=== PATIENT | male | born 1950 | race American Indian/Alaskan Native ===

== ENCOUNTER 2016-12-21 12:47 | Emergency (ER) | payer MEDICARE ==
[2016-12-21 13:29] LABS: Basophils % (Auto) 0.7 % (0.0-1.8); Eosinophils % (Auto) 2.9 % (0.0-4.3); Hematocrit 41.9 % (35.5-45.6); Hemoglobin 13.7 gm/dl (11.8-15.2); Mean Corpuscular HGB Conc 33 % (32-34); Mean Corpuscular Hemoglobin 27 pg (28-32); Mean Corpuscular Volume 82 fl (84-94); Platelet Count 162 K/mm3 (140-440); Red Cell Distribution Width 15.7 % (13.2-15.2); White Blood Count 5.1 K/mm3 (4.5-11.0)
[2016-12-21] MEDS ORDERED: PHENERGAN PO ONE (16:59)
[2016-12-21 17:10] LABS: Anion Gap 14 mmol/L; Blood Urea Nitrogen 16 mg/dL (9-20); Calcium 9.7 mg/dL (8.4-10.2); Carbon Dioxide 30 mmol/L (22-30); Chloride 105.6 mmol/L (98-107); Glucose 125 mg/dL (75-100); Potassium 4.6 mmol/L (3.6-5.0); Sodium 145 mmol/L (137-145)
--- NOTE | 2016-12-21 17:55 | Emergency Department Report ---
HPI - General Chief Complaint: High BP Time Seen by Provider: 12/21/16 16:59 - HPI HPI: patient is her with dizziness, high blood pressure, nausea, vomiting x 1. he states he thinks he has food poisoning because he ate some bad salmon last night and that's when symptoms started. He is a [facility] patient and couldn't get an appointment in time, so he came to er. patient states he is compliant with medications. He denies any headache, chest pain or sob. ED Past Medical Hx - Past Medical History Previous Medical History?: Yes Hx Hypertension: Yes Hx Diabetes: Yes Additional medical history: neuropathy - Surgical History Past Surgical History?: Yes Additional Surgical History: neck and back surgery 2011 - Social History Smoking Status: Former Smoker Substance Use Type: None - Medications Home Medications: Home Medications Medication Instructions Recorded Confirmed Last Taken Type Carvedilol [Coreg] 25 mg PO BID 12/21/16 12/21/16 12/21/16 History Other B/P Med And Unable To Name 12/21/16 Unknown History Promethazine [Phenergan TAB] 25 mg PO Q6HR PRN #14 tab 12/21/16 Unknown Rx amLODIPine [Norvasc] 10 mg PO DAILY 12/21/16 12/21/16 12/21/16 History ED Review of Systems ROS: Stated complaint: BLOOD PRESSURE HIGH ,DIZZY Other details as noted in HPI Comment: All other systems reviewed and negative Cardiovascular: denies: chest pain, palpitations Endocrine: no symptoms reported Gastrointestinal: nausea, vomiting Neurological: headache, weakness Physical Exam - Physical Exam Vital Signs: Vital Signs 12/21/16 12/21/16 12/21/16 12:48 17:04 17:11 Temperature 98.5 F Pulse Rate 70 61 61 Respiratory 16 14 18 Rate Blood Pressure 168/96 Blood Pressure 211/105 [Right] O2 Sat by Pulse 95 97 97 Oximetry 12/21/16 12/21/16 17:16 17:30 Temperature Pulse Rate 61 60 Respiratory 22 19 Rate Blood Pressure 214/103 203/105 Blood Pressure [Right] O2 Sat by Pulse 96 96 Oximetry Physical Exam: - Physical Exam - General Limitations: No Limitations General appearance: alert, in no apparent distress, - Head Head exam: Present: atraumatic, normocephalic - Eye Eye exam: Present: normal appearance - ENT ENT exam: Present: mucous membranes moist - Neck Neck exam: Present: normal inspection - Respiratory Respiratory exam: Present: normal lung sounds bilaterally. Absent: respiratory distress - Cardiovascular Cardiovascular Exam: Present: normal rhythm, normal rate. Absent: systolic murmur, diastolic murmur, rubs, gallop - GI/Abdominal GI/Abdominal exam: Present: soft, normal bowel sounds - Extremities Exam Extremities exam: Present: normal inspection - Back Exam Back exam: Present: normal inspection - Neurological Exam Neurological exam: Present: alert, oriented X3 - Psychiatric Psychiatric exam: normal affect and mood but denies suicidal ideations, denies homicidal ideation - Skin Skin exam: Present: warm, dry, intact, normal color. Absent: rash ED Course Vital Signs 12/21/16 12/21/16 12/21/16 12:48 17:04 17:11 Temperature 98.5 F Pulse Rate 70 61 61 Respiratory 16 14 18 Rate Blood Pressure 168/96 Blood Pressure 211/105 [Right] O2 Sat by Pulse 95 97 97 Oximetry 12/21/16 12/21/16 17:16 17:30 Temperature Pulse Rate 61 60 Respiratory 22 19 Rate Blood Pressure 214/103 203/105 Blood Pressure [Right] O2 Sat by Pulse 96 96 Oximetry ED Medical Decision Making - Lab Data Result diagrams: 12/21/16 13:16 12/21/16 16:34 Critical care attestation.: If time is entered above; I have spent that time in minutes in the direct care of this critically ill patient, excluding procedure time. ED Disposition Clinical Impression: Enteritis, Labile blood glucose Disposition: DC-01 TO HOME OR SELFCARE Is pt being admited?: No Does the pt Need Aspirin: No Condition: Stable Prescriptions: Promethazine [Phenergan TAB] 25 mg PO Q6HR PRN #14 tab PRN Reason: Nausea [facility]Other] - 3-5 Days
[2016-12-21] MEDS ORDERED: CATAPRES PO ONE (18:31)
[2016-12-21 20:20] VITALS: BP 177/89
== END 2016-12-21 20:20 | disposition home or self-care (01) ==
LOC: ED 12:47
DX: K52.9 Noninfective gastroenteritis and colitis, unspecified (principal); R73.02 Impaired glucose tolerance (oral); I10 Essential (primary) hypertension; E11.9 Type 2 diabetes mellitus without complications; Z87.891 Personal history of nicotine dependence
CPT/HCPCS: 36415; 80048; 82962; 84484; 85025; 93005; 93010; Q0169

== ENCOUNTER 2018-05-05 21:10 | Inpatient (IN) | payer MEDICARE ==
[2018-05-05] MEDS ORDERED: LASIX IV ONE (21:32)
--- NOTE | 2018-05-05 21:37 | Emergency Department Report ---
ED Shortness of Breath HPI - General Chief Complaint: Arrhythmia/Palpitations Stated Complaint: FLUTTERING IN CHEST Time Seen by Provider: 05/05/18 21:32 Source: patient, EMS Mode of arrival: Stretcher Limitations: No Limitations - History of Present Illness Initial Comments: Patient is 67 years old male with history of hypertension, diabetes and atrial fibrillation on Cardizem and warfarin. Patient presented to the ER complaining of shortness of breath for the last 3-4 days associated with palpitation. Patient denied any chest pain, fever, nausea or vomiting. MD Complaint: shortness of breath -: days(s) Severity: moderate - Related Data Home Medications Medication Instructions Recorded Confirmed Last Taken Lisinopril 20 mg PO DAILY 05/05/18 05/05/18 Unknown Warfarin [Coumadin] 10 mg PO QDAY 05/05/18 05/05/18 Unknown Previous Rx's Medication Instructions Recorded Last Taken Type Carvedilol [Coreg] 25 mg PO BID #60 tablet 12/21/16 Unknown Rx Allergies Allergy/AdvReac Type Severity Reaction Status Date / Time No Known Allergies Allergy Unverified 12/21/16 12:48 ED Review of Systems ROS: Stated complaint: FLUTTERING IN CHEST Other details as noted in HPI Comment: All other systems reviewed and negative Constitutional: denies: chills, fever Respiratory: orthopnea, shortness of breath, SOB with exertion, SOB at rest. denies: cough, stridor, wheezing Cardiovascular: palpitations, dyspnea on exertion, orthopnea, edema. denies: chest pain Gastrointestinal: denies: abdominal pain, nausea, vomiting, diarrhea, constipation, hematemesis, melena, hematochezia Genitourinary: denies: urgency, dysuria Neurological: denies: headache, weakness, numbness, paresthesias, confusion ED Past Medical Hx - Past Medical History Previous Medical History?: Yes Hx Hypertension: Yes Hx Diabetes: Yes Additional medical history: neuropathy. a-fib - Surgical History Past Surgical History?: Yes Additional Surgical History: neck and back surgery 2012 - Social History Smoking Status: Never Smoker Substance Use Type: None - Medications Home Medications: Home Medications Medication Instructions Recorded Confirmed Last Taken Type Carvedilol [Coreg] 25 mg PO BID #60 tablet 12/21/16 05/05/18 Unknown Rx Lisinopril 20 mg PO DAILY 05/05/18 05/05/18 Unknown History Warfarin [Coumadin] 10 mg PO QDAY 05/05/18 05/05/18 Unknown History ED Physical Exam - General Limitations: No Limitations General appearance: alert, in no apparent distress - Head Head exam: Present: atraumatic, normocephalic, normal inspection - Eye Eye exam: Present: normal appearance - ENT ENT exam: Present: normal exam, normal orophraynx, mucous membranes moist - Neck Neck exam: Present: normal inspection, full ROM. Absent: tenderness, meningismus, lymphadenopathy, thyromegaly - Respiratory Respiratory exam: Present: decreased breath sounds. Absent: respiratory distress, wheezes, rales, rhonchi, stridor, accessory muscle use, prolonged expiratory - Cardiovascular Cardiovascular Exam: Present: irregular rhythm, normal heart sounds - GI/Abdominal GI/Abdominal exam: Present: soft, normal bowel sounds. Absent: distended, tenderness, guarding, rebound, rigid, organomegaly, mass, bruit, pulsatile mass, hernia - Extremities Exam Extremities exam: Present: normal inspection, full ROM, normal capillary refill - Back Exam Back exam: Present: normal inspection, full ROM. Absent: CVA tenderness (R), CVA tenderness (L), muscle spasm, paraspinal tenderness, vertebral tenderness - Neurological Exam Neurological exam: Present: alert, oriented X3, CN II-XII intact, normal gait, reflexes normal - Skin Skin exam: Present: warm, intact, normal color ED Course Vital Signs 05/05/18 05/05/18 05/05/18 21:16 21:17 21:30 Temperature 98.0 F Pulse Rate 80 92 H 76 Respiratory 16 14 16 Rate Blood Pressure 164/104 O2 Sat by Pulse 98 97 100 Oximetry 05/05/18 05/05/18 05/05/18 21:35 21:59 22:01 Temperature Pulse Rate 82 85 Respiratory 16 20 Rate Blood Pressure 164/104 O2 Sat by Pulse 98 99 Oximetry 05/05/18 05/05/18 05/05/18 22:30 23:00 23:31 Temperature Pulse Rate 99 H 86 92 H Respiratory 19 22 22 Rate Blood Pressure 175/126 174/103 193/115 O2 Sat by Pulse 99 96 96 Oximetry ED Medical Decision Making - Lab Data Result diagrams: 05/05/18 22:34 05/05/18 22:20 - EKG Data -: EKG Interpreted by Il - EKG Data 05/05/18 21:36 Atrial fibrillation with no RVR - Radiology Data Radiology results: report reviewed Referring Physician: DONNA LEON Patient Name: EDINSON DODD Date of : 1950 Sex: Male Report Date: 2018-05-05 Report Status: Finalized Findings [facility] [address] [place] [address] XRay Report Signed Patient: EDINSON DODD MR#: [id number] : 1950 Acct:[id number] Age/Sex: 67 / M ADM Date: 05/05/18 Loc: ED Attending Dr: Ordering Physician: DONNA LEON Date of Service: 05/05/18 Procedure(s): XR chest 1V ap Accession Number(s): [id number] cc: DONNA LEON Fluoro Time In Minutes: FINAL REPORT EXAM: XR CHEST 1V AP HISTORY: Dyspnea COMPARISON: None available. FINDINGS: Frontal view(s) of the chest obtained. Mild cardiac enlargement. No gross consolidation or effusion. No pneumothorax. IMPRESSION: Mild cardiac enlargement. Lungs are grossly clear. Transcribed By: LMA Dictated By: KATIE MUNGUIA MD Electronically Authenticated By: KATIE MUNGUIA MD Signed Date/Time: 05/05/182299 DD/ 01 TD/TT: 05/05/182301 - Medical Decision Making Patient is 67 years old male with history of hypertension, diabetes and atrial fibrillation on Cardizem and warfarin. Patient presented to the ER complaining of shortness of breath for the last 3-4 days associated with palpitation. Patient denied any chest pain, fever, nausea or vomiting. EKG show atrial fibrillation with normal RVR. Chest x-ray is negative for acute findings A for cardiomegaly. Patient found to have a new onset congestive heart failure. Patient given Lasix and nitroglycerin. I discussed the patient is Dr. Elizabeth Juarez, she agreed to admit the patient to medical service. Critical care attestation.: If time is entered above; I have spent that time in minutes in the direct care of this critically ill patient, excluding procedure time. ED Disposition Clinical Impression: Shortness of breath, CHF exacerbation, Atrial fibrillation Disposition: OP ADMIT IP TO THIS HOSP Is pt being admited?: Yes Condition: Stable Referrals: CESAR ALVAREZ [Primary Care Provider] - 3-5 Days
[2018-05-05 22:46] LABS: Basophils % (Auto) 0.9 % (0.0-1.8); Eosinophils # (Auto) 0.2 K/mm3 (0.0-0.4); Eosinophils % (Auto) 3.6 % (0.0-4.3); Hematocrit 33.5 % (35.5-45.6); Hemoglobin 10.2 gm/dl (11.8-15.2); Lymphocytes # (Auto) 1.2 K/mm3 (1.2-5.4); Lymphocytes % (Auto) 23.7 % (13.4-35.0); Mean Corpuscular HGB Conc 31 % (32-34); Mean Corpuscular Volume 76 fl (84-94); Monocytes # (Auto) 0.4 K/mm3 (0.0-0.8); Monocytes % (Auto) 8.9 % (0.0-7.3); Platelet Count 197 K/mm3 (140-440); Red Blood Count 4.38 M/mm3 (3.65-5.03); Red Cell Distribution Width 17.5 % (13.2-15.2)
[2018-05-05 22:55] LABS: INR 2.26 (0.87-1.13)
--- NOTE | 2018-05-05 23:00 | XRay Report ---
FINAL REPORT EXAM: XR CHEST 1V AP HISTORY: Dyspnea COMPARISON: None available. FINDINGS: Frontal view(s) of the chest obtained. Mild cardiac enlargement. No gross consolidation or effusion. No pneumothorax. IMPRESSION: Mild cardiac enlargement. Lungs are grossly clear.
[2018-05-05 23:09] LABS: BUN/Creatinine Ratio 10; Blood Urea Nitrogen 13 mg/dL (9-20); Calcium 8.7 mg/dL (8.4-10.2); Hemolysis Index 2
[2018-05-05] MEDS ORDERED: NITROSTAT SL ONE ×2 (23:42)
--- NOTE | 2018-05-05 23:56 | History and Physical Report ---
History of Present Illness Date of examination: 05/05/18 History of present illness: 67-year-old male with a history of hypertension, diabetes, A. fib, PE, DVT on Coumadin comes emergency room with complaint of shortness of breath and lower extremity edema, dyspnea on exertion. He also stated that his heart has been fl uttering. He is status post cardioversion for A. fib on April 29. No PND, orthopnea Review of systems Constitutional: no weight loss, chills Ears, eyes, nose, mouth and throat: no nasal congestion, no nasal discharge, no sinus pressure, no vision change, no red eye. Neck: No neck pain or rigidity. Cardiovascular: no palpitations, chest pain Respiratory: no cough, +shortness of breath Gastrointestinal: no hematochezia, abdominal pain Genitourinary : no frequency , no hematuria Musculoskeletal: no joint swelling or muscle ache Integumentary: no rash, no pruritis Neurological: no parathesias, no focal weakness Endocrine: no cold or heat intolerance, no polyuria or polydipsia Hematologic/Lymphatic: no easy bruising, no easy bleeding, no gland swelling Allergic/Immunologic: no urticaria, no angioedema. PAST MEDICAL HISTORY: hypertension, diabetes, A. fib, PE, DVT on Coumadin PAST SURGICAL HISTORY: Neck and back SOCIAL HISTORY: Denies alcohol, drugs, tobacco FAMILY HISTORY: Hypertension Medications and Allergies Allergies Allergy/AdvReac Type Severity Reaction Status Date / Time No Known Allergies Allergy Verified 05/05/18 23:54 Home Medications Medication Instructions Recorded Confirmed Last Taken Type Carvedilol [Coreg] 25 mg PO BID #60 tablet 12/21/16 05/05/18 Unknown Rx Lisinopril 20 mg PO DAILY 05/05/18 05/05/18 Unknown History Warfarin [Coumadin] 10 mg PO QDAY 05/05/18 05/05/18 Unknown History Exam - Physical Exam Narrative exam: General Apperance: The patient lying in bed, breathing comfortable HEENT: Normocephalic, atraumatic. Pupils equally round and reactive to light, EOMI, no sclericterus or JVD or thyromegaly or nodule. , no carotid bruit, mucous membranes moist, no exudate or erythema Heart: S1-S2, regular is rhythm Lungs: Clear to auscultation bilaterally, breathing comfortable Abdomen: Positive bowel sounds, soft, nontender, nondistended, no organomegaly Extremities: trace edema no cyanosis clubbing Skin: no rash, nodule, warm and dry Neuro: cranial nerves 2-12 intact, speech is fluent, motor/sensory intact - Constitutional Vitals: Temp Pulse Resp BP Pulse Ox 98.0 F 92 H 22 193/115 96 05/05/18 21:16 05/05/18 23:31 05/05/18 23:31 05/05/18 23:31 05/05/18 23:31 Results - Labs CBC & Chem 7: 05/05/18 22:34 05/05/18 22:20 Labs: Abnormal lab results 05/05/18 05/05/18 05/05/18 Range/Units 22:20 22:34 22:34 Hgb 10.2 L (11.8-15.2) gm/dl Hct 33.5 L (35.5-45.6) % MCV 76 L (84-94) fl MCH 23 L (28-32) pg MCHC 31 L (32-34) % RDW 17.5 H (13.2-15.2) % [place] % (Auto) 8.9 H (0.0-7.3) % PT 25.3 H (12.2-14.9) Sec. INR 2.26 H (0.87-1.13) APTT 43.0 H (24.2-36.6) Sec. NT-Pro-B Natriuret Pep 3743 H (0-900) pg/mL - Imaging and Cardiology EKG: image reviewed Chest x-ray: report reviewed Assessment and Plan Assessment Atrial fibrillation , acute on chronic Shortness of breath secondary to recurrence of A. fib Hypertension Diabetes History of PE, DVT Plan Admit to medicine Start Lasix, check cardiac enzymes, echo Consult cardiology Continue Coumadin, check PT/INR 6 initiate insulin sliding scale DVT prophylaxis
[2018-05-06] MEDS ORDERED: SODIUM CHLORIDE FLUSH SYRINGE 10 ML IV PRN (01:11)
[2018-05-06] MEDS ORDERED: ZOFRAN IV PRN (01:11)
[2018-05-06] MEDS ORDERED: PERCOCET 5/325 PO PRN (01:11)
[2018-05-06] MEDS ORDERED: APRESOLINE IV PRN (05:36)
[2018-05-06] MEDS: TYLENOL PO PRN ×2 (05:39→12:58)
[2018-05-06 06:22] LABS: Basophils # (Auto) 0.1 K/mm3 (0.0-0.1); Basophils % (Auto) 1.1 % (0.0-1.8); Eosinophils # (Auto) 0.2 K/mm3 (0.0-0.4); Hematocrit 34.3 % (35.5-45.6); Hemoglobin 10.8 gm/dl (11.8-15.2); Lymphocytes # (Auto) 1.6 K/mm3 (1.2-5.4); Lymphocytes % (Auto) 29.7 % (13.4-35.0); Mean Corpuscular HGB Conc 32 % (32-34); Mean Corpuscular Volume 76 fl (84-94); Monocytes # (Auto) 0.4 K/mm3 (0.0-0.8); Monocytes % (Auto) 8.5 % (0.0-7.3); Platelet Count 194 K/mm3 (140-440); Red Blood Count 4.53 M/mm3 (3.65-5.03); Red Cell Distribution Width 17.8 % (13.2-15.2)
[2018-05-06 06:34] LABS: INR 2.16 (0.87-1.13); Partial Thromboplastin Time 38.9 Sec. (24.2-36.6)
[2018-05-06 06:41] LABS: Creatine Kinase MB < 1.0 ng/mL (0.0-4.0)
[2018-05-06 07:05] LABS: BUN/Creatinine Ratio 9; Blood Urea Nitrogen 12 mg/dL (9-20); Calcium 9.1 mg/dL (8.4-10.2); Hemolysis Index 2
[2018-05-06] MEDS ORDERED: K-DUR PO ONE ×2 (10:00→12:30)
[2018-05-06] MEDS ORDERED: LOVENOX SUB-Q SCH (10:00)
--- NOTE | 2018-05-06 12:36 | Event Note ---
Date: 05/06/18 Cardiology consultation is dictated. #1 dyspnea #2 atrial fibrillation on anticoagulation #3 hypertension #4 diabetes #5 hyperlipidemia #6 left ventricular systolic dysfunction and mild pulmonary hypertension #7 history of DVT and pulmonary embolism Patient is seen for cardiac evaluation. Reviewed the medications. Agree with current management. Continue current management. Patient will be monitored and followed closely with you Thank you Dr. ORESTES Landry
[2018-05-06] MEDS: ZESTRIL PO SCH (12:53)
[2018-05-06] MEDS: LASIX IV SCH (12:53)
[2018-05-06] MEDS: COREG PO SCH ×2 (12:54→21:11)
[2018-05-06] MEDS: SODIUM CHLORIDE FLUSH SYRINGE 10 ML IV SCH ×2 (12:54→21:09)
--- NOTE | 2018-05-06 13:24 | Consultation ---
CARDIOLOGY EVALUATION REFERRING PHYSICIAN: Dr. Regalado. HISTORY OF PRESENT ILLNESS: The patient is a 67-year-old gentleman admitted with increasing difficulty in breathing of about 3-4 days' duration. This is mostly on exertion and also associated with mild edema. The patient is known to have atrial fibrillation for about 5-6 years. He is also known to have hypertension, diabetes, and hyperlipidemia. The patient is also known to have had pulmonary embolism and thrombophlebitis in the past. The patient continues to smoke against medical advice. Nonalcoholic. No previous myocardial infarction. No definite history of congestive heart failure in the past. REVIEW OF SYSTEMS: HEAD, EYES, EARS, NOSE AND THROAT: He complains of mild headache occasionally. ENDOCRINE: Known to have diabetes. No history of thyroid problems. GASTROINTESTINAL: Has occasional abdominal discomfort. No definite peptic ulcer disease or gallbladder. Bowel habits have been regular. GENITOURINARY: No symptoms. CENTRAL NERVOUS SYSTEM: In 2014, the patient had a transient ischemic episode or cerebrovascular accident, manifested with left-sided weakness. LOCOMOTOR: No symptoms currently, but the patient is known to have had significant back and neck problems and had surgery on the neck and back. HEME/ONC: No symptoms. PHYSICAL EXAMINATION: GENERAL: Adult gentleman, well built, well nourished, in no distress, pleasant and cooperative. VITAL SIGNS: Blood pressure 145/79, pulse 77 irregular. HEAD, EYES, EARS, NOSE AND THROAT: Unremarkable. NECK: Supple. No thyromegaly. Both carotids are palpable and equal. Neck veins are flat. CHEST: Symmetrical. LUNGS: Essentially clear. CARDIOVASCULAR: S1 and S2 are heard well. ABDOMEN: Soft, nontender. EXTREMITIES: Minimal edema is present. No calf tenderness. DIAGNOSTIC AND LABORATORY DATA: Rhythm strips that show atrial fibrillation, currently with satisfactory ventricular response. EKG, atrial fibrillation, nonspecific ST changes. Chest x-ray, mild cardiomegaly, no acute abnormalities. Echocardiogram, mildly reduced left ventricular systolic function with ejection fraction of 40-45%, mild mitral regurgitation, minimal tricuspid regurgitation. Right ventricular systolic pressure is noted to be 44, which is mildly elevated. Hemoglobin 10.8, hematocrit 34.3. WBC 5.3. INR 2.16, potassium 3.5. Sodium 146, blood sugar 110. ProBNP 3746. IMPRESSION: 1. Dyspnea with mild congestive heart failure. 2. Systolic dysfunction. 3. Atrial fibrillation, on anticoagulants. 4. Hypertension. 5. Diabetes. 6. History of hyperlipidemia. 7. History of cerebrovascular accident in 2015. PLAN: The patient is seen for cardiac evaluation. At present, he seems to be improving and I have reviewed the medications. We will continue current management at this time. The patient will be followed closely along with you. Thank you for allowing me to participate in the care of this gentleman. JOB# [id number] [email or web address]/NTS
--- NOTE | 2018-05-06 16:50 | Progress Note ---
Assessment and Plan Assessment and plan: A fib with RVR - Rate controlled, continue Coumadin, INR is therapeutic Acute systolic CHF - Ejection fraction is 40-45% - Patient is on IV Lasix - Cardiology consulted Diabetes mellitus - Sliding scale insulin - Accu-Chek, ADA diet History of PE, DVT - Patient is on Coumadin Disposition - continue inpatient care. History Interval history: Patient was seen and evaluated this morning, patient's shortness of breath is getting better. Patient does have occasional fluttering of his heart. Hospitalist Physical - Physical exam Narrative exam: Not in cardiopulmonary distress. The patient appeared well nourished and normally developed. Vital signs as documented. Head exam is unremarkable. No scleral icterus . Neck is without jugular venous distension, thyromegaly, or carotid bruits. Lungs are clear to auscultation. Cardiac exam reveals irregular rate and Rhythm. Abdominal exam reveals normal bowel sounds, no masses, no organomegaly and no aortic enlargement. Extremities are nonedematous and both femoral and pedal pulses are normal. SQL CONSULTANT: Alert and oriented 3. No focal weakness. - Constitutional Vitals: Temp Pulse Resp BP Pulse Ox 97.4 F L 77 18 145/79 99 05/06/18 08:02 05/06/18 08:02 05/06/18 08:02 05/06/18 08:02 05/06/18 12:07 Results - Labs CBC & Chem 7: 05/06/18 05:50 05/06/18 05:50 Labs: Laboratory Last Values WBC 5.3 K/mm3 (4.5-11.0) 05/06/18 05:50 RBC 4.53 M/mm3 (3.65-5.03) 05/06/18 05:50 Hgb 10.8 gm/dl (11.8-15.2) L 05/06/18 05:50 Hct 34.3 % (35.5-45.6) L 05/06/18 05:50 MCV 76 fl (84-94) L 05/06/18 05:50 MCH 24 pg (28-32) L 05/06/18 05:50 MCHC 32 % (32-34) 05/06/18 05:50 RDW 17.8 % (13.2-15.2) H 05/06/18 05:50 Plt Count 194 K/mm3 (140-440) 05/06/18 05:50 Lymph % (Auto) 29.7 % (13.4-35.0) 05/06/18 05:50 [place] % (Auto) 8.5 % (0.0-7.3) H 05/06/18 05:50 Eos % (Auto) 3.0 % (0.0-4.3) 05/06/18 05:50 Baso % (Auto) 1.1 % (0.0-1.8) 05/06/18 05:50 Lymph # 1.6 K/mm3 (1.2-5.4) 05/06/18 05:50 [place] # 0.4 K/mm3 (0.0-0.8) 05/06/18 05:50 Eos # 0.2 K/mm3 (0.0-0.4) 05/06/18 05:50 Baso # 0.1 K/mm3 (0.0-0.1) 05/06/18 05:50 Seg Neutrophils % 57.7 % (40.0-70.0) 05/06/18 05:50 Seg Neutrophils # 3.0 K/mm3 (1.8-7.7) 05/06/18 05:50 PT 24.5 Sec. (12.2-14.9) H 05/06/18 05:50 INR 2.16 (0.87-1.13) H 05/06/18 05:50 APTT 38.9 Sec. (24.2-36.6) H 05/06/18 05:50 Sodium 146 mmol/L (137-145) H 05/06/18 05:50 Potassium 3.5 mmol/L (3.6-5.0) L 05/06/18 05:50 Chloride 104.2 mmol/L (98-107) 05/06/18 05:50 Carbon Dioxide 29 mmol/L (22-30) 05/06/18 05:50 Anion Gap 16 mmol/L 05/06/18 05:50 BUN 12 mg/dL (9-20) 05/06/18 05:50 Creatinine 1.3 mg/dL (0.8-1.5) 05/06/18 05:50 Estimated GFR > 60 ml/min 05/06/18 05:50 BUN/Creatinine Ratio 9 % 05/06/18 05:50 Glucose 110 mg/dL (75-100) H 05/06/18 05:50 Calcium 9.1 mg/dL (8.4-10.2) 05/06/18 05:50 Total Creatine Kinase 69 units/L (55-170) 05/06/18 05:50 CK-MB (CK-2) < 1.0 ng/mL (0.0-4.0) 05/06/18 05:50 CK-MB (CK-2) Rel Index 1.4 (0-4) 05/06/18 05:50 Troponin T < 0.010 ng/mL (0.00-0.029) 05/06/18 05:50 NT-Pro-B Natriuret Pep 3743 pg/mL (0-900) H 05/05/18 22:20
[2018-05-06] MEDS ORDERED: COUMADIN PO SCH (17:00)
[2018-05-07 06:16] LABS: INR 2.5 (0.87-1.13)
[2018-05-07 06:40] LABS: Calcium 8.9 mg/dL (8.4-10.2)
[2018-05-07] MEDS: ZESTRIL PO SCH (10:32)
[2018-05-07] MEDS: LASIX IV SCH (10:32)
[2018-05-07] MEDS: COREG PO SCH (10:33)
[2018-05-07] MEDS: SODIUM CHLORIDE FLUSH SYRINGE 10 ML IV SCH (10:33)
--- NOTE | 2018-05-07 11:32 | Progress Note ---
Assessment and Plan Assessment and plan: 67m pw sob, bipedal edema A fib with RVR - Rate controlled, continue Coumadin, INR is therapeutic Acute systolic CHF - Ejection fraction is 40-45% - Patient is on IV Lasix - Cardiology consulted Diabetes mellitus - SSI, fup a1c History of PE, DVT - Patient is on Coumadin Disposition - continue inpatient care. Hospitalist Physical - Constitutional Vitals: Temp Pulse Resp BP Pulse Ox 98.2 F 73 18 132/87 98 05/07/18 08:44 05/07/18 10:33 05/07/18 08:44 05/07/18 10:33 05/07/18 10:00 Results - Labs CBC & Chem 7: 05/06/18 05:50 05/07/18 05:15 Labs: Laboratory Last Values WBC 5.3 K/mm3 (4.5-11.0) 05/06/18 05:50 RBC 4.53 M/mm3 (3.65-5.03) 05/06/18 05:50 Hgb 10.8 gm/dl (11.8-15.2) L 05/06/18 05:50 Hct 34.3 % (35.5-45.6) L 05/06/18 05:50 MCV 76 fl (84-94) L 05/06/18 05:50 MCH 24 pg (28-32) L 05/06/18 05:50 MCHC 32 % (32-34) 05/06/18 05:50 RDW 17.8 % (13.2-15.2) H 05/06/18 05:50 Plt Count 194 K/mm3 (140-440) 05/06/18 05:50 Lymph % (Auto) 29.7 % (13.4-35.0) 05/06/18 05:50 [place] % (Auto) 8.5 % (0.0-7.3) H 05/06/18 05:50 Eos % (Auto) 3.0 % (0.0-4.3) 05/06/18 05:50 Baso % (Auto) 1.1 % (0.0-1.8) 05/06/18 05:50 Lymph # 1.6 K/mm3 (1.2-5.4) 05/06/18 05:50 [place] # 0.4 K/mm3 (0.0-0.8) 05/06/18 05:50 Eos # 0.2 K/mm3 (0.0-0.4) 05/06/18 05:50 Baso # 0.1 K/mm3 (0.0-0.1) 05/06/18 05:50 Seg Neutrophils % 57.7 % (40.0-70.0) 05/06/18 05:50 Seg Neutrophils # 3.0 K/mm3 (1.8-7.7) 05/06/18 05:50 PT 27.4 Sec. (12.2-14.9) H 05/07/18 05:15 INR 2.50 (0.87-1.13) H 05/07/18 05:15 APTT 38.9 Sec. (24.2-36.6) H 05/06/18 05:50 Sodium 147 mmol/L (137-145) H 05/07/18 05:15 Potassium 3.5 mmol/L (3.6-5.0) L 05/07/18 05:15 Chloride 106.8 mmol/L (98-107) 05/07/18 05:15 Carbon Dioxide 28 mmol/L (22-30) 05/07/18 05:15 Anion Gap 16 mmol/L 05/07/18 05:15 BUN 15 mg/dL (9-20) 05/07/18 05:15 Creatinine 1.5 mg/dL (0.8-1.5) 05/07/18 05:15 Estimated GFR 56 ml/min 05/07/18 05:15 BUN/Creatinine Ratio 10 % 05/07/18 05:15 Glucose 114 mg/dL (75-100) H 05/07/18 05:15 Calcium 8.9 mg/dL (8.4-10.2) 05/07/18 05:15 Total Creatine Kinase 69 units/L (55-170) 05/06/18 05:50 CK-MB (CK-2) < 1.0 ng/mL (0.0-4.0) 05/06/18 05:50 CK-MB (CK-2) Rel Index 1.4 (0-4) 05/06/18 05:50 Troponin T < 0.010 ng/mL (0.00-0.029) 05/06/18 05:50 NT-Pro-B Natriuret Pep 3743 pg/mL (0-900) H 05/05/18 22:20 Nutrition/Malnutrition Assess - Dietary Evaluation Nutrition/Malnutrition Findings: Nutrition Notes Start: 05/06/18 17:35 Freq: Status: Active Protocol: Document 05/06/18 17:35 RM (Rec: 05/06/18 17:36 RM [id number]) Nutrition Notes Need for Assessment generated from: Education Initial or Follow up Brief Note Subjective/Other Information Pt screened for Coumadin/Vit K diet education. Pt already familiar with diet. Nutrition Intervention Revisit per MD consult or patient Sign Off request:
--- NOTE | 2018-05-07 12:15 | Progress Note ---
Assessment and Plan Echo reviewed - EF 40-45%, mild MR, trace TR, mild pulm HTN RVSP 44mmHg. Currently stable cardiac status. Pt reports resolution of his palpitations and dyspnea. Pt may discharge home from cardiology standpoint on home cardiac regimen, including Coumadin with tx INR 2-3. Recommend pt follow up with [facility] within 1-2 weeks of hospital discharge. Pt verbalizes understanding. The patient has been seen in conjunction with Dr. ORESTES Landry who agrees with the assessment and plan of care. - Patient Problems (1) Dyspnea Current Visit: Yes Status: Acute (2) Atrial fibrillation Current Visit: Yes Status: Acute (3) HTN (hypertension) Current Visit: Yes Status: Acute (4) Diabetes Current Visit: Yes Status: Acute (5) Hyperlipidemia Current Visit: Yes Status: Acute (6) History of DVT (deep vein thrombosis) Current Visit: Yes Status: Acute (7) History of pulmonary embolism Current Visit: Yes Status: Acute (8) LV dysfunction Current Visit: Yes Status: Chronic (9) Pulmonary hypertension Current Visit: Yes Status: Chronic Subjective Date of service: 05/07/18 Principal diagnosis: SOB, palpitations Interval history: pt resting in bed, no current cardiac complaints. states he is feeling much better and requesting to be discharged home. tele reviewed - in AFib/AFlutter with CVR. Objective Last Vital Signs Temp 98.2 F 05/07/18 08:44 Pulse 73 05/07/18 10:33 Resp 18 05/07/18 08:44 BP 132/87 05/07/18 10:33 Pulse Ox 98 05/07/18 10:00 - Physical Examination General: No Apparent Distress HEENT: Positive: PERRL, Normocephaly, Mucus Membranes Moist Neck: Positive: neck supple, trachea midline Cardiac: Positive: irregularly irregular, S1/S2 Lungs: Positive: Decreased Breath Sounds Neuro: Positive: Grossly Intact Abdomen: Positive: Soft. Negative: Tender Skin: Negative: Rash, Wound Musculoskeletal: No Pain Extremities: Absent: edema - Labs and Meds Coagulation 05/07/18 Range/Units 05:15 PT 27.4 H (12.2-14.9) Sec. INR 2.50 H (0.87-1.13) Comprehensive Metabolic Panel 05/07/18 Range/Units 05:15 Sodium 147 H (137-145) mmol/L Potassium 3.5 L (3.6-5.0) mmol/L Chloride 106.8 (98-107) mmol/L Carbon Dioxide 28 (22-30) mmol/L BUN 15 (9-20) mg/dL Creatinine 1.5 (0.8-1.5) mg/dL Glucose 114 H (75-100) mg/dL Calcium 8.9 (8.4-10.2) mg/dL - Imaging and Cardiology EKG: report reviewed, image reviewed Echo: report reviewed (05/06/2018: EF 40-45%, mild MR, trace TR, mild pulm HTN RVSP 44mmHg) - Telemetry EKG Rhythm: Atrial Fibrillation
[2018-05-07 12:57] VITALS: BP 132/70
--- NOTE | 2018-05-07 14:31 | Discharge Summary ---
Providers - Providers Date of Admission: 05/05/18 23:56 Attending physician: DAWOOD TRAYLOR MD 05/06/18 01:11 Consult to Physician [CONS] Routine Comment: Consulting Provider: MICHELLE CLIFTON Physician Instructions: Reason For Exam: afib/sob Primary care physician: CESAR ALVAREZ Hospitalization Condition: Stable Hospital course: 67-year-old man with history of A. fib. He presented with palpitations and shortness of breath. The patient was treated with IV diuresis, his medications were optimized for rate control. The patient was continued on his coagulants, his INR was therapeutic. She clinically improved and was subsequently discharged. He was comanaged by cardiology during his hospital stay who agreed with the plan of care Diagnoses A fib with RVR Hypercoagulable states Acute on chronic systolic CHF Diabetes mellitus History of PE, DVT - Disposition: - TO HOME OR SELFCARE Time spent for discharge: 33 minutes Core Measure Documentation - Palliative Care Palliative Care/ Comfort Measures: Not Applicable - Core Measures Any of the following diagnoses?: none Exam - Constitutional Vitals: Temp Pulse Resp BP Pulse Ox 98.2 F 73 18 132/70 90 05/07/18 08:44 05/07/18 11:46 05/07/18 08:44 05/07/18 11:46 05/07/18 11:46 General appearance: Present: no acute distress, well-nourished - EENT Eyes: Present: PERRL ENT: hearing intact, clear oral mucosa - Neck Neck: Present: supple, normal ROM - Respiratory Respiratory effort: normal Respiratory: bilateral: CTA - Cardiovascular Heart Sounds: Present: S1 & S2. Absent: rub, click - Extremities Extremities: pulses symmetrical, No edema Peripheral Pulses: within normal limits - Abdominal General gastrointestinal: Present: soft, non-tender, non-distended, normal bowel sounds Male genitourinary: Present: normal - Integumentary Integumentary: Present: clear, warm, dry - Musculoskeletal Musculoskeletal: gait normal, strength equal bilaterally - Psychiatric Psychiatric: appropriate mood/affect, intact judgment & insight - Neurologic Neurologic: CNII-XII intact, moves all extremities Plan Follow up with: CESAR ALVAREZ [Primary Care Provider] - 3-5 Days Forms: Warfarin Discharge Instruction Prescriptions: Furosemide [Lasix] 20 mg PO QDAY #30 tablet Potassium Chloride [K-Dur] 20 meq PO QDAY #30 tablet
[2018-05-08] MEDS ORDERED: K-DUR PO SCH (10:00)
== END 2018-05-07 15:46 | disposition home or self-care (01) | DRG 308 ==
LOC: ED 21:10 → 4A 23:56
PROVIDERS: ADMIT Internal Medicine; ATTEND Internal Medicine
DX: I48.91 Unspecified atrial fibrillation (principal); I50.23 Acute on chronic systolic (congestive) heart failure; I11.0 Hypertensive heart disease with heart failure; E11.40 Type 2 diabetes mellitus with diabetic neuropathy, unspecified; I27.20 Pulmonary hypertension, unspecified; I08.1 Rheumatic disorders of both mitral and tricuspid valves; Z86.711 Personal history of pulmonary embolism; Z79.01 Long term (current) use of anticoagulants; Z86.718 Personal history of other venous thrombosis and embolism; Z82.49 Family history of ischemic heart disease and other diseases of the circulatory system; Z86.73 Personal history of transient ischemic attack (TIA), and cerebral infarction without residual deficits; Z79.84 Long term (current) use of oral hypoglycemic drugs
CPT/HCPCS: 36415; 71045; 80048; 82550; 82553; 83880; 84484; 85025; 85610; 85730; 93005; 93010; 93306; G0378; J0360; J1940

== ENCOUNTER 2018-07-30 03:08 | Emergency (ER) | payer MEDICARE ==
--- NOTE | 2018-07-30 03:47 | Emergency Department Report ---
ED Palpitations HPI - General Chief Complaint: Arrhythmia/Palpitations Stated Complaint: A FIB COMPLICATIONS Time Seen by Provider: 07/30/18 03:21 Source: patient, old records reviewed Mode of arrival: Stretcher Limitations: No Limitations - History of Present Illness Initial Comments: 68-year-old male with a past medical history A. fib on Coumadin, CHF, diabetes, mild hypertension, DVT and previous pulmonary embolism presents also complains of palpitations since 1 AM. Patient has had intermittent palpitations with heart irregularity of the last 3 days they would improve after taking his antidysrhythmic medication. Tonight he did not have any improvement in symptoms are worse with activity. Patient also was feeling lightheaded. Patient also states last week he had pain of his right hand secondary to gout attack and didn't have any pain meds and feels like he is about to have again attack in his left knee. He states his community service specialist with the [facility] but he hasn't had an appointment with them in 6-8 months. Patient was admitted here in April with Mounika. sheba with RVR and CHF exacerbation. - Related Data Home Medications Medication Instructions Recorded Confirmed Last Taken Lisinopril 20 mg PO DAILY 05/05/18 07/30/18 1 Day Ago ~07/29/18 Warfarin [Coumadin] 10 mg PO QDAY 05/05/18 07/30/18 07/28/18 Previous Rx's Medication Instructions Recorded Last Taken Type Carvedilol [Coreg] 25 mg PO BID #60 tablet 12/21/16 1 Day Ago Rx ~07/29/18 Furosemide [Lasix] 20 mg PO QDAY #30 tablet 05/07/18 1 Day Ago Rx ~07/29/18 Potassium Chloride [K-Dur] 20 meq PO QDAY #30 tablet 05/07/18 2 Days Ago Rx ~07/28/18 traMADol [Ultram 50 MG tab] 50 mg PO Q6HR PRN #20 tablet 07/30/18 Unknown Rx Allergies Allergy/AdvReac Type Severity Reaction Status Date / Time No Known Allergies Allergy Verified 05/05/18 23:54 ED Review of Systems ROS: Stated complaint: A FIB COMPLICATIONS Other details as noted in HPI ED Past Medical Hx - Past Medical History Previous Medical History?: Yes Hx Hypertension: Yes Hx Diabetes: Yes Hx Deep Vein Thrombosis: Yes (right leg) Hx Pulmonary Embolism: Yes Hx COPD: Yes Additional medical history: neuropathy. a-fib - Surgical History Past Surgical History?: Yes Additional Surgical History: neck and back surgery 2012 - Social History Smoking Status: Never Smoker Substance Use Type: None - Medications Home Medications: Home Medications Medication Instructions Recorded Confirmed Last Taken Type Carvedilol [Coreg] 25 mg PO BID #60 tablet 12/21/16 05/05/18 1 Day Ago Rx ~07/29/18 Lisinopril 20 mg PO DAILY 05/05/18 07/30/18 1 Day Ago History ~07/29/18 Warfarin [Coumadin] 10 mg PO QDAY 05/05/18 07/30/18 07/28/18 History Furosemide [Lasix] 20 mg PO QDAY #30 tablet 05/07/18 07/30/18 1 Day Ago Rx ~07/29/18 Potassium Chloride [K-Dur] 20 meq PO QDAY #30 tablet 05/07/18 07/30/18 2 Days Ago Rx ~07/28/18 traMADol [Ultram 50 MG tab] 50 mg PO Q6HR PRN #20 tablet 07/30/18 Unknown Rx ED Physical Exam - General Limitations: No Limitations - Other Other exam information: General: No limitations, patient is alert in no acute distress Head exam: Atraumatic, normocephalic Eyes exam: Normal appearance ENT: Moist mucous membrane Neck exam: Normal inspection, full range of motion, no meningismus nontender Respiratory exam: Clear to auscultation bilateral, no wheezes, rales, crackles Cardiovascular: Irregularly irregular rhythm Abdomen: Soft, nondistended, and nontender, with normal bowel sounds, no rebound, or guarding Extremity: Full range of motion normal inspection no deformity, tenderness or edema. Left anterior knee tenderness without edema, warmth or erythema Back: Normal Inspection, full range of motion, no tenderness Neurologic: Alert, oriented x3, cranial nerves intact, no motor or sensory deficit Psychiatric: normal affect, normal mood Skin: Warm, dry, intact ED Course Vital Signs 07/30/18 07/30/18 07/30/18 03:28 03:30 03:45 Temperature 98.3 F Pulse Rate 88 88 88 Respiratory 15 15 18 Rate Blood Pressure 153/100 149/98 145/95 O2 Sat by Pulse 100 98 98 Oximetry 07/30/18 07/30/18 04:03 04:15 Temperature Pulse Rate 81 Respiratory 15 18 Rate Blood Pressure 146/77 O2 Sat by Pulse 99 98 Oximetry - Consultations Consultation #1: 07/30/18 05:08 case d/w DR Greenfield ([facility]), rec outpt f/u ED Medical Decision Making - Lab Data Result diagrams: 07/30/18 03:32 07/30/18 03:32 Lab Results 07/30/18 07/30/18 07/30/18 Range/Units 03:32 03:32 03:32 WBC 5.7 (4.5-11.0) K/mm3 RBC 4.22 (3.65-5.03) M/mm3 Hgb 10.0 L (11.8-15.2) gm/dl Hct 32.0 L (35.5-45.6) % MCV 76 L (84-94) fl MCH 24 L (28-32) pg MCHC 31 L (32-34) % RDW 19.0 H (13.2-15.2) % Plt Count 227 (140-440) K/mm3 Lymph % (Auto) 19.9 (13.4-35.0) % [place] % (Auto) 7.5 H (0.0-7.3) % Eos % (Auto) 3.3 (0.0-4.3) % Baso % (Auto) 0.9 (0.0-1.8) % Lymph # 1.1 L (1.2-5.4) K/mm3 [place] # 0.4 (0.0-0.8) K/mm3 Eos # 0.2 (0.0-0.4) K/mm3 Baso # 0.1 (0.0-0.1) K/mm3 Seg Neutrophils % 68.4 (40.0-70.0) % Seg Neutrophils # 3.9 (1.8-7.7) K/mm3 PT 16.4 H (12.2-14.9) Sec. INR 1.24 H (0.87-1.13) APTT 32.0 (24.2-36.6) Sec. Sodium 141 (137-145) mmol/L Potassium 4.5 (3.6-5.0) mmol/L Chloride 104.5 (98-107) mmol/L Carbon Dioxide 26 (22-30) mmol/L Anion Gap 15 mmol/L BUN 11 (9-20) mg/dL Creatinine 1.5 (0.8-1.5) mg/dL Estimated GFR 56 ml/min BUN/Creatinine Ratio 7 % Glucose 105 H (75-100) mg/dL Calcium 8.9 (8.4-10.2) mg/dL Magnesium (1.7-2.3) mg/dL Troponin T < 0.010 (0.00-0.029) ng/mL TSH (0.270-4.200) mlU/mL Free T4 (0.76-1.46) ng/dL 07/30/18 07/30/18 Range/Units 03:32 03:32 WBC (4.5-11.0) K/mm3 RBC (3.65-5.03) M/mm3 Hgb (11.8-15.2) gm/dl Hct (35.5-45.6) % MCV (84-94) fl MCH (28-32) pg MCHC (32-34) % RDW (13.2-15.2) % Plt Count (140-440) K/mm3 Lymph % (Auto) (13.4-35.0) % [place] % (Auto) (0.0-7.3) % Eos % (Auto) (0.0-4.3) % Baso % (Auto) (0.0-1.8) % Lymph # (1.2-5.4) K/mm3 [place] # (0.0-0.8) K/mm3 Eos # (0.0-0.4) K/mm3 Baso # (0.0-0.1) K/mm3 Seg Neutrophils % (40.0-70.0) % Seg Neutrophils # (1.8-7.7) K/mm3 PT (12.2-14.9) Sec. INR (0.87-1.13) APTT (24.2-36.6) Sec. Sodium (137-145) mmol/L Potassium (3.6-5.0) mmol/L Chloride (98-107) mmol/L Carbon Dioxide (22-30) mmol/L Anion Gap mmol/L BUN (9-20) mg/dL Creatinine (0.8-1.5) mg/dL Estimated GFR ml/min BUN/Creatinine Ratio % Glucose (75-100) mg/dL Calcium (8.4-10.2) mg/dL Magnesium 1.90 (1.7-2.3) mg/dL Troponin T (0.00-0.029) ng/mL TSH 1.110 (0.270-4.200) mlU/mL Free T4 1.29 (0.76-1.46) ng/dL - EKG Data -: EKG Interpreted by Me (atrial fibrillation rate 80) EKG shows normal: axis (qrs 34), QRS complexes (qrsd 105), ST-T waves (no stemi/t inv) - Radiology Data Radiology results: report reviewed PROCEDURE: XR CHEST 1V AP TECHNIQUE: A portable upright view the chest was obtained. HISTORY: palpitations COMPARISONS: 05/05/2018 FINDINGS: The heart is moderately enlarged. There is no evidence of congestion or infiltrate. Pleural fluid is not seen. The bones and soft tissues do not show any acute changes. IM PRESSION: Cardiomegaly. No acute cardiopulmonary process.. - Medical Decision Making afib rate controlled rate 80's-high 90's in ed pt states he is complaint with all meds but inr is subtherapeutic. When patient was confronted about subtherapeutic INR he states that he actually discontinued the medication for procedure last Sunday. He also states that his INR has been supratherapeutic last 2 weeks. He is supposed to take his Coumadin Sunday through Sunday and take Sunday and Sunday off. He was planning on starting his medication tomorrow (sun). Patient given subcutaneous Lovenox in a ED attending told to restart his Coumadin today (). He states the pharmacist is managing his Coumadin/INR since his primary care doctor retired March and he has not [facility] a [facility] in 6-8 months. pt encourged to comply with coumadin and coumadin diet stressed f/u is necessary pt requested pain meds for "impending gout attack" in left knee. mild tenderness without warmth, swelling, or erythema pt c/o gas in abd with nausea, nontender abd, maalox and zofran ordered plan to d/c with card f/u for chronic rate controlled afib, - Differential Diagnosis afib rvr, mi, electrolyte abnormality, thyroid dz, noncompliance Critical Care Time: No Critical care attestation.: If time is entered above; I have spent that time in minutes in the direct care of this critically ill patient, excluding procedure time. ED Disposition Clinical Impression: HTN (hypertension), Chronic atrial fibrillation, History of DVT (deep vein thrombosis), History of pulmonary embolism, Subtherapeutic international normalized ratio (INR), On Coumadin for atrial fibrillation, Left anterior knee pain Disposition: DC/TX-65 PSY HOSP/PSY UNIT Is pt being admited?: No Does the pt Need Aspirin: No Condition: Stable Instructions: Atrial Fibrillation (ED), Warfarin (By mouth), Acute Gouty Arthritis (ED) Additional Instructions: Take the medication as prescribed. Restart your Coumadin today. Follow up with your doctor or the clinic/doctor provided. Return if symptoms worsen as indicated by your discharge instructions Prescriptions: traMADol [Ultram 50 MG tab] 50 mg PO Q6HR PRN #20 tablet PRN Reason: Pain Referrals: PRIMARY CARE, [Primary Care Provider] - 3-5 Days RADHA SMALLS MD [Staff Physician] - 3-5 Days (primary care doctor ) BAL GREENFIELD MD [Staff Physician] - 2-3 Days ([employer] Specialist) Time of Disposition: 05:26
[2018-07-30 03:52] LABS: Basophils # (Auto) 0.1 K/mm3 (0.0-0.1); Basophils % (Auto) 0.9 % (0.0-1.8); Eosinophils # (Auto) 0.2 K/mm3 (0.0-0.4); Eosinophils % (Auto) 3.3 % (0.0-4.3); Lymphocytes # (Auto) 1.1 K/mm3 (1.2-5.4); Lymphocytes % (Auto) 19.9 % (13.4-35.0); Mean Corpuscular HGB Conc 31 % (32-34); Mean Corpuscular Volume 76 fl (84-94); Monocytes # (Auto) 0.4 K/mm3 (0.0-0.8); Monocytes % (Auto) 7.5 % (0.0-7.3); Platelet Count 227 K/mm3 (140-440); Red Blood Count 4.22 M/mm3 (3.65-5.03)
[2018-07-30 04:01] LABS: INR 1.24 (0.87-1.13)
--- NOTE | 2018-07-30 04:04 | XRay Report ---
PROCEDURE: XR CHEST 1V AP TECHNIQUE: A portable upright view the chest was obtained. HISTORY: palpitations COMPARISONS: 05/05/2018 FINDINGS: The heart is moderately enlarged. There is no evidence of congestion or infiltrate. Pleural fluid is not seen. The bones and soft tissues do not show any acute changes. IMPRESSION: Cardiomegaly. No acute cardiopulmonary process.. This document is electronically signed by John Reynoso MD., July 30 2018 04:02:40 AM ET
[2018-07-30 04:16] LABS: BUN/Creatinine Ratio 7; Blood Urea Nitrogen 11 mg/dL (9-20); Calcium 8.9 mg/dL (8.4-10.2); Hemolysis Index 3
[2018-07-30 04:26] LABS: Free T4 (Free Thyroxine) 1.29 ng/dL (0.76-1.46)
[2018-07-30] MEDS ORDERED: LOVENOX SUB-Q ONE (04:59)
[2018-07-30] MEDS ORDERED: ALUM-MAG HYDROX-SIMETH 200-200-20MG/5ML PO ONE (05:11)
[2018-07-30] MEDS ORDERED: ZOFRAN IV ONE (05:11)
[2018-07-30 20:11] VITALS: BP 139/88
== END 2018-07-30 06:36 ==
LOC: ED 03:08
DX: I11.0 Hypertensive heart disease with heart failure (principal); I50.9 Heart failure, unspecified; I48.2 Chronic atrial fibrillation; R79.1 Abnormal coagulation profile; Z86.718 Personal history of other venous thrombosis and embolism; M25.562 Pain in left knee; E11.40 Type 2 diabetes mellitus with diabetic neuropathy, unspecified; J44.9 Chronic obstructive pulmonary disease, unspecified; Z79.01 Long term (current) use of anticoagulants
CPT/HCPCS: 36415; 71045; 80048; 83735; 84439; 84443; 84484; 85025; 85610; 85730; 93005; 93010; 96372; 96374; 99285; J1650; J2405

== ENCOUNTER 2018-09-05 22:34 | Emergency (ER) | payer MEDICARE ==
[2018-09-05] MEDS ORDERED: ANTIVERT PO ONE (23:13)
[2018-09-05 23:27] LABS: Basophils # (Auto) 0.1 K/mm3 (0.0-0.1); Basophils % (Auto) 1.2 % (0.0-1.8); Eosinophils # (Auto) 0.2 K/mm3 (0.0-0.4); Eosinophils % (Auto) 5.3 % (0.0-4.3); Hematocrit 32.9 % (35.5-45.6); Hemoglobin 10.5 gm/dl (11.8-15.2); Lymphocytes # (Auto) 1.5 K/mm3 (1.2-5.4); Lymphocytes % (Auto) 35.4 % (13.4-35.0); Mean Corpuscular HGB Conc 32 % (32-34); Mean Corpuscular Volume 74 fl (84-94); Monocytes # (Auto) 0.4 K/mm3 (0.0-0.8); Monocytes % (Auto) 8.9 % (0.0-7.3); Platelet Count 163 K/mm3 (140-440); Red Blood Count 4.47 M/mm3 (3.65-5.03); Red Cell Distribution Width 18.5 % (13.2-15.2)
[2018-09-05 23:37] LABS: INR 1.26 (0.87-1.13)
--- NOTE | 2018-09-06 00:01 | XRay Report ---
PROCEDURE: XR CHEST 1V AP TECHNIQUE: Chest radiograph single view. HISTORY: Lightheadedness/Dizziness COMPARISONS: July 30, 2018 . FINDINGS: Heart: The heart size is slightly pronounced but stable. Mediastinum/Vessels: Normal. Lungs/Pleural space: Normal. Bony thorax: No acute osseous abnormality. Life support devices: None. IMPRESSION: No evidence of an acute cardiopulmonary process. Mild stable cardiomegaly.. This document is electronically signed by Joy Lopez DO., Sep 05 2018 11:59:36 PM ET
[2018-09-06 00:09] LABS: Alanine Aminotransferase 8 units/L (7-56); Albumin 3.5 g/dL (3.9-5); BUN/Creatinine Ratio 10; Blood Urea Nitrogen 15 mg/dL (9-20); Calcium 9.2 mg/dL (8.4-10.2); Hemolysis Index 7
[2018-09-06 00:11] LABS: Creatine Kinase MB < 1.0 ng/mL (0.0-4.0)
--- NOTE | 2018-09-06 02:21 | Cat Scan Report ---
PROCEDURE: CT HEAD/BRAIN WO CON TECHNIQUE: Computerized tomography of the head was performed without contrast material. HISTORY: Lightheadedness/Dizziness COMPARISONS: None . FINDINGS: Skull and scalp: Normal . Paranasal sinuses: Normal . Ventricles and subarachnoid spaces: Normal . Cerebrum: No evidence of hemorrhage, acute infarction or mass . Cerebellum and brainstem: No evidence of hemorrhage, acute infarction or mass . Vasculature: Normal . Other: None . ASPECTS: 10 IMPRESSION: Normal Examination . This document is electronically signed by Joy Lopez DO., Sep 06 2018 02:19:46 AM ET
--- NOTE | 2018-09-06 02:59 | Emergency Department Report ---
ED Dizziness HPI - General Chief Complaint: Dizziness Stated Complaint: DIZZINESS Time Seen by Provider: 09/05/18 23:05 Source: patient, EMS Mode of arrival: Ambulatory Limitations: Physical Limitation - History of Present Illness Initial Comments: The patient is a 68 y.o -[place] male who presents to the E.R. complaining of dizziness that began 2 hrs ago while at rest. Symptoms have been intermittent since onset and pt rates them as severe in severity. Patient reports the symptoms are located in head and describes the quality as room spini ng, and head spinning. Symptoms associated with nausea, but denies any fever, vomiting, hematemesis, melena or hematochezia. Symptoms are improved with nothing and exacerbated by movement. Patient reports history of similar symptoms and prior dx of vertigo. He has also a h/o Atrial Fibrillation and states compliance with medications. Onset/Timin -: days(s) - Related Data Home Medications Medication Instructions Recorded Confirmed Last Taken Acetaminophen [Acetaminophen TAB] 500 mg PO TID PRN 07/30/18 09/24/18 Unknown Diclofenac 1% [Diclofenac 1% 2 gm TP QID 07/30/18 09/24/18 Unknown topical gel] Insulin Aspart [NovoLOG 100 5 units SUB-Q TIDAC 07/30/18 09/24/18 Unknown UNITS/ML VIAL] Insulin Glargine [Lantus VIAL] 10 units SUB-Q QHS 07/30/18 09/24/18 Unknown Ipratropium/Albuterol Sulfate 1 puff IH BID 07/30/18 09/24/18 Unknown [Combivent Respimat] Omeprazole 20 mg PO QDAY 07/30/18 09/24/18 Unknown Pregabalin [Lyrica] 50 mg PO BID 07/30/18 09/24/18 Unknown Sildenafil Citrate [Viagra] 100 mg PO PRN PRN 07/30/18 09/24/18 Unknown Tamsulosin [Flomax] 0.4 mg PO QDAY 07/30/18 09/24/18 Unknown Urea [Ureacin-20 CREAM] 1 applic TP DAILY 07/30/18 09/24/18 Unknown Previous Rx's Medication Instructions Recorded Last Taken Type Apixaban [Eliquis] 5 mg PO BID #60 tablet 08/04/18 Unknown Rx Carvedilol [Coreg] 25 mg PO BID tablet 08/04/18 Unknown Rx traMADol [Ultram 50 MG tab] 50 mg PO Q6HR PRN #20 tablet 08/04/18 Unknown Rx Meclizine HCl [Meclizine CHEW] 25 mg PO Q8HR PRN #30 tab 09/06/18 Unknown Rx Colchicine 0.6 mg PO QDAY #30 capsule 09/28/18 Unknown Rx Pantoprazole [Protonix TAB] 40 mg PO DAILY #30 tablet 09/28/18 Unknown Rx oxyCODONE /ACETAMINOPHEN [Percocet 1 tab PO Q6HR PRN #14 tablet 09/28/18 Unknown Rx 5/325] predniSONE [Deltasone] 20 mg PO QDAY #7 tablet 09/28/18 Unknown Rx Allergies Allergy/AdvReac Type Severity Reaction Status Date / Time No Known Allergies Allergy Verified 05/05/18 23:54 ED Review of Systems ROS: Stated complaint: DIZZINESS Other details as noted in HPI Comment: All other systems reviewed and negative ED Past Medical Hx - Past Medical History Previous Medical History?: Yes Hx Hypertension: Yes Hx Congestive Heart Failure: Yes Hx Diabetes: Yes Hx Deep Vein Thrombosis: Yes (both legs) Hx Pulmonary Embolism: Yes (william lungs) Hx Kidney Stones: Yes Hx COPD: Yes Additional medical history: neuropathy. a-fib - Surgical History Past Surgical History?: Yes Additional Surgical History: neck and back surgery 2012 - Social History Smoking Status: Former Smoker Substance Use Type: None - Medications Home Medications: Home Medications Medication Instructions Recorded Confirmed Last Taken Type Acetaminophen [Acetaminophen TAB] 500 mg PO TID PRN 07/30/18 09/24/18 Unknown History Diclofenac 1% [Diclofenac 1% 2 gm TP QID 07/30/18 09/24/18 Unknown History topical gel] Insulin Aspart [NovoLOG 100 5 units SUB-Q TIDAC 07/30/18 09/24/18 Unknown History UNITS/ML VIAL] Insulin Glargine [Lantus VIAL] 10 units SUB-Q QHS 07/30/18 09/24/18 Unknown History Ipratropium/Albuterol Sulfate 1 puff IH BID 07/30/18 09/24/18 Unknown History [Combivent Respimat] Omeprazole 20 mg PO QDAY 07/30/18 09/24/18 Unknown History Pregabalin [Lyrica] 50 mg PO BID 07/30/18 09/24/18 Unknown History Sildenafil Citrate [Viagra] 100 mg PO PRN PRN 07/30/18 09/24/18 Unknown History Tamsulosin [Flomax] 0.4 mg PO QDAY 07/30/18 09/24/18 Unknown History Urea [Ureacin-20 CREAM] 1 applic TP DAILY 07/30/18 09/24/18 Unknown History Apixaban [Eliquis] 5 mg PO BID #60 tablet 08/04/18 09/24/18 Unknown Rx Carvedilol [Coreg] 25 mg PO BID tablet 08/04/18 09/24/18 Unknown Rx traMADol [Ultram 50 MG tab] 50 mg PO Q6HR PRN #20 tablet 08/04/18 09/24/18 Unknown Rx Meclizine HCl [Meclizine CHEW] 25 mg PO Q8HR PRN #30 tab 09/06/18 09/24/18 Unknown Rx Colchicine 0.6 mg PO QDAY #30 capsule 09/28/18 Unknown Rx Pantoprazole [Protonix TAB] 40 mg PO DAILY #30 tablet 09/28/18 Unknown Rx oxyCODONE /ACETAMINOPHEN [Percocet 1 tab PO Q6HR PRN #14 tablet 09/28/18 Unknown Rx 5/325] predniSONE [Deltasone] 20 mg PO QDAY #7 tablet 09/28/18 Unknown Rx ED Physical Exam - General Limitations: No Limitations, Physical Limitation General appearance: alert, in no apparent distress - Head Head exam: Present: atraumatic, normocephalic - Eye Eye exam: Present: normal appearance - ENT ENT exam: Present: normal exam, normal orophraynx - Neck Neck exam: Present: normal inspection - Respiratory Respiratory exam: Present: normal lung sounds bilaterally - Cardiovascular Cardiovascular Exam: Present: regular rate, normal rhythm - GI/Abdominal GI/Abdominal exam: Present: soft, normal bowel sounds - Rectal Rectal exam: Present: deferred - Neurological Exam Neurological exam: Present: alert, oriented X3, CN II-XII intact ED Course Vital Signs 09/05/18 09/05/18 09/05/18 23:02 23:16 23:26 Pulse Rate 93 H 89 Respiratory 14 22 Rate Blood Pressure 147/89 147/89 O2 Sat by Pulse 99 100 99 Oximetry 09/06/18 09/06/18 09/06/18 00:30 00:34 01:00 Pulse Rate 105 H 88 Respiratory 15 16 25 H Rate Blood Pressure 147/89 147/89 O2 Sat by Pulse 100 99 98 Oximetry 09/06/18 09/06/18 02:00 03:00 Pulse Rate 95 H 92 H Respiratory 24 18 Rate Blood Pressure 143/96 151/97 O2 Sat by Pulse 99 98 Oximetry ED Medical Decision Making - Lab Data Result diagrams: 09/05/18 23:15 09/05/18 23:15 Critical care attestation.: If time is entered above; I have spent that time in minutes in the direct care of this critically ill patient, excluding procedure time. ED Disposition Clinical Impression: Dizziness Disposition: DC-01 TO HOME OR SELFCARE Is pt being admited?: No Does the pt Need Aspirin: No Condition: Stable Instructions: Vertigo (ED) Prescriptions: Meclizine HCl [Meclizine CHEW] 25 mg PO Q8HR PRN #30 tab PRN Reason: Vertigo Referrals: CESAR ALVAREZ MD [Primary Care Provider] - 3-5 Days
[2018-09-06 03:10] VITALS: BP 151/97
[2018-09-06] MEDS ORDERED: ZOFRAN ODT PO ONE (03:22)
[2018-09-06 03:56] LABS: Bilirubin,Urine NEG (Negative); Blood,Urine NEG (Negative); Color,Urine Straw (Yellow); Mucus,Urine FEW /HPF; Protein,Urine <15 mg/dL mg/dL (Negative); Urobilinogen,Urine < 2.0 mg/dL (<2.0); WBC,Urine < 1.0 /HPF (0.0-6.0)
[2018-09-06 04:04] LABS: Amphetamine Screen,Urine PRESUMPTIVE NEGATIVE; Benzodiazepines Screen,Urine PRESUMPTIVE NEGATIVE; Cannabinoid Screen,Urine PRESUMPTIVE NEGATIVE; Cocaine Screen,Urine PRESUMPTIVE NEGATIVE; Methadone Screen,Urine PRESUMPTIVE NEGATIVE; Opiate Screen,Urine PRESUMPTIVE NEGATIVE
== END 2018-09-06 04:08 | disposition home or self-care (01) ==
LOC: ED 22:34
DX: R42 Dizziness and giddiness (principal); R11.0 Nausea; I11.0 Hypertensive heart disease with heart failure; I50.9 Heart failure, unspecified; E11.9 Type 2 diabetes mellitus without complications; J44.9 Chronic obstructive pulmonary disease, unspecified; I48.91 Unspecified atrial fibrillation
CPT/HCPCS: 36415; 70450; 71045; 80053; 80307; 81001; 82550; 82553; 84484; 85025; 85610; 93005; 93010

== ENCOUNTER 2018-09-22 10:17 | Inpatient (IN) | payer MEDICARE ==
[2018-09-22] MEDS ORDERED: NACL 0.9% 1000 ML 1,000 ML IV ONE (10:56)
[2018-09-22] MEDS ORDERED: LOPRESSOR IV ONE (10:59)
[2018-09-22] MEDS ORDERED: PROTONIX IV ONE (10:59)
--- NOTE | 2018-09-22 11:04 | Emergency Department Report ---
ED GI Bleed HPI - General Chief complaint: GI Bleed Stated complaint: BLOOD STOOL Time Seen by Provider: 09/22/18 10:48 Source: patient, EMS Mode of arrival: Stretcher Limitations: No Limitations - History of Present Illness Initial comments: Patient is 68 years old male with history of congestive heart failure, atrial fibrillation on Elliquis, history of bilateral PE, diabetes and hypertension. Patient presented to the ER complaining of passing black stool for the last 3 days. Patient stated that he took laxative one week ago and since then he has been having black stool. Patient To Be Tachycardic at 114 and Complaining of Dizziness. Patient Denied Any Chest Pain or Shortness of Breath. MD complaint: melena -: days(s) Severity scale (0 -10): 0 - Related Data Home Medications Medication Instructions Recorded Confirmed Last Taken Acetaminophen [Acetaminophen TAB] 500 mg PO TID PRN 07/30/18 07/30/18 Unknown Diclofenac 1% [Diclofenac 1% 2 gm TP QID 07/30/18 07/30/18 Unknown topical gel] Insulin Aspart [Novolog] 5 units SUB-Q TIDAC 07/30/18 07/30/18 Unknown Insulin Glargine [Lantus VIAL] 10 units SUB-Q QHS 07/30/18 07/30/18 Unknown Ipratropium/Albuterol Sulfate 1 puff IH BID 07/30/18 07/30/18 Unknown [Combivent Respimat] Omeprazole 20 mg PO QDAY 07/30/18 07/30/18 Unknown Pregabalin [Lyrica] 50 mg PO BID 07/30/18 07/30/18 Unknown Sildenafil Citrate [Viagra] 100 mg PO QDAY PRN 07/30/18 07/30/18 Unknown Tamsulosin [Flomax] 0.4 mg PO QDAY 07/30/18 07/30/18 Unknown Urea [Ureacin-20 CREAM] 1 applic TP DAILY 07/30/18 07/30/18 Unknown Previous Rx's Medication Instructions Recorded Last Taken Type Apixaban [Eliquis] 5 mg PO BID #60 tablet 08/04/18 Unknown Rx Carvedilol [Coreg] 25 mg PO BID tablet 08/04/18 Unknown Rx predniSONE [Deltasone] 20 mg PO QDAY #3 tablet 08/04/18 Unknown Rx traMADol [Ultram 50 MG tab] 50 mg PO Q6HR PRN #20 tablet 08/04/18 Unknown Rx Meclizine HCl [Meclizine CHEW] 25 mg PO Q8HR PRN #30 tab 09/06/18 Unknown Rx Allergies Allergy/AdvReac Type Severity Reaction Status Date / Time No Known Allergies Allergy Verified 05/05/18 23:54 ED Review of Systems ROS: Stated complaint: BLOOD STOOL Other details as noted in HPI Comment: All other systems reviewed and negative Constitutional: denies: chills, fever Respiratory: denies: cough, orthopnea, shortness of breath, SOB with exertion, SOB at rest, wheezing Cardiovascular: palpitations. denies: chest pain Gastrointestinal: melena. denies: abdominal pain, nausea, vomiting, diarrhea, constipation, hematemesis, hematochezia Genitourinary: denies: dysuria, hematuria Musculoskeletal: denies: back pain Neurological: denies: headache, weakness, numbness, paresthesias, confusion, abnormal gait ED Past Medical Hx - Past Medical History Hx Hypertension: Yes Hx Congestive Heart Failure: Yes Hx Diabetes: Yes Hx Deep Vein Thrombosis: Yes (both legs) Hx Pulmonary Embolism: Yes (william lungs) Hx Kidney Stones: Yes Hx COPD: Yes Additional medical history: neuropathy. a-fib - Surgical History Additional Surgical History: neck and back surgery 2012 - Social History Smoking Status: Former Smoker Substance Use Type: None - Medications Home Medications: Home Medications Medication Instructions Recorded Confirmed Last Taken Type Acetaminophen [Acetaminophen TAB] 500 mg PO TID PRN 07/30/18 07/30/18 Unknown History Diclofenac 1% [Diclofenac 1% 2 gm TP QID 07/30/18 07/30/18 Unknown History topical gel] Insulin Aspart [Novolog] 5 units SUB-Q TIDAC 07/30/18 07/30/18 Unknown History Insulin Glargine [Lantus VIAL] 10 units SUB-Q QHS 07/30/18 07/30/18 Unknown History Ipratropium/Albuterol Sulfate 1 puff IH BID 07/30/18 07/30/18 Unknown History [Combivent Respimat] Omeprazole 20 mg PO QDAY 07/30/18 07/30/18 Unknown History Pregabalin [Lyrica] 50 mg PO BID 07/30/18 07/30/18 Unknown History Sildenafil Citrate [Viagra] 100 mg PO QDAY PRN 07/30/18 07/30/18 Unknown History Tamsulosin [Flomax] 0.4 mg PO QDAY 07/30/18 07/30/18 Unknown History Urea [Ureacin-20 CREAM] 1 applic TP DAILY 07/30/18 07/30/18 Unknown History Apixaban [Eliquis] 5 mg PO BID #60 tablet 08/04/18 Unknown Rx Carvedilol [Coreg] 25 mg PO BID tablet 08/04/18 Unknown Rx predniSONE [Deltasone] 20 mg PO QDAY #3 tablet 08/04/18 Unknown Rx traMADol [Ultram 50 MG tab] 50 mg PO Q6HR PRN #20 tablet 08/04/18 Unknown Rx Meclizine HCl [Meclizine CHEW] 25 mg PO Q8HR PRN #30 tab 09/06/18 Unknown Rx ED Physical Exam - General Limitations: No Limitations General appearance: alert, in no apparent distress - Head Head exam: Present: atraumatic, normocephalic, normal inspection - Eye Eye exam: Present: normal appearance, PERRL - ENT ENT exam: Present: normal exam, normal orophraynx, mucous membranes moist - Neck Neck exam: Present: normal inspection, full ROM. Absent: tenderness, meningismus, lymphadenopathy, thyromegaly - Respiratory Respiratory exam: Present: normal lung sounds bilaterally - Cardiovascular Cardiovascular Exam: Present: tachycardia, irregular rhythm - GI/Abdominal GI/Abdominal exam: Present: soft, normal bowel sounds. Absent: distended, tenderness, guarding, rebound, rigid, organomegaly, mass, bruit, pulsatile mass, hernia - Rectal Rectal exam: Present: normal rectal tone, heme (+) stool, black stool, hemorrhoids. Absent: tenderness - Extremities Exam Extremities exam: Present: normal inspection, full ROM, normal capillary refill. Absent: pedal edema, calf tenderness - Back Exam Back exam: Present: normal inspection, full ROM. Absent: CVA tenderness (R), CVA tenderness (L), muscle spasm, paraspinal tenderness, vertebral tenderness - Neurological Exam Neurological exam: Present: alert, oriented X3, CN II-XII intact, normal gait, reflexes normal - Psychiatric Psychiatric exam: Present: normal mood - Skin Skin exam: Present: warm, intact, normal color ED Course Vital Signs 09/22/18 09/22/18 09/22/18 10:27 12:05 13:17 Temperature 98.3 F Pulse Rate 109 H 96 H 85 Respiratory 18 18 Rate Blood Pressure 150/86 Blood Pressure 161/89 144/98 [Left] O2 Sat by Pulse 99 97 Oximetry - Consultations Consultation #1: 09/22/18 13:25 I discussed the patient with TANGELA Navarrete, he advised to admit the patient to the hospital for possible upper endoscopy. He advised to hold Elliquis for now. 09/22/18 13:32 ED Medical Decision Making - Lab Data Result diagrams: 09/22/18 10:37 09/22/18 12:31 - EKG Data -: EKG Interpreted by Me Rate: tachycardia - EKG Data 09/22/18 11:04 Atrial fibrillation with rapid ventricular response at a rate of 109b/m. - Medical Decision Making Patient is 68 years old male with history of congestive heart failure, atrial fibrillation on Elliquis, history of bilateral PE, diabetes and hypertension. Patient presented to the ER complaining of passing black stool for the last 3 days. Patient stated that he took laxative one week ago and since then he has been having black stool. Patient To Be Tachycardic at 114 and Complaining of Dizziness. Patient Denied Any Chest Pain or Shortness of Breath. Patient received normal saline 1 L, Lopressor 5 mg for his atrial fibrillation with RVR. Patient is 10.8. I discussed the patient is Dr. Freeman,from GI. I discussed the patient is Dr. Robison, he agreed to admit the patient to medical service. Critical Care Time: Yes Critical care time in (mins) excluding proc time.: 30 Critical care attestation.: If time is entered above; I have spent that time in minutes in the direct care of this critically ill patient, excluding procedure time. ED Disposition Clinical Impression: GI (gastrointestinal hemorrhage), Atrial fibrillation with RVR Disposition: OP ADMIT IP TO THIS HOSP Is pt being admited?: Yes Condition: Stable Referrals: CASSIE MON MD [Primary Care Provider] - 3-5 Days Forms: Accompanied Note
[2018-09-22 12:01] LABS: Basophils % (Auto) 0.6 % (0.0-1.8); Eosinophils # (Auto) 0.2 K/mm3 (0.0-0.4); Eosinophils % (Auto) 2.6 % (0.0-4.3); Hematocrit 34.3 % (35.5-45.6); Hemoglobin 10.8 gm/dl (11.8-15.2); Lymphocytes % (Auto) 16.5 % (13.4-35.0); Mean Corpuscular HGB Conc 32 % (32-34); Mean Corpuscular Volume 74 fl (84-94); Monocytes # (Auto) 0.5 K/mm3 (0.0-0.8); Monocytes % (Auto) 7.9 % (0.0-7.3); Platelet Count 169 K/mm3 (140-440); Red Blood Count 4.64 M/mm3 (3.65-5.03); Red Cell Distribution Width 19.1 % (13.2-15.2)
[2018-09-22 12:05] LABS: INR 1.13 (0.87-1.13)
[2018-09-22 12:06] LABS: Partial Thromboplastin Time 27.5 Sec. (24.2-36.6)
[2018-09-22 12:18] LABS: Hemolysis Index 417
[2018-09-22 12:27] LABS: BUN/Creatinine Ratio TNR; Bilirubin,Direct TNR mg/dL (0-0.2); Blood Urea Nitrogen TNR mg/dL (9-20); Calcium TNR mg/dL (8.4-10.2)
[2018-09-22 12:28] LABS: Alanine Aminotransferase TNR units/L (7-56); Albumin TNR g/dL (3.9-5)
[2018-09-22 13:07] LABS: Alanine Aminotransferase 6 units/L (7-56); Albumin 3.8 g/dL (3.9-5); BUN/Creatinine Ratio 13; Blood Urea Nitrogen 21 mg/dL (9-20); Calcium 8.9 mg/dL (8.4-10.2); Hemolysis Index 0
[2018-09-22 13:16] LABS: Bilirubin,Direct < 0.2 mg/dL (0-0.2)
[2018-09-22] MEDS: PROTONIX 80 MG in NACL 0.9% 100 ML IV SCH (13:17)
[2018-09-22] MEDS ORDERED: TYLENOL PO ONE (13:52)
--- NOTE | 2018-09-22 17:43 | Consultation ---
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 Here, he also complained of having black stool for the last 3 days and was found to have melena on physical exam. Because of this, he is being admitted for further evaluation. Patient denies abdominal pain nausea or vomiting. His bowel movements occur on a twice a day basis that he has been going only once a day for the last month or so. He denies nausea or vomiting. Patient denies weight loss. There's been no lightheadedness or dizziness. Patient is on our course for atrial fibrillation, and took his last dose yesterday evening. Of note, patient is not aware of a history of peptic ulcer disease, but he states that in 2014, he had some sort of an intestinal bleed while on Xarelto for which he had an upper endoscopy to stop it. Past History Past Medical History: atrial fib, COPD, diabetes, heart failure, pulmonary embolism (in 2018) Past Surgical History: No surgical history Social history: denies: smoking, alcohol abuse Family history: no significant family history Medications and Allergies Allergies Allergy/AdvReac Type Severity Reaction Status Date / Time No Known Allergies Allergy Verified 05/05/18 23:54 Home Medications Medication Instructions Recorded Confirmed Last Taken Type Acetaminophen [Acetaminophen TAB] 500 mg PO TID PRN 07/30/18 07/30/18 Unknown History Diclofenac 1% [Diclofenac 1% 2 gm TP QID 07/30/18 07/30/18 Unknown History topical gel] Insulin Aspart [Novolog] 5 units SUB-Q TIDAC 07/30/18 07/30/18 Unknown History Insulin Glargine [Lantus VIAL] 10 units SUB-Q QHS 07/30/18 07/30/18 Unknown History Ipratropium/Albuterol Sulfate 1 puff IH BID 07/30/18 07/30/18 Unknown History [Combivent Respimat] Omeprazole 20 mg PO QDAY 07/30/18 07/30/18 Unknown History Pregabalin [Lyrica] 50 mg PO BID 07/30/18 07/30/18 Unknown History Sildenafil Citrate [Viagra] 100 mg PO QDAY PRN 07/30/18 07/30/18 Unknown History Tamsulosin [Flomax] 0.4 mg PO QDAY 07/30/18 07/30/18 Unknown History Urea [Ureacin-20 CREAM] 1 applic TP DAILY 07/30/18 07/30/18 Unknown History Apixaban [Eliquis] 5 mg PO BID #60 tablet 08/04/18 Unknown Rx Carvedilol [Coreg] 25 mg PO BID tablet 08/04/18 Unknown Rx predniSONE [Deltasone] 20 mg PO QDAY #3 tablet 08/04/18 Unknown Rx traMADol [Ultram 50 MG tab] 50 mg PO Q6HR PRN #20 tablet 08/04/18 Unknown Rx Meclizine HCl [Meclizine CHEW] 25 mg PO Q8HR PRN #30 tab 09/06/18 Unknown Rx Active Meds: Active Medications Pantoprazole Sodium 80 mg/ (Sodium Chloride) 100 mls @ 10 mls/hr IV DIRECT JERRY Last Admin: 09/22/18 13:17 Dose: 8 mg/hr, 10 mls/hr Documented by: Review of Systems All systems: negative (as noted in HPI) Exam - Constitutional Vitals: Temp Pulse Resp BP Pulse Ox 97.7 F 96 H 18 146/90 98 09/22/18 15:46 09/22/18 15:46 09/22/18 15:46 09/22/18 15:46 09/22/18 15:46 General appearance: Present: no acute distress - EENT Eyes: Present: PERRL, EOM intact ENT: hearing intact - Neck Neck: Present: supple - Respiratory Respiratory effort: normal Respiratory: bilateral: CTA - Cardiovascular Rhythm: irregularly irregular Heart Sounds: Present: S1 & S2 - Extremities Extremities: No edema - Abdominal General gastrointestinal: Present: soft, non-tender, normal bowel sounds - Rectal Rectal Exam: other (Melena, and Heme+ per ER) Results - Labs CBC & Chem 7: 09/22/18 10:37 09/22/18 12:31 Labs: Abnormal lab results 09/22/18 09/22/18 09/22/18 Range/Units 10:37 10:37 12:31 Hgb 10.8 L (11.8-15.2) gm/dl Hct 34.3 L (35.5-45.6) % MCV 74 L (84-94) fl MCH 23 L (28-32) pg RDW 19.1 H (13.2-15.2) % [place] % (Auto) 7.9 H (0.0-7.3) % Lymph # 1.0 L (1.2-5.4) K/mm3 Seg Neutrophils % 72.4 H (40.0-70.0) % PT 15.2 H (12.2-14.9) Sec. BUN 21 H (9-20) mg/dL Creatinine 1.6 H (0.8-1.5) mg/dL Glucose 120 H (75-100) mg/dL ALT 6 L (7-56) units/L Albumin 3.8 L (3.9-5) g/dL Assessment and Plan 1. Melena - patient has findings consistent with melena on exam by emergency room physician. He is anemic with a hemoglobin of 10.8, but this is better than his usual hemoglobin of 10.5 in August of this year. He does have a history consistent with peptic ulcer disease in the past. - We will do endoscopy in 48 hours, after Eliquis is out of the system. We may do a more urgent endoscopy if patient develops evidence of active GI bleeding. - Meantime, place on twice a day PPI - Monitor H&H and transfuse as needed - Based on outcome of endoscopy, may consider whether or not a colonoscopy is appropriate.
--- NOTE | 2018-09-22 21:47 | History and Physical Report ---
History of Present Illness Date of examination: 09/22/18 Date of admission: 09/22/18 13:30 Chief complaint: Black stools for 3 days Lightheadedness for 3 days History of present illness: 68-year-old -[place] male with multiple medical problems including COPD insulin-dependent diabetes peripheral neuropathy BPH atrial fibrillation on ELIQUIS and hypertension comes in for passing black stools for the last 3 days. Patient attributes it to taking a laxative one week ago. Patient is also complaining of dizziness and lightheadedness especially while standing. He feels weak. Precipitating factors is nonsteroidal anti-inflammatory drugs and ELIQUIS. Past Medical History Hypertension: Yes Congestive Heart Failure: Yes Diabetes: Yes Deep Vein Thrombosis: Yes (both legs) Pulmonary Embolism: Yes (william lungs) Kidney Stones: Yes COPD: Yes Additional medical history: neuropathy. a-fib Surgical History Additional Surgical History: neck and back surgery 2011 Social History Smoking Status: Former Smoker Substance Use Type: None Medications Home Medications: Home Medications Medication Instructions Recorded Confirmed Last Taken Type Acetaminophen [Acetaminophen TAB] 500 mg PO TID PRN 07/30/18 07/30/18 Unknown History Diclofenac 1% [Diclofenac 1% 2 gm TP QID 07/30/18 07/30/18 Unknown History topical gel] Insulin Aspart [Novolog] 5 units SUB-Q TIDAC 07/30/18 07/30/18 Unknown History Insulin Glargine [Lantus VIAL] 10 units SUB-Q QHS 07/30/18 07/30/18 Unknown History Ipratropium/Albuterol Sulfate 1 puff IH BID 07/30/18 07/30/18 Unknown History [Combivent Respimat] Omeprazole 20 mg PO QDAY 07/30/18 07/30/18 Unknown History Pregabalin [Lyrica] 50 mg PO BID 07/30/18 07/30/18 Unknown History Sildenafil Citrate [Viagra] 100 mg PO QDAY PRN 07/30/18 07/30/18 Unknown History Tamsulosin [Flomax] 0.4 mg PO QDAY 07/30/18 07/30/18 Unknown History Urea [Ureacin-20 CREAM] 1 applic TP DAILY 07/30/18 07/30/18 Unknown History Apixaban [Eliquis] 5 mg PO BID #60 tablet 08/04/18 Unknown Rx Carvedilol [Coreg] 25 mg PO BID tablet 08/04/18 Unknown Rx predniSONE [Deltasone] 20 mg PO QDAY #3 tablet 08/04/18 Unknown Rx traMADol [Ultram 50 MG tab] 50 mg PO Q6HR PRN #20 tablet 08/04/18 Unknown Rx Meclizine HCl [Meclizine CHEW] 25 mg PO Q8HR PRN #30 tab 09/06/18 Unknown Rx Review of Systems ROS: Stated complaint: BLOOD STOOL Other details as noted in HPI Comment: All other systems reviewed and negative Constitutional: denies: chills, fever Respiratory: denies: cough, orthopnea, shortness of breath, SOB with exertion, SOB at rest, wheezing Cardiovascular: palpitations. denies: chest pain Gastrointestinal: melena. denies: abdominal pain, nausea, vomiting, diarrhea, constipation, hematemesis, hematochezia Genitourinary: denies: dysuria, hematuria Musculoskeletal: denies: back pain Neurological: denies: headache, weakness, numbness, paresthesias, confusion, abnormal gait Past History Past Medical History: atrial fib, COPD, diabetes, heart failure, pulmonary embolism (in 2018) Past Surgical History: No surgical history Social history: denies: smoking, alcohol abuse Family history: no significant family history Medications and Allergies Allergies Allergy/AdvReac Type Severity Reaction Status Date / Time No Known Allergies Allergy Verified 05/05/18 23:54 Home Medications Medication Instructions Recorded Confirmed Last Taken Type Acetaminophen [Acetaminophen TAB] 500 mg PO TID PRN 07/30/18 07/30/18 Unknown History Diclofenac 1% [Diclofenac 1% 2 gm TP QID 07/30/18 07/30/18 Unknown History topical gel] Insulin Aspart [Novolog] 5 units SUB-Q TIDAC 07/30/18 07/30/18 Unknown History Insulin Glargine [Lantus VIAL] 10 units SUB-Q QHS 07/30/18 07/30/18 Unknown Hi story Ipratropium/Albuterol Sulfate 1 puff IH BID 07/30/18 07/30/18 Unknown History [Combivent Respimat] Omeprazole 20 mg PO QDAY 07/30/18 07/30/18 Unknown History Pregabalin [Lyrica] 50 mg PO BID 07/30/18 07/30/18 Unknown History Sildenafil Citrate [Viagra] 100 mg PO QDAY PRN 07/30/18 07/30/18 Unknown History Tamsulosin [Flomax] 0.4 mg PO QDAY 07/30/18 07/30/18 Unknown History Urea [Ureacin-20 CREAM] 1 applic TP DAILY 07/30/18 07/30/18 Unknown History Apixaban [Eliquis] 5 mg PO BID #60 tablet 08/04/18 Unknown Rx Carvedilol [Coreg] 25 mg PO BID tablet 08/04/18 Unknown Rx predniSONE [Deltasone] 20 mg PO QDAY #3 tablet 08/04/18 Unknown Rx traMADol [Ultram 50 MG tab] 50 mg PO Q6HR PRN #20 tablet 08/04/18 Unknown Rx Meclizine HCl [Meclizine CHEW] 25 mg PO Q8HR PRN #30 tab 09/06/18 Unknown Rx Active Meds: Active Medications Pantoprazole Sodium 80 mg/ (Sodium Chloride) 100 mls @ 10 mls/hr IV DIRECT JERRY Last Admin: 09/22/18 13:17 Dose: 8 mg/hr, 10 mls/hr Documented by: Exam - Constitutional Vitals: Temp Pulse Resp BP Pulse Ox 97.7 F 96 H 18 146/90 98 09/22/18 15:46 09/22/18 15:46 09/22/18 15:46 09/22/18 15:46 09/22/18 15:46 General appearance: Present: no acute distress, well-nourished - EENT Eyes: Present: PERRL ENT: hearing intact, clear oral mucosa - Neck Neck: Present: supple, normal ROM - Respiratory Respiratory effort: normal Respiratory: bilateral: CTA - Cardiovascular Heart rate: 108 Rhythm: irregularly irregular Heart Sounds: Present: S1 & S2. Absent: rub, click - Extremities Extremities: no ischemia, pulses intact, pulses symmetrical, No edema Peripheral Pulses: within normal limits - Abdominal General gastrointestinal: Present: soft, non-tender, non-distended, normal bowel sounds Male genitourinary: Present: normal - Rectal Rectal Exam: stool dark (occult blood positive) - Integumentary Integumentary: Present: clear, warm, dry - Musculoskeletal Musculoskeletal: gait normal, strength equal bilaterally - Psychiatric Psychiatric: appropriate mood/affect, intact judgment & insight - Neurologic Neurologic: CNII-XII intact, moves all extremities - Allied Health Allied health notes reviewed: nursing, case management Results - Labs CBC & Chem 7: 09/22/18 10:37 09/22/18 12:31 Labs: Laboratory Last Values WBC 6.0 K/mm3 (4.5-11.0) 09/22/18 10:37 RBC 4.64 M/mm3 (3.65-5.03) 09/22/18 10:37 Hgb 10.8 gm/dl (11.8-15.2) L 09/22/18 10:37 Hct 34.3 % (35.5-45.6) L 09/22/18 10:37 MCV 74 fl (84-94) L 09/22/18 10:37 MCH 23 pg (28-32) L 09/22/18 10:37 MCHC 32 % (32-34) 09/22/18 10:37 RDW 19.1 % (13.2-15.2) H 09/22/18 10:37 Plt Count 169 K/mm3 (140-440) 09/22/18 10:37 Lymph % (Auto) 16.5 % (13.4-35.0) 09/22/18 10:37 [place] % (Auto) 7.9 % (0.0-7.3) H 09/22/18 10:37 Eos % (Auto) 2.6 % (0.0-4.3) 09/22/18 10:37 Baso % (Auto) 0.6 % (0.0-1.8) 09/22/18 10:37 Lymph # 1.0 K/mm3 (1.2-5.4) L 09/22/18 10:37 [place] # 0.5 K/mm3 (0.0-0.8) 09/22/18 10:37 Eos # 0.2 K/mm3 (0.0-0.4) 09/22/18 10:37 Baso # 0.0 K/mm3 (0.0-0.1) 09/22/18 10:37 Seg Neutrophils % 72.4 % (40.0-70.0) H 09/22/18 10:37 Seg Neutrophils # 4.3 K/mm3 (1.8-7.7) 09/22/18 10:37 PT 15.2 Sec. (12.2-14.9) H 09/22/18 10:37 INR 1.13 (0.87-1.13) 09/22/18 10:37 APTT 27.5 Sec. (24.2-36.6) 09/22/18 10:37 Sodium 145 mmol/L (137-145) 09/22/18 12:31 Potassium 4.3 mmol/L (3.6-5.0) 09/22/18 12:31 Chloride 106.3 mmol/L (98-107) 09/22/18 12:31 Carbon Dioxide 26 mmol/L (22-30) 09/22/18 12:31 17 mmol/L 09/22/18 12:31 BUN 21 mg/dL (9-20) H 09/22/18 12:31 1.6 mg/dL (0.8-1.5) H 09/22/18 12:31 Estimated GFR 52 ml/min 09/22/18 12:31 13 % 09/22/18 12:31 Glucose 120 mg/dL (75-100) H 09/22/18 12:31 Lactic Acid 1.20 mmol/L (0.7-2.0) 09/22/18 15:04 Calcium 8.9 mg/dL (8.4-10.2) 09/22/18 12:31 0.30 mg/dL (0.1-1.2) 09/22/18 12:31 < 0.2 mg/dL (0-0.2) 09/22/18 12:31 0.1 mg/dL 09/22/18 12:31 AST 10 units/L (5-40) 09/22/18 12:31 ALT 6 units/L (7-56) L 09/22/18 12:31 88 units/L (35-129) 09/22/18 12:31 6.8 g/dL (6.3-8.2) 09/22/18 12:31 3.8 g/dL (3.9-5) L 09/22/18 12:31 1.3 % 09/22/18 12:31 Blood Type O POSITIVE 09/22/18 10:37 Antibody Screen Negative 09/22/18 10:37 Short CBC 09/22/18 Range/Units 10:37 WBC 6.0 (4.5-11.0) K/mm3 Hgb 10.8 L (11.8-15.2) gm/dl Hct 34.3 L (35.5-45.6) % Plt Count 169 (140-440) K/mm3 BMP 09/22/18 09/22/18 10:37 12:31 Sodium TNR 145 Potassium TNR 4.3 Chloride TNR 106.3 Carbon Dioxide TNR 26 BUN TNR 21 H Creatinine TNR 1.6 H Glucose TNR 120 H Calcium TNR 8.9 Liver Function 09/22/18 09/22/18 Range/Units 10:37 12:31 Total Bilirubin TNR 0.30 Direct Bilirubin TNR < 0.2 AST TNR 10 ALT TNR 6 L Alkaline Phosphatase TNR 88 Albumin TNR 3.8 L - Imaging and Cardiology EKG: report reviewed (atrial fibrillation , heart rate of 108) Assessment and Plan Advance Directives: Yes (full code) VTE prophylaxis?: Chemical Plan of care discussed with patient/family: Yes - Patient Problems (1) GI bleed due to NSAIDs Current Visit: Yes Status: Acute Plan to address problem: To stop NSAIDS and Eliquis kIV protonix drip initiated H/H q8 h and transfuse if necessary GI consult requested (2) NETO (acute kidney injury) Current Visit: Yes Status: Acute Plan to address problem: IV fluids for now Monitor BUN and creatinine (3) Insulin dependent diabetes mellitus Current Visit: Yes Status: Chronic Plan to address problem: Coverage only for now Resume regular home insulin once he starts eating Accu-Cheks every 6 hours Check hemoglobin A1c Moderate dose sliding scale protocol (4) Hypertension Current Visit: Yes Status: Chronic Qualifiers: Hypertension type: essential hypertension Qualified Code(s): I10 - Essential (primary) hypertension Plan to address problem: We will hold his oral antihypertensives Catapres patch if necessary (5) Atrial fibrillation with RVR Current Visit: Yes Status: Acute Plan to address problem: Heart rate 108 Cardizem drip was not initiated IV fluids for now Hold ELIQUIS (6) COPD (chronic obstructive pulmonary disease) Current Visit: Yes Status: Chronic Qualifiers: COPD type: unspecified COPD Qualified Code(s): J44.9 - Chronic obstructive pulmonary disease, unspecified Plan to address problem: Continue Combivent (7) DVT prophylaxis Current Visit: Yes Status: Acute Plan to address problem: On SCDs and GI prophylaxis
[2018-09-22] MEDS ORDERED: APRESOLINE IV PRN (22:01)
[2018-09-22] MEDS ORDERED: ZOFRAN IV PRN (22:03)
[2018-09-22] MEDS ORDERED: SODIUM CHLORIDE FLUSH SYRINGE 10 ML IV PRN (22:03)
[2018-09-22] MEDS ORDERED: DILAUDID IV PRN (22:03)
[2018-09-22] MEDS ORDERED: NON-FORMULARY (Ipratropium/Albuterol Sulfate [Combivent Respimat] 1 PUFF) IH SCH (22:15)
[2018-09-22] MEDS ORDERED: PROVENTIL IH PRN (22:17)
[2018-09-22] MEDS: TYLENOL PO PRN (22:34)
[2018-09-22] MEDS: COREG PO SCH (22:34)
[2018-09-22] MEDS: SODIUM CHLORIDE FLUSH SYRINGE 10 ML IV SCH (22:36)
[2018-09-23] MEDS: HumaLOG SUB-Q SCH ×4 (00:12→18:04)
[2018-09-23] MEDS: PROTONIX 80 MG in NACL 0.9% 100 ML IV SCH (00:26)
[2018-09-23] MEDS ORDERED: DUONEB *Not for PRN Use IH SCH (02:00)
[2018-09-23 02:29] LABS: Basophils # (Auto) 0.1 K/mm3 (0.0-0.1); Basophils % (Auto) 1.1 % (0.0-1.8); Eosinophils # (Auto) 0.2 K/mm3 (0.0-0.4); Eosinophils % (Auto) 3.6 % (0.0-4.3); Hemoglobin 11.1 gm/dl (11.8-15.2); Lymphocytes # (Auto) 1.1 K/mm3 (1.2-5.4); Lymphocytes % (Auto) 22.5 % (13.4-35.0); Mean Corpuscular HGB Conc 32 % (32-34); Mean Corpuscular Volume 74 fl (84-94); Monocytes # (Auto) 0.5 K/mm3 (0.0-0.8); Monocytes % (Auto) 10.6 % (0.0-7.3); Platelet Count 146 K/mm3 (140-440); Red Blood Count 4.76 M/mm3 (3.65-5.03); Red Cell Distribution Width 19.1 % (13.2-15.2)
[2018-09-23 02:52] LABS: Albumin 3.6 g/dL (3.9-5); Calcium 9.1 mg/dL (8.4-10.2)
[2018-09-23] MEDS: MORPHINE IV PRN (05:47)
[2018-09-23] MEDS: DUONEB *Not for PRN Use IH SCH ×3 (08:44→19:33)
[2018-09-23] MEDS ORDERED: CATAPRES-TTS PATCH TD SCH (10:00)
--- NOTE | 2018-09-23 14:43 | Progress Note ---
Assessment and Plan 1. Melena - Improved. H/H stable. He does have a history consistent with peptic ulcer disease in the past. - We will do endoscopy tomorrow, after Leonel is out of the system. We may do a more urgent endoscopy if patient develops evidence of active GI bleeding. - Meantime, place on twice a day PPI - Monitor H&H and transfuse as needed - Based on outcome of endoscopy, may consider whether or not a colonoscopy is appropriate. Subjective Date of service: 09/23/18 Interval history: Pt complains of R wrist swelling. No abd pain, N/V. Had 2-3 small black BMs, "clearing up." Objective - Constitutional Vitals: Vital Signs - 12hr 09/23/18 09/23/18 09/23/18 04:36 05:39 08:04 Temperature 98.0 F 97.1 F L Pulse Rate 93 H 87 Respiratory 18 18 Rate Blood Pressure 166/94 149/86 O2 Sat by Pulse 100 Oximetry General appearance: Present: no acute distress - EENT Eyes: PERRL, EOM intact ENT: hearing intact - Respiratory Respiratory effort: normal Extremity abnormal: other (R wrist swelling noted) - Gastrointestinal General gastrointestinal: Present: soft, non-tender - Labs CBC & Chem 7: 09/23/18 02:00 09/23/18 02:00 Labs: Abnormal lab results 09/22/18 09/22/18 09/23/18 Range/Units 22:25 22:46 02:00 Hgb 11.1 L (11.8-15.2) gm/dl Hct 35.0 L (35.5-45.6) % MCV 74 L (84-94) fl MCH 23 L (28-32) pg RDW 19.1 H (13.2-15.2) % [place] % (Auto) 10.6 H (0.0-7.3) % Lymph # 1.1 L (1.2-5.4) K/mm3 Sodium (137-145) mmol/L Chloride (98-107) mmol/L Glucose (75-100) mg/dL POC Glucose 124 H (70-105) Hemoglobin A1c 6.2 H (4-6) % Albumin (3.9-5) g/dL 09/23/18 09/23/18 09/23/18 Range/Units 02:00 05:50 13:41 Hgb (11.8-15.2) gm/dl Hct (35.5-45.6) % MCV (84-94) fl MCH (28-32) pg RDW (13.2-15.2) % [place] % (Auto) (0.0-7.3) % Lymph # (1.2-5.4) K/mm3 Sodium 146 H (137-145) mmol/L Chloride 109.6 H (98-107) mmol/L Glucose 105 H (75-100) mg/dL POC Glucose 121 H 106 H (70-105) Hemoglobin A1c (4-6) % Albumin 3.6 L (3.9-5) g/dL Medications & Allergies - Medications Allergies/Adverse Reactions: Allergies No Known Allergies Allergy (Verified 05/05/18 23:54) Home Medications: Home Medications Medication Instructions Recorded Confirmed Last Taken Type Acetaminophen [Acetaminophen TAB] 500 mg PO TID PRN 07/30/18 07/30/18 Unknown History Diclofenac 1% [Diclofenac 1% 2 gm TP QID 07/30/18 07/30/18 Unknown History topical gel] Insulin Aspart [Novolog] 5 units SUB-Q TIDAC 07/30/18 07/30/18 Unknown History Insulin Glargine [Lantus VIAL] 10 units SUB-Q QHS 07/30/18 07/30/18 Unknown History Ipratropium/Albuterol Sulfate 1 puff IH BID 07/30/18 07/30/18 Unknown History [Combivent Respimat] Omeprazole 20 mg PO QDAY 07/30/18 07/30/18 Unknown History Pregabalin [Lyrica] 50 mg PO BID 07/30/18 07/30/18 Unknown History Sildenafil Citrate [Viagra] 100 mg PO QDAY PRN 07/30/18 07/30/18 Unknown History Tamsulosin [Flomax] 0.4 mg PO QDAY 07/30/18 07/30/18 Unknown History Urea [Ureacin-20 CREAM] 1 applic TP DAILY 07/30/18 07/30/18 Unknown History Apixaban [Eliquis] 5 mg PO BID #60 tablet 08/04/18 Unknown Rx Carvedilol [Coreg] 25 mg PO BID tablet 08/04/18 Unknown Rx predniSONE [Deltasone] 20 mg PO QDAY #3 tablet 08/04/18 Unknown Rx traMADol [Ultram 50 MG tab] 50 mg PO Q6HR PRN #20 tablet 08/04/18 Unknown Rx Meclizine HCl [Meclizine CHEW] 25 mg PO Q8HR PRN #30 tab 09/06/18 Unknown Rx Active Medications: Generic Name Dose Route Start Last Admin Trade Name Freq PRN Reason Stop Dose Admin Acetaminophen 650 mg 09/22/18 22:03 09/22/18 22:34 Tylenol PO 650 mg Q4H PRN Administration Pain MILD(1-3)/Fever >100.5/LOPEZ Albuterol 2.5 mg 09/22/18 22:17 Proventil IH Q3HRT PRN Shortness Of Breath Albuterol/Ipratropium 1 ampul 09/23/18 08:00 09/23/18 13:33 Duoneb *Not For Prn Use* IH 1 ampul TIDRT JERRY Administration Carvedilol 25 mg 09/22/18 22:00 09/22/18 22:34 Coreg PO 25 mg BID JERRY Administration Clonidine HCl 0.2 mg 09/23/18 10:00 Catapres-Tts Patch TD Mo JERRY Hydralazine HCl 10 mg 09/22/18 22:01 Apresoline IV Q4HR PRN Blood Pressure Hydromorphone HCl 0.5 mg 09/22/18 22:03 Dilaudid IV Q3H PRN Pain , Severe (7-10) Sodium Chloride 1,000 mls @ 100 mls/hr 09/22/18 23:00 Nacl 0.9% 1000 Ml IV DIRECT [facility] Insulin Human Lispro 0 unit 09/23/18 00:00 09/23/18 07:17 Humalog SUB-Q Not Given Q6HR [facility] Protocol Morphine Sulfate 2 mg 09/22/18 22:03 09/23/18 05:47 Morphine IV 2 mg Q4H PRN Administration Pain, Moderate (4-6) Ondansetron HCl 4 mg 09/22/18 22:03 Zofran IV Q8H PRN Nausea And Vomiting Pantoprazole Sodium 40 mg 09/23/18 22:00 Protonix IV BID JERRY Sodium Chloride 10 ml 09/22/18 23:00 09/22/18 22:36 Sodium Chloride Flush Syringe 10 Ml IV 10 ml BID JERRY Administration Sodium Chloride 10 ml 09/22/18 22:03 Sodium Chloride Flush Syringe 10 Ml IV PRN PRN LINE FLUSH
[2018-09-23] MEDS: COREG PO SCH ×2 (16:23→22:11)
[2018-09-23] MEDS: SODIUM CHLORIDE FLUSH SYRINGE 10 ML IV SCH ×2 (16:27→22:17)
--- NOTE | 2018-09-23 17:41 | Progress Note ---
Assessment and Plan Assessment and plan: History of present illness: 68-year-old -Turkish male with multiple medical problems including COPD insulin-dependent diabetes peripheral neuropathy BPH atrial fibrillation on ELIQUIS and hypertension comes in for passing black stools for the last 3 days. Patient attributes it to taking a laxative one week ago. Patient is also complaining of dizziness and lightheadedness especially while standing. He feels weak. Precipitating factors is nonsteroidal anti-inflammatory drugs and ELIQUIS. Past Medical History htn, chf, dm, dvt bilat, bilat PE, kidney stones, copd, neuropathy, afib GI bleed due to NSAIDs cont protonix, for egd tomorrow, case dw GI NETO (acute kidney injury) IV fluids for now Monitor BUN and creatinine Insulin dependent diabetes mellitus optimize insulins ) Hypertension We will hold his oral antihypertensives iv or transderm meds prn Atrial fibrillation with RVR eliquis on hold, rate control meds COPD (chronic obstructive pulmonary disease) Continue Combivent DVT prophylaxis On SCDs and GI prophylaxis History Interval history: Review of systems Constitutional: No fevers, no malaise, no joint pains CVS: No chest pain, no orthopnea, no dyspnea on exertion, no pedal edema GI: No abdominal pain, he still complaining of melena Respiratory: no wheezing, no coughing Hospitalist Physical - Physical exam Narrative exam: General.: Appears well, no distress, nontoxic HEENT: Moist mucous membranes, extraocular muscles intact, no lymphadenopathy Neck: supple Cardiac: S1-S2 heard Lungs: clear to auscultation bilaterally Abdomen: soft , nontender, nondistended, bowel sounds positive Extremities: no edema clubbing or cyanosis Skin: no rash or lesions Neurologic: no gross focal deficits Psych: calm, and cooperative - Constitutional Vitals: Temp Pulse Resp BP Pulse Ox 97.1 F L 117 H 20 180/118 96 09/23/18 08:04 09/23/18 16:25 09/23/18 11:43 09/23/18 16:25 09/23/18 09:00 General appearance: Present: no acute distress Results - Labs CBC & Chem 7: 09/26/18 18:57 09/26/18 18:57 Labs: Laboratory Last Values WBC 5.1 K/mm3 (4.5-11.0) 09/23/18 02:00 RBC 4.76 M/mm3 (3.65-5.03) 09/23/18 02:00 Hgb 11.1 gm/dl (11.8-15.2) L 09/23/18 02:00 Hct 35.0 % (35.5-45.6) L 09/23/18 02:00 MCV 74 fl (84-94) L 09/23/18 02:00 MCH 23 pg (28-32) L 09/23/18 02:00 MCHC 32 % (32-34) 09/23/18 02:00 RDW 19.1 % (13.2-15.2) H 09/23/18 02:00 Plt Count 146 K/mm3 (140-440) 09/23/18 02:00 Lymph % (Auto) 22.5 % (13.4-35.0) 09/23/18 02:00 [place] % (Auto) 10.6 % (0.0-7.3) H 09/23/18 02:00 Eos % (Auto) 3.6 % (0.0-4.3) 09/23/18 02:00 Baso % (Auto) 1.1 % (0.0-1.8) 09/23/18 02:00 Lymph # 1.1 K/mm3 (1.2-5.4) L 09/23/18 02:00 [place] # 0.5 K/mm3 (0.0-0.8) 09/23/18 02:00 Eos # 0.2 K/mm3 (0.0-0.4) 09/23/18 02:00 Baso # 0.1 K/mm3 (0.0-0.1) 09/23/18 02:00 Seg Neutrophils % 62.2 % (40.0-70.0) 09/23/18 02:00 Seg Neutrophils # 3.1 K/mm3 (1.8-7.7) 09/23/18 02:00 PT 15.2 Sec. (12.2-14.9) H 09/22/18 10:37 INR 1.13 (0.87-1.13) 09/22/18 10:37 APTT 27.5 Sec. (24.2-36.6) 09/22/18 10:37 Sodium 146 mmol/L (137-145) H 09/23/18 02:00 Potassium 4.3 mmol/L (3.6-5.0) 09/23/18 02:00 Chloride 109.6 mmol/L (98-107) H 09/23/18 02:00 Carbon Dioxide 25 mmol/L (22-30) 09/23/18 02:00 16 mmol/L 09/23/18 02:00 BUN 17 mg/dL (9-20) 09/23/18 02:00 1.5 mg/dL (0.8-1.5) 09/23/18 02:00 Estimated GFR 56 ml/min 09/23/18 02:00 11 % 09/23/18 02:00 Glucose 105 mg/dL (75-100) H 09/23/18 02:00 POC Glucose 106 (70-105) H 09/23/18 13:41 6.2 % (4-6) H 09/22/18 22:25 Lactic Acid 1.20 mmol/L (0.7-2.0) 09/22/18 15:04 Calcium 9.1 mg/dL (8.4-10.2) 09/23/18 02:00 0.60 mg/dL (0.1-1.2) 09/23/18 02:00 < 0.2 mg/dL (0-0.2) 09/22/18 12:31 0.1 mg/dL 09/22/18 12:31 AST 11 units/L (5-40) 09/23/18 02:00 ALT 7 units/L (7-56) 09/23/18 02:00 81 units/L (35-129) 09/23/18 02:00 6.7 g/dL (6.3-8.2) 09/23/18 02:00 3.6 g/dL (3.9-5) L 09/23/18 02:00 1.2 % 09/23/18 02:00 Blood Type O POSITIVE 09/22/18 10:37 Antibody Screen Negative 09/22/18 10:37 Active Medications - Current Medications Current Medications: Generic Name Dose Route Start Last Admin Trade Name Freq PRN Reason Stop Dose Admin Acetaminophen 650 mg 09/22/18 22:03 09/22/18 22:34 Tylenol PO 650 mg Q4H PRN Administration Pain MILD(1-3)/Fever >100.5/LOPEZ Albuterol 2.5 mg 09/22/18 22:17 Proventil IH Q3HRT PRN Shortness Of Breath Albuterol/Ipratropium 1 ampul 09/23/18 08:00 09/23/18 13:33 Duoneb *Not For Prn Use* IH 1 ampul TIDRT JERRY Administration Carvedilol 25 mg 09/22/18 22:00 09/23/18 16:23 Coreg PO 25 mg BID JERRY Administration Clonidine HCl 0.2 mg 09/23/18 10:00 09/23/18 16:25 Catapres-Tts Patch TD 0.2 mg Mo JERRY Administration Hydralazine HCl 10 mg 09/22/18 22:01 Apresoline IV Q4HR PRN Blood Pressure Hydromorphone HCl 0.5 mg 09/22/18 22:03 Dilaudid IV Q3H PRN Pain , Severe (7-10) Sodium Chloride 1,000 mls @ 100 mls/hr 09/22/18 23:00 Nacl 0.9% 1000 Ml IV DIRECT [facility] Insulin Human Lispro 0 unit 09/23/18 00:00 09/23/18 16:27 Humalog SUB-Q Not Given Q6HR [facility] Protocol Morphine Sulfate 2 mg 09/22/18 22:03 09/23/18 05:47 Morphine IV 2 mg Q4H PRN Administration Pain, Moderate (4-6) Ondansetron HCl 4 mg 09/22/18 22:03 Zofran IV Q8H PRN Nausea And Vomiting Pantoprazole Sodium 40 mg 09/23/18 22:00 Protonix IV BID JERRY Sodium Chloride 10 ml 09/22/18 23:00 09/23/18 16:27 Sodium Chloride Flush Syringe 10 Ml IV 10 ml BID JERRY Administration Sodium Chloride 10 ml 09/22/18 22:03 Sodium Chloride Flush Syringe 10 Ml IV PRN PRN LINE FLUSH
[2018-09-23 19:41] LABS: Hematocrit 34.4 % (35.5-45.6); Hemoglobin 10.8 gm/dl (11.8-15.2)
[2018-09-23] MEDS: PROTONIX IV SCH (22:16)
[2018-09-24] MEDS: HumaLOG SUB-Q SCH ×3 (00:20→18:48)
[2018-09-24 00:36] LABS: Hematocrit 32.3 % (35.5-45.6); Hemoglobin 10.3 gm/dl (11.8-15.2)
[2018-09-24] MEDS: NACL 0.9% 1000 ML 1,000 ML IV SCH ×2 (01:21→14:08)
[2018-09-24] MEDS: DUONEB *Not for PRN Use IH SCH ×3 (08:31→19:43)
--- NOTE | 2018-09-24 12:09 | Progress Note ---
Assessment and Plan Assessment and plan: History of present illness: 68-year-old -[place]ym[place] male with multiple medical problems including COPD insulin-dependent diabetes peripheral neuropathy BPH atrial fibrillation on ELIQUIS and hypertension comes in for passing black stools for the last 3 days. Patient attributes it to taking a laxative one week ago. Patient is also complaining of dizziness and lightheadedness especially while standing. He feels weak. Precipitating factors is nonsteroidal anti-inflammatory drugs and ELIQUIS. Past Medical History htn, chf, dm, dvt bilat, bilat PE, kidney stones, copd, neuropathy, afib GI bleed due to NSAIDs cont protonix, for egd, case dw GI NETO (acute kidney injury) IV fluids for now Monitor BUN and creatinine Insulin dependent diabetes mellitus optimize insulins ) Hypertension We will hold his oral antihypertensives iv or transderm meds prn Atrial fibrillation with RVR eliquis on hold, rate control meds COPD (chronic obstructive pulmonary disease) Continue Combivent DVT prophylaxis On SCDs and GI prophylaxis History Interval history: Review of systems Constitutional: No fevers, no malaise, no joint pains CVS: No chest pain, no orthopnea, no dyspnea on exertion, no pedal edema GI: No abdominal pain, he still complaining of melena Respiratory: no wheezing, no coughing Hospitalist Physical - Physical exam Narrative exam: General.: Appears well, no distress, nontoxic HEENT: Moist mucous membranes, extraocular muscles intact, no lymphadenopathy Neck: supple Cardiac: S1-S2 heard Lungs: clear to auscultation bilaterally Abdomen: soft , nontender, nondistended, bowel sounds positive Extremities: no edema clubbing or cyanosis Skin: no rash or lesions Neurologic: no gross focal deficits Psych: calm, and cooperative - Constitutional Vitals: Temp Pulse Resp BP Pulse Ox 98.5 F 90 18 151/80 100 09/24/18 07:32 09/24/18 08:34 09/24/18 08:34 09/24/18 07:32 09/24/18 08:32 General appearance: Present: no acute distress Results - Labs CBC & Chem 7: 09/26/18 18:57 09/26/18 18:57 Labs: Laboratory Last Values WBC 5.1 K/mm3 (4.5-11.0) 09/23/18 02:00 RBC 4.76 M/mm3 (3.65-5.03) 09/23/18 02:00 Hgb 10.3 gm/dl (11.8-15.2) L 09/24/18 00:21 Hct 32.3 % (35.5-45.6) L 09/24/18 00:21 MCV 74 fl (84-94) L 09/23/18 02:00 MCH 23 pg (28-32) L 09/23/18 02:00 MCHC 32 % (32-34) 09/23/18 02:00 RDW 19.1 % (13.2-15.2) H 09/23/18 02:00 Plt Count 146 K/mm3 (140-440) 09/23/18 02:00 Lymph % (Auto) 22.5 % (13.4-35.0) 09/23/18 02:00 [place] % (Auto) 10.6 % (0.0-7.3) H 09/23/18 02:00 Eos % (Auto) 3.6 % (0.0-4.3) 09/23/18 02:00 Baso % (Auto) 1.1 % (0.0-1.8) 09/23/18 02:00 Lymph # 1.1 K/mm3 (1.2-5.4) L 09/23/18 02:00 [place] # 0.5 K/mm3 (0.0-0.8) 09/23/18 02:00 Eos # 0.2 K/mm3 (0.0-0.4) 09/23/18 02:00 Baso # 0.1 K/mm3 (0.0-0.1) 09/23/18 02:00 Seg Neutrophils % 62.2 % (40.0-70.0) 09/23/18 02:00 Seg Neutrophils # 3.1 K/mm3 (1.8-7.7) 09/23/18 02:00 PT 15.2 Sec. (12.2-14.9) H 09/22/18 10:37 INR 1.13 (0.87-1.13) 09/22/18 10:37 APTT 27.5 Sec. (24.2-36.6) 09/22/18 10:37 Sodium 146 mmol/L (137-145) H 09/23/18 02:00 Potassium 4.3 mmol/L (3.6-5.0) 09/23/18 02:00 Chloride 109.6 mmol/L (98-107) H 09/23/18 02:00 Carbon Dioxide 25 mmol/L (22-30) 09/23/18 02:00 16 mmol/L 09/23/18 02:00 BUN 17 mg/dL (9-20) 09/23/18 02:00 1.5 mg/dL (0.8-1.5) 09/23/18 02:00 Estimated GFR 56 ml/min 09/23/18 02:00 11 % 09/23/18 02:00 Glucose 105 mg/dL (75-100) H 09/23/18 02:00 POC Glucose 117 (70-105) H 09/24/18 06:28 6.2 % (4-6) H 09/22/18 22:25 Lactic Acid 1.20 mmol/L (0.7-2.0) 09/22/18 15:04 Calcium 9.1 mg/dL (8.4-10.2) 09/23/18 02:00 0.60 mg/dL (0.1-1.2) 09/23/18 02:00 < 0.2 mg/dL (0-0.2) 09/22/18 12:31 0.1 mg/dL 09/22/18 12:31 AST 11 units/L (5-40) 09/23/18 02:00 ALT 7 units/L (7-56) 09/23/18 02:00 81 units/L (35-129) 09/23/18 02:00 < 0.010 ng/mL (0.00-0.029) 09/24/18 05:17 6.7 g/dL (6.3-8.2) 09/23/18 02:00 3.6 g/dL (3.9-5) L 09/23/18 02:00 1.2 % 09/23/18 02:00 Blood Type O POSITIVE 09/22/18 10:37 Antibody Screen Negative 09/22/18 10:37 Active Medications - Current Medications Current Medications: Generic Name Dose Route Start Last Admin Trade Name Suzy PRN Reason Stop Dose Admin Acetaminophen 650 mg 09/22/18 22:03 09/22/18 22:34 Tylenol PO 650 mg Q4H PRN Administration Pain MILD(1-3)/Fever >100.5/LOPEZ Albuterol 2.5 mg 09/22/18 22:17 Proventil IH Q3HRT PRN Shortness Of Breath Albuterol/Ipratropium 1 ampul 09/23/18 08:00 09/24/18 08:31 Duoneb *Not For Prn Use* IH 1 ampul TIDRT JERRY Administration Carvedilol 25 mg 09/22/18 22:00 09/23/18 22:11 Coreg PO 25 mg BID JERRY Administration Clonidine HCl 0.2 mg 09/23/18 10:00 09/23/18 16:25 Catapres-Tts Patch TD 0.2 mg Mo JERRY Administration Hydralazine HCl 10 mg 09/22/18 22:01 Apresoline IV Q4HR PRN Blood Pressure Hydromorphone HCl 0.5 mg 09/22/18 22:03 Dilaudid IV Q3H PRN Pain , Severe (7-10) Sodium Chloride 1,000 mls @ 100 mls/hr 09/22/18 23:00 09/24/18 01:21 Nacl 0.9% 1000 Ml IV 100 mls/hr DIRECT JERRY Administration Insulin Human Lispro 0 unit 09/23/18 00:00 09/24/18 00:20 Humalog SUB-Q Not Given Q6HR [facility] Protocol Morphine Sulfate 2 mg 09/22/18 22:03 09/23/18 05:47 Morphine IV 2 mg Q4H PRN Administration Pain, Moderate (4-6) Ondansetron HCl 4 mg 09/22/18 22:03 Zofran IV Q8H PRN Nausea And Vomiting Pantoprazole Sodium 40 mg 09/23/18 22:00 09/23/18 22:16 Protonix IV 40 mg BID JERRY Administration Sodium Chloride 10 ml 09/22/18 23:00 09/23/18 22:17 Sodium Chloride Flush Syringe 10 Ml IV 10 ml BID JERRY Administration Sodium Chloride 10 ml 09/22/18 22:03 Sodium Chloride Flush Syringe 10 Ml IV PRN PRN LINE FLUSH
[2018-09-24] MEDS: COREG PO SCH ×2 (14:08→21:30)
[2018-09-24] MEDS: SODIUM CHLORIDE FLUSH SYRINGE 10 ML IV SCH ×2 (14:08→21:30)
[2018-09-24] MEDS: PROTONIX IV SCH ×2 (14:08→21:30)
--- NOTE | 2018-09-24 14:54 | Anesthesia Day of Surgery ---
Anesthesia Day of Surgery - Day of Surgery Patient Examined: Yes Patient H&P Reviewed: Yes Patient is NPO: Yes Beta Blockers: Yes
--- NOTE | 2018-09-24 14:54 | Anesthesia Day of Surgery ---
Anesthesia Day of Surgery - Day of Surgery Patient Examined: Yes Patient H&P Reviewed: Yes Patient is NPO: Yes Beta Blockers: No Cardiac Clearance: No
[2018-09-24] MEDS ORDERED: NACL 0.9% 1000 ML 1,000 ML IV SCH (15:00)
[2018-09-24] MEDS ORDERED: WATER FOR IRRIG STERILE IR ONE (15:10)
[2018-09-24] MEDS ORDERED: DIPRIVAN 10 MG/ML IV ONE (15:33)
[2018-09-24] MEDS ORDERED: XYLOCAINE 2% INFILTRATI ONE (15:34)
--- NOTE | 2018-09-24 15:57 | Post Operative Note ---
Pre-op diagnosis: Melena Post-op diagnosis: other (Normal EGD) Findings: 1. Normal EGD Procedure: EGD Anesthesia: MAC Surgeon: TANGELA MORFIN Estimated blood loss: none Pathology: none Condition: stable Disposition: floor (Colonoscopy tomorrow.)
--- NOTE | 2018-09-24 17:42 | Operative Report ---
PROCEDURE: Upper endoscopy. PREOPERATIVE DIAGNOSIS: Melena. POSTOPERATIVE DIAGNOSIS: Normal upper endoscopy. SEDATION: MAC by Anesthesia. HISTORY: The patient is a 68-year-old man with atrial fibrillation, who is on Eliquis. He also has a history of pulmonary embolism in 2018. He presented with melena for 3 days and had stool that was positive for occult blood. Procedure, indications, risks and benefits were explained and consent was obtained. DESCRIPTION OF PROCEDURE: The patient was placed in left lateral decubitus position and sedated. OpenWhere video upper scope was passed through the mouth and oropharynx into the descending duodenum. Scope was then gradually withdrawn with close inspection of the mucosa. FINDINGS: 1. Normal esophagus. 2. Normal gastric antrum, fundus, body and cardia. 3. Normal appearing duodenal bulb and duodenum with no evidence of bleeding source. The patient tolerated the procedure well without immediate complications. IMPRESSION: Normal upper endoscopy with no evidence of bleeding source. PLAN: Colonoscopy tomorrow. JOB# [id number] HRC/NTS
[2018-09-24] MEDS ORDERED: GOLYTELY PO ONE (19:16)
[2018-09-25] MEDS: HumaLOG SUB-Q SCH ×4 (05:15→17:11)
[2018-09-25] MEDS: DUONEB *Not for PRN Use IH SCH ×3 (08:43→19:26)
[2018-09-25] MEDS: COREG PO SCH ×2 (09:23→22:42)
[2018-09-25] MEDS: SODIUM CHLORIDE FLUSH SYRINGE 10 ML IV SCH (09:23)
[2018-09-25] MEDS: PROTONIX IV SCH (09:23)
[2018-09-25] MEDS: NACL 0.9% 1000 ML 1,000 ML IV SCH ×2 (12:38→17:10)
[2018-09-25] MEDS ORDERED: DIPRIVAN 10 MG/ML IV ONE ×2 (12:41)
--- NOTE | 2018-09-25 12:43 | Anesthesia Day of Surgery ---
Anesthesia Day of Surgery - Day of Surgery Patient Examined: Yes Patient H&P Reviewed: Yes Patient is NPO: Yes Beta Blockers: Yes Cardiac Clearance: Yes Pulmonary Clearance: Yes Jose's Test: N/A
--- NOTE | 2018-09-25 12:46 | Anesthesia Consultation ---
Anesthesia Consult and Med Hx - Airway ROM Head & Neck: Adequate Mental/Hyoid Distance: Adequate Mallampati Class: Class II Intubation Access Assessment: Probably Good - Pulmonary Exam CTA: Yes - Cardiac Exam Cardiac Exam: RRR - Pre-Operative Health Status ASA Pre-Surgery Classification: ASA3 Proposed Anesthetic Plan: General, MAC - Pulmonary Hx Smoking: Yes COPD: Yes - Cardiovascular System Hx Hypertension: Yes Hx Cardia Arrhythmia: Yes (A-Fib) - Central Nervous System Hx Psychiatric Problems: No - Gastrointestinal Hx Ulcer: Yes (GI bleed) - Endocrine Hx Insulin Dependent Diabetes: Yes
--- NOTE | 2018-09-25 13:17 | Progress Note ---
Assessment and Plan Assessment and plan: History of present illness: 68-year-old -[place]er male with multiple medical problems including COPD insulin-dependent diabetes peripheral neuropathy BPH atrial fibrillation on ELIQUIS and hypertension comes in for passing black stools for the last 3 days. Patient attributes it to taking a laxative one week ago. Patient is also complaining of dizziness and lightheadedness especially while standing. He feels weak. Precipitating factors is nonsteroidal anti-inflammatory drugs and ELIQUIS. Past Medical History htn, chf, dm, dvt bilat, bilat PE, kidney stones, copd, neuropathy, afib GI bleed due to NSAIDs cont protonix,egd negative, case dw GI NETO (acute kidney injury) IV fluids for now Monitor BUN and creatinine Insulin dependent diabetes mellitus optimize insulins ) Hypertension We will hold his oral antihypertensives iv or transderm meds prn Atrial fibrillation with RVR eliquis on hold, rate control meds COPD (chronic obstructive pulmonary disease) Continue Combivent DVT prophylaxis On SCDs and GI prophylaxis History Interval history: Review of systems Constitutional: No fevers, no malaise, no joint pains CVS: No chest pain, no orthopnea, no dyspnea on exertion, no pedal edema GI: No abdominal pain, Respiratory: no wheezing, no coughing Hospitalist Physical - Physical exam Narrative exam: General.: Appears well, no distress, nontoxic HEENT: Moist mucous membranes, extraocular muscles intact, no lymphadenopathy Neck: supple Cardiac: S1-S2 heard Lungs: clear to auscultation bilaterally Abdomen: soft , nontender, nondistended, bowel sounds positive Extremities: no edema clubbing or cyanosis Skin: no rash or lesions Neurologic: no gross focal deficits Psych: calm, and cooperative - Constitutional Vitals: Temp Pulse Resp BP Pulse Ox 98.5 F 99 H 20 134/80 97 09/25/18 12:27 09/25/18 12:27 09/25/18 12:27 09/25/18 12:27 09/25/18 12:27 General appearance: Present: no acute distress Results - Labs CBC & Chem 7: 09/26/18 18:57 09/26/18 18:57 Labs: Laboratory Last Values WBC 5.1 K/mm3 (4.5-11.0) 09/23/18 02:00 RBC 4.76 M/mm3 (3.65-5.03) 09/23/18 02:00 Hgb 10.3 gm/dl (11.8-15.2) L 09/24/18 00:21 Hct 32.3 % (35.5-45.6) L 09/24/18 00:21 MCV 74 fl (84-94) L 09/23/18 02:00 MCH 23 pg (28-32) L 09/23/18 02:00 MCHC 32 % (32-34) 09/23/18 02:00 RDW 19.1 % (13.2-15.2) H 09/23/18 02:00 Plt Count 146 K/mm3 (140-440) 09/23/18 02:00 Lymph % (Auto) 22.5 % (13.4-35.0) 09/23/18 02:00 [place] % (Auto) 10.6 % (0.0-7.3) H 09/23/18 02:00 Eos % (Auto) 3.6 % (0.0-4.3) 09/23/18 02:00 Baso % (Auto) 1.1 % (0.0-1.8) 09/23/18 02:00 Lymph # 1.1 K/mm3 (1.2-5.4) L 09/23/18 02:00 [place] # 0.5 K/mm3 (0.0-0.8) 09/23/18 02:00 Eos # 0.2 K/mm3 (0.0-0.4) 09/23/18 02:00 Baso # 0.1 K/mm3 (0.0-0.1) 09/23/18 02:00 Seg Neutrophils % 62.2 % (40.0-70.0) 09/23/18 02:00 Seg Neutrophils # 3.1 K/mm3 (1.8-7.7) 09/23/18 02:00 PT 15.2 Sec. (12.2-14.9) H 09/22/18 10:37 INR 1.13 (0.87-1.13) 09/22/18 10:37 APTT 27.5 Sec. (24.2-36.6) 09/22/18 10:37 Sodium 146 mmol/L (137-145) H 09/23/18 02:00 Potassium 4.3 mmol/L (3.6-5.0) 09/23/18 02:00 Chloride 109.6 mmol/L (98-107) H 09/23/18 02:00 Carbon Dioxide 25 mmol/L (22-30) 09/23/18 02:00 16 mmol/L 09/23/18 02:00 BUN 17 mg/dL (9-20) 09/23/18 02:00 1.5 mg/dL (0.8-1.5) 09/23/18 02:00 Estimated GFR 56 ml/min 09/23/18 02:00 11 % 09/23/18 02:00 Glucose 105 mg/dL (75-100) H 09/23/18 02:00 POC Glucose 112 (70-105) H 09/25/18 12:39 6.2 % (4-6) H 09/22/18 22:25 Lactic Acid 1.20 mmol/L (0.7-2.0) 09/22/18 15:04 Calcium 9.1 mg/dL (8.4-10.2) 09/23/18 02:00 0.60 mg/dL (0.1-1.2) 09/23/18 02:00 < 0.2 mg/dL (0-0.2) 09/22/18 12:31 0.1 mg/dL 09/22/18 12:31 AST 11 units/L (5-40) 09/23/18 02:00 ALT 7 units/L (7-56) 09/23/18 02:00 81 units/L (35-129) 09/23/18 02:00 < 0.010 ng/mL (0.00-0.029) 09/24/18 05:17 6.7 g/dL (6.3-8.2) 09/23/18 02:00 3.6 g/dL (3.9-5) L 09/23/18 02:00 1.2 % 09/23/18 02:00 Blood Type O POSITIVE 09/22/18 10:37 Antibody Screen Negative 09/22/18 10:37 Active Medications - Current Medications Current Medications: Generic Name Dose Route Start Last Admin Trade Name Freq PRN Reason Stop Dose Admin Acetaminophen 650 mg 09/22/18 22:03 09/22/18 22:34 Tylenol PO 650 mg Q4H PRN Administration Pain MILD(1-3)/Fever >100.5/LOPEZ Albuterol 2.5 mg 09/22/18 22:17 Proventil IH Q3HRT PRN Shortness Of Breath Albuterol/Ipratropium 1 ampul 09/23/18 08:00 09/25/18 08:43 Duoneb *Not For Prn Use* IH 1 ampul TIDRT JERRY Administration Carvedilol 25 mg 09/22/18 22:00 09/25/18 09:23 Coreg PO 25 mg BID JERRY Administration Clonidine HCl 0.2 mg 09/23/18 10:00 09/23/18 16:25 Catapres-Tts Patch TD 0.2 mg Mo JERRY Administration Hydralazine HCl 10 mg 09/22/18 22:01 Apresoline IV Q4HR PRN Blood Pressure Hydromorphone HCl 0.5 mg 09/22/18 22:03 Dilaudid IV Q3H PRN Pain , Severe (7-10) Sodium Chloride 1,000 mls @ 50 mls/hr 09/24/18 15:00 09/24/18 15:28 Nacl 0.9% 1000 Ml IV 50 mls/hr DIRECT JERRY Administration Sodium Chloride 1,000 mls @ 50 mls/hr 09/25/18 13:00 09/25/18 12:38 Nacl 0.9% 1000 Ml IV 50 mls/hr DIRECT JERRY Administration Insulin Human Lispro 0 unit 09/23/18 00:00 09/25/18 06:24 Humalog SUB-Q Not Given Q6HR [facility] Protocol Morphine Sulfate 2 mg 09/22/18 22:03 09/23/18 05:47 Morphine IV 2 mg Q4H PRN Administration Pain, Moderate (4-6) Ondansetron HCl 4 mg 09/22/18 22:03 Zofran IV Q8H PRN Nausea And Vomiting Pantoprazole Sodium 40 mg 09/26/18 10:00 Protonix PO DAILY JERRY Sodium Chloride 10 ml 09/22/18 23:00 09/25/18 09:23 Sodium Chloride Flush Syringe 10 Ml IV 10 ml BID JERRY Administration Sodium Chloride 10 ml 09/22/18 22:03 Sodium Chloride Flush Syringe 10 Ml IV PRN PRN LINE FLUSH
[2018-09-25] MEDS ORDERED: WATER FOR IRRIG STERILE ONE (13:35)
--- NOTE | 2018-09-25 13:55 | Post Operative Note ---
Pre-op diagnosis: Melena Post-op diagnosis: other (Descending colon polyp) Findings: 1. 6 mm sessile descending colon polyp, hot biopsied. 2. Otherwise normal colon, with no bleeding source. Procedure: Colonoscopy with hot biopsy polypectomy Anesthesia: MAC Surgeon: TANGELA MORFIN Estimated blood loss: none Pathology: list (1. Descending colon polyp) Specimen disposition: to lab Condition: stable Disposition: floor (Okay to resume OAC and D/C to home with outpatient f/u, for possible Pillcam.)
--- NOTE | 2018-09-25 15:07 | Operative Report ---
COLONOSCOPY REPORT PROCEDURE PERFORMED: Colonoscopy with hot biopsy and polypectomy. PREOPERATIVE DIAGNOSIS: Melena. POSTOPERATIVE DIAGNOSIS: Colon polyp. SEDATION: MAC by Anesthesia. HISTORY: The patient is a 68-year-old man with atrial fibrillation who is on oral anticoagulation. He also has history of pulmonary embolism in 2018. He presented to the hospital with melena, but his hemoglobin was stable. Upper endoscopy was normal. Colonoscopy is being performed to evaluate lower GI tract. DESCRIPTION OF PROCEDURE: Indications, risks, and benefits were explained and consent was obtained. The patient was placed in left lateral decubitus position and sedated. Video colonoscope was passed through the rectum after digital examination and passed with minimal difficulty to the cecum, which was identified by the ileocecal valve and the appendiceal orifice. Scope was gradually withdrawn with close inspection of the mucosa. Prep was good. FINDINGS: 1. A 6 mm sessile polyp noted in descending colon -- removed with hot biopsy polypectomy. 2. Remainder of visualized colonic mucosa is normal appearing with no evidence of mass lesions, vascular lesions or inflammation. The patient tolerated the procedure well without immediate complication. IMPRESSION: 1. Descending colon polyp -- hot biopsied. 2. Otherwise, normal endoscopy. 3. No bleeding source identified. PLAN: 1. May resume oral anticoagulation and discharge to home, especially given that hemoglobin has remained at near his baseline. 2. Follow up as outpatient and the patient to try and help us acquire records from [facility] where he underwent some sort of an intestinal resection for bleeding for being on Xarelto in the past. 3. May do pill camera once we get the records back and see how the patient does. 4. If rebleeds, he will need nuclear medicine bleeding scan and further evaluation. JOB# [id number] HRC/NTS
[2018-09-25] MEDS ORDERED: D50W (25GM) Syringe IV PRN (15:49)
[2018-09-25] MEDS: MORPHINE IV PRN (22:47)
[2018-09-26] MEDS: SODIUM CHLORIDE FLUSH SYRINGE 10 ML IV SCH ×2 (05:21→09:19)
--- NOTE | 2018-09-26 07:14 | Discharge Summary ---
Providers - Providers Date of Admission: 09/22/18 13:30 Attending physician: DAWOOD TRAYLOR MD 09/22/18 13:23 Consult to Physician [CONS] Stat Comment: Consulting Provider: TANGELA MORFIN Physician Instructions: Reason For Exam: GI BLEED [facility] Condition: Stable Hospital course: 68-year-old -[place] male with multiple medical problems including COPD insulin-dependent diabetes peripheral neuropathy BPH atrial fibrillation on ELIQUIS and hypertension comes in for passing black stools for the last 3 days. Patient attributes it to taking a laxative one week ago. Patient is also complaining of dizziness and lightheadedness especially while standing. He feels weak. Precipitating factors is nonsteroidal anti-inflammatory drugs and ELIQUIS. Past Medical History htn, chf, dm, dvt bilat, bilat PE, kidney stones, copd, neuropathy, afib * Patient received Protonix drip, EGD was negative, colonoscopy showed a polyp which was biopsied, no source of bleeding was identified * Outpatient PillCam was recommended if patient rebleeds. Patient was resumed on his elbow" for stroke prophylaxis * His meds are optimize for chronic conditions * Patient had mild acute kidney injury which resulted IV fluids Diagnoses Acute GI bleed likely due to NSAIDs and exacerbated by blood thinner NETO (acute kidney injury) vasomotor nephropathy Insulin dependent diabetes mellitus Hypertension Atrial fibrillation with RVR COPD (chronic obstructive pulmonary disease) DVT prophylaxis Disposition: DC/TX-06 HOME [facility] Time spent for discharge: 33 mins Core Measure Documentation - Palliative Care Palliative Care/ Comfort Measures: Not Applicable - Core Measures Any of the following diagnoses?: none Exam - Constitutional Vitals: Temp Pulse Resp BP Pulse Ox 97.6 F 99 H 20 141/78 99 09/26/18 02:38 09/26/18 03:06 09/26/18 02:38 09/26/18 02:38 09/26/18 03:06 General appearance: Present: no acute distress, well-nourished - EENT Eyes: Present: PERRL ENT: hearing intact, clear oral mucosa - Neck Neck: Present: supple, normal ROM - Respiratory Respiratory effort: normal Respiratory: bilateral: CTA - Cardiovascular Heart Sounds: Present: S1 & S2. Absent: rub, click - Extremities Extremities: pulses symmetrical, No edema Peripheral Pulses: within normal limits - Abdominal General gastrointestinal: Present: soft, non-tender, non-distended, normal bowel sounds Male genitourinary: Present: normal - Integumentary Integumentary: Present: clear, warm, dry - Musculoskeletal Musculoskeletal: gait normal, strength equal bilaterally - Psychiatric Psychiatric: appropriate mood/affect, intact judgment & insight - Neurologic Neurologic: CNII-XII intact, moves all extremities Plan Follow up with: CASSIE MON MD [Primary Care Provider] - 3-5 Days Forms: Accompanied Note Prescriptions: Colchicine 0.6 mg PO QDAY #30 capsule predniSONE [Deltasone] 20 mg PO QDAY #7 tablet oxyCODONE /ACETAMINOPHEN [Percocet 5/325 mg] 1 tab PO Q6HR PRN #14 tablet PRN Reason: Pain Pantoprazole [Protonix TAB] 40 mg PO DAILY #30 tablet
[2018-09-26] MEDS: HumaLOG SUB-Q SCH ×3 (08:38→17:58)
[2018-09-26] MEDS: COREG PO SCH (09:18)
[2018-09-26] MEDS: PROTONIX PO SCH (09:18)
[2018-09-26] MEDS: TYLENOL PO PRN (09:24)
--- NOTE | 2018-09-26 10:36 | Gastroenterology Progress Note ---
<PORTIA MORALES - Last Filed: 09/26/18 10:41> Assessment and Plan 1. Melena -H/H stable -continue to monitor H/H and transfuse as needed -no active signs of bleeding overnight or this am -s/p EGD with normal results -s/p colonoscopy that showed a colon polyp but otherwise normal -etiology unclear- possible small bowel source -okay to resume OAC -continue PPI and supportive care -recommend pillcam as outpatient for further evaluation -if bleeding reoccurs, recommend stat bleeding scan -if no further bleeding, patient okay to be d/c per GI standpoint with f/u in clinic ~ 2 weeks -will sign off, please call if needed Subjective Date of service: 09/26/18 Principal diagnosis: GI bleed Interval history: No acute distress or active signs of bleeding overnight or this am. Objective - Constitutional Vitals: Temp Pulse Resp BP Pulse Ox 98.0 F 102 H 20 184/84 96 09/26/18 07:42 09/26/18 07:42 09/26/18 07:42 09/26/18 07:42 09/26/18 07:42 General appearance: no acute distress - Respiratory Respiratory effort: normal - Cardiovascular Rhythm: other (tachycardia) - Gastrointestinal General gastrointestinal: Present: soft, non-tender, non-distended, normal bowel sounds - Neurologic Neurological: alert and oriented x3 - Labs CBC & Chem 7: 09/24/18 00:21 09/23/18 02:00 Labs: Laboratory Results - last 24 hr 09/25/18 09/25/18 09/25/18 12:39 16:52 21:56 POC Glucose 112 H 153 H 132 H 09/26/18 07:48 POC Glucose 150 H <TANGELA MORFIN - Last Filed: 09/26/18 12:22> Assessment and Plan Plan as noted. Will sign off. Objective - Constitutional Vitals: Temp Pulse Resp BP Pulse Ox 98.0 F 102 H 20 184/84 96 09/26/18 07:42 09/26/18 07:42 09/26/18 07:42 09/26/18 07:42 09/26/18 07:42 - Labs CBC & Chem 7: 09/24/18 00:21 09/23/18 02:00 Labs: Laboratory Results - last 24 hr 09/25/18 09/25/18 09/25/18 12:39 16:52 21:56 POC Glucose 112 H 153 H 132 H 09/26/18 09/26/18 07:48 11:42 POC Glucose 150 H 142 H
--- NOTE | 2018-09-26 14:20 | Vascular Lab Report ---
PROCEDURE: Venous ultrasound right lower extremity, venous ultrasound left lower extremity TECHNIQUE: 2-D imaging, pulsed Doppler imaging color flow Doppler imaging was utilized to evaluate t he deep venous system of the right and left lower extremities HISTORY: LE edema COMPARISONS: None FINDINGS: The left common femoral vein and superficial femoral vein and popliteal vein posterior tibial vein an d peroneal veins are unremarkable. No filling defects are seen to suggest DVT. Vessels are normally c ompressible. On the right side the common femoral vein is normal in appearance. Normal compressibility is noted. I n the mid and distal superficial femoral vein and the vessel is incompletely compressible. This appea cisco suggests incompletely occluding acute or chronic DVT. The popliteal vein and posterior tibial v ein as well as the peroneal vein are unremarkable. IMPRESSION: Incomplete compressibility mid and distal superficial femoral vein suggesting incompletely occluding acute or chronic DVT. The right and left lower extremities otherwise are unremarkable.. This document is electronically signed by Elian Manzanares MD., September 26 2018 02:19:00 PM ET
[2018-09-26] MEDS ORDERED: MECLIZINE HCL 25 MG PO PRN (18:05)
[2018-09-26] MEDS ORDERED: TYLENOL PO PRN (18:05)
[2018-09-26] MEDS ORDERED: NON-FORMULARY (Omeprazole [Omeprazole] 20 MG) PO SCH (18:15)
[2018-09-26] MEDS ORDERED: UREA TP SCH (18:15)
[2018-09-26] MEDS ORDERED: ULTRAM PO PRN (19:02)
[2018-09-26] MEDS ORDERED: ANTIVERT PO PRN (19:07)
[2018-09-26] MEDS: DELTASONE PO SCH (20:00)
[2018-09-26 20:25] LABS: Basophils % (Auto) 0.3 % (0.0-1.8); Eosinophils % (Auto) 0.3 % (0.0-4.3); Hematocrit 31.7 % (35.5-45.6); Hemoglobin 10.2 gm/dl (11.8-15.2); Mean Corpuscular HGB Conc 32 % (32-34); Mean Corpuscular Volume 73 fl (84-94); Monocytes # (Auto) 0.9 K/mm3 (0.0-0.8); Monocytes % (Auto) 12.2 % (0.0-7.3); Platelet Count 124 K/mm3 (140-440); Red Blood Count 4.33 M/mm3 (3.65-5.03); Red Cell Distribution Width 19.4 % (13.2-15.2)
[2018-09-26 20:38] LABS: BUN/Creatinine Ratio 10; Blood Urea Nitrogen 14 mg/dL (9-20); Calcium 8.9 mg/dL (8.4-10.2); Hemolysis Index 5
[2018-09-26] MEDS ORDERED: NON-FORMULARY (Pregabalin [Lyrica] 50 MG) PO SCH (22:00)
[2018-09-26] MEDS ORDERED: LANTUS SUB-Q SCH (22:00)
[2018-09-26] MEDS: LYRICA PO SCH (22:02)
[2018-09-27] MEDS: COREG PO SCH ×3 (00:06→22:01)
[2018-09-27] MEDS: HumaLOG SUB-Q SCH ×7 (00:08→16:33)
[2018-09-27] MEDS: FLOMAX PO SCH ×2 (00:34→09:22)
[2018-09-27] MEDS: DICLOFENAC 1% TP SCH ×4 (00:35→19:38)
[2018-09-27] MEDS ORDERED: INSULIN ASPART 5 UNIT SUB-Q SCH (07:30)
[2018-09-27] MEDS: PROTONIX PO SCH (09:22)
[2018-09-27] MEDS: ELIQUIS PO SCH ×2 (09:22→22:00)
[2018-09-27] MEDS: LYRICA PO SCH (09:22)
[2018-09-27] MEDS: DELTASONE PO SCH (09:23)
[2018-09-27] MEDS: SODIUM CHLORIDE FLUSH SYRINGE 10 ML IV SCH (09:23)
[2018-09-27] MEDS: COLCHICINE PO SCH (11:57)
[2018-09-28] MEDS: HumaLOG SUB-Q SCH ×4 (09:00→12:25)
[2018-09-28] MEDS: COLCHICINE PO SCH (09:46)
[2018-09-28] MEDS: LYRICA PO SCH (09:47)
[2018-09-28] MEDS: FLOMAX PO SCH (09:48)
[2018-09-28] MEDS: ELIQUIS PO SCH (09:48)
[2018-09-28] MEDS: PROTONIX PO SCH (09:48)
[2018-09-28] MEDS: DELTASONE PO SCH (09:48)
[2018-09-28] MEDS: COREG PO SCH (09:49)
[2018-09-28] MEDS: SODIUM CHLORIDE FLUSH SYRINGE 10 ML IV SCH (09:50)
[2018-09-28] MEDS: DICLOFENAC 1% TP SCH (09:52)
--- NOTE | 2018-09-28 12:26 | Progress Note ---
Assessment and Plan Assessment and plan: History of present illness: 68-year-old -[place] male with multiple medical problems including COPD insulin-dependent diabetes peripheral neuropathy BPH atrial fibrillation on ELIQUIS and hypertension comes in for passing black stools for the last 3 days. Patient attributes it to taking a laxative one week ago. Patient is also complaining of dizziness and lightheadedness especially while standing. He feels weak. Precipitating factors is nonsteroidal anti-inflammatory drugs and ELIQUIS. Past Medical History htn, chf, dm, dvt bilat, bilat PE, kidney stones, copd, neuropathy, afib GI bleed due to NSAIDs cont protonix,egd negative, case dw GI c scope- showed no source of bleeding " 1. 6 mm sessile descending colon polyp, hot biopsied. 2. Otherwise normal colon, with no bleeding source." recommend pill cam as outpatient if he rebleeds NETO (acute kidney injury), vasomotor nephropathy IV fluids for now Monitor BUN and creatinine Insulin dependent diabetes mellitus optimize insulins ) Hypertension optimize bp meds Atrial fibrillation with RVR eliquis resumed, rate control meds COPD (chronic obstructive pulmonary disease) Continue Combivent DVT prophylaxis On SCDs and GI prophylaxis History Interval history: Review of systems Constitutional: No fevers, no malaise, no joint pains CVS: No chest pain, no orthopnea, no dyspnea on exertion, no pedal edema GI: No abdominal pain, Respiratory: no wheezing, no coughing Hospitalist Physical - Physical exam Narrative exam: General.: Appears well, no distress, nontoxic HEENT: Moist mucous membranes, extraocular muscles intact, no lymphadenopathy Neck: supple Cardiac: S1-S2 heard Lungs: clear to auscultation bilaterally Abdomen: soft , nontender, nondistended, bowel sounds positive Extremities: no edema clubbing or cyanosis Skin: no rash or lesions Neurologic: no gross focal deficits Psych: calm, and cooperative - Constitutional Vitals: Temp Pulse Resp BP Pulse Ox 98.0 F 85 20 116/73 98 09/28/18 07:24 09/28/18 09:49 09/28/18 07:24 09/28/18 09:49 09/28/18 07:24 General appearance: Present: no acute distress, well-nourished Results - Labs CBC & Chem 7: 09/26/18 18:57 09/26/18 18:57 Labs: Laboratory Last Values WBC 7.6 K/mm3 (4.5-11.0) 09/26/18 18:57 RBC 4.33 M/mm3 (3.65-5.03) 09/26/18 18:57 Hgb 10.2 gm/dl (11.8-15.2) L 09/26/18 18:57 Hct 31.7 % (35.5-45.6) L 09/26/18 18:57 MCV 73 fl (84-94) L 09/26/18 18:57 MCH 24 pg (28-32) L 09/26/18 18:57 MCHC 32 % (32-34) 09/26/18 18:57 RDW 19.4 % (13.2-15.2) H 09/26/18 18:57 Plt Count 124 K/mm3 (140-440) L 09/26/18 18:57 Lymph % (Auto) 13.0 % (13.4-35.0) L 09/26/18 18:57 [place] % (Auto) 12.2 % (0.0-7.3) H 09/26/18 18:57 Eos % (Auto) 0.3 % (0.0-4.3) 09/26/18 18:57 Baso % (Auto) 0.3 % (0.0-1.8) 09/26/18 18:57 Lymph # 1.0 K/mm3 (1.2-5.4) L 09/26/18 18:57 [place] # 0.9 K/mm3 (0.0-0.8) H 09/26/18 18:57 Eos # 0.0 K/mm3 (0.0-0.4) 09/26/18 18:57 Baso # 0.0 K/mm3 (0.0-0.1) 09/26/18 18:57 Seg Neutrophils % 74.2 % (40.0-70.0) H 09/26/18 18:57 Seg Neutrophils # 5.6 K/mm3 (1.8-7.7) 09/26/18 18:57 PT 15.2 Sec. (12.2-14.9) H 09/22/18 10:37 INR 1.13 (0.87-1.13) 09/22/18 10:37 APTT 27.5 Sec. (24.2-36.6) 09/22/18 10:37 Sodium 141 mmol/L (137-145) 09/26/18 18:57 Potassium 3.6 mmol/L (3.6-5.0) 09/26/18 18:57 Chloride 101.8 mmol/L (98-107) 09/26/18 18:57 Carbon Dioxide 26 mmol/L (22-30) 09/26/18 18:57 17 mmol/L 09/26/18 18:57 BUN 14 mg/dL (9-20) 09/26/18 18:57 1.4 mg/dL (0.8-1.5) 09/26/18 18:57 Estimated GFR > 60 ml/min 09/26/18 18:57 10 % 09/26/18 18:57 Glucose 118 mg/dL (75-100) H 09/26/18 18:57 POC Glucose 91 (70-105) 09/28/18 11:50 6.2 % (4-6) H 09/22/18 22:25 Lactic Acid 1.20 mmol/L (0.7-2.0) 09/22/18 15:04 Calcium 8.9 mg/dL (8.4-10.2) 09/26/18 18:57 0.60 mg/dL (0.1-1.2) 09/23/18 02:00 < 0.2 mg/dL (0-0.2) 09/22/18 12:31 0.1 mg/dL 09/22/18 12:31 AST 11 units/L (5-40) 09/23/18 02:00 ALT 7 units/L (7-56) 09/23/18 02:00 81 units/L (35-129) 09/23/18 02:00 < 0.010 ng/mL (0.00-0.029) 09/24/18 05:17 6.7 g/dL (6.3-8.2) 09/23/18 02:00 3.6 g/dL (3.9-5) L 09/23/18 02:00 1.2 % 09/23/18 02:00 Blood Type O POSITIVE 09/22/18 10:37 Antibody Screen Negative 09/22/18 10:37 Active Medications - Current Medications Current Medications: Generic Name Dose Route Start Last Admin Trade Name Freq PRN Reason Stop Dose Admin Acetaminophen 650 mg 09/22/18 22:03 09/26/18 09:24 Tylenol PO 650 mg Q4H PRN Administration Pain MILD(1-3)/Fever >100.5/LOPEZ Albuterol 2.5 mg 09/22/18 22:17 Proventil IH Q3HRT PRN Shortness Of Breath Apixaban 5 mg 09/26/18 22:00 09/28/18 09:48 Eliquis PO 5 mg BID JERRY Administration Protocol Carvedilol 25 mg 09/22/18 22:00 09/28/18 09:49 Coreg PO Not Given BID JERRY Clonidine HCl 0.2 mg 09/23/18 10:00 09/23/18 16:25 Catapres-Tts Patch TD 0.2 mg Mo JERRY Administration Colchicine 0.6 mg 09/27/18 12:00 09/28/18 09:46 Colchicine PO 0.6 mg QDAY JERRY Administration Dextrose 50 ml 09/25/18 15:49 D50w (25gm) Syringe IV PRN PRN Hypoglycemia Diclofenac Sodium 0.4 applic 09/26/18 22:00 09/28/18 09:52 Diclofenac 1% TP 0.4 applic QID JERYR Administration Hydralazine HCl 10 mg 09/22/18 22:01 Apresoline IV Q4HR PRN Blood Pressure Hydromorphone HCl 0.5 mg 09/22/18 22:03 Dilaudid IV Q3H PRN Pain , Severe (7-10) Insulin Glargine 10 units 09/26/18 22:00 Lantus SUB-Q QHS JERRY Insulin Human Lispro 0 unit 09/25/18 16:30 09/28/18 09:00 Humalog SUB-Q 2 unit ACHS JERRY Administration Protocol Insulin Human Lispro 5 unit 09/27/18 07:30 09/28/18 09:00 Humalog SUB-Q 5 unit AC JERRY Administration Meclizine HCl 25 mg 09/26/18 19:07 Antivert PO Q8H PRN Vertigo Miscellaneous Medication 1 applic 09/26/18 18:15 Urea [Ureacin-20 Cream] TP DAILY JERRY Morphine Sulfate 2 mg 09/22/18 22:03 09/25/18 22:47 Morphine IV 2 mg Q4H PRN Administration Pain, Moderate (4-6) Ondansetron HCl 4 mg 09/22/18 22:03 Zofran IV Q8H PRN Nausea And Vomiting Pantoprazole Sodium 40 mg 09/26/18 10:00 09/28/18 09:48 Protonix PO 40 mg DAILY JERRY Administration Prednisone 20 mg 09/26/18 20:00 09/28/18 09:48 Deltasone PO 20 mg QDAY JERRY Administration Pregabalin 50 mg 09/26/18 22:00 09/28/18 09:47 Lyrica PO 50 mg BID JERRY Administration Sodium Chloride 10 ml 09/22/18 23:00 09/28/18 09:50 Sodium Chloride Flush Syringe 10 Ml IV 10 ml BID JERRY Administration Sodium Chloride 10 ml 09/22/18 22:03 Sodium Chloride Flush Syringe 10 Ml IV PRN PRN LINE FLUSH Tamsulosin HCl 0.4 mg 09/26/18 20:00 09/28/18 09:48 Flomax PO 0.4 mg QDAY JERRY Administration Tramadol HCl 50 mg 09/26/18 19:02 Ultram PO Q6H PRN Pain, Moderate (4-6) Nutrition/Malnutrition Assess - Dietary Evaluation Nutrition/Malnutrition Findings: Nutrition Notes Start: 09/27/18 17:32 Freq: Status: Active Protocol: Document 09/27/18 17:32 RM (Rec: 09/27/18 17:40 RM [id number]) Nutrition Notes Need for Assessment generated from: LOS Initial or Follow up Assessment Current Diagnosis Acute Kidney Injury,COPD, Diabetes,Hypertension Other Pertinent Diagnosis GI bleed Current Diet Regular Labs/Tests Reviewed Pertinent Medications Reviewed Height 6 ft 4 in Weight 115.5 kg [place] Body Weight (kg) 91.81 BMI 30.9 Subjective/Other Information Screened for LOS. Pt stated that his appetite is "so so" and that he ate 1/3 of his breakfast. Percent of energy/protein needs met: 37%/28% Burn Absent Trauma Absent #1 Nutrition Diagnosis Inadequate oral intake Etiology decreased appetite As Evidenced by Signs and Symptoms pt statement that he ate 1/3 of his breakfast Is patient on ventilator? No Is Patient Ambulatory and/or Out of Bed No REE-([facility]-confined to bed) 2425.140 Kcal/Kg value to use for calculation 18 Approximate Energy Requirements Using 2079 kcal/Kg Calculation Used for Recommendations Kcal/kg Additional Notes Protein Needs: 104-135g (1-1. 3g/kg 104 kg adjBW) Fluid Needs: 1 ml/kcal Nutrition Intervention Change Diet Order: Cardiac/Consistent CHO Add Supplement/Snack (indicate name/kcal Glucerna [place], Gluerna 1 /protein ) daily Provides kCal: 220 Provides Protein (gm) 10 Goal #1 Meet at least 75% of calorie and protein needs via PO and ONS intakes Anticipated Discharge Needs: Cardiac/Consistent CHO diet Follow-Up By: 10/02/18 Additional Comments Follow PO and ONS intakes
[2018-09-28 13:35] VITALS: BP 147/83
== END 2018-09-28 16:20 | disposition home health service (06) | DRG 378 ==
LOC: ED 10:17 → 4A 13:30 → 2B-ACE 09-25 14:59
PROVIDERS: ADMIT Internal Medicine; ATTEND Internal Medicine
PROC: 0DJ08ZZ Inspection of Upper Intestinal Tract, Via Natural or Artificial Opening Endoscopic (ICD-10-PCS; principal; 2018-09-24)
PROC: 0DBM8ZZ Excision of Descending Colon, Via Natural or Artificial Opening Endoscopic (ICD-10-PCS; 2018-09-25)
DX: K92.2 Gastrointestinal hemorrhage, unspecified (principal); N17.9 Acute kidney failure, unspecified; I48.91 Unspecified atrial fibrillation; I50.9 Heart failure, unspecified; I11.0 Hypertensive heart disease with heart failure; K63.5 Polyp of colon; J44.9 Chronic obstructive pulmonary disease, unspecified; D64.9 Anemia, unspecified; T39.395A Adverse effect of other nonsteroidal anti-inflammatory drugs [NSAID], initial encounter; Y92.89 Other specified places as the place of occurrence of the external cause; N40.0 Benign prostatic hyperplasia without lower urinary tract symptoms; E11.42 Type 2 diabetes mellitus with diabetic polyneuropathy; Z86.711 Personal history of pulmonary embolism; Z86.718 Personal history of other venous thrombosis and embolism; Z87.891 Personal history of nicotine dependence; Z79.4 Long term (current) use of insulin; Z79.01 Long term (current) use of anticoagulants
CPT/HCPCS: 36415; 80048; 80053; 80076; 82140; 82271; 82962; 83036; 84484; 85014; 85018; 85025; 85610; 85730; 86850; 86900; 86901; 88305; 93005; 93010; 93970; 94640; 94760; G0378; C9113; J0360; J1815; J2270; J2704; J7030; J7512

== ENCOUNTER 2018-10-04 09:15 | Inpatient (IN) | payer MEDICARE ==
[2018-10-04] MEDS ORDERED: NACL 0.9% 1000 ML 1,000 ML ONE (10:06)
[2018-10-04] MEDS ORDERED: CARDIZEM ONE (10:06)
[2018-10-04] MEDS ORDERED: NACL 0.9% 1000 ML 1,000 ML IV ONE (10:08)
[2018-10-04] MEDS ORDERED: CARDIZEM IV ONE (10:08)
--- NOTE | 2018-10-04 10:10 | Emergency Department Report ---
ED General Adult HPI - General Chief complaint: Back Pain/Injury Stated complaint: BACK PAIN Time Seen by Provider: 10/04/18 09:56 Source: patient Mode of arrival: Stretcher Limitations: No Limitations - History of Present Illness Initial comments: Patient is a 68-year-old male that presents emergency with lower back pain. Patient states lower back pain radiates to bilateral hips. Patient states that he is not having chest pain. Patient denies shortness of breath. In triage patient is found to have an elevated heart rate. Patient states she has a history of A. fib with RVR. Patient states he is always in A. fib. Patient states she also has a history of CHF, COPD, hypertension and he had a DVT in his right leg in the past. Patient states he is on blood thinners for the DVT. -: Sudden Location: back Radiation: other (hips) Severity scale (0 -10): 10 Consistency: constant Improves with: rest Worsens with: movement Associated Symptoms: denies: confusion, chest pain, cough, diaphoresis, fever/chills, headaches, loss of appetite, malaise, nausea/vomiting, rash, seizure, shortness of breath, syncope, weakness Treatments Prior to Arrival: none - Related Data Home Medications Medication Instructions Recorded Confirmed Last Taken Acetaminophen [Acetaminophen TAB] 500 mg PO TID PRN 07/30/18 10/04/18 Unknown Diclofenac 1% [Diclofenac 1% 2 gm TP QID 07/30/18 10/04/18 Unknown topical gel] Insulin Aspart [NovoLOG 100 5 units SUB-Q TIDAC 07/30/18 10/04/18 Unknown UNITS/ML VIAL] Insulin Glargine [Lantus VIAL] 10 units SUB-Q QHS 07/30/18 10/04/18 Unknown Ipratropium/Albuterol Sulfate 1 puff IH BID 07/30/18 10/04/18 Unknown [Combivent Respimat] Omeprazole 20 mg PO QDAY 07/30/18 10/04/18 Unknown Pregabalin [Lyrica] 50 mg PO BID 07/30/18 10/04/18 Unknown Sildenafil Citrate [Viagra] 100 mg PO PRN PRN 07/30/18 10/04/18 Unknown Tamsulosin [Flomax] 0.4 mg PO QDAY 07/30/18 10/04/18 Unknown Urea [Ureacin-20 CREAM] 1 applic TP DAILY 07/30/18 10/04/18 Unknown Previous Rx's Medication Instructions Recorded Last Taken Type Apixaban [Eliquis] 5 mg PO BID #60 tablet 08/04/18 Unknown Rx Carvedilol [Coreg] 25 mg PO BID tablet 08/04/18 Unknown Rx traMADol [Ultram 50 MG tab] 50 mg PO Q6HR PRN #20 tablet 08/04/18 Unknown Rx Meclizine HCl [Meclizine CHEW] 25 mg PO Q8HR PRN #30 tab 09/06/18 Unknown Rx Colchicine 0.6 mg PO QDAY #30 capsule 09/28/18 Unknown Rx Pantoprazole [Protonix TAB] 40 mg PO DAILY #30 tablet 09/28/18 Unknown Rx oxyCODONE /ACETAMINOPHEN [Percocet 1 tab PO Q6HR PRN #14 tablet 09/28/18 Unknown Rx 5/325] predniSONE [Deltasone] 20 mg PO QDAY #7 tablet 09/28/18 Unknown Rx Allergies Allergy/AdvReac Type Severity Reaction Status Date / Time No Known Allergies Allergy Verified 05/05/18 23:54 ED Review of Systems ROS: Stated complaint: BACK PAIN Other details as noted in HPI Constitutional: denies: chills, fever Eyes: denies: eye pain, eye discharge, vision change ENT: denies: ear pain, throat pain Respiratory: denies: cough, shortness of breath, wheezing Cardiovascular: denies: chest pain, palpitations Endocrine: no symptoms reported Gastrointestinal: denies: abdominal pain, nausea, diarrhea Genitourinary: denies: urgency, dysuria Musculoskeletal: back pain. denies: joint swelling, arthralgia Skin: denies: rash, lesions Neurological: denies: headache, weakness, paresthesias Psychiatric: denies: anxiety, depression Hematological/Lymphatic: denies: easy bleeding, easy bruising ED Past Medical Hx - Past Medical History Previous Medical History?: Yes Hx Hypertension: Yes Hx Congestive Heart Failure: Yes Hx Diabetes: Yes Hx Deep Vein Thrombosis: Yes (both legs) Hx Pulmonary Embolism: Yes ([facility] lungs) Hx Kidney Stones: Yes Hx COPD: Yes Additional medical history: neuropathy. a-fib - Surgical History Past Surgical History?: Yes Additional Surgical History: neck and back surgery 2011 - Family History Family history: no significant - Social History Smoking Status: Former Smoker Substance Use Type: None - Medications Home Medications: Home Medications Medication Instructions Recorded Confirmed Last Taken Type Acetaminophen [Acetaminophen TAB] 500 mg PO TID PRN 07/30/18 10/04/18 Unknown History Diclofenac 1% [Diclofenac 1% 2 gm TP QID 07/30/18 10/04/18 Unknown History topical gel] Insulin Aspart [NovoLOG 100 5 units SUB-Q TIDAC 07/30/18 10/04/18 Unknown History UNITS/ML VIAL] Insulin Glargine [Lantus VIAL] 10 units SUB-Q QHS 07/30/18 10/04/18 Unknown History Ipratropium/Albuterol Sulfate 1 puff IH BID 07/30/18 10/04/18 Unknown History [Combivent Respimat] Omeprazole 20 mg PO QDAY 07/30/18 10/04/18 Unknown History Pregabalin [Lyrica] 50 mg PO BID 07/30/18 10/04/18 Unknown History Sildenafil Citrate [Viagra] 100 mg PO PRN PRN 07/30/18 10/04/18 Unknown History Tamsulosin [Flomax] 0.4 mg PO QDAY 07/30/18 10/04/18 Unknown History Urea [Ureacin-20 CREAM] 1 applic TP DAILY 07/30/18 10/04/18 Unknown History Apixaban [Eliquis] 5 mg PO BID #60 tablet 08/04/18 10/04/18 Unknown Rx Carvedilol [Coreg] 25 mg PO BID tablet 08/04/18 10/04/18 Unknown Rx traMADol [Ultram 50 MG tab] 50 mg PO Q6HR PRN #20 tablet 08/04/18 10/04/18 Unknown Rx Meclizine HCl [Meclizine CHEW] 25 mg PO Q8HR PRN #30 tab 09/06/18 10/04/18 Unknown Rx Colchicine 0.6 mg PO QDAY #30 capsule 09/28/18 10/04/18 Unknown Rx Pantoprazole [Protonix TAB] 40 mg PO DAILY #30 tablet 09/28/18 10/04/18 Unknown Rx oxyCODONE /ACETAMINOPHEN [Percocet 1 tab PO Q6HR PRN #14 tablet 09/28/18 10/04/18 Unknown Rx 5/325] predniSONE [Deltasone] 20 mg PO QDAY #7 tablet 09/28/18 10/04/18 Unknown Rx ED Physical Exam - General Limitations: No Limitations General appearance: alert, in no apparent distress - Head Head exam: Present: atraumatic, normocephalic - Eye Eye exam: Present: normal appearance - ENT ENT exam: Present: mucous membranes moist - Neck Neck exam: Present: normal inspection - Respiratory Respiratory exam: Present: normal lung sounds bilaterally. Absent: respiratory distress, wheezes, rales - Cardiovascular Cardiovascular Exam: Present: tachycardia. Absent: systolic murmur, diastolic murmur, rubs, gallop - GI/Abdominal GI/Abdominal exam: Present: soft, normal bowel sounds. Absent: distended, tenderness, guarding - Rectal Rectal exam: Present: deferred - Extremities Exam Extremities exam: Present: normal inspection - Back Exam Back exam: Present: normal inspection, tenderness, CVA tenderness (R), CVA tenderness (L) - Neurological Exam Neurological exam: Present: alert, oriented X3 - Psychiatric Psychiatric exam: Present: normal affect, normal mood - Skin Skin exam: Present: warm, dry, intact, normal color. Absent: rash ED Course Vital Signs 10/04/18 10/04/18 10/04/18 09:20 09:54 10:00 Temperature 100.7 F H Pulse Rate 132 H 137 H 129 H Respiratory 20 18 21 Rate Blood Pressure 164/104 Blood Pressure [Right] O2 Sat by Pulse 100 96 98 Oximetry 10/04/18 10/04/18 10/04/18 10:12 10:15 10:37 Temperature Pulse Rate 132 H 103 H 126 H Respiratory 25 H 24 Rate Blood Pressure 163/95 163/95 Blood Pressure [Right] O2 Sat by Pulse 100 99 Oximetry 10/04/18 10/04/18 10/04/18 11:00 11:31 12:01 Temperature Pulse Rate 120 H 113 H 113 H Respiratory 25 H 19 27 H Rate Blood Pressure 167/101 176/101 176/101 Blood Pressure [Right] O2 Sat by Pulse 100 100 100 Oximetry 10/04/18 10/04/18 10/04/18 12:31 13:00 13:06 Temperature Pulse Rate 120 H 111 H 111 H Respiratory 36 H 23 Rate Blood Pressure 174/89 174/89 164/98 Blood Pressure [Right] O2 Sat by Pulse 95 99 Oximetry 10/04/18 14:03 Temperature Pulse Rate 96 H Respiratory 16 Rate Blood Pressure Blood Pressure 153/89 [Right] O2 Sat by Pulse 100 Oximetry - Reevaluation(s) Reevaluation #1: Patient given 20 mg Cardizem and converted. Patient's heart rate is much better. Patient will be placed on a drip. 10/04/18 10:10 Patient's heart rate better. Patient denies chest pain shortness of breath. Patient on monitoring specialist. Patient on Cardizem drip 10/04/18 10:57 Discussed all results with patient. Patient will be admitted to the hospitalist service. Patient agrees to plan of care. Patient is still complaining of back pain. Patient will be given Dilaudid 10/04/18 12:23 - Consultations Consultation #1: Hospitalist consulted for admission. Hospitalist to admit patient. Hospitalist to assume care patient. 10/04/18 12:10 ED Medical Decision Making - Lab Data Result diagrams: 10/04/18 09:44 10/04/18 09:44 - EKG Data -: EKG Interpreted by Ak EKG shows normal: axis, intervals, QRS complexes, ST-T waves Rate: tachycardia - EKG Data Interpretation: other (A. fib) - Radiology Data Radiology results: report reviewed CT ABDOMEN PELVIS WITHOUT CONTRAST: HISTORY: Back pain, flank pain. COMPARISON: 07/30/18. TECHNIQUE: Helical CT in 1.25mm intervals without IV contrast. Sagittal and coronal reconstructions. FINDINGS: Lung bases: Normal. Liver: Normal. Biliary system: There are numerous small partially calcified gallstones in the gallbladder. No biliary dilatation or inflammation. Pancreas: Normal. Spleen: Normal. Kidneys/ureters/bladder: Multiple bilateral renal cysts are identified. A 3 mm calyceal stone is identified in the mid right kidney. A 2 mm calyceal stone is identified at the superior pole left kidney. A 1 mm calyceal stone is identified at the inferior pole of the left kidney. The ureters are normal course and caliber. No obvious ureteral stones. The bladder is unremarkable. Adrenal glands: Normal. Aorta: Normal. Intestines: Normal. Appendix: Normal. Pelvic viscera: Normal. Ascites: None. Adenopathy: None. Musculoskeletal: Intact. [id number] lumbar spondylosis. IMPRESSION: Bilateral renal stones as described. No hydronephrosis. Bilateral renal cysts. Cholelithiasis. No overwhelming change is appreciated since 07/30/18. AP CHEST: HISTORY: Fever Heart size and pulmonary vessels are at the upper limits of normal or mildly increased. The lungs are clear. No evidence for infiltrate, pleural effusion or pneumothorax. The bony structures are intact. No significant change since 09/05/18. IMPRESSION: Borderline to mild cardiomegaly. Lungs clear. - Medical Decision Making Patient is a 68-year-old male presents emergency room with complaints of back pain and hip pain. Patient found to have a fever as well as be in A. fib RVR. Patient was given Cardizem and then placed on a Cardizem drip. Patient's rate improved. Patient given 200 mils cc bolus of fluids. Patient given anti biotics. Patient has sepsis protocol done. Patient's CAT scan of the abdomen shows nephrolithiasis with no other acute findings. Patient's chest x-ray shows mild cardiomegaly but no acute findings. - Differential Diagnosis A. fib Back pain. UTI. Fever. Critical Care Time: Yes Critical care attestation.: If time is entered above; I have spent that time in minutes in the direct care of this critically ill patient, excluding procedure time. Critical Care Time: 35 MINUTES ED Disposition Clinical Impression: Tachycardia, Atrial fibrillation with RVR Atrial fibrillation Qualifiers: Atrial fibrillation type: persistent Qualified Code(s): I48.1 - Persistent atrial fibrillation Fever Qualifiers: Fever type: unspecified Qualified Code(s): R50.9 - Fever, unspecified Back pain Qualifiers: Back pain location: low back pain Chronicity: acute Back pain laterality: bilateral Sciatica presence: with sciatica Sciatica laterality: bilateral scia shon Qualified Code(s): M54.42 - Lumbago with sciatica, left side Disposition: OP ADMIT IP TO THIS HOSP Is pt being admited?: Yes Does the pt Need Aspirin: No Condition: Critical Time of Disposition: 11:55
[2018-10-04] MEDS ORDERED: MAXIPIME/NS 2 GM/100 ML 2 GM/100 ML BAG IV ONE (10:11)
[2018-10-04 10:15] LABS: Bilirubin,Urine NEG (Negative); Blood,Urine SM (Negative); Color,Urine Straw (Yellow); Mucus,Urine FEW /HPF; Protein,Urine <15 mg/dL mg/dL (Negative); Urobilinogen,Urine < 2.0 mg/dL (<2.0); WBC,Urine < 1.0 /HPF (0.0-6.0)
[2018-10-04 10:18] LABS: Hematocrit 32.4 % (35.5-45.6); Hemoglobin 10.2 gm/dl (11.8-15.2); Mean Corpuscular HGB Conc 32 % (32-34); Mean Corpuscular Volume 73 fl (84-94); Platelet Count 254 K/mm3 (140-440); Red Blood Count 4.44 M/mm3 (3.65-5.03); Red Cell Distribution Width 18.8 % (13.2-15.2)
--- NOTE | 2018-10-04 10:22 | XRay Report ---
AP CHEST: HISTORY: Fever Heart size and pulmonary vessels are at the upper limits of normal or mildly increased. The lungs are clear. No evidence for infiltrate, pleural effusion or pneumothorax. The bony structures are intact. No significant change since 09/05/18. IMPRESSION: Borderline to mild cardiomegaly. Lungs clear.
--- NOTE | 2018-10-04 10:56 | Cat Scan Report ---
CT ABDOMEN PELVIS WITHOUT CONTRAST: HISTORY: Back pain, flank pain. COMPARISON: 07/30/18. TECHNIQUE: Helical CT in 1.25mm intervals without IV contrast. Sagittal and coronal reconstructions. FINDINGS: Lung bases: Normal. Liver: Normal. Biliary system: There are numerous small partially calcified gallstones in the gallbladder. No biliary dilatation or inflammation. Pancreas: Normal. Spleen: Normal. Kidneys/ureters/bladder: Multiple bilateral renal cysts are identified. A 3 mm calyceal stone is identified in the mid right kidney. A 2 mm calyceal stone is identified at the superior pole left kidney. A 1 mm calyceal stone is identified at the inferior pole of the left kidney. The ureters are normal course and caliber. No obvious ureteral stones. The bladder is unremarkable. Adrenal glands: Normal. Aorta: Normal. Intestines: Normal. Appendix: Normal. Pelvic viscera: Normal. Ascites: None. Adenopathy: None. Musculoskeletal: Intact. [id number] lumbar spondylosis. IMPRESSION: Bilateral renal stones as described. No hydronephrosis. Bilateral renal cysts. Cholelithiasis. No overwhelming change is appreciated since 07/30/18.
[2018-10-04] MEDS ORDERED: CARDIZEM/D5W 100MG/100ML 100 MG/100 ML BAG IV SCH (11:00)
[2018-10-04 11:14] LABS: Alanine Aminotransferase 11 units/L (7-56); Albumin 3.4 g/dL (3.9-5); BUN/Creatinine Ratio 8; Blood Urea Nitrogen 11 mg/dL (9-20); Hemolysis Index 0
[2018-10-04 11:46] LABS: Anisocytosis 1+; Basophils % (Manual) 0 % (0.0-1.8); Eosinophils % (Manual) 0 % (0.0-4.3); Ovalocytes Few; Poikilocytosis 1+; Tear Drop Cells Few; Total Cells Counted 100
[2018-10-04 11:47] LABS: Platelet Estimate Consistent w Auto
[2018-10-04] MEDS ORDERED: DILAUDID IV ONE (12:05)
[2018-10-04] MEDS ORDERED: LOPRESSOR IV ONE (12:23)
[2018-10-04] MEDS ORDERED: MECLIZINE HCL 25 MG PO PRN (19:12)
[2018-10-04] MEDS ORDERED: ULTRAM PO PRN (19:12)
[2018-10-04] MEDS ORDERED: TYLENOL PO PRN ×2 (19:12→19:17)
[2018-10-04] MEDS ORDERED: REGLAN IV PRN (19:17)
[2018-10-04] MEDS ORDERED: D50W (25GM) Syringe IV PRN (19:17)
[2018-10-04] MEDS ORDERED: SODIUM CHLORIDE FLUSH SYRINGE 10 ML IV PRN (19:17)
[2018-10-04] MEDS ORDERED: DILAUDID IV PRN (19:17)
[2018-10-04] MEDS ORDERED: ZOFRAN IV PRN (19:17)
[2018-10-04] MEDS ORDERED: ANTIVERT PO PRN (19:23)
--- NOTE | 2018-10-04 19:26 | History and Physical Report ---
History of Present Illness Date of examination: 10/04/18 Date of admission: 10/04/18 12:24 Chief complaint: Palpitations 1 day History of present illness: Patient is a 68-year-old male that presents emergency with lower back pain. Patient states lower back pain radiates to bilateral hips. Patient states that he is not having chest pain. Patient denies shortness of breath. In triage patient is found to have an elevated heart rate. Patient states she has a hi story of A. fib with RVR. Patient states he is always in A. fib. Patient states he also has a history of CHF, COPD, hypertension and he had a DVT in his right leg in the past. Patient states he is on blood thinners for the DVT and A fib.No fever/chills at home.Had one episode of temp in ED.No dysuria.No cough. Past Medical History Previous Medical History?: Yes Hypertension: Yes Congestive Heart Failure: Yes Diabetes: Yes Deep Vein Thrombosis: Yes (both legs) Pulmonary Embolism: Yes ([place] lungs) Kidney Stones: Yes COPD: Yes Additional medical history: neuropathy. a-fib Surgical History Past Surgical History?: Yes Additional Surgical History: neck and back surgery 2011 Family History Family history: no significant Social History Smoking Status: Former Smoker Substance Use Type: None Review of Systems ROS: Stated complaint: BACK PAIN Other details as noted in HPI Constitutional: denies: chills, fever Eyes: denies: eye pain, eye discharge, vision change ENT: denies: ear pain, throat pain Respiratory: denies: cough, shortness of breath, wheezing Cardiovascular: denies: chest pain, palpitations Endocrine: no symptoms reported Gastrointestinal: denies: abdominal pain, nausea, diarrhea Genitourinary: denies: urgency, dysuria Musculoskeletal: back pain. denies: joint swelling, arthralgia Skin: denies: rash, lesions Neurological: denies: headache, weakness, paresthesias Psychiatric: denies: anxiety, depression Hematological/Lymphatic: denies: easy bleeding, easy bruising Medications and Allergies Allergies Allergy/AdvReac Type Severity Reaction Status Date / Time No Known Allergies Allergy Verified 05/05/18 23:54 Home Medications Medication Instructions Recorded Confirmed Last Taken Type Acetaminophen [Acetaminophen TAB] 500 mg PO TID PRN 07/30/18 10/04/18 Unknown History Diclofenac 1% [Diclofenac 1% 2 gm TP QID 07/30/18 10/04/18 Unknown History topical gel] Insulin Aspart [NovoLOG 100 5 units SUB-Q TIDAC 07/30/18 10/04/18 Unknown History UNITS/ML VIAL] Insulin Glargine [Lantus VIAL] 10 units SUB-Q QHS 07/30/18 10/04/18 Unknown History Ipratropium/Albuterol Sulfate 1 puff IH BID 07/30/18 10/04/18 Unknown History [Combivent Respimat] Omeprazole 20 mg PO QDAY 07/30/18 10/04/18 Unknown History Pregabalin [Lyrica] 50 mg PO BID 07/30/18 10/04/18 Unknown History Sildenafil Citrate [Viagra] 100 mg PO PRN PRN 07/30/18 10/04/18 Unknown History Tamsulosin [Flomax] 0.4 mg PO QDAY 07/30/18 10/04/18 Unknown History Urea [Ureacin-20 CREAM] 1 applic TP DAILY 07/30/18 10/04/18 Unknown History Apixaban [Eliquis] 5 mg PO BID #60 tablet 08/04/18 10/04/18 Unknown Rx Carvedilol [Coreg] 25 mg PO BID tablet 08/04/18 10/04/18 Unknown Rx traMADol [Ultram 50 MG tab] 50 mg PO Q6HR PRN #20 tablet 08/04/18 10/04/18 Unknown Rx Meclizine HCl [Meclizine CHEW] 25 mg PO Q8HR PRN #30 tab 09/06/18 10/04/18 Unknown Rx Colchicine 0.6 mg PO QDAY #30 capsule 09/28/18 10/04/18 Unknown Rx Pantoprazole [Protonix TAB] 40 mg PO DAILY #30 tablet 09/28/18 10/04/18 Unknown Rx oxyCODONE /ACETAMINOPHEN [Percocet 1 tab PO Q6HR PRN #14 tablet 09/28/18 Unknown Rx 5/325] predniSONE [Deltasone] 20 mg PO QDAY #7 tablet 09/28/18 10/04/18 Unknown Rx Active Meds: Active Medications Diltiazem HCl (Cardizem/D5w 100mg/100ml) 100 mg in 100 mls @ 5 mls/hr IV TITR [facility]; Protocol Last Admin: 10/04/18 10:42 Dose: 5 mg/hr, 5 mls/hr Documented by: Exam - Constitutional Vitals: Temp Pulse Resp BP Pulse Ox 98.4 F 88 24 156/95 98 10/04/18 16:11 10/04/18 16:11 10/04/18 16:11 10/04/18 16:11 10/04/18 16:11 General appearance: Present: no acute distress, well-nourished - EENT Eyes: Present: PERRL ENT: hearing intact, clear oral mucosa - Neck Neck: Present: supple, normal ROM - Respiratory Respiratory effort: normal Respiratory: bilateral: CTA - Cardiovascular Heart rate: 120 Rhythm: irregularly irregular Heart Sounds: Present: S1 & S2. Absent: rub, click - Extremities Extremities: no ischemia, pulses intact, pulses symmetrical, No edema Peripheral Pulses: within normal limits - Abdominal General gastrointestinal: Present: soft, non-tender, non-distended, normal bowel sounds Male genitourinary: Present: normal - Rectal Rectal Exam: deferred - Integumentary Integumentary: Present: clear, warm, dry - Musculoskeletal Musculoskeletal: gait normal, strength equal bilaterally - Psychiatric Psychiatric: appropriate mood/affect, intact judgment & insight - Neurologic Neurologic: CNII-XII intact, moves all extremities - Allied Health Allied health notes reviewed: nursing, case management Results - Labs CBC & Chem 7: 10/04/18 09:44 10/04/18 09:44 Labs: Laboratory Last Values WBC 8.0 K/mm3 (4.5-11.0) 10/04/18 09:44 RBC 4.44 M/mm3 (3.65-5.03) 10/04/18 09:44 Hgb 10.2 gm/dl (11.8-15.2) L 10/04/18 09:44 Hct 32.4 % (35.5-45.6) L 10/04/18 09:44 MCV 73 fl (84-94) L 10/04/18 09:44 MCH 23 pg (28-32) L 10/04/18 09:44 MCHC 32 % (32-34) 10/04/18 09:44 RDW 18.8 % (13.2-15.2) H 10/04/18 09:44 Plt Count 254 K/mm3 (140-440) 10/04/18 09:44 Total Counted 100 10/04/18 09:44 Seg Neuts % (Manual) 79.0 % (40.0-70.0) H 10/04/18 09:44 0 % 10/04/18 09:44 8.0 % (13.4-35.0) L 10/04/18 09:44 Reactive Lymphs % (Man) 0 % 10/04/18 09:44 12.0 % (0.0-7.3) H 10/04/18 09:44 0 % (0.0-4.3) 10/04/18 09:44 0 % (0.0-1.8) 10/04/18 09:44 1.0 % 10/04/18 09:44 0 % 10/04/18 09:44 0 % 10/04/18 09:44 0 % 10/04/18 09:44 Nucleated RBC % Not Reportable 10/04/18 09:44 Seg Neutrophils # Man 6.3 K/mm3 (1.8-7.7) 10/04/18 09:44 Band Neutrophils # 0.0 K/mm3 10/04/18 09:44 0.6 K/mm3 (1.2-5.4) L 10/04/18 09:44 Abs React Lymphs (Man) 0.0 K/mm3 10/04/18 09:44 1.0 K/mm3 (0.0-0.8) H 10/04/18 09:44 0.0 K/mm3 (0.0-0.4) 10/04/18 09:44 0.0 K/mm3 (0.0-0.1) 10/04/18 09:44 0.1 K/mm3 10/04/18 09:44 0.0 K/mm3 10/04/18 09:44 0.0 K/mm3 10/04/18 09:44 Blast Cells # 0.0 K/mm3 10/04/18 09:44 WBC Morphology Not Reportable 10/04/18 09:44 Hypersegmented Neuts Not Reportable 10/04/18 09:44 Hyposegmented Neuts Not Reportable 10/04/18 09:44 Hypogranular Neuts Not Reportable 10/04/18 09:44 Not Reportable 10/04/18 09:44 Not Reportable 10/04/18 09:44 Not Reportable 10/04/18 09:44 Not Reportable 10/04/18 09:44 Not Reportable 10/04/18 09:44 Not Reportable 10/04/18 09:44 Consistent w auto 10/04/18 09:44 Not Reportable 10/04/18 09:44 Plt Clumps, EDTA Not Reportable 10/04/18 09:44 Not Reportable 10/04/18 09:44 Not Reportable 10/04/18 09:44 Not Reportable 10/04/18 09:44 Plt Morphology Comment Not Reportable 10/04/18 09:44 RBC Morphology Not Reportable 10/04/18 09:44 Dimorphic RBCs Not Reportable 10/04/18 09:44 Not Reportable 10/04/18 09:44 Not Reportable 10/04/18 09:44 1+ 10/04/18 09:44 1+ 10/04/18 09:44 Not Reportable 10/04/18 09:44 Not Reportable 10/04/18 09:44 Not Reportable 10/04/18 09:44 Not Reportable 10/04/18 09:44 Not Reportable 10/04/18 09:44 Not Reportable 10/04/18 09:44 Few 10/04/18 09:44 Few 10/04/18 09:44 Not Reportable 10/04/18 09:44 Not Reportable 10/04/18 09:44 Not Reportable 10/04/18 09:44 Not Reportable 10/04/18 09:44 Not Reportable 10/04/18 09:44 Not Reportable 10/04/18 09:44 Few 10/04/18 09:44 Acanthocytes (Spur) Not Reportable 10/04/18 09:44 Rouleaux Not Reportable 10/04/18 09:44 Not Reportable 10/04/18 09:44 Not Reportable 10/04/18 09:44 Not Reportable 10/04/18 09:44 Not Reportable 10/04/18 09:44 Hem Pathologist Commnt No 10/04/18 09:44 Sodium 142 mmol/L (137-145) 10/04/18 09:44 Potassium 3.7 mmol/L (3.6-5.0) 10/04/18 09:44 Chloride 104.6 mmol/L (98-107) 10/04/18 09:44 Carbon Dioxide 27 mmol/L (22-30) 10/04/18 09:44 14 mmol/L 10/04/18 09:44 BUN 11 mg/dL (9-20) 10/04/18 09:44 1.3 mg/dL (0.8-1.5) 10/04/18 09:44 Estimated GFR > 60 ml/min 10/04/18 09:44 8 % 10/04/18 09:44 Glucose 127 mg/dL (75-100) H 10/04/18 09:44 POC Glucose 135 (70-105) H 10/04/18 15:58 Lactic Acid 0.70 mmol/L (0.7-2.0) 10/04/18 13:16 Calcium 9.0 mg/dL (8.4-10.2) 10/04/18 09:44 0.50 mg/dL (0.1-1.2) 10/04/18 09:44 AST 15 units/L (5-40) 10/04/18 09:44 ALT 11 units/L (7-56) 10/04/18 09:44 68 units/L (35-129) 10/04/18 09:44 < 0.010 ng/mL (0.00-0.029) 10/04/18 09:44 7.9 g/dL (6.3-8.2) 10/04/18 09:44 3.4 g/dL (3.9-5) L 10/04/18 09:44 0.8 % 10/04/18 09:44 Straw (Yellow) 10/04/18 09:53 Clear (Clear) 10/04/18 09:53 6.0 (5.0-7.0) 10/04/18 09:53 Ur Specific [place] 1.009 (1.003-1.030) 10/04/18 09:53 <15 mg/dl mg/dL (Negative) 10/04/18 09:53 Neg mg/dL (Negative) 10/04/18 09:53 Neg mg/dL (Negative) 10/04/18 09:53 Sm (Negative) 10/04/18 09:53 Neg (Negative) 10/04/18 09:53 Neg (Negative) 10/04/18 09:53 < 2.0 mg/dL (<2.0) 10/04/18 09:53 Ur Leukocyte Esterase Neg (Negative) 10/04/18 09:53 < 1.0 /HPF (0.0-6.0) 10/04/18 09:53 3.0 /HPF (0.0-6.0) 10/04/18 09:53 Few /HPF 10/04/18 09:53 Short CBC 10/04/18 Range/Units 09:44 WBC 8.0 (4.5-11.0) K/mm3 Hgb 10.2 L (11.8-15.2) gm/dl Hct 32.4 L (35.5-45.6) % Plt Count 254 (140-440) K/mm3 BMP 10/04/18 09:44 Sodium 142 Potassium 3.7 Chloride 104.6 Carbon Dioxide 27 BUN 11 Creatinine 1.3 Glucose 127 H Calcium 9.0 Cardiac Enzymes 10/04/18 Range/Units 09:44 Troponin T < 0.010 (0.00-0.029) ng/mL Liver Function 10/04/18 Range/Units 09:44 Total Bilirubin 0.50 (0.1-1.2) mg/dL AST 15 (5-40) units/L ALT 11 (7-56) units/L Alkaline Phosphatase 68 (35-129) units/L Albumin 3.4 L (3.9-5) g/dL Urine 10/04/18 Range/Units 09:53 Urine Color Straw (Yellow) Urine pH 6.0 (5.0-7.0) Ur Specific [place] 1.009 (1.003-1.030) Urine Protein <15 mg/dl (Negative) mg/dL Urine Glucose (UA) Neg (Negative) mg/dL - Imaging and Cardiology EKG: report reviewed (Afib with rvr) Imaging and Cardiology: CT abdomen IMPRESSION: Bilateral renal stones as described. No hydronephrosis. Bilateral renal cysts. Cholelithiasis. No overwhelming change is appreciated since 07/30/18. CXR IMPRESSION: Borderline to mild cardiomegaly. Lungs clear. Assessment and Plan Advance Directives: Yes (Full code) VTE prophylaxis?: Chemical Plan of care discussed with patient/family: Yes - Patient Problems (1) Atrial fibrillation with RVR Current Visit: Yes Status: Acute Plan to address problem: Started on Cardizem drip To transition to PO Cardizem when HR stable Cardiology consult On Eliquis (2) Fever Current Visit: Yes Status: Acute Qualifiers: Fever type: unspecified Qualified Code(s): R50.9 - Fever, unspecified Plan to address problem: Check cultures--Blood and Urine No source of infection Has Kidney stones IV Rocephin initiated which can be descalated (3) IDDM (insulin dependent diabetes mellitus) Current Visit: Yes Status: Chronic Plan to address problem: Cont Home insulin and coverage Check A1c (4) COPD (chronic obstructive pulmonary disease) Current Visit: Yes Status: Chronic Qualifiers: Emphysema type: unspecified Plan to address problem: Cont Combivent Inhaler (5) Acute exacerbation of chronic low back pain Current Visit: Yes Status: Acute Plan to address problem: Symptomatic treatment CT LS spine ordered (6) Peripheral neuropathy Current Visit: Yes Status: Chronic Qualifiers: Peripheral neuropathy type: polyneuropathy, unspecified Qualified Code(s): G62.9 - Polyneuropathy, unspecified Plan to address problem: COnt Gabapentin (7) BPH (benign prostatic hyperplasia) Current Visit: Yes Status: Chronic Qualifiers: Lower urinary tract symptom detail: unspecified Plan to address problem: Cont Flomax (8) Hypertension Current Visit: No Status: Chronic Qualifiers: Hypertension type: essential hypertension Qualified Code(s): I10 - Essential (primary) hypertension Plan to address problem: COnt antihypertensives (9) Gout Current Visit: Yes Status: Inactive Plan to address problem: Cont ALlopurinol Ciscontinue colchicine (10) GERD (gastroesophageal reflux disease) Current Visit: Yes Status: Chronic Qualifiers: Esophagitis presence: without esophagitis Qualified Code(s): K21.9 - Gastro-esophageal reflux disease without esophagitis Plan to address problem: On PPI's (11) DVT prophylaxis Current Visit: No Status: Acute Plan to address problem: On Eliquis and GI prophylaxis
[2018-10-04] MEDS ORDERED: COLCHICINE PO SCH (20:00)
[2018-10-04] MEDS ORDERED: NACL 0.9% 1000 ML 1,000 ML IV SCH (20:00)
[2018-10-04] MEDS: CARDIZEM PO SCH ×2 (20:20→23:54)
[2018-10-04] MEDS: FLOMAX PO SCH (20:20)
[2018-10-04] MEDS: DELTASONE PO SCH (20:20)
[2018-10-04] MEDS ORDERED: PROVENTIL IH PRN (20:41)
[2018-10-04] MEDS: ROCEPHIN/NS 2 GM/100 ML 2 GM/100 ML BAG IV SCH (20:48)
[2018-10-04] MEDS: PEPCID PO SCH (21:34)
[2018-10-04] MEDS: COREG PO SCH (21:34)
[2018-10-04] MEDS: ELIQUIS PO SCH (21:34)
[2018-10-04] MEDS: LYRICA PO SCH (21:34)
[2018-10-04] MEDS: HumaLOG SUB-Q SCH (21:35)
[2018-10-04] MEDS: SODIUM CHLORIDE FLUSH SYRINGE 10 ML IV SCH (21:36)
[2018-10-04] MEDS ORDERED: NON-FORMULARY (Ipratropium/Albuterol Sulfate [Combivent Respimat] 1 PUFF) IH SCH (22:00)
[2018-10-04] MEDS ORDERED: NON-FORMULARY (Pregabalin [Lyrica] 50 MG) PO SCH (22:00)
[2018-10-04] MEDS: PERCOCET 5/325 PO PRN (22:49)
[2018-10-04] MEDS: PROTONIX PO SCH (22:50)
[2018-10-04] MEDS: LANTUS SUB-Q SCH (22:51)
[2018-10-05] MEDS ORDERED: DUONEB *Not for PRN Use IH SCH (02:00)
[2018-10-05] MEDS: CARDIZEM PO SCH ×3 (05:05→19:02)
[2018-10-05 07:20] LABS: Basophils % (Auto) 0.5 % (0.0-1.8); Eosinophils % (Auto) 0.1 % (0.0-4.3); Hematocrit 30.9 % (35.5-45.6); Hemoglobin 9.7 gm/dl (11.8-15.2); Lymphocytes # (Auto) 0.8 K/mm3 (1.2-5.4); Lymphocytes % (Auto) 9.7 % (13.4-35.0); Mean Corpuscular HGB Conc 31 % (32-34); Mean Corpuscular Volume 73 fl (84-94); Monocytes # (Auto) 0.9 K/mm3 (0.0-0.8); Monocytes % (Auto) 11.4 % (0.0-7.3); Platelet Count 227 K/mm3 (140-440); Red Blood Count 4.24 M/mm3 (3.65-5.03); Red Cell Distribution Width 18.9 % (13.2-15.2)
[2018-10-05 07:28] LABS: Albumin 2.8 g/dL (3.9-5); Calcium 8.6 mg/dL (8.4-10.2)
[2018-10-05] MEDS ORDERED: HumaLOG SUB-Q SCH (07:30)
[2018-10-05] MEDS ORDERED: INSULIN ASPART 5 UNIT SUB-Q SCH (07:30)
[2018-10-05] MEDS: DUONEB *Not for PRN Use IH SCH ×3 (07:51→20:24)
[2018-10-05] MEDS: HumaLOG SUB-Q SCH ×7 (09:15→21:11)
[2018-10-05] MEDS: COREG PO SCH ×2 (09:17→21:12)
[2018-10-05] MEDS: DELTASONE PO SCH (09:56)
[2018-10-05] MEDS: ELIQUIS PO SCH ×2 (09:57→21:12)
[2018-10-05] MEDS: LYRICA PO SCH ×2 (09:58→21:12)
[2018-10-05] MEDS: PEPCID PO SCH ×2 (09:58→21:12)
[2018-10-05] MEDS: FLOMAX PO SCH (09:58)
[2018-10-05] MEDS: SODIUM CHLORIDE FLUSH SYRINGE 10 ML IV SCH ×2 (09:58→21:13)
[2018-10-05] MEDS: PROTONIX PO SCH (09:58)
[2018-10-05] MEDS: ROCEPHIN/NS 2 GM/100 ML 2 GM/100 ML BAG IV SCH (09:59)
[2018-10-05] MEDS: PERCOCET 5/325 PO PRN ×2 (10:05→16:42)
[2018-10-05] MEDS: ZYLOPRIM PO SCH (10:05)
--- NOTE | 2018-10-05 12:21 | Consultation ---
History of Present Illness History of present illness: Patient is a 68-year-old male that presents emergency with lower back pain. Patient states lower back pain radiates to bilateral hips. Patient states that he is not having chest pain. Patient denies shortness of breath. In triage patient is found to have an elevated heart rate. Patient states she has a history of A. fib with RVR. Patient states he is always in A. fib. Patient states she also has a history of CHF, COPD, hypertension and he had a DVT in his right leg in the past. Patient states he is on blood thinners for the DVT. Patient is seen in cardiac consolidation because of atrial fibrillation and he was noted to have a heart rate between 55-80/ m. BP 150/ 90. Patient has been taking his medications at [facility]. Patient moved from [place] to [place]. Past History Past Medical History: atrial fib, DVT Past Surgical History: denies: CABG, PTCA Social history: no significant social history Family history: no significant family history Medications and Allergies Allergies Allergy/AdvReac Type Severity Reaction Status Date / Time No Known Allergies Allergy Verified 05/05/18 23:54 Home Medications Medication Instructions Recorded Confirmed Last Taken Type Acetaminophen [Acetaminophen TAB] 500 mg PO TID PRN 07/30/18 10/04/18 Unknown History Diclofenac 1% [Diclofenac 1% 2 gm TP QID 07/30/18 10/04/18 Unknown History topical gel] Insulin Aspart [NovoLOG 100 5 units SUB-Q TIDAC 07/30/18 10/04/18 Unknown History UNITS/ML VIAL] Insulin Glargine [Lantus VIAL] 10 units SUB-Q QHS 07/30/18 10/04/18 Unknown History Ipratropium/Albuterol Sulfate 1 puff IH BID 07/30/18 10/04/18 Unknown History [Combivent Respimat] Omeprazole 20 mg PO QDAY 07/30/18 10/04/18 Unknown History Pregabalin [Lyrica] 50 mg PO BID 07/30/18 10/04/18 Unknown History Sildenafil Citrate [Viagra] 100 mg PO PRN PRN 07/30/18 10/04/18 Unknown History Tamsulosin [Flomax] 0.4 mg PO QDAY 07/30/18 10/04/18 Unknown History Urea [Ureacin-20 CREAM] 1 applic TP DAILY 07/30/18 10/04/18 Unknown History Apixaban [Eliquis] 5 mg PO BID #60 tablet 08/04/18 10/04/18 Unknown Rx Carvedilol [Coreg] 25 mg PO BID tablet 08/04/18 10/04/18 Unknown Rx traMADol [Ultram 50 MG tab] 50 mg PO Q6HR PRN #20 tablet 08/04/18 10/04/18 Unknown Rx Meclizine HCl [Meclizine CHEW] 25 mg PO Q8HR PRN #30 tab 09/06/18 10/04/18 Unknown Rx Colchicine 0.6 mg PO QDAY #30 capsule 09/28/18 10/04/18 Unknown Rx Pantoprazole [Protonix TAB] 40 mg PO DAILY #30 tablet 09/28/18 10/04/18 Unknown Rx oxyCODONE /ACETAMINOPHEN [Percocet 1 tab PO Q6HR PRN #14 tablet 09/28/18 10/04/18 Unknown Rx 5/325] predniSONE [Deltasone] 20 mg PO QDAY #7 tablet 09/28/18 10/04/18 Unknown Rx Active Meds: Active Medications Acetaminophen (Tylenol) 500 mg PO TID PRN PRN Reason: Pain, Moderate (4-6) Acetaminophen (Tylenol) 650 mg PO Q4H PRN PRN Reason: Pain MILD(1-3)/Fever >100.5/LOPEZ Albuterol (Proventil) 2.5 mg IH Q3HRT PRN PRN Reason: Shortness Of Breath Albuterol/Ipratropium (Duoneb *Not For Prn Use*) 1 ampul IH TIDRT [facility] Last Admin: 10/05/18 07:51 Dose: 1 ampul Documented by: Allopurinol (Zyloprim) 100 mg PO QDAY [facility] Last Admin: 10/05/18 10:05 Dose: 100 mg Documented by: Apixaban (Eliquis) 5 mg PO BID [facility]; Protocol Last Admin: 10/05/18 09:57 Dose: 5 mg Documented by: Carvedilol (Coreg) 25 mg PO BID [facility] Last Admin: 10/05/18 09:17 Dose: Not Given Documented by: Dextrose (D50w (25gm) Syringe) 50 ml IV PRN PRN PRN Reason: Hypoglycemia Diltiazem HCl (Cardizem) 60 mg PO Q6HR [facility] Last Admin: 10/05/18 05:05 Dose: Not Given Documented by: Famotidine (Pepcid) 20 mg PO BID [facility] Last Admin: 10/05/18 09:58 Dose: 20 mg Documented by: Hydromorphone HCl (Dilaudid) 0.5 mg IV Q3H PRN PRN Reason: Pain , Severe (7-10) Diltiazem HCl (Cardizem/D5w 100mg/100ml) 100 mg in 100 mls @ 5 mls/hr IV TITR [facility]; Protocol Last Admin: 10/04/18 10:42 Dose: 5 mg/hr, 5 mls/hr Documented by: Sodium Chloride (Nacl 0.9% 1000 Ml) 1,000 mls @ 42 mls/hr IV DIRECT [facility] Last Admin: 10/04/18 20:49 Dose: 42 mls/hr Documented by: Ceftriaxone Sodium (Rocephin/Ns 2 Gm/100 Ml) 2 gm in 100 mls @ 200 mls/hr IV Q24HR [facility]; Protocol Last Admin: 10/05/18 09:59 Dose: 200 mls/hr Documented by: Insulin Glargine (Lantus) 10 units SUB-Q QHS [facility] Last Admin: 10/04/18 22:51 Dose: 10 units Documented by: Insulin Human Lispro (Humalog) 0 unit SUB-Q ACHS [facility]; Protocol Last Admin: 10/05/18 09:15 Dose: 2 unit Documented by: Insulin Human Lispro (Humalog) 5 unit SUB-Q AC [facility] Last Admin: 10/05/18 09:16 Dose: 5 unit Documented by: Meclizine HCl (Antivert) 25 mg PO Q8H PRN PRN Reason: Vertigo Metoclopramide HCl (Reglan) 10 mg IV Q6H PRN PRN Reason: Nausea And Vomiting Ondansetron HCl (Zofran) 4 mg IV Q8H PRN PRN Reason: Nausea And Vomiting Oxycodone/Acetaminophen (Percocet 5/325) 1 tab PO Q6HR PRN PRN Reason: Pain Last Admin: 10/05/18 10:05 Dose: 1 tab Documented by: Pantoprazole Sodium (Protonix) 40 mg PO DAILY [facility] Last Admin: 10/05/18 09:58 Dose: 40 mg Documented by: Prednisone (Deltasone) 20 mg PO QDAY [facility] Last Admin: 10/05/18 09:56 Dose: 20 mg Documented by: Pregabalin (Lyrica) 50 mg PO BID [facility] Last Admin: 10/05/18 09:58 Dose: 50 mg Documented by: Sodium Chloride (Sodium Chloride Flush Syringe 10 Ml) 10 ml IV BID [facility] Last Admin: 10/05/18 09:58 Dose: 10 ml Documented by: Sodium Chloride (Sodium Chloride Flush Syringe 10 Ml) 10 ml IV PRN PRN PRN Reason: LINE FLUSH Tamsulosin HCl (Flomax) 0.4 mg PO QDAY [facility] Last Admin: 10/05/18 09:58 Dose: 0.4 mg Documented by: Tramadol HCl (Ultram) 50 mg PO Q6HR PRN PRN Reason: Pain Last Admin: 10/04/18 19:35 Dose: 50 mg Documented by: Review of Systems Constitutional: no weight loss, no fever, no anorexia, no fatigue Ears, nose, mouth and throat: no epistaxis Cardiovascular: no chest pain, no orthopnea, no palpitations, no edema Respiratory: no cough, no hemoptysis, no congestion, no wheezing Gastrointestinal: no abdominal pain, no nausea, no vomiting Physical Examination Vital Signs Temp Pulse Resp BP Pulse Ox 100.7 F H 132 H 20 164/104 100 10/04/18 09:20 10/04/18 09:20 10/04/18 09:20 10/04/18 09:20 10/04/18 09:20 General appearance: no acute distress HEENT: Positive: PERRL, Normocephaly Neck: Positive: neck supple, trachea midline. Negative: JVD/HJR Cardiac: Positive: irregularly irregular. Negative: S3, S4 Lungs: Positive: clear to auscultation, Normal Breath Sounds Neuro: Positive: Grossly Intact Abdomen: Positive: Unremarkable, Soft, Active Bowel Sounds. Negative: Hepatosplenomegaly Extremities: Present: normal Results 10/05/18 06:37 10/05/18 06:37 Cardiac Enzymes 10/05/18 Range/Units 06:37 AST 10 (5-40) units/L CBC 10/05/18 Range/Units 06:37 WBC 8.3 (4.5-11.0) K/mm3 RBC 4.24 (3.65-5.03) M/mm3 Hgb 9.7 L (11.8-15.2) gm/dl Hct 30.9 L (35.5-45.6) % Plt Count 227 (140-440) K/mm3 Lymph # 0.8 L (1.2-5.4) K/mm3 [place] # 0.9 H (0.0-0.8) K/mm3 Eos # 0.0 (0.0-0.4) K/mm3 Baso # 0.0 (0.0-0.1) K/mm3 Comprehensive Metabolic Panel 10/05/18 Range/Units 06:37 Sodium 142 (137-145) mmol/L Potassium 4.3 (3.6-5.0) mmol/L Chloride 105.5 (98-107) mmol/L Carbon Dioxide 25 (22-30) mmol/L BUN 15 (9-20) mg/dL Creatinine 1.5 (0.8-1.5) mg/dL Glucose 165 H (75-100) mg/dL Calcium 8.6 (8.4-10.2) mg/dL AST 10 (5-40) units/L ALT 11 (7-56) units/L Alkaline Phosphatase 58 (35-129) units/L Total Protein 7.0 (6.3-8.2) g/dL Albumin 2.8 L (3.9-5) g/dL EKG interpretations - Telemetry EKG Rhythm: Atrial Fibrillation Assessment and Plan Atrial fibrillation with HR 55-80/m hypertension. Low back pain. Plan: Re start his Home medications.
--- NOTE | 2018-10-05 12:41 | Progress Note ---
Assessment and Plan Assessment and plan: -- Atrial fibrillation with RVR Started on Cardizem drip To transition to PO Cardizem when HR stable Cardiology consult, On Eliquis -- Fever Check cultures--Blood and Urine No source of infection, Has Kidney stones IV Rocephin initiated which can be descalated -- IDDM (insulin dependent diabetes mellitus) Cont Home insulin and coverage Check A1c -- COPD (chronic obstructive pulmonary disease) Cont Combivent Inhaler -- Acute exacerbation of chronic low back pain Symptomatic treatment CT LS spine ordered -- Peripheral neuropathy COnt Gabapentin -- BPH (benign prostatic hyperplasia) Cont Flomax -- Hypertension COnt antihypertensives -- Gout Cont ALlopurinol Ciscontinue colchicine --Severe malnutrition/hypoalbuminemia nutrition supplements and supportive care, nutrition consult if needed -- GERD (gastroesophageal reflux disease) On PPI's --- Dictation- DVT prophylaxis On Eliquis and GI prophylaxis -- Full Code Follow consults and recommendations Monitor closely and adjust management as needed Plan of care is reviewed with the patient and his nurse History Interval history: Patient seen and examined medical records reviewed Patient feels better no new complaints Vital signs noted Alert awake oriented 3 not in acute distress Hospitalist Physical - Constitutional Vitals: Temp Pulse Resp BP Pulse Ox 97.7 F 76 18 128/70 100 10/05/18 03:41 10/05/18 12:25 10/05/18 07:58 10/05/18 12:25 10/05/18 07:56 General appearance: Present: no acute distress, well-nourished - EENT Eyes: Present: PERRL, EOM intact - Neck Neck: Present: supple, normal ROM - Respiratory Respiratory effort: normal Respiratory: bilateral: diminished, negative: rales, rhonchi, wheezing - Cardiovascular Rhythm: regular Heart Sounds: Present: S1 & S2 - Extremities Extremities: no ischemia, No edema - Abdominal General gastrointestinal: soft, non-tender, non-distended, normal bowel sounds - Integumentary Integumentary: Present: clear, warm - Psychiatric Psychiatric: appropriate mood/affect, cooperative - Neurologic Neurologic: CNII-XII intact Results - Labs CBC & Chem 7: 10/05/18 06:37 10/05/18 06:37 Labs: Laboratory Last Values WBC 8.3 K/mm3 (4.5-11.0) 10/05/18 06:37 RBC 4.24 M/mm3 (3.65-5.03) 10/05/18 06:37 Hgb 9.7 gm/dl (11.8-15.2) L 10/05/18 06:37 Hct 30.9 % (35.5-45.6) L 10/05/18 06:37 MCV 73 fl (84-94) L 10/05/18 06:37 MCH 23 pg (28-32) L 10/05/18 06:37 MCHC 31 % (32-34) L 10/05/18 06:37 RDW 18.9 % (13.2-15.2) H 10/05/18 06:37 Plt Count 227 K/mm3 (140-440) 10/05/18 06:37 Lymph % (Auto) 9.7 % (13.4-35.0) L 10/05/18 06:37 [place] % (Auto) 11.4 % (0.0-7.3) H 10/05/18 06:37 Eos % (Auto) 0.1 % (0.0-4.3) 10/05/18 06:37 Baso % (Auto) 0.5 % (0.0-1.8) 10/05/18 06:37 Lymph # 0.8 K/mm3 (1.2-5.4) L 10/05/18 06:37 [place] # 0.9 K/mm3 (0.0-0.8) H 10/05/18 06:37 Eos # 0.0 K/mm3 (0.0-0.4) 10/05/18 06:37 Baso # 0.0 K/mm3 (0.0-0.1) 10/05/18 06:37 Total Counted 100 10/04/18 09:44 Seg Neutrophils % 78.3 % (40.0-70.0) H 10/05/18 06:37 Seg Neuts % (Manual) 79.0 % (40.0-70.0) H 10/04/18 09:44 0 % 10/04/18 09:44 8.0 % (13.4-35.0) L 10/04/18 09:44 Reactive Lymphs % (Man) 0 % 10/04/18 09:44 12.0 % (0.0-7.3) H 10/04/18 09:44 0 % (0.0-4.3) 10/04/18 09:44 0 % (0.0-1.8) 10/04/18 09:44 1.0 % 10/04/18 09:44 0 % 10/04/18 09:44 0 % 10/04/18 09:44 0 % 10/04/18 09:44 Nucleated RBC % Not Reportable 10/04/18 09:44 Seg Neutrophils # 6.5 K/mm3 (1.8-7.7) 10/05/18 06:37 Seg Neutrophils # Man 6.3 K/mm3 (1.8-7.7) 10/04/18 09:44 Band Neutrophils # 0.0 K/mm3 10/04/18 09:44 0.6 K/mm3 (1.2-5.4) L 10/04/18 09:44 Abs React Lymphs (Man) 0.0 K/mm3 10/04/18 09:44 1.0 K/mm3 (0.0-0.8) H 10/04/18 09:44 0.0 K/mm3 (0.0-0.4) 10/04/18 09:44 0.0 K/mm3 (0.0-0.1) 10/04/18 09:44 0.1 K/mm3 10/04/18 09:44 0.0 K/mm3 10/04/18 09:44 0.0 K/mm3 10/04/18 09:44 Blast Cells # 0.0 K/mm3 10/04/18 09:44 WBC Morphology Not Reportable 10/04/18 09:44 Hypersegmented Neuts Not Reportable 10/04/18 09:44 Hyposegmented Neuts Not Reportable 10/04/18 09:44 Hypogranular Neuts Not Reportable 10/04/18 09:44 Not Reportable 10/04/18 09:44 Not Reportable 10/04/18 09:44 Not Reportable 10/04/18 09:44 Not Reportable 10/04/18 09:44 Not Reportable 10/04/18 09:44 Not Reportable 10/04/18 09:44 Consistent w auto 10/04/18 09:44 Not Reportable 10/04/18 09:44 Plt Clumps, EDTA Not Reportable 10/04/18 09:44 Not Reportable 10/04/18 09:44 Not Reportable 10/04/18 09:44 Not Reportable 10/04/18 09:44 Plt Morphology Comment Not Reportable 10/04/18 09:44 RBC Morphology Not Reportable 10/04/18 09:44 Dimorphic RBCs Not Reportable 10/04/18 09:44 Not Reportable 10/04/18 09:44 Not Reportable 10/04/18 09:44 1+ 10/04/18 09:44 1+ 10/04/18 09:44 Not Reportable 10/04/18 09:44 Not Reportable 10/04/18 09:44 Not Reportable 10/04/18 09:44 Not Reportable 10/04/18 09:44 Not Reportable 10/04/18 09:44 Not Reportable 10/04/18 09:44 Few 10/04/18 09:44 Few 10/04/18 09:44 Not Reportable 10/04/18 09:44 Not Reportable 10/04/18 09:44 Not Reportable 10/04/18 09:44 Not Reportable 10/04/18 09:44 Not Reportable 10/04/18 09:44 Not Reportable 10/04/18 09:44 Few 10/04/18 09:44 Acanthocytes (Spur) Not Reportable 10/04/18 09:44 Rouleaux Not Reportable 10/04/18 09:44 Not Reportable 10/04/18 09:44 Not Reportable 10/04/18 09:44 Not Reportable 10/04/18 09:44 Not Reportable 10/04/18 09:44 Hem Pathologist Commnt No 10/04/18 09:44 Sodium 142 mmol/L (137-145) 10/05/18 06:37 Potassium 4.3 mmol/L (3.6-5.0) 10/05/18 06:37 Chloride 105.5 mmol/L (98-107) 10/05/18 06:37 Carbon Dioxide 25 mmol/L (22-30) 10/05/18 06:37 16 mmol/L 10/05/18 06:37 BUN 15 mg/dL (9-20) 10/05/18 06:37 1.5 mg/dL (0.8-1.5) 10/05/18 06:37 Estimated GFR 56 ml/min 10/05/18 06:37 10 % 10/05/18 06:37 Glucose 165 mg/dL (75-100) H 10/05/18 06:37 POC Glucose 172 (70-105) H 10/05/18 03:45 Lactic Acid 0.70 mmol/L (0.7-2.0) 10/04/18 13:16 Calcium 8.6 mg/dL (8.4-10.2) 10/05/18 06:37 0.40 mg/dL (0.1-1.2) 10/05/18 06:37 AST 10 units/L (5-40) 10/05/18 06:37 ALT 11 units/L (7-56) 10/05/18 06:37 58 units/L (35-129) 10/05/18 06:37 < 0.010 ng/mL (0.00-0.029) 10/04/18 09:44 7.0 g/dL (6.3-8.2) 10/05/18 06:37 2.8 g/dL (3.9-5) L 10/05/18 06:37 0.7 % 10/05/18 06:37 Straw (Yellow) 10/04/18 09:53 Clear (Clear) 10/04/18 09:53 6.0 (5.0-7.0) 10/04/18 09:53 Ur Specific [place] 1.009 (1.003-1.030) 10/04/18 09:53 <15 mg/dl mg/dL (Negative) 10/04/18 09:53 Neg mg/dL (Negative) 10/04/18 09:53 Neg mg/dL (Negative) 10/04/18 09:53 Sm (Negative) 10/04/18 09:53 Neg (Negative) 10/04/18 09:53 Neg (Negative) 10/04/18 09:53 < 2.0 mg/dL (<2.0) 10/04/18 09:53 Ur Leukocyte Esterase Neg (Negative) 10/04/18 09:53 < 1.0 /HPF (0.0-6.0) 10/04/18 09:53 3.0 /HPF (0.0-6.0) 10/04/18 09:53 Few /HPF 10/04/18 09:53 Active Medications - Current Medications Current Medications: Generic Name Dose Route Start Last Admin Trade Name Freq PRN Reason Stop Dose Admin Acetaminophen 500 mg 10/04/18 19:12 Tylenol PO TID PRN Pain, Moderate (4-6) Acetaminophen 650 mg 10/04/18 19:17 Tylenol PO Q4H PRN Pain MILD(1-3)/Fever >100.5/LOPEZ Albuterol 2.5 mg 10/04/18 20:41 Proventil IH Q3HRT PRN Shortness Of Breath Albuterol/Ipratropium 1 ampul 10/05/18 08:00 10/05/18 07:51 Duoneb *Not For Prn Use* IH 1 ampul TIDRT JERRY Administration Allopurinol 100 mg 10/05/18 10:00 10/05/18 10:05 Zyloprim PO 100 mg QDAY JERRY Administration Apixaban 5 mg 10/04/18 22:00 10/05/18 09:57 Eliquis PO 5 mg BID JERRY Administration Protocol Carvedilol 25 mg 10/04/18 22:00 10/05/18 09:17 Coreg PO Not Given BID JERRY Dextrose 50 ml 10/04/18 19:17 D50w (25gm) Syringe IV PRN PRN Hypoglycemia Diltiazem HCl 60 mg 10/04/18 20:00 10/05/18 12:25 Cardizem PO Not Given Q6HR JERRY Famotidine 20 mg 10/04/18 22:00 10/05/18 09:58 Pepcid PO 20 mg BID JERRY Administration Hydromorphone HCl 0.5 mg 10/04/18 19:17 Dilaudid IV Q3H PRN Pain , Severe (7-10) Diltiazem HCl 100 mg in 100 mls @ 5 mls/hr 10/04/18 11:00 10/04/18 10:42 Cardizem/D5w 100mg/100ml IV 5 mg/hr TITR JERRY 5 mls/hr Administration Protocol 5 MG/HR Sodium Chloride 1,000 mls @ 42 mls/hr 10/04/18 20:00 10/04/18 20:49 Nacl 0.9% 1000 Ml IV 42 mls/hr DIRECT JERRY Administration Ceftriaxone Sodium 2 gm in 100 mls @ 200 mls/hr 10/04/18 20:00 10/05/18 09:59 Rocephin/Ns 2 Gm/100 Ml IV 200 mls/hr Q24HR JERRY Administration Protocol Insulin Glargine 10 units 10/04/18 22:00 10/04/18 22:51 Lantus SUB-Q 10 units QHS JERRY Administration Insulin Human Lispro 0 unit 10/04/18 22:00 10/05/18 12:21 Humalog SUB-Q 2 unit ACHS JERRY Administration Protocol Insulin Human Lispro 5 unit 10/05/18 07:30 10/05/18 12:24 Humalog SUB-Q 5 unit AC JERRY Administration Meclizine HCl 25 mg 10/04/18 19:23 Antivert PO Q8H PRN Vertigo Metoclopramide HCl 10 mg 10/04/18 19:17 Reglan IV Q6H PRN Nausea And Vomiting Ondansetron HCl 4 mg 10/04/18 19:17 Zofran IV Q8H PRN Nausea And Vomiting Oxycodone/Acetaminophen 1 tab 10/04/18 19:12 10/05/18 10:05 Percocet 5/325 PO 1 tab Q6HR PRN Administration Pain Pantoprazole Sodium 40 mg 10/04/18 20:00 10/05/18 09:58 Protonix PO 40 mg DAILY JERRY Administration Prednisone 20 mg 10/04/18 20:00 10/05/18 09:56 Deltasone PO 20 mg QDAY JERRY Administration Pregabalin 50 mg 10/04/18 22:00 10/05/18 09:58 Lyrica PO 50 mg BID JERRY Administration Sodium Chloride 10 ml 10/04/18 22:00 10/05/18 09:58 Sodium Chloride Flush Syringe 10 Ml IV 10 ml BID JERRY Administration Sodium Chloride 10 ml 10/04/18 19:17 Sodium Chloride Flush Syringe 10 Ml IV PRN PRN LINE FLUSH Tamsulosin HCl 0.4 mg 10/04/18 20:00 10/05/18 09:58 Flomax PO 0.4 mg QDAY JERRY Administration Tramadol HCl 50 mg 10/04/18 19:12 10/04/18 19:35 Ultram PO 50 mg Q6HR PRN Administration Pain
--- NOTE | 2018-10-05 19:10 | Cat Scan Report ---
PROCEDURE: CT LUMBAR SPINE WO CON TECHNIQUE: CT of the lumbar spine obtained without contrast. Coronal and sagittal reformatted obtain ed. HISTORY: sciatica COMPARISONS: None FINDINGS: No acute fracture visualized. Vertebral body heights are maintained. Status post posterior laminectom y of L4 and L5. At L2/L3, there is broad-based central disc herniation, posterior facet hypertrophy, and mild central canal stenosis. At L3/L4, there is broad-based central disc herniation, posterior facet hypertrophy, and moderate mark tral canal stenosis. At L4/L5, there is moderate to severe disc space narrowing, degenerative disc disease, broad-based ce ntral disc herniation, sclerosis of the endplates, and moderate to severe central canal stenosis. At L5/S1, there is severe disc space narrowing, degenerative disc disease, broad-based disc herniatio n, and moderate central canal stenosis. IMPRESSION: No acute fracture visualized. Multilevel degenerative changes of the lumbar spine most prominent at L4/L5. If symptoms persist or worsen, MRI could be considered for more sensitive evaluation as warranted.. This document is electronically signed by Diamond Reddy MD., October 05 2018 07:08:10 PM ET
[2018-10-05] MEDS: LANTUS SUB-Q SCH (21:11)
[2018-10-06] MEDS: CARDIZEM PO SCH ×4 (03:06→18:01)
[2018-10-06] MEDS: HumaLOG SUB-Q SCH ×7 (08:40→21:48)
--- NOTE | 2018-10-06 08:51 | Progress Note ---
Assessment and Plan Assessment and plan: -- Atrial fibrillation with RVR s/p Cardizem drip, now rate controlled Continue PO Cardizem, beta blockers and Eliquis Cardiology following -- Fever Afebrile last 48 hours Cultures negative to date empiric antibiotic Rocephin for 3days . DC ifcultures are negative -- IDDM (insulin dependent diabetes mellitus) Cont Home insulin and coverage Check A1c -- COPD (chronic obstructive pulmonary disease) Cont Combivent Inhaler -- Acute exacerbation of chronic low back pain Symptomatic treatment CT LS spine ordered -- Peripheral neuropathy COnt Gabapentin -- BPH (benign prostatic hyperplasia) Cont Flomax -- Hypertension COnt antihypertensives -- Gout Cont ALlopurinol Ciscontinue colchicine --Severe malnutrition/hypoalbuminemia nutrition supplements and supportive care, nutrition consult if needed -- GERD (gastroesophageal reflux disease) On PPI's --- Dictation- DVT prophylaxis On Eliquis and GI prophylaxis -- Full Code Follow consults and recommendations Monitor closely and adjust management as needed Plan of care is reviewed with the patient and his nurse History Interval history: Patient seen and examined Medical records reviewed The patient feels slightly better Normal complaints Hospitalist Physical - Constitutional Vitals: Temp Pulse Resp BP Pulse Ox 98.0 F 90 18 153/91 99 10/06/18 04:14 10/06/18 04:14 10/06/18 04:14 10/06/18 04:14 10/06/18 04:14 General appearance: Present: no acute distress, well-nourished - EENT Eyes: Present: PERRL, EOM intact - Neck Neck: Present: supple, normal ROM - Respiratory Respiratory effort: normal Respiratory: bilateral: diminished, negative: rales, rhonchi, wheezing - Cardiovascular Rhythm: regular Heart Sounds: Present: S1 & S2 - Extremities Extremities: no ischemia, No edema - Abdominal General gastrointestinal: soft, non-tender, non-distended, normal bowel sounds - Integumentary Integumentary: Present: clear, warm - Psychiatric Psychiatric: appropriate mood/affect - Neurologic Neurologic: CNII-XII intact, moves all extremities Results - Labs CBC & Chem 7: 10/05/18 06:37 10/05/18 06:37 Labs: Laboratory Last Values WBC 8.3 K/mm3 (4.5-11.0) 10/05/18 06:37 RBC 4.24 M/mm3 (3.65-5.03) 10/05/18 06:37 Hgb 9.7 gm/dl (11.8-15.2) L 10/05/18 06:37 Hct 30.9 % (35.5-45.6) L 10/05/18 06:37 MCV 73 fl (84-94) L 10/05/18 06:37 MCH 23 pg (28-32) L 10/05/18 06:37 MCHC 31 % (32-34) L 10/05/18 06:37 RDW 18.9 % (13.2-15.2) H 10/05/18 06:37 Plt Count 227 K/mm3 (140-440) 10/05/18 06:37 Lymph % (Auto) 9.7 % (13.4-35.0) L 10/05/18 06:37 [place] % (Auto) 11.4 % (0.0-7.3) H 10/05/18 06:37 Eos % (Auto) 0.1 % (0.0-4.3) 10/05/18 06:37 Baso % (Auto) 0.5 % (0.0-1.8) 10/05/18 06:37 Lymph # 0.8 K/mm3 (1.2-5.4) L 10/05/18 06:37 [place] # 0.9 K/mm3 (0.0-0.8) H 10/05/18 06:37 Eos # 0.0 K/mm3 (0.0-0.4) 10/05/18 06:37 Baso # 0.0 K/mm3 (0.0-0.1) 10/05/18 06:37 Total Counted 100 10/04/18 09:44 Seg Neutrophils % 78.3 % (40.0-70.0) H 10/05/18 06:37 Seg Neuts % (Manual) 79.0 % (40.0-70.0) H 10/04/18 09:44 0 % 10/04/18 09:44 8.0 % (13.4-35.0) L 10/04/18 09:44 Reactive Lymphs % (Man) 0 % 10/04/18 09:44 12.0 % (0.0-7.3) H 10/04/18 09:44 0 % (0.0-4.3) 10/04/18 09:44 0 % (0.0-1.8) 10/04/18 09:44 1.0 % 10/04/18 09:44 0 % 10/04/18 09:44 0 % 10/04/18 09:44 0 % 10/04/18 09:44 Nucleated RBC % Not Reportable 10/04/18 09:44 Seg Neutrophils # 6.5 K/mm3 (1.8-7.7) 10/05/18 06:37 Seg Neutrophils # Man 6.3 K/mm3 (1.8-7.7) 10/04/18 09:44 Band Neutrophils # 0.0 K/mm3 10/04/18 09:44 0.6 K/mm3 (1.2-5.4) L 10/04/18 09:44 Abs React Lymphs (Man) 0.0 K/mm3 10/04/18 09:44 1.0 K/mm3 (0.0-0.8) H 10/04/18 09:44 0.0 K/mm3 (0.0-0.4) 10/04/18 09:44 0.0 K/mm3 (0.0-0.1) 10/04/18 09:44 0.1 K/mm3 10/04/18 09:44 0.0 K/mm3 10/04/18 09:44 0.0 K/mm3 10/04/18 09:44 Blast Cells # 0.0 K/mm3 10/04/18 09:44 WBC Morphology Not Reportable 10/04/18 09:44 Hypersegmented Neuts Not Reportable 10/04/18 09:44 Hyposegmented Neuts Not Reportable 10/04/18 09:44 Hypogranular Neuts Not Reportable 10/04/18 09:44 Not Reportable 10/04/18 09:44 Not Reportable 10/04/18 09:44 Not Reportable 10/04/18 09:44 Not Reportable 10/04/18 09:44 Not Reportable 10/04/18 09:44 Not Reportable 10/04/18 09:44 Consistent w auto 10/04/18 09:44 Not Reportable 10/04/18 09:44 Plt Clumps, EDTA Not Reportable 10/04/18 09:44 Not Reportable 10/04/18 09:44 Not Reportable 10/04/18 09:44 Not Reportable 10/04/18 09:44 Plt Morphology Comment Not Reportable 10/04/18 09:44 RBC Morphology Not Reportable 10/04/18 09:44 Dimorphic RBCs Not Reportable 10/04/18 09:44 Not Reportable 10/04/18 09:44 Not Reportable 10/04/18 09:44 1+ 10/04/18 09:44 1+ 10/04/18 09:44 Not Reportable 10/04/18 09:44 Not Reportable 10/04/18 09:44 Not Reportable 10/04/18 09:44 Not Reportable 10/04/18 09:44 Not Reportable 10/04/18 09:44 Not Reportable 10/04/18 09:44 Few 10/04/18 09:44 Few 10/04/18 09:44 Not Reportable 10/04/18 09:44 Not Reportable 10/04/18 09:44 Not Reportable 10/04/18 09:44 Not Reportable 10/04/18 09:44 Not Reportable 10/04/18 09:44 Not Reportable 10/04/18 09:44 Few 10/04/18 09:44 Acanthocytes (Spur) Not Reportable 10/04/18 09:44 Rouleaux Not Reportable 10/04/18 09:44 Not Reportable 10/04/18 09:44 Not Reportable 10/04/18 09:44 Not Reportable 10/04/18 09:44 Not Reportable 10/04/18 09:44 Hem Pathologist Commnt No 10/04/18 09:44 Sodium 142 mmol/L (137-145) 10/05/18 06:37 Potassium 4.3 mmol/L (3.6-5.0) 10/05/18 06:37 Chloride 105.5 mmol/L (98-107) 10/05/18 06:37 Carbon Dioxide 25 mmol/L (22-30) 10/05/18 06:37 16 mmol/L 10/05/18 06:37 BUN 15 mg/dL (9-20) 10/05/18 06:37 1.5 mg/dL (0.8-1.5) 10/05/18 06:37 Estimated GFR 56 ml/min 10/05/18 06:37 10 % 10/05/18 06:37 Glucose 165 mg/dL (75-100) H 10/05/18 06:37 POC Glucose 126 (70-105) H 10/06/18 08:28 Lactic Acid 0.70 mmol/L (0.7-2.0) 10/04/18 13:16 Calcium 8.6 mg/dL (8.4-10.2) 10/05/18 06:37 0.40 mg/dL (0.1-1.2) 10/05/18 06:37 AST 10 units/L (5-40) 10/05/18 06:37 ALT 11 units/L (7-56) 10/05/18 06:37 58 units/L (35-129) 10/05/18 06:37 < 0.010 ng/mL (0.00-0.029) 10/04/18 09:44 7.0 g/dL (6.3-8.2) 10/05/18 06:37 2.8 g/dL (3.9-5) L 10/05/18 06:37 0.7 % 10/05/18 06:37 Straw (Yellow) 10/04/18 09:53 Clear (Clear) 10/04/18 09:53 6.0 (5.0-7.0) 10/04/18 09:53 Ur Specific [place] 1.009 (1.003-1.030) 10/04/18 09:53 <15 mg/dl mg/dL (Negative) 10/04/18 09:53 Neg mg/dL (Negative) 10/04/18 09:53 Neg mg/dL (Negative) 10/04/18 09:53 Sm (Negative) 10/04/18 09:53 Neg (Negative) 10/04/18 09:53 Neg (Negative) 10/04/18 09:53 < 2.0 mg/dL (<2.0) 10/04/18 09:53 Ur Leukocyte Esterase Neg (Negative) 10/04/18 09:53 < 1.0 /HPF (0.0-6.0) 10/04/18 09:53 3.0 /HPF (0.0-6.0) 10/04/18 09:53 Few /HPF 10/04/18 09:53 Active Medications - Current Medications Current Medications: Generic Name Dose Route Start Last Admin Trade Name Freq PRN Reason Stop Dose Admin Acetaminophen 500 mg 10/04/18 19:12 Tylenol PO TID PRN Pain, Moderate (4-6) Acetaminophen 650 mg 10/04/18 19:17 Tylenol PO Q4H PRN Pain MILD(1-3)/Fever >100.5/LOPEZ Albuterol 2.5 mg 10/04/18 20:41 Proventil IH Q3HRT PRN Shortness Of Breath Albuterol/Ipratropium 1 ampul 10/05/18 08:00 10/05/18 20:24 Duoneb *Not For Prn Use* IH 1 ampul TIDRT JERRY Administration Allopurinol 100 mg 10/05/18 10:00 10/05/18 10:05 Zyloprim PO 100 mg QDAY JERRY Administration Apixaban 5 mg 10/04/18 22:00 10/05/18 21:12 Eliquis PO 5 mg BID JERRY Administration Protocol Carvedilol 25 mg 10/04/18 22:00 10/05/18 21:12 Coreg PO 25 mg BID JERRY Administration Dextrose 50 ml 10/04/18 19:17 D50w (25gm) Syringe IV PRN PRN Hypoglycemia Diltiazem HCl 60 mg 10/04/18 20:00 10/06/18 06:11 Cardizem PO 60 mg Q6HR JERRY Administration Famotidine 20 mg 10/04/18 22:00 10/05/18 21:12 Pepcid PO 20 mg BID JERRY Administration Hydromorphone HCl 0.5 mg 10/04/18 19:17 Dilaudid IV Q3H PRN Pain , Severe (7-10) Ceftriaxone Sodium 2 gm in 100 mls @ 200 mls/hr 10/04/18 20:00 10/05/18 09:59 Rocephin/Ns 2 Gm/100 Ml IV 200 mls/hr Q24HR JERRY Administration Protocol Insulin Glargine 10 units 10/04/18 22:00 10/05/18 21:11 Lantus SUB-Q 10 units QHS JERRY Administration Insulin Human Lispro 0 unit 10/04/18 22:00 10/05/18 21:11 Humalog SUB-Q 2 unit ACHS JERRY Administration Protocol Insulin Human Lispro 5 unit 10/05/18 07:30 10/05/18 19:04 Humalog SUB-Q 5 unit AC JERRY Administration Meclizine HCl 25 mg 10/04/18 19:23 Antivert PO Q8H PRN Vertigo Metoclopramide HCl 10 mg 10/04/18 19:17 Reglan IV Q6H PRN Nausea And Vomiting Ondansetron HCl 4 mg 10/04/18 19:17 Zofran IV Q8H PRN Nausea And Vomiting Oxycodone/Acetaminophen 1 tab 10/04/18 19:12 10/05/18 16:42 Percocet 5/325 PO 1 tab Q6HR PRN Administration Pain Pantoprazole Sodium 40 mg 10/04/18 20:00 10/05/18 09:58 Protonix PO 40 mg DAILY JERRY Administration Prednisone 20 mg 10/04/18 20:00 10/05/18 09:56 Deltasone PO 20 mg QDAY JERRY Administration Pregabalin 50 mg 10/04/18 22:00 10/05/18 21:12 Lyrica PO 50 mg BID JERRY Administration Sodium Chloride 10 ml 10/04/18 22:00 10/05/18 21:13 Sodium Chloride Flush Syringe 10 Ml IV 10 ml BID JERRY Administration Sodium Chloride 10 ml 10/04/18 19:17 Sodium Chloride Flush Syringe 10 Ml IV PRN PRN LINE FLUSH Tamsulosin HCl 0.4 mg 10/04/18 20:00 10/05/18 09:58 Flomax PO 0.4 mg QDAY JERRY Administration Tramadol HCl 50 mg 10/04/18 19:12 10/04/18 19:35 Ultram PO 50 mg Q6HR PRN Administration Pain
[2018-10-06] MEDS: DUONEB *Not for PRN Use IH SCH ×3 (09:41→20:18)
[2018-10-06] MEDS: ROCEPHIN/NS 2 GM/100 ML 2 GM/100 ML BAG IV SCH (10:36)
[2018-10-06] MEDS: COREG PO SCH ×2 (10:37→21:38)
[2018-10-06] MEDS: FLOMAX PO SCH (10:37)
[2018-10-06] MEDS: PROTONIX PO SCH (10:37)
[2018-10-06] MEDS: LYRICA PO SCH ×2 (10:37→21:39)
[2018-10-06] MEDS: DELTASONE PO SCH (10:37)
[2018-10-06] MEDS: PEPCID PO SCH ×2 (10:37→21:40)
[2018-10-06] MEDS: ELIQUIS PO SCH ×2 (10:37→21:38)
[2018-10-06] MEDS: ZYLOPRIM PO SCH (10:37)
[2018-10-06] MEDS: SODIUM CHLORIDE FLUSH SYRINGE 10 ML IV SCH ×2 (10:41→21:40)
[2018-10-06] MEDS: PERCOCET 5/325 PO PRN (13:57)
--- NOTE | 2018-10-06 17:32 | Progress Note ---
Assessment and Plan Continue current cardiac management. Will not decrease diltiazem dose at this time, despite patient's concern about a low BP, because his pressures otherwise remain elevated and his HR is controlled well. Patient has been seen in conjunction with Dr. Almaraz, who agrees with assessment and plan. - Patient Problems (1) Acute HFrEF (heart failure with reduced ejection fraction) Current Visit: No Status: Acute (2) Atrial fibrillation with RVR Current Visit: Yes Status: Acute (3) Back pain Current Visit: Yes Status: Acute Qualifiers: Back pain location: low back pain Chronicity: acute Back pain laterality: bilateral Sciatica presence: with sciatica Sciatica laterality: bilateral sciatica Qualified Code(s): M54.42 - Lumbago with sciatica, left side; M54.41 - Lumbago with sciatica, right side (4) COPD (chronic obstructive pulmonary disease) Current Visit: Yes Status: Chronic Qualifiers: Emphysema type: unspecified (5) IDDM (insulin dependent diabetes mellitus) Current Visit: Yes Status: Chronic (6) NETO (acute kidney injury) Current Visit: Yes Status: Acute (7) History of DVT (deep vein thrombosis) Current Visit: No Status: Chronic (8) History of pulmonary embolism Current Visit: No Status: Chronic (9) Hypertension Current Visit: No Status: Chronic Qualifiers: Hypertension type: essential hypertension Qualified Code(s): I10 - Essential (primary) hypertension Subjective Date of service: 10/06/18 Interval history: Patient lying in bed in NAD, but c/o back and leg pain. He refused an earlier dose of PO diltiazem because his blood pressure dropped to 90/48; however, his pressures otherwise remain elevated. He remains in afib with rates in the 70s on telemetry. A 5-beat run of NSVT was also noted overnight. Objective Last Vital Signs Temp 98.2 F 10/06/18 08:45 Pulse 90 10/06/18 04:14 Resp 18 10/06/18 08:45 BP 135/82 10/06/18 08:45 Pulse Ox 96 10/06/18 09:41 - Physical Examination General: No Apparent Distress HEENT: Positive: PERRL, Normocephaly Neck: Positive: neck supple, trachea midline. Negative: JVD/HJR Cardiac: Positive: irregularly irregular Lungs: Positive: clear to auscultation Neuro: Positive: Grossly Intact Abdomen: Positive: Unremarkable, Soft, Active Bowel Sounds, Aorta, Other (Obese). Negative: Hepatosplenomegaly /Rectal: Other (Deferred) Skin: Positive: Clear Musculoskeletal: Normal Range of Motion Extremities: Present: normal - Imaging and Cardiology EKG: report reviewed (Afib with rvr) - Telemetry EKG Rhythm: Atrial Fibrillation
[2018-10-06] MEDS: LANTUS SUB-Q SCH (21:40)
[2018-10-07] MEDS: CARDIZEM PO SCH ×2 (00:58→05:50)
[2018-10-07] MEDS: HumaLOG SUB-Q SCH ×7 (08:14→22:01)
[2018-10-07] MEDS: DUONEB *Not for PRN Use IH SCH ×3 (09:12→20:14)
--- NOTE | 2018-10-07 09:18 | Progress Note ---
Assessment and Plan Assessment and plan: --Abdominal pain; cholelithiasis on CT abdominal ultrasound to rule out coronary cystitis --- Atrial fibrillation with slow ventricular rate s/p Cardizem drip, now rate, Cardiology following adjust Cardizem/ beta blockers and Eliquis Follow-up recommendations -- Fever: Resolved Afebrile last 48 hours , Cultures negative to date empiric antibiotic Rocephin for 3days . -- IDDM (insulin dependent diabetes mellitus) Cont Home insulin and coverage, Check A1c 6.2 -- COPD (chronic obstructive pulmonary disease) Cont Combivent Inhaler -- Acute exacerbation of chronic low back pain Symptomatic treatment,CT LS spine degenerative spine disease Advised to follow private orthopedic/neurosurgery upon discharge -- Peripheral neuropathy COnt Gabapentin -- BPH (benign prostatic hyperplasia) Cont Flomax -- Hypertension COnt antihypertensives -- Gout Cont ALlopurinol Ciscontinue colchicine --Severe malnutrition/hypoalbuminemia nutrition supplements and supportive care, nutrition consult if needed -- GERD (gastroesophageal reflux disease) On PPI's -- DVT prophylaxis On Eliquis and GI prophylaxis -- Full Code Follow ultrasound abdomen abdomen cardiology recommendations Possible discharge tomorrow if stable Plan of care reviewed with the patient and his nurse, History Interval history: Patient seen and examined medical records reviewed Recent complaints of some abdominal pain CT abdomen consistent with cholelithiasis A. fib with low ventricular rate on Cardizem Alert awake oriented Vital signs reviewed Hospitalist Physical - Constitutional Vitals: Temp Pulse Resp BP Pulse Ox 97.5 F L 66 18 120/74 98 10/07/18 07:20 10/07/18 09:12 10/07/18 09:12 10/07/18 07:20 10/07/18 07:20 General appearance: Present: no acute distress, well-nourished - EENT Eyes: Present: PERRL, EOM intact - Neck Neck: Present: supple, normal ROM - Respiratory Respiratory effort: normal Respiratory: bilateral: diminished, negative: rales, rhonchi, wheezing - Cardiovascular Rhythm: regular Heart Sounds: Present: S1 & S2 - Extremities Extremities: no ischemia, No edema - Abdominal General gastrointestinal: soft, non-tender, non-distended, normal bowel sounds - Integumentary Integumentary: Present: clear, warm - Psychiatric Psychiatric: appropriate mood/affect, cooperative - Neurologic Neurologic: CNII-XII intact, moves all extremities Results - Labs CBC & Chem 7: 10/05/18 06:37 10/05/18 06:37 Labs: Laboratory Last Values WBC 8.3 K/mm3 (4.5-11.0) 10/05/18 06:37 RBC 4.24 M/mm3 (3.65-5.03) 10/05/18 06:37 Hgb 9.7 gm/dl (11.8-15.2) L 10/05/18 06:37 Hct 30.9 % (35.5-45.6) L 10/05/18 06:37 MCV 73 fl (84-94) L 10/05/18 06:37 MCH 23 pg (28-32) L 10/05/18 06:37 MCHC 31 % (32-34) L 10/05/18 06:37 RDW 18.9 % (13.2-15.2) H 10/05/18 06:37 Plt Count 227 K/mm3 (140-440) 10/05/18 06:37 Lymph % (Auto) 9.7 % (13.4-35.0) L 10/05/18 06:37 [place] % (Auto) 11.4 % (0.0-7.3) H 10/05/18 06:37 Eos % (Auto) 0.1 % (0.0-4.3) 10/05/18 06:37 Baso % (Auto) 0.5 % (0.0-1.8) 10/05/18 06:37 Lymph # 0.8 K/mm3 (1.2-5.4) L 10/05/18 06:37 [place] # 0.9 K/mm3 (0.0-0.8) H 10/05/18 06:37 Eos # 0.0 K/mm3 (0.0-0.4) 10/05/18 06:37 Baso # 0.0 K/mm3 (0.0-0.1) 10/05/18 06:37 Total Counted 100 10/04/18 09:44 Seg Neutrophils % 78.3 % (40.0-70.0) H 10/05/18 06:37 Seg Neuts % (Manual) 79.0 % (40.0-70.0) H 10/04/18 09:44 0 % 10/04/18 09:44 8.0 % (13.4-35.0) L 10/04/18 09:44 Reactive Lymphs % (Man) 0 % 10/04/18 09:44 12.0 % (0.0-7.3) H 10/04/18 09:44 0 % (0.0-4.3) 10/04/18 09:44 0 % (0.0-1.8) 10/04/18 09:44 1.0 % 10/04/18 09:44 0 % 10/04/18 09:44 0 % 10/04/18 09:44 0 % 10/04/18 09:44 Nucleated RBC % Not Reportable 10/04/18 09:44 Seg Neutrophils # 6.5 K/mm3 (1.8-7.7) 10/05/18 06:37 Seg Neutrophils # Man 6.3 K/mm3 (1.8-7.7) 10/04/18 09:44 Band Neutrophils # 0.0 K/mm3 10/04/18 09:44 0.6 K/mm3 (1.2-5.4) L 10/04/18 09:44 Abs React Lymphs (Man) 0.0 K/mm3 10/04/18 09:44 1.0 K/mm3 (0.0-0.8) H 10/04/18 09:44 0.0 K/mm3 (0.0-0.4) 10/04/18 09:44 0.0 K/mm3 (0.0-0.1) 10/04/18 09:44 0.1 K/mm3 10/04/18 09:44 0.0 K/mm3 10/04/18 09:44 0.0 K/mm3 10/04/18 09:44 Blast Cells # 0.0 K/mm3 10/04/18 09:44 WBC Morphology Not Reportable 10/04/18 09:44 Hypersegmented Neuts Not Reportable 10/04/18 09:44 Hyposegmented Neuts Not Reportable 10/04/18 09:44 Hypogranular Neuts Not Reportable 10/04/18 09:44 Not Reportable 10/04/18 09:44 Not Reportable 10/04/18 09:44 Not Reportable 10/04/18 09:44 Not Reportable 10/04/18 09:44 Not Reportable 10/04/18 09:44 Not Reportable 10/04/18 09:44 Consistent w auto 10/04/18 09:44 Not Reportable 10/04/18 09:44 Plt Clumps, EDTA Not Reportable 10/04/18 09:44 Not Reportable 10/04/18 09:44 Not Reportable 10/04/18 09:44 Not Reportable 10/04/18 09:44 Plt Morphology Comment Not Reportable 10/04/18 09:44 RBC Morphology Not Reportable 10/04/18 09:44 Dimorphic RBCs Not Reportable 10/04/18 09:44 Not Reportable 10/04/18 09:44 Not Reportable 10/04/18 09:44 1+ 10/04/18 09:44 1+ 10/04/18 09:44 Not Reportable 10/04/18 09:44 Not Reportable 10/04/18 09:44 Not Reportable 10/04/18 09:44 Not Reportable 10/04/18 09:44 Not Reportable 10/04/18 09:44 Not Reportable 10/04/18 09:44 Few 10/04/18 09:44 Few 10/04/18 09:44 Not Reportable 10/04/18 09:44 Not Reportable 10/04/18 09:44 Not Reportable 10/04/18 09:44 Not Reportable 10/04/18 09:44 Not Reportable 10/04/18 09:44 Not Reportable 10/04/18 09:44 Few 10/04/18 09:44 Acanthocytes (Spur) Not Reportable 10/04/18 09:44 Rouleaux Not Reportable 10/04/18 09:44 Not Reportable 10/04/18 09:44 Not Reportable 10/04/18 09:44 Not Reportable 10/04/18 09:44 Not Reportable 10/04/18 09:44 Hem Pathologist Commnt No 10/04/18 09:44 Sodium 142 mmol/L (137-145) 10/05/18 06:37 Potassium 4.3 mmol/L (3.6-5.0) 10/05/18 06:37 Chloride 105.5 mmol/L (98-107) 10/05/18 06:37 Carbon Dioxide 25 mmol/L (22-30) 10/05/18 06:37 16 mmol/L 10/05/18 06:37 BUN 15 mg/dL (9-20) 10/05/18 06:37 1.5 mg/dL (0.8-1.5) 10/05/18 06:37 Estimated GFR 56 ml/min 10/05/18 06:37 10 % 10/05/18 06:37 Glucose 165 mg/dL (75-100) H 10/05/18 06:37 POC Glucose 137 (70-105) H 10/07/18 07:26 Lactic Acid 0.70 mmol/L (0.7-2.0) 10/04/18 13:16 Calcium 8.6 mg/dL (8.4-10.2) 10/05/18 06:37 0.40 mg/dL (0.1-1.2) 10/05/18 06:37 AST 10 units/L (5-40) 10/05/18 06:37 ALT 11 units/L (7-56) 10/05/18 06:37 58 units/L (35-129) 10/05/18 06:37 < 0.010 ng/mL (0.00-0.029) 10/04/18 09:44 7.0 g/dL (6.3-8.2) 10/05/18 06:37 2.8 g/dL (3.9-5) L 10/05/18 06:37 0.7 % 10/05/18 06:37 Straw (Yellow) 10/04/18 09:53 Clear (Clear) 10/04/18 09:53 6.0 (5.0-7.0) 10/04/18 09:53 Ur Specific [place] 1.009 (1.003-1.030) 10/04/18 09:53 <15 mg/dl mg/dL (Negative) 10/04/18 09:53 Neg mg/dL (Negative) 10/04/18 09:53 Neg mg/dL (Negative) 10/04/18 09:53 Sm (Negative) 10/04/18 09:53 Neg (Negative) 10/04/18 09:53 Neg (Negative) 10/04/18 09:53 < 2.0 mg/dL (<2.0) 10/04/18 09:53 Ur Leukocyte Esterase Neg (Negative) 10/04/18 09:53 < 1.0 /HPF (0.0-6.0) 10/04/18 09:53 3.0 /HPF (0.0-6.0) 10/04/18 09:53 Few /HPF 10/04/18 09:53 Active Medications - Current Medications Current Medications: Generic Name Dose Route Start Last Admin Trade Name Freq PRN Reason Stop Dose Admin Acetaminophen 500 mg 10/04/18 19:12 Tylenol PO TID PRN Pain, Moderate (4-6) Acetaminophen 650 mg 10/04/18 19:17 Tylenol PO Q4H PRN Pain MILD(1-3)/Fever >100.5/LOPEZ Albuterol 2.5 mg 10/04/18 20:41 Proventil IH Q3HRT PRN Shortness Of Breath Albuterol/Ipratropium 1 ampul 10/05/18 08:00 10/07/18 09:12 Duoneb *Not For Prn Use* IH 1 ampul TIDRT JERRY Administration Allopurinol 100 mg 10/05/18 10:00 10/06/18 10:37 Zyloprim PO 100 mg QDAY JERRY Administration Apixaban 5 mg 10/04/18 22:00 10/06/18 21:38 Eliquis PO 5 mg BID JERRY Administration Protocol Carvedilol 25 mg 10/04/18 22:00 10/06/18 21:38 Coreg PO 25 mg BID JERRY Administration Dextrose 50 ml 10/04/18 19:17 D50w (25gm) Syringe IV PRN PRN Hypoglycemia Diltiazem HCl 60 mg 10/04/18 20:00 10/07/18 05:50 Cardizem PO 60 mg Q6HR JERRY Administration Famotidine 20 mg 10/04/18 22:00 10/06/18 21:40 Pepcid PO 20 mg BID JERRY Administration Hydromorphone HCl 0.5 mg 10/04/18 19:17 Dilaudid IV Q3H PRN Pain , Severe (7-10) Insulin Glargine 10 units 10/04/18 22:00 10/06/18 21:40 Lantus SUB-Q 10 units QHS JERRY Administration Insulin Human Lispro 0 unit 10/04/18 22:00 10/07/18 08:14 Humalog SUB-Q Not Given ACHS [facility] Protocol Insulin Human Lispro 5 unit 10/05/18 07:30 10/06/18 18:00 Humalog SUB-Q 5 unit AC JERRY Administration Meclizine HCl 25 mg 10/04/18 19:23 Antivert PO Q8H PRN Vertigo Metoclopramide HCl 10 mg 10/04/18 19:17 Reglan IV Q6H PRN Nausea And Vomiting Ondansetron HCl 4 mg 10/04/18 19:17 Zofran IV Q8H PRN Nausea And Vomiting Oxycodone/Acetaminophen 1 tab 10/04/18 19:12 10/06/18 13:57 Percocet 5/325 PO 1 tab Q6HR PRN Administration Pain Pantoprazole Sodium 40 mg 10/04/18 20:00 10/06/18 10:37 Protonix PO 40 mg DAILY JERRY Administration Prednisone 20 mg 10/04/18 20:00 10/06/18 10:37 Deltasone PO 20 mg QDAY JERRY Administration Pregabalin 50 mg 10/04/18 22:00 10/06/18 21:39 Lyrica PO 50 mg BID JERRY Administration Sodium Chloride 10 ml 10/04/18 22:00 10/06/18 21:40 Sodium Chloride Flush Syringe 10 Ml IV 10 ml BID JERRY Administration Sodium Chloride 10 ml 10/04/18 19:17 Sodium Chloride Flush Syringe 10 Ml IV PRN PRN LINE FLUSH Tamsulosin HCl 0.4 mg 10/04/18 20:00 10/06/18 10:37 Flomax PO 0.4 mg QDAY JERRY Administration Tramadol HCl 50 mg 10/04/18 19:12 10/04/18 19:35 Ultram PO 50 mg Q6HR PRN Administration Pain
[2018-10-07] MEDS: FLOMAX PO SCH (10:48)
[2018-10-07] MEDS: DELTASONE PO SCH (10:48)
[2018-10-07] MEDS: ZYLOPRIM PO SCH (10:48)
[2018-10-07] MEDS: ELIQUIS PO SCH ×2 (10:48→22:00)
[2018-10-07] MEDS: COREG PO SCH ×2 (10:49→22:00)
[2018-10-07] MEDS: PROTONIX PO SCH (10:49)
[2018-10-07] MEDS: LYRICA PO SCH ×2 (10:49→22:00)
[2018-10-07] MEDS: SODIUM CHLORIDE FLUSH SYRINGE 10 ML IV SCH ×2 (10:49→22:02)
[2018-10-07] MEDS: PEPCID PO SCH ×2 (10:49→22:01)
--- NOTE | 2018-10-07 11:46 | Progress Note ---
Assessment and Plan Pt now in AFib with SVR. Cont coreg, hold cardizem and observe response. Cont Eliquis. The patient has been seen in conjunction with Dr. Park who agrees with assessment and plan of care. - Patient Problems (1) Atrial fibrillation with RVR Current Visit: Yes Status: Acute (2) Back pain Current Visit: Yes Status: Acute Qualifiers: Back pain location: low back pain Chronicity: acute Back pain laterality: bilateral Sciatica presence: with sciatica Sciatica laterality: bilateral sciatica Qualified Code(s): M54.42 - Lumbago with sciatica, left side; M54.41 - Lumbago with sciatica, right side (3) COPD (chronic obstructive pulmonary disease) Current Visit: Yes Status: Chronic Qualifiers: Emphysema type: unspecified (4) IDDM (insulin dependent diabetes mellitus) Current Visit: Yes Status: Chronic (5) NETO (acute kidney injury) Current Visit: Yes Status: Acute (6) History of DVT (deep vein thrombosis) Current Visit: No Status: Chronic (7) History of pulmonary embolism Current Visit: No Status: Chronic (8) Hypertension Current Visit: No Status: Chronic Qualifiers: Hypertension type: essential hypertension Qualified Code(s): I10 - Essential (primary) hypertension Subjective Date of service: 10/07/18 Principal diagnosis: AFib; HF Interval history: pt resting in bed, no current cardiac complaints. in AFib with SVR HR 40s on telemetry. Objective Last Vital Signs Temp 97.5 F L 10/07/18 07:20 Pulse 66 10/07/18 09:12 Resp 18 10/07/18 09:12 BP 120/74 10/07/18 07:20 Pulse Ox 98 10/07/18 07:20 - Physical Examination General: No Apparent Distress HEENT: Positive: PERRL, Normocephaly Neck: Positive: neck supple, trachea midline. Negative: JVD/HJR Cardiac: Positive: irregularly irregular, S1/S2 Lungs: Positive: Decreased Breath Sounds Neuro: Positive: Grossly Intact Abdomen: Positive: Unremarkable, Soft, Active Bowel Sounds, Aorta, Other (Obese). Negative: Hepatosplenomegaly /Rectal: Other (Deferred) Skin: Positive: Clear Musculoskeletal: Normal Range of Motion Extremities: Present: normal - Imaging and Cardiology EKG: report reviewed (Afib with rvr)
[2018-10-07] MEDS: LANTUS SUB-Q SCH (22:01)
[2018-10-08] MEDS: DUONEB *Not for PRN Use IH SCH ×2 (07:27→13:13)
[2018-10-08] MEDS: HumaLOG SUB-Q SCH ×4 (07:30→12:53)
--- NOTE | 2018-10-08 10:29 | Discharge Summary ---
Providers - Providers Date of Admission: 10/04/18 12:24 Date of discharge: 10/08/18 Attending physician: GEE AVILA 10/05/18 08:20 Consult to Cardiology [CONS] Routine Consulting Provider: GARY OMER Reason For Exam: Atrial fibrillation with RVR 10/07/18 16:00 Consult to Dietitian/Nutrition [CONS] Routine Physician Instructions: Reason For Exam: Reason for Consult: Malnutrition Primary care physician: [facility], Hospitalization Reason for admission: Abdominal,back pain/Afib with RVR Condition: Stable Pertinent studies: CT abdomen Abd US Lumbar spine CT Hospital course: 68-year-old male patient with history of A. fib with RVR, CHF, COPD, hypertensio n, DVT in his right leg in the past on chronic anticoagulation Patient states he is on blood thinners was admitted through ER with chest pain,abdominal pain and back pain Patient denies shortness of breath. In triage patient is found to have an elevated heart rate. noted to be in Afib with RVR. Symptomatically managed,evaluated by cardiology,started on cardizm drip,heart rate brought to reasonable levels, Patient had abd CT and US ,findings consistant with Cholelithiasis without cholecystitis. Cardiology evaluated,medications optimised.Today patient is comfortable,no new complaints, vital signs stable,Physical exam unremarkable. Cleared by cardiology for diacharge and f/u as out patient. Stable at discharge Discharge Diagnosis: --Abdominal pain; cholelithiasis on CT abdominal ultrasound to rule out coronary cystitis --- Atrial fibrillation with slow ventricular rate s/p Cardizem drip, now rate, Cardiology following adjust Cardizem/ beta blockers and Eliquis Follow-up recommendations -- Fever: Resolved Afebrile last 48 hours , Cultures negative to date empiric antibiotic Rocephin for 3days . -- IDDM (insulin dependent diabetes mellitus) Cont Home insulin and coverage, Check A1c 6.2 -- COPD (chronic obstructive pulmonary disease) Cont Combivent Inhaler -- Acute exacerbation of chronic low back pain Symptomatic treatment,CT LS spine degenerative spine disease Advised to follow private orthopedic/neurosurgery upon discharge -- Peripheral neuropathy COnt Gabapentin -- BPH (benign prostatic hyperplasia) Cont Flomax -- Hypertension COnt antihypertensives -- Gout Cont ALlopurinol Ciscontinue colchicine --Severe malnutrition/hypoalbuminemia nutrition supplements and supportive care, nutrition consult if needed -- GERD (gastroesophageal reflux disease) On PPI's -- DVT prophylaxis On Eliquis and GI prophylaxis -- Full Code Disposition: [id number] HOME UNDER HOME [facility] Time spent for discharge: 32 min Core Measure Documentation - Palliative Care Palliative Care/ Comfort Measures: Not Applicable - Core Measures Any of the following diagnoses?: none Exam - Constitutional Vitals: Temp Pulse Resp BP Pulse Ox 98.3 F 68 18 141/90 95 10/08/18 07:37 10/08/18 07:37 10/08/18 07:37 10/08/18 07:37 10/08/18 07:37 General appearance: Present: no acute distress, well-nourished - EENT Eyes: Present: PERRL, EOM intact - Neck Neck: Present: supple, normal ROM - Respiratory Respiratory effort: normal Respiratory: bilateral: diminished, negative: rales, rhonchi, wheezing - Cardiovascular Rhythm: regular Heart Sounds: Present: S1 & S2 - Extremities Extremities: no ischemia, No edema - Abdominal General gastrointestinal: Present: soft, non-tender, non-distended, normal bowel sounds - Integumentary Integumentary: Present: clear, warm - Musculoskeletal Musculoskeletal: strength equal bilaterally, generalized weakness - Psychiatric Psychiatric: appropriate mood/affect, cooperative - Neurologic Neurologic: CNII-XII intact, moves all extremities Plan Activity: no restrictions Diet: diabetic Additional Instructions: Advised to follow a stockroom worker at [place] in 1 week. Advised to see neurosurgeon/orthopedic surgical chronic back problems Follow up with: CASSIE MON MD [Primary Care Provider] - 3-5 Days Prescriptions: oxyCODONE /ACETAMINOPHEN [Percocet 5/325] 1 tab PO TID #6 tablet
[2018-10-08] MEDS: FLOMAX PO SCH (10:39)
[2018-10-08] MEDS: LYRICA PO SCH (10:39)
[2018-10-08] MEDS: ELIQUIS PO SCH (10:40)
[2018-10-08] MEDS: PROTONIX PO SCH (10:40)
[2018-10-08] MEDS: DELTASONE PO SCH (10:41)
[2018-10-08] MEDS: ZYLOPRIM PO SCH (10:41)
[2018-10-08] MEDS: PEPCID PO SCH (10:41)
[2018-10-08] MEDS: COREG PO SCH (10:41)
[2018-10-08] MEDS: SODIUM CHLORIDE FLUSH SYRINGE 10 ML IV SCH (10:42)
[2018-10-08] MEDS: PERCOCET 5/325 PO PRN (10:53)
--- NOTE | 2018-10-08 11:30 | Progress Note ---
Assessment and Plan Pt now in AFib with CVR. Currently stable cardiac status. Pt may discharge from cardiology standpoint. Recommend pt follow up with [facility] within 1-2 weeks of hospital discharge. The patient has been seen in conjunction with Dr. Park who agrees with assessment and plan of care. - Patient Problems (1) Atrial fibrillation with RVR Current Visit: Yes Status: Acute (2) Back pain Current Visit: Yes Status: Acute Qualifiers: Back pain location: low back pain Chronicity: acute Back pain laterality: bilateral Sciatica presence: with sciatica Sciatica laterality: bilateral sciatica Qualified Code(s): M54.42 - Lumbago with sciatica, left side; M54.41 - Lumbago with sciatica, right side (3) COPD (chronic obstructive pulmonary disease) Current Visit: Yes Status: Chronic Qualifiers: Emphysema type: unspecified (4) IDDM (insulin dependent diabetes mellitus) Current Visit: Yes Status: Chronic (5) NETO (acute kidney injury) Current Visit: Yes Status: Acute (6) History of DVT (deep vein thrombosis) Current Visit: No Status: Chronic (7) History of pulmonary embolism Current Visit: No Status: Chronic (8) Hypertension Current Visit: No Status: Chronic Qualifiers: Hypertension type: essential hypertension Qualified Code(s): I10 - Essential (primary) hypertension Subjective Date of service: 10/08/18 Principal diagnosis: AFib; HF Interval history: pt resting in bed, no current cardiac complaints. in AFib with SVR HR 90s on telemetry. Objective Last Vital Signs Temp 98.3 F 10/08/18 07:37 Pulse 68 10/08/18 10:41 Resp 20 10/08/18 10:53 BP 141/90 10/08/18 10:41 Pulse Ox 95 10/08/18 07:37 - Physical Examination General: No Apparent Distress HEENT: Positive: PERRL, Normocephaly Neck: Positive: neck supple, trachea midline. Negative: JVD/HJR Cardiac: Positive: irregularly irregular, S1/S2 Lungs: Positive: Decreased Breath Sounds Neuro: Positive: Grossly Intact Abdomen: Positive: Unremarkable, Soft, Active Bowel Sounds, Aorta, Other (Obese). Negative: Hepatosplenomegaly /Rectal: Other (Deferred) Skin: Positive: Clear Musculoskeletal: Normal Range of Motion Extremities: Present: normal - Imaging and Cardiology EKG: report reviewed (Afib with rvr) - Telemetry EKG Rhythm: Sinus Rhythm
--- NOTE | 2018-10-08 13:51 | Ultrasound Report ---
PROCEDURE: US ABDOMEN COMPLETE TECHNIQUE: Abdominal ultrasound performed. HISTORY: abd pain/Gall stones COMPARISON: None FINDINGS: No focal liver lesions are seen. There is no intra- or extrahepatic biliary dilatation. The proximal CBD is 3 mm. There are multiple dependent small shadowing gallbladder echogenicities which are consistent with cho lelithiasis. There is no gallbladder wall thickening. There is no pericholecystic fluid seen. The visualized pancreas is unremarkable. The spleen is normal. The proximal aorta appears ectatic measuring up to 3 cm. Distal aorta is obscured by bowel gas. The visualized inferior vena cava is patent. There is no hydronephrosis. The right kidney measures 11.9 x 6.3 x 7.1 cm and contains multiple cysts . Largest on the right measuring about 4.1 cm. The left kidney measures 14.2 x 5.8 x 4.7 cm and also demonstrates multiple cysts, largest measuring 4.8 cm. IMPRESSION: Cholelithiasis. Proximal aorta is ectatic measuring 3 cm AP dimension. Distal aorta is obscured by bowel gas. Numerous renal cysts. This document is electronically signed by Sheree Kaur MD., October 08 2018 01:49:53 PM ET
[2018-10-08 18:05] VITALS: BP 149/91
== END 2018-10-08 18:23 | disposition home health service (06) | DRG 551 ==
LOC: ED 09:15 → 4A 12:24
PROVIDERS: ADMIT Internal Medicine; ATTEND Internal Medicine
DX: M54.42 Lumbago with sciatica, left side (principal); E43 Unspecified severe protein-calorie malnutrition; I50.21 Acute systolic (congestive) heart failure; I48.1 Persistent atrial fibrillation; N17.9 Acute kidney failure, unspecified; J44.9 Chronic obstructive pulmonary disease, unspecified; I11.0 Hypertensive heart disease with heart failure; Z79.4 Long term (current) use of insulin; Z87.891 Personal history of nicotine dependence; E11.42 Type 2 diabetes mellitus with diabetic polyneuropathy; N40.0 Benign prostatic hyperplasia without lower urinary tract symptoms; M10.9 Gout, unspecified; K21.9 Gastro-esophageal reflux disease without esophagitis; Z68.29 Body mass index [BMI] 29.0-29.9, adult; Z86.711 Personal history of pulmonary embolism; K80.20 Calculus of gallbladder without cholecystitis without obstruction
CPT/HCPCS: 36415; 71045; 72131; 74176; 76700; 80053; 81001; 82140; 82962; 84484; 85007; 85025; 85027; 87040; 87086; 93005; 93010; 94640; 94760; 96361; 96365; 96367; 96375; G0378; J0692; J0696; J1170; J1815; J7030; J7512

== ENCOUNTER 2018-10-31 04:45 | Inpatient (IN) | payer MEDICARE ==
--- NOTE | 2018-10-31 05:51 | XRay Report ---
CHEST 1 VIEW INDICATION / CLINICAL INFORMATION: Chest Pain. COMPARISON: 10/04/2018 FINDINGS: SUPPORT DEVICES: None. HEART / MEDIASTINUM: Mild enlargement of the cardiac silhouette with pulmonary venous hypertension. LUNGS / PLEURA: Interstitial disease bilaterally. No pneumothorax. ADDITIONAL FINDINGS: No significant additional findings. IMPRESSION: 1. Cardiomegaly and mild interstitial pulmonary edema. Signer Name: Murtaza Lozano MD Signed: 10/31/2018 5:46 AM Workstation Name: [id number]
[2018-10-31 05:54] LABS: Basophils # (Auto) 0.2 K/mm3 (0.0-0.1); Basophils % (Auto) 2.4 % (0.0-1.8); Eosinophils # (Auto) 0.3 K/mm3 (0.0-0.4); Hematocrit 29.9 % (35.5-45.6); Hemoglobin 9.3 gm/dl (11.8-15.2); Lymphocytes # (Auto) 0.9 K/mm3 (1.2-5.4); Lymphocytes % (Auto) 13.2 % (13.4-35.0); Mean Corpuscular HGB Conc 31 % (32-34); Mean Corpuscular Volume 71 fl (84-94); Monocytes # (Auto) 0.6 K/mm3 (0.0-0.8); Monocytes % (Auto) 9.4 % (0.0-7.3); Platelet Count 217 K/mm3 (140-440); Red Blood Count 4.24 M/mm3 (3.65-5.03)
[2018-10-31 06:19] LABS: Blood Urea Nitrogen 11 mg/dL (9-20)
[2018-10-31 06:20] LABS: BUN/Creatinine Ratio 8; Hemolysis Index 161
[2018-10-31 06:26] LABS: Mean Corpuscular Hemoglobin 22 pg (28-32)
--- NOTE | 2018-10-31 08:37 | Emergency Department Report ---
ED Shortness of Breath HPI - General Chief Complaint: Dyspnea/Respdistress Stated Complaint: SOB/GENERAL ILLNESS Time Seen by Provider: 10/31/18 08:30 Source: patient, EMS Mode of arrival: Stretcher Limitations: No Limitations - History of Present Illness Initial Comments: Patient is a 68-year-old male that presents to the emergency room with complaints of shortness of breath, dyspnea on exertion and difficulty breathing. He states his symptoms are yesterday morning and worsening. Patient states he discharged on exertion is debilitating's unable to move at all. Patient denies chest pain. Patient denies fever. He denies the need for home O2. Patient states compliant with all medications. Patient states had a history of diabetes, CHF and COPD. MD Complaint: shortness of breath, cough -: Sudden Severity: severe Consistency: constant Improves With: rest, upright position Worsens With: lying flat, exertion Known History Of: congestive heart failure Associated Symptoms: orhopnia Treatments Prior to Arrival: none - Related Data Home Oxygen Therapy: No Home Medications Medication Instructions Recorded Confirmed Last Taken Insulin Aspart [NovoLOG 100 5 units SUB-Q TIDAC 07/30/18 10/31/18 Unknown UNITS/ML VIAL] Insulin Glargine [Lantus VIAL] 10 units SUB-Q QHS 07/30/18 10/31/18 Unknown Ipratropium/Albuterol Sulfate 1 puff IH BID 07/30/18 10/31/18 Unknown [Combivent Respimat] Omeprazole 20 mg PO QDAY 07/30/18 10/31/18 Unknown Pregabalin [Lyrica] 50 mg PO BID 07/30/18 10/31/18 Unknown Tamsulosin [Flomax] 0.4 mg PO QDAY 07/30/18 10/31/18 Unknown Previous Rx's Medication Instructions Recorded Last Taken Type Apixaban [Eliquis] 5 mg PO BID #60 tablet 08/04/18 Unknown Rx Carvedilol [Coreg] 25 mg PO BID tablet 08/04/18 Unknown Rx traMADol [Ultram 50 MG tab] 50 mg PO Q6HR PRN #20 tablet 08/04/18 Unknown Rx Meclizine HCl [Meclizine CHEW] 25 mg PO Q8HR PRN #30 tab 09/06/18 Unknown Rx Colchicine 0.6 mg PO QDAY #30 capsule 09/28/18 Unknown Rx Pantoprazole [Protonix TAB] 40 mg PO DAILY #30 tablet 09/28/18 Unknown Rx oxyCODONE /ACETAMINOPHEN [Percocet 1 tab PO Q6HR PRN #14 tablet 09/28/18 Unknown Rx 5/325 mg] predniSONE [Deltasone] 20 mg PO QDAY #7 tablet 09/28/18 Unknown Rx oxyCODONE /ACETAMINOPHEN [Percocet 1 tab PO TID #6 tablet 10/08/18 Unknown Rx 5/325] Allergies Allergy/AdvReac Type Severity Reaction Status Date / Time No Known Allergies Allergy Verified 05/05/18 23:54 ED Review of Systems ROS: Stated complaint: SOB/GENERAL ILLNESS Other details as noted in HPI Constitutional: denies: chills, fever Eyes: denies: eye pain, eye discharge, vision change ENT: denies: ear pain, throat pain Respiratory: cough, shortness of breath, SOB with exertion, SOB at rest. denies: wheezing Cardiovascular: denies: chest pain, palpitations Endocrine: no symptoms reported Gastrointestinal: denies: abdominal pain, nausea, diarrhea Genitourinary: denies: urgency, dysuria Musculoskeletal: denies: back pain, joint swelling, arthralgia Skin: denies: rash, lesions Neurological: denies: headache, weakness, paresthesias Psychiatric: denies: anxiety, depression Hematological/Lymphatic: denies: easy bleeding, easy bruising ED Past Medical Hx - Past Medical History Previous Medical History?: Yes Hx Hypertension: Yes Hx Congestive Heart Failure: Yes Hx Diabetes: Yes Hx Deep Vein Thrombosis: Yes (both legs) Hx Pulmonary Embolism: Yes ([place] lungs) Hx Kidney Stones: Yes Hx Asthma: No Hx COPD: Yes Additional medical history: neuropathy. a-fib - Surgical History Past Surgical History?: Yes Additional Surgical History: neck and back surgery 2011 - Family History Family history: no significant - Social History Smoking Status: Former Smoker Substance Use Type: None - Medications Home Medications: Home Medications Medication Instructions Recorded Confirmed Last Taken Type Insulin Aspart [NovoLOG 100 5 units SUB-Q TIDAC 07/30/18 10/31/18 Unknown History UNITS/ML VIAL] Insulin Glargine [Lantus VIAL] 10 units SUB-Q QHS 07/30/18 10/31/18 Unknown History Ipratropium/Albuterol Sulfate 1 puff IH BID 07/30/18 10/31/18 Unknown History [Combivent Respimat] Omeprazole 20 mg PO QDAY 07/30/18 10/31/18 Unknown History Pregabalin [Lyrica] 50 mg PO BID 07/30/18 10/31/18 Unknown History Tamsulosin [Flomax] 0.4 mg PO QDAY 07/30/18 10/31/18 Unknown History Apixaban [Eliquis] 5 mg PO BID #60 tablet 08/04/18 10/31/18 Unknown Rx Carvedilol [Coreg] 25 mg PO BID tablet 08/04/18 10/31/18 Unknown Rx traMADol [Ultram 50 MG tab] 50 mg PO Q6HR PRN #20 tablet 08/04/18 10/31/18 Unknown Rx Meclizine HCl [Meclizine CHEW] 25 mg PO Q8HR PRN #30 tab 09/06/18 10/31/18 Unknown Rx Colchicine 0.6 mg PO QDAY #30 capsule 09/28/18 10/31/18 Unknown Rx Pantoprazole [Protonix TAB] 40 mg PO DAILY #30 tablet 09/28/18 10/31/18 Unknown Rx oxyCODONE /ACETAMINOPHEN [Percocet 1 tab PO Q6HR PRN #14 tablet 09/28/18 10/31/18 Unknown Rx 5/325 mg] predniSONE [Deltasone] 20 mg PO QDAY #7 tablet 09/28/18 10/31/18 Unknown Rx oxyCODONE /ACETAMINOPHEN [Percocet 1 tab PO TID #6 tablet 10/08/18 10/31/18 Unknown Rx 5/325] ED Physical Exam - General Limitations: No Limitations General appearance: alert, in no apparent distress - Head Head exam: Present: atraumatic, normocephalic - Eye Eye exam: Present: normal appearance, PERRL Pupils: Present: normal accommodation - ENT ENT exam: Present: mucous membranes moist - Neck Neck exam: Present: normal inspection - Respiratory Respiratory exam: Present: normal lung sounds bilaterally, rales. Absent: respiratory distress, wheezes - Cardiovascular Cardiovascular Exam: Present: regular rate, normal rhythm. Absent: systolic murmur, diastolic murmur, rubs, gallop - GI/Abdominal GI/Abdominal exam: Present: soft, normal bowel sounds. Absent: distended, tenderness, guarding - Rectal Rectal exam: Present: deferred - Extremities Exam Extremities exam: Present: normal inspection - Back Exam Back exam: Present: normal inspection - Neurological Exam Neurological exam: Present: alert, oriented X3 - Psychiatric Psychiatric exam: Present: normal affect, normal mood - Skin Skin exam: Present: warm, dry, intact, normal color. Absent: rash ED Course Vital Signs 10/31/18 10/31/18 10/31/18 05:16 05:20 05:27 Pulse Rate 116 H 116 H 118 H Respiratory 28 H 28 H Rate Blood Pressure 167/103 Blood Pressure 167/103 [Left] O2 Sat by Pulse 96 95 Oximetry 10/31/18 10/31/18 10/31/18 07:00 10:30 10:41 Pulse Rate 111 H 105 H Respiratory 22 15 Rate Blood Pressure Blood Pressure 157/111 [Left] O2 Sat by Pulse 93 92 Oximetry 10/31/18 10/31/18 10/31/18 10:51 11:01 11:11 Pulse Rate 121 H 111 H 122 H Respiratory 22 27 H 25 H Rate Blood Pressure 165/88 161/96 161/96 Blood Pressure [Left] O2 Sat by Pulse 96 97 96 Oximetry - Reevaluation(s) Reevaluation #1: Patient in A. fib RVR. Patient will be placed on a Cardizem drip and given a Cardizem bolus. Patient also given IV Lasix. Discussed plan with the patient. Patient agrees with plan. Patient was admitted to the hospitalist service. Discussed all results with patient. 10/31/18 08:51 - Consultations Consultation #1: Hospitalist service consult for admission. Hospitalist to admit patient and assume care of patient. Bridging orders were placed 10/31/18 08:48 Consultation #2: Dr. Cerda consulted. Dr. Cerda agrees with admission to ICU 10/31/18 11:05 10/31/18 15:35 ED Medical Decision Making - Lab Data Result diagrams: 10/31/18 05:45 10/31/18 05:45 - EKG Data -: EKG Interpreted by Me EKG shows normal: axis, intervals, QRS complexes, ST-T waves Rate: tachycardia - EKG Data Interpretation: other (afib ) - Radiology Data Radiology results: report reviewed, image reviewed interpreted by me: CHF changes CHEST 1 VIEW INDICATION / CLINICAL INFORMATION: Chest Pain. COMPARISON: 10/04/2018 FINDINGS: SUPPORT DEVICES: None. HEART / MEDIASTINUM: Mild enlargement of the cardiac silhouette with pulmonary venous hypertension. LUNGS / PLEURA: Interstitial disease bilaterally. No pneumothorax. ADDITIONAL FINDINGS: No significant additional findings. IMPRESSION: 1. Cardiomegaly and mild interstitial pulmonary edema. - Medical Decision Making Patient is 5-year-old male presents emergency room with complaints of shortness of breath, difficulty breathing and dyspnea on exertion. Patient states his LOPEZ is debilitating. Patient states symptoms worsen prior to coming to ER. Patient in the ER found to have A. fib RVR and was placed on a Cardizem drip and given a Cardizem bolus prior to the drip. Patient also given Lasix for CHF. Patient's chest x-ray shows pulmonary edema and CSF changes. Patient's BNP elevated. Patient placed on oxygen immediately upon arrival in the ER. Patient's labs unremarkable except for anemia and high bnp - Differential Diagnosis chf. afib. kalpesh Critical Care Time: Yes Critical care attestation.: If time is entered above; I have spent that time in minutes in the direct care of this critically ill patient, excluding procedure time. Critical Care Time: 35 minutes ED Disposition Clinical Impression: Atrial fibrillation with RVR, Shortness of breath, Tachycardia Atrial fibrillation Qualifiers: Atrial fibrillation type: unspecified Qualified Code(s): I48.91 - Unspecified atrial fibrillation CHF exacerbation Qualifiers: Heart failure type: unspecified Qualified Code(s): I50.9 - Heart failure, unspecified Dyspnea Qualifiers: Dyspnea type: dyspnea on exertion Qualified Code(s): R06.09 - Other forms of dyspnea Anemia Qualifiers: Anemia type: unspecified type Qualified Code(s): D64.9 - Anemia, unspecified CHF (congestive heart failure) Qualifiers: Heart failure type: unspecified Heart failure chronicity: acute on chronic Qualified Code(s): I50.9 - Heart failure, unspecified Disposition: OP ADMIT IP TO THIS HOSP Is pt being admited?: Yes Does the pt Need Aspirin: No Condition: Critical Time of Disposition: 08:55
[2018-10-31] MEDS ORDERED: CARDIZEM IV ONE (08:49)
[2018-10-31] MEDS ORDERED: LASIX IV ONE (08:50)
[2018-10-31] MEDS ORDERED: CARDIZEM/D5W 100MG/100ML 100 MG/100 ML BAG IV SCH (09:00)
--- NOTE | 2018-10-31 11:41 | History and Physical Report ---
History of Present Illness Date of examination: 10/31/18 Date of admission: 10/31/18 08:53 Chief complaint: SOB History of present illness: Patient is a 68 yo man with a history of IDDM with peripheral neuropathy, Afib, PE, DVT on Coumadin, GIB on Xarelto, AOCD, CHF, hypertension, Gout, COPD/former smoker quit 10 years ago, GERD and BPH who presents to [facility] ED with worsening severe acute onset of SOB upon waking this morning. He admits to missing Lasix dosing because of his limited mobility and inability to get to restroom to urinate. He has degenerative spinal disease on CT scan done last month. He also admits to skipping other medications also. He denies cp, n/v/palpitations/new cough/abd pains. He was just discharged from here on 10/08/18. In the ED, he was found to be in acute CHF and AFib with RVR. He will be admitted to ICU on IV cardizem drip for the afib with RVR. PMH: as hpi, also Cholelithiasis PSH: Colonoscopy on 09/2018 with 6mm sessile polyp removed from descending colon, Neck and back surgery in 2011 SH: ex tobacco smoker, denies ETOH/illicit drug abuse FH: His mother in late 40s of heart attack, hypertension and DM runs in the family ROS: Constitutional: denies: fever ENT: denies: throat or neck pain Respiratory: denies: cough, +shortness of breath Cardiovascular: denies: chest pain Endocrine: denies unexplained weight loss or gain Gastrointestinal: denies: abdominal pain, nausea Genitourinary: denies: dysuria Rectal: denies no incontinence, no bleeding, no itching, no discharge Musculoskeletal: +bilateral leg swelling, +low back myaglia, muscle weakness +arthritis Skin: denies: rash Neurological: denies: headache Hematological/Lymphatic: denies: easy bleeding or easy bruising Allergic/Immunologic: no urticaria, no allergic rhinitis, no anaphylaxis Psych: denies sadness or hopelessness, SI/HI Medications and Allergies Allergies Allergy/AdvReac Type Severity Reaction Status Date / Time No Known Allergies Allergy Verified 05/05/18 23:54 Home Medications Medication Instructions Recorded Confirmed Last Taken Type Insulin Aspart [NovoLOG 100 5 units SUB-Q TIDAC 07/30/18 10/31/18 Unknown History UNITS/ML VIAL] Insulin Glargine [Lantus VIAL] 10 units SUB-Q QHS 07/30/18 10/31/18 Unknown History Ipratropium/Albuterol Sulfate 1 puff IH BID 07/30/18 10/31/18 Unknown History [Combivent Respimat] Omeprazole 20 mg PO QDAY 07/30/18 10/31/18 Unknown History Pregabalin [Lyrica] 50 mg PO BID 07/30/18 10/31/18 Unknown History Tamsulosin [Flomax] 0.4 mg PO QDAY 07/30/18 10/31/18 Unknown History Apixaban [Eliquis] 5 mg PO BID #60 tablet 08/04/18 10/31/18 Unknown Rx Carvedilol [Coreg] 25 mg PO BID tablet 08/04/18 10/31/18 Unknown Rx traMADol [Ultram 50 MG tab] 50 mg PO Q6HR PRN #20 tablet 08/04/18 10/31/18 Unknown Rx Meclizine HCl [Meclizine CHEW] 25 mg PO Q8HR PRN #30 tab 09/06/18 10/31/18 Unknown Rx Colchicine 0.6 mg PO QDAY #30 capsule 09/28/18 10/31/18 Unknown Rx Pantoprazole [Protonix TAB] 40 mg PO DAILY #30 tablet 09/28/18 10/31/18 Unknown Rx oxyCODONE /ACETAMINOPHEN [Percocet 1 tab PO Q6HR PRN #14 tablet 09/28/18 10/31/18 Unknown Rx 5/325 mg] predniSONE [Deltasone] 20 mg PO QDAY #7 tablet 09/28/18 10/31/18 Unknown Rx oxyCODONE /ACETAMINOPHEN [Percocet 1 tab PO TID #6 tablet 10/08/18 10/31/18 Unknown Rx 5/325] Active Meds: Active Medications Diltiazem HCl (Cardizem/D5w 100mg/100ml) 100 mg in 100 mls @ 5 mls/hr IV TITR JERRY; Protocol Exam - Physical Exam Narrative exam: Gen: chronically disable, NAD, Awake, Alert, Orientated HEENT: NCAT, EOMI, PERRL, OP Clear Neck: supple, no adenopathy, no thyromegaly, + JVD CVS/Heart: irregular irregular, normal S1S2, pulses present bilaterally Chest/Lungs: diminished bs bilaterallly, Symmetrical chest expansion, good air entry bilaterally GI/Abdomen: soft, NTND, good bowel sounds, no guarding or rebound /Bladder: no suprapubic tenderness, no CVA or paraspinal tenderness Extermity/Skin: +2 ble pitting edema, no obvious rash MSK: FROM x 4 Neuro: CN 2-12 grossly intact, no new focal deficits Psych: calm - Constitutional Vitals: Temp Pulse Resp BP Pulse Ox 105 H 41 H 161/96 96 10/31/18 11:21 10/31/18 11:21 10/31/18 11:21 10/31/18 11:21 Results - Labs CBC & Chem 7: 10/31/18 05:45 10/31/18 05:45 Labs: Abnormal lab results 10/31/18 10/31/18 10/31/18 Range/Units 05:45 05:45 05:45 Hgb 9.3 L (11.8-15.2) gm/dl Hct 29.9 L (35.5-45.6) % MCV 71 L (84-94) fl MCH 22 L (28-32) pg MCHC 31 L (32-34) % RDW 20.0 H (13.2-15.2) % Lymph % (Auto) 13.2 L (13.4-35.0) % [facility] % (Auto) 9.4 H (0.0-7.3) % Eos % (Auto) 5.0 H (0.0-4.3) % Baso % (Auto) 2.4 H (0.0-1.8) % Lymph # 0.9 L (1.2-5.4) K/mm3 Baso # 0.2 H (0.0-0.1) K/mm3 Glucose 136 H (75-100) mg/dL NT-Pro-B Natriuret Pep 6280 H (0-900) pg/mL Assessment and Plan Patient is a 68 yo man with a history of IDDM with peripheral neuropathy, Afib, PE, DVT on Coumadin, GIB on Xarelto, AOCD, CHF, hypertension, Gout, COPD/former smoker quit 10 years ago, GERD and BPH who presents to [facility] ED with worsening severe acute onset of SOB upon waking this morning. He admits to missing Lasix dosing because of his limited mobility and inability to get to restroom to urinate. He has degenerative spinal disease on CT scan done last month. He also admits to skipping other medications also. He denies cp, n/v/palpitations/new cough/abd pains. He was just discharged from here on 10/08/18. In the ED, he was found to be in acute CHF and AFib with RVR. He will be admitted to ICU on IV cardizem drip for the afib with RVR. * Echo done 04/2018 showed EF 40-45%, mild MR, trace TR, mild pulm HTN RVSP 44mmHg. * pCXR Impression: Cardiomegaly and mild interstitial pulmonary edema -Acute on chronic systolic heart failure due to afib rvr due to noncompliance: Counseling done, Consulted Cardiology, treat with iv lasix and monitor renal function with daily bmp, repeat ECHO -AFib with RVR: on iv Cardizem, on Coumadin, check PT/INR -H/o bilateral PE/leg DVT: continue Anticoagulation -IDDM with complication of peripheral neuropathy: continue gabapentin, treat with insulin, ssi, accucheck, ada diet, last a1c was 6.2 on 09/22/18 -AOCD: monitor cbc closely, check coags -Hypertensive heart disease: continue medical management -Gout by h/o: continue colchine -COPD by h/o: prn nebs -BPH by h/o: flomax -GERD: ppi CCT 32 minutes
[2018-10-31] MEDS ORDERED: ULTRAM PO PRN (11:49)
[2018-10-31] MEDS ORDERED: MECLIZINE HCL 25 MG PO PRN (11:49)
[2018-10-31] MEDS ORDERED: PERCOCET 5/325 PO PRN (11:49)
[2018-10-31] MEDS ORDERED: D50W (25GM) Syringe IV PRN (11:55)
[2018-10-31] MEDS ORDERED: NON-FORMULARY (Omeprazole [Omeprazole] 20 MG) PO SCH (12:00)
[2018-10-31] MEDS ORDERED: COREG PO SCH (12:00)
[2018-10-31] MEDS ORDERED: NON-FORMULARY (Pregabalin [Lyrica] 50 MG) PO SCH (12:00)
[2018-10-31] MEDS ORDERED: ANTIVERT PO PRN (12:16)
[2018-10-31] MEDS: COREG PO SCH ×2 (13:00→22:09)
--- NOTE | 2018-10-31 13:00 | Consultation ---
History of Present Illness - Reason for Consult Consult date: 10/31/18 Afib with RVR Requesting physician: MIGUEL MCNAMARA III - History of Present Illness 68 y/o male with known AFib and RVR in the past, recently moved from [place] to here and has been admitted 4x this year alone presents with Afib with RVR and shortness of breath. Per patient misses several lasix doses. Was givn lasix in ED and started on Dilt drip. Rate is better controlled now. Takes Coreg 25 BID at home Past History Past Medical History: COPD, diabetes, GERD, heart failure, hypertension, other (DVT in past and gout and BPH) Social history: smoking (quit 10 years ago) Medications and Allergies Allergies Allergy/AdvReac Type Severity Reaction Status Date / Time No Known Allergies Allergy Verified 05/05/18 23:54 Home Medications Medication Instructions Recorded Confirmed Last Taken Type Insulin Aspart [NovoLOG 100 5 units SUB-Q TIDAC 07/30/18 10/31/18 Unknown History UNITS/ML VIAL] Insulin Glargine [Lantus VIAL] 10 units SUB-Q QHS 07/30/18 10/31/18 Unknown History Ipratropium/Albuterol Sulfate 1 puff IH BID 07/30/18 10/31/18 Unknown History [Combivent Respimat] Omeprazole 20 mg PO QDAY 07/30/18 10/31/18 Unknown History Pregabalin [Lyrica] 50 mg PO BID 07/30/18 10/31/18 Unknown History Tamsulosin [Flomax] 0.4 mg PO QDAY 07/30/18 10/31/18 Unknown History Apixaban [Eliquis] 5 mg PO BID #60 tablet 08/04/18 10/31/18 Unknown Rx Carvedilol [Coreg] 25 mg PO BID tablet 08/04/18 10/31/18 Unknown Rx traMADol [Ultram 50 MG tab] 50 mg PO Q6HR PRN #20 tablet 08/04/18 10/31/18 Unknown Rx Meclizine HCl [Meclizine CHEW] 25 mg PO Q8HR PRN #30 tab 09/06/18 10/31/18 Unknown Rx Colchicine 0.6 mg PO QDAY #30 capsule 09/28/18 10/31/18 Unknown Rx Pantoprazole [Protonix TAB] 40 mg PO DAILY #30 tablet 09/28/18 10/31/18 Unknown Rx oxyCODONE /ACETAMINOPHEN [Percocet 1 tab PO Q6HR PRN #14 tablet 09/28/18 10/31/18 Unknown Rx 5/325 mg] predniSONE [Deltasone] 20 mg PO QDAY #7 tablet 09/28/18 10/31/18 Unknown Rx oxyCODONE /ACETAMINOPHEN [Percocet 1 tab PO TID #6 tablet 10/08/18 10/31/18 Unkn own Rx 5/325] Active Meds: Active Medications Albuterol/Ipratropium (Duoneb *Not For Prn Use*) 1 ampul IH BIDRT JERRY Apixaban (Eliquis) 5 mg PO BID JERRY; Protocol Carvedilol (Coreg) 25 mg PO Q12HR JERRY Carvedilol (Coreg) 25 mg PO BID JERRY Dextrose (D50w (25gm) Syringe) 50 ml IV PRN PRN PRN Reason: Hypoglycemia Furosemide (Lasix) 40 mg IV 0600,1800 JERRY Diltiazem HCl (Cardizem/D5w 100mg/100ml) 100 mg in 100 mls @ 5 mls/hr IV TITR JERRY; Protocol Insulin Glargine (Lantus) 10 units SUB-Q QHS JERRY Insulin Human Lispro (Humalog) 0 unit SUB-Q ACHS JERRY; Protocol Insulin Human Lispro (Humalog) 5 unit SUB-Q AC JERRY Meclizine HCl (Antivert) 25 mg PO Q8H PRN PRN Reason: Vertigo Oxycodone/Acetaminophen (Percocet 5/325) 1 tab PO Q6HR PRN PRN Reason: Pain Pantoprazole Sodium (Protonix) 20 mg PO QDAY JERRY Prednisone (Deltasone) 20 mg PO QDAY JERRY Pregabalin (Lyrica) 50 mg PO BID JERRY Tamsulosin HCl (Flomax) 0.4 mg PO QHS JERRY Tramadol HCl (Ultram) 50 mg PO Q6HR PRN PRN Reason: Pain Review of Systems All systems: negative Exam - Constitutional Vitals: Temp Pulse Resp BP Pulse Ox 105 H 41 H 161/96 96 10/31/18 11:21 10/31/18 11:21 10/31/18 11:21 10/31/18 11:21 Results - Labs CBC & Chem 7: 10/31/18 05:45 10/31/18 05:45 Labs: Abnormal lab results 10/31/18 10/31/18 10/31/18 Range/Units 05:45 05:45 05:45 Hgb 9.3 L (11.8-15.2) gm/dl Hct 29.9 L (35.5-45.6) % MCV 71 L (84-94) fl MCH 22 L (28-32) pg MCHC 31 L (32-34) % RDW 20.0 H (13.2-15.2) % Lymph % (Auto) 13.2 L (13.4-35.0) % [place] % (Auto) 9.4 H (0.0-7.3) % Eos % (Auto) 5.0 H (0.0-4.3) % Baso % (Auto) 2.4 H (0.0-1.8) % Lymph # 0.9 L (1.2-5.4) K/mm3 Baso # 0.2 H (0.0-0.1) K/mm3 Glucose 136 H (75-100) mg/dL NT-Pro-B Natriuret Pep 6280 H (0-900) pg/mL - Imaging and Cardiology Chest x-ray: image reviewed (cardiomegaly and pulmonary edema) Assessment and Plan 68 y/o male with afib with rvr and worsening shortness of breath, both likely secondary to volume overload from noncompliance with diuretic therapy. 1. Agree with BID IV lasix therapy 2. Agree with restarting home dose of coreg] 3. Will speak with patient about home COPD regimen and make necessary adjustments
[2018-10-31 13:46] LABS: INR 1.47 (0.87-1.13)
[2018-10-31 13:47] LABS: Partial Thromboplastin Time 33.2 Sec. (24.2-36.6)
[2018-10-31] MEDS: LYRICA PO SCH ×2 (13:51→21:47)
[2018-10-31] MEDS: PROTONIX PO SCH (13:51)
[2018-10-31] MEDS ORDERED: INSULIN ASPART 5 UNIT SUB-Q SCH (16:30)
[2018-10-31] MEDS: HumaLOG SUB-Q SCH ×3 (17:34→22:08)
[2018-10-31] MEDS: LASIX IV SCH (17:35)
[2018-10-31] MEDS: DUONEB *Not for PRN Use IH SCH (20:28)
[2018-10-31] MEDS: FLOMAX PO SCH (21:45)
[2018-10-31] MEDS: ELIQUIS PO SCH (21:45)
[2018-10-31] MEDS ORDERED: NON-FORMULARY (Ipratropium/Albuterol Sulfate [Combivent Respimat] 1 PUFF) IH SCH (22:00)
[2018-10-31] MEDS: LANTUS SUB-Q SCH (22:08)
[2018-11-01] MEDS: LASIX IV SCH ×2 (06:08→17:44)
[2018-11-01 06:26] LABS: Hematocrit 27.9 % (35.5-45.6); Hemoglobin 8.7 gm/dl (11.8-15.2); Mean Corpuscular HGB Conc 31 % (32-34); Mean Corpuscular Volume 72 fl (84-94); Platelet Count 211 K/mm3 (140-440); Red Blood Count 3.91 M/mm3 (3.65-5.03); Red Cell Distribution Width 19.9 % (13.2-15.2)
[2018-11-01 06:41] LABS: Alanine Aminotransferase 8 units/L (7-56); Albumin 3.1 g/dL (3.9-5); BUN/Creatinine Ratio 10; Blood Urea Nitrogen 13 mg/dL (9-20); Calcium 9.1 mg/dL (8.4-10.2); Hemolysis Index 0
[2018-11-01 06:42] LABS: Mean Corpuscular Hemoglobin 22 pg (28-32)
[2018-11-01] MEDS: DUONEB *Not for PRN Use IH SCH ×2 (08:14→19:16)
[2018-11-01] MEDS: HumaLOG SUB-Q SCH ×7 (08:23→22:07)
[2018-11-01] MEDS: PROTONIX PO SCH (09:57)
[2018-11-01] MEDS: COREG PO SCH (09:57)
[2018-11-01] MEDS: DELTASONE PO SCH (09:57)
[2018-11-01] MEDS: ELIQUIS PO SCH ×2 (09:57→22:07)
[2018-11-01] MEDS: LYRICA PO SCH ×2 (09:58→22:07)
[2018-11-01] MEDS ORDERED: K-DUR PO ONE (10:00)
--- NOTE | 2018-11-01 11:28 | Consultation ---
History of Present Illness Consult date: 11/01/18 Requesting physician: GUNNAR COPELAND Consult reason: atrial fibrillation, congestive heart failure History of present illness: The pt is a 68 YO male with a past medical history of persistent atrial fibrillation, DVT and PE, anticoagulated with Eliquis, HF, HTN, DM, HLP, COPD, gout. He has been seen by our practice on prior admissions and is regularly followed by [place] [facility]. He presented with c/o SOB and palpitations for 1 day prior to arrival. He denies any chest pain, n/v, diaphoresis, dizziness or syncope. He reports full compliance with Eliquis but has "missed a few days" of some of his other prescription medications. Following arrival, he was found to be in AFib with RVR and was initiated on cardizem gtt. On evaluation, he is in AFib with HR 100s, currently weaned off cardizem gtt. Echo done 04/2018 showed EF 40-45%, mild MR, trace TR, mild pulm HTN RVSP 44mmHg. Past History Past Medical History: atrial fib, COPD, diabetes, GERD, heart failure, hypertension, other (DVT in past and gout and BPH) Social history: smoking (quit 10 years ago) Medications and Allergies Allergies Allergy/AdvReac Type Severity Reaction Status Date / Time No Known Allergies Allergy Verified 05/05/18 23:54 Home Medications Medication Instructions Recorded Confirmed Last Taken Type Insulin Aspart [NovoLOG 100 5 units SUB-Q TIDAC 07/30/18 10/31/18 Unknown History UNITS/ML VIAL] Insulin Glargine [Lantus VIAL] 10 units SUB-Q QHS 07/30/18 10/31/18 Unknown History Ipratropium/Albuterol Sulfate 1 puff IH BID 07/30/18 10/31/18 Unknown History [Combivent Respimat] Omeprazole 20 mg PO QDAY 07/30/18 10/31/18 Unknown History Pregabalin [Lyrica] 50 mg PO BID 07/30/18 10/31/18 Unknown History Tamsulosin [Flomax] 0.4 mg PO QDAY 07/30/18 10/31/18 Unknown History Apixaban [Eliquis] 5 mg PO BID #60 tablet 08/04/18 10/31/18 Unknown Rx Carvedilol [Coreg] 25 mg PO BID tablet 08/04/18 10/31/18 Unknown Rx traMADol [Ultram 50 MG tab] 50 mg PO Q6HR PRN #20 tablet 08/04/18 10/31/18 Unknown Rx Meclizine HCl [Meclizine CHEW] 25 mg PO Q8HR PRN #30 tab 09/06/18 10/31/18 Unknown Rx Colchicine 0.6 mg PO QDAY #30 capsule 09/28/18 10/31/18 Unknown Rx Pantoprazole [Protonix TAB] 40 mg PO DAILY #30 tablet 09/28/18 10/31/18 Unknown Rx oxyCODONE /ACETAMINOPHEN [Percocet 1 tab PO Q6HR PRN #14 tablet 09/28/18 10/31/18 Unknown Rx 5/325 mg] predniSONE [Deltasone] 20 mg PO QDAY #7 tablet 09/28/18 10/31/18 Unknown Rx oxyCODONE /ACETAMINOPHEN [Percocet 1 tab PO TID #6 tablet 10/08/18 10/31/18 Unknown Rx 5/325] Active Meds: Active Medications Albuterol/Ipratropium (Duoneb *Not For Prn Use*) 1 ampul IH BIDRT [facility] Last Admin: 11/01/18 08:14 Dose: 1 ampul Documented by: Apixaban (Eliquis) 5 mg PO BID [facility]; Protocol Last Admin: 11/01/18 09:57 Dose: 5 mg Documented by: Carvedilol (Coreg) 25 mg PO Q12HR [facility] Last Admin: 11/01/18 09:57 Dose: 25 mg Documented by: Dextrose (D50w (25gm) Syringe) 50 ml IV PRN PRN PRN Reason: Hypoglycemia Furosemide (Lasix) 40 mg IV 0600,1800 [facility] Last Admin: 11/01/18 06:08 Dose: 40 mg Documented by: Diltiazem HCl (Cardizem/D5w 100mg/100ml) 100 mg in 100 mls @ 5 mls/hr IV TITR [facility]; Protocol Last Titration: 10/31/18 15:00 Dose: 0 mg/hr, 0 mls/hr Documented by: Insulin Glargine (Lantus) 10 units SUB-Q QHS [facility] Last Admin: 10/31/18 22:08 Dose: 10 units Documented by: Insulin Human Lispro (Humalog) 0 unit SUB-Q ACHS [facility]; Protocol Last Admin: 11/01/18 08:23 Dose: Not Given Documented by: Insulin Human Lispro (Humalog) 5 unit SUB-Q AC [facility] Last Admin: 11/01/18 09:35 Dose: Not Given Documented by: Meclizine HCl (Antivert) 25 mg PO Q8H PRN PRN Reason: Vertigo Oxycodone/Acetaminophen (Percocet 5/325) 1 tab PO Q6HR PRN PRN Reason: Pain Last Admin: 10/31/18 21:45 Dose: 1 tab Documented by: Pantoprazole Sodium (Protonix) 20 mg PO QDAY [facility] Last Admin: 11/01/18 09:57 Dose: 20 mg Documented by: Prednisone (Deltasone) 20 mg PO QDAY [facility] Last Admin: 11/01/18 09:57 Dose: 20 mg Documented by: Pregabalin (Lyrica) 50 mg PO BID [facility] Last Admin: 11/01/18 09:58 Dose: 50 mg Documented by: Tamsulosin HCl (Flomax) 0.4 mg PO QHS [facility] Last Admin: 10/31/18 21:45 Dose: 0.4 mg Documented by: Tramadol HCl (Ultram) 50 mg PO Q6HR PRN PRN Reason: Pain Last Admin: 10/31/18 13:50 Dose: 50 mg Documented by: Review of Systems Constitutional: no weight loss, no weight gain, no fever, no chills, no sweats Ears, nose, mouth and throat: no ear pain, no nose pain, no sinus pressure, no sinus pain Cardiovascular: palpitations, rapid/irregular heart beat, shortness of breath, dyspnea on exertion, no chest pain, no orthopnea, no edema, no syncope, no lightheadedness, no high blood pressure, no leg edema Respiratory: shortness of breath, dyspnea on exertion, no cough, no congestion, no wheezing, no pain on inspiration Gastrointestinal: no abdominal pain, no nausea, no vomiting, no diarrhea, no constipation, no change in bowel habits Genitourinary Male: no dysuria, no hematuria, no flank pain, no discharge, no urinary frequency, no urinary hesitancy Musculoskeletal: no neck stiffness, no neck pain, no shooting arm pain, no arm numbness/tingling, no low back pain, no shooting leg pain Integumentary: no rash, no pruritis, no redness, no sores, no wounds Neurological: no head injury, no paralysis, no weakness, no parathesias, no numbness, no tingling, no seizures, no syncope Psychiatric: no anxiety Endocrine: no cold intolerance, no heat intolerance Hematologic/Lymphatic: no easy bruising, no easy bleeding Allergic/Immunologic: no urticaria, no wheezing Physical Examination Vital Signs Pulse Resp BP Pulse Ox 116 H 28 H 167/103 96 10/31/18 05:16 10/31/18 05:16 10/31/18 05:16 10/31/18 05:16 General appearance: no acute distress HEENT: Positive: PERRL, Normocephaly, Mucus Membranes Moist Neck: Positive: neck supple, trachea midline Cardiac: Positive: irregularly irregular, S1/S2 Lungs: Positive: Decreased Breath Sounds Neuro: Positive: Grossly Intact Abdomen: Negative: Tender Skin: Negative: Rash Musculoskeletal: No Pain Extremities: Absent: edema Results 11/01/18 05:30 11/01/18 05:30 Cardiac Enzymes 11/01/18 Range/Units 05:30 AST 11 (5-40) units/L Coagulation 10/31/18 Range/Units 13:08 PT 17.5 H (12.2-14.9) Sec. INR 1.47 H (0.87-1.13) APTT 33.2 (24.2-36.6) Sec. CBC 11/01/18 Range/Units 05:30 WBC 4.8 (4.5-11.0) K/mm3 RBC 3.91 (3.65-5.03) M/mm3 Hgb 8.7 L (11.8-15.2) gm/dl Hct 27.9 L (35.5-45.6) % Plt Count 211 (140-440) K/mm3 Comprehensive Metabolic Panel 11/01/18 Range/Units 05:30 Sodium 144 (137-145) mmol/L Potassium 3.3 L D (3.6-5.0) mmol/L Chloride 102.7 (98-107) mmol/L Carbon Dioxide 30 (22-30) mmol/L BUN 13 (9-20) mg/dL Creatinine 1.3 (0.8-1.5) mg/dL Glucose 86 (75-100) mg/dL Calcium 9.1 (8.4-10.2) mg/dL AST 11 (5-40) units/L ALT 8 (7-56) units/L Alkaline Phosphatase 62 (35-129) units/L Total Protein 7.1 (6.3-8.2) g/dL Albumin 3.1 L (3.9-5) g/dL - Imaging and Cardiology Echo: report reviewed ( 04/2018 showed EF 40-45%, mild MR, trace TR, mild pulm HTN RVSP 44mmHg.) EKG: report reviewed, image reviewed EKG interpretations - Telemetry EKG Rhythm: Atrial Fibrillation - EKG Supraventricular dysrhythmia: atrial fibrillation Assessment and Plan F/u echo reviewed - EF 25-30%, impaired relaxation, mild to mod MR, trace TR, mild [place]. Echo done 04/2018 showed EF 40-45%, mild MR, trace TR, mild pulm HTN RVSP 44mmHg. Will plan for stress test to r/o ischemic CMP once medically stabilized. Optimize HR - convert coreg to lopressor and titrate as tolerated. Cont GDMT and IV lasix as tolerated. Replete lytes PRN. F/u BMP in AM. The patient has been seen in conjunction with Dr. Hernandez who agrees with the assessment and plan of care. - Patient Problems (1) Atrial fibrillation with RVR Current Visit: Yes Status: Acute (2) Acute HFrEF (heart failure with reduced ejection fraction) Current Visit: Yes Status: Acute (3) Cardiomyopathy Current Visit: Yes Status: Chronic (4) Hypertension Current Visit: Yes Status: Chronic Qualifiers: Hypertension type: essential hypertension Qualified Code(s): I10 - Essential (primary) hypertension (5) Diabetes Current Visit: Yes Status: Chronic (6) Hyperlipidemia Current Visit: Yes Status: Chronic (7) COPD (chronic obstructive pulmonary disease) Current Visit: Yes Status: Chronic Qualifiers: COPD type: unspecified COPD Qualified Code(s): J44.9 - Chronic obstructive pulmonary disease, unspecified (8) History of DVT (deep vein thrombosis) Current Visit: Yes Status: Chronic (9) History of pulmonary embolism Current Visit: Yes Status: Chronic (10) Anemia Current Visit: Yes Status: Acute Qualifiers: Anemia type: unspecified type Qualified Code(s): D64.9 - Anemia, unspecified (11) Hypokalemia Current Visit: Yes Status: Acute
--- NOTE | 2018-11-01 11:34 | Progress Note ---
Assessment and Plan Assessment and plan: Patient is a 68 yo man with a history of IDDM with peripheral neuropathy, Afib, PE, DVT on Eliquis GIB on Xarelto, AOCD, CHF, hypertension, Gout, COPD/former smoker quit 10 years ago, GERD and BPH who presents to [facility] ED with worsening severe acute onset of SOB upon waking this morning. He admits to missing Lasix dosing because of his limited mobility and inability to get to restroom to urinate. He has degenerative spinal disease on CT scan done last month. He also admits to skipping other medications also. He denies cp, n/v/palpitations/new cough/abd pains. He was just discharged from here on 10/08/18. In the ED, he was found to be in acute CHF and AFib with RVR. He was admitted to ICU on IV card izem drip for the afib with RVR. * Echo done 04/2018 showed EF 40-45%, mild MR, trace TR, mild pulm HTN RVSP 44mmHg. * pCXR Impression: Cardiomegaly and mild interstitial pulmonary edema -Acute on chronic systolic heart failure due to afib rvr due to noncompliance: Counseling done, Consulted Cardiology, treat with iv lasix and monitor renal function with daily bmp, repeat ECHO -AFib with RVR: treated with iv Cardizem drip, weaned off, now on coreg, on Coumadin, check PT/INR -H/o bilateral PE/leg DVT: continue Anticoagulation -IDDM with complication of peripheral neuropathy: continue lyrica, treat with insulin, ssi, accucheck, ada diet, last a1c was 6.2 on 09/22/18 -AOCD: monitor cbc closely, check coags -Hypertensive heart disease: continue medical management -Gout by h/o: continue colchine -COPD by h/o: prn nebs -BPH by h/o: flomax -GERD: ppi History Interval history: Patient was seen and examined. Follow-up on current diagnosis of Afib with RVR. Overnight uneventful. Patient denies any chest pain, shortness breath, nausea/vomiting or severe headaches. Imaging, nursing note, chart, labs and old chart reviewed. Discussed with patient. Hospitalist Physical - Physical exam Narrative exam: Gen: chronically disable, NAD, Awake, Alert, Orientated HEENT: NCAT, EOMI, PERRL, OP Clear Neck: supple, no adenopathy, no thyromegaly, + JVD CVS/Heart: irregular irregular, normal S1S2, pulses present bilaterally Chest/Lungs: diminished bs bilaterallly, Symmetrical chest expansion, good air entry bilaterally GI/Abdomen: soft, NTND, good bowel sounds, no guarding or rebound /Bladder: no suprapubic tenderness, no CVA or paraspinal tenderness Extermity/Skin: +2 ble pitting edema, no obvious rash MSK: FROM x 4 Neuro: CN 2-12 grossly intact, no new focal deficits Psych: calm - Constitutional Vitals: Temp Pulse Resp BP Pulse Ox 98.2 F 107 H 18 157/78 93 11/01/18 03:47 11/01/18 10:00 11/01/18 08:17 11/01/18 09:57 11/01/18 08:00 Results - Labs CBC & Chem 7: 11/01/18 05:30 11/01/18 05:30 Labs: Laboratory Last Values WBC 4.8 K/mm3 (4.5-11.0) 11/01/18 05:30 RBC 3.91 M/mm3 (3.65-5.03) 11/01/18 05:30 Hgb 8.7 gm/dl (11.8-15.2) L 11/01/18 05:30 Hct 27.9 % (35.5-45.6) L 11/01/18 05:30 MCV 72 fl (84-94) L 11/01/18 05:30 MCH 22 pg (28-32) L 11/01/18 05:30 MCHC 31 % (32-34) L 11/01/18 05:30 RDW 19.9 % (13.2-15.2) H 11/01/18 05:30 Plt Count 211 K/mm3 (140-440) 11/01/18 05:30 Lymph % (Auto) 13.2 % (13.4-35.0) L 10/31/18 05:45 Hale % (Auto) 9.4 % (0.0-7.3) H 10/31/18 05:45 Eos % (Auto) 5.0 % (0.0-4.3) H 10/31/18 05:45 Baso % (Auto) 2.4 % (0.0-1.8) H 10/31/18 05:45 Lymph # 0.9 K/mm3 (1.2-5.4) L 10/31/18 05:45 Hale # 0.6 K/mm3 (0.0-0.8) 10/31/18 05:45 Eos # 0.3 K/mm3 (0.0-0.4) 10/31/18 05:45 Baso # 0.2 K/mm3 (0.0-0.1) H 10/31/18 05:45 Seg Neutrophils % 70.0 % (40.0-70.0) 10/31/18 05:45 Seg Neutrophils # 4.6 K/mm3 (1.8-7.7) 10/31/18 05:45 PT 17.5 Sec. (12.2-14.9) H 10/31/18 13:08 INR 1.47 (0.87-1.13) H 10/31/18 13:08 APTT 33.2 Sec. (24.2-36.6) 10/31/18 13:08 Sodium 144 mmol/L (137-145) 11/01/18 05:30 Potassium 3.3 mmol/L (3.6-5.0) L D 11/01/18 05:30 Chloride 102.7 mmol/L (98-107) 11/01/18 05:30 Carbon Dioxide 30 mmol/L (22-30) 11/01/18 05:30 15 mmol/L 11/01/18 05:30 BUN 13 mg/dL (9-20) 11/01/18 05:30 1.3 mg/dL (0.8-1.5) 11/01/18 05:30 Estimated GFR > 60 ml/min 11/01/18 05:30 10 % 11/01/18 05:30 Glucose 86 mg/dL (75-100) 11/01/18 05:30 POC Glucose 89 (70-105) 11/01/18 08:19 Calcium 9.1 mg/dL (8.4-10.2) 11/01/18 05:30 Magnesium 1.90 mg/dL (1.7-2.3) 11/01/18 05:30 0.50 mg/dL (0.1-1.2) 11/01/18 05:30 AST 11 units/L (5-40) 11/01/18 05:30 ALT 8 units/L (7-56) 11/01/18 05:30 62 units/L (35-129) 11/01/18 05:30 < 0.010 ng/mL (0.00-0.029) 10/31/18 13:08 NT-Pro-B Natriuret Pep 6280 pg/mL (0-900) H 10/31/18 05:45 7.1 g/dL (6.3-8.2) 11/01/18 05:30 3.1 g/dL (3.9-5) L 11/01/18 05:30 0.8 % 11/01/18 05:30 Active Medications - Current Medications Current Medications: Generic Name Dose Route Start Last Admin Trade Name Freq PRN Reason Stop Dose Admin Albuterol/Ipratropium 1 ampul 10/31/18 20:00 11/01/18 08:14 Duoneb *Not For Prn Use* IH 1 ampul BIDRT JERRY Administration Apixaban 5 mg 10/31/18 22:00 11/01/18 09:57 Eliquis PO 5 mg BID JERRY Administration Protocol Carvedilol 25 mg 10/31/18 12:00 11/01/18 09:57 Coreg PO 25 mg Q12HR JERRY Administration Dextrose 50 ml 10/31/18 11:55 D50w (25gm) Syringe IV PRN PRN Hypoglycemia Furosemide 40 mg 10/31/18 18:00 11/01/18 06:08 Lasix IV 40 mg 0600,1800 JERRY Administration Insulin Glargine 10 units 10/31/18 22:00 10/31/18 22:08 Lantus SUB-Q 10 units QHS JERRY Administration Insulin Human Lispro 0 unit 10/31/18 16:30 11/01/18 08:23 Humalog SUB-Q Not Given ACHS [facility] Protocol Insulin Human Lispro 5 unit 10/31/18 16:30 11/01/18 09:35 Humalog SUB-Q Not Given AC JERRY Meclizine HCl 25 mg 10/31/18 12:16 Antivert PO Q8H PRN Vertigo Oxycodone/Acetaminophen 1 tab 10/31/18 11:49 10/31/18 21:45 Percocet 5/325 PO 1 tab Q6HR PRN Administration Pain Pantoprazole Sodium 20 mg 10/31/18 12:00 11/01/18 09:57 Protonix PO 20 mg QDAY JERRY Administration Prednisone 20 mg 11/01/18 10:00 11/01/18 09:57 Deltasone PO 20 mg QDAY JERRY Administration Pregabalin 50 mg 10/31/18 12:00 11/01/18 09:58 Lyrica PO 50 mg BID JERRY Administration Tamsulosin HCl 0.4 mg 10/31/18 22:00 10/31/18 21:45 Flomax PO 0.4 mg QHS JERRY Administration Tramadol HCl 50 mg 10/31/18 11:49 10/31/18 13:50 Ultram PO 50 mg Q6HR PRN Administration Pain
--- NOTE | 2018-11-01 13:29 | Progress Note ---
Assessment and Plan 68 y/o male with afib with rvr and worsening shortness of breath, both likely secondary to volume overload from noncompliance with diuretic therapy. 1. Agree with BID IV lasix therapy 2. Agree with restarting home dose of coreg] 3. Will speak with patient about home COPD regimen and make necessary adjustments 4. Stable for patient to transfer out of unit. Subjective Date of service: 11/01/18 Interval history: No acute events. Off drip. Stable. Objective - Constitutional Vitals: Vital Signs - 12hr 11/01/18 11/01/18 11/01/18 03:47 04:50 05:00 Temperature 98.2 F Pulse Rate 81 75 Pulse Rate [ Anterior Bilateral] Pulse Rate [ Left Radial] Respiratory 17 23 Rate Respiratory Rate [Anterior Bilateral] Blood Pressure 116/67 132/74 O2 Sat by Pulse 99 97 Oximetry 11/01/18 11/01/18 11/01/18 05:10 05:20 05:30 Temperature Pulse Rate 74 79 71 Pulse Rate [ Anterior Bilateral] Pulse Rate [ Left Radial] Respiratory 21 19 19 Rate Respiratory Rate [Anterior Bilateral] Blood Pressure 132/74 132/74 132/74 O2 Sat by Pulse 96 98 98 Oximetry 11/01/18 11/01/18 11/01/18 05:40 05:50 06:00 Temperature Pulse Rate 81 84 80 Pulse Rate [ Anterior Bilateral] Pulse Rate [ Left Radial] Respiratory 18 18 29 H Rate Respiratory Rate [Anterior Bilateral] Blood Pressure 132/74 132/74 138/75 O2 Sat by Pulse 98 100 97 Oximetry 11/01/18 11/01/18 11/01/18 06:10 06:20 06:30 Temperature Pulse Rate 82 83 80 Pulse Rate [ Anterior Bilateral] Pulse Rate [ Left Radial] Respiratory 18 27 H 22 Rate Respiratory Rate [Anterior Bilateral] Blood Pressure 138/75 138/75 138/75 O2 Sat by Pulse 95 94 93 Oximetry 11/01/18 11/01/18 11/01/18 06:40 06:50 07:00 Temperature Pulse Rate 82 86 81 Pulse Rate [ Anterior Bilateral] Pulse Rate [ Left Radial] Respiratory 19 20 29 H Rate Respiratory Rate [Anterior Bilateral] Blood Pressure 138/75 138/75 137/77 O2 Sat by Pulse 94 93 94 Oximetry 11/01/18 11/01/18 11/01/18 07:10 07:20 07:30 Temperature Pulse Rate 86 86 94 H Pulse Rate [ Anterior Bilateral] Pulse Rate [ Left Radial] Respiratory 26 H 25 H 30 H Rate Respiratory Rate [Anterior Bilateral] Blood Pressure 137/77 137/77 137/77 O2 Sat by Pulse 93 94 95 Oximetry 11/01/18 11/01/18 11/01/18 07:40 07:50 08:00 Temperature Pulse Rate 85 85 84 Pulse Rate [ Anterior Bilateral] Pulse Rate [ 96 H Left Radial] Respiratory 21 29 H 26 H Rate Respiratory Rate [Anterior Bilateral] Blood Pressure 137/77 137/77 136/84 O2 Sat by Pulse 95 94 92 Oximetry 11/01/18 11/01/18 11/01/18 08:10 08:17 08:20 Temperature Pulse Rate 81 87 Pulse Rate [ 95 H Anterior Bilateral] Pulse Rate [ Left Radial] Respiratory 19 20 Rate Respiratory 18 Rate [Anterior Bilateral] Blood Pressure 137/77 137/77 O2 Sat by Pulse 93 93 Oximetry 11/01/18 11/01/18 11/01/18 08:30 08:40 08:50 Temperature Pulse Rate 92 H 95 H 91 H Pulse Rate [ Anterior Bilateral] Pulse Rate [ Left Radial] Respiratory 14 28 H 27 H Rate Respiratory Rate [Anterior Bilateral] Blood Pressure 137/77 136/84 136/84 O2 Sat by Pulse 92 96 94 Oximetry 11/01/18 11/01/18 11/01/18 09:00 09:10 09:20 Temperature Pulse Rate 88 96 H 100 H Pulse Rate [ Anterior Bilateral] Pulse Rate [ Left Radial] Respiratory 26 H 22 17 Rate Respiratory Rate [Anterior Bilateral] Blood Pressure 157/78 157/78 157/78 O2 Sat by Pulse 93 94 95 Oximetry 11/01/18 11/01/18 11/01/18 09:30 09:40 09:50 Temperature Pulse Rate 106 H 114 H 110 H Pulse Rate [ Anterior Bilateral] Pulse Rate [ Left Radial] Respiratory 25 H 23 33 H Rate Respiratory Rate [Anterior Bilateral] Blood Pressure 157/78 157/78 157/78 O2 Sat by Pulse 96 95 96 Oximetry 11/01/18 11/01/18 11/01/18 09:57 10:00 10:10 Temperature Pulse Rate 112 H 113 H 117 H Pulse Rate [ Anterior Bilateral] Pulse Rate [ Left Radial] Respiratory 23 15 Rate Respiratory Rate [Anterior Bilateral] Blood Pressure 157/78 157/78 98/59 O2 Sat by Pulse 97 96 Oximetry 11/01/18 11/01/18 11/01/18 10:20 10:30 10:40 Temperature Pulse Rate 101 H 93 H 91 H Pulse Rate [ Anterior Bilateral] Pulse Rate [ Left Radial] Respiratory 22 24 25 H Rate Respiratory Rate [Anterior Bilateral] Blood Pressure 98/59 98/59 98/59 O2 Sat by Pulse Oximetry 11/01/18 11/01/18 11/01/18 10:50 11:00 11:10 Temperature Pulse Rate 96 H 93 H 93 H Pulse Rate [ Anterior Bilateral] Pulse Rate [ Left Radial] Respiratory 23 21 23 Rate Respiratory Rate [Anterior Bilateral] Blood Pressure 98/59 98/59 98/59 O2 Sat by Pulse Oximetry 11/01/18 11/01/18 11/01/18 11:20 11:30 11:40 Temperature Pulse Rate 83 91 H 75 Pulse Rate [ Anterior Bilateral] Pulse Rate [ Left Radial] Respiratory 20 23 23 Rate Respiratory Rate [Anterior Bilateral] Blood Pressure 98/59 98/59 98/59 O2 Sat by Pulse 95 96 96 Oximetry 11/01/18 11/01/18 11/01/18 11:50 12:00 12:10 Temperature 97.5 F L Pulse Rate 93 H 83 95 H Pulse Rate [ Anterior Bilateral] Pulse Rate [ 109 H Left Radial] Respiratory 17 26 H 20 Rate Respiratory Rate [Anterior Bilateral] Blood Pressure 88/67 103/63 103/63 O2 Sat by Pulse 96 96 92 Oximetry 11/01/18 11/01/18 11/01/18 12:20 12:30 12:40 Temperature Pulse Rate 96 H 86 87 Pulse Rate [ Anterior Bilateral] Pulse Rate [ Left Radial] Respiratory 24 22 22 Rate Respiratory Rate [Anterior Bilateral] Blood Pressure 103/63 103/63 103/63 O2 Sat by Pulse 95 96 94 Oximetry 11/01/18 11/01/18 12:50 13:00 Temperature Pulse Rate 86 98 H Pulse Rate [ Anterior Bilateral] Pulse Rate [ Left Radial] Respiratory 24 16 Rate Respiratory Rate [Anterior Bilateral] Blood Pressure 103/63 103/63 O2 Sat by Pulse 95 96 Oximetry General appearance: Present: no acute distress, well-nourished - EENT Eyes: PERRL, EOM intact - Neck Neck: supple - Respiratory Respiratory effort: normal Respiratory: bilateral: CTA - Labs CBC & Chem 7: 11/01/18 05:30 11/01/18 05:30 Labs: Abnormal lab results 10/31/18 10/31/18 11/01/18 Range/Units 13:08 17:14 05:30 Hgb 8.7 L (11.8-15.2) gm/dl Hct 27.9 L (35.5-45.6) % MCV 72 L (84-94) fl MCH 22 L (28-32) pg MCHC 31 L (32-34) % RDW 19.9 H (13.2-15.2) % PT 17.5 H (12.2-14.9) Sec. INR 1.47 H (0.87-1.13) Potassium (3.6-5.0) mmol/L POC Glucose 115 H (70-105) Albumin (3.9-5) g/dL 11/01/18 11/01/18 Range/Units 05:30 11:44 Hgb (11.8-15.2) gm/dl Hct (35.5-45.6) % MCV (84-94) fl MCH (28-32) pg MCHC (32-34) % RDW (13.2-15.2) % PT (12.2-14.9) Sec. INR (0.87-1.13) Potassium 3.3 L D (3.6-5.0) mmol/L POC Glucose 164 H (70-105) Albumin 3.1 L (3.9-5) g/dL Medications & Allergies - Medications Allergies/Adverse Reactions: Allergies No Known Allergies Allergy (Verified 05/05/18 23:54) Home Medications: Home Medications Medication Instructions Recorded Confirmed Last Taken Type Insulin Aspart [NovoLOG 100 5 units SUB-Q TIDAC 07/30/18 10/31/18 Unknown History UNITS/ML VIAL] Insulin Glargine [Lantus VIAL] 10 units SUB-Q QHS 07/30/18 10/31/18 Unknown History Ipratropium/Albuterol Sulfate 1 puff IH BID 07/30/18 10/31/18 Unknown History [Combivent Respimat] Omeprazole 20 mg PO QDAY 07/30/18 10/31/18 Unknown History Pregabalin [Lyrica] 50 mg PO BID 07/30/18 10/31/18 Unknown History Tamsulosin [Flomax] 0.4 mg PO QDAY 07/30/18 10/31/18 Unknown History Apixaban [Eliquis] 5 mg PO BID #60 tablet 08/04/18 10/31/18 Unknown Rx Carvedilol [Coreg] 25 mg PO BID tablet 08/04/18 10/31/18 Unknown Rx traMADol [Ultram 50 MG tab] 50 mg PO Q6HR PRN #20 tablet 08/04/18 10/31/18 Unknown Rx Meclizine HCl [Meclizine CHEW] 25 mg PO Q8HR PRN #30 tab 09/06/18 10/31/18 Unknown Rx Colchicine 0.6 mg PO QDAY #30 capsule 09/28/18 10/31/18 Unknown Rx Pantoprazole [Protonix TAB] 40 mg PO DAILY #30 tablet 09/28/18 10/31/18 Unknown Rx oxyCODONE /ACETAMINOPHEN [Percocet 1 tab PO Q6HR PRN #14 tablet 09/28/18 10/31/18 Unknown Rx 5/325 mg] predniSONE [Deltasone] 20 mg PO QDAY #7 tablet 09/28/18 10/31/18 Unknown Rx oxyCODONE /ACETAMINOPHEN [Percocet 1 tab PO TID #6 tablet 10/08/18 10/31/18 Unknown Rx 5/325] Active Medications: Generic Name Dose Route Start Last Admin Trade Name Freq PRN Reason Stop Dose Admin Albuterol/Ipratropium 1 ampul 10/31/18 20:00 11/01/18 08:14 Duoneb *Not For Prn Use* IH 1 ampul BIDRT JERRY Administration Apixaban 5 mg 10/31/18 22:00 11/01/18 09:57 Eliquis PO 5 mg BID JERRY Administration Protocol Dextrose 50 ml 10/31/18 11:55 D50w (25gm) Syringe IV PRN PRN Hypoglycemia Furosemide 40 mg 10/31/18 18:00 11/01/18 06:08 Lasix IV 40 mg 0600,1800 JERRY Administration Insulin Glargine 10 units 10/31/18 22:00 10/31/18 22:08 Lantus SUB-Q 10 units QHS JERRY Administration Insulin Human Lispro 0 unit 10/31/18 16:30 11/01/18 12:56 Humalog SUB-Q 1 unit ACHS JERRY Administration Protocol Insulin Human Lispro 5 unit 10/31/18 16:30 11/01/18 12:56 Humalog SUB-Q 5 unit AC JERRY Administration Lisinopril 10 mg 11/02/18 10:00 Zestril PO QDAY JERRY Meclizine HCl 25 mg 10/31/18 12:16 Antivert PO Q8H PRN Vertigo Metoprolol Tartrate 25 mg 11/01/18 14:00 Lopressor PO TID JERRY Oxycodone/Acetaminophen 1 tab 10/31/18 11:49 10/31/18 21:45 Percocet 5/325 PO 1 tab Q6HR PRN Administration Pain Pantoprazole Sodium 20 mg 10/31/18 12:00 11/01/18 09:57 Protonix PO 20 mg QDAY JERRY Administration Prednisone 20 mg 11/01/18 10:00 11/01/18 09:57 Deltasone PO 20 mg QDAY JERRY Administration Pregabalin 50 mg 10/31/18 12:00 11/01/18 09:58 Lyrica PO 50 mg BID JERRY Administration Tamsulosin HCl 0.4 mg 10/31/18 22:00 10/31/18 21:45 Flomax PO 0.4 mg QHS JERRY Administration Tramadol HCl 50 mg 10/31/18 11:49 10/31/18 13:50 Ultram PO 50 mg Q6HR PRN Administration Pain
[2018-11-01] MEDS: LOPRESSOR PO SCH ×2 (13:42→20:44)
[2018-11-01] MEDS: FLOMAX PO SCH (22:07)
[2018-11-01] MEDS: LANTUS SUB-Q SCH (22:09)
[2018-11-02 05:23] LABS: Hematocrit 29.7 % (35.5-45.6); Hemoglobin 9.3 gm/dl (11.8-15.2); Mean Corpuscular HGB Conc 31 % (32-34); Mean Corpuscular Volume 71 fl (84-94); Platelet Count 258 K/mm3 (140-440); Red Blood Count 4.19 M/mm3 (3.65-5.03); Red Cell Distribution Width 19.6 % (13.2-15.2)
[2018-11-02 05:46] LABS: Calcium 8.9 mg/dL (8.4-10.2)
[2018-11-02 05:48] LABS: Mean Corpuscular Hemoglobin 22 pg (28-32)
[2018-11-02] MEDS: LASIX IV SCH (06:23)
[2018-11-02] MEDS: HumaLOG SUB-Q SCH ×7 (08:52→22:10)
[2018-11-02] MEDS: LOPRESSOR PO SCH ×3 (08:56→20:28)
[2018-11-02] MEDS: DELTASONE PO SCH (09:20)
[2018-11-02] MEDS: LYRICA PO SCH ×2 (09:20→22:08)
[2018-11-02] MEDS: PROTONIX PO SCH (09:20)
[2018-11-02] MEDS: ELIQUIS PO SCH ×2 (09:20→22:09)
--- NOTE | 2018-11-02 09:50 | Progress Note ---
Assessment and Plan Assessment and plan: Patient is a 68 yo man with a history of IDDM with peripheral neuropathy, Afib, PE, DVT on Eliquis GIB on Xarelto, AOCD, CHF, hypertension, Gout, COPD/former smoker quit 10 years ago, GERD and BPH who presents to [facility] ED with worsening severe acute onset of SOB upon waking this morning. He admits to missing Lasix dosing because of his limited mobility and inability to get to restroom to urinate. He has degenerative spinal disease on CT scan done last month. He also admits to skipping other medications also. He denies cp, n/v/palpitations/new cough/abd pains. He was just discharged from here on 10/08/18. In the ED, he was found to be in acute CHF and AFib with RVR. He was admitted to ICU on IV Card izem drip for the afib with RVR. * Echo done 04/2018 showed EF 40-45%, mild MR, trace TR, mild pulm HTN RVSP 44mmHg. * pCXR Impression: Cardiomegaly and mild interstitial pulmonary edema -Acute on chronic systolic heart failure due to afib rvr due to noncompliance: Counseling done, Consulted Cardiology, treat with iv lasix and monitor renal function with daily bmp, repeat ECHO reviewed -AFib with RVR: treated with iv Cardizem drip, weaned off, now on coreg, on Coumadin, check PT/INR -H/o bilateral PE/leg DVT: continue Anticoagulation -IDDM with complication of peripheral neuropathy: continue lyrica, treat with insulin, ssi, accucheck, ada diet, last a1c was 6.2 on 09/22/18 -AOCD: monitor cbc closely, check coags -Hypertensive heart disease: continue medical management -Gout by h/o: continue colchine -COPD by h/o: prn nebs -BPH by h/o: flomax -GERD: ppi ordered stat pCXR, right lung base bs << left base bs History Interval history: Patient was seen and examined. Follow-up on current diagnosis of Afib with RVR. Overnight uneventful. Patient denies any chest pain, shortness breath, nausea/vomiting or severe headaches. Imaging, nursing note, chart, labs and old chart reviewed. Discussed with patient. Hospitalist Physical - Physical exam Narrative exam: Gen: chronically disable, NAD, Awake, Alert, Orientated HEENT: NCAT, EOMI, PERRL, OP Clear Neck: supple, no adenopathy, no thyromegaly, + JVD CVS/Heart: irregular irregular, normal S1S2, pulses present bilaterally Chest/Lungs: diminished bs bilaterallly, Symmetrical chest expansion, good air entry bilaterally GI/Abdomen: soft, NTND, good bowel sounds, no guarding or rebound /Bladder: no suprapubic tenderness, no CVA or paraspinal tenderness Extermity/Skin: +2 ble pitting edema, no obvious rash MSK: FROM x 4 Neuro: CN 2-12 grossly intact, no new focal deficits Psych: calm - Constitutional Vitals: Temp Pulse Resp BP Pulse Ox 98.1 F 87 16 111/66 98 11/02/18 07:54 11/02/18 09:20 11/02/18 07:54 11/02/18 09:20 11/02/18 07:54 General appearance: Present: no acute distress, well-nourished Results - Labs CBC & Chem 7: 11/02/18 04:27 11/02/18 04:27 Labs: Laboratory Last Values WBC 6.2 K/mm3 (4.5-11.0) 11/02/18 04:27 RBC 4.19 M/mm3 (3.65-5.03) 11/02/18 04:27 Hgb 9.3 gm/dl (11.8-15.2) L 11/02/18 04:27 Hct 29.7 % (35.5-45.6) L 11/02/18 04:27 MCV 71 fl (84-94) L 11/02/18 04:27 MCH 22 pg (28-32) L 11/02/18 04:27 MCHC 31 % (32-34) L 11/02/18 04:27 RDW 19.6 % (13.2-15.2) H 11/02/18 04:27 Plt Count 258 K/mm3 (140-440) 11/02/18 04:27 Lymph % (Auto) 13.2 % (13.4-35.0) L 10/31/18 05:45 Mower % (Auto) 9.4 % (0.0-7.3) H 10/31/18 05:45 Eos % (Auto) 5.0 % (0.0-4.3) H 10/31/18 05:45 Baso % (Auto) 2.4 % (0.0-1.8) H 10/31/18 05:45 Lymph # 0.9 K/mm3 (1.2-5.4) L 10/31/18 05:45 Mower # 0.6 K/mm3 (0.0-0.8) 10/31/18 05:45 Eos # 0.3 K/mm3 (0.0-0.4) 10/31/18 05:45 Baso # 0.2 K/mm3 (0.0-0.1) H 10/31/18 05:45 Seg Neutrophils % 70.0 % (40.0-70.0) 10/31/18 05:45 Seg Neutrophils # 4.6 K/mm3 (1.8-7.7) 10/31/18 05:45 PT 17.5 Sec. (12.2-14.9) H 10/31/18 13:08 INR 1.47 (0.87-1.13) H 10/31/18 13:08 APTT 33.2 Sec. (24.2-36.6) 10/31/18 13:08 Sodium 145 mmol/L (137-145) 11/02/18 04:27 Potassium 3.6 mmol/L (3.6-5.0) 11/02/18 04:27 Chloride 102.8 mmol/L (98-107) 11/02/18 04:27 Carbon Dioxide 30 mmol/L (22-30) 11/02/18 04:27 16 mmol/L 11/02/18 04:27 BUN 20 mg/dL (9-20) 11/02/18 04:27 1.6 mg/dL (0.8-1.5) H 11/02/18 04:27 Estimated GFR 52 ml/min 11/02/18 04:27 13 % 11/02/18 04:27 Glucose 130 mg/dL (75-100) H 11/02/18 04:27 POC Glucose 170 (70-105) H 11/02/18 08:01 Calcium 8.9 mg/dL (8.4-10.2) 11/02/18 04:27 Magnesium 1.90 mg/dL (1.7-2.3) 11/02/18 04:27 0.50 mg/dL (0.1-1.2) 11/01/18 05:30 AST 11 units/L (5-40) 11/01/18 05:30 ALT 8 units/L (7-56) 11/01/18 05:30 62 units/L (35-129) 11/01/18 05:30 < 0.010 ng/mL (0.00-0.029) 10/31/18 13:08 NT-Pro-B Natriuret Pep 6280 pg/mL (0-900) H 10/31/18 05:45 7.1 g/dL (6.3-8.2) 11/01/18 05:30 3.1 g/dL (3.9-5) L 11/01/18 05:30 0.8 % 11/01/18 05:30 Active Medications - Current Medications Current Medications: Generic Name Dose Route Start Last Admin Trade Name Freq PRN Reason Stop Dose Admin Albuterol/Ipratropium 1 ampul 10/31/18 20:00 11/01/18 19:16 Duoneb *Not For Prn Use* IH 1 ampul BIDRT JERRY Administration Apixaban 5 mg 10/31/18 22:00 11/02/18 09:20 Eliquis PO 5 mg BID JERRY Administration Protocol Dextrose 50 ml 10/31/18 11:55 D50w (25gm) Syringe IV PRN PRN Hypoglycemia Furosemide 40 mg 10/31/18 18:00 11/02/18 06:23 Lasix IV 40 mg 0600,1800 JERRY Administration Insulin Glargine 10 units 10/31/18 22:00 11/01/18 22:09 Lantus SUB-Q 10 units QHS [facility] Administration Insulin Human Lispro 0 unit 10/31/18 16:30 11/02/18 08:52 Humalog SUB-Q 1 unit ACHS [facility] Administration Protocol Insulin Human Lispro 5 unit 10/31/18 16:30 11/02/18 08:52 Humalog SUB-Q 5 unit AC JERRY Administration Lisinopril 5 mg 11/02/18 10:00 11/02/18 09:20 Zestril PO Not Given QDAY JERRY Meclizine HCl 25 mg 10/31/18 12:16 Antivert PO Q8H PRN Vertigo Metoprolol Tartrate 25 mg 11/01/18 14:00 11/02/18 08:56 Lopressor PO Not Given TID JERRY Oxycodone/Acetaminophen 1 tab 10/31/18 11:49 10/31/18 21:45 Percocet 5/325 PO 1 tab Q6HR PRN Administration Pain Pantoprazole Sodium 20 mg 10/31/18 12:00 11/02/18 09:20 Protonix PO 20 mg QDAY JERRY Administration Prednisone 20 mg 11/01/18 10:00 11/02/18 09:20 Deltasone PO 20 mg QDAY JERRY Administration Pregabalin 50 mg 10/31/18 12:00 11/02/18 09:20 Lyrica PO 50 mg BID JERRY Administration Tamsulosin HCl 0.4 mg 10/31/18 22:00 11/01/18 22:07 Flomax PO 0.4 mg QHS JERRY Administration Tramadol HCl 50 mg 10/31/18 11:49 10/31/18 13:50 Ultram PO 50 mg Q6HR PRN Administration Pain
[2018-11-02] MEDS ORDERED: ZESTRIL PO SCH ×2 (10:00)
--- NOTE | 2018-11-02 10:50 | XRay Report ---
CHEST 1 VIEW INDICATION / CLINICAL INFORMATION: pleural effusion/especially right side. COMPARISON: 10/31/2018 FINDINGS: SUPPORT DEVICES: None. HEART / MEDIASTINUM: Slightly enlarged but has diminished in the interval. LUNGS / PLEURA: The venous congestion and interstitial edema has nearly completely resolved with only minimal interstitial density remaining. No effusions are seen. No pneumothorax. ADDITIONAL FINDINGS: No significant additional findings. IMPRESSION: 1. Improving chest Signer Name: Sudhakar Michelle MD Signed: 11/02/2018 10:45 AM Workstation Name: [id number]
[2018-11-02] MEDS: DUONEB *Not for PRN Use IH SCH ×2 (10:54→19:27)
--- NOTE | 2018-11-02 11:28 | Progress Note ---
Assessment and Plan 68 y/o male with afib with rvr and worsening shortness of breath, both likely secondary to volume overload from noncompliance with diuretic therapy. 1. Agree with BID IV lasix therapy 2. Agree with restarting home dose of coreg] 3. Will speak with patient about home COPD regimen and make necessary adjustments, [facility] resume [facility] regimen at discharge. 4. Wean FiO2 for sats >88% Subjective Date of service: 11/02/18 Interval history: No acute events. Successful transfer to floor. Does not wear oxygen at home and is managed as an outpatient by the [place] Objective Vital Signs - 12hr 11/01/18 11/01/18 11/02/18 23:50 23:51 00:05 Temperature 98.3 F Pulse Rate 83 83 Pulse Rate [ Anterior Bilateral] Pulse Rate [ From Monitor] Respiratory 20 Rate Respiratory Rate [Anterior Bilateral] Blood Pressure 113/66 113/66 O2 Sat by Pulse 96 100 Oximetry 11/02/18 11/02/18 11/02/18 03:32 07:54 08:56 Temperature 98.3 F 98.1 F Pulse Rate 93 H 87 87 Pulse Rate [ Anterior Bilateral] Pulse Rate [ From Monitor] Respiratory 18 16 Rate Respiratory Rate [Anterior Bilateral] Blood Pressure 126/71 111/66 111/66 O2 Sat by Pulse 98 98 Oximetry 11/02/18 11/02/18 11/02/18 09:20 10:00 10:55 Temperature Pulse Rate 87 Pulse Rate [ 55 L Anterior Bilateral] Pulse Rate [ 87 From Monitor] Respiratory 16 Rate Respiratory 20 Rate [Anterior Bilateral] Blood Pressure 111/66 O2 Sat by Pulse 98 9 L Oximetry Constitutional: no acute distress, alert Eyes: non-icteric ENT: oropharynx moist Neck: supple Effort: normal Ascultation: Bilateral: clear Percussion: Bilateral: not dull Tactile fremitus: Bilateral: normal Gastrointestinal: normoactive bowel sounds, soft Integumentary: normal Extremities: no cyanosis, no edema CBC and BMP: 11/02/18 04:27 11/02/18 04:27 ABG, PT/INR, D-dimer: PT/INR, D-dimer PT 17.5 Sec. (12.2-14.9) H 10/31/18 13:08 INR 1.47 (0.87-1.13) H 10/31/18 13:08 Abnormal lab findings: Abnormal Labs 10/31/18 10/31/18 10/31/18 05:45 05:45 05:45 Hgb 9.3 L Hct 29.9 L MCV 71 L MCH 22 L MCHC 31 L RDW 20.0 H Lymph % (Auto) 13.2 L [place] % (Auto) 9.4 H Eos % (Auto) 5.0 H Baso % (Auto) 2.4 H Lymph # 0.9 L Baso # 0.2 H PT INR Potassium Creatinine Glucose 136 H POC Glucose NT-Pro-B Natriuret Pep 6280 H Albumin 10/31/18 10/31/18 10/31/18 13:04 13:08 17:14 Hgb Hct MCV MCH MCHC RDW Lymph % (Auto) [place] % (Auto) Eos % (Auto) Baso % (Auto) Lymph # Baso # PT 17.5 H INR 1.47 H Potassium Creatinine Glucose POC Glucose 139 H 115 H NT-Pro-B Natriuret Pep Albumin 11/01/18 11/01/18 11/01/18 05:30 05:30 11:44 Hgb 8.7 L Hct 27.9 L MCV 72 L MCH 22 L MCHC 31 L RDW 19.9 H Lymph % (Auto) [place] % (Auto) Eos % (Auto) Baso % (Auto) Lymph # Baso # PT INR Potassium 3.3 L D Creatinine Glucose POC Glucose 164 H NT-Pro-B Natriuret Pep Albumin 3.1 L 11/01/18 11/01/18 11/02/18 18:55 21:30 04:27 Hgb 9.3 L Hct 29.7 L MCV 71 L MCH 22 L MCHC 31 L RDW 19.6 H Lymph % (Auto) [place] % (Auto) Eos % (Auto) Baso % (Auto) Lymph # Baso # PT INR Potassium Creatinine Glucose POC Glucose 209 H 244 H NT-Pro-B Natriuret Pep Albumin 11/02/18 11/02/18 04:27 08:01 Hgb Hct MCV MCH MCHC RDW Lymph % (Auto) [place] % (Auto) Eos % (Auto) Baso % (Auto) Lymph # Baso # PT INR Potassium Creatinine 1.6 H Glucose 130 H POC Glucose 170 H NT-Pro-B Natriuret Pep Albumin
--- NOTE | 2018-11-02 11:51 | Progress Note ---
Assessment and Plan Will reduce lasix to once daily. BMP in am. Considering significant reduction in LV systolic function over a few months, Lexiscan stress MPI on Sunday. - Patient Problems (1) Permanent atrial fibrillation with RVR Current Visit: Yes Status: Acute (2) Acute HFrEF (heart failure with reduced ejection fraction) Current Visit: Yes Status: Acute (3) NETO (acute kidney injury) Current Visit: Yes Status: Acute (4) Cardiomyopathy Current Visit: Yes Status: Chronic (5) COPD (chronic obstructive pulmonary disease) Current Visit: Yes Status: Chronic Qualifiers: COPD type: unspecified COPD Qualified Code(s): J44.9 - Chronic obstructive pulmonary disease, unspecified (6) Hypertension Current Visit: Yes Status: Chronic Qualifiers: Hypertension type: essential hypertension Qualified Code(s): I10 - Esse ntial (primary) hypertension (7) Diabetes Current Visit: Yes Status: Chronic (8) History of DVT (deep vein thrombosis) Current Visit: Yes Status: Chronic (9) History of pulmonary embolism Current Visit: Yes Status: Chronic Subjective Date of service: 11/02/18 Principal diagnosis: Permanent AF with RVR, Acute HFrEF, CMP, HTN, COPD, DM Interval history: No complaint. Less SOB. Objective Vital Signs Last Vital Signs Temp 98.1 F 11/02/18 07:54 Pulse 55 L 11/02/18 10:55 Resp 20 11/02/18 10:55 BP 111/66 11/02/18 09:20 Pulse Ox 9 L 11/02/18 10:55 - Physical Examination General: No Apparent Distress HEENT: Positive: EOMI, Normocephaly, Mucus Membranes Moist Neck: Positive: neck supple, trachea midline Cardiac: Positive: irregularly irregular, S1/S2 Lungs: Positive: Rales (few basal rales) Neuro: Positive: Grossly Intact Abdomen: Positive: Soft, Active Bowel Sounds. Negative: Tender Skin: Negative: Rash Musculoskeletal: Normal Range of Motion Extremities: Absent: edema - Labs and Meds CBC 11/02/18 Range/Units 04:27 WBC 6.2 (4.5-11.0) K/mm3 RBC 4.19 (3.65-5.03) M/mm3 Hgb 9.3 L (11.8-15.2) gm/dl Hct 29.7 L (35.5-45.6) % Plt Count 258 (140-440) K/mm3 Comprehensive Metabolic Panel 11/02/18 Range/Units 04:27 Sodium 145 (137-145) mmol/L Potassium 3.6 (3.6-5.0) mmol/L Chloride 102.8 (98-107) mmol/L Carbon Dioxide 30 (22-30) mmol/L BUN 20 (9-20) mg/dL Creatinine 1.6 H (0.8-1.5) mg/dL Glucose 130 H (75-100) mg/dL Calcium 8.9 (8.4-10.2) mg/dL - Imaging and Cardiology EKG: image reviewed - Telemetry EKG Rhythm: Atrial Fibrillation
[2018-11-02] MEDS: FLOMAX PO SCH (22:09)
[2018-11-02] MEDS: LANTUS SUB-Q SCH (22:09)
[2018-11-03] MEDS: DUONEB *Not for PRN Use IH SCH ×2 (08:00→19:44)
[2018-11-03] MEDS: LYRICA PO SCH ×2 (09:46→21:14)
[2018-11-03] MEDS: DELTASONE PO SCH (09:46)
[2018-11-03] MEDS: ELIQUIS PO SCH ×2 (09:46→21:14)
[2018-11-03] MEDS: ZESTRIL PO SCH ×2 (09:47→12:21)
[2018-11-03] MEDS: PROTONIX PO SCH (09:47)
[2018-11-03] MEDS: LOPRESSOR PO SCH ×3 (09:47→21:14)
[2018-11-03] MEDS: HumaLOG SUB-Q SCH ×7 (09:51→21:16)
[2018-11-03] MEDS ORDERED: LASIX IV SCH (10:00)
[2018-11-03 10:31] LABS: BUN/Creatinine Ratio 16; Blood Urea Nitrogen 23 mg/dL (9-20); Calcium 8.9 mg/dL (8.4-10.2); Hemolysis Index 4
--- NOTE | 2018-11-03 11:46 | Progress Note ---
Assessment and Plan Clinically improved. Change Lasix to PO. Due to significant reduction in EF over past few months, will do Lexiscan stress MPI in am. If no significant ischemia, possible DC tomorrow. - Patient Problems (1) Permanent atrial fibrillation with RVR Current Visit: Yes Status: Acute (2) Acute HFrEF (heart failure with reduced ejection fraction) Current Visit: Yes Status: Acute (3) NETO (acute kidney injury) Current Visit: Yes Status: Acute (4) Cardiomyopathy Current Visit: Yes Status: Chronic (5) COPD (chronic obstructive pulmonary disease) Current Visit: Yes Status: Chronic Qualifiers: COPD type: unspecified COPD Qualified Code(s): J44.9 - Chronic obstructive pulmonary disease, unspecified (6) Hypertension Current Visit: Yes Status: Chronic Qualifiers: Hypertension type: essential hypertension Qualified Code(s): I10 - Essential (primary) hypertension (7) Diabetes Current Visit: Yes Status: Chronic (8) History of DVT (deep vein thrombosis) Current Visit: Yes Status: Chronic (9) History of pulmonary embolism Current Visit: Yes Status: Chronic Subjective Date of service: 11/03/18 Principal diagnosis: Permanent AF with RVR, Acute HFrEF, CMP, HTN, COPD, DM Interval history: No complaint. Feels better. Objective Vital Signs Last Vital Signs Temp 98.6 F 11/03/18 07:38 Pulse 103 H 11/03/18 09:47 Resp 18 11/03/18 08:10 BP 123/65 11/03/18 09:47 Pulse Ox 96 11/03/18 09:47 - Physical Examination General: No Apparent Distress HEENT: Positive: EOMI, Normocephaly, Mucus Membranes Moist Neck: Positive: neck supple, trachea midline Cardiac: Positive: irregularly irregular, S1/S2 Lungs: Positive: Normal Breath Sounds Neuro: Positive: Grossly Intact Abdomen: Positive: Soft, Active Bowel Sounds. Negative: Tender Skin: Negative: Rash Musculoskeletal: Normal Range of Motion Extremities: Absent: edema - Labs and Meds Comprehensive Metabolic Panel 11/03/18 Range/Units 09:39 Sodium 144 (137-145) mmol/L Potassium 3.2 L (3.6-5.0) mmol/L Chloride 102.5 (98-107) mmol/L Carbon Dioxide 30 (22-30) mmol/L BUN 23 H (9-20) mg/dL Creatinine 1.4 (0.8-1.5) mg/dL Glucose 141 H (75-100) mg/dL Calcium 8.9 (8.4-10.2) mg/dL - Imaging and Cardiology EKG: image reviewed Echo: report reviewed ( 04/2018 showed EF 40-45%, mild MR, trace TR, mild pulm HTN RVSP 44mmHg.) - Telemetry EKG Rhythm: Atrial Fibrillation
[2018-11-03] MEDS: K-DUR PO SCH ×2 (12:20→14:55)
--- NOTE | 2018-11-03 13:05 | Progress Note ---
Assessment and Plan 68 y/o male with afib with rvr and worsening shortness of breath, both likely secondary to volume overload from noncompliance with diuretic therapy. 1. Agree with BID IV lasix therapy 2. Agree with restarting home dose of coreg] 3. Will speak with patient about home COPD regimen and make necessary adjustments, [facility], resume home regimen at discharge. 4. [facility] 5. Will sign off. Call if questions. Subjective Date of service: 11/03/18 Principal diagnosis: Permanent AF with RVR, Acute HFrEF, CMP, HTN, COPD, DM Interval history: No acute events. Pulm status is stable. Weaned down to room air. Objective Vital Signs - 12hr 11/03/18 11/03/18 11/03/18 03:52 07:38 08:10 Temperature 98.0 F 98.6 F Pulse Rate 95 H 103 H Pulse Rate [ 96 H Anterior Bilateral] Respiratory 18 16 Rate Respiratory 18 Rate [Anterior Bilateral] Blood Pressure 113/71 123/65 O2 Sat by Pulse 95 97 Oximetry 11/03/18 11/03/18 09:47 12:21 Temperature Pulse Rate 103 H 88 Pulse Rate [ Anterior Bilateral] Respiratory Rate Respiratory Rate [Anterior Bilateral] Blood Pressure 123/65 123/73 O2 Sat by Pulse 96 Oximetry Constitutional: no acute distress, alert Eyes: non-icteric ENT: oropharynx moist Neck: supple Effort: normal Ascultation: Bilateral: clear Percussion: Bilateral: not dull Tactile fremitus: Bilateral: normal Gastrointestinal: normoactive bowel sounds, soft Integumentary: normal Extremities: no cyanosis, no edema CBC and BMP: 11/02/18 04:27 11/03/18 09:39 ABG, PT/INR, D-dimer: PT/INR, D-dimer PT 17.5 Sec. (12.2-14.9) H 10/31/18 13:08 INR 1.47 (0.87-1.13) H 10/31/18 13:08 Abnormal lab findings: Abnormal Labs 10/31/18 10/31/18 10/31/18 05:45 05:45 05:45 Hgb 9.3 L Hct 29.9 L MCV 71 L MCH 22 L MCHC 31 L RDW 20.0 H Lymph % (Auto) 13.2 L [place] % (Auto) 9.4 H Eos % (Auto) 5.0 H Baso % (Auto) 2.4 H Lymph # 0.9 L Baso # 0.2 H PT INR Potassium BUN Creatinine Glucose 136 H POC Glucose NT-Pro-B Natriuret Pep 6280 H Albumin 10/31/18 10/31/18 10/31/18 13:04 13:08 17:14 Hgb Hct MCV MCH MCHC RDW Lymph % (Auto) [place] % (Auto) Eos % (Auto) Baso % (Auto) Lymph # Baso # PT 17.5 H INR 1.47 H Potassium BUN Creatinine Glucose POC Glucose 139 H 115 H NT-Pro-B Natriuret Pep Albumin 11/01/18 11/01/18 11/01/18 05:30 05:30 11:44 Hgb 8.7 L Hct 27.9 L MCV 72 L MCH 22 L MCHC 31 L RDW 19.9 H Lymph % (Auto) [place] % (Auto) Eos % (Auto) Baso % (Auto) Lymph # Baso # PT INR Potassium 3.3 L D BUN Creatinine Glucose POC Glucose 164 H NT-Pro-B Natriuret Pep Albumin 3.1 L 11/01/18 11/01/18 11/02/18 18:55 21:30 04:27 Hgb 9.3 L Hct 29.7 L MCV 71 L MCH 22 L MCHC 31 L RDW 19.6 H Lymph % (Auto) [place] % (Auto) Eos % (Auto) Baso % (Auto) Lymph # Baso # PT INR Potassium BUN Creatinine Glucose POC Glucose 209 H 244 H NT-Pro-B Natriuret Pep Albumin 11/02/18 11/02/18 11/02/18 04:27 08:01 16:57 Hgb Hct MCV MCH MCHC RDW Lymph % (Auto) [place] % (Auto) Eos % (Auto) Baso % (Auto) Lymph # Baso # PT INR Potassium BUN Creatinine 1.6 H Glucose 130 H POC Glucose 170 H 171 H NT-Pro-B Natriuret Pep Albumin 11/02/18 11/03/18 11/03/18 20:56 07:45 09:39 Hgb Hct MCV MCH MCHC RDW Lymph % (Auto) [place] % (Auto) Eos % (Auto) Baso % (Auto) Lymph # Baso # PT INR Potassium 3.2 L BUN 23 H Creatinine Glucose 141 H POC Glucose 161 H 119 H NT-Pro-B Natriuret Pep Albumin
--- NOTE | 2018-11-03 13:22 | Progress Note ---
Assessment and Plan Assessment and plan: Patient is a 68 yo man with a history of IDDM with peripheral neuropathy, Afib, PE, DVT on Eliquis GIB on Xarelto, AOCD, CHF, hypertension, Gout, COPD/former smoker quit 10 years ago, GERD and BPH who presents to [facility] ED with worsening severe acute onset of SOB upon waking this morning. He admits to missing Lasix dosing because of his limited mobility and inability to get to restroom to urinate. He has degenerative spinal disease on CT scan done last month. He also admits to skipping other medications also. He denies cp, n/v/palpitations/new cough/abd pains. He was just discharged from here on 10/08/18. In the ED, he was found to be in acute CHF and AFib with RVR. He was admitted to ICU on IV Card izem drip for the afib with RVR. * Echo done 04/2018 showed EF 40-45%, mild MR, trace TR, mild pulm HTN RVSP 44mmHg. * pCXR Impression: Cardiomegaly and mild interstitial pulmonary edema -Acute on chronic systolic heart failure due to afib rvr due to noncompliance: Counseling done, Consulted Cardiology, treat with iv lasix and monitor renal function with daily bmp, repeat ECHO reviewed -AFib with RVR: treated with iv Cardizem drip, weaned off, now on coreg, on Coumadin, check PT/INR -H/o bilateral PE/leg DVT: continue Anticoagulation -IDDM with complication of peripheral neuropathy: continue lyrica, treat with insulin, ssi, accucheck, ada diet, last a1c was 6.2 on 09/22/18 -AOCD: monitor cbc closely, check coags -Hypertensive heart disease: continue medical management -Gout by h/o: continue colchine -COPD by h/o: prn nebs -BPH by h/o: flomax -GERD: ppi stress test in AM History Interval history: Patient was seen and examined. Follow-up on current diagnosis of Afib with RVR. Overnight uneventful. Patient denies any chest pain, shortness breath, nausea/vomiting or severe headaches. Imaging, nursing note, chart, labs and old chart reviewed. Discussed with patient. Hospitalist Physical - Physical exam Narrative exam: Gen: chronically disable, NAD, Awake, Alert, Orientated HEENT: NCAT, EOMI, PERRL, OP Clear Neck: supple, no adenopathy, no thyromegaly, + JVD CVS/Heart: irregular irregular, normal S1S2, pulses present bilaterally Chest/Lungs: diminished bs bilaterallly, Symmetrical chest expansion, good air entry bilaterally GI/Abdomen: soft, NTND, good bowel sounds, no guarding or rebound /Bladder: no suprapubic tenderness, no CVA or paraspinal tenderness Extermity/Skin: +2 ble pitting edema, no obvious rash MSK: FROM x 4 Neuro: CN 2-12 grossly intact, no new focal deficits Psych: calm - Constitutional Vitals: Temp Pulse Resp BP Pulse Ox 98.6 F 88 18 123/73 96 11/03/18 07:38 11/03/18 12:21 11/03/18 08:10 11/03/18 12:21 11/03/18 09:47 General appearance: Present: no acute distress, well-nourished Results - Labs CBC & Chem 7: 11/02/18 04:27 11/03/18 09:39 Labs: Laboratory Last Values WBC 6.2 K/mm3 (4.5-11.0) 11/02/18 04:27 RBC 4.19 M/mm3 (3.65-5.03) 11/02/18 04:27 Hgb 9.3 gm/dl (11.8-15.2) L 11/02/18 04:27 Hct 29.7 % (35.5-45.6) L 11/02/18 04:27 MCV 71 fl (84-94) L 11/02/18 04:27 MCH 22 pg (28-32) L 11/02/18 04:27 MCHC 31 % (32-34) L 11/02/18 04:27 RDW 19.6 % (13.2-15.2) H 11/02/18 04:27 Plt Count 258 K/mm3 (140-440) 11/02/18 04:27 Lymph % (Auto) 13.2 % (13.4-35.0) L 10/31/18 05:45 [place] % (Auto) 9.4 % (0.0-7.3) H 10/31/18 05:45 Eos % (Auto) 5.0 % (0.0-4.3) H 10/31/18 05:45 Baso % (Auto) 2.4 % (0.0-1.8) H 10/31/18 05:45 Lymph # 0.9 K/mm3 (1.2-5.4) L 10/31/18 05:45 [place] # 0.6 K/mm3 (0.0-0.8) 10/31/18 05:45 Eos # 0.3 K/mm3 (0.0-0.4) 10/31/18 05:45 Baso # 0.2 K/mm3 (0.0-0.1) H 10/31/18 05:45 Seg Neutrophils % 70.0 % (40.0-70.0) 10/31/18 05:45 Seg Neutrophils # 4.6 K/mm3 (1.8-7.7) 10/31/18 05:45 PT 17.5 Sec. (12.2-14.9) H 10/31/18 13:08 INR 1.47 (0.87-1.13) H 10/31/18 13:08 APTT 33.2 Sec. (24.2-36.6) 10/31/18 13:08 Sodium 144 mmol/L (137-145) 11/03/18 09:39 Potassium 3.2 mmol/L (3.6-5.0) L 11/03/18 09:39 Chloride 102.5 mmol/L (98-107) 11/03/18 09:39 Carbon Dioxide 30 mmol/L (22-30) 11/03/18 09:39 15 mmol/L 11/03/18 09:39 BUN 23 mg/dL (9-20) H 11/03/18 09:39 1.4 mg/dL (0.8-1.5) 11/03/18 09:39 Estimated GFR > 60 ml/min 11/03/18 09:39 16 % 11/03/18 09:39 Glucose 141 mg/dL (75-100) H 11/03/18 09:39 POC Glucose 92 (70-105) 11/03/18 12:01 Calcium 8.9 mg/dL (8.4-10.2) 11/03/18 09:39 Magnesium 1.90 mg/dL (1.7-2.3) 11/02/18 04:27 0.50 mg/dL (0.1-1.2) 11/01/18 05:30 AST 11 units/L (5-40) 11/01/18 05:30 ALT 8 units/L (7-56) 11/01/18 05:30 62 units/L (35-129) 11/01/18 05:30 < 0.010 ng/mL (0.00-0.029) 10/31/18 13:08 NT-Pro-B Natriuret Pep 6280 pg/mL (0-900) H 10/31/18 05:45 7.1 g/dL (6.3-8.2) 11/01/18 05:30 3.1 g/dL (3.9-5) L 11/01/18 05:30 0.8 % 11/01/18 05:30 Active Medications - Current Medications Current Medications: Generic Name Dose Route Start Last Admin Trade Name Freq PRN Reason Stop Dose Admin Albuterol/Ipratropium 1 ampul 10/31/18 20:00 11/03/18 08:00 Duoneb *Not For Prn Use* IH 1 ampul BIDRT JERRY Administration Apixaban 5 mg 10/31/18 22:00 11/03/18 09:46 Eliquis PO 5 mg BID JERRY Administration Protocol Dextrose 50 ml 10/31/18 11:55 D50w (25gm) Syringe IV PRN PRN Hypoglycemia Furosemide 40 mg 11/04/18 10:00 Lasix PO QDAY JERRY Insulin Glargine 10 units 10/31/18 22:00 11/02/18 22:09 Lantus SUB-Q 10 units QHS JERRY Administration Insulin Human Lispro 0 unit 10/31/18 16:30 11/03/18 12:23 Humalog SUB-Q Not Given ACHS JERRY Protocol Insulin Human Lispro 5 unit 10/31/18 16:30 11/03/18 12:26 Humalog SUB-Q 5 unit AC JERRY Administration Lisinopril 2.5 mg 11/03/18 09:00 11/03/18 12:21 Zestril PO 2.5 mg QDAY JERRY Administration Meclizine HCl 25 mg 10/31/18 12:16 Antivert PO Q8H PRN Vertigo Metoprolol Tartrate 25 mg 11/01/18 14:00 11/03/18 09:47 Lopressor PO 25 mg TID JERRY Administration Oxycodone/Acetaminophen 1 tab 10/31/18 11:49 10/31/18 21:45 Percocet 5/325 PO 1 tab Q6HR PRN Administration Pain Pantoprazole Sodium 20 mg 10/31/18 12:00 11/03/18 09:47 Protonix PO 20 mg QDAY JERRY Administration Potassium Chloride 40 meq 11/03/18 12:00 11/03/18 12:20 K-Dur PO 11/03/18 14:01 40 meq Q2H JERRY Administration Potassium Chloride 20 meq 11/04/18 10:00 K-Dur PO QDAY JERRY Prednisone 20 mg 11/01/18 10:00 11/03/18 09:46 Deltasone PO 20 mg QDAY JERRY Administration Pregabalin 50 mg 10/31/18 12:00 11/03/18 09:46 Lyrica PO 50 mg BID JERRY Administration Tamsulosin HCl 0.4 mg 10/31/18 22:00 11/02/18 22:09 Flomax PO 0.4 mg QHS JERRY Administration Tramadol HCl 50 mg 10/31/18 11:49 10/31/18 13:50 Ultram PO 50 mg Q6HR PRN Administration Pain
[2018-11-03] MEDS: LANTUS SUB-Q SCH (21:15)
[2018-11-03] MEDS: FLOMAX PO SCH (21:15)
[2018-11-04 05:03] LABS: Hemoglobin 9.2 gm/dl (11.8-15.2); Mean Corpuscular HGB Conc 32 % (32-34); Mean Corpuscular Volume 71 fl (84-94); Platelet Count 300 K/mm3 (140-440); Red Blood Count 4.11 M/mm3 (3.65-5.03); Red Cell Distribution Width 19.4 % (13.2-15.2)
[2018-11-04 05:08] LABS: Mean Corpuscular Hemoglobin 22 pg (28-32)
[2018-11-04 05:19] LABS: Calcium 8.9 mg/dL (8.4-10.2)
[2018-11-04] MEDS ORDERED: LEXISCAN IV ONE ×2 (07:09→11:37)
[2018-11-04] MEDS: DUONEB *Not for PRN Use IH SCH (08:30)
[2018-11-04] MEDS: HumaLOG SUB-Q SCH ×6 (09:08→16:57)
[2018-11-04] MEDS ORDERED: LASIX PO SCH (10:00)
[2018-11-04] MEDS ORDERED: K-DUR PO SCH (10:00)
[2018-11-04] MEDS: ELIQUIS PO SCH (12:48)
[2018-11-04] MEDS: DELTASONE PO SCH (12:48)
[2018-11-04] MEDS: LYRICA PO SCH (12:49)
[2018-11-04] MEDS: PROTONIX PO SCH (12:49)
[2018-11-04] MEDS: ZESTRIL PO SCH (12:50)
[2018-11-04] MEDS: LOPRESSOR PO SCH ×2 (13:02→13:03)
--- NOTE | 2018-11-04 13:54 | Progress Note ---
Assessment and Plan S/p lexiscan MPI stress test this AM which was negative for ischemia, EF 29%. Currently stable cardiac status. Pt may discharge home from cardiology standpoint. Recommend pt follow up with [facility]ology within 1-2 weeks of hospital discharge. The patient has been seen in conjunction with Dr. Nieto who agrees with the assessment and plan of care. - Patient Problems (1) Atrial fibrillation with RVR Current Visit: Yes Status: Acute (2) Acute HFrEF (heart failure with reduced ejection fraction) Current Visit: Yes Status: Acute (3) Cardiomyopathy Current Visit: Yes Status: Chronic (4) Hypertension Current Visit: Yes Status: Chronic Qualifiers: Hypertension type: essential hypertension Qualified Code(s): I10 - Essential (primary) hypertension (5) Diabetes Current Visit: Yes Status: Chronic (6) Hyperlipidemia Current Visit: Yes Status: Chronic (7) COPD (chronic obstructive pulmonary disease) Current Visit: Yes Status: Chronic Qualifiers: COPD type: unspecified COPD Qualified Code(s): J44.9 - Chronic obstructive pulmonary disease, unspecified (8) History of DVT (deep vein thrombosis) Current Visit: Yes Status: Chronic (9) History of pulmonary embolism Current Visit: Yes Status: Chronic (10) Anemia Current Visit: Yes Status: Acute Qualifiers: Anemia type: unspecified type Qualified Code(s): D64.9 - Anemia, unspecified (11) Hypokalemia Current Visit: Yes Status: Acute Subjective Date of service: 11/04/18 Principal diagnosis: Permanent AF with RVR, Acute HFrEF, CMP, HTN, COPD, DM Interval history: pt for stress test. in AFib CVR on tele. Objective Last Vital Signs Temp 97.9 F 11/04/18 07:31 Pulse 104 H 11/04/18 13:02 Resp 20 11/04/18 08:30 BP 145/82 11/04/18 13:02 Pulse Ox 97 11/04/18 07:31 - Physical Examination General: No Apparent Distress HEENT: Positive: EOMI, Normocephaly, Mucus Membranes Moist Neck: Positive: neck supple, trachea midline Cardiac: Positive: irregularly irregular, S1/S2 Lungs: Positive: Decreased Breath Sounds Neuro: Positive: Grossly Intact Abdomen: Positive: Soft, Active Bowel Sounds. Negative: Tender Skin: Negative: Rash Musculoskeletal: Normal Range of Motion Extremities: Absent: edema - Labs and Meds CBC 07/22/19 Range/Units 03:23 WBC 5.7 (4.5-11.0) K/mm3 RBC 4.11 (3.65-5.03) M/mm3 Hgb 9.2 L (11.8-15.2) gm/dl Hct 29.0 L (35.5-45.6) % Plt Count 300 (140-440) K/mm3 Comprehensive Metabolic Panel 11/04/18 Range/Units 03:23 Sodium 146 H (137-145) mmol/L Potassium 3.9 D (3.6-5.0) mmol/L Chloride 104.9 (98-107) mmol/L Carbon Dioxide 30 (22-30) mmol/L BUN 22 H (9-20) mg/dL Creatinine 1.5 (0.8-1.5) mg/dL Glucose 101 H (75-100) mg/dL Calcium 8.9 (8.4-10.2) mg/dL - Imaging and Cardiology EKG: image reviewed Echo: report reviewed ( 09/2018: EF 25-30%, impaired relaxation, mild to mod MR, trace TR, mild NV. Echo done 04/2018 showed EF 40-45%, mild MR, trace TR, mild pulm HTN RVSP 44mmHg. 04/2018 showed EF 40-45%, mild MR, trace TR, mild pulm HTN RVSP 44mmHg.) - Telemetry EKG Rhythm: Atrial Fibrillation
--- NOTE | 2018-11-04 15:27 | Discharge Summary ---
Providers - Providers Date of Admission: 10/31/18 08:53 Date of discharge: 11/04/18 Attending physician: GUNNAR COPELAND 10/31/18 09:59 Consult to Physician [CONS] Routine Comment: DR NAIMA COLIN W/DR BUITRAGO @[id number] Consulting Provider: ARIC BUITRAGO Physician Instructions: Reason For Exam: SOB admitted to ICU 10/31/18 11:54 Consult to Physician [CONS] Routine Comment: Consulting Provider: JUVENAL MCCANN Physician Instructions: Reason For Exam: CHF, afib with rvr Primary care physician: CESAR ALVAREZ Hospitalization Condition: Stable Hospital course: Patient is a 68 yo man with a history of IDDM with peripheral neuropathy, Afib, PE, DVT on Eliquis GIB on Xarelto, AOCD, CHF, hypertension, Gout, COPD/former smoker quit 10 years ago, GERD and BPH who presents to [facility] ED with worsening severe acute onset of SOB upon waking this morning. He admits to missing Lasix dosing because of his limited mobility and inability to get to restroom to urinate. He has degenerative spinal disease on CT scan done last month. He also admits to skipping other medications also. He denies cp, n/v/palpitations/new cough/abd pains. He was just discharged from here on 10/08/18. In the ED, he was found to be in acute CHF and AFib with RVR. He was admitted to ICU on IV Cardizem drip for the afib with RVR. * 10/31/18 2D ECHO Conclusions: Global left ventricular systolic function is moderately to severely decreased, the estimated ejection fraction is 25-30%, abnormal left ventricular diastolic filling observed consistent with impaired relaxation, mild AR, mild to moderate MR, trace TR, mild SD * pCXR Impression: Cardiomegaly and mild interstitial pulmonary edema -Acute on chronic systolic heart failure due to afib rvr due to noncompliance: Counseling done, Consulted Cardiology, treat with iv lasix and monitor renal function with daily bmp, repeat ECHO reviewed -AFib with RVR: treated with iv Cardizem drip, weaned off, now on coreg, on Eliquis, check PT/INR -H/o bilateral PE/leg DVT: continue Anticoagulation -IDDM with complication of peripheral neuropathy: continue lyrica, treat with insulin, ssi, Accucheck, ADA diet, last a1c was 6.2 on 09/22/18 -AOCD: monitor cbc closely, check coags -Hypertensive heart disease: continue medical management -Gout by h/o: continue colchine -COPD by h/o: prn nebs -BPH by h/o: flomax -GERD: ppi Disposition: DC-01 TO HOME OR SELFCARE Time spent for discharge: 35 minutes Core Measure Documentation - Palliative Care Palliative Care/ Comfort Measures: Not Applicable - Core Measures Any of the following diagnoses?: DVT/PE, heart failure - VTE Discharge Requirements Deep Vein Thrombosis/Pulmonary Embolism Present on Admission: Yes Has pt received <5 days of overlap therapy or INR<2.0: No (on eliquis) Anticoagulant overlap therapy prescribed at discharge: No Contraindication No Overlap Therapy order at DC: Not Indicated - Heart Failure Discharge Requirements ADRIAN/ARB for LVSD if EF <40%: Yes Beta elena at discharge: Yes Exam - Physical Exam Narrative exam: Gen: chronically disable, NAD, Awake, Alert, Orientated HEENT: NCAT, EOMI, PERRL, OP Clear Neck: supple, no adenopathy, no thyromegaly, + JVD CVS/Heart: irregular irregular, normal S1S2, pulses present bilaterally Chest/Lungs: diminished bs bilaterallly, Symmetrical chest expansion, good air entry bilaterally GI/Abdomen: soft, NTND, good bowel sounds, no guarding or rebound /Bladder: no suprapubic tenderness, no CVA or paraspinal tenderness Extermity/Skin: +2 ble pitting edema, no obvious rash MSK: FROM x 4 Neuro: CN 2-12 grossly intact, no new focal deficits Psych: calm - Constitutional Vitals: Temp Pulse Resp BP Pulse Ox 97.9 F 104 H 20 145/82 97 11/04/18 07:31 11/04/18 13:02 11/04/18 08:30 11/04/18 13:02 11/04/18 07:31 Plan Activity: other (no strenous activity unless cleared by PCP) Diet: low salt Special Instructions: record daily BP diary Follow up with: CESAR ALVAREZ MD [Primary Care Provider] - 3-5 Days JUVENAL MCCANN MD [Staff Physician] - 7 Days Prescriptions: oxyCODONE /ACETAMINOPHEN [Percocet 5/325 mg] 1 tab PO TID PRN #6 tablet PRN Reason: Pain , Severe (7-10)
[2018-11-04 16:51] VITALS: BP 139/78
--- NOTE | 2018-11-05 02:10 | Treadmill Report ---
SINGLE ISOTOPE DUAL STUDY MYOCARDIAL PERFUSION SCAN REPORT AGE: 68 SEX: Male. REFERRING PHYSICIAN: Dr. Loza, hospitalist. DESCRIPTION OF PROCEDURE: The patient received 10 mCi of technetium 99m Myoview intravenously under resting conditions. Resting myocardial perfusion scan was done. Subsequently, the patient underwent Lexiscan stress test as per the protocol. Subsequently, the patient underwent Lexiscan stress test as per the protocol. The patient received 28 mCi of technetium 99m Myoview during the stress test. After 30-60 minutes, post stress images were done. Computerized reconstruction images were performed for analysis. The post-stress images revealed a small mild mid/distal inferior wall perfusion defect. Gated study did reveal global left ventricular systolic dysfunction with LVEF of 29%. Mildly dilated left ventricle was seen. The resting images revealed the perfusion defect seen in the stress images. CONCLUSION: 1. Small mild fixed mid/distal inferior wall perfusion defect. 2. Mildly dilated left ventricle. 3. Severe global left ventricular systolic dysfunction with LVEF of 29%. [facility]# [id number] [facility]
== END 2018-11-04 17:35 | disposition home health service (06) | DRG 308 ==
LOC: ED 04:45 → CC1 08:53 → 4A 11-01 13:55
PROVIDERS: ADMIT Internal Medicine; ATTEND Internal Medicine
DX: I48.91 Unspecified atrial fibrillation (principal); I50.23 Acute on chronic systolic (congestive) heart failure; N17.9 Acute kidney failure, unspecified; I42.9 Cardiomyopathy, unspecified; I11.0 Hypertensive heart disease with heart failure; E11.42 Type 2 diabetes mellitus with diabetic polyneuropathy; D63.8 Anemia in other chronic diseases classified elsewhere; M10.9 Gout, unspecified; J44.9 Chronic obstructive pulmonary disease, unspecified; K21.9 Gastro-esophageal reflux disease without esophagitis; N40.0 Benign prostatic hyperplasia without lower urinary tract symptoms; E78.5 Hyperlipidemia, unspecified; E87.6 Hypokalemia; Z79.899 Other long term (current) drug therapy; Z79.4 Long term (current) use of insulin; Z86.711 Personal history of pulmonary embolism; Z86.718 Personal history of other venous thrombosis and embolism; Z79.01 Long term (current) use of anticoagulants; Z87.891 Personal history of nicotine dependence; Z91.14 Patient's other noncompliance with medication regimen; Z71.89 Other specified counseling; Z87.442 Personal history of urinary calculi
CPT/HCPCS: 36415; 71045; 78452; 80048; 80053; 82962; 83735; 83880; 84484; 85025; 85027; 85610; 85730; 93005; 93010; 93017; 93306; 94640; 94644; 94760; 96374; 96375; G0378; A9502; J1815; J1940; J2785; J7512

== ENCOUNTER 2018-11-19 19:34 | Inpatient (IN) | payer MEDICARE ==
[2018-11-19] MEDS ORDERED: NACL 0.9% 500 ML 500 ML IV ONE ×2 (20:10→21:56)
[2018-11-19] MEDS ORDERED: FLAGYL 500 MG/100 ML 500 MG/100 ML BAG IV ONE (20:34)
[2018-11-19] MEDS ORDERED: TYLENOL PO ONE (20:34)
--- NOTE | 2018-11-19 20:36 | Emergency Department Report ---
ED General Adult HPI - General Chief complaint: Nausea/Vomiting/Diarrhea Stated complaint: DIARRHEA X3DAYS Time Seen by Provider: 11/19/18 20:13 Source: patient, EMS (ems notes not available at time of chart dictation), RN notes reviewed, old records reviewed Mode of arrival: Stretcher Limitations: Physical Limitation - History of Present Illness Initial comments: This is a 68-year-old gentleman. The patient does not know who his primary care doctor is. The patient does not know who his billing adjudicator is. His past medical history includes insulin-dependent diabetes, peripheral neuropathy, atrial fibrillation, pulmonary embolus, DVT, reports that he is on eliquis, GERD, congestive heart failure, ejection fraction approximately 25%, COPD, former smoker, gout, hypertension The patient presents to the ER with complaint of diarrhea. The diarrhea is nontraumatic, and present since 2017. He reports that this diarrhea got worse over the past week. He reports multiple episodes of nonbloody, nonbilious diarrhea, no black or tarry stools, and reports to many bowel movements to count today. He also has resolved suprapubic lower abdominal pain. He denies urinary symptoms. Positive fevers, positive chills, positive body aches. Positive chr onic cough, positive chronic shortness of breath. He endorses compliance with his systemic anticoagulation. -: Gradual, days(s) Location: abdomen Radiation: non-radiation Quality: aching Consistency: other Improves with: none Worsens with: none - Related Data Home Medications Medication Instructions Recorded Confirmed Last Taken Tamsulosin [Flomax] 0.4 mg PO QDAY 07/30/18 11/19/18 Unknown Metoprolol [Lopressor TAB] 25 mg PO BID 11/19/18 11/19/18 Unknown Previous Rx's Medication Instructions Recorded Last Taken Type Colchicine 0.6 mg PO QDAY #30 capsule 09/28/18 Unknown Rx predniSONE [Deltasone] 20 mg PO QDAY #7 tablet 09/28/18 Unknown Rx Apixaban [Eliquis] 5 mg PO BID #60 tablet 11/04/18 Unknown Rx Carvedilol [Coreg] 25 mg PO BID #60 tablet 11/04/18 Unknown Rx Insulin Aspart [NovoLOG 100 5 units SUB-Q TIDAC #90 11/04/18 Unknown Rx UNITS/ML VIAL] Insulin Glargine [Lantus VIAL] 10 units SUB-Q QHS #30 11/04/18 Unknown Rx Ipratropium/Albuterol Sulfate 1 puff IH BID #1 11/04/18 Unknown Rx [Combivent Respimat] Lisinopril [Zestril TAB] 2.5 mg PO QDAY tablet 11/04/18 Unknown Rx Meclizine [Antivert] 25 mg PO Q8H PRN #30 tablet 11/04/18 Unknown Rx Pantoprazole [Protonix TAB] 20 mg PO QDAY #20 tablet.dr 11/04/18 Unknown Rx Pregabalin [Lyrica] 50 mg PO BID #60 11/04/18 Unknown Rx oxyCODONE /ACETAMINOPHEN [Percocet 1 tab PO TID PRN #6 tablet 11/04/18 Unknown Rx 5/325 mg] Allergies Allergy/AdvReac Type Severity Reaction Status Date / Time No Known Allergies Allergy Verified 05/05/18 23:54 ED Review of Systems ROS: Stated complaint: DIARRHEA X3DAYS Other details as noted in HPI Constitutional: fever, malaise, weakness Eyes: denies: eye discharge ENT: denies: epistaxis Respiratory: cough Cardiovascular: palpitations Gastrointestinal: abdominal pain, diarrhea. denies: melena, hematochezia Genitourinary: denies: dysuria Musculoskeletal: myalgia Skin: denies: lesions Neurological: weakness Hematological/Lymphatic: denies: easy bleeding ED Past Medical Hx - Past Medical History Previous Medical History?: Yes Hx Hypertension: Yes Hx Congestive Heart Failure: Yes Hx Diabetes: Yes Hx Deep Vein Thrombosis: Yes (both legs) Hx Pulmonary Embolism: Yes (william lungs) Hx Kidney Stones: Yes Hx Asthma: No Hx COPD: Yes Additional medical history: neuropathy. a-fib - Surgical History Past Surgical History?: Yes Additional Surgical History: neck and back surgery 2012 - Social History Smoking Status: Unknown if ever smoked Substance Use Type: Prescribed - Medications Home Medications: Home Medications Medication Instructions Recorded Confirmed Last Taken Type Tamsulosin [Flomax] 0.4 mg PO QDAY 07/30/18 11/19/18 Unknown History Colchicine 0.6 mg PO QDAY #30 capsule 09/28/18 11/19/18 Unknown Rx predniSONE [Deltasone] 20 mg PO QDAY #7 tablet 09/28/18 11/19/18 Unknown Rx Apixaban [Eliquis] 5 mg PO BID #60 tablet 11/04/18 11/19/18 Unknown Rx Carvedilol [Coreg] 25 mg PO BID #60 tablet 11/04/18 11/19/18 Unknown Rx Insulin Aspart [NovoLOG 100 5 units SUB-Q TIDAC #90 11/04/18 11/19/18 Unknown Rx UNITS/ML VIAL] Insulin Glargine [Lantus VIAL] 10 units SUB-Q QHS #30 11/04/18 11/19/18 Unknown Rx Ipratropium/Albuterol Sulfate 1 puff IH BID #1 11/04/18 11/19/18 Unknown Rx [Combivent Respimat] Lisinopril [Zestril TAB] 2.5 mg PO QDAY tablet 11/04/18 11/19/18 Unknown Rx Meclizine [Antivert] 25 mg PO Q8H PRN #30 tablet 11/04/18 11/19/18 Unknown Rx Pantoprazole [Protonix TAB] 20 mg PO QDAY #20 tablet. 11/04/18 11/19/18 Unknown Rx Pregabalin [Lyrica] 50 mg PO BID #60 11/04/18 11/19/18 Unknown Rx oxyCODONE /ACETAMINOPHEN [Percocet 1 tab PO TID PRN #6 tablet 11/04/18 11/19/18 Unknown Rx 5/325 mg] Metoprolol [Lopressor TAB] 25 mg PO BID 11/19/18 11/19/18 Unknown History ED Physical Exam - General Limitations: Physical Limitation General appearance: alert, anxious - Head Head exam: Present: atraumatic, normocephalic - Eye Eye exam: Present: normal appearance, EOMI. Absent: nystagmus - ENT ENT exam: Present: normal exam, normal orophraynx, mucous membranes moist, normal external ear exam - Neck Neck exam: Present: normal inspection, full ROM. Absent: tenderness, meningis mus - Respiratory Respiratory exam: Present: normal lung sounds bilaterally. Absent: respiratory distress - Cardiovascular Cardiovascular Exam: Present: tachycardia, irregular rhythm, normal heart sounds. Absent: systolic murmur, diastolic murmur, rubs, gallop - GI/Abdominal GI/Abdominal exam: Present: soft, distended. Absent: tenderness, guarding, rebound, rigid, pulsatile mass - Rectal Rectal exam: Present: deferred - Extremities Exam Extremities exam: Present: normal inspection, full ROM, other (2+ pulses noted in the bilateral upper, lower extremities. Compartments soft. No long bony tenderness. The pelvis is stable.). Absent: calf tenderness - Back Exam Back exam: Present: normal inspection, full ROM. Absent: tenderness, CVA tenderness (R), CVA tenderness (L), paraspinal tenderness, vertebral tenderness - Neurological Exam Neurological exam: Present: alert, oriented X3, other (Extraocular movements in tact. Tongue midline. No facial droop. Facial sensation intact to light touch in the V1, V2, V3 distribution bilaterally. 5 and 5 strength in 4 extremities.. Sensation is intact to light touch in 4 extremities.). Absent: motor sensory deficit - Psychiatric Psychiatric exam: Present: normal affect, normal mood - Skin Skin exam: Present: warm, dry, intact, normal color. Absent: rash ED Course Vital Signs 11/19/18 11/19/18 11/19/18 19:57 20:00 20:16 Temperature 103 F H Pulse Rate 120 H 147 H Respiratory 16 14 19 Rate Blood Pressure 178/87 178/87 178/87 O2 Sat by Pulse 91 99 98 Oximetry 11/19/18 11/19/18 11/19/18 20:30 20:46 21:00 Temperature Pulse Rate 143 H 140 H Respiratory 12 Rate Blood Pressure 178/87 180/84 180/84 O2 Sat by Pulse 98 99 Oximetry 11/19/18 11/19/18 11/19/18 21:16 21:30 22:16 Temperature Pulse Rate 151 H 138 H 141 H Respiratory 23 Rate Blood Pressure 157/82 157/82 106/56 O2 Sat by Pulse 98 98 95 Oximetry 11/19/18 22:23 Temperature 101.9 F H Pulse Rate Respiratory Rate Blood Pressure O2 Sat by Pulse Oximetry - Reevaluation(s) Reevaluation #1: 11/19/18 22:16 Differential diagnosis, including not limited to: Colitis, diverticulitis, abscess, sepsis, pneumonia, bacteremia, viremia, C. difficile, A. fib with RVR Assessment and plan: 68-year-old gentleman, manifesting sepsis criteria, in the form of fever, tachycardia, A. fib with RVR, reports diarrhea. Patient recently admitted to this hospital for A. fib with RVR, and congestive heart failure Given history of congestive heart failure, recent hospitalization for congestive heart failure and A. fib with RVR, we are reluctant to load the patient with 30 mL/kg of IV fluids. However, we will treat him with small aliquots of fluid, in conjunction with acetaminophen. Reluctant to administer ciarra blocking agents given that this A. fib with RVR is likely secondary to sepsis syndrome. I have a high suspicion for C. difficile given history hospitalizations, therefore, we will cover with Flagyl, obtain CT scan of the abdomen and pelvis, and placed in isolation precautions. Counseled patient on recommendation for admission with initial data points have resulted, the patient is amenable to this plan of care. 11/19/18 22:18 Reevaluation #2: 11/19/18 23:23 CT scan of the abdomen and pelvis negative for acute disease. Still tachycardic, we will give trial doses of diltiazem. Dr. Juarez, Hospital physician, accepts patient to the medical service. Reevaluation #3: 11/19/18 23:32 Patient received 10 mg of diltiazem, followed by 5 mg, heart rate now in the mid 90s. We will defer further rate management and control to the inpatient team. ED Medical Decision Making - Lab Data Result diagrams: 11/19/18 20:20 11/19/18 20:20 Vital Signs 11/19/18 11/19/18 11/19/18 19:57 20:00 20:16 Temperature 103 F H Pulse Rate 120 H 147 H Respiratory 16 14 19 Rate Blood Pressure 178/87 178/87 178/87 O2 Sat by Pulse 91 99 98 Oximetry 11/19/18 11/19/18 11/19/18 20:30 20:46 21:00 Temperature Pulse Rate 143 H 140 H Respiratory 12 Rate Blood Pressure 178/87 180/84 180/84 O2 Sat by Pulse 98 99 Oximetry 11/19/18 11/19/18 21:16 21:30 Temperature Pulse Rate 151 H 138 H Respiratory Rate Blood Pressure 157/82 157/82 O2 Sat by Pulse 98 98 Oximetry Lab Results 11/19/18 11/19/18 11/19/18 Range/Units 20:20 20:20 20:20 WBC 8.4 (4.5-11.0) K/mm3 RBC 4.73 (3.65-5.03) M/mm3 Hgb 10.6 L (11.8-15.2) gm/dl Hct 33.9 L (35.5-45.6) % MCV 72 L (84-94) fl MCH 22 L (28-32) pg MCHC 31 L (32-34) % RDW 21.8 H (13.2-15.2) % Plt Count 165 (140-440) K/mm3 Lymph % (Auto) 6.9 L (13.4-35.0) % Pine % (Auto) 6.3 (0.0-7.3) % Eos % (Auto) 0.2 (0.0-4.3) % Baso % (Auto) 0.1 (0.0-1.8) % Lymph # 0.6 L (1.2-5.4) K/mm3 Pine # 0.5 (0.0-0.8) K/mm3 Eos # 0.0 (0.0-0.4) K/mm3 Baso # 0.0 (0.0-0.1) K/mm3 Seg Neutrophils % 86.5 H (40.0-70.0) % Seg Neutrophils # 7.3 (1.8-7.7) K/mm3 PT 21.8 H (12.2-14.9) Sec. INR 1.95 H (0.87-1.13) VBG pH (7.320-7.420) Sodium 141 (137-145) mmol/L Potassium 3.2 L (3.6-5.0) mmol/L Chloride 101.4 (98-107) mmol/L Carbon Dioxide 25 (22-30) mmol/L Anion Gap 18 mmol/L BUN 15 (9-20) mg/dL Creatinine 1.4 (0.8-1.5) mg/dL Estimated GFR > 60 ml/min BUN/Creatinine Ratio 11 % Glucose 126 H (75-100) mg/dL Lactic Acid (0.7-2.0) mmol/L Calcium 9.3 (8.4-10.2) mg/dL Magnesium (1.7-2.3) mg/dL Total Bilirubin 1.20 (0.1-1.2) mg/dL AST 15 (5-40) units/L ALT 9 (7-56) units/L Alkaline Phosphatase 73 (35-129) units/L Total Creatine Kinase (55-170) units/L Total Protein 8.0 (6.3-8.2) g/dL Albumin 3.4 L (3.9-5) g/dL Albumin/Globulin Ratio 0.7 % 11/19/18 11/19/18 11/19/18 Range/Units 20:20 20:20 20:20 WBC (4.5-11.0) K/mm3 RBC (3.65-5.03) M/mm3 Hgb (11.8-15.2) gm/dl Hct (35.5-45.6) % MCV (84-94) fl MCH (28-32) pg MCHC (32-34) % RDW (13.2-15.2) % Plt Count (140-440) K/mm3 Lymph % (Auto) (13.4-35.0) % Pine % (Auto) (0.0-7.3) % Eos % (Auto) (0.0-4.3) % Baso % (Auto) (0.0-1.8) % Lymph # (1.2-5.4) K/mm3 Pine # (0.0-0.8) K/mm3 Eos # (0.0-0.4) K/mm3 Baso # (0.0-0.1) K/mm3 Seg Neutrophils % (40.0-70.0) % Seg Neutrophils # (1.8-7.7) K/mm3 PT (12.2-14.9) Sec. INR (0.87-1.13) VBG pH 7.379 (7.320-7.420) Sodium (137-145) mmol/L Potassium (3.6-5.0) mmol/L Chloride (98-107) mmol/L Carbon Dioxide (22-30) mmol/L Anion Gap mmol/L BUN (9-20) mg/dL Creatinine (0.8-1.5) mg/dL Estimated GFR ml/min BUN/Creatinine Ratio % Glucose (75-100) mg/dL Lactic Acid 2.10 H* (0.7-2.0) mmol/L Calcium (8.4-10.2) mg/dL Magnesium 1.90 (1.7-2.3) mg/dL Total Bilirubin (0.1-1.2) mg/dL AST (5-40) units/L ALT (7-56) units/L Alkaline Phosphatase (35-129) units/L Total Creatine Kinase 21 L (55-170) units/L Total Protein (6.3-8.2) g/dL Albumin (3.9-5) g/dL Albumin/Globulin Ratio % - EKG Data -: EKG Interpreted by Me Rate: tachycardia - EKG Data 11/19/18 22:18 Atrial fibrillation, variable ventricular rate, QTC 469 ms, ventricular hypertrophy, normal axis, no complaint of chest pain, A. fib with RVR, rate 1 43 bpm, the EKG is abnormal, the EKG is not consistent with ST elevation myocardial infarction. The EKG is morphologically unchanged from prior EKG from 10/31/2018. - Radiology Data Radiology results: pending, report reviewed, image reviewed X-ray of the chest is negative for acute disease Print Report Referring Physician: GARO JONES Patient Name: EDINSON DODD Date of : 1950 Sex: Male Report Date: 2018-11-19 Report Status: Finalized Findings [facility] [address] [place] [address] Cat Scan Report Signed Patient: EDINSON DODD MR#: [id number] : 1950 Acct:[id number] Age/Sex: 68 / M ADM Date: 11/19/18 Loc: ED Attending Dr: Ordering Physician: GARO JONES MD Date of Service: 11/19/18 Procedure(s): CT abdomen pelvis wo con Accession Number(s): [id number] cc: GARO JONES MD CT abdomen pelvis wo con INDICATION / CLINICAL INFORMATION: abd pain sepsis. TECHNIQUE: All CT scans at this location are performed using CT dose reduction for ALARA by means of automated exposure control. COMPARISON: 10/04/2018 FINDINGS: Limited lower thoracic images show no evidence of pulmonary consolidation ABDOMEN: Cholelithiasis. The liver, spleen and pancreas are normal. There are bilateral renal cysts and bilateral nephrolithiasis. No hydronephrosis or ureteral stones. Small bowel is normal. No retroperitoneal or mesenteric adenopathy. Pelvis: The appendix is normal. There is moderate gaseous distention of the transverse colon. No inflammatory changes or dependent fluid collections are present in the pelvis. Degenerative changes are seen in the lower lumbar spine. IMPRESSION: 1. Bilateral nephrolithiasis without hydronephrosis. 2. Cholelithiasis. 3. No acute inflammatory changes are seen in the abdomen or pelvis. Signer Name: Murtaza Lozano MD Signed: 11/19/2018 10:33 PM Workstation Name: [id number] Transcribed By: GA Dictated By: Murtaza Lozano MD Electronically Authenticated By: Murtaza Lozano MD Signed Date/Time: 11/19/18 3191 Critical Care Time: Yes Critical care time in (mins) excluding proc time.: 35 Critical care attestation.: If time is entered above; I have spent that time in minutes in the direct care of this critically ill patient, excluding procedure time. ED Disposition Clinical Impression: Sepsis, Atrial fibrillation with RVR Disposition: OP ADMIT IP TO THIS HOSP Is pt being admited?: Yes Condition: Fair Referrals: CESAR ALVAREZ MD [Primary Care Provider] - 3-5 Days
[2018-11-19 20:38] LABS: Basophils % (Auto) 0.1 % (0.0-1.8); Eosinophils % (Auto) 0.2 % (0.0-4.3); Hematocrit 33.9 % (35.5-45.6); Hemoglobin 10.6 gm/dl (11.8-15.2); Lymphocytes # (Auto) 0.6 K/mm3 (1.2-5.4); Lymphocytes % (Auto) 6.9 % (13.4-35.0); Mean Corpuscular HGB Conc 31 % (32-34); Mean Corpuscular Volume 72 fl (84-94); Monocytes # (Auto) 0.5 K/mm3 (0.0-0.8); Monocytes % (Auto) 6.3 % (0.0-7.3); Platelet Count 165 K/mm3 (140-440); Red Blood Count 4.73 M/mm3 (3.65-5.03)
[2018-11-19 20:39] LABS: Red Cell Distribution Width 21.8 % (13.2-15.2)
[2018-11-19 20:52] LABS: INR 1.95 (0.87-1.13)
[2018-11-19 21:01] LABS: Alanine Aminotransferase 9 units/L (7-56); Albumin 3.4 g/dL (3.9-5); BUN/Creatinine Ratio 11; Blood Urea Nitrogen 15 mg/dL (9-20); Calcium 9.3 mg/dL (8.4-10.2); Hemolysis Index 0
--- NOTE | 2018-11-19 21:35 | XRay Report ---
CHEST 1 VIEW INDICATION / CLINICAL INFORMATION: possible Sepsis. COMPARISON: 11/02/2018 FINDINGS: SUPPORT DEVICES: None. HEART / MEDIASTINUM: Mild cardiomegaly is unchanged LUNGS / PLEURA: No significant pulmonary or pleural abnormality. No pneumothorax. ADDITIONAL FINDINGS: No significant additional findings. IMPRESSION: 1. No acute findings. Signer Name: Murtaza Lozano MD Signed: 11/19/2018 9:30 PM Workstation Name: [id number]
[2018-11-19] MEDS ORDERED: FLAGYL PO STA (22:17)
[2018-11-19] MEDS: KCL 10MEQ/100ML 10 MEQ/100 ML BAG IV SCH ×2 (22:23→23:37)
--- NOTE | 2018-11-19 22:37 | Cat Scan Report ---
CT abdomen pelvis wo con INDICATION / CLINICAL INFORMATION: abd pain sepsis. TECHNIQUE: All CT scans at this location are performed using CT dose reduction for ALARA by means of automated e xposure control. COMPARISON: 10/04/2018 FINDINGS: Limited lower thoracic images show no evidence of pulmonary consolidation ABDOMEN: Cholelithiasis. The liver, spleen and pancreas are normal. There are bilateral renal cysts and bilateral nephrolithiasis. No hydronephrosis or ureteral stones. Small bowel is normal. No retroperitoneal or mesenteric adenopathy. Pelvis: The appendix is normal. There is moderate gaseous distention of the transverse colon. No inflammatory changes or dependent fluid collections are present in the pelvis. Degenerative changes are seen in the lower lumbar spine. IMPRESSION: 1. Bilateral nephrolithiasis without hydronephrosis. 2. Cholelithiasis. 3. No acute inflammatory changes are seen in the abdomen or pelvis. Signer Name: Murtaza Lozano MD Signed: 11/19/2018 10:33 PM Workstation Name: [id number]
[2018-11-19] MEDS ORDERED: CARDIZEM ONE (23:24)
--- NOTE | 2018-11-19 23:55 | History and Physical Report ---
History of Present Illness Date of examination: 11/19/18 History of present illness: 68-year-old man with a history of hypertension, diabetes, A. fib, PE, DVT, CHF, gout, COPD, BPH comes emergency room with complaints of diarrhea S1 week. He has been having diarrhea intermittently since 2017. Slow complaint that is ri ght knee is swollen, difficult to ambulate Review of systems Constitutional: no weight loss, chills Ears, eyes, nose, mouth and throat: no nasal congestion, no nasal discharge, no sinus pressure, no vision change, no red eye. Neck: No neck pain or rigidity. Cardiovascular: no palpitations, chest pain Respiratory: no cough, shortness of breath Gastrointestinal: no hematochezia, abdominal pain Genitourinary : no frequency , no hematuria Musculoskeletal: no joint swelling or muscle ache Integumentary: no rash, no pruritis Neurological: no parathesias, no focal weakness Endocrine: no cold or heat intolerance, no polyuria or polydipsia Hematologic/Lymphatic: no easy bruising, no easy bleeding, no gland swelling Allergic/Immunologic: no urticaria, no angioedema. PAST MEDICAL HISTORY: hypertension, diabetes, A. fib, PE, DVT ruled out, COPD, BPH CHF PAST SURGICAL HISTORY: Neck and back SOCIAL HISTORY: Denies alcohol, drugs, tobacco FAMILY HISTORY: Hypertension Medications and Allergies Allergies Allergy/AdvReac Type Severity Reaction Status Date / Time No Known Allergies Allergy Verified 05/05/18 23:54 Home Medications Medication Instructions Recorded Confirmed Last Taken Type Tamsulosin [Flomax] 0.4 mg PO QDAY 07/30/18 11/19/18 Unknown History Colchicine 0.6 mg PO QDAY #30 capsule 09/28/18 11/19/18 Unknown Rx predniSONE [Deltasone] 20 mg PO QDAY #7 tablet 09/28/18 11/19/18 Unknown Rx Apixaban [Eliquis] 5 mg PO BID #60 tablet 11/04/18 11/19/18 Unknown Rx Carvedilol [Coreg] 25 mg PO BID #60 tablet 11/04/18 11/19/18 Unknown Rx Insulin Aspart [NovoLOG 100 5 units SUB-Q TIDAC #90 11/04/18 11/19/18 Unknown Rx UNITS/ML VIAL] Insulin Glargine [Lantus VIAL] 10 units SUB-Q QHS #30 11/04/18 11/19/18 Unknown Rx Ipratropium/Albuterol Sulfate 1 puff IH BID #1 11/04/18 11/19/18 Unknown Rx [Combivent Respimat] Lisinopril [Zestril TAB] 2.5 mg PO QDAY tablet 11/04/18 11/19/18 Unknown Rx Meclizine [Antivert] 25 mg PO Q8H PRN #30 tablet 11/04/18 11/19/18 Unknown Rx Pantoprazole [Protonix TAB] 20 mg PO QDAY #20 tablet. 11/04/18 11/19/18 Unknown Rx Pregabalin [Lyrica] 50 mg PO BID #60 11/04/18 11/19/18 Unknown Rx oxyCODONE /ACETAMINOPHEN [Percocet 1 tab PO TID PRN #6 tablet 11/04/18 11/19/18 Unknown Rx 5/325 mg] Metoprolol [Lopressor TAB] 25 mg PO BID 11/19/18 11/19/18 Unknown History Active Meds: Active Medications Potassium Chloride (Kcl 10meq/100ml) 10 meq in 100 mls @ 100 mls/hr IV Q1H JERRY Stop: 11/20/18 01:59 Last Admin: 11/19/18 23:37 Dose: 100 mls/hr Documented by: Exam - Physical Exam Narrative exam: General Apperance: The patient sitting in bed no acute distress HEENT: Normocephalic, atraumatic. Pupils equally round and reactive to light, extraocular movement intact, and no sclericterus or JVD or thyromegaly or nodule. Neck supple, no carotid bruit, mucous membranes moist, no exudate or erythema Heart: S1-S2, regular is rhythm Lungs: Clear to auscultation bilaterally, breathing comfortable Abdomen: Positive bowel sounds, soft, nontender, nondistended, no organomegaly Extremities: No edema cyanosis clubbing, knee swelling Skin: no rash, nodule, warm and dry Neuro:CN 2 -12 intact, motor/sensory intact, speech is fluent - Constitutional Vitals: Temp Pulse Resp BP Pulse Ox 101.9 F H 102 H 18 133/74 97 11/19/18 22:23 11/19/18 23:30 11/19/18 23:30 11/19/18 23:30 11/19/18 23:30 Results - Labs CBC & Chem 7: 11/20/18 02:54 11/20/18 02:54 Labs: Abnormal lab results 11/19/18 11/19/18 11/19/18 Range/Units 20:20 20:20 20:20 Hgb 10.6 L (11.8-15.2) gm/dl Hct 33.9 L (35.5-45.6) % MCV 72 L (84-94) fl MCH 22 L (28-32) pg MCHC 31 L (32-34) % RDW 21.8 H (13.2-15.2) % Lymph % (Auto) 6.9 L (13.4-35.0) % Lymph # 0.6 L (1.2-5.4) K/mm3 Seg Neutrophils % 86.5 H (40.0-70.0) % PT 21.8 H (12.2-14.9) Sec. INR 1.95 H (0.87-1.13) Potassium 3.2 L (3.6-5.0) mmol/L Glucose 126 H (75-100) mg/dL Lactic Acid (0.7-2.0) mmol/L Total Creatine Kinase (55-170) units/L Albumin 3.4 L (3.9-5) g/dL 11/19/18 11/19/18 Range/Units 20:20 20:20 Hgb (11.8-15.2) gm/dl Hct (35.5-45.6) % MCV (84-94) fl MCH (28-32) pg MCHC (32-34) % RDW (13.2-15.2) % Lymph % (Auto) (13.4-35.0) % Lymph # (1.2-5.4) K/mm3 Seg Neutrophils % (40.0-70.0) % PT (12.2-14.9) Sec. INR (0.87-1.13) Potassium (3.6-5.0) mmol/L Glucose (75-100) mg/dL Lactic Acid 2.10 H* (0.7-2.0) mmol/L Total Creatine Kinase 21 L (55-170) units/L Albumin (3.9-5) g/dL - Imaging and Cardiology CT scan - abdomen: report reviewed CT scan - pelvis: report reviewed Assessment and Plan Assessment Acute on chronic diarrhea Acute gout hypertension diabetes A. fib PE, DVT CHF, stable COPD BPH Plan: Check stool for culture, C. difficile Fingersticks initiate insulin sliding-scale start IV morphine, colchicine, consult otho, check xray knee Continue appropriate outpatient medications DVT prophylaxis
[2018-11-20] MEDS ORDERED: D5W IV STA (00:10)
[2018-11-20] MEDS ORDERED: CARDIZEM IV ONE ×2 (00:10)
[2018-11-20] MEDS ORDERED: CARDIZEM IV STA (00:10)
[2018-11-20] MEDS ORDERED: CARDIZEM ONE (00:12)
[2018-11-20] MEDS ORDERED: KCL 10MEQ/100ML 10 MEQ/100 ML BAG IV ONE (00:51)
[2018-11-20] MEDS: KCL 10MEQ/100ML 10 MEQ/100 ML BAG IV SCH ×2 (00:54→03:15)
[2018-11-20] MEDS ORDERED: TYLENOL PO PRN (01:43)
[2018-11-20] MEDS ORDERED: SODIUM CHLORIDE FLUSH SYRINGE 10 ML IV PRN (01:43)
[2018-11-20] MEDS ORDERED: ZOFRAN IV PRN (01:43)
[2018-11-20] MEDS ORDERED: PERCOCET 5/325 PO PRN ×2 (01:43→15:37)
[2018-11-20 03:26] LABS: BUN/Creatinine Ratio 13; Blood Urea Nitrogen 17 mg/dL (9-20); Calcium 8.7 mg/dL (8.4-10.2); Hemolysis Index 1
[2018-11-20 03:37] LABS: Hematocrit 30.8 % (35.5-45.6); Hemoglobin 9.8 gm/dl (11.8-15.2); Mean Corpuscular HGB Conc 32 % (32-34); Mean Corpuscular Volume 73 fl (84-94); Platelet Count 124 K/mm3 (140-440); Red Blood Count 4.24 M/mm3 (3.65-5.03); Red Cell Distribution Width 21.4 % (13.2-15.2)
[2018-11-20 03:38] LABS: Basophils % (Auto) 0.4 % (0.0-1.8); Lymphocytes # (Auto) 1.1 K/mm3 (1.2-5.4); Lymphocytes % (Auto) 13.3 % (13.4-35.0); Monocytes # (Auto) 0.8 K/mm3 (0.0-0.8); Monocytes % (Auto) 9.5 % (0.0-7.3)
[2018-11-20] MEDS ORDERED: K-DUR PO ONE (05:35)
[2018-11-20] MEDS ORDERED: MORPHINE IV PRN (05:36)
[2018-11-20] MEDS: FLAGYL PO SCH ×2 (05:51→13:56)
--- NOTE | 2018-11-20 08:49 | XRay Report ---
RIGHT KNEE, 3 VIEWS INDICATION: KNEE PAIN, SWELLING. COMPARISON: None. IMPRESSION: A large joint effusion extends into suprapatellar bursa. Bone mineralization is within n ormal limits. Mild retropatellar and tibial spine spurring is identified. No evidence for fracture, b one lesion or osteochondral defect. If internal derangement is suspected, MRI right knee without con trast will provide the most information. Signer Name: Sukhwinder Valentino Jr, MD Signed: 11/20/2018 8:44 AM Workstation Name: [id number]
[2018-11-20] MEDS: SODIUM CHLORIDE FLUSH SYRINGE 10 ML IV SCH ×2 (09:29→21:55)
[2018-11-20] MEDS ORDERED: LEVAQUIN 500MG/100ML 500 MG/100 ML BAG IV SCH (10:00)
[2018-11-20] MEDS ORDERED: COLCHICINE PO SCH (10:00)
[2018-11-20] MEDS ORDERED: K-DUR PO NR (11:18)
--- NOTE | 2018-11-20 11:19 | Progress Note ---
Assessment and Plan Assessment and plan: Patient is a 68 yo man with a history of IDDM with peripheral neuropathy, Afib, PE, DVT on Eliquis GIB on Xarelto, AOCD, CHF EF 25%, hypertension, Gout, COPD/former smoker quit 10 years ago, GERD and BPH who presents to [facility] with complaints of worsening diarrhea. The diarrhea is nontraumatic, and present since 2017 but worse in the last week. He reports multiple episodes of nonbloody, nonbilious diarrhea, no black or tarry stools, and reports to many bowel movements to count today. He reported abdominal pain. Patient on admission was placed on isolation precautions since he has had multiple recent hospitalizations and concerning for C.DIFF. Patient was started on Patient received 10 mg of diltiazem, followed by 5 mg, heart rate now in the mid 90s in the ED. CTA/P: IMPRESSION: 1. Bilateral nephrolithiasis without hydronephrosis. 2. Cholelithiasis. 3. No acute inflammatory changes are seen in the abdomen or pelvis. Acute on chronic diarrhea Sepsis possible GI source Acute gout hypertension diabetes mellitus A. fib WITH RVR PE, DVT Systolic CHF, stable COPD BPH Plan: Supportive care Await Check stool for culture, C. difficile Consult ID Fingersticks initiate insulin sliding-scale Resume home meds PT/OT eval noted IV morphine, colchicine, consult otho, check xray knee Continue appropriate outpatient medications DVT prophylaxis Plan discussed with the patient. History Interval history: Patient seen and examined, resting comfortable. Reports some improvement. Hospitalist Physical - Physical exam Narrative exam: General Apperance: The patient is lying in bed no acute distress HEENT: Normocephalic, Atraumatic. Pupils equally round and reactive to light, extraocular movement intact, and no sclericterus or JVD or thyromegaly or nodule. Neck supple, no carotid bruit, mucous membranes moist, no exudate or erythema Heart: S1-S2, irregular is rhythm Lungs: Clear to auscultation bilaterally, breathing comfortable Abdomen: Distended but large panus, Positive bowel sounds, soft, nontender, no organomegaly Extremities: trace edema cyanosis clubbing, knee swelling Skin: No rash, nodule, warm and dry Neuro: CN 2 -12 intact, motor/sensory intact, speech is fluent, ambulates with walker - Constitutional Vitals: Temp Pulse Resp BP Pulse Ox 98.0 F 102 H 20 120/66 99 11/20/18 07:45 11/20/18 07:46 11/20/18 07:45 11/20/18 07:45 11/20/18 09:24 Results - Labs CBC & Chem 7: 11/20/18 02:54 11/20/18 02:54 Labs: Laboratory Last Values WBC 8.4 K/mm3 (4.5-11.0) 11/20/18 02:54 RBC 4.24 M/mm3 (3.65-5.03) 11/20/18 02:54 Hgb 9.8 gm/dl (11.8-15.2) L 11/20/18 02:54 Hct 30.8 % (35.5-45.6) L 11/20/18 02:54 MCV 73 fl (84-94) L 11/20/18 02:54 MCH 23 pg (28-32) L 11/20/18 02:54 MCHC 32 % (32-34) 11/20/18 02:54 RDW 21.4 % (13.2-15.2) H 11/20/18 02:54 Plt Count 124 K/mm3 (140-440) L 11/20/18 02:54 Lymph % (Auto) 13.3 % (13.4-35.0) L 11/20/18 02:54 [place] % (Auto) 9.5 % (0.0-7.3) H 11/20/18 02:54 Eos % (Auto) 0.0 % (0.0-4.3) 11/20/18 02:54 Baso % (Auto) 0.4 % (0.0-1.8) 11/20/18 02:54 Lymph # 1.1 K/mm3 (1.2-5.4) L 11/20/18 02:54 [place] # 0.8 K/mm3 (0.0-0.8) 11/20/18 02:54 Eos # 0.0 K/mm3 (0.0-0.4) 11/20/18 02:54 Baso # 0.0 K/mm3 (0.0-0.1) 11/20/18 02:54 Seg Neutrophils % 76.8 % (40.0-70.0) H 11/20/18 02:54 Seg Neutrophils # 6.4 K/mm3 (1.8-7.7) 11/20/18 02:54 PT 21.8 Sec. (12.2-14.9) H 11/19/18 20:20 INR 1.95 (0.87-1.13) H 11/19/18 20:20 VBG pH 7.379 (7.320-7.420) 11/19/18 20:20 Sodium 141 mmol/L (137-145) 11/20/18 02:54 Potassium 3.2 mmol/L (3.6-5.0) L 11/20/18 02:54 Chloride 105.3 mmol/L (98-107) 11/20/18 02:54 Carbon Dioxide 24 mmol/L (22-30) 11/20/18 02:54 15 mmol/L 11/20/18 02:54 BUN 17 mg/dL (9-20) 11/20/18 02:54 1.3 mg/dL (0.8-1.5) 11/20/18 02:54 Estimated GFR > 60 ml/min 11/20/18 02:54 13 % 11/20/18 02:54 Glucose 130 mg/dL (75-100) H 11/20/18 02:54 POC Glucose 121 (70-105) H 11/20/18 07:52 Lactic Acid 1.00 mmol/L (0.7-2.0) 11/19/18 23:02 Calcium 8.7 mg/dL (8.4-10.2) 11/20/18 02:54 Magnesium 1.90 mg/dL (1.7-2.3) 11/19/18 20:20 1.20 mg/dL (0.1-1.2) 11/19/18 20:20 AST 15 units/L (5-40) 11/19/18 20:20 ALT 9 units/L (7-56) 11/19/18 20:20 73 units/L (35-129) 11/19/18 20:20 21 units/L (55-170) L 11/19/18 20:20 8.0 g/dL (6.3-8.2) 11/19/18 20:20 3.4 g/dL (3.9-5) L 11/19/18 20:20 0.7 % 11/19/18 20:20 Active Medications - Current Medications Current Medications: Generic Name Dose Route Start Last Admin Trade Name Suzy PRN Reason Stop Dose Admin Acetaminophen 650 mg 11/20/18 01:43 Tylenol PO Q4H PRN Pain MILD(1-3)/Fever >100.5/LOPEZ Colchicine 0.6 mg 11/20/18 10:00 11/20/18 09:29 Colchicine PO 0.6 mg DAILY JERRY Administration Levofloxacin/Dextrose 500 mg in 100 mls @ 100 mls/hr 11/20/18 10:00 11/20/18 09:30 Levaquin 500mg/100ml IV 100 mls/hr Q24HR JERRY Administration Protocol Magnesium Sulfate 1 gm/ Sodium 52 mls @ 52 mls/hr 11/20/18 11:18 Chloride IV 11/20/18 12:17 ONCE ONE Metronidazole 500 mg 11/20/18 06:00 11/20/18 05:51 Flagyl PO 500 mg Q8HR JERRY Administration Protocol Morphine Sulfate 2 mg 11/20/18 05:36 Morphine IV Q4H PRN Pain, Moderate (4-6) Ondansetron HCl 4 mg 11/20/18 01:43 Zofran IV Q8H PRN Nausea And Vomiting Oxycodone/Acetaminophen 1 tab 11/20/18 01:43 Percocet 5/325 PO Q6H PRN Pain, Moderate (4-6) Potassium Chloride 40 meq 11/20/18 11:18 K-Dur PO 11/20/18 11:19 ONCE ONE Sodium Chloride 10 ml 11/20/18 10:00 11/20/18 09:29 Sodium Chloride Flush Syringe 10 Ml IV 10 ml BID JERRY Administration Sodium Chloride 10 ml 11/20/18 01:43 Sodium Chloride Flush Syringe 10 Ml IV PRN PRN LINE FLUSH
[2018-11-20] MEDS ORDERED: MAGNESIUM SULFATE 1 GM in NACL 0.9% 50 ML IV ONE (12:30)
[2018-11-20] MEDS ORDERED: ANTIVERT PO PRN (15:37)
[2018-11-20 15:47] LABS: Bacteria,Urine 1+ /HPF (Negative); Bilirubin,Urine NEG (Negative); Blood,Urine SM (Negative); Color,Urine Yellow (Yellow); Mucus,Urine FEW /HPF
--- NOTE | 2018-11-20 15:47 | Consultation ---
History of Present Illness - Reason for Consult Consult date: 11/20/18 - History of Present Illness 68 yo M PMHx HTN, DM2, Afib, DVT, CHF, gout, COPD, BPH presents complaining of diarrhea. He notes the diarrhea began approximately one week prior to admission, however he has intermittent diarrhea for the past 2 years. He notes that it is significantly worse now over the past two weeks than his usual. Notes it is loose in character and is going approximately 15 times per day. He was recently admitted inpatient here last month and thinks he received antibiotics at that time. He complains of fevers but denies chills and sweats. He previously had an EGD/colonoscopy which he says was normal and did not elucidate the cause of his diarrhea. He also complains of knee pain which he attributes to his gout. Febrile to 101.9 on admission with a normal white count. Currently receiving levofloxacin and metronidazole. Blood and stool culture negative so far. CTAP showing bilateral nephrolithiasis and cholelithiasis, but no acute inflammation. Past History Past Medical History: atrial fib, COPD, DVT, hypertension, hyperlipidemia Past Surgical History: No surgical history Social history: single, Lives alone Family history: diabetes, hypertension Medications and Allergies Allergies Allergy/AdvReac Type Severity Reaction Status Date / Time No Known Allergies Allergy Verified 05/05/18 23:54 Home Medications Medication Instructions Recorded Confirmed Last Taken Type Tamsulosin [Flomax] 0.4 mg PO QDAY 07/30/18 11/19/18 Unknown History Colchicine 0.6 mg PO QDAY #30 capsule 09/28/18 11/19/18 Unknown Rx predniSONE [Deltasone] 20 mg PO QDAY #7 tablet 09/28/18 11/19/18 Unknown Rx Apixaban [Eliquis] 5 mg PO BID #60 tablet 11/04/18 11/19/18 Unknown Rx Carvedilol [Coreg] 25 mg PO BID #60 tablet 11/04/18 11/19/18 Unknown Rx Insulin Aspart [NovoLOG 100 5 units SUB-Q TIDAC #90 11/04/18 11/19/18 Unknown Rx UNITS/ML VIAL] Insulin Glargine [Lantus VIAL] 10 units SUB-Q QHS #30 11/04/18 11/19/18 Unknown Rx Ipratropium/Albuterol Sulfate 1 puff IH BID #1 11/04/18 11/19/18 Unknown Rx [Combivent Respimat] Lisinopril [Zestril TAB] 2.5 mg PO QDAY tablet 11/04/18 11/19/18 Unknown Rx Meclizine [Antivert] 25 mg PO Q8H PRN #30 tablet 11/04/18 11/19/18 Unknown Rx Pantoprazole [Protonix TAB] 20 mg PO QDAY #20 tablet. 11/04/18 11/19/18 Unknown Rx Pregabalin [Lyrica] 50 mg PO BID #60 11/04/18 11/19/18 Unknown Rx oxyCODONE /ACETAMINOPHEN [Percocet 1 tab PO TID PRN #6 tablet 11/04/18 11/19/18 Unknown Rx 5/325 mg] Metoprolol [Lopressor TAB] 25 mg PO BID 11/19/18 11/19/18 Unknown History Active Meds: Active Medications Acetaminophen (Tylenol) 650 mg PO Q4H PRN PRN Reason: Pain MILD(1-3)/Fever >100.5/LOPEZ Apixaban (Eliquis) 5 mg PO BID [facility]; Protocol Carvedilol (Coreg) 25 mg PO BID [facility] Colchicine (Colchicine) 0.6 mg PO QDAY [facility] Levofloxacin/Dextrose (Levaquin 500mg/100ml) 500 mg in 100 mls @ 100 mls/hr IV Q24HR [facility]; Protocol Last Admin: 11/20/18 09:30 Dose: 100 mls/hr Documented by: Insulin Glargine (Lantus) 10 units SUB-Q QHS [facility] Lisinopril (Zestril) 2.5 mg PO QDAY [facility] Meclizine HCl (Antivert) 25 mg PO Q8H PRN PRN Reason: Vertigo Metoprolol Tartrate (Lopressor) 25 mg PO BID [facility] Metronidazole (Flagyl) 500 mg PO Q8HR [facility]; Protocol Last Admin: 11/20/18 13:56 Dose: 500 mg Documented by: Miscellaneous Medication (Pregabalin [Lyrica]) 50 mg PO BID [facility] Morphine Sulfate (Morphine) 2 mg IV Q4H PRN PRN Reason: Pain, Moderate (4-6) Ondansetron HCl (Zofran) 4 mg IV Q8H PRN PRN Reason: Nausea And Vomiting Oxycodone/Acetaminophen (Percocet 5/325) 1 tab PO TID PRN PRN Reason: Pain , Severe (7-10) Pantoprazole Sodium (Protonix) 20 mg PO QDAY JERRY Prednisone (Deltasone) 20 mg PO QDAY [facility] Sodium Chloride (Sodium Chloride Flush Syringe 10 Ml) 10 ml IV BID [facility] Last Admin: 11/20/18 09:29 Dose: 10 ml Documented by: Sodium Chloride (Sodium Chloride Flush Syringe 10 Ml) 10 ml IV PRN PRN PRN Reason: LINE FLUSH Tamsulosin HCl (Flomax) 0.4 mg PO QDAY [facility] Review of Systems Constitutional: fever, no weight loss, no weight gain, no chills, no sweats Ears, nose, mouth and throat: no sinus pain, no dysphagia, no sore throat Cardiovascular: no chest pain, no orthopnea, no palpitations, no edema Respiratory: no cough, no cough with sputum, no excessive sputum Gastrointestinal: abdominal pain, diarrhea, no nausea, no vomiting Genitourinary Male: no dysuria, no flank pain, no urinary frequency, no urinary hesitancy Musculoskeletal: no low back pain, no shooting leg pain, no leg numbness/tingl ing Integumentary: no rash, no pruritis, no redness, no sores Neurological: no paralysis, no weakness, no parathesias, no numbness Endocrine: no cold intolerance, no heat intolerance, no polydipsia, no polyuria Hematologic/Lymphatic: no easy bruising, no easy bleeding, no lymphadenopathy Physical Examination - Physical Exam Narrative exam: Constitutional: awake, no distress, following commands Head, Ears, Nose: Normocephalic, atraumatic. External ears, nose normal Eyes: Conjunctivae/corneas clear. No icterus. No ptosis. Neck: Supple, no meningeal signs Oral: fair dentition, moist mucous membranes Cardiovascular: S1, S2 normal. Normal rhythm Respiratory: Good air entry, clear to auscultation bilaterally GI: Soft, butch-umbilical tenderness; bowel sounds normal. No peritoneal signs Musculoskeletal: No pedal edema, positive R knee edema, tenderness Skin: No rash or abscess Hem/Lymphatic: No palpable cervical or supraclavicular nodes. No lymphangitis Psych: no agitation Neurological: Moves all extremities, no focal defects - Constitutional Vitals: Vital Signs Temp Pulse Resp BP Pulse Ox 97.5 F L 101 H 20 123/78 98 11/20/18 14:06 11/20/18 14:08 11/20/18 14:06 11/20/18 14:06 11/20/18 14:08 Temperature -Last 24 Hours Temperature 97.5 F Temperature 98.0 F Temperature 99.6 F Temperature 101.9 F Temperature 103 F Results - Labs CBC & Chem 7: 11/20/18 02:54 11/20/18 02:54 Labs: Abnormal lab results 11/19/18 11/19/18 11/19/18 Range/Units 20:20 20:20 20:20 Hgb 10.6 L (11.8-15.2) gm/dl Hct 33.9 L (35.5-45.6) % MCV 72 L (84-94) fl MCH 22 L (28-32) pg MCHC 31 L (32-34) % RDW 21.8 H (13.2-15.2) % Plt Count (140-440) K/mm3 Lymph % (Auto) 6.9 L (13.4-35.0) % [place] % (Auto) (0.0-7.3) % Lymph # 0.6 L (1.2-5.4) K/mm3 Seg Neutrophils % 86.5 H (40.0-70.0) % PT 21.8 H (12.2-14.9) Sec. INR 1.95 H (0.87-1.13) Potassium 3.2 L (3.6-5.0) mmol/L Glucose 126 H (75-100) mg/dL POC Glucose (70-105) Lactic Acid (0.7-2.0) mmol/L Total Creatine Kinase (55-170) units/L Albumin 3.4 L (3.9-5) g/dL 11/19/18 11/19/18 11/20/18 Range/Units 20:20 20:20 02:54 Hgb 9.8 L (11.8-15.2) gm/dl Hct 30.8 L (35.5-45.6) % MCV 73 L (84-94) fl MCH 23 L (28-32) pg MCHC (32-34) % RDW 21.4 H (13.2-15.2) % Plt Count 124 L (140-440) K/mm3 Lymph % (Auto) 13.3 L (13.4-35.0) % [place] % (Auto) 9.5 H (0.0-7.3) % Lymph # 1.1 L (1.2-5.4) K/mm3 Seg Neutrophils % 76.8 H (40.0-70.0) % PT (12.2-14.9) Sec. INR (0.87-1.13) Potassium (3.6-5.0) mmol/L Glucose (75-100) mg/dL POC Glucose (70-105) Lactic Acid 2.10 H* (0.7-2.0) mmol/L Total Creatine Kinase 21 L (55-170) units/L Albumin (3.9-5) g/dL 11/20/18 11/20/18 11/20/18 Range/Units 02:54 07:52 11:46 Hgb (11.8-15.2) gm/dl Hct (35.5-45.6) % MCV (84-94) fl MCH (28-32) pg MCHC (32-34) % RDW (13.2-15.2) % Plt Count (140-440) K/mm3 Lymph % (Auto) (13.4-35.0) % [place] % (Auto) (0.0-7.3) % Lymph # (1.2-5.4) K/mm3 Seg Neutrophils % (40.0-70.0) % PT (12.2-14.9) Sec. INR (0.87-1.13) Potassium 3.2 L (3.6-5.0) mmol/L Glucose 130 H (75-100) mg/dL POC Glucose 121 H 125 H (70-105) Lactic Acid (0.7-2.0) mmol/L Total Creatine Kinase (55-170) units/L Albumin (3.9-5) g/dL - Imaging and Cardiology Chest x-ray: image reviewed CT scan - abdomen: image reviewed Assessment and Plan Cultures: 11/19/18 BCx - NGTD 11/19/18 stool Cx - no WBCs, NGTD A/P: 68 yo M PMHx HTN, DM2, Afib, DVT, CHF, gout, COPD, BPH admitted with recurrent diarrhea. 1. Diarrhea - agree this could be to C diff. Recommend enteric precautions (wash hands with soap and water on leaving room) until proven otherwise. Re commend changing metronidazole to PO vancomycin as that is now first line for C diff. Follow up PCR. I don't believe his long-term diarrhea is necessarily due to infection though as it has been going on for years. 2. DM2 3. HTN 4. Afib 5. CHF 6. Gout Recs: - stop levofloxacin - stop metronidazole - start PO vancomycin 125mg PO Q6h. Duration is 10 days assuming proven through PCR. - f/u C diff PCR Johanna Saldivar MD [facility] C: [phone] O: [phone] F: [phone]
[2018-11-20] MEDS: VANCOMYCIN PO PO SCH (18:17)
[2018-11-20] MEDS: LANTUS SUB-Q SCH (21:53)
[2018-11-20] MEDS: ELIQUIS PO SCH (21:53)
[2018-11-20] MEDS: LYRICA PO SCH (21:53)
[2018-11-20] MEDS: LOPRESSOR PO SCH (21:54)
[2018-11-20] MEDS: COREG PO SCH (21:54)
[2018-11-20] MEDS ORDERED: NON-FORMULARY (Pregabalin [Lyrica] 50 MG) PO SCH (22:00)
[2018-11-21] MEDS: VANCOMYCIN PO PO SCH ×4 (00:05→18:40)
[2018-11-21 07:11] LABS: BUN/Creatinine Ratio 14; Blood Urea Nitrogen 18 mg/dL (9-20); Hemolysis Index 0
--- NOTE | 2018-11-21 08:59 | Progress Note ---
Assessment and Plan Cultures: 11/19/18 BCx - NGTD 11/19/18 stool Cx - no WBCs, NGTD A/P: 68 yo M PMHx HTN, DM2, Afib, DVT, CHF, gout, COPD, BPH admitted with recurrent diarrhea. 1. Diarrhea - agree this could be C diff. Recommend enteric precautions (wash hands with soap and water on leaving room) until proven otherwise. Recommend changing metronidazole to PO vancomycin as that is now first line for C diff. Follow up PCR. I don't believe his long-term diarrhea is necessarily due to infection though as it has been going on for years. 2. DM2 3. HTN 4. Afib 5. CHF 6. Gout Recs: - Continue PO vancomycin 125mg PO Q6h. Duration is 10 days assuming proven through PCR, D2 - C diff PCR ordered not collected Margarita Gary NP [facility] M: [id number] O:[phone] Subjective Date of service: 11/21/18 Interval history: Patient seen and examined. Sitting up in bed reports continued abdominal tenderness. Low grade fever. Objective - Exam Narrative Exam: Constitutional: Awake. Alert. mild distress reported Head, Ears, Nose: Normocephalic, atraumatic. External ears, nose normal Eyes: Conjunctivae/corneas clear. No icterus. No ptosis. Neck: Supple, no meningeal signs Oral: fair dentition, moist mucous membranes Cardiovascular: S1, S2 normal. Normal rhythm Respiratory: Good air entry, clear to auscultation bilaterally GI: Soft, butch-umbilical tenderness; bowel sounds normal. No peritoneal signs Musculoskeletal: No pedal edema, positive R knee edema, tenderness Skin: No rash or abscess Hem/Lymphatic: No palpable cervical or supraclavicular nodes. No lymphangitis Psych: no agitation Neurological: Moves all extremities, no focal defects - Constitutional Vitals: Vital Signs Temp Pulse Resp BP Pulse Ox 99.4 F 98 H 20 110/63 98 11/21/18 07:13 11/21/18 08:00 11/21/18 08:00 11/21/18 07:13 11/21/18 08:00 Temperature -Last 24 Hours Temperature 99.4 F Temperature 100.1 F Temperature 99.3 F Temperature 97.5 F - Labs CBC & Chem 7: 11/20/18 02:54 11/21/18 05:51 Labs: Abnormal lab results 11/20/18 11/20/18 11/20/18 Range/Units 11:46 16:58 21:42 Potassium (3.6-5.0) mmol/L Glucose (75-100) mg/dL POC Glucose 125 H 143 H 129 H (70-105) 11/21/18 11/21/18 Range/Units 05:51 07:19 Potassium 3.2 L (3.6-5.0) mmol/L Glucose 117 H (75-100) mg/dL POC Glucose 109 H (70-105)
[2018-11-21] MEDS: COREG PO SCH ×2 (09:37→22:51)
[2018-11-21] MEDS: COLCHICINE PO SCH (09:37)
[2018-11-21] MEDS: ELIQUIS PO SCH ×2 (09:38→22:50)
[2018-11-21] MEDS: FLOMAX PO SCH (09:38)
[2018-11-21] MEDS: LYRICA PO SCH ×2 (09:38→22:50)
[2018-11-21] MEDS: ZESTRIL PO SCH (09:39)
[2018-11-21] MEDS: PROTONIX PO SCH (09:41)
[2018-11-21] MEDS: DELTASONE PO SCH (09:41)
[2018-11-21] MEDS: LOPRESSOR PO SCH ×2 (09:41→22:52)
[2018-11-21] MEDS: SODIUM CHLORIDE FLUSH SYRINGE 10 ML IV SCH ×2 (09:43→22:52)
[2018-11-21] MEDS ORDERED: MAGNESIUM SULFATE 1 GM in NACL 0.9% 50 ML IV ONE (11:03)
[2018-11-21] MEDS ORDERED: K-DUR PO ONE (11:03)
[2018-11-21] MEDS: KCL 10MEQ/100ML 10 MEQ/100 ML BAG IV SCH ×4 (13:03→17:41)
--- NOTE | 2018-11-21 15:46 | Progress Note ---
Assessment and Plan Assessment and plan: Patient is a 68 yo man with a history of IDDM with peripheral neuropathy, Afib, PE, DVT on Eliquis GIB on Xarelto, AOCD, CHF EF 25%, hypertension, Gout, COPD/former smoker quit 10 years ago, GERD and BPH who presents to [facility] with complaints of worsening diarrhea. The diarrhea is nontraumatic, and present since 2017 but worse in the last week. He reports multiple episodes of nonbloody, nonbilious diarrhea, no black or tarry stools, and reports to many bowel movements to count today. He reported abdominal pain. Patient on admission was placed on isolation precautions since he has had multiple recent hospitalizations and concerning for C.DIFF. Patient was started on Patient received 10 mg of diltiazem, followed by 5 mg, heart rate now in the mid 90s in the ED. CTA/P: IMPRESSION: 1. Bilateral nephrolithiasis without hydronephrosis. 2. Cholelithiasis. 3. No acute inflammatory changes are seen in the abdomen or pelvis. Acute on chronic diarrhea Sepsis possible GI source Acute gout hypertension diabetes mellitus Bilaeral Nephrolithiasis Cholelithiasis A. fib WITH RVR PE, DVT Systolic CHF, stable COPD BPH Plan: Supportive care Await Check stool for culture, C. difficile ID input noted - Continue PO vancomycin 125mg PO Q6h. Duration is 10 days assuming proven through PCR, D2 - C diff PCR ordered not collected Fingersticks initiate insulin sliding-scale Resume home meds PT/OT eval noted IV morphine, colchicine, consult otho Continue appropriate outpatient medications DVT prophylaxis Plan discussed with the patient. History Interval history: Patient seen and examined, resting comfortable. reports improvement in diarrhea, no further fever. Hospitalist Physical - Physical exam Narrative exam: General Apperance: The patient is lying in bed no acute distress HEENT: Normocephalic, Atraumatic. Pupils equally round and reactive to light, extraocular movement intact, and no sclericterus or JVD or thyromegaly or nodule. Neck supple, no carotid bruit, mucous membranes moist, no exudate or erythema Heart: S1-S2, irregular is rhythm Lungs: Clear to auscultation bilaterally, breathing comfortable Abdomen: Distended but large panus, Positive bowel sounds, soft, nontender, no organomegaly Extremities: trace edema cyanosis clubbing, knee swelling Skin: No rash, nodule, warm and dry Neuro: CN 2 -12 intact, motor/sensory intact, speech is fluent, ambulates with walker - Constitutional Vitals: Temp Pulse Resp BP Pulse Ox 97.7 F 91 H 18 112/78 98 11/21/18 13:56 11/21/18 13:56 11/21/18 13:56 11/21/18 13:56 11/21/18 13:56 Results - Labs CBC & Chem 7: 11/20/18 02:54 11/21/18 05:51 Labs: Laboratory Last Values WBC 8.4 K/mm3 (4.5-11.0) 11/20/18 02:54 RBC 4.24 M/mm3 (3.65-5.03) 11/20/18 02:54 Hgb 9.8 gm/dl (11.8-15.2) L 11/20/18 02:54 Hct 30.8 % (35.5-45.6) L 11/20/18 02:54 MCV 73 fl (84-94) L 11/20/18 02:54 MCH 23 pg (28-32) L 11/20/18 02:54 MCHC 32 % (32-34) 11/20/18 02:54 RDW 21.4 % (13.2-15.2) H 11/20/18 02:54 Plt Count 124 K/mm3 (140-440) L 11/20/18 02:54 Lymph % (Auto) 13.3 % (13.4-35.0) L 11/20/18 02:54 [place] % (Auto) 9.5 % (0.0-7.3) H 11/20/18 02:54 Eos % (Auto) 0.0 % (0.0-4.3) 11/20/18 02:54 Baso % (Auto) 0.4 % (0.0-1.8) 11/20/18 02:54 Lymph # 1.1 K/mm3 (1.2-5.4) L 11/20/18 02:54 [place] # 0.8 K/mm3 (0.0-0.8) 11/20/18 02:54 Eos # 0.0 K/mm3 (0.0-0.4) 11/20/18 02:54 Baso # 0.0 K/mm3 (0.0-0.1) 11/20/18 02:54 Seg Neutrophils % 76.8 % (40.0-70.0) H 11/20/18 02:54 Seg Neutrophils # 6.4 K/mm3 (1.8-7.7) 11/20/18 02:54 PT 21.8 Sec. (12.2-14.9) H 11/19/18 20:20 INR 1.95 (0.87-1.13) H 11/19/18 20:20 VBG pH 7.379 (7.320-7.420) 11/19/18 20:20 Sodium 141 mmol/L (137-145) 11/21/18 05:51 Potassium 3.2 mmol/L (3.6-5.0) L 11/21/18 05:51 Chloride 106.6 mmol/L (98-107) 11/21/18 05:51 Carbon Dioxide 24 mmol/L (22-30) 11/21/18 05:51 14 mmol/L 11/21/18 05:51 BUN 18 mg/dL (9-20) 11/21/18 05:51 1.3 mg/dL (0.8-1.5) 11/21/18 05:51 Estimated GFR > 60 ml/min 11/21/18 05:51 14 % 11/21/18 05:51 Glucose 117 mg/dL (75-100) H 11/21/18 05:51 POC Glucose 165 (70-105) H 11/21/18 11:41 Lactic Acid 1.00 mmol/L (0.7-2.0) 11/19/18 23:02 Calcium 9.0 mg/dL (8.4-10.2) 11/21/18 05:51 Magnesium 1.90 mg/dL (1.7-2.3) 11/19/18 20:20 1.20 mg/dL (0.1-1.2) 11/19/18 20:20 AST 15 units/L (5-40) 11/19/18 20:20 ALT 9 units/L (7-56) 11/19/18 20:20 73 units/L (35-129) 11/19/18 20:20 21 units/L (55-170) L 11/19/18 20:20 8.0 g/dL (6.3-8.2) 11/19/18 20:20 3.4 g/dL (3.9-5) L 11/19/18 20:20 0.7 % 11/19/18 20:20 Yellow (Yellow) 11/20/18 15:30 Hazy (Clear) 11/20/18 15:30 6.0 (5.0-7.0) 11/20/18 15:30 Ur Specific [place] 1.018 (1.003-1.030) 11/20/18 15:30 30 mg/dl mg/dL (Negative) 11/20/18 15:30 Neg mg/dL (Negative) 11/20/18 15:30 Neg mg/dL (Negative) 11/20/18 15:30 Sm (Negative) 11/20/18 15:30 Neg (Negative) 11/20/18 15:30 Neg (Negative) 11/20/18 15:30 2.0 mg/dL (<2.0) 11/20/18 15:30 Ur Leukocyte Esterase Tr (Negative) 11/20/18 15:30 2.0 /HPF (0.0-6.0) 11/20/18 15:30 13.0 /HPF (0.0-6.0) 11/20/18 15:30 1+ /HPF (Negative) 11/20/18 15:30 Few /HPF 11/20/18 15:30 Active Medications - Current Medications Current Medications: Generic Name Dose Route Start Last Admin Trade Name Freq PRN Reason Stop Dose Admin Acetaminophen 650 mg 11/20/18 01:43 Tylenol PO Q4H PRN Pain MILD(1-3)/Fever >100.5/LOPEZ Apixaban 5 mg 11/20/18 22:00 11/21/18 09:38 Eliquis PO 5 mg BID JERRY Administration Protocol Carvedilol 25 mg 11/20/18 22:00 11/21/18 09:37 Coreg PO 25 mg BID JERRY Administration Colchicine 0.6 mg 11/21/18 10:00 11/21/18 09:37 Colchicine PO 0.6 mg QDAY JERRY Administration Potassium Chloride 10 meq in 100 mls @ 100 mls/hr 11/21/18 12:00 11/21/18 15:00 Kcl 10meq/100ml IV 11/21/18 15:59 100 mls/hr Q1H JERRY Administration Insulin Glargine 10 units 11/20/18 22:00 11/20/18 21:53 Lantus SUB-Q 10 units QHS JERRY Administration Lisinopril 2.5 mg 11/21/18 10:00 11/21/18 09:39 Zestril PO 2.5 mg QDAY JERRY Administration Meclizine HCl 25 mg 11/20/18 15:37 Antivert PO Q8H PRN Vertigo Metoprolol Tartrate 25 mg 11/20/18 22:00 11/21/18 09:41 Lopressor PO 25 mg BID JERRY Administration Morphine Sulfate 2 mg 11/20/18 05:36 Morphine IV Q4H PRN Pain, Moderate (4-6) Ondansetron HCl 4 mg 11/20/18 01:43 Zofran IV Q8H PRN Nausea And Vomiting Oxycodone/Acetaminophen 1 tab 11/20/18 15:37 Percocet 5/325 PO TID PRN Pain , Severe (7-10) Pantoprazole Sodium 20 mg 11/21/18 10:00 11/21/18 09:41 Protonix PO 20 mg QDAY JERRY Administration Prednisone 20 mg 11/21/18 10:00 11/21/18 09:41 Deltasone PO 20 mg QDAY JERRY Administration Pregabalin 50 mg 11/20/18 22:00 11/21/18 09:38 Lyrica PO 50 mg BID JERRY Administration Sodium Chloride 10 ml 11/20/18 10:00 11/21/18 09:43 Sodium Chloride Flush Syringe 10 Ml IV 10 ml BID JERRY Administration Sodium Chloride 10 ml 11/20/18 01:43 Sodium Chloride Flush Syringe 10 Ml IV PRN PRN LINE FLUSH Tamsulosin HCl 0.4 mg 11/21/18 10:00 11/21/18 09:38 Flomax PO 0.4 mg QDAY JERRY Administration Vancomycin HCl 125 mg 11/20/18 18:00 11/21/18 13:04 Vancomycin Po PO 125 mg Q6HR JERRY Administration Nutrition/Malnutrition Assess - Dietary Evaluation Nutrition/Malnutrition Findings: Nutrition Notes Start: 11/20/18 18:21 Freq: Status: Active Protocol: Document 11/20/18 18:21 RM (Rec: 11/20/18 18:25 RM [id number]) Nutrition Notes Need for Assessment generated from: fish grader Initial or Follow up Assessment Current Diagnosis COPD,Diabetes,Hypertension, Heart Failure Other Pertinent Diagnosis Gout Current Diet Regular Labs/Tests Reviewed Pertinent Medications Reviewed Height 6 ft 4 in Weight 106.6 kg [place] Body Weight (kg) 91.81 BMI 28.5 Subjective/Other Information Screened for skin risk. [place] 14 points. Pt stated that his appetite is okay and that he ate 1/3 of his breakfast. Percent of energy/protein needs met: 34%/27% Burn Absent Trauma Absent #1 Nutrition Diagnosis Inadequate oral intake Etiology decreased appetite As Evidenced by Signs and Symptoms pt statement that he ate 1/3 of his breakfast Is patient on ventilator? No Is Patient Ambulatory and/or Out of Bed No REE-([facility]-confined to bed) [phone] Calculation Used for Recommendations [facility] Additional Notes Protein Needs: 107-128g (1-1. 2g/kg) Fluid Needs: 1 ml/kcal Nutrition Intervention Change Diet Order: Cardiac/Consistent CHO Add Supplement/Snack (indicate name/kcal Glucerna strawberry, butter /protein ) pecan 1 daily Provides kCal: 240 Provides Protein (gm) 10 Goal #1 Meet at least 75% of calorie and protein needs via PO and ONS intakes Anticipated Discharge Needs: Cardiac/Consistent CHO diet Follow-Up By: 11/22/18 Additional Comments Follow for PO and ONS intakes
[2018-11-21] MEDS ORDERED: DEPO-Medrol INTRA-ARTI ONE (19:43)
--- NOTE | 2018-11-21 19:43 | Consultation ---
History of Present Illness - [facility] Consult date: 11/21/18 Consult reason: joint pain History of present illness: 68-year-old male who comes in complaining of right knee pain and swelling patient states he has a history of gout and has had multiple episodes of pain and swelling at the joint hands and elbow over the years but currently patient denies any history of trauma status pain is located primarily at the knee joint and worse with weightbearing Past History Past Medical History: atrial fib, COPD, DVT, hypertension, hyperlipidemia Past Surgical History: No surgical history Social history: single, Lives alone Family history: diabetes, hypertension Medications and Allergies Allergies Allergy/AdvReac Type Severity Reaction Status Date / Time No Known Allergies Allergy Verified 05/05/18 23:54 Home Medications Medication Instructions Recorded Confirmed Last Taken Type Tamsulosin [Flomax] 0.4 mg PO QDAY 07/30/18 11/19/18 Unknown History Colchicine 0.6 mg PO QDAY #30 capsule 09/28/18 11/19/18 Unknown Rx predniSONE [Deltasone] 20 mg PO QDAY #7 tablet 09/28/18 11/19/18 Unknown Rx Apixaban [Eliquis] 5 mg PO BID #60 tablet 11/04/18 11/19/18 Unknown Rx Carvedilol [Coreg] 25 mg PO BID #60 tablet 11/04/18 11/19/18 Unknown Rx Insulin Aspart [NovoLOG 100 5 units SUB-Q TIDAC #90 11/04/18 11/19/18 Unknown Rx UNITS/ML VIAL] Insulin Glargine [Lantus VIAL] 10 units SUB-Q QHS #30 11/04/18 11/19/18 Unknown Rx Ipratropium/Albuterol Sulfate 1 puff IH BID #1 11/04/18 11/19/18 Unknown Rx [Combivent Respimat] Lisinopril [Zestril TAB] 2.5 mg PO QDAY tablet 11/04/18 11/19/18 Unknown Rx Meclizine [Antivert] 25 mg PO Q8H PRN #30 tablet 11/04/18 11/19/18 Unknown Rx Pantoprazole [Protonix TAB] 20 mg PO QDAY #20 tablet. 11/04/18 11/19/18 Unknown Rx Pregabalin [Lyrica] 50 mg PO BID #60 11/04/18 11/19/18 Unknown Rx oxyCODONE /ACETAMINOPHEN [Percocet 1 tab PO TID PRN #6 tablet 11/04/18 11/19/18 Unknown Rx 5/325 mg] Metoprolol [Lopressor TAB] 25 mg PO BID 11/19/18 11/19/18 Unknown History Active Meds: Active Medications Acetaminophen (Tylenol) 650 mg PO Q4H PRN PRN Reason: Pain MILD(1-3)/Fever >100.5/LOPEZ Apixaban (Eliquis) 5 mg PO BID [facility]; Protocol Last Admin: 11/21/18 09:38 Dose: 5 mg Documented by: Carvedilol (Coreg) 25 mg PO BID [facility] Last Admin: 11/21/18 09:37 Dose: 25 mg Documented by: Colchicine (Colchicine) 0.6 mg PO QDAY [facility] Last Admin: 11/21/18 09:37 Dose: 0.6 mg Documented by: Insulin Glargine (Lantus) 10 units SUB-Q QHS [facility] Last Admin: 11/20/18 21:53 Dose: 10 units Documented by: Lisinopril (Zestril) 2.5 mg PO QDAY [facility] Last Admin: 11/21/18 09:39 Dose: 2.5 mg Documented by: Meclizine HCl (Antivert) 25 mg PO Q8H PRN PRN Reason: Vertigo Metoprolol Tartrate (Lopressor) 25 mg PO BID [facility] Last Admin: 11/21/18 09:41 Dose: 25 mg Documented by: Morphine Sulfate (Morphine) 2 mg IV Q4H PRN PRN Reason: Pain, Moderate (4-6) Ondansetron HCl (Zofran) 4 mg IV Q8H PRN PRN Reason: Nausea And Vomiting Oxycodone/Acetaminophen (Percocet 5/325) 1 tab PO TID PRN PRN Reason: Pain , Severe (7-10) Pantoprazole Sodium (Protonix) 20 mg PO QDAY [facility] Last Admin: 11/21/18 09:41 Dose: 20 mg Documented by: Prednisone (Deltasone) 20 mg PO QDAY [facility] Last Admin: 11/21/18 09:41 Dose: 20 mg Documented by: Pregabalin (Lyrica) 50 mg PO BID [facility] Last Admin: 11/21/18 09:38 Dose: 50 mg Documented by: Sodium Chloride (Sodium Chloride Flush Syringe 10 Ml) 10 ml IV BID [facility] Last Admin: 11/21/18 09:43 Dose: 10 ml Documented by: Sodium Chloride (Sodium Chloride Flush Syringe 10 Ml) 10 ml IV PRN PRN PRN Reason: LINE FLUSH Tamsulosin HCl (Flomax) 0.4 mg PO QDAY [facility] Last Admin: 11/21/18 09:38 Dose: 0.4 mg Documented by: Vancomycin HCl (Vancomycin Po) 125 mg PO Q6HR [facility] Last Admin: 11/21/18 18:40 Dose: 125 mg Documented by: Physical Examination - Physical exam Narrative exam: Significant musculoskeletal findings released of the right lower extremity at the right knee patient is noted to have 1-2+ effusion there were no redness or erythema slight warmth was noted on palpation patient had good active and passive range of motion Plain x-rays of the right knee were reviewed by me and showed no obvious bony abnormality patient has mild degenerative changes Assessment and Plan Right knee pain and swelling most likely gouty in nature Recommendations Uric acid serum levels will be drawn Discussed treatment options with the patient will try Depo-Medrol injection
[2018-11-21] MEDS ORDERED: XYLOCAINE 1% MPF 5 mL INFILTRATI ONE (19:44)
[2018-11-21] MEDS: LANTUS SUB-Q SCH (22:51)
[2018-11-22] MEDS: VANCOMYCIN PO PO SCH ×3 (00:10→16:32)
--- NOTE | 2018-11-22 09:09 | Progress Note ---
Assessment and Plan Cultures: 11/19/18 BCx - NGTD 11/19/18 stool Cx - no WBCs, NGTD A/P: 68 yo M PMHx HTN, DM2, Afib, DVT, CHF, gout, COPD, BPH admitted with recurrent diarrhea. 1. Diarrhea - Improved. Agree this could be C diff. Recommend enteric precautions (wash hands with soap and water on leaving room) until proven otherwise. Recommend changing metronidazole to PO vancomycin as that is now first line for C diff. Follow up PCR. I don't believe his long-term diarrhea is necessarily due to infection though as it has been going on for years. 2. DM2 3. HTN 4. Afib 5. CHF 6. Gout Recs: - Continue PO vancomycin 125mg PO Q6h. Duration is 10 days assuming proven through PCR, D3 - Anticipate discharge on PO Vancomycin 125mg PO every 6 hours ending 11-29-18 - follow-up C-diff PCR Dr. Saldivar will round on Sunday. Dr. Burgos is taking call this weekend , please call for questions. Margarita Gary NP [facility] M: [phone] O:[phone] Subjective Date of service: 11/22/18 Interval history: Patient seen and examined. Sitting up in bed reports improved abdominal pain. Right knee tenderness. No fevers. Objective - Exam Narrative Exam: Constitutional: Awake. Alert. mild distress reported Head, Ears, Nose: Normocephalic, atraumatic. External ears, nose normal Eyes: Conjunctivae/corneas clear. No icterus. No ptosis. Neck: Supple, no meningeal signs Oral: fair dentition, moist mucous membranes Cardiovascular: S1, S2 normal. Normal rhythm Respiratory: Good air entry, clear to auscultation bilaterally GI: Soft, butch-umbilical tenderness; bowel sounds normal. No peritoneal signs Musculoskeletal: No pedal edema, positive R knee edema, tenderness Skin: No rash or abscess Hem/Lymphatic: No palpable cervical or supraclavicular nodes. No lymphangitis Psych: no agitation Neurological: Moves all extremities, no focal defects - Constitutional Vitals: Vital Signs Temp Pulse Resp BP Pulse Ox 97.9 F 107 H 20 111/74 100 11/22/18 07:37 11/22/18 08:28 11/22/18 08:28 11/22/18 07:37 11/22/18 08:28 Temperature -Last 24 Hours Temperature 97.9 F Temperature 97.4 F Temperature 97.9 F Temperature 97.7 F - Labs CBC & Chem 7: 11/20/18 02:54 11/21/18 05:51 Labs: Abnormal lab results 11/21/18 11/21/18 11/21/18 Range/Units 11:41 16:49 21:48 POC Glucose 165 H 203 H 167 H (70-105) Uric Acid (3.5-7.6) mg/dL 11/21/18 11/22/18 Range/Units Unknown 07:43 POC Glucose 152 H (70-105) Uric Acid 8.9 H (3.5-7.6) mg/dL
[2018-11-22] MEDS: DELTASONE PO SCH (09:31)
[2018-11-22] MEDS: COLCHICINE PO SCH (09:31)
[2018-11-22] MEDS: FLOMAX PO SCH (09:31)
[2018-11-22] MEDS: LYRICA PO SCH (09:31)
[2018-11-22] MEDS: LOPRESSOR PO SCH (09:31)
[2018-11-22] MEDS: COREG PO SCH (09:32)
[2018-11-22] MEDS: ELIQUIS PO SCH (09:32)
[2018-11-22] MEDS: ZESTRIL PO SCH (09:33)
[2018-11-22] MEDS: PROTONIX PO SCH (09:33)
[2018-11-22] MEDS: SODIUM CHLORIDE FLUSH SYRINGE 10 ML IV SCH (09:35)
--- NOTE | 2018-11-22 11:10 | Discharge Summary ---
Providers - Providers Date of Admission: 11/19/18 23:56 Attending physician: SAVANNAH ZELAYA MD 11/20/18 03:31 Physical Therapy Evaluation and Treat [CONS] Routine Comment: Reason For Exam: weakness Mode of Transport?: Wheelchair 11/20/18 03:32 Occupational Therapy Evaluate and Treat [CONS] Routine Comment: Reason For Exam: weakness 11/20/18 05:37 Consult to Physician [CONS] Routine Comment: called office/ nathalia Consulting Provider: TRENT WALL Physician Instructions: Reason For Exam: KNEE PAIN, SWELLING 11/20/18 15:32 Consult to Physician [CONS] Routine Comment: dr. rivera seen patient/ nathalia Consulting Provider: ADÁN RIVERA Physician Instructions: Reason For Exam: SEPSIS Primary care physician: CESAR ALVAREZ Hospitalization Reason for admission: diarrhea Condition: Stable Hospital course: Patient is a 68 yo man with a history of IDDM with peripheral neuropathy, Afib, PE, DVT on Eliquis GIB on Xarelto, AOCD, CHF EF 25%, hypertension, Gout, COPD/former smoker quit 10 years ago, GERD and BPH who presents to [facility] with complaints of worsening diarrhea. The diarrhea is nontraumatic, and present since 2017 but worse in the last week. He reports multiple episodes of nonbloody, nonbilious diarrhea, no black or tarry stools, and reports to many bowel movements to count today. He reported abdominal pain. Patient on admission was placed on isolation precautions since he has had multiple recent hospitalizations and concerning for C.DIFF. Patient was started on Patient received 10 mg of diltiazem, followed by 5 mg, heart rate now in the mid 90s in the ED. Patient was treated with ID assistance, on - Continue PO vancomycin 125mg PO Q6h. Duration is 10 days assuming proven through PCR, D2- C diff PCR ordered and was negative. Imodium was ordered for the patient He is stable for discharge he will follow with Ortho outpatient and also endocrinology to manage CTA/P: IMPRESSION: 1. Bilateral nephrolithiasis without hydronephrosis. 2. Cholelithiasis. 3. No acute inflammatory changes are seen in the abdomen or pelvis. Acute on chronic diarrhea Sepsis possible GI source Acute gout hypertension diabetes mellitus Bilaeral Nephrolithiasis Cholelithiasis A. fib WITH RVR PE, DVT Systolic CHF, stable COPD BPH Disposition: [id number]/TX-06 HOME [facility] Time spent for discharge: 35 mins Core Measure Documentation - Palliative Care Palliative Care/ Comfort Measures: Not Applicable - Core Measures Any of the following diagnoses?: none Exam - Physical Exam Narrative exam: General Apperance: The patient is lying in bed no acute distress HEENT: Normocephalic, Atraumatic. Pupils equally round and reactive to light, extraocular movement intact, and no sclericterus or JVD or thyromegaly or nodule. Neck supple, no carotid bruit, mucous membranes moist, no exudate or nemesio thema Heart: S1-S2, irregular is rhythm Lungs: Clear to auscultation bilaterally, breathing comfortable Abdomen: Distended but large panus, Positive bowel sounds, soft, nontender, no organomegaly Extremities: trace edema cyanosis clubbing, knee swelling Skin: No rash, nodule, warm and dry Neuro: CN 2 -12 intact, motor/sensory intact, speech is fluent, ambulates with walker - Constitutional Vitals: Temp Pulse Resp BP Pulse Ox 97.9 F 107 H 20 111/74 100 11/22/18 07:37 11/22/18 10:00 11/22/18 10:00 11/22/18 09:33 11/22/18 10:00 Plan Activity: advance as tolerated, fall precautions Diet: low fat Special Instructions: record daily BP diary Follow up with: CESAR ALVAREZ MD [Primary Care Provider] - 3-5 Days TRENT WALL MD [Staff Physician] - 7 Days ADÁN RIVERA MD [Staff Physician] - 7 Days Prescriptions: Colchicine 0.6 mg PO QDAY #30 capsule Loperamide [Imodium] 2 mg PO Q2HR PRN #30 capsule PRN Reason: Diarrhea Vancomycin 125 mg PO Q6HR 7 Days oralsyr
[2018-11-22] MEDS ORDERED: SOLU-Medrol IV ONE (12:00)
[2018-11-22 14:05] VITALS: BP 112/61
== END 2018-11-22 17:08 | disposition home health service (06) | DRG 872 ==
LOC: ED 19:34 → 2B-ACE 23:56
PROVIDERS: ADMIT Internal Medicine; ATTEND Internal Medicine
DX: A41.9 Sepsis, unspecified organism (principal); I50.22 Chronic systolic (congestive) heart failure; M10.9 Gout, unspecified; E11.42 Type 2 diabetes mellitus with diabetic polyneuropathy; I48.91 Unspecified atrial fibrillation; K21.9 Gastro-esophageal reflux disease without esophagitis; J44.9 Chronic obstructive pulmonary disease, unspecified; I11.0 Hypertensive heart disease with heart failure; K52.9 Noninfective gastroenteritis and colitis, unspecified; N40.0 Benign prostatic hyperplasia without lower urinary tract symptoms; K80.20 Calculus of gallbladder without cholecystitis without obstruction; N20.0 Calculus of kidney; E78.5 Hyperlipidemia, unspecified; Z86.711 Personal history of pulmonary embolism; Z86.718 Personal history of other venous thrombosis and embolism; Z79.4 Long term (current) use of insulin; Z87.891 Personal history of nicotine dependence; Z79.01 Long term (current) use of anticoagulants
CPT/HCPCS: 36415; 71045; 74176; 80048; 80053; 81001; 82140; 82550; 82805; 82962; 83735; 84550; 85007; 85025; 85610; 87040; 87045; 87086; 87493; 93005; 93010; 94760; G0378; J1040; J1815; J1956; J2920; J3370; J3475; J3480; J7040; J7512

== ENCOUNTER 2018-12-06 20:50 | Emergency (ER) | payer MEDICARE ==
--- NOTE | 2018-12-06 21:26 | Emergency Department Report ---
ED Palpitations HPI - General Chief Complaint: Arrhythmia/Palpitations Stated Complaint: FLUTTERING HEART BEAT Time Seen by Provider: 12/06/18 21:04 Source: patient, EMS Mode of arrival: Stretcher Limitations: Physical Limitation - History of Present Illness Initial Comments: Mr. Robison is a 68-year-old male with history of atrial fibrillation, COPD, C HF, hypertension, dyslipidemia, PE, DVT, gout, anemia, GI bleed, diabetes mellitus, peripheral neuropathy, BPH who presents with palpitations. He took 500 mg of metoprolol due to rapid heart beat. He denies chest pain. He has lightheadedness. He is normally followed at [facility]. Recently discharged from this hospital for diarrhea and possible sepsis. Mr. Robison took 5 tablets of metoprolol between the times of 6 AM to 2 PM to address the rapid heartbeat. He denies chest pain. MD Complaint: rapid heart beat, "heart racing", palpitations -: Gradual, This morning Context: occured during rest Arrythmia History: atrial fibrillation, on anti-coagulants Associated Symptoms: other (light headedness) - Related Data Home Medications Medication Instructions Recorded Confirmed Last Taken Tamsulosin [Flomax] 0.4 mg PO QDAY 07/30/18 11/19/18 Unknown Metoprolol [Lopressor TAB] 25 mg PO BID 11/19/18 11/19/18 Unknown Previous Rx's Medication Instructions Recorded Last Taken Type predniSONE [Deltasone] 20 mg PO QDAY #7 tablet 09/28/18 Unknown Rx Apixaban [Eliquis] 5 mg PO BID #60 tablet 11/04/18 Unknown Rx Carvedilol [Coreg] 25 mg PO BID #60 tablet 11/04/18 Unknown Rx Insulin Aspart [NovoLOG 100 5 units SUB-Q TIDAC #90 11/04/18 Unknown Rx UNITS/ML VIAL] Insulin Glargine [Lantus VIAL] 10 units SUB-Q QHS #30 11/04/18 Unknown Rx Ipratropium/Albuterol Sulfate 1 puff IH BID #1 11/04/18 Unknown Rx [Combivent Respimat] Lisinopril [Zestril TAB] 2.5 mg PO QDAY tablet 11/04/18 Unknown Rx Meclizine [Antivert] 25 mg PO Q8H PRN #30 tablet 11/04/18 Unknown Rx Pantoprazole [Protonix TAB] 20 mg PO QDAY #20 tablet. 11/04/18 Unknown Rx Pregabalin [Lyrica] 50 mg PO BID #60 11/04/18 Unknown Rx oxyCODONE /ACETAMINOPHEN [Percocet 1 tab PO TID PRN #6 tablet 11/04/18 Unknown Rx 5/325 mg] Colchicine 0.6 mg PO QDAY #30 capsule 11/22/18 Unknown Rx Loperamide [Imodium] 2 mg PO Q2HR PRN #30 capsule 11/22/18 Unknown Rx Vancomycin 125 mg PO Q6HR 7 Days oralsyr 11/22/18 Unknown Rx Allergies Allergy/AdvReac Type Severity Reaction Status Date / Time No Known Allergies Allergy Verified 05/05/18 23:54 ED Review of Systems ROS: Stated complaint: FLUTTERING HEART BEAT Other details as noted in HPI Comment: All other systems reviewed and negative Constitutional: denies: fever, malaise Respiratory: denies: shortness of breath Cardiovascular: palpitations. denies: chest pain ED Past Medical Hx - Past Medical History Previous Medical History?: Yes Hx Hypertension: Yes Hx Congestive Heart Failure: Yes Hx Diabetes: Yes Hx Deep Vein Thrombosis: Yes (both legs) Hx Pulmonary Embolism: Yes (william lungs) Hx Kidney Stones: Yes Hx Asthma: No Hx COPD: Yes Additional medical history: neuropathy. a-fib - Surgical History Past Surgical History?: Yes Additional Surgical History: neck and back surgery 2011 - Social History Smoking Status: Former Smoker Substance Use Type: None Other Social History: Mr. Robison is a [place] . He is retired regional construction manager. He lives alone. - Medications Home Medications: Home Medications Medication Instructions Recorded Confirmed Last Taken Type Tamsulosin [Flomax] 0.4 mg PO QDAY 07/30/18 11/19/18 Unknown History predniSONE [Deltasone] 20 mg PO QDAY #7 tablet 09/28/18 11/19/18 Unknown Rx Apixaban [Eliquis] 5 mg PO BID #60 tablet 11/04/18 11/19/18 Unknown Rx Carvedilol [Coreg] 25 mg PO BID #60 tablet 11/04/18 11/19/18 Unknown Rx Insulin Aspart [NovoLOG 100 5 units SUB-Q TIDAC #90 11/04/18 11/19/18 Unknown Rx UNITS/ML VIAL] Insulin Glargine [Lantus VIAL] 10 units SUB-Q QHS #30 11/04/18 11/19/18 Unknown Rx Ipratropium/Albuterol Sulfate 1 puff IH BID #1 11/04/18 11/19/18 Unknown Rx [Combivent Respimat] Lisinopril [Zestril TAB] 2.5 mg PO QDAY tablet 11/04/18 11/19/18 Unknown Rx Meclizine [Antivert] 25 mg PO Q8H PRN #30 tablet 11/04/18 11/19/18 Unknown Rx Pantoprazole [Protonix TAB] 20 mg PO QDAY #20 tablet. 11/04/18 11/19/18 Unknown Rx Pregabalin [Lyrica] 50 mg PO BID #60 11/04/18 11/19/18 Unknown Rx oxyCODONE /ACETAMINOPHEN [Percocet 1 tab PO TID PRN #6 tablet 11/04/18 11/19/18 Unknown Rx 5/325 mg] Metoprolol [Lopressor TAB] 25 mg PO BID 11/19/18 11/19/18 Unknown History Colchicine 0.6 mg PO QDAY #30 capsule 11/22/18 Unknown Rx Loperamide [Imodium] 2 mg PO Q2HR PRN #30 capsule 11/22/18 Unknown Rx Vancomycin 125 mg PO Q6HR 7 Days oralsyr 11/22/18 Unknown Rx ED Physical Exam - General Limitations: Physical Limitation General appearance: alert, in no apparent distress, other (appears comfortable in no acute distress) - Head Head exam: Present: atraumatic, normocephalic - Eye Eye exam: Present: normal appearance - ENT ENT exam: Present: mucous membranes moist - Neck Neck exam: Present: normal inspection - Respiratory Respiratory exam: Present: normal lung sounds bilaterally. Absent: respiratory distress, wheezes, rales, rhonchi - Cardiovascular Cardiovascular Exam: Present: regular rate, irregular rhythm. Absent: systolic murmur, diastolic murmur, rubs, gallop - GI/Abdominal GI/Abdominal exam: Present: soft, normal bowel sounds. Absent: distended, tenderness, guarding, rebound - Rectal Rectal exam: Present: deferred - Extremities Exam Extremities exam: Present: normal inspection - Back Exam Back exam: Present: normal inspection - Neurological Exam Neurological exam: Present: alert, oriented X3 - Psychiatric Psychiatric exam: Present: normal affect, normal mood - Skin Skin exam: Present: warm, dry, intact, normal color. Absent: rash ED Course Vital Signs 12/06/18 12/06/18 12/06/18 20:55 21:12 21:15 Temperature 98.8 F Pulse Rate 82 87 76 Respiratory 20 11 L 11 L Rate Blood Pressure 138/65 136/94 Blood Pressure [Left] O2 Sat by Pulse 97 100 98 Oximetry 12/06/18 12/06/18 12/06/18 21:30 21:45 22:00 Temperature Pulse Rate 84 81 92 H Respiratory 18 26 H 21 Rate Blood Pressure 136/94 136/86 136/86 Blood Pressure [Left] O2 Sat by Pulse 99 100 100 Oximetry 12/06/18 12/06/18 12/06/18 22:15 22:30 22:45 Temperature Pulse Rate 83 83 79 Respiratory 25 H 20 21 Rate Blood Pressure 134/86 132/85 134/86 Blood Pressure [Left] O2 Sat by Pulse 100 98 Oximetry 12/06/18 12/06/18 12/06/18 22:51 23:00 23:05 Temperature 98 F Pulse Rate 82 83 Respiratory 18 12 14 Rate Blood Pressure 157/93 Blood Pressure 157/93 [Left] O2 Sat by Pulse 100 100 Oximetry ED Medical Decision Making - Lab Data Result diagrams: 12/06/18 21:23 12/06/18 21:23 - EKG Data 12/06/18 21:49 EKG obtained at 2133 Atrial fibrillation rate 80 beats a minute normal axis normal intervals no ST-T signs of ischemia - Radiology Data Radiology results: report reviewed ap chest: NAP mild cardiomegaly - Medical Decision Making Mr. Robison has palpitations which he self treated with a total of 500 mg of Metoprolol. Fortunately he does not have any adverse effects of the extra doses of medication. I advised him to take only 200 mg total per day. He will return to the ER for any concerns. Mild lightheadedness nonspecific. I do not see signs of infection cardiac insult or CVA. He is discharged home. Critical care attestation.: If time is entered above; I have spent that time in minutes in the direct care of this critically ill patient, excluding procedure time. ED Disposition Clinical Impression: Atrial fibrillation, Light headedness, Palpitations Disposition: DC-01 TO HOME OR SELFCARE Is pt being admited?: No Does the pt Need Aspirin: No Condition: Stable Instructions: Palpitations (ED), Atrial Fibrillation (ED)
--- NOTE | 2018-12-06 21:39 | XRay Report ---
CHEST 1 VIEW INDICATION / CLINICAL INFORMATION: Dysrhythmia. COMPARISON: 11/19/2018 FINDINGS: SUPPORT DEVICES: None. HEART / MEDIASTINUM: Cardiac silhouette remains mildly enlarged. LUNGS / PLEURA: No significant pulmonary or pleural abnormality. No pneumothorax. There is mild pulmo nary vascular congestion but no overt interstitial pulmonary edema. ADDITIONAL FINDINGS: No significant additional findings. IMPRESSION: 1. Mild cardiomegaly with mild pulmonary vascular congestion. Signer Name: Nydia Penn MD Signed: 12/06/2018 9:35 PM Workstation Name: [id number]
[2018-12-06 21:41] LABS: Basophils % (Auto) 1.1 % (0.0-1.8); Eosinophils # (Auto) 0.3 K/mm3 (0.0-0.4); Hematocrit 33.5 % (35.5-45.6); Hemoglobin 10.3 gm/dl (11.8-15.2); Lymphocytes # (Auto) 1.1 K/mm3 (1.2-5.4); Lymphocytes % (Auto) 33.7 % (13.4-35.0); Mean Corpuscular HGB Conc 31 % (32-34); Mean Corpuscular Volume 73 fl (84-94); Monocytes # (Auto) 0.4 K/mm3 (0.0-0.8); Monocytes % (Auto) 10.8 % (0.0-7.3); Platelet Count 240 K/mm3 (140-440); Red Blood Count 4.58 M/mm3 (3.65-5.03)
[2018-12-06 22:05] LABS: Red Cell Distribution Width 23.2 % (13.2-15.2)
[2018-12-06 22:07] LABS: Alanine Aminotransferase 9 units/L (7-56); Albumin 3.2 g/dL (3.9-5); BUN/Creatinine Ratio 7; Blood Urea Nitrogen 10 mg/dL (9-20); Calcium 9.1 mg/dL (8.4-10.2); Hemolysis Index 10
[2018-12-06] MEDS ORDERED: TYLENOL PO ONE (22:39)
[2018-12-07 00:37] VITALS: BP 138/88
== END 2018-12-07 00:20 | disposition home or self-care (01) ==
LOC: ED 20:50
DX: I48.91 Unspecified atrial fibrillation (principal); R00.2 Palpitations; R42 Dizziness and giddiness; I11.0 Hypertensive heart disease with heart failure; I50.9 Heart failure, unspecified; E11.9 Type 2 diabetes mellitus without complications; J44.9 Chronic obstructive pulmonary disease, unspecified; E11.40 Type 2 diabetes mellitus with diabetic neuropathy, unspecified; Z86.718 Personal history of other venous thrombosis and embolism; Z79.4 Long term (current) use of insulin; Z98.890 Other specified postprocedural states; Z87.891 Personal history of nicotine dependence; Z79.899 Other long term (current) drug therapy
CPT/HCPCS: 36415; 71045; 80053; 83735; 84100; 84484; 85025; 93005; 93010; 99284

== ENCOUNTER 2019-01-12 22:29 | Inpatient (IN) | payer MEDICARE ==
[2019-01-12] MEDS ORDERED: dilTIAZem 25 MG/5 ML INJ IV ONE (22:44)
--- NOTE | 2019-01-12 22:52 | Emergency Department Report ---
HPI - General Chief Complaint: Dizziness Time Seen by Provider: 01/12/19 22:34 - HPI HPI: Room 2 The patient is a 68-year-old male presented with a chief complaint of palpitations and chest tightness. Patient has a history of atrial fibrillation states earlier today he felt his "A. fib, normal." Patient states he had palpitations before for times rapid. Patient states this afternoon he developed intermittent chest tightness associated with slight shortness of breath. Patient denies nausea/vomiting or diaphoresis. Patient complains of intermit tent lightheadedness. The patient states she's been compliant with his own was in Lasix. When asked how he is feeling right now the patient states she still feels his heart "thumping" and he has some chest tightness. Patient states his last stress test occurred 2 months ago and his last cardiac catheterization occurred in 2013 Location: [See above] Duration: [See above] Quality: [See above] Severity: [See above] Timing: [See above] Context: [See above] Modifying factors: [See above] Associated signs and symptoms: [see above] ED Past Medical Hx - Past Medical History Hx Hypertension: Yes Hx Congestive Heart Failure: Yes Hx Diabetes: Yes Hx Deep Vein Thrombosis: Yes (both legs) Hx Pulmonary Embolism: Yes (william lungs) Hx Kidney Stones: Yes Hx COPD: Yes Additional medical history: neuropathy. a-fib - Surgical History Past Surgical History?: No Additional Surgical History: neck and back surgery 2011 - Family History Family history: no significant - Social History Smoking Status: Former Smoker (none 10 years) Substance Use Type: None (denies illicit drug use) - Medications Home Medications: Home Medications Medication Instructions Recorded Confirmed Last Taken Type Tamsulosin [Flomax] 0.4 mg PO QDAY 07/30/18 11/19/18 Unknown History predniSONE [Deltasone] 20 mg PO QDAY #7 tablet 09/28/18 11/19/18 Unknown Rx Apixaban [Eliquis] 5 mg PO BID #60 tablet 11/04/18 11/19/18 Unknown Rx Carvedilol [Coreg] 25 mg PO BID #60 tablet 11/04/18 11/19/18 Unknown Rx Insulin Aspart [NovoLOG 100 5 units SUB-Q TIDAC #90 11/04/18 11/19/18 Unknown Rx UNITS/ML VIAL] Insulin Glargine [Lantus VIAL] 10 units SUB-Q QHS #30 11/04/18 11/19/18 Unknown Rx Ipratropium/Albuterol Sulfate 1 puff IH BID #1 11/04/18 11/19/18 Unknown Rx [Combivent Respimat] Lisinopril [Zestril TAB] 2.5 mg PO QDAY tablet 11/04/18 11/19/18 Unknown Rx Meclizine [Antivert] 25 mg PO Q8H PRN #30 tablet 11/04/18 11/19/18 Unknown Rx Pantoprazole [Protonix TAB] 20 mg PO QDAY #20 tablet.dr 11/04/18 11/19/18 Unknown Rx Pregabalin [Lyrica] 50 mg PO BID #60 11/04/18 11/19/18 Unknown Rx oxyCODONE /ACETAMINOPHEN [Percocet 1 tab PO TID PRN #6 tablet 11/04/18 11/19/18 Unknown Rx 5/325 mg] Metoprolol [Lopressor TAB] 25 mg PO BID 11/19/18 11/19/18 Unknown History Colchicine 0.6 mg PO QDAY #30 capsule 11/22/18 Unknown Rx Loperamide [Imodium] 2 mg PO Q2HR PRN #30 capsule 11/22/18 Unknown Rx Vancomycin 125 mg PO Q6HR 7 Days oralsyr 11/22/18 Unknown Rx ED Review of Systems ROS: Stated complaint: CHEST DISCOMFORT Other details as noted in HPI Constitutional: no symptoms reported Eyes: denies: eye pain ENT: denies: throat pain Respiratory: shortness of breath Cardiovascular: chest pain, palpitations Endocrine: no symptoms reported Gastrointestinal: denies: nausea, vomiting Genitourinary: denies: dysuria Musculoskeletal: denies: back pain Neurological: denies: headache Physical Exam - Physical Exam Vital Signs: Vital Signs 01/12/19 01/12/19 22:43 22:44 Temperature 98.0 F 98.0 F Pulse Rate 106 H 106 H Respiratory 20 20 Rate Blood Pressure 136/81 Blood Pressure 136/81 [Right] O2 Sat by Pulse 100 99 Oximetry Physical Exam: GENERAL: The patient is well-developed well-nourished male lying on stretcher not appearing to be in acute distress. [] HEENT: Normocephalic. Atraumatic. Extraocular motions are intact. Patient has moist mucous membranes. NECK: Supple. Trachea midline CHEST/LUNGS: Clear to auscultation. There is no respiratory distress noted. HEART/CARDIOVASCULAR: Irregularly irregular. There is intermittent tachycardia. There is no gallop rub or murmur. ABDOMEN: Abdomen is soft, nontender. Patient has normal bowel sounds. There is no abdominal distention. SKIN: There is no rash. There is no diaphoresis. NEURO: The patient is awake, alert, and oriented. The patient is cooperative. The patient has normal speech MUSCULOSKELETAL: There is no evidence of acute injury. ED Course Vital Signs 01/12/19 01/12/19 22:43 22:44 Temperature 98.0 F 98.0 F Pulse Rate 106 H 106 H Respiratory 20 20 Rate Blood Pressure 136/81 Blood Pressure 136/81 [Right] O2 Sat by Pulse 100 99 Oximetry ED Medical Decision Making - Lab Data Result diagrams: 01/12/19 22:48 01/12/19 22:48 Laboratory Tests 01/12/19 01/12/19 01/12/19 22:48 22:48 22:48 WBC 4.5 RBC 4.73 Hgb 10.9 L Hct 35.3 L MCV 75 L MCH 23 L MCHC 31 L RDW 21.7 H Plt Count 161 Lymph % (Auto) 33.8 [place] % (Auto) 7.8 H Eos % (Auto) 6.0 H Baso % (Auto) 1.0 Lymph # 1.5 [place] # 0.3 Eos # 0.3 Baso # 0.0 Seg Neutrophils % 51.4 Seg Neutrophils # 2.3 PT 15.0 H INR 1.21 H APTT 29.0 Sodium 147 H Potassium 4.3 Chloride 109.4 H Carbon Dioxide 30 Anion Gap 12 BUN 14 Creatinine 1.4 Estimated GFR > 60 BUN/Creatinine Ratio 10 Glucose 114 H Calcium 8.9 Magnesium Total Creatine Kinase 44 L CK-MB (CK-2) < 1.0 CK-MB (CK-2) Rel Index 2.2 Troponin T NT-Pro-B Natriuret Pep 01/12/19 22:48 WBC RBC Hgb Hct MCV MCH MCHC RDW Plt Count Lymph % (Auto) [place] % (Auto) Eos % (Auto) Baso % (Auto) Lymph # [place] # Eos # Baso # Seg Neutrophils % Seg Neutrophils # PT INR APTT Sodium Potassium Chloride Carbon Dioxide Anion Gap BUN Creatinine Estimated GFR BUN/Creatinine Ratio Glucose Calcium Magnesium 2.00 Total Creatine Kinase CK-MB (CK-2) CK-MB (CK-2) Rel Index Troponin T < 0.010 NT-Pro-B Natriuret Pep 6298 H - EKG Data -: EKG Interpreted by Me Rate: normal - EKG Data When compared to previous EKG there are: no significant change Interpretation: other (atrial fibrillation at 84 bpm) - Radiology Data Radiology results: report reviewed (chest x-ray), image reviewed (chest x-ray) interpreted by me: Chest x-ray-no focal infiltrates, no pneumothorax [facility] [address] [place] [address] XRay Report Signed Patient: EDINSON DODD MR#: [id number] : 1950 Acct:[id number] Age/Sex: 68 / M ADM Date: 01/12/19 Loc: ED Attending Dr: Ordering Physician: DARLENE SORTO MD Date of Service: 01/12/19 Procedure(s): XR chest 1V ap Accession Number(s): [id number] cc: DARLENE SORTO MD Fluoro Time In Minutes: CHEST 1 VIEW 01/12/2019 10:46 PM INDICATION / CLINICAL INFORMATION: chest tightness. COMPARISON: 12/06/18 FINDINGS: SUPPORT DEVICES: None. HEART / MEDIASTINUM: Heart is mildly enlarged but unchanged. LUNGS / PLEURA: No significant pulmonary or pleural abnormality. No pneumothorax. AD DITIONAL FINDINGS: No significant additional findings. IMPRESSION: 1. Mild cardiomegaly but no acute pulmonary or pleural findings. No change. Signer Name: Barry Hicks MD Signed: 01/12/2019 11:10 PM Workstation Name: [id number] Transcribed By: DT Dictated By: Julius Hicks MD Electronically Authenticated By: Julius Hicks MD Signed Date/Time: 01/12/192309 DD/ 08 TD/TT: - Differential Diagnosis ACS, pericarditis, A. fib with RVR Critical care attestation.: If time is entered above; I have spent that time in minutes in the direct care of this critically ill patient, excluding procedure time. ED Disposition Clinical Impression: Chest tightness, Atrial fibrillation with rapid ventricular response Disposition: OP ADMIT IP TO THIS HOSP Is pt being admited?: Yes Does the pt Need Aspirin: Yes Condition: Fair Referrals: PRIMARY CARE,MD [Primary Care Provider] - 3-5 Days Time of Disposition: 23:45 (hospitalist paged (Dr Vergara))
[2019-01-12 23:08] LABS: Eosinophils # (Auto) 0.3 K/mm3 (0.0-0.4); Hematocrit 35.3 % (35.5-45.6); Hemoglobin 10.9 gm/dl (11.8-15.2); Lymphocytes # (Auto) 1.5 K/mm3 (1.2-5.4); Lymphocytes % (Auto) 33.8 % (13.4-35.0); Mean Corpuscular HGB Conc 31 % (32-34); Mean Corpuscular Volume 75 fl (84-94); Monocytes # (Auto) 0.3 K/mm3 (0.0-0.8); Monocytes % (Auto) 7.8 % (0.0-7.3); Platelet Count 161 K/mm3 (140-440); Red Blood Count 4.73 M/mm3 (3.65-5.03); Red Cell Distribution Width 21.7 % (13.2-15.2)
--- NOTE | 2019-01-12 23:14 | XRay Report ---
CHEST 1 VIEW 01/12/2019 10:46 PM INDICATION / CLINICAL INFORMATION: chest tightness. COMPARISON: 12/06/18 FINDINGS: SUPPORT DEVICES: None. HEART / MEDIASTINUM: Heart is mildly enlarged but unchanged. LUNGS / PLEURA: No significant pulmonary or pleural abnormality. No pneumothorax. ADDITIONAL FINDINGS: No significant additional findings. IMPRESSION: 1. Mild cardiomegaly but no acute pulmonary or pleural findings. No change. Signer Name: Barry Hicks MD Signed: 01/12/2019 11:10 PM Workstation Name: [id number]
[2019-01-12 23:31] LABS: BUN/Creatinine Ratio 10; Blood Urea Nitrogen 14 mg/dL (9-20); Calcium 8.9 mg/dL (8.4-10.2); Hemolysis Index 3
[2019-01-12 23:32] LABS: INR 1.21 (0.87-1.13)
[2019-01-12 23:33] LABS: Creatine Kinase MB < 1.0 ng/mL (0.0-4.0)
[2019-01-12] MEDS ORDERED: ASPIRIN 325 MG TAB PO ONE (23:45)
[2019-01-13] MEDS ORDERED: oxyCODONE /ACETAMINOPHEN 5-325MG TAB PO PRN (00:40)
[2019-01-13] MEDS ORDERED: ONDANSETRON 4 MG/2 ML INJ IV PRN (00:40)
[2019-01-13] MEDS ORDERED: ZOLPIDEM 5 MG TAB PO PRN (00:40)
--- NOTE | 2019-01-13 00:45 | History and Physical Report ---
History of Present Illness Date of examination: 01/13/19 Medications and Allergies Allergies Allergy/AdvReac Type Severity Reaction Status Date / Time No Known Allergies Allergy Verified 05/05/18 23:54 Home Medications Medication Instructions Recorded Confirmed Last Taken Type Tamsulosin [Flomax] 0.4 mg PO QDAY 07/30/18 11/19/18 Unknown History predniSONE [Deltasone] 20 mg PO QDAY #7 tablet 09/28/18 11/19/18 Unknown Rx Apixaban [Eliquis] 5 mg PO BID #60 tablet 11/04/18 11/19/18 Unknown Rx Carvedilol [Coreg] 25 mg PO BID #60 tablet 11/04/18 11/19/18 Unknown Rx Insulin Aspart [NovoLOG 100 5 units SUB-Q TIDAC #90 11/04/18 11/19/18 Unknown Rx UNITS/ML VIAL] Insulin Glargine [Lantus VIAL] 10 units SUB-Q QHS #30 11/04/18 11/19/18 Unknown Rx Ipratropium/Albuterol Sulfate 1 puff IH BID #1 11/04/18 11/19/18 Unknown Rx [Combivent Respimat] Lisinopril [Zestril TAB] 2.5 mg PO QDAY tablet 11/04/18 11/19/18 Unknown Rx Meclizine [Antivert] 25 mg PO Q8H PRN #30 tablet 11/04/18 11/19/18 Unknown Rx Pantoprazole [Protonix TAB] 20 mg PO QDAY #20 tablet. 11/04/18 11/19/18 Unknown Rx Pregabalin [Lyrica] 50 mg PO BID #60 11/04/18 11/19/18 Unknown Rx oxyCODONE /ACETAMINOPHEN [Percocet 1 tab PO TID PRN #6 tablet 11/04/18 11/19/18 Unknown Rx 5/325 mg] Metoprolol [Lopressor TAB] 25 mg PO BID 11/19/18 11/19/18 Unknown History Colchicine 0.6 mg PO QDAY #30 capsule 11/22/18 Unknown Rx Loperamide [Imodium] 2 mg PO Q2HR PRN #30 capsule 11/22/18 Unknown Rx Vancomycin 125 mg PO Q6HR 7 Days oralsyr 11/22/18 Unknown Rx Active Meds: Active Medications Acetaminophen (Tylenol) 650 mg PO Q4H PRN PRN Reason: Pain MILD(1-3)/Fever >100.5/LOPEZ Morphine Sulfate (Morphine) 2 mg IV Q4H PRN PRN Reason: Pain , Severe (7-10) Ondansetron HCl (Zofran) 4 mg IV Q8H PRN PRN Reason: Nausea And Vomiting Oxycodone/Acetaminophen (Percocet 5/325) 1 tab PO Q6H PRN PRN Reason: Pain, Moderate (4-6) Sodium Chloride (Sodium Chloride Flush Syringe 10 Ml) 10 ml IV BID JERRY Sodium Chloride (Sodium Chloride Flush Syringe 10 Ml) 10 ml IV PRN PRN PRN Reason: LINE FLUSH Zolpidem Tartrate (Ambien) 5 mg PO QHS PRN PRN Reason: Insomnia Exam - Constitutional Vitals: Temp Pulse Resp BP Pulse Ox 98.0 F 106 H 20 136/81 99 01/12/19 22:44 01/12/19 22:44 01/12/19 22:44 01/12/19 22:44 01/12/19 22:44 Results - Labs CBC & Chem 7: 01/12/19 22:48 01/12/19 22:48 Labs: Laboratory Last Values WBC 4.5 K/mm3 (4.5-11.0) 01/12/19 22:48 RBC 4.73 M/mm3 (3.65-5.03) 01/12/19 22:48 Hgb 10.9 gm/dl (11.8-15.2) L 01/12/19 22:48 Hct 35.3 % (35.5-45.6) L 01/12/19 22:48 MCV 75 fl (84-94) L 01/12/19 22:48 MCH 23 pg (28-32) L 01/12/19 22:48 MCHC 31 % (32-34) L 01/12/19 22:48 RDW 21.7 % (13.2-15.2) H 01/12/19 22:48 Plt Count 161 K/mm3 (140-440) 01/12/19 22:48 Lymph % (Auto) 33.8 % (13.4-35.0) 01/12/19 22:48 [place] % (Auto) 7.8 % (0.0-7.3) H 01/12/19 22:48 Eos % (Auto) 6.0 % (0.0-4.3) H 01/12/19 22:48 Baso % (Auto) 1.0 % (0.0-1.8) 01/12/19 22:48 Lymph # 1.5 K/mm3 (1.2-5.4) 01/12/19 22:48 [place] # 0.3 K/mm3 (0.0-0.8) 01/12/19 22:48 Eos # 0.3 K/mm3 (0.0-0.4) 01/12/19 22:48 Baso # 0.0 K/mm3 (0.0-0.1) 01/12/19 22:48 Seg Neutrophils % 51.4 % (40.0-70.0) 01/12/19 22:48 Seg Neutrophils # 2.3 K/mm3 (1.8-7.7) 01/12/19 22:48 PT 15.0 Sec. (12.2-14.9) H 01/12/19 22:48 INR 1.21 (0.87-1.13) H 01/12/19 22:48 APTT 29.0 Sec. (24.2-36.6) 01/12/19 22:48 Sodium 147 mmol/L (137-145) H 01/12/19 22:48 Potassium 4.3 mmol/L (3.6-5.0) 01/12/19 22:48 Chloride 109.4 mmol/L (98-107) H 01/12/19 22:48 Carbon Dioxide 30 mmol/L (22-30) 01/12/19 22:48 12 mmol/L 01/12/19 22:48 BUN 14 mg/dL (9-20) 01/12/19 22:48 1.4 mg/dL (0.8-1.5) 01/12/19 22:48 Estimated GFR > 60 ml/min 01/12/19 22:48 10 % 01/12/19 22:48 Glucose 114 mg/dL (75-100) H 01/12/19 22:48 Calcium 8.9 mg/dL (8.4-10.2) 01/12/19 22:48 Magnesium 2.00 mg/dL (1.7-2.3) 01/12/19 22:48 44 units/L (55-170) L 01/12/19 22:48 CK-MB (CK-2) < 1.0 ng/mL (0.0-4.0) 01/12/19 22:48 CK-MB (CK-2) Rel Index 2.2 (0-4) 01/12/19 22:48 < 0.010 ng/mL (0.00-0.029) 01/12/19 22:48 NT-Pro-B Natriuret Pep 6298 pg/mL (0-900) H 01/12/19 22:48 Assessment and Plan Assessment and plan: IDDM with peripheral neuropathy, Afib, PE, DVT on Eliquis GIB on Xarelto, AOCD, CHF EF 25%, hypertension, Gout, COPD/former smoker quit 10 years ago, GERD and BPH
[2019-01-13] MEDS ORDERED: FUROSEMIDE 40 MG/4 ML INJ IV ONE (00:48)
[2019-01-13] MEDS ORDERED: MORPHINE 2 MG/1 ML INJ IV PRN (00:52)
--- NOTE | 2019-01-13 00:52 | History and Physical Report ---
History of Present Illness Date of examination: 01/13/19 Chief complaint: Palpitations History of present illness: Patient is a 68-year-old -Serbian male with history of atrial fibrilla tion and CHF who presented to the ED on account of a day history of palpitations. He has associated chest tightness, headache and lightheadedness. He also complained of right-sided abdominal pain and constipation. He denies diaphoresis, cough, fever, chills, leg swelling, shortness of breath, orthopnea, PND, nausea, vomiting, syncope or loss of consciousness. Of note, patient admits to medication compliance Past History Past Medical History: atrial fib, COPD, diabetes, DVT, GERD, heart failure, hypertension, pulmonary embolism, other (neuropathy, gout, BPH) Past Surgical History: Other (neck and back surgeries) Social history: smoking (pt is an ex-cigarette smoker. He smoked for 50 yrs but quit 10 yrs ago. He denies current alcohol or illicit drug use) Family history: CAD (brother at 69 yrs) Medications and Allergies Allergies Allergy/AdvReac Type Severity Reaction Status Date / Time No Known Allergies Allergy Verified 05/05/18 23:54 Home Medications Medication Instructions Recorded Confirmed Last Taken Type Tamsulosin [Flomax] 0.4 mg PO QDAY 07/30/18 01/13/19 01/12/19 History predniSONE [Deltasone] 20 mg PO QDAY #7 tablet 09/28/18 01/13/19 01/12/19 Rx Apixaban [Eliquis] 5 mg PO BID #60 tablet 11/04/18 01/13/19 01/12/19 Rx Carvedilol [Coreg] 25 mg PO BID #60 tablet 11/04/18 01/13/19 01/12/19 Rx Insulin Aspart [NovoLOG 100 5 units SUB-Q TIDAC #90 11/04/18 01/13/19 Unknown Rx UNITS/ML VIAL] Insulin Glargine [Lantus VIAL] 10 units SUB-Q QHS #30 11/04/18 01/13/19 Unknown Rx Ipratropium/Albuterol Sulfate 1 puff IH BID #1 11/04/18 01/13/19 Unknown Rx [Combivent Respimat] Lisinopril [Zestril TAB] 2.5 mg PO QDAY tablet 11/04/18 01/13/19 Unknown Rx Meclizine [Antivert] 25 mg PO Q8H PRN #30 tablet 11/04/18 01/13/19 Unknown Rx Pantoprazole [Protonix TAB] 20 mg PO QDAY #20 tablet. 11/04/18 01/13/19 Unknown Rx Pregabalin [Lyrica] 50 mg PO BID #60 11/04/18 01/13/19 01/12/19 Rx oxyCODONE /ACETAMINOPHEN [Percocet 1 tab PO TID PRN #6 tablet 11/04/18 01/13/19 Unknown Rx 5/325 mg] Metoprolol [Lopressor TAB] 25 mg PO BID 11/19/18 01/13/19 01/12/19 History Colchicine 0.6 mg PO QDAY #30 capsule 11/22/18 01/13/19 01/12/19 Rx Active Meds: Active Medications Acetaminophen (Tylenol) 650 mg PO Q4H PRN PRN Reason: Pain MILD(1-3)/Fever >100.5/LOPEZ Apixaban (Eliquis) 5 mg PO Q12HR JERRY; Protocol Furosemide (Lasix) 40 mg IV ONCE ONE Stop: 01/13/19 00:49 Metoprolol Tartrate (Lopressor) 50 mg PO BID JERRY Morphine Sulfate (Morphine) 2 mg IV Q4H PRN PRN Reason: Pain , Severe (7-10) Ondansetron HCl (Zofran) 4 mg IV Q8H PRN PRN Reason: Nausea And Vomiting Oxycodone/Acetaminophen (Percocet 5/325) 1 tab PO Q6H PRN PRN Reason: Pain, Moderate (4-6) Sodium Chloride (Sodium Chloride Flush Syringe 10 Ml) 10 ml IV BID JERRY Sodium Chloride (Sodium Chloride Flush Syringe 10 Ml) 10 ml IV PRN PRN PRN Reason: LINE FLUSH Zolpidem Tartrate (Ambien) 5 mg PO QHS PRN PRN Reason: Insomnia Review of Systems All systems: negative (all other systems reviewed with the patient and are negative unless otherwise stated above) Exam - Constitutional Vitals: Temp Pulse Resp BP Pulse Ox 98.0 F 106 H 20 136/81 99 01/12/19 22:44 01/12/19 22:44 01/12/19 22:44 01/12/19 22:44 01/12/19 22:44 General appearance: Present: no acute distress, well-nourished - EENT Eyes: Present: PERRL, EOM intact ENT: hearing intact, clear oral mucosa - Neck Neck: Present: supple, normal ROM - Respiratory Respiratory effort: normal Respiratory: bilateral: CTA - Cardiovascular Rhythm: irregularly irregular Heart Sounds: Present: S1 & S2. Absent: rub, click - Extremities Extremities: pulses symmetrical, No edema Peripheral Pulses: within normal limits - Abdominal General gastrointestinal: Present: soft, non-tender, non-distended, normal bowel sounds Male genitourinary: Present: deferred - Rectal Rectal Exam: deferred - Integumentary Integumentary: Present: clear, warm, dry - Musculoskeletal Musculoskeletal: gait normal, strength equal bilaterally - Psychiatric Psychiatric: appropriate mood/affect, intact judgment & insight - Neurologic Neurologic: CNII-XII intact, moves all extremities Results - Labs CBC & Chem 7: 01/12/19 22:48 01/12/19 22:48 Labs: Laboratory Last Values WBC 4.5 K/mm3 (4.5-11.0) 01/12/19 22:48 RBC 4.73 M/mm3 (3.65-5.03) 01/12/19 22:48 Hgb 10.9 gm/dl (11.8-15.2) L 01/12/19 22:48 Hct 35.3 % (35.5-45.6) L 01/12/19 22:48 MCV 75 fl (84-94) L 01/12/19 22:48 MCH 23 pg (28-32) L 01/12/19 22:48 MCHC 31 % (32-34) L 01/12/19 22:48 RDW 21.7 % (13.2-15.2) H 01/12/19 22:48 Plt Count 161 K/mm3 (140-440) 01/12/19 22:48 Lymph % (Auto) 33.8 % (13.4-35.0) 01/12/19 22:48 [place] % (Auto) 7.8 % (0.0-7.3) H 01/12/19 22:48 Eos % (Auto) 6.0 % (0.0-4.3) H 01/12/19 22:48 Baso % (Auto) 1.0 % (0.0-1.8) 01/12/19 22:48 Lymph # 1.5 K/mm3 (1.2-5.4) 01/12/19 22:48 [place] # 0.3 K/mm3 (0.0-0.8) 01/12/19 22:48 Eos # 0.3 K/mm3 (0.0-0.4) 01/12/19 22:48 Baso # 0.0 K/mm3 (0.0-0.1) 01/12/19 22:48 Seg Neutrophils % 51.4 % (40.0-70.0) 01/12/19 22:48 Seg Neutrophils # 2.3 K/mm3 (1.8-7.7) 01/12/19 22:48 PT 15.0 Sec. (12.2-14.9) H 01/12/19 22:48 INR 1.21 (0.87-1.13) H 01/12/19 22:48 APTT 29.0 Sec. (24.2-36.6) 01/12/19 22:48 Sodium 147 mmol/L (137-145) H 01/12/19 22:48 Potassium 4.3 mmol/L (3.6-5.0) 01/12/19 22:48 Chloride 109.4 mmol/L (98-107) H 01/12/19 22:48 Carbon Dioxide 30 mmol/L (22-30) 01/12/19 22:48 12 mmol/L 01/12/19 22:48 BUN 14 mg/dL (9-20) 01/12/19 22:48 1.4 mg/dL (0.8-1.5) 01/12/19 22:48 Estimated GFR > 60 ml/min 01/12/19 22:48 10 % 01/12/19 22:48 Glucose 114 mg/dL (75-100) H 01/12/19 22:48 Calcium 8.9 mg/dL (8.4-10.2) 01/12/19 22:48 Magnesium 2.00 mg/dL (1.7-2.3) 01/12/19 22:48 44 units/L (55-170) L 01/12/19 22:48 CK-MB (CK-2) < 1.0 ng/mL (0.0-4.0) 01/12/19 22:48 CK-MB (CK-2) Rel Index 2.2 (0-4) 01/12/19 22:48 < 0.010 ng/mL (0.00-0.029) 01/12/19 22:48 NT-Pro-B Natriuret Pep 6298 pg/mL (0-900) H 01/12/19 22:48 Assessment and Plan Assessment and plan: A/fib with RVR -IV Cardizem bolus given in the ED, HR improved -He will be continued on his home oral Lopressor and Coreg with cardiac monitoring Hypernatremia -IV Lasix 1 given, monitor sodium level Chest tightness -Serial troponin level monitoring -Patient's last stress test was in 11/01 which showed fixed inferior wall defect. Chronic combined systolic and diastolic heart failure with EF of 25-30% -No acute exacerbation DM2 with neuropathy -stable -Continue home meds H/O DVT/PE -Continue oral anticoagulation with Eliquis COPD -No acute exacerbation AOCD -H/H stable Gout -No acute flare -Continue colchicine Constipation -On laxatives GERD -Cont Protonix BPH -Cont Flomax Disposition: Patient will be admitted to observation status with plan for discharge if his heart rate remains controlled Time spent: 38 minutes
[2019-01-13] MEDS ORDERED: ASPIRIN 325 MG TAB ONE (01:27)
[2019-01-13] MEDS ORDERED: METOPROLOL TARTRATE 50 MG TAB ONE (01:27)
[2019-01-13] MEDS ORDERED: FUROSEMIDE 40 MG/4 ML INJ ONE (01:27)
[2019-01-13] MEDS: METOPROLOL TARTRATE 50 MG TAB PO SCH ×2 (01:28→09:18)
[2019-01-13] MEDS ORDERED: MECLIZINE 25 MG TAB PO PRN (02:00)
[2019-01-13] MEDS: SENNOSIDES/DOCUSATE SODIUM 8.6/50 MG TAB PO SCH ×3 (03:00→22:00)
[2019-01-13] MEDS: ACETAMINOPHEN 325 MG TAB PO PRN ×2 (03:25→22:02)
[2019-01-13] MEDS: APIXABAN 5 MG TAB PO SCH ×2 (09:17→22:01)
[2019-01-13] MEDS: TAMSULOSIN 0.4 MG CAP PO SCH (09:17)
[2019-01-13] MEDS: POLYETHYLENE GLYCOL 3350 17 GM POWDER PO SCH (09:17)
[2019-01-13] MEDS: COLCHICINE 0.6 MG CAP PO SCH (09:18)
[2019-01-13] MEDS: PANTOPRAZOLE 20 MG TAB PO SCH (09:19)
[2019-01-13] MEDS: LISINOPRIL 5 MG TAB PO SCH (09:20)
[2019-01-13] MEDS: PREGABALIN 25 MG CAP PO SCH ×2 (09:36→22:00)
[2019-01-13] MEDS: predniSONE 20 MG TAB PO SCH (09:36)
[2019-01-13] MEDS ORDERED: carvediloL 12.5 MG TAB PO SCH (10:00)
[2019-01-13] MEDS ORDERED: PREGABALIN 50 MG PO SCH (10:00)
--- NOTE | 2019-01-13 10:30 | XRay Report ---
ABDOMEN 1 VIEW(S) INDICATION / CLINICAL INFORMATION: Acute generalized abdominal pain. COMPARISON: CT abdomen/pelvis from 11/19/2018 FINDINGS: TUBES / LINES: None. BOWEL GAS PATTERN: Nonobstructive bowel gas pattern with air distally in the colon. FREE AIR / EXTRALUMINAL GAS: None seen. ADDITIONAL FINDINGS: No significant additional findings. IMPRESSION: 1. No significant abnormality. Signer Name: Nestor Mao MD Signed: 01/13/2019 10:26 AM Workstation Name: [id number]
--- NOTE | 2019-01-13 14:39 | Progress Note ---
Assessment and Plan Assessment and plan: Patient is a 68 yo AA man with a history of IDDM with peripheral neuropathy, Afib, PE, DVT on Eliquis but GIB on Xarelto, AOCD, CHF, hypertension, Gout, COPD/former smoker quit 10 years ago, GERD and BPH who presents with palpitations. He was found to have Afib with RVR. He was given 10mg IV Cardizem with only temporary success. Patient had a CODE MET this morning as he was diaphoretic, cold, clammy and c/o severe abd pains with SOB. His bp, BG were stable. His pulse ox was 71%. Respiratory treated with O2 and he started to feel better. Acute hypoxic respiratory failure: treat with O2, ABG pending Severe Abdominal pains out of proportion with exam, abd XR negative: treat constipation with suppository, consider Vascular consult, hesitant for CTA abd/pelvis as Cr is already 1.4 A.fib with RVR-IV Cardizem bolus given in the ED, HR improved briefly, Consulted Cardiology Suspected Acute on chronic combined heart failure, EF 20-25% on ECHO in October 2018: treat with iv lasix, watch renal function closely as Cr is already 1.4, Consulted Cardiology Hypernatremia: monitor bmp closely-IV Lasix 1 given, monitor sodium level Microcytic Anemia: monitor cbc closely, had c-scopy 09/2018 Chest tightness:-Serial troponin level monitoring-Patient's last stress test was in 11/01 which showed fixed inferior wall defect. Chronic combined systolic and diastolic heart failure with EF of 25-30%-No acute exacerbation DM2 with lgucoiibnn-nrjnnw-Yfnzvwed home meds H/O DVT/PE-Continue oral anticoagulation with Eliquis COPD-No acute exacerbation AOCD-H/H stable Gout-No acute flare-Continue colchicine Constipation-On laxatives GERD-Cont Protonix BPH-Cont Flomax Prolonged inpatient services 31 minutes CCT 35 minutes History Interval history: Patient was seen and examined. Follow-up on current diagnosis of Afib with RVR. No overnight events reported to me. Patient denies any chest pain, shortness breath, nausea/vomiting or severe headaches. Imaging, nursing note, chart, labs and old chart reviewed. Discussed with patient. Hospitalist Physical - Physical exam Narrative exam: Gen: ill appearing, diaphoresis, increase use of accessory muscles. HEENT: NCAT, EOMI, PERRL, OP Clear Neck: supple, no adenopathy, no thyromegaly, no JVD CVS/Heart: irregular irregular, normal S1S2, pulses present bilaterally Chest/Lungs: CTA B, Symmetrical chest expansion, good air entry bilaterally GI/Abdomen: soft, diffuse tenderness, good bowel sounds, no guarding or rebound /Bladder: no suprapubic tenderness, no CVA or paraspinal tenderness Extermity/Skin: no c/c/e, no obvious rash MSK: FROM x 4 Neuro: CN 2-12 grossly intact, no new focal deficits Psych: calm - Constitutional Vitals: Temp Pulse Resp BP Pulse Ox 98.1 F 101 H 18 146/101 100 01/13/19 02:37 01/13/19 09:24 01/13/19 04:20 01/13/19 09:24 01/13/19 13:40 General appearance: Present: severe distress, well-nourished Results - Labs CBC & Chem 7: 01/12/19 22:48 01/12/19 22:48 Labs: Laboratory Last Values WBC 4.5 K/mm3 (4.5-11.0) 01/12/19 22:48 RBC 4.73 M/mm3 (3.65-5.03) 01/12/19 22:48 Hgb 10.9 gm/dl (11.8-15.2) L 01/12/19 22:48 Hct 35.3 % (35.5-45.6) L 01/12/19 22:48 MCV 75 fl (84-94) L 01/12/19 22:48 MCH 23 pg (28-32) L 01/12/19 22:48 MCHC 31 % (32-34) L 01/12/19 22:48 RDW 21.7 % (13.2-15.2) H 01/12/19 22:48 Plt Count 161 K/mm3 (140-440) 01/12/19 22:48 Lymph % (Auto) 33.8 % (13.4-35.0) 01/12/19 22:48 [place] % (Auto) 7.8 % (0.0-7.3) H 01/12/19 22:48 Eos % (Auto) 6.0 % (0.0-4.3) H 01/12/19 22:48 Baso % (Auto) 1.0 % (0.0-1.8) 01/12/19 22:48 Lymph # 1.5 K/mm3 (1.2-5.4) 01/12/19 22:48 [place] # 0.3 K/mm3 (0.0-0.8) 01/12/19 22:48 Eos # 0.3 K/mm3 (0.0-0.4) 01/12/19 22:48 Baso # 0.0 K/mm3 (0.0-0.1) 01/12/19 22:48 Seg Neutrophils % 51.4 % (40.0-70.0) 01/12/19 22:48 Seg Neutrophils # 2.3 K/mm3 (1.8-7.7) 01/12/19 22:48 PT 15.0 Sec. (12.2-14.9) H 01/12/19 22:48 INR 1.21 (0.87-1.13) H 01/12/19 22:48 APTT 29.0 Sec. (24.2-36.6) 01/12/19 22:48 Sodium 147 mmol/L (137-145) H 01/12/19 22:48 Potassium 4.3 mmol/L (3.6-5.0) 01/12/19 22:48 Chloride 109.4 mmol/L (98-107) H 01/12/19 22:48 Carbon Dioxide 30 mmol/L (22-30) 01/12/19 22:48 Anion Gap 12 mmol/L 01/12/19 22:48 BUN 14 mg/dL (9-20) 01/12/19 22:48 Creatinine 1.4 mg/dL (0.8-1.5) 01/12/19 22:48 Estimated GFR > 60 ml/min 01/12/19 22:48 BUN/Creatinine Ratio 10 % 01/12/19 22:48 Glucose 114 mg/dL (75-100) H 01/12/19 22:48 POC Glucose 125 (70-105) H 01/13/19 12:22 Calcium 8.9 mg/dL (8.4-10.2) 01/12/19 22:48 Magnesium 2.00 mg/dL (1.7-2.3) 01/12/19 22:48 Lactate Dehydrogenase 296 units/L (91-180) H 01/13/19 10:08 Total Creatine Kinase 44 units/L (55-170) L 01/12/19 22:48 CK-MB (CK-2) < 1.0 ng/mL (0.0-4.0) 01/12/19 22:48 CK-MB (CK-2) Rel Index 2.2 (0-4) 01/12/19 22:48 Troponin T < 0.010 ng/mL (0.00-0.029) 01/13/19 08:30 NT-Pro-B Natriuret Pep 6298 pg/mL (0-900) H 01/12/19 22:48 Active Medications - Current Medications Current Medications: Generic Name Dose Route Start Last Admin Trade Name Freq PRN Reason Stop Dose Admin Acetaminophen 650 mg 01/13/19 00:40 01/13/19 03:25 Tylenol PO 650 mg Q4H PRN Administration Pain MILD(1-3)/Fever >100.5/LOPEZ Apixaban 5 mg 01/13/19 10:00 01/13/19 09:17 Eliquis PO 5 mg Q12HR JERRY Administration Protocol Carvedilol 12.5 mg 01/13/19 10:00 01/13/19 09:17 Coreg PO 12.5 mg BID JERRY Administration Colchicine 0.6 mg 01/13/19 10:00 01/13/19 09:18 Colchicine PO 0.6 mg QDAY JERRY Administration Lisinopril 2.5 mg 01/13/19 10:00 01/13/19 09:20 Zestril PO 2.5 mg QDAY JERRY Administration Meclizine HCl 25 mg 01/13/19 02:00 Antivert PO Q8H PRN Vertigo Metoprolol Tartrate 50 mg 01/13/19 01:00 01/13/19 09:18 Lopressor PO 50 mg BID JERRY Administration Morphine Sulfate 2 mg 01/13/19 00:52 01/13/19 09:13 Morphine IV 2 mg Q4H PRN Administration Pain , Severe (7-10) Ondansetron HCl 4 mg 01/13/19 00:40 Zofran IV Q8H PRN Nausea And Vomiting Oxycodone/Acetaminophen 1 tab 01/13/19 00:40 01/13/19 12:24 Percocet 5/325 PO 1 tab Q6H PRN Administration Pain, Moderate (4-6) Pantoprazole Sodium 20 mg 01/13/19 10:00 01/13/19 09:19 Protonix PO 20 mg QDAY JERRY Administration Polyethylene Glycol 17 gm 01/13/19 10:00 01/13/19 09:17 Miralax 3350 PO 17 gm QDAY JERRY Administration Prednisone 20 mg 01/13/19 10:00 01/13/19 09:36 Deltasone PO 20 mg QDAY JERRY Administration Pregabalin 50 mg 01/13/19 10:00 01/13/19 09:36 Pregabalin PO 50 mg BID JERRY Administration Senna/Docusate Sodium 2 tab 01/13/19 02:00 01/13/19 09:36 Senokot S PO 2 tab Q12HR JERRY Administration Sodium Chloride 10 ml 01/13/19 10:00 01/13/19 09:19 Sodium Chloride Flush Syringe 10 Ml IV 10 ml BID JERRY Administration Sodium Chloride 10 ml 01/13/19 00:40 Sodium Chloride Flush Syringe 10 Ml IV PRN PRN LINE FLUSH Tamsulosin HCl 0.4 mg 01/13/19 10:00 01/13/19 09:17 Flomax PO 0.4 mg QDAY JERRY Administration Zolpidem Tartrate 5 mg 01/13/19 00:40 Ambien PO QHS PRN Insomnia
--- NOTE | 2019-01-13 15:09 | Consultation ---
History of Present Illness Consult date: 01/13/19 Requesting physician: GUNNAR COPELAND Consult reason: atrial fibrillation, known to you History of present illness: The pt is a 68 YO male with a past medical history of persistent atrial fibrillation, DVT and PE, anticoagulated with Eliquis, CMP, HFrEF, HTN, DM, HLP, COPD, gout, ? recent C.Diff infection. He has been seen by our practice on prior admissions and is regularly followed by [place] [facility]. He presented with c/o SOB and palpitations since Sunday. He states that he knows his "AFib is acting up again". He denies any chest pain, n/v, diaphoresis, dizziness or syncope. He also c/o some abdominal pain and constipation which has improved since having a BM earlier today. He reports full compliance with his home medication regimen, including Eliquis and coreg. Following arrival, he was found to be in AFib with RVR and was given IV cardizem bolus. Patient had a CODE MET this morning as he was diaphoretic, cold, clammy and c/o severe abd pain with SOB. His bp, BG were stable. His pulse ox was 71% and thus was initiated on O2 via Hi-no nasal cannula. On evaluation, he is in AFib with HR 80s - 90s. He is resting comfortably with no current complaints. Lexiscan MPI stress test done 10/2018 was negative for ischemia, EF 29%. Echo done 09/2018 showed EF 25-30%, impaired relaxation, mild to mod MR, trace TR, mild MD. Past History Past Medical History: atrial fib, COPD, diabetes, DVT, GERD, heart failure, hypertension, pulmonary embolism, other (neuropathy, gout, BPH) Past Surgical History: Other (neck and back surgeries) Social history: smoking (pt is an ex-cigarette smoker. He smoked for 50 yrs but quit 10 yrs ago. He denies current alcohol or illicit drug use) Family history: CAD (brother at 69 yrs) Medications and Allergies Allergies Allergy/AdvReac Type Severity Reaction Status Date / Time No Known Allergies Allergy Verified 05/05/18 23:54 Home Medications Medication Instructions Recorded Confirmed Last Taken Type Tamsulosin [Flomax] 0.4 mg PO QDAY 07/30/18 01/13/19 01/12/19 History predniSONE [Deltasone] 20 mg PO QDAY #7 tablet 09/28/18 01/13/19 01/12/19 Rx Apixaban [Eliquis] 5 mg PO BID #60 tablet 11/04/18 01/13/19 01/12/19 Rx Carvedilol [Coreg] 25 mg PO BID #60 tablet 11/04/18 01/13/19 01/12/19 Rx Insulin Aspart [NovoLOG 100 5 units SUB-Q TIDAC #90 11/04/18 01/13/19 Unknown Rx UNITS/ML VIAL] Insulin Glargine [Lantus VIAL] 10 units SUB-Q QHS #30 11/04/18 01/13/19 Unknown Rx Ipratropium/Albuterol Sulfate 1 puff IH BID #1 11/04/18 01/13/19 Unknown Rx [Combivent Respimat] Lisinopril [Zestril TAB] 2.5 mg PO QDAY tablet 11/04/18 01/13/19 Unknown Rx Meclizine [Antivert] 25 mg PO Q8H PRN #30 tablet 11/04/18 01/13/19 Unknown Rx Pantoprazole [Protonix TAB] 20 mg PO QDAY #20 tablet. 11/04/18 01/13/19 Unknown Rx Pregabalin [Lyrica] 50 mg PO BID #60 11/04/18 01/13/19 01/12/19 Rx oxyCODONE /ACETAMINOPHEN [Percocet 1 tab PO TID PRN #6 tablet 11/04/18 01/13/19 Unknown Rx 5/325 mg] Metoprolol [Lopressor TAB] 25 mg PO BID 11/19/18 01/13/19 01/12/19 History Colchicine 0.6 mg PO QDAY #30 capsule 11/22/18 01/13/19 01/12/19 Rx Active Meds: Active Medications Acetaminophen (Tylenol) 650 mg PO Q4H PRN PRN Reason: Pain MILD(1-3)/Fever >100.5/LOPEZ Last Admin: 01/13/19 03:25 Dose: 650 mg Documented by: Apixaban (Eliquis) 5 mg PO Q12HR [facility]; Protocol Last Admin: 01/13/19 09:17 Dose: 5 mg Documented by: Carvedilol (Coreg) 12.5 mg PO BID JERRY Last Admin: 01/13/19 09:17 Dose: 12.5 mg Documented by: Colchicine (Colchicine) 0.6 mg PO QDAY [facility] Last Admin: 01/13/19 09:18 Dose: 0.6 mg Documented by: Lisinopril (Zestril) 2.5 mg PO QDAY [facility] Last Admin: 01/13/19 09:20 Dose: 2.5 mg Documented by: Meclizine HCl (Antivert) 25 mg PO Q8H PRN PRN Reason: Vertigo Metoprolol Tartrate (Lopressor) 50 mg PO BID [facility] Last Admin: 01/13/19 09:18 Dose: 50 mg Documented by: Morphine Sulfate (Morphine) 2 mg IV Q4H PRN PRN Reason: Pain , Severe (7-10) Last Admin: 01/13/19 09:13 Dose: 2 mg Documented by: Ondansetron HCl (Zofran) 4 mg IV Q8H PRN PRN Reason: Nausea And Vomiting Oxycodone/Acetaminophen (Percocet 5/325) 1 tab PO Q6H PRN PRN Reason: Pain, Moderate (4-6) Last Admin: 01/13/19 12:24 Dose: 1 tab Documented by: Pantoprazole Sodium (Protonix) 20 mg PO QDAY [facility] Last Admin: 01/13/19 09:19 Dose: 20 mg Documented by: Polyethylene Glycol (Miralax [id number]) 17 gm PO QDAY [facility] Last Admin: 01/13/19 09:17 Dose: 17 gm Documented by: Prednisone (Deltasone) 20 mg PO QDAY [facility] Last Admin: 01/13/19 09:36 Dose: 20 mg Documented by: Pregabalin (Pregabalin) 50 mg PO BID [facility] Last Admin: 01/13/19 09:36 Dose: 50 mg Documented by: Senna/Docusate Sodium (Senokot S) 2 tab PO Q12HR [facility] Last Admin: 01/13/19 09:36 Dose: 2 tab Documented by: Sodium Chloride (Sodium Chloride Flush Syringe 10 Ml) 10 ml IV BID [facility] Last Admin: 01/13/19 09:19 Dose: 10 ml Documented by: Sodium Chloride (Sodium Chloride Flush Syringe 10 Ml) 10 ml IV PRN PRN PRN Reason: LINE FLUSH Tamsulosin HCl (Flomax) 0.4 mg PO QDAY [facility] Last Admin: 01/13/19 09:17 Dose: 0.4 mg Documented by: Zolpidem Tartrate (Ambien) 5 mg PO QHS PRN PRN Reason: Insomnia Review of Systems Constitutional: no weight loss, no weight gain, no fever, no chills, no sweats Ears, nose, mouth and throat: no ear pain, no nose pain, no sinus pressure, no sinus pain Cardiovascular: palpitations, rapid/irregular heart beat, no chest pain, no orthopnea, no edema, no syncope, no lightheadedness, no shortness of breath, no dyspnea on exertion Respiratory: no cough, no shortness of breath, no dyspnea on exertion, no congestion, no wheezing, no pain on inspiration Gastrointestinal: abdominal pain, constipation, no nausea, no vomiting, no diarrhea, no hematemesis, no coffee ground emesis, no BRBPR, no melena, no hematochezia Genitourinary Male: no dysuria, no hematuria, no flank pain, no discharge, no urinary frequency, no urinary hesitancy Musculoskeletal: no neck stiffness, no neck pain, no shooting arm pain, no arm numbness/tingling, no low back pain, no shooting leg pain Integumentary: no rash, no pruritis, no redness, no sores, no wounds Neurological: no head injury, no paralysis, no weakness, no parathesias, no numbness, no tingling, no seizures, no syncope Psychiatric: no anxiety Endocrine: no cold intolerance, no heat intolerance Hematologic/Lymphatic: no easy bruising, no easy bleeding Allergic/Immunologic: no urticaria, no wheezing Physical Examination Vital Signs Pulse Resp 90 23 01/12/19 22:36 01/12/19 22:36 General appearance: no acute distress HEENT: Positive: PERRL, Normocephaly, Mucus Membranes Moist Neck: Positive: neck supple, trachea midline Cardiac: Positive: irregularly irregular, S1/S2 Lungs: Positive: Decreased Breath Sounds, Oxygen Neuro: Positive: Grossly Intact Abdomen: Positive: Soft. Negative: Tender Skin: Negative: Rash Musculoskeletal: No Pain Extremities: Absent: edema Results 01/12/19 22:48 01/12/19 22:48 Cardiac Enzymes 01/12/19 01/13/19 Range/Units 22:48 10:08 Lactate Dehydrogenase 296 H (91-180) units/L CK-MB (CK-2) < 1.0 (0.0-4.0) ng/mL Coagulation 01/12/19 Range/Units 22:48 PT 15.0 H (12.2-14.9) Sec. INR 1.21 H (0.87-1.13) APTT 29.0 (24.2-36.6) Sec. CBC 01/12/19 Range/Units 22:48 WBC 4.5 (4.5-11.0) K/mm3 RBC 4.73 (3.65-5.03) M/mm3 Hgb 10.9 L (11.8-15.2) gm/dl Hct 35.3 L (35.5-45.6) % Plt Count 161 (140-440) K/mm3 Lymph # 1.5 (1.2-5.4) K/mm3 [place] # 0.3 (0.0-0.8) K/mm3 Eos # 0.3 (0.0-0.4) K/mm3 Baso # 0.0 (0.0-0.1) K/mm3 Comprehensive Metabolic Panel 01/12/19 Range/Units 22:48 Sodium 147 H (137-145) mmol/L Potassium 4.3 (3.6-5.0) mmol/L Chloride 109.4 H (98-107) mmol/L Carbon Dioxide 30 (22-30) mmol/L BUN 14 (9-20) mg/dL Creatinine 1.4 (0.8-1.5) mg/dL Glucose 114 H (75-100) mg/dL Calcium 8.9 (8.4-10.2) mg/dL - Imaging and Cardiology Echo: report reviewed ( 09/2018 showed EF 25-30%, impaired relaxation, mild to mod MR, trace TR, mild MD. ) EKG: report reviewed, image reviewed EKG interpretations - Telemetry EKG Rhythm: Atrial Fibrillation - EKG Supraventricular dysrhythmia: atrial fibrillation Assessment and Plan Persistent atrial fibrillation with RVR Currently in AFib with CVR s/p IV cardizem bolus. Cont home Coreg and Eliquis. Acute respiratory failure On O2 via HiFlo nasal cannula. CXR with NAF. Consider pulmonary consultation per primary. COPD Abdominal pain / constipation / recent suspected C.Diff infection Pt reports resolution of abdominal pain since having BM earlier today. Abdomen XR with NAF. Further eval/management per primary. Cardiomyopathy Lexiscan MPI stress test done 10/2018 was negative for ischemia, EF 29%. Echo done 09/2018 showed EF 25-30%, impaired relaxation, mild to mod MR, trace TR, mild MD. No current clinical evidence of acutely decompensated HF. Cont coreg and lisinopril. H/o DVT and PE Cont Eliquis. HTN DM HLP The patient has been seen in conjunction with Dr. Espinoza who agrees with the assessment and plan of care.
[2019-01-13] MEDS: carvediloL 25 MG TAB PO SCH ×2 (22:00→22:01)
[2019-01-14 08:21] LABS: BUN/Creatinine Ratio 11; Blood Urea Nitrogen 14 mg/dL (9-20); Calcium 8.8 mg/dL (8.4-10.2); Hemolysis Index 2
--- NOTE | 2019-01-14 10:07 | Progress Note ---
Assessment and Plan Persistent atrial fibrillation with RVR Now in AFib with CVR. Cont home Coreg and Eliquis. Acute respiratory failure Improving. On O2 via nasal cannula. CXR with NAF. COPD Abdominal pain / constipation / recent suspected C.Diff infection Pt reports resolution of abdominal pain since having BM yesterday. Abdomen XR with NAF. Further eval/management per primary. Cardiomyopathy Lexiscan MPI stress test done 10/2018 was negative for ischemia, EF 29%. Echo done 09/2018 showed EF 25-30%, impaired relaxation, mild to mod MR, trace TR, mild NC. No current clinical evidence of acutely decompensated HF. Cont coreg and lisinopril. H/o DVT and PE Cont Eliquis. HTN DM HLP Currently stable cardiac status. Pt may discharge from cardiology standpoint on home cardiac regimen. Recommend pt follow up with [facility] cardiology within 1-2 weeks of hospital discharge. Pt verbalizes understanding. The patient has been seen in conjunction with Dr. Espinoza who agrees with the assessment and plan of care. Subjective Date of service: 01/14/19 Principal diagnosis: AFib Interval history: pt resting comfortably in bed, on O2 via nasal cannula, no current complaints. in AFib with CVR overnight, HR 80s - 90s. Objective Last Vital Signs Temp 98.3 F 01/14/19 07:35 Pulse 89 01/14/19 06:00 Resp 18 01/14/19 07:35 BP 123/71 01/14/19 07:35 Pulse Ox 97 01/14/19 09:54 - Physical Examination General: No Apparent Distress HEENT: Positive: PERRL, Normocephaly, Mucus Membranes Moist Neck: Positive: neck supple, trachea midline Cardiac: Positive: irregularly irregular, S1/S2 Lungs: Positive: Decreased Breath Sounds Neuro: Positive: Grossly Intact Abdomen: Positive: Soft. Negative: Tender Skin: Negative: Rash Musculoskeletal: No Pain Extremities: Absent: edema - Labs and Meds Cardiac Enzymes 01/13/19 Range/Units 10:08 Lactate Dehydrogenase 296 H (91-180) units/L Comprehensive Metabolic Panel 01/14/19 Range/Units 06:57 Sodium 144 (137-145) mmol/L Potassium 4.9 (3.6-5.0) mmol/L Chloride 107.1 H (98-107) mmol/L Carbon Dioxide 28 (22-30) mmol/L BUN 14 (9-20) mg/dL Creatinine 1.3 (0.8-1.5) mg/dL Glucose 107 H (75-100) mg/dL Calcium 8.8 (8.4-10.2) mg/dL - Imaging and Cardiology EKG: report reviewed, image reviewed Echo: report reviewed ( 09/2018 showed EF 25-30%, impaired relaxation, mild to mod MR, trace TR, mild NC. )
[2019-01-14] MEDS: PREGABALIN 25 MG CAP PO SCH ×2 (11:11→21:44)
[2019-01-14] MEDS: PANTOPRAZOLE 20 MG TAB PO SCH (11:12)
[2019-01-14] MEDS: TAMSULOSIN 0.4 MG CAP PO SCH (11:12)
[2019-01-14] MEDS: APIXABAN 5 MG TAB PO SCH ×2 (11:12→21:44)
[2019-01-14] MEDS: SENNOSIDES/DOCUSATE SODIUM 8.6/50 MG TAB PO SCH ×2 (11:12→21:44)
[2019-01-14] MEDS: LISINOPRIL 5 MG TAB PO SCH (11:13)
[2019-01-14] MEDS: carvediloL 25 MG TAB PO SCH ×2 (11:13→21:44)
[2019-01-14] MEDS: POLYETHYLENE GLYCOL 3350 17 GM POWDER PO SCH (11:14)
[2019-01-14] MEDS: COLCHICINE 0.6 MG CAP PO SCH (11:23)
[2019-01-14] MEDS: predniSONE 20 MG TAB PO SCH (11:23)
--- NOTE | 2019-01-14 15:05 | Progress Note ---
Subjective Date of service: 01/14/19 Principal diagnosis: AFib Interval history: Assessment and plan: Patient is a 68 yo AA man with a history of IDDM with peripheral neuropathy, Afib, PE, DVT on Eliquis but GIB on Xarelto, AOCD, CHF, hypertension, Gout, COPD/former smoker quit 10 years ago, GERD and BPH who presents with palpitations. He was found to have Afib with RVR. He was given 10mg IV Cardizem with only temporary success. Patient had a CODE MET this morning as he was diaphoretic, cold, clammy and c/o severe abd pains with SOB. His bp, BG were stable. His pulse ox was 71%. Respiratory treated with O2 and he started to feel better. Hypoxia: Continue oxygen when nasal cannula, oxygen saturation 97% Severe Abdominal pains out of proportion with exam, abd XR negative: treat constipation with suppository, consider Vascular consult, hesitant for CTA abd/pelvis as Cr is already 1.4 A.fib with RVR-IV Cardizem bolus given in the ED, HR improved. It's running in the mid 80s at this time Cardiology Consult note reviewed Suspected Acute on chronic combined heart failure, EF 20-25% on ECHO in October 2018: treat with iv lasix, watch renal function closely as Cr is already 1.4, Consulted Cardiology Hypernatremia: Mild and resolved after review of his labs normocytic Anemia: Likely chronic ,monitor cbc closely, had c-scopy 09/2018 Chest tightness:-AK ruled out seated troponin levels-Patient's last stress test was in 11/01 which showed fixed inferior wall defect. Chronic combined systolic and diastolic heart failure with EF of 25-30%-No acute exacerbation DM2 with bjcvaictms-yvicfz-Hxpimdmj home meds H/O DVT/PE-Continue oral anticoagulation with Eliquis COPD-No acute exacerbation Gout-No acute flare-Continue colchicine Constipation-On laxatives GERD-Cont Protonix BPH-Cont Flomax CCT 20 minutes History Interval history: Patient was seen and examined. Follow-up on current diagnosis of Afib with RVR. No overnight events reported to me. Patient denies any chest pain, shortness breath, nausea/vomiting or severe headaches. States he feels better .Imaging, nursing note, chart, labs and old chart reviewed. Discussed with patient. Hospitalist Physical - Physical exam Narrative exam: Gen: Alert and oriented not in any acute distress, feels better HEENT: NCAT, EOMI, PERRL, OP Clear Neck: supple, no JVD CVS/Heart: irregular irregular, normal S1S2 Chest/Lungs: CTA GI/Abdomen: soft, benign /Bladder: no suprapubic tenderness Extermity/Skin: no c/c/e, no obvious rash Neuro: CN 2-12 grossly intact, no new focal deficits Psych: calm Objective - Constitutional Vitals: Vital Signs - 12hr 01/14/19 01/14/19 01/14/19 04:13 06:00 07:35 Temperature 97.6 F 98.3 F Pulse Rate 89 89 Respiratory 20 18 Rate Blood Pressure 112/71 123/71 O2 Sat by Pulse 100 Oximetry 01/14/19 01/14/19 09:54 11:13 Temperature Pulse Rate 88 Respiratory Rate Blood Pressure O2 Sat by Pulse 97 Oximetry - Labs CBC & Chem 7: 01/12/19 22:48 01/14/19 06:57 Labs: Abnormal lab results 01/13/19 01/13/19 01/14/19 Range/Units 17:50 22:15 06:57 Chloride 107.1 H (98-107) mmol/L Glucose 107 H (75-100) mg/dL POC Glucose 136 H 120 H (70-105) 01/14/19 Range/Units 11:57 Chloride (98-107) mmol/L Glucose (75-100) mg/dL POC Glucose 108 H (70-105)
[2019-01-15 06:18] LABS: BUN/Creatinine Ratio 13; Blood Urea Nitrogen 16 mg/dL (9-20); Calcium 8.8 mg/dL (8.4-10.2); Hemolysis Index 5
[2019-01-15] MEDS: COLCHICINE 0.6 MG CAP PO SCH (10:16)
[2019-01-15] MEDS: predniSONE 20 MG TAB PO SCH (10:16)
[2019-01-15] MEDS: TAMSULOSIN 0.4 MG CAP PO SCH (10:16)
[2019-01-15] MEDS: carvediloL 25 MG TAB PO SCH (10:17)
[2019-01-15] MEDS: PANTOPRAZOLE 20 MG TAB PO SCH (10:17)
[2019-01-15] MEDS: PREGABALIN 25 MG CAP PO SCH (10:17)
[2019-01-15] MEDS: SENNOSIDES/DOCUSATE SODIUM 8.6/50 MG TAB PO SCH (10:17)
[2019-01-15] MEDS: POLYETHYLENE GLYCOL 3350 17 GM POWDER PO SCH (10:17)
[2019-01-15] MEDS: LISINOPRIL 5 MG TAB PO SCH (10:17)
[2019-01-15] MEDS: APIXABAN 5 MG TAB PO SCH (10:18)
--- NOTE | 2019-01-15 11:38 | Discharge Summary ---
Providers - Providers Date of Admission: 01/13/19 10:57 Date of discharge: 01/15/19 Attending physician: LUIS HENDRICKSON 01/13/19 14:44 Consult to Physician [CONS] Routine Comment: Consulting Provider: JUSTINA LOVE Physician Instructions: Reason For Exam: afib with RVR Primary care physician: PHYSICAL MEDICINE PHYSICIAN Hospitalization Reason for admission: acute HF Condition: Fair Hospital course: Patient is a 68 yo AA man with a history of IDDM with peripheral neuropathy, Afib, PE, DVT on Eliquis but GIB on Xarelto, AOCD, CHF, hypertension, Gout, COPD/former smoker quit 10 years ago, GERD and BPH who presented with palpitations. He was found to have Afib with RVR. The patient was admitted with diagnosis of acute hypoxic rest or failure, A. fib with RVR, acute on chronic combined heart failure and abdominal pain. He was given 10mg IV Cardizem with only temporary success. Patient had a CODE MET on the morning after admission and he was diaphoretic, cold, clammy and c/o severe abd pains with SOB. His bp, BG were stable. His pulse ox was 71%. Respiratory treated with O2 and he started to feel better. Patient's abdominal films were negative. Patient was treated for constipation with resolution of symptoms. Cardiology was consulted for the atrial fibrillation and medicine patient medically with continued oral anticoagulation and Coreg 25 mg twice a day. Chest x-ray showed no acute findings and heart failure resolved with IV treatment. Cardiology felt the patient was stable for discharge and this will be discharged home. Dedicated discharge time 32 minutes. Disposition: - TO HOME OR SELFCARE Time spent for discharge: 32 - Discharge Diagnoses (1) Atrial fibrillation with RVR Status: Acute (2) NETO (acute kidney injury) Status: Acute (3) Acute HFrEF (heart failure with reduced ejection fraction) Status: Acute (4) Anemia Status: Acute Qualifiers: Anemia type: unspecified type Qualified Code(s): D64.9 - Anemia, unspecified (5) CHF (congestive heart failure) Status: Acute Qualifiers: Heart failure type: unspecified Heart failure chronicity: acute on chronic Qualified Code(s): I50.9 - Heart failure, unspecified (6) Permanent atrial fibrillation with RVR Status: Acute (7) COPD (chronic obstructive pulmonary disease) Status: Chronic (8) Cardiomyopathy Status: Chronic (9) Diabetes Status: Chronic Core Measure Documentation - Palliative Care Palliative Care/ Comfort Measures: Not Applicable - Core Measures Any of the following diagnoses?: heart failure - Heart Failure Discharge Requirements ADRIAN/ARB for LVSD if EF <40%: Yes Beta elena at discharge: Yes Exam - Constitutional Vitals: Temp Pulse Resp BP Pulse Ox 98.2 F 95 H 16 137/78 99 01/15/19 08:35 01/15/19 10:00 01/15/19 08:35 01/15/19 08:35 01/15/19 10:00 General appearance: Present: no acute distress, well-nourished - EENT Eyes: Present: PERRL ENT: hearing intact, clear oral mucosa - Neck Neck: Present: supple, normal ROM - Respiratory Respiratory effort: normal Respiratory: bilateral: CTA - Cardiovascular Heart Sounds: Present: S1 & S2. Absent: rub, click - Extremities Extremities: pulses symmetrical, No edema Peripheral Pulses: within normal limits - Abdominal General gastrointestinal: Present: soft, non-tender, non-distended, normal bowel sounds Male genitourinary: Present: normal - Integumentary Integumentary: Present: clear, warm, dry - Musculoskeletal Musculoskeletal: gait normal, strength equal bilaterally - Psychiatric Psychiatric: appropriate mood/affect, intact judgment & insight - Neurologic Neurologic: CNII-XII intact, moves all extremities Plan Activity: advance as tolerated Weight Bearing Status: Weight Bear as Tolerated Diet: low fat, low cholesterol, low salt, diabetic Special Instructions: restrict fluid intake to (1 L) Follow up with: PRIMARY MD ADRIANO [Primary Care Provider] - 3-5 Days LEX KOLB MD [Staff Physician] - 7 Days Prescriptions: Zolpidem [Ambien] 5 mg PO QHS PRN #10 tablet PRN Reason: Insomnia Meclizine [Antivert] 25 mg PO Q8H PRN #30 tablet PRN Reason: Vertigo Colchicine 0.6 mg PO QDAY #30 capsule Carvedilol [Coreg] 25 mg PO BID #60 tablet Apixaban [Eliquis] 5 mg PO Q12HR #60 tablet Tamsulosin [Flomax] 0.4 mg PO QDAY #30 cap Pregabalin [Lyrica] 50 mg PO BID #60 cap Polyethylene Glycol 3350 [Miralax 3350] 17 gm PO QDAY #5 powd.pack oxyCODONE /ACETAMINOPHEN [Percocet 5/325 mg] 1 tab PO Q6H PRN #12 tablet PRN Reason: Pain, Moderate (4-6) Pantoprazole [Protonix TAB] 20 mg PO QDAY #20 tablet. Lisinopril [Zestril TAB] 2.5 mg PO QDAY #30 tablet
[2019-01-15 13:53] VITALS: BP 143/86
== END 2019-01-15 13:15 | disposition home health service (06) | DRG 308 ==
LOC: ED 22:29 → 4A 01-13 00:40 → OBSVTOIN 01-13 10:57
PROVIDERS: ADMIT Internal Medicine; ATTEND Hospitalist
DX: I48.21 Permanent atrial fibrillation (principal); J96.01 Acute respiratory failure with hypoxia; I50.23 Acute on chronic systolic (congestive) heart failure; E87.0 Hyperosmolality and hypernatremia; N17.9 Acute kidney failure, unspecified; I42.9 Cardiomyopathy, unspecified; I11.0 Hypertensive heart disease with heart failure; J44.9 Chronic obstructive pulmonary disease, unspecified; N40.0 Benign prostatic hyperplasia without lower urinary tract symptoms; E11.40 Type 2 diabetes mellitus with diabetic neuropathy, unspecified; M10.9 Gout, unspecified; D63.8 Anemia in other chronic diseases classified elsewhere; K59.00 Constipation, unspecified; D50.9 Iron deficiency anemia, unspecified; E78.5 Hyperlipidemia, unspecified; Z86.718 Personal history of other venous thrombosis and embolism; Z87.891 Personal history of nicotine dependence; Z79.4 Long term (current) use of insulin; Z86.711 Personal history of pulmonary embolism; Z79.01 Long term (current) use of anticoagulants
CPT/HCPCS: 36415; 71045; 74018; 80048; 82550; 82553; 82962; 83615; 83735; 83880; 84484; 85025; 85610; 85730; 87116; 93005; 93010; 94760; 96374; G0378; J1940; J2270; J7512

== ENCOUNTER 2019-01-26 22:54 | Observation (INO) | payer MEDICARE ==
--- NOTE | 2019-01-26 23:57 | Emergency Department Report ---
HPI - General Chief Complaint: Arrhythmia/Palpitations Time Seen by Provider: 01/26/19 23:39 - HPI HPI: Room 1 The patient is a 68-year-old male presenting with a chief complaint of chest pain and palpitations. Patient states his symptoms began yesterday with intermittent tachycardia. Patient states he would notice heart rate would go up to approximately 110. Patient states today he developed tightness in his chest that is intermittent and associated with shortness of breath. Patient denies nausea/vomiting or diaphoresis. Patient currently gives his tightness a score of 3-4/10 ED Past Medical Hx - Past Medical History Previous Medical History?: Yes Hx Hypertension: Yes Hx Congestive Heart Failure: Yes Hx Diabetes: Yes Hx Deep Vein Thrombosis: Yes (both legs) Hx Pulmonary Embolism: Yes (william lungs) Hx Kidney Stones: Yes Hx COPD: Yes Additional medical history: neuropathy. a-fib - Surgical History Past Surgical History?: Yes Additional Surgical History: neck and back surgery 2011 - Family History Family history: no significant - Social History Smoking Status: Former Smoker (none 10 years) Substance Use Type: None (denies illicit drug use) - Medications Home Medications: Home Medications Medication Instructions Recorded Confirmed Last Taken Type predniSONE [Deltasone] 20 mg PO QDAY #7 tablet 09/28/18 01/13/19 01/12/19 Rx Apixaban [Eliquis] 5 mg PO BID #60 tablet 11/04/18 01/13/19 01/12/19 Rx Insulin Aspart [NovoLOG 100 5 units SUB-Q TIDAC #90 11/04/18 01/13/19 Unknown Rx UNITS/ML VIAL] Insulin Glargine [Lantus VIAL] 10 units SUB-Q QHS #30 11/04/18 01/13/19 Unknown Rx Ipratropium/Albuterol Sulfate 1 puff IH BID #1 11/04/18 01/13/19 Unknown Rx [Combivent Respimat] Apixaban [Eliquis] 5 mg PO Q12HR #60 tablet 01/15/19 Unknown Rx Carvedilol [Coreg] 25 mg PO BID #60 tablet 01/15/19 Unknown Rx Colchicine 0.6 mg PO QDAY #30 capsule 01/15/19 Unknown Rx Lisinopril [Zestril TAB] 2.5 mg PO QDAY #30 tablet 01/15/19 Unknown Rx Meclizine [Antivert] 25 mg PO Q8H PRN #30 tablet 01/15/19 Unknown Rx Pantoprazole [Protonix TAB] 20 mg PO QDAY #20 tablet.dr 01/15/19 Unknown Rx Polyethylene Glycol 3350 [Miralax 17 gm PO QDAY #5 powd.pack 01/15/19 Unknown Rx 3350] Pregabalin [Lyrica] 50 mg PO BID #60 cap 01/15/19 Unknown Rx Tamsulosin [Flomax] 0.4 mg PO QDAY #30 cap 01/15/19 Unknown Rx Zolpidem [Ambien] 5 mg PO QHS PRN #10 tablet 01/15/19 Unknown Rx oxyCODONE /ACETAMINOPHEN [Percocet 1 tab PO Q6H PRN #12 tablet 01/15/19 Unknown Rx 5/325 mg] ED Review of Systems ROS: Stated complaint: RAPID HEART RATE Other details as noted in HPI Constitutional: no symptoms reported Eyes: denies: eye pain ENT: denies: throat pain Respiratory: shortness of breath Cardiovascular: chest pain, palpitations Endocrine: no symptoms reported Gastrointestinal: denies: nausea, vomiting Genitourinary: denies: dysuria Musculoskeletal: denies: back pain Neurological: denies: headache Physical Exam - Physical Exam Vital Signs: Vital Signs 01/26/19 01/26/19 23:06 23:09 Temperature 98 F Pulse Rate 99 H Respiratory 15 15 Rate Blood Pressure 150/85 O2 Sat by Pulse 100 99 Oximetry Physical Exam: GENERAL: The patient is well-developed well-nourished male lying on stretcher not appearing to be in acute distress. [] HEENT: Normocephalic. Atraumatic. Extraocular motions are intact. Patient has moist mucous membranes. NECK: Supple. Trachea midline CHEST/LUNGS: Clear to auscultation. There is no respiratory distress noted. HEART/CARDIOVASCULAR: Irregularly irregular. There is no tachycardia. There is no gallop rub or murmur. ABDOMEN: Abdomen is soft, nontender. Patient has normal bowel sounds. There is no abdominal distention. SKIN: There is no rash. There is no edema. There is no diaphoresis. NEURO: The patient is awake, alert, and oriented. The patient is cooperative. The patient has normal speech MUSCULOSKELETAL: There is no evidence of acute injury. ED Course Vital Signs 01/26/19 01/26/19 23:06 23:09 Temperature 98 F Pulse Rate 99 H Respiratory 15 15 Rate Blood Pressure 150/85 O2 Sat by Pulse 100 99 Oximetry ED Medical Decision Making - Lab Data Result diagrams: 01/26/19 23:23 01/26/19 23:23 Laboratory Tests 01/26/19 01/26/19 01/27/19 23:23 23:23 00:27 WBC 3.6 L RBC 4.45 Hgb 10.4 L Hct 33.2 L MCV 75 L MCH 23 L MCHC 31 L RDW 21.3 H Plt Count 146 Lymph % (Auto) 32.5 [place] % (Auto) 10.9 H Eos % (Auto) 4.1 Baso % (Auto) 0.8 Lymph # 1.2 [place] # 0.4 Eos # 0.1 Baso # 0.0 Seg Neutrophils % 52.0 Seg Neutrophils # 1.9 PT 15.3 H INR 1.24 H APTT 33.4 Sodium 147 H Potassium 4.7 Chloride 110.2 H Carbon Dioxide 28 Anion Gap 14 BUN 14 Creatinine 1.3 Estimated GFR > 60 BUN/Creatinine Ratio 11 Glucose 93 Calcium 8.7 Troponin T < 0.010 - EKG Data -: EKG Interpreted by Me Rate: normal - EKG Data When compared to previous EKG there are: no significant change Interpretation: other (atrial fibrillation at 92 bpm) - Radiology Data Radiology results: report reviewed (chest x-ray), image reviewed (chest x-ray) interpreted by me: Chest [id number]. No pneumothorax [facility] [address] [place] [address] XRay Report Signed Patient: EDINSON DODD MR#: [id number] : 1950 Acct:[id number] Age/Sex: 68 / M ADM Date: 01/26/19 Loc: ED Attending Dr: Ordering Physician: DARLENE SORTO MD Date of Service: 01/26/19 Procedure(s): XR chest 1V ap Accession Number(s): [id number] cc: DARLENE SORTO MD Fluoro Time In Minutes: CHEST 1 VIEW INDICATION / CLINICAL INFORMATION: Chest Pain. COMPARISON: 01/12/2019 FINDINGS: SUPPORT DEVICES: None. HEART / MEDIASTIN UM: Stable mild enlargement of the cardiac mediastinal silhouette LUNGS / PLEURA: No significant pulmonary or pleural abnormality. No pneumothorax. ADDITIONAL FINDINGS: No significant additional findings. IMPRESSION: 1. No acute findings. 2. Stable cardiomegaly. Signer Name: Murtaza Lozano MD Signed: 1 11:53 PM Workstation Name: [id number] Transcribed By: [place] Dictated By: Murtaza Lozano MD Electronically Authenticated By: Murtaza Lozano MD Signed Date/Time: 01/26/192352 DD/ 52 TD/TT: - Differential Diagnosis ACS, A. fib with RVR, pericarditis, GERD Critical care attestation.: If time is entered above; I have spent that time in minutes in the direct care of this critically ill patient, excluding procedure time. ED Disposition Clinical Impression: Chest pain, A-fib, Palpitations Disposition: 09 OP ADMIT IP TO THIS HOSP Is pt being admited?: Yes Does the pt Need Aspirin: Yes Condition: Fair Instructions: Chest Pain (ED) Time of Disposition: 01:42 (hospitalist paged (Dr Niharika Juarez))
--- NOTE | 2019-01-26 23:58 | XRay Report ---
CHEST 1 VIEW INDICATION / CLINICAL INFORMATION: Chest Pain. COMPARISON: 01/12/2019 FINDINGS: SUPPORT DEVICES: None. HEART / MEDIASTINUM: Stable mild enlargement of the cardiac mediastinal silhouette LUNGS / PLEURA: No significant pulmonary or pleural abnormality. No pneumothorax. ADDITIONAL FINDINGS: No significant additional findings. IMPRESSION: 1. No acute findings. 2. Stable cardiomegaly. Signer Name: Murtaza Lozano MD Signed: 01/26/2019 11:53 PM Workstation Name: [id number]
[2019-01-27] LABS: Eosinophils # (Auto) 0.1 K/mm3 (0.0-0.4); Eosinophils % (Auto) 4.1 % (0.0-4.3); Hemoglobin 10.4 gm/dl (11.8-15.2); Monocytes # (Auto) 0.4 K/mm3 (0.0-0.8); Monocytes % (Auto) 10.9 % (0.0-7.3); Red Blood Count 4.45 M/mm3 (3.65-5.03)
[2019-01-27 00:26] LABS: Basophils % (Auto) 0.8 % (0.0-1.8); Hematocrit 33.2 % (35.5-45.6); Lymphocytes # (Auto) 1.2 K/mm3 (1.2-5.4); Lymphocytes % (Auto) 32.5 % (13.4-35.0); Mean Corpuscular HGB Conc 31 % (32-34); Mean Corpuscular Volume 75 fl (84-94); Platelet Count 146 K/mm3 (140-440)
[2019-01-27 00:43] LABS: Red Cell Distribution Width 21.3 % (13.2-15.2)
[2019-01-27 00:54] LABS: BUN/Creatinine Ratio 11; Blood Urea Nitrogen 14 mg/dL (9-20); Calcium 8.7 mg/dL (8.4-10.2); Hemolysis Index 1
[2019-01-27 01:16] LABS: INR 1.24 (0.87-1.13)
[2019-01-27 01:17] LABS: Partial Thromboplastin Time 33.4 Sec. (24.2-36.6)
[2019-01-27] MEDS ORDERED: ASPIRIN 325 MG TAB PO ONE (01:43)
[2019-01-27] MEDS ORDERED: ONDANSETRON 4 MG/2 ML INJ IV PRN (01:57)
[2019-01-27] MEDS ORDERED: ACETAMINOPHEN 325 MG TAB PO PRN (01:57)
[2019-01-27] MEDS ORDERED: DEXTROSE 50% IN WATER (25GM) 50 ML SYRINGE IV PRN (04:53)
[2019-01-27] MEDS ORDERED: MORPHINE 2 MG/1 ML INJ IV PRN (04:53)
[2019-01-27] MEDS ORDERED: NITROGLYCERIN 0.4 MG TAB SUBL SL PRN (04:53)
[2019-01-27] MEDS ORDERED: ALBUTEROL 2.5 MG/3 ML NEBU IH PRN (04:53)
[2019-01-27] MEDS ORDERED: oxyCODONE /ACETAMINOPHEN 5-325MG TAB PO PRN (04:56)
--- NOTE | 2019-01-27 05:10 | History and Physical Report ---
<RICARDO VILLAREAL - Last Filed: 01/27/19 05:11> History of Present Illness Date of examination: 01/27/19 Date of admission: 01/27/2019 Chief complaint: Chest tightness, palpitations History of present illness: 68-year-old -[place] male with history of atrial fibrillation rate control, BPH, DVT (BLE), PE (bilateral lungs), CHF with EF 25-30%, kidney stones, insulin-dependent diabetes with neuropathy, COPD, GERD, hypertension and gout since [facility] ED with complaints of nonradiating chest pain and palpitations. States that he started experiencing palpitations and felt like his heart was beating really fast. He has a pulse ox at home and decided to check his heart rate and it was in the 110s. As the day progressed he began experiencing in chest tightness with intermittent mild shortness of breath. Both chest tightness and some breath improved with rest. Patient states that this is the first time he's experienced these symptoms and would like to know why it continues. He denies nausea, vomiting, diaphoresis. He decided to come in for further evaluation. A review of medical records shows patient was previously admitted on 01/13 with similar complaints. He was seen by cardiology and adjustments were made to his home medications. Past History Past Medical History: anemia, CAD, COPD, diabetes (insulin-dependent), DVT (bila teral lower extremity), GERD, heart failure, hypertension, pulmonary embolism (both lungs), other (gallop) Past Surgical History: Other ( neck and back surgery (2011)) Social history: other (former smoker quit 10 years ago, smoked for 50 years) Family history: CAD Medications and Allergies Allergies Allergy/AdvReac Type Severity Reaction Status Date / Time No Known Allergies Allergy Verified 05/05/18 23:54 Home Medications Medication Instructions Recorded Confirmed Last Taken Type predniSONE [Deltasone] 20 mg PO QDAY #7 tablet 09/28/18 01/27/19 01/12/19 Rx Insulin Aspart [NovoLOG 100 5 units SUB-Q TIDAC #90 11/04/18 01/27/19 Unknown Rx UNITS/ML VIAL] Insulin Glargine [Lantus VIAL] 10 units SUB-Q QHS #30 11/04/18 01/27/19 Unknown Rx Ipratropium/Albuterol Sulfate 1 puff IH BID #1 11/04/18 01/27/19 Unknown Rx [Combivent Respimat] Apixaban [Eliquis] 5 mg PO Q12HR #60 tablet 01/15/19 01/27/19 Unknown Rx Carvedilol [Coreg] 25 mg PO BID #60 tablet 01/15/19 01/27/19 Unknown Rx Colchicine 0.6 mg PO QDAY #30 capsule 01/15/19 01/27/19 Unknown Rx Lisinopril [Zestril TAB] 2.5 mg PO QDAY #30 tablet 01/15/19 01/27/19 Unknown Rx Pregabalin [Lyrica] 50 mg PO BID #60 cap 01/15/19 01/27/19 Unknown Rx Tamsulosin [Flomax] 0.4 mg PO QDAY #30 cap 01/15/19 01/27/19 Unknown Rx oxyCODONE /ACETAMINOPHEN [Percocet 1 tab PO Q6H PRN #12 tablet 01/15/19 01/27/19 Unknown Rx 5/325 mg] Active Meds: Active Medications Acetaminophen (Tylenol) 650 mg PO Q4H PRN PRN Reason: Pain MILD(1-3)/Fever >100.5/LOPEZ Albuterol (Proventil) 2.5 mg IH Q3HRT PRN PRN Reason: Shortness Of Breath Apixaban (Eliquis) 5 mg PO Q12HR [facility]; Protocol Atorvastatin Calcium (Lipitor) 40 mg PO QHS [facility] Carvedilol (Coreg) 25 mg PO BID [facility] Colchicine (Colchicine) 0.6 mg PO QDAY [facility] Dextrose (D50w (25gm) Syringe) 50 ml IV PRN PRN PRN Reason: Hypoglycemia Insulin Glargine (Lantus) 10 units SUB-Q QHS [facility] Insulin Human Lispro (Humalog) 0 unit SUB-Q Q6HR [facility]; Protocol Lisinopril (Zestril) 2.5 mg PO QDAY [facility] Miscellaneous Medication (Pregabalin [Lyrica]) 50 mg PO BID [facility] Morphine Sulfate (Morphine) 2 mg IV Q4H PRN PRN Reason: Pain, Moderate (4-6) Nitroglycerin (Nitrostat) 0.4 mg SL Q5M PRN PRN Reason: Chest Pain Ondansetron HCl (Zofran) 4 mg IV Q8H PRN PRN Reason: Nausea And Vomiting Oxycodone/Acetaminophen (Percocet 5/325) 1 tab PO Q6H PRN PRN Reason: Pain, Moderate (4-6) Sodium Chloride (Sodium Chloride Flush Syringe 10 Ml) 10 ml IV BID JERRY Sodium Chloride (Sodium Chloride Flush Syringe 10 Ml) 10 ml IV PRN PRN PRN Reason: LINE FLUSH Tamsulosin HCl (Flomax) 0.4 mg PO QDAY JERRY Review of Systems All systems: negative Cardiovascular: chest pain, palpitations Exam - Physical Exam Narrative exam: General appearance: Present: No acute distress, alert and oriented 3, well- developed, older adult male - EENT Eyes: Present: PERRL, EOM intact ENT: hearing intact, missing teeth - Neck Neck: Present: supple, normal ROM - Respiratory Respiratory effort: Non-labored Respiratory: bilateral: CTA with diminished bases bilaterally - Cardiovascular Heart rate:92 (bpm) Rhythm: Atrial fibrillation Heart Sounds: Present: S1, S2 - Extremities Extremities: no ischemia, pulses intact - Peripheral Assessment Peripheral Pulses: within normal limits - Abdominal General gastrointestinal: soft, non-tender, normal bowel sounds - Integumentary Integumentary: Present: warm, dry - Musculoskeletal Musculoskeletal: able to move all extremities -Neurological Neurological: CN II-XII grossly intact - Psychiatric Psychiatric: cooperative - Constitutional Vitals: Temp Pulse Resp BP Pulse Ox 98 F 92 H 28 H 146/94 97 01/26/19 23:06 01/27/19 03:30 01/27/19 03:30 01/27/19 03:30 01/27/19 03:30 Results - Labs CBC & Chem 7: 01/26/19 23:23 01/26/19 23:23 Labs: Laboratory Last Values WBC 3.6 K/mm3 (4.5-11.0) L 01/26/19 23:23 RBC 4.45 M/mm3 (3.65-5.03) 01/26/19 23:23 Hgb 10.4 gm/dl (11.8-15.2) L 01/26/19 23:23 Hct 33.2 % (35.5-45.6) L 01/26/19 23:23 MCV 75 fl (84-94) L 01/26/19 23:23 MCH 23 pg (28-32) L 01/26/19 23:23 MCHC 31 % (32-34) L 01/26/19 23:23 RDW 21.3 % (13.2-15.2) H 01/26/19 23:23 Plt Count 146 K/mm3 (140-440) 01/26/19 23:23 Lymph % (Auto) 32.5 % (13.4-35.0) 01/26/19 23:23 [place] % (Auto) 10.9 % (0.0-7.3) H 01/26/19 23:23 Eos % (Auto) 4.1 % (0.0-4.3) 01/26/19 23:23 Baso % (Auto) 0.8 % (0.0-1.8) 01/26/19 23:23 Lymph # 1.2 K/mm3 (1.2-5.4) 01/26/19 23:23 [place] # 0.4 K/mm3 (0.0-0.8) 01/26/19 23:23 Eos # 0.1 K/mm3 (0.0-0.4) 01/26/19 23:23 Baso # 0.0 K/mm3 (0.0-0.1) 01/26/19 23:23 Seg Neutrophils % 52.0 % (40.0-70.0) 01/26/19 23:23 Seg Neutrophils # 1.9 K/mm3 (1.8-7.7) 01/26/19 23:23 PT 15.3 Sec. (12.2-14.9) H 01/27/19 00:27 INR 1.24 (0.87-1.13) H 01/27/19 00:27 APTT 33.4 Sec. (24.2-36.6) 01/27/19 00:27 Sodium 147 mmol/L (137-145) H 01/26/19 23:23 Potassium 4.7 mmol/L (3.6-5.0) 01/26/19 23:23 Chloride 110.2 mmol/L (98-107) H 01/26/19 23:23 Carbon Dioxide 28 mmol/L (22-30) 01/26/19 23:23 Anion Gap 14 mmol/L 01/26/19 23:23 BUN 14 mg/dL (9-20) 01/26/19 23:23 Creatinine 1.3 mg/dL (0.8-1.5) 01/26/19 23:23 Estimated GFR > 60 ml/min 01/26/19 23:23 BUN/Creatinine Ratio 11 % 01/26/19 23:23 Glucose 93 mg/dL (75-100) 01/26/19 23:23 Calcium 8.7 mg/dL (8.4-10.2) 01/26/19 23:23 Troponin T < 0.010 ng/mL (0.00-0.029) 01/26/19 23:23 - Imaging and Cardiology Imaging and Cardiology: CXR: FINDINGS: SUPPORT DEVICES: None. HEART / MEDIASTINUM: Stable mild enlargement of the cardiac mediastinal silhouette LUNGS / PLEURA: No significant pulmonary or pleural abnormality. No pneumothorax. ADDITIONAL FINDINGS: No significant additional findings. IMPRESSION: 1. No acute findings. 2. Stable cardiomegaly. Assessment and Plan Assessment and plan: 68-year-old -[place] male with history of atrial fibrillation rate control, BPH, DVT (BLE), PE (bilateral lungs), CHF with EF 25-30%, kidney stones, insulin-dependent diabetes with neuropathy, COPD, GERD, hypertension and gout since [facility] ED with complaints of nonradiating chest pain and palpitations. Will admit as OBS for further evaluation. Acute Chest Pain R/O ACS -EKG revealed for acute ischemic abnormalities -CXR shows stable cardiomegaly no acute abnormalities noted -Initiate chest pain protocol -Continuous telemetry monitoring -Continue supportive care -Pain mgmt -Troponin negative x 1, will continue to trend -On ASA and Statin -Will defer further cardiac work up per cardiology recommendations -Cardiology consulted Atrial fibrillation -Anticoagulated on Eliquis -Rate controlled CHF -Ejection fraction 25-30% seen on echo done on 09/2018 -Lexiscan negative for ischemia (10/2018) -Continue heart failure meds Insulin-dependent diabetes -POC BG monitoring -SSI coverage and scheduled Lantus HTN -Monitor BP -Resume home antihypertensive meds COPD -Albuterol when necessary -Schedule Pulmicort Hx BLE DVT -On Eliquis HX PE -Bilateral Lungs -On Eliquis DVT PPX -On Eliquis -SCD's Advance Directives: No VTE prophylaxis?: Chemical Plan of care discussed with patient/family: Yes <BENITO MILLIGAN - Last Filed: 01/27/19 06:30> History of Present Illness Date of admission: 01/27/19 01:57 Medications and Allergies Active Meds: Active Medications Acetaminophen (Tylenol) 650 mg PO Q4H PRN PRN Reason: Pain MILD(1-3)/Fever >100.5/LOPEZ Albuterol (Proventil) 2.5 mg IH Q3HRT PRN PRN Reason: Shortness Of Breath Apixaban (Eliquis) 5 mg PO Q12HR [facility]; Protocol Atorvastatin Calcium (Lipitor) 40 mg PO QHS JERR[facility] Budesonide (Pulmicort) 0.5 mg IH Q12HRT [facility] Carvedilol (Coreg) 25 mg PO BID [facility] Colchicine (Colchicine) 0.6 mg PO QDAY [facility] Dextrose (D50w (25gm) Syringe) 50 ml IV PRN PRN PRN Reason: Hypoglycemia Insulin Glargine (Lantus) 10 units SUB-Q QHS [facility] Insulin Human Lispro (Humalog) 0 unit SUB-Q ACHS [facility]; Protocol Lisinopril (Zestril) 2.5 mg PO QDAY [facility] Morphine Sulfate (Morphine) 2 mg IV Q4H PRN PRN Reason: Pain, Moderate (4-6) Nitroglycerin (Nitrostat) 0.4 mg SL Q5M PRN PRN Reason: Chest Pain Ondansetron HCl (Zofran) 4 mg IV Q8H PRN PRN Reason: Nausea And Vomiting Oxycodone/Acetaminophen (Percocet 5/325) 1 tab PO Q6H PRN PRN Reason: Pain, Moderate (4-6) Pneumococcal Polyvalent Vaccine (Pneumovax 23) 0.5 ml IM .ONCE ONE Stop: 01/27/19 12:01 Pregabalin (Pregabalin) 50 mg PO BID [facility] Sodium Chloride (Sodium Chloride Flush Syringe 10 Ml) 10 ml IV BID [facility] Sodium Chloride (Sodium Chloride Flush Syringe 10 Ml) 10 ml IV PRN PRN PRN Reason: LINE FLUSH Tamsulosin HCl (Flomax) 0.4 mg PO QDAY [facility] Exam - Constitutional Vitals: Temp Pulse Resp BP Pulse Ox 98.0 F 95 H 18 162/96 95 01/27/19 05:05 01/27/19 05:05 01/27/19 05:05 01/27/19 05:05 01/27/19 05:05 Results - Labs CBC & Chem 7: 01/26/19 23:23 01/26/19 23:23 Labs: Laboratory Last Values WBC 3.6 K/mm3 (4.5-11.0) L 01/26/19 23:23 RBC 4.45 M/mm3 (3.65-5.03) 01/26/19 23:23 Hgb 10.4 gm/dl (11.8-15.2) L 01/26/19 23:23 Hct 33.2 % (35.5-45.6) L 01/26/19 23:23 MCV 75 fl (84-94) L 01/26/19 23:23 MCH 23 pg (28-32) L 01/26/19 23:23 MCHC 31 % (32-34) L 01/26/19 23:23 RDW 21.3 % (13.2-15.2) H 01/26/19 23:23 Plt Count 146 K/mm3 (140-440) 01/26/19 23:23 Lymph % (Auto) 32.5 % (13.4-35.0) 01/26/19 23:23 [place] % (Auto) 10.9 % (0.0-7.3) H 01/26/19 23:23 Eos % (Auto) 4.1 % (0.0-4.3) 01/26/19 23:23 Baso % (Auto) 0.8 % (0.0-1.8) 01/26/19 23:23 Lymph # 1.2 K/mm3 (1.2-5.4) 01/26/19 23:23 [place] # 0.4 K/mm3 (0.0-0.8) 01/26/19 23:23 Eos # 0.1 K/mm3 (0.0-0.4) 01/26/19 23:23 Baso # 0.0 K/mm3 (0.0-0.1) 01/26/19 23:23 Seg Neutrophils % 52.0 % (40.0-70.0) 01/26/19 23:23 Seg Neutrophils # 1.9 K/mm3 (1.8-7.7) 01/26/19 23:23 PT 15.3 Sec. (12.2-14.9) H 01/27/19 00:27 INR 1.24 (0.87-1.13) H 01/27/19 00:27 APTT 33.4 Sec. (24.2-36.6) 01/27/19 00:27 Sodium 147 mmol/L (137-145) H 01/26/19 23:23 Potassium 4.7 mmol/L (3.6-5.0) 01/26/19 23:23 Chloride 110.2 mmol/L (98-107) H 01/26/19 23:23 Carbon Dioxide 28 mmol/L (22-30) 01/26/19 23:23 Anion Gap 14 mmol/L 01/26/19 23:23 BUN 14 mg/dL (9-20) 01/26/19 23:23 Creatinine 1.3 mg/dL (0.8-1.5) 01/26/19 23:23 Estimated GFR > 60 ml/min 01/26/19 23:23 BUN/Creatinine Ratio 11 % 01/26/19 23:23 Glucose 93 mg/dL (75-100) 01/26/19 23:23 Calcium 8.7 mg/dL (8.4-10.2) 01/26/19 23:23 Troponin T < 0.010 ng/mL (0.00-0.029) 01/26/19 23:23 Assessment and Plan Assessment and plan: 68-year-old man with a history of hypertension, coronary artery disease, A. fib, diabetes with neuropathy comes emergency room with complaints of chest pain that started yesterday describes a tightness intermittent every 5 minutes. Patient had a stress test in October which was negative for ischemia. Agree with cardiology consult
[2019-01-27] MEDS ORDERED: INSULIN LISPRO 100 UNIT/ML SUB-Q SCH (06:00)
[2019-01-27] MEDS: BUDESONIDE 0.5 MG/2 ML NEBU IH SCH ×2 (07:35→20:55)
[2019-01-27] MEDS: INSULIN LISPRO 100 UNIT/ML SUB-Q SCH ×4 (08:20→21:02)
[2019-01-27] MEDS ORDERED: CARVEDILOL 25 MG TAB PO SCH (10:00)
[2019-01-27] MEDS ORDERED: LISINOPRIL 5 MG TAB PO SCH ×2 (10:00→11:09)
[2019-01-27] MEDS ORDERED: PREGABALIN 50 MG PO SCH (10:00)
--- NOTE | 2019-01-27 11:01 | Consultation ---
History of Present Illness Consult date: 01/27/19 Requesting physician: RICARDO VILLAREAL Consult reason: atrial fibrillation, congestive heart failure, hypertension History of present illness: The pt is a 68 YO male with a past medical history of persistent atrial fibri llation, DVT and PE, anticoagulated with Eliquis, CMP, HFrEF, HTN, DM, HLP, COPD, gout, ? recent C.Diff infection. He has been seen by our practice on prior admissions and is regularly followed by [place] [facility]ology. He presented with c/o SOB, BLE swelling and palpitations for the past several days. He states that he knows his "AFib is going too fast". He has been monitoring his HR at home via his home blood pressure cuff. He reports a HR max of 110 at home. He denies any chest pain, n/v, diaphoresis, dizziness or syncope. He reports full compliance with his home medication regimen, including Eliquis and coreg. On evaluation, he remains in AFib with HR 100s. Lexiscan MPI stress test done 10/2018 was negative for ischemia, EF 29%. Echo done 09/2018 showed EF 25-30%, impaired relaxation, mild to mod MR, trace TR, mild NV. Past History Past Medical History: atrial fib, anemia, COPD, diabetes (insulin-dependent), DVT (bilateral lower extremity), GERD, heart failure, hypertension, pulmonary embolism (both lungs), other (gallop) Past Surgical History: Other ( neck and back surgery (2011)) Social history: other (former smoker quit 10 years ago, smoked for 50 years) Family history: CAD Medications and Allergies Allergies Allergy/AdvReac Type Severity Reaction Status Date / Time No Known Allergies Allergy Verified 05/05/18 23:54 Home Medications Medication Instructions Recorded Confirmed Last Taken Type predniSONE [Deltasone] 20 mg PO QDAY #7 tablet 09/28/18 01/27/19 01/12/19 Rx Insulin Aspart [NovoLOG 100 5 units SUB-Q TIDAC #90 11/04/18 01/27/19 Unknown Rx UNITS/ML VIAL] Insulin Glargine [Lantus VIAL] 10 units SUB-Q QHS #30 11/04/18 01/27/19 Unknown Rx Ipratropium/Albuterol Sulfate 1 puff IH BID #1 11/04/18 01/27/19 Unknown Rx [Combivent Respimat] Apixaban [Eliquis] 5 mg PO Q12HR #60 tablet 01/15/19 01/27/19 Unknown Rx Carvedilol [Coreg] 25 mg PO BID #60 tablet 01/15/19 01/27/19 Unknown Rx Colchicine 0.6 mg PO QDAY #30 capsule 01/15/19 01/27/19 Unknown Rx Lisinopril [Zestril TAB] 2.5 mg PO QDAY #30 tablet 01/15/19 01/27/19 Unknown Rx Pregabalin [Lyrica] 50 mg PO BID #60 cap 01/15/19 01/27/19 Unknown Rx Tamsulosin [Flomax] 0.4 mg PO QDAY #30 cap 01/15/19 01/27/19 Unknown Rx oxyCODONE /ACETAMINOPHEN [Percocet 1 tab PO Q6H PRN #12 tablet 01/15/19 01/27/19 Unknown Rx 5/325 mg] Active Meds: Active Medications Acetaminophen (Tylenol) 650 mg PO Q4H PRN PRN Reason: Pain MILD(1-3)/Fever >100.5/LOPEZ Albuterol (Proventil) 2.5 mg IH Q3HRT PRN PRN Reason: Shortness Of Breath Apixaban (Eliquis) 5 mg PO Q12HR [facility]; Protocol Atorvastatin Calcium (Lipitor) 40 mg PO QHS [facility] Budesonide (Pulmicort) 0.5 mg IH Q12HRT [facility] Last Admin: 01/27/19 07:35 Dose: 0.5 mg Documented by: Carvedilol (Coreg) 25 mg PO BID [facility] Colchicine (Colchicine) 0.6 mg PO QDAY [facility] Dextrose (D50w (25gm) Syringe) 50 ml IV PRN PRN PRN Reason: Hypoglycemia Insulin Glargine (Lantus) 10 units SUB-Q QHS [facility] Insulin Human Lispro (Humalog) 0 unit SUB-Q [facility] COUNT [facility]CLUD[facility]; Protocol Last Admin: 01/27/19 08:20 Dose: Not Given Documented by: Lisinopril (Zestril) 2.5 mg PO QDAY [facility] Morphine Sulfate (Morphine) 2 mg IV Q4H PRN PRN Reason: Pain, Moderate (4-6) Nitroglycerin (Nitrostat) 0.4 mg SL Q5M PRN PRN Reason: Chest Pain Ondansetron HCl (Zofran) 4 mg IV Q8H PRN PRN Reason: Nausea And Vomiting Oxycodone/Acetaminophen (Percocet 5/325) 1 tab PO Q6H PRN PRN Reason: Pain, Moderate (4-6) Pneumococcal Polyvalent Vaccine (Pneumovax 23) 0.5 ml IM .ONCE ONE Stop: 01/27/19 12:01 Pregabalin (Pregabalin) 50 mg PO BID JERR[facility] Sodium Chloride (Sodium Chloride Flush Syringe 10 Ml) 10 ml IV BID [facility] Sodium Chloride (Sodium Chloride Flush Syringe 10 Ml) 10 ml IV PRN PRN PRN Reason: LINE FLUSH Tamsulosin HCl (Flomax) 0.4 mg PO QDAY [facility] Review of Systems Constitutional: no fever, no chills, no sweats Ears, nose, mouth and throat: no ear pain, no nose pain, no sinus pressure, no sinus pain Cardiovascular: palpitations, rapid/irregular heart beat, edema, shortness of breath, dyspnea on exertion, leg edema, no chest pain, no orthopnea, no syncope, no lightheadedness Respiratory: shortness of breath, dyspnea on exertion, no cough, no congestion, no wheezing, no pain on inspiration Gastrointestinal: no abdominal pain, no nausea, no vomiting, no diarrhea, no constipation, no change in bowel habits Genitourinary Male: no dysuria, no hematuria, no flank pain, no discharge, no urinary frequency, no urinary hesitancy Musculoskeletal: no neck stiffness, no neck pain, no shooting arm pain, no arm numbness/tingling, no low back pain, no shooting leg pain Integumentary: no rash, no pruritis, no redness, no sores, no wounds Neurological: no head injury, no paralysis, no weakness, no parathesias, no numbness, no tingling, no seizures, no syncope Psychiatric: no anxiety Endocrine: no cold intolerance, no heat intolerance Hematologic/Lymphatic: no easy bruising, no easy bleeding Allergic/Immunologic: no urticaria, no wheezing Physical Examination Vital Signs Pulse Ox 100 01/26/19 23:03 General appearance: no acute distress HEENT: Positive: PERRL, Normocephaly, Mucus Membranes Moist Neck: Positive: neck supple, trachea midline Cardiac: Positive: irregularly irregular, S1/S2 Lungs: Positive: Decreased Breath Sounds Neuro: Positive: Grossly Intact Abdomen: Negative: Tender Skin: Negative: Rash Musculoskeletal: No Pain Extremities: Present: edema (trace BLE) Results 01/26/19 23:23 01/26/19 23:23 Coagulation 01/27/19 Range/Units 00:27 PT 15.3 H (12.2-14.9) Sec. INR 1.24 H (0.87-1.13) APTT 33.4 (24.2-36.6) Sec. CBC 01/26/19 Range/Units 23:23 WBC 3.6 L (4.5-11.0) K/mm3 RBC 4.45 (3.65-5.03) M/mm3 Hgb 10.4 L (11.8-15.2) gm/dl Hct 33.2 L (35.5-45.6) % Plt Count 146 (140-440) K/mm3 Lymph # 1.2 (1.2-5.4) K/mm3 [place] # 0.4 (0.0-0.8) K/mm3 Eos # 0.1 (0.0-0.4) K/mm3 Baso # 0.0 (0.0-0.1) K/mm3 Comprehensive Metabolic Panel 01/26/19 Range/Units 23:23 Sodium 147 H (137-145) mmol/L Potassium 4.7 (3.6-5.0) mmol/L Chloride 110.2 H (98-107) mmol/L Carbon Dioxide 28 (22-30) mmol/L BUN 14 (9-20) mg/dL Creatinine 1.3 (0.8-1.5) mg/dL Glucose 93 (75-100) mg/dL Calcium 8.7 (8.4-10.2) mg/dL - Imaging and Cardiology Echo: report reviewed (09/2018 showed EF 25-30%, impaired relaxation, mild to mod MR, trace TR, mild NV. ) EKG: report reviewed, image reviewed EKG interpretations - Telemetry EKG Rhythm: Atrial Fibrillation - EKG Supraventricular dysrhythmia: atrial fibrillation Assessment and Plan Persistent atrial fibrillation with RVR Currently in AFib with HR 100s. Optimize HR - convert coreg to lopressor and titrate as necessary. Cont home Eliquis. Acute HF with reduced EF Mild component. Initiate scheduled daily IV lasix. Cardiomyopathy - presumably nonischemic Lexiscan MPI stress test done 10/2018 was negative for ischemia, EF 29%. Echo done 09/2018 showed EF 25-30%, impaired relaxation, mild to mod MR, trace TR, mild NV. Cont lopressor and lisinopril. H/o DVT and PE Cont Eliquis. HTN Optimize BPs - convert coreg to lopressor and increase home lisinopril dosage. COPD DM HLP Cont statin. The patient has been seen in conjunction with Dr. Park who agrees with the assessment and plan of care.
--- NOTE | 2019-01-27 11:18 | Progress Note ---
Assessment and Plan Assessment and plan: Patient is a 68-year-old -[place] male with history of atrial fibrillation rate control, BPH, DVT (BLE), PE (bilateral lungs), CHF with EF 25- 30%, kidney stones, insulin-dependent diabetes with neuropathy, COPD, GERD, hypertension and gout since [facility] ED with complaints of nonradiating chest pain and palpitations * Lexiscan MPI stress test done 10/2018 was negative for ischemia, EF 29%. * Echo done 09/2018 showed EF 25-30%, impaired relaxation, mild to mod MR, trace TR, mild [place]. Acute Chest Pain R/O ACS -EKG revealed for acute ischemic abnormalities -CXR shows stable cardiomegaly no acute abnormalities noted -Initiate chest pain protocol -Continuous telemetry monitoring -Continue supportive care -Pain mgmt -Troponin negative x 1, will continue to trend -On ASA and Statin -Will defer further cardiac work up per cardiology recommendations -Cardiology consulted Atrial fibrillation -Anticoagulated on Eliquis -Rate controlled CHF -Ejection fraction 25-30% seen on echo done on 09/2018 -Lexiscan negative for ischemia (10/2018) -Continue heart failure meds Insulin-dependent diabetes -POC BG monitoring -SSI coverage and scheduled Lantus HTN -Monitor BP -Resume home antihypertensive meds COPD -Albuterol when necessary -Schedule Pulmicort Hx BLE DVT -On Eliquis HX PE -Bilateral Lungs -On Eliquis DVT PPX -On Eliquis -SCD's Prolonged inpatient services 35 minutes History Interval history: Patient was seen and examined. Follow-up on current diagnosis of chest pains. No overnight events reported to me. Patient denies any shortness breath, nausea/vomiting or severe headaches. Imaging, nursing note, chart, labs and old chart reviewed. Discussed with patient. Hospitalist Physical - Physical exam Narrative exam: Gen: WDWN, NAD, Awake, Alert, Orientated x 3 HEENT: NCAT, EOMI, PERRL, OP Clear Neck: supple, no adenopathy, no thyromegaly, no JVD CVS/Heart: irregular irregular normal S1S2, pulses present bilaterally Chest/Lungs: CTA B, Symmetrical chest expansion, good air entry bilaterally GI/Abdomen: soft, NTND, good bowel sounds, no guarding or rebound /Bladder: no suprapubic tenderness, no CVA or paraspinal tenderness Extermity/Skin: no c/c/e, no obvious rash MSK: FROM x 4 Neuro: CN 2-12 grossly intact, no new focal deficits Psych: calm - Constitutional Vitals: Temp Pulse Resp BP Pulse Ox 98.1 F 88 18 158/98 99 01/27/19 07:24 01/27/19 07:49 01/27/19 07:49 01/27/19 07:24 01/27/19 07:24 General appearance: Present: no acute distress Results - Labs CBC & Chem 7: 01/26/19 23:23 01/26/19 23:23 Labs: Laboratory Last Values WBC 3.6 K/mm3 (4.5-11.0) L 01/26/19 23:23 RBC 4.45 M/mm3 (3.65-5.03) 01/26/19 23:23 Hgb 10.4 gm/dl (11.8-15.2) L 01/26/19 23:23 Hct 33.2 % (35.5-45.6) L 01/26/19 23:23 MCV 75 fl (84-94) L 01/26/19 23:23 MCH 23 pg (28-32) L 01/26/19 23:23 MCHC 31 % (32-34) L 01/26/19 23:23 RDW 21.3 % (13.2-15.2) H 01/26/19 23:23 Plt Count 146 K/mm3 (140-440) 01/26/19 23:23 Lymph % (Auto) 32.5 % (13.4-35.0) 01/26/19 23:23 [place] % (Auto) 10.9 % (0.0-7.3) H 01/26/19 23:23 Eos % (Auto) 4.1 % (0.0-4.3) 01/26/19 23:23 Baso % (Auto) 0.8 % (0.0-1.8) 01/26/19 23:23 Lymph # 1.2 K/mm3 (1.2-5.4) 01/26/19 23:23 [place] # 0.4 K/mm3 (0.0-0.8) 01/26/19 23:23 Eos # 0.1 K/mm3 (0.0-0.4) 01/26/19 23:23 Baso # 0.0 K/mm3 (0.0-0.1) 01/26/19 23:23 Seg Neutrophils % 52.0 % (40.0-70.0) 01/26/19 23:23 Seg Neutrophils # 1.9 K/mm3 (1.8-7.7) 01/26/19 23:23 PT 15.3 Sec. (12.2-14.9) H 01/27/19 00:27 INR 1.24 (0.87-1.13) H 01/27/19 00:27 APTT 33.4 Sec. (24.2-36.6) 01/27/19 00:27 Sodium 147 mmol/L (137-145) H 01/26/19 23:23 Potassium 4.7 mmol/L (3.6-5.0) 01/26/19 23:23 Chloride 110.2 mmol/L (98-107) H 01/26/19 23:23 Carbon Dioxide 28 mmol/L (22-30) 01/26/19 23:23 Anion Gap 14 mmol/L 01/26/19 23:23 BUN 14 mg/dL (9-20) 01/26/19 23:23 Creatinine 1.3 mg/dL (0.8-1.5) 01/26/19 23:23 Estimated GFR > 60 ml/min 01/26/19 23:23 BUN/Creatinine Ratio 11 % 01/26/19 23:23 Glucose 93 mg/dL (75-100) 01/26/19 23:23 POC Glucose 112 (70-105) H 01/27/19 09:02 Calcium 8.7 mg/dL (8.4-10.2) 01/26/19 23:23 Troponin T < 0.010 ng/mL (0.00-0.029) 01/27/19 08:12 Active Medications - Current Medications Current Medications: Generic Name Dose Route Start Last Admin Trade Name Freq PRN Reason Stop Dose Admin Acetaminophen 650 mg 01/27/19 01:57 Tylenol PO Q4H PRN Pain MILD(1-3)/Fever >100.5/LOPEZ Albuterol 2.5 mg 01/27/19 04:53 Proventil IH Q3HRT PRN Shortness Of Breath Apixaban 5 mg 01/27/19 10:00 Eliquis PO Q12HR [facility] Protocol Atorvastatin Calcium 40 mg 01/27/19 22:00 Lipitor PO QHS [facility] Budesonide 0.5 mg 01/27/19 08:00 01/27/19 07:35 Pulmicort IH 0.5 mg Q12HRT [facility] Administration Colchicine 0.6 mg 01/27/19 10:00 Colchicine PO QDAY [facility] Dextrose 50 ml 01/27/19 04:53 D50w (25gm) Syringe IV PRN PRN Hypoglycemia Furosemide 40 mg 01/27/19 12:00 Lasix IV DAILY@0600 [facility] Insulin Glargine 10 units 01/27/19 22:00 Lantus SUB-Q QHS [facility] Insulin Human Lispro 0 unit 01/27/19 07:30 01/27/19 08:20 Humalog SUB-Q Not Given ACHS [facility] Protocol Lisinopril 10 mg 01/27/19 11:09 Zestril PO QDAY [facility] Metoprolol Tartrate 50 mg 01/27/19 11:07 Lopressor PO TID [facility] Morphine Sulfate 2 mg 01/27/19 04:53 Morphine IV Q4H PRN Pain, Moderate (4-6) Nitroglycerin 0.4 mg 01/27/19 04:53 Nitrostat SL Q5M PRN Chest Pain Ondansetron HCl 4 mg 01/27/19 01:57 Zofran IV Q8H PRN Nausea And Vomiting Oxycodone/Acetaminophen 1 tab 01/27/19 04:56 Percocet 5/325 PO Q6H PRN Pain, Moderate (4-6) Pneumococcal Polyvalent Vaccine 0.5 ml 01/27/19 12:00 Pneumovax 23 IM 01/27/19 12:01 .ONCE ONE Pregabalin 50 mg 01/27/19 10:00 Pregabalin PO BID [facility] Sodium Chloride 10 ml 01/27/19 10:00 Sodium Chloride Flush Syringe 10 Ml IV BID [facility] Sodium Chloride 10 ml 01/27/19 01:57 Sodium Chloride Flush Syringe 10 Ml IV PRN PRN LINE FLUSH Tamsulosin HCl 0.4 mg 01/27/19 10:00 Flomax PO QDAY [facility]
[2019-01-27] MEDS: PREGABALIN 25 MG CAP PO SCH ×2 (11:28→21:02)
[2019-01-27] MEDS: COLCHICINE 0.6 MG CAP PO SCH (11:28)
[2019-01-27] MEDS: TAMSULOSIN 0.4 MG CAP PO SCH (11:28)
[2019-01-27] MEDS: METOPROLOL TARTRATE 50 MG TAB PO SCH ×3 (11:29→21:02)
[2019-01-27] MEDS: LISINOPRIL 10 MG TAB PO SCH (11:29)
[2019-01-27] MEDS: APIXABAN 5 MG TAB PO SCH ×2 (11:39→21:01)
[2019-01-27] MEDS: FUROSEMIDE 40 MG/4 ML INJ IV SCH ×2 (12:00→18:05)
[2019-01-27] MEDS ORDERED: PNEUMOCOCCAL 23 Valent 0.5 ML VIAL IM ONE (12:00)
[2019-01-27] MEDS ORDERED: FLU VACC QUAD 2019-20 (3 YR UP)/PF 60 MCG/0.5 ML SYRINGE IM ONE (12:00)
[2019-01-27] MEDS ORDERED: POLYETHYLENE GLYCOL 3350 17 GM POWDER PO PRN (13:03)
[2019-01-27] MEDS ORDERED: INSULIN GLARGINE 100 UNITS/ML SUB-Q SCH (22:00)
[2019-01-28] MEDS: FUROSEMIDE 40 MG/4 ML INJ IV SCH (05:16)
[2019-01-28 06:04] LABS: Basophils % (Auto) 0.7 % (0.0-1.8); Eosinophils # (Auto) 0.2 K/mm3 (0.0-0.4); Eosinophils % (Auto) 3.9 % (0.0-4.3); Hematocrit 34.8 % (35.5-45.6); Hemoglobin 10.9 gm/dl (11.8-15.2); Lymphocytes # (Auto) 0.9 K/mm3 (1.2-5.4); Lymphocytes % (Auto) 23.1 % (13.4-35.0); Mean Corpuscular HGB Conc 32 % (32-34); Mean Corpuscular Volume 75 fl (84-94); Monocytes # (Auto) 0.4 K/mm3 (0.0-0.8); Monocytes % (Auto) 9.1 % (0.0-7.3); Platelet Count 138 K/mm3 (140-440); Red Blood Count 4.67 M/mm3 (3.65-5.03)
[2019-01-28 06:05] LABS: Red Cell Distribution Width 21.2 % (13.2-15.2)
[2019-01-28 06:36] LABS: BUN/Creatinine Ratio 10; Blood Urea Nitrogen 13 mg/dL (9-20); Calcium 8.9 mg/dL (8.4-10.2); Hemolysis Index 8
[2019-01-28] MEDS: BUDESONIDE 0.5 MG/2 ML NEBU IH SCH (08:35)
--- NOTE | 2019-01-28 10:46 | Discharge Summary ---
Providers - Providers Date of Admission: 01/27/19 01:57 Date of discharge: 01/28/19 Attending physician: RADHA SMALLS 01/27/19 Consult to Cardiac Rehabilitation [CONS] Routine Reason For Exam: Phase I 01/27/19 06:39 Consult to Physician [CONS] Routine Comment: Consulting Provider: BETITO MUÑIZ Physician Instructions: Reason For Exam: CP, hx HTN, CHF EF 30%, est pt Primary care physician: [facility] Hospitalization Condition: Good Pertinent studies: A ship presented with atrial fibrillation rapid ventricular rate. Hospital course: Patient 68 years old with a history of atrial fibrillation, pulmonary embolism 2 on Eliquis. Hypertension diabetes COPD presented with shortness of breath and atrial fibrillation with rapid ventricular rate. Patient was admitted without chest pain shortness of breath was minimal chest x-ray unremarkable. Patient edema was not secondary to CHF now secondary to gout exacerbation and was in the joints. Patient had recent echo with ejection fraction of 29% Lexiscan ejection fraction 29%. Patient stable without any shortness of breath regarding chest pain without any lower extremity edema stable for discharge. Patient's rate was optimized with the change from Coreg to Lopressor. Patient pulse was greater than 110-120 with Coreg now 81 and maximum heart rate is 90. Patient stable to discharge her to follow with cardiology outpatient at the [facility]. Patient well informed and understands his workup all questions or concerns answered to patient's satisfaction. Disposition: - TO HOME OR SELFCARE - Discharge Diagnoses (1) Atrial fibrillation Status: Chronic (2) Acute HFrEF (heart failure with reduced ejection fraction) Status: Acute (3) Gout Status: Acute (4) Permanent atrial fibrillation with RVR Status: Acute (5) COPD (chronic obstructive pulmonary disease) Status: Chronic Qualifiers: COPD type: unspecified COPD Qualified Code(s): J44.9 - Chronic obstructive pulmonary disease, unspecified (6) Diabetes Status: Chronic Core Measure Documentation - Palliative Care Palliative Care/ Comfort Measures: Not Applicable - Core Measures Any of the following diagnoses?: none - Heart Failure Discharge Requirements ADRIAN/ARB for LVSD if EF <40%: Yes Beta elena at discharge: Yes Exam - Constitutional Vitals: Temp Pulse Resp BP Pulse Ox 97.6 F 91 H 18 104/77 98 01/28/19 07:24 01/28/19 07:24 01/28/19 07:24 01/28/19 07:24 01/28/19 07:24 General appearance: Present: no acute distress, well-nourished - EENT Eyes: Present: PERRL ENT: hearing intact, clear oral mucosa - Neck Neck: Present: supple, normal ROM - Respiratory Respiratory effort: normal Respiratory: bilateral: CTA - Cardiovascular Heart Sounds: Present: S1 & S2. Absent: rub, click - Extremities Extremities: pulses symmetrical, No edema Peripheral Pulses: within normal limits - Abdominal General gastrointestinal: Present: soft, non-tender, non-distended, normal bowel sounds Male genitourinary: Present: normal - Integumentary Integumentary: Present: clear, warm, dry - Musculoskeletal Musculoskeletal: gait normal, strength equal bilaterally - Psychiatric Psychiatric: appropriate mood/affect, intact judgment & insight - Neurologic Neurologic: CNII-XII intact, moves all extremities Plan Activity: no restrictions Weight Bearing Status: Full Weight Bearing Diet: low cholesterol, diabetic Follow up with: [facility] [Primary Care Provider] - 7 Days Prescriptions: Colchicine 0.6 mg PO QDAY #30 capsule Ipratropium/Albuterol Sulfate [Combivent Respimat] 1 puff IH BID #1 predniSONE [Deltasone] 20 mg PO QDAY #7 tablet Apixaban [Eliquis] 5 mg PO Q12HR #60 tablet Tamsulosin [Flomax] 0.4 mg PO QDAY #30 capsule AtorvaSTATin [Lipitor] 40 mg PO QHS #30 tablet Metoprolol [Lopressor TAB] 50 mg PO TID #90 tablet Polyethylene Glycol 3350 [Miralax 3350] 17 gm PO QDAY PRN #7 powd.pack PRN Reason: Constipation Insulin Aspart [NovoLOG 100 UNITS/ML VIAL] 5 units SUB-Q TIDAC #90 units oxyCODONE /ACETAMINOPHEN [Percocet 5/325 mg] 1 tab PO Q6H PRN #20 tablet PRN Reason: Pain, Moderate (4-6) Pregabalin 50 mg PO BID #60 capsule Lisinopril [Zestril TAB] 2.5 mg PO QDAY #30 tablet
--- NOTE | 2019-01-28 10:49 | Progress Note ---
Assessment and Plan Chronic atrial fibrillation with RVR --> CVR HR improved since conversion of coreg to lopressor. Cont lopressor and Eliquis. Acute HF with reduced EF Mild component. Nearing/at euvolemia. D/c IV lasix. Cardiomyopathy - presumably nonischemic Lexiscan MPI stress test done 10/2018 was negative for ischemia, EF 29%. Echo done 09/2018 showed EF 25-30%, impaired relaxation, mild to mod MR, trace TR, mild [place]. Cont lopressor and lisinopril. H/o DVT and PE Cont Eliquis. HTN Stable. COPD DM HLP Cont statin. Currently stable cardiac status. Pt may discharge home from cardiology standi nt on current cardiac regimen. Recommend pt follow up with [facility] cardiology within 3-5 days of discharge. Pt verbalizes understanding. The patient has been seen in conjunction with Dr. Park who agrees with the assessment and plan of care. Subjective Date of service: 01/28/19 Principal diagnosis: AFib; HF Interval history: pt resting in bed, states he is feeling much better. c/o dry mouth. in AFib with HR 80s - 90s on telemetry. Objective Last Vital Signs Temp 97.6 F 01/28/19 07:24 Pulse 91 H 01/28/19 07:24 Resp 18 01/28/19 07:24 BP 104/77 01/28/19 07:24 Pulse Ox 98 01/28/19 07:24 - Physical Examination HEENT: Positive: PERRL, Normocephaly, Mucus Membranes Moist Neck: Positive: neck supple, trachea midline Cardiac: Positive: Regular Rate, irregularly irregular, S1/S2 Lungs: Positive: clear to auscultation Neuro: Positive: Grossly Intact Abdomen: Negative: Tender Skin: Negative: Rash Musculoskeletal: No Pain Extremities: Absent: edema - Labs and Meds CBC 01/28/19 Range/Units 04:17 WBC 4.0 L (4.5-11.0) K/mm3 RBC 4.67 (3.65-5.03) M/mm3 Hgb 10.9 L (11.8-15.2) gm/dl Hct 34.8 L (35.5-45.6) % Plt Count 138 L (140-440) K/mm3 Lymph # 0.9 L (1.2-5.4) K/mm3 [place] # 0.4 (0.0-0.8) K/mm3 Eos # 0.2 (0.0-0.4) K/mm3 Baso # 0.0 (0.0-0.1) K/mm3 Comprehensive Metabolic Panel 01/28/19 Range/Units 04:17 Sodium 146 H (137-145) mmol/L Potassium 4.1 (3.6-5.0) mmol/L Chloride 105.6 (98-107) mmol/L Carbon Dioxide 26 (22-30) mmol/L BUN 13 (9-20) mg/dL Creatinine 1.3 (0.8-1.5) mg/dL Glucose 85 (75-100) mg/dL Calcium 8.9 (8.4-10.2) mg/dL - Imaging and Cardiology EKG: report reviewed, image reviewed Echo: report reviewed (09/2018 showed EF 25-30%, impaired relaxation, mild to mod MR, trace TR, mild [place]. ) - Telemetry EKG Rhythm: Atrial Fibrillation
[2019-01-28] MEDS: INSULIN LISPRO 100 UNIT/ML SUB-Q SCH (11:07)
[2019-01-28] MEDS: METOPROLOL TARTRATE 50 MG TAB PO SCH (11:08)
[2019-01-28] MEDS: APIXABAN 5 MG TAB PO SCH (11:09)
[2019-01-28] MEDS: PREGABALIN 25 MG CAP PO SCH (11:09)
[2019-01-28] MEDS: LISINOPRIL 10 MG TAB PO SCH (11:10)
[2019-01-28] MEDS: COLCHICINE 0.6 MG CAP PO SCH (11:10)
[2019-01-28] MEDS: TAMSULOSIN 0.4 MG CAP PO SCH (11:10)
[2019-01-28 15:48] VITALS: BP 108/75
== END 2019-01-28 17:01 | disposition home or self-care (01) ==
LOC: ED 22:54 → 4A 01-27 01:57
PROVIDERS: ADMIT Internal Medicine; ATTEND Internal Medicine
DX: R07.89 Other chest pain (principal); I48.91 Unspecified atrial fibrillation; R00.2 Palpitations; I11.0 Hypertensive heart disease with heart failure; I50.9 Heart failure, unspecified; E11.9 Type 2 diabetes mellitus without complications; J44.9 Chronic obstructive pulmonary disease, unspecified; M10.9 Gout, unspecified; D64.9 Anemia, unspecified; K21.9 Gastro-esophageal reflux disease without esophagitis; Z79.4 Long term (current) use of insulin; Z86.718 Personal history of other venous thrombosis and embolism; Z86.711 Personal history of pulmonary embolism; Z87.891 Personal history of nicotine dependence; Z98.890 Other specified postprocedural states; Z87.442 Personal history of urinary calculi; Z23 Encounter for immunization
CPT/HCPCS: 36415; 71045; 80048; 82962; 84484; 85025; 85610; 85730; 90471; 90686; 90732; 93005; 93010; 94640; 96374; 96375; 96376; 99284; A9270; G0378; J1940; J2405; J1815

== ENCOUNTER 2019-02-20 05:20 | Emergency (ER) | payer MEDICARE ==
[2019-02-20] MEDS ORDERED: ASPIRIN 325 MG TAB PO ONE (05:41)
[2019-02-20] MEDS ORDERED: dilTIAZem 25 MG/5 ML INJ IV ONE ×2 (05:42→05:45)
--- NOTE | 2019-02-20 05:46 | Event Note ---
ED Screening Note ED Screening Note: This initial assessment/diagnostic orders/clinical plan/treatment(s) is/are subject to change based on patients health status, clinical progression and re- assessment by fellow clinical providers in the ED. Further treatment and workup at subsequent clinical providers discretion. Patient/guardian urged not to elope from the ED as their condition may be serious if not clinically assessed and managed. Is a 68-year-old Kristen male with past medical history of hypertension and atrial fibrillation who takes atenolol for rate control. Patient is presenting with chest discomfort and shortness of breath. Patient states that his medications were not helping with the rapid heart rate. Initial orders include: A cardiac workup including BNP. Diltiazem been ordered and patient placed on oxygen.
--- NOTE | 2019-02-20 06:24 | XRay Report ---
CHEST 1 VIEW 02/20/2019 5:48 AM INDICATION / CLINICAL INFORMATION: chest pain. COMPARISON: 01/26/19 FINDINGS: SUPPORT DEVICES: None. HEART / MEDIASTINUM: Heart is enlarged but stable. LUNGS / PLEURA: Borderline bibasilar interstitial pulmonary edema. No significant effusion. No pneumo thorax. ADDITIONAL FINDINGS: No significant additional findings. IMPRESSION: 1. Cardiomegaly with borderline interstitial edema. Signer Name: Barry Hicks MD Signed: 02/20/2019 6:20 AM Workstation Name: [id number]
[2019-02-20 06:34] LABS: INR 1.24 (0.87-1.13)
--- NOTE | 2019-02-20 06:45 | Emergency Department Report ---
ED General Adult HPI - General Chief complaint: Arrhythmia/Palpitations Stated complaint: PALPATATIONS Time Seen by Provider: 02/20/19 05:41 Source: patient, EMS Mode of arrival: Stretcher Limitations: No Limitations - History of Present Illness Initial comments: Is a 68-year-old male with a history of chronic atrial fibrillation on anticoagulation. He states his heart rate is been difficult to control the last few days. It has been racing. He is occasionally felt lightheaded but denies headache or any neurological change. He states he does not need a CAT scan and that he sat this before and it's been normal. Does not complain of chest pain. He states that he has felt short of breath particularly when he lays down flat. However at this time he states his breathing is normal. At the time of my encounter his heart rate is 60s to 70s (ventricular response). He does not complain of fever chills or cough. Denies chest pain. He did take an extra Lasix and metoprolol. He was given diltiazem prior to my arrival. -: Gradual, days(s) Improves with: none Worsens with: none Associated Symptoms: denies other symptoms - Related Data Previous Rx's Medication Instructions Recorded Last Taken Type Apixaban [Eliquis] 5 mg PO Q12HR #60 tablet 01/28/19 Unknown Rx AtorvaSTATin [Lipitor] 40 mg PO QHS #30 tablet 01/28/19 Unknown Rx Colchicine 0.6 mg PO QDAY #30 capsule 01/28/19 Unknown Rx Insulin Aspart [NovoLOG 100 5 units SUB-Q TIDAC #90 units 01/28/19 Unknown Rx UNITS/ML VIAL] Ipratropium/Albuterol Sulfate 1 puff IH BID #1 01/28/19 Unknown Rx [Combivent Respimat] Lisinopril [Zestril TAB] 2.5 mg PO QDAY #30 tablet 01/28/19 Unknown Rx Metoprolol [Lopressor TAB] 50 mg PO TID #90 tablet 01/28/19 Unknown Rx Polyethylene Glycol 3350 [Miralax 17 gm PO QDAY PRN #7 powd.pack 01/28/19 Unknown Rx 3350] Pregabalin 50 mg PO BID #60 capsule 01/28/19 Unknown Rx Tamsulosin [Flomax] 0.4 mg PO QDAY #30 capsule 01/28/19 Unknown Rx oxyCODONE /ACETAMINOPHEN [Percocet 1 tab PO Q6H PRN #20 tablet 01/28/19 Unknown Rx 5/325 mg] predniSONE [Deltasone] 20 mg PO QDAY #7 tablet 01/28/19 Unknown Rx Allergies Allergy/AdvReac Type Severity Reaction Status Date / Time No Known Allergies Allergy Verified 05/05/18 23:54 ED Review of Systems ROS: Stated complaint: PALPATATIONS Other details as noted in HPI Constitutional: denies: chills, fever Eyes: denies: eye pain, eye discharge, vision change ENT: denies: ear pain, throat pain Respiratory: shortness of breath. denies: cough, wheezing Cardiovascular: as per HPI, palpitations. denies: chest pain Endocrine: no symptoms reported Gastrointestinal: denies: abdominal pain, nausea, diarrhea Genitourinary: denies: urgency, dysuria Musculoskeletal: other (denies leg swelling or pain). denies: back pain, joint swelling, arthralgia Skin: denies: rash, lesions Neurological: denies: headache, weakness, paresthesias Psychiatric: denies: anxiety, depression Hematological/Lymphatic: denies: easy bleeding, easy bruising ED Past Medical Hx - Past Medical History Hx Hypertension: Yes Hx Congestive Heart Failure: Yes Hx Diabetes: Yes Hx Deep Vein Thrombosis: Yes (both legs) Hx Pulmonary Embolism: Yes (william lungs) Hx Kidney Stones: Yes Hx Asthma: No Hx COPD: Yes Additional medical history: neuropathy. a-fib : Chronic, persistent - Surgical History Additional Surgical History: neck and back surgery 2012 - Social History Smoking Status: Former Smoker Substance Use Type: None - Medications Home Medications: Home Medications Medication Instructions Recorded Confirmed Last Taken Type Apixaban [Eliquis] 5 mg PO Q12HR #60 tablet 01/28/19 Unknown Rx AtorvaSTATin [Lipitor] 40 mg PO QHS #30 tablet 01/28/19 Unknown Rx Colchicine 0.6 mg PO QDAY #30 capsule 01/28/19 Unknown Rx Insulin Aspart [NovoLOG 100 5 units SUB-Q TIDAC #90 units 01/28/19 Unknown Rx UNITS/ML VIAL] Ipratropium/Albuterol Sulfate 1 puff IH BID #1 01/28/19 Unknown Rx [Combivent Respimat] Lisinopril [Zestril TAB] 2.5 mg PO QDAY #30 tablet 01/28/19 Unknown Rx Metoprolol [Lopressor TAB] 50 mg PO TID #90 tablet 01/28/19 Unknown Rx Polyethylene Glycol 3350 [Miralax 17 gm PO QDAY PRN #7 powd.pack 01/28/19 Unknown Rx 3350] Pregabalin 50 mg PO BID #60 capsule 01/28/19 Unknown Rx Tamsulosin [Flomax] 0.4 mg PO QDAY #30 capsule 01/28/19 Unknown Rx oxyCODONE /ACETAMINOPHEN [Percocet 1 tab PO Q6H PRN #20 tablet 01/28/19 Unknown Rx 5/325 mg] predniSONE [Deltasone] 20 mg PO QDAY #7 tablet 01/28/19 Unknown Rx ED Physical Exam - General Limitations: No Limitations General appearance: alert, in no apparent distress - Head Head exam: Present: atraumatic - Eye Eye exam: Absent: scleral icterus - ENT ENT exam: Present: mucous membranes moist - Neck Neck exam: Present: normal inspection. Absent: tenderness, meningismus - Respiratory Respiratory exam: Present: normal lung sounds bilaterally - Cardiovascular Cardiovascular Exam: Present: regular rate, normal rhythm - GI/Abdominal GI/Abdominal exam: Present: soft, normal bowel sounds. Absent: distended, tenderness, guarding, rebound, rigid - Extremities Exam Extremities exam: Present: normal inspection, normal capillary refill. Absent: tenderness, pedal edema, joint swelling, calf tenderness - Back Exam Back exam: Present: normal inspection - Neurological Exam Neurological exam: Present: alert, oriented X3, CN II-XII intact. Absent: motor sensory deficit - Psychiatric Psychiatric exam: Present: normal affect, normal mood - Skin Skin exam: Present: warm, dry, intact, normal color. Absent: rash ED Course Vital Signs 02/20/19 02/20/19 02/20/19 05:32 05:55 05:58 Temperature 98.1 F 98.2 F Pulse Rate 101 H 99 H 98 H Respiratory 14 18 18 Rate Blood Pressure 170/103 Blood Pressure 140/78 [Right] O2 Sat by Pulse 99 98 Oximetry 02/20/19 02/20/19 02/20/19 06:00 06:11 06:16 Temperature Pulse Rate 77 Respiratory 18 20 Rate Blood Pressure 140/78 Blood Pressure [Right] O2 Sat by Pulse 99 97 Oximetry 02/20/19 02/20/19 02/20/19 06:30 06:46 07:00 Temperature Pulse Rate Respiratory Rate Blood Pressure 146/84 100/43 100/43 Blood Pressure [Right] O2 Sat by Pulse 100 98 98 Oximetry 02/20/19 02/20/19 02/20/19 07:16 07:30 08:00 Temperature Pulse Rate 79 Respiratory 14 Rate Blood Pressure 100/51 100/51 119/77 Blood Pressure [Right] O2 Sat by Pulse 98 98 100 Oximetry 02/20/19 08:12 Temperature Pulse Rate 79 Respiratory 16 Rate Blood Pressure Blood Pressure 132/75 [Right] O2 Sat by Pulse 100 Oximetry - Reevaluation(s) Reevaluation #1: Patient denies chest pain. He denies shortness of breath. His pulse oximetry will be checked on room air. His ventricular responses well controlled. He is appropriate for outpatient follow-up. 02/20/19 08:49 Reevaluation #2: Pulse ox oximetry 100% on room air. 02/20/19 08:51 ED Medical Decision Making - Lab Data Result diagrams: 02/20/19 06:10 02/20/19 07:12 Laboratory Results - last 24 hr 02/20/19 02/20/19 02/20/19 06:10 06:10 07:12 WBC 6.1 RBC 4.84 Hgb 11.4 L Hct 36.3 MCV 75 L MCH 24 L MCHC 31 L RDW 20.9 H Plt Count 146 Lymph % (Auto) [employer]aking [employer] Operator [place] % (Auto) [employer]aking [employer] Operator Eos % (Auto) [employer]aking [employer] Operator Baso % (Auto) [employer]aking [employer] Operator Lymph # [employer]aking [employer] Operator [place] # Staking Press Operator Eos # Staking [employer] Operator Baso # Staking [employer] Operator Add Manual Diff Complete Seg Neutrophils % Staking [employer] Operator Seg Neutrophils # [employer]aking [employer] Operator PT 15.5 H INR 1.24 H APTT 29.0 Sodium 143 Potassium 4.6 Chloride 104.6 Carbon Dioxide 26 Anion Gap 17 BUN 17 Creatinine 1.3 Estimated GFR > 60 BUN/Creatinine Ratio 13 Glucose 150 H Calcium 9.4 Total Bilirubin Direct Bilirubin Indirect Bilirubin AST ALT Alkaline Phosphatase Total Creatine Kinase CK-MB (CK-2) CK-MB (CK-2) Rel Index Troponin T < 0.010 NT-Pro-B Natriuret Pep 9135 H Total Protein Albumin Albumin/Globulin Ratio TSH Free T4 02/20/19 02/20/19 07:12 07:12 WBC RBC Hgb Hct MCV MCH MCHC RDW Plt Count Lymph % (Auto) [place] % (Auto) Eos % (Auto) Baso % (Auto) Lymph # [place] # Eos # Baso # Add Manual Diff Seg Neutrophils % Seg Neutrophils # PT INR APTT Sodium Potassium Chloride Carbon Dioxide Anion Gap BUN Creatinine Estimated GFR BUN/Creatinine Ratio Glucose Calcium Total Bilirubin 0.30 Direct Bilirubin < 0.2 Indirect Bilirubin 0.1 AST 16 ALT 11 Alkaline Phosphatase 88 Total Creatine Kinase 37 L CK-MB (CK-2) 1.1 CK-MB (CK-2) Rel Index 2.9 Troponin T NT-Pro-B Natriuret Pep Total Protein 7.6 Albumin 3.9 Albumin/Globulin Ratio 1.1 TSH 0.849 Free T4 1.10 - EKG Data -: EKG Interpreted by Me EKG shows normal: axis, intervals, QRS complexes, ST-T waves Rate: tachycardia - EKG Data Interpretation: other (A. fib with RVR no ischemic changes) - Radiology Data Radiology results: report reviewed, image reviewed (cardiomegaly with mild social edema) Critical care attestation.: If time is entered above; I have spent that time in minutes in the direct care of this critically ill patient, excluding procedure time. ED Disposition Clinical Impression: CHF (congestive heart failure) Qualifiers: Heart failure type: combined systolic and diastolic Heart failure chronicity: chronic Qualified Code(s): I50.42 - Chronic combined systolic (congestive) and diastolic (congestive) heart failure Disposition: TO HOME OR SELFCARE Is pt being admited?: No Does the pt Need Aspirin: No Condition: Stable Additional Instructions: Return any further problem acute change or difficulty. Close follow-up with your older adult social work specialist primary care physician is indicated. A home heart monitor wou ld be helpful to monitor your heart rate. Return as needed if you have a very fast heart rate or any acute change or problem. Continue your current medication. If you desire a local older adult social work specialist called Dr. Zaina Hawk. Referrals: PRIMARY CARE, [Primary Care Provider] - 3-5 Days usual, [place] providers [Other] - [facility] Time of Disposition: 08:49
[2019-02-20 07:22] LABS: Hematocrit 36.3 % (35.5-45.6); Hemoglobin 11.4 gm/dl (11.8-15.2); Mean Corpuscular HGB Conc 31 % (32-34); Mean Corpuscular Volume 75 fl (84-94); Platelet Count 146 K/mm3 (140-440); Red Blood Count 4.84 M/mm3 (3.65-5.03)
[2019-02-20 07:26] LABS: Red Cell Distribution Width 20.9 % (13.2-15.2)
[2019-02-20 07:56] LABS: Creatine Kinase MB 1.1 ng/mL (0.0-4.0)
[2019-02-20 07:57] LABS: BUN/Creatinine Ratio 13; Blood Urea Nitrogen 17 mg/dL (9-20); Calcium 9.4 mg/dL (8.4-10.2); Hemolysis Index 3
[2019-02-20 08:00] LABS: Alanine Aminotransferase 11 units/L (7-56); Albumin 3.9 g/dL (3.9-5)
[2019-02-20] MEDS ORDERED: ALUM-MAG HYDROXIDE-SIMETHICONE 200-200-20MG/5ML ORAL LIQD 30 ML PO ONE (08:06)
[2019-02-20 08:07] LABS: Free T4 (Free Thyroxine) 1.1 ng/dL (0.76-1.46)
[2019-02-20 08:09] LABS: Bilirubin,Direct < 0.2 mg/dL (0-0.2)
[2019-02-20 08:13] VITALS: BP 132/75
== END 2019-02-20 09:00 | disposition home or self-care (01) ==
LOC: ED 05:20
DX: I11.0 Hypertensive heart disease with heart failure (principal); I50.9 Heart failure, unspecified; E11.9 Type 2 diabetes mellitus without complications; J44.9 Chronic obstructive pulmonary disease, unspecified; Z86.718 Personal history of other venous thrombosis and embolism; Z86.711 Personal history of pulmonary embolism; Z87.891 Personal history of nicotine dependence; Z98.890 Other specified postprocedural states; Z79.4 Long term (current) use of insulin; Z79.899 Other long term (current) drug therapy
CPT/HCPCS: 36415; 71045; 80048; 80076; 82550; 82553; 83880; 84439; 84443; 84484; 85025; 85610; 85730; 93005; 93010; 96374

== ENCOUNTER 2019-08-08 20:08 | Inpatient (IN) | payer MEDICARE ==
--- NOTE | 2019-08-08 20:37 | Emergency Department Report ---
ED Shortness of Breath HPI - General Chief Complaint: Extremity Problem,Nontraumatic Stated Complaint: EDEMA IN LOWER EXTREMITIES Time Seen by Provider: 08/08/19 20:28 Source: EMS Mode of arrival: Ambulatory Limitations: Physical Limitation - History of Present Illness Initial Comments: 69-year-old male with a past medical history of PE/DVT currently on Eliquis, A. fib, CHF with EF of 25 to 30% with LifeVest recommendation as per April discharge summary, GERD, anemia, diabetes, and COPD presents to the hospital complains of worsening lower extremity edema, abdominal distention, and dyspnea exertion x3 days. Patient denies cough, fever, or chest pain. Patient states he is compliant with all his medications. Patient states that he took Lasix 5 mg but then states he does not take Lasix and instead take spironolactone 25 mg. Patient does not have his current medication list and has had several additional changes made by the [facility] since last visit here. - Related Data Previous Rx's Medication Instructions Recorded Last Taken Type Apixaban [Eliquis] 5 mg PO Q12HR #60 tablet 01/28/19 04/21/19 17:01 Rx AtorvaSTATin [Lipitor] 40 mg PO QHS #30 tablet 01/28/19 Unknown Rx Colchicine 0.6 mg PO QDAY #30 capsule 01/28/19 04/21/19 17:01 Rx Insulin Aspart (Nf) [NovoLOG 100 5 units SUB-Q TIDAC #90 units 01/28/19 04/21/19 17:01 Rx UNITS/ML VIAL] Ipratropium/Albuterol Sulfate 1 puff IH BID #1 01/28/19 04/21/19 17:01 Rx [Combivent Respimat] Metoprolol [Lopressor TAB] 50 mg PO TID #90 tablet 01/28/19 04/21/19 17:01 Rx Pregabalin 50 mg PO BID #60 capsule 01/28/19 04/21/19 17:01 Rx Tamsulosin [Flomax] 0.4 mg PO QDAY #30 capsule 01/28/19 04/21/19 17:01 Rx oxyCODONE /ACETAMINOPHEN [Percocet 1 tab PO Q6H PRN #20 tablet 01/28/19 Unknown Rx 5/325 mg] polyethylene glycoL 3350 [Miralax 17 gm PO QDAY PRN #7 powd.pack 01/28/19 Unknown Rx 3350] predniSONE [Deltasone] 20 mg PO QDAY #7 tablet 01/28/19 Unknown Rx Pantoprazole [Protonix TAB] 40 mg PO QDAY #30 tablet 04/22/19 Unknown Rx Allergies Allergy/AdvReac Type Severity Reaction Status Date / Time No Known Allergies Allergy Verified 05/05/18 23:54 ED Review of Systems ROS: Stated complaint: EDEMA IN LOWER EXTREMITIES Other details as noted in HPI Comment: All other systems reviewed and negative ED Past Medical Hx - Past Medical History Previous Medical History?: Yes Hx Hypertension: Yes Hx Congestive Heart Failure: Yes Hx Diabetes: Yes Hx Deep Vein Thrombosis: Yes (both legs) Hx Pulmonary Embolism: Yes (william lungs) Hx Kidney Stones: Yes Hx Asthma: No Hx COPD: Yes Additional medical history: neuropathy. a-fib : Chronic, persistent gout - Surgical History Past Surgical History?: Yes Additional Surgical History: neck and back surgery 2011 - Social History Smoking Status: Former Smoker Substance Use Type: None - Medications Home Medications: Home Medications Medication Instructions Recorded Confirmed Last Taken Type Apixaban [Eliquis] 5 mg PO Q12HR #60 tablet 01/28/19 04/21/19 04/21/19 17:01 Rx AtorvaSTATin [Lipitor] 40 mg PO QHS #30 tablet 01/28/19 04/21/19 Unknown Rx Colchicine 0.6 mg PO QDAY #30 capsule 01/28/19 04/21/19 04/21/19 17:01 Rx Insulin Aspart (Nf) [NovoLOG 100 5 units SUB-Q TIDAC #90 units 01/28/19 04/21/19 04/21/19 17:01 Rx UNITS/ML VIAL] Ipratropium/Albuterol Sulfate 1 puff IH BID #1 01/28/19 04/21/19 04/21/19 17:01 Rx [Combivent Respimat] Metoprolol [Lopressor TAB] 50 mg PO TID #90 tablet 01/28/19 04/21/19 04/21/19 17:01 Rx Pregabalin 50 mg PO BID #60 capsule 01/28/19 04/21/19 04/21/19 17:01 Rx Tamsulosin [Flomax] 0.4 mg PO QDAY #30 capsule 01/28/19 04/21/1904/21/20 17:01 Rx oxyCODONE /ACETAMINOPHEN [Percocet 1 tab PO Q6H PRN #20 tablet 01/28/19 04/21/19 Unknown Rx 5/325 mg] polyethylene glycoL 3350 [Miralax 17 gm PO QDAY PRN #7 powd.pack 01/28/19 04/21/19 Unknown Rx 3350] predniSONE [Deltasone] 20 mg PO QDAY #7 tablet 01/28/19 04/21/19 Unknown Rx Pantoprazole [Protonix TAB] 40 mg PO QDAY #30 tablet 04/22/19 Unknown Rx ED Physical Exam - General Limitations: Physical Limitation - Other Other exam information: General: No acute distress Head: Atraumatic Eyes: normal appearance ENT: Moist mucous membranes Neck: Normal appearance, no midline tenderness Chest: Clear to auscultation bilaterally, no rales, no tachypnea or accessory muscle use CV: Irregular rate and rhythm Abdomen: Soft, normal bowel sounds, nontender, mild distention as per patient, no rebound or guarding Back: Normal inspection Extremity: Bilateral lower extremity edema worse at the ankle and foot, no calf tenderness Neuro: Alert O x 3, no facial asymmetry, speech clear, no gross motor sensory deficit Psych: Appropriate behavior Skin: No rash ED Course Vital Signs 08/08/19 08/08/19 08/08/19 20:17 20:22 20:31 Temperature 98.2 F Pulse Rate 88 95 H Respiratory 22 18 14 Rate Blood Pressure 137/88 137/88 Blood Pressure 137/88 [Right] O2 Sat by Pulse 100 97 Oximetry 08/08/19 08/08/19 08/08/19 20:45 21:01 21:15 Temperature Pulse Rate 91 H 90 90 Respiratory 29 H 17 17 Rate Blood Pressure 137/88 137/88 137/88 Blood Pressure [Right] O2 Sat by Pulse 96 95 95 Oximetry 08/08/19 08/08/19 08/08/19 21:31 21:45 22:01 Temperature Pulse Rate 96 H 99 H 86 Respiratory 19 15 18 Rate Blood Pressure 121/91 121/91 121/91 Blood Pressure [Right] O2 Sat by Pulse 95 96 95 Oximetry 08/08/19 08/08/19 08/08/19 22:15 22:31 22:45 Temperature Pulse Rate 108 H 96 H Respiratory 22 17 Rate Blood Pressure 121/91 131/86 131/86 Blood Pressure [Right] O2 Sat by Pulse 96 97 97 Oximetry 08/08/19 08/08/19 23:01 23:15 Temperature Pulse Rate 89 94 H Respiratory 16 14 Rate Blood Pressure 131/86 131/86 Blood Pressure [Right] O2 Sat by Pulse 96 96 Oximetry ED Medical Decision Making - Lab Data Result diagrams: 08/08/19 20:48 08/08/19 20:48 Lab Results 08/08/19 08/08/19 08/08/19 Range/Units 20:48 20:48 20:48 WBC 4.1 L (4.5-11.0) K/mm3 RBC 4.50 (3.65-5.03) M/mm3 Hgb 10.0 L (11.8-15.2) gm/dl Hct 32.7 L (35.5-45.6) % MCV 73 L (84-94) fl MCH 22 L (28-32) pg MCHC 31 L (32-34) % RDW 23.5 H (13.2-15.2) % Plt Count 124 L (140-440) K/mm3 Lymph % (Auto) 19.5 (13.4-35.0) % [place] % (Auto) 10.6 H (0.0-7.3) % Eos % (Auto) 4.1 (0.0-4.3) % Baso % (Auto) 1.1 (0.0-1.8) % Lymph # 0.8 L (1.2-5.4) K/mm3 [place] # 0.4 (0.0-0.8) K/mm3 Eos # 0.2 (0.0-0.4) K/mm3 Baso # 0.0 (0.0-0.1) K/mm3 Seg Neutrophils % 64.7 (40.0-70.0) % Seg Neutrophils # 2.6 (1.8-7.7) K/mm3 PT 18.2 H (12.2-14.9) Sec. INR 1.48 H (0.87-1.13) APTT 33.2 (24.2-36.6) Sec. Sodium 141 (137-145) mmol/L Potassium 5.3 H (3.6-5.0) mmol/L Chloride 105.9 (98-107) mmol/L Carbon Dioxide 25 (22-30) mmol/L Anion Gap 15 mmol/L BUN 19 (9-20) mg/dL Creatinine 1.8 H (0.8-1.5) mg/dL Estimated GFR 45 ml/min BUN/Creatinine Ratio 11 % Glucose 145 H (75-100) mg/dL Calcium 9.1 (8.4-10.2) mg/dL Magnesium 2.00 (1.7-2.3) mg/dL Troponin T < 0.010 (0.00-0.029) ng/mL NT-Pro-B Natriuret Pep 3056 H (0-900) pg/mL - EKG Data -: EKG Interpreted by Me (afib) EKG shows normal: ST-T waves (no stemi) Rate: normal (90) - Radiology Data Radiology results: report reviewed CHEST 1 VIEW INDICATION / CLINICAL INFORMATION: sob. COMPARISON: 02/20/2019 FINDINGS: SUPPORT DEVICES: None. HEART / MEDIASTINUM: Stable moderate cardiomegaly with pulmonary venous hypertension. LUNGS / PLEURA: No significant pulmonary or pleural abnormality. No pneumothorax. ADDITIONAL FINDINGS: No significant additional findings. IMPRESSION: 1. Cardiomegaly and pulmonary venous hypertension, unchanged. - Medical Decision Making 1.3 L Urine output after Lasix 60mg IV pt with sob and leg edema current meds list unknown and recent [facility] have [facility]. plan to admit for further tx. - Differential Diagnosis CHF, COPD, pneumonia, bronchitis Critical Care Time: No Critical care attestation.: If time is entered above; I have spent that time in minutes in the direct care of this critically ill patient, excluding procedure time. ED Disposition Clinical Impression: CHF exacerbation, Bilateral leg edema, SOB (shortness of breath), History of DVT (deep vein thrombosis), History of pulmonary embolism, remote computer terminal operator current use of anticoagulant, Chronic atrial fibrillation, CRI (chronic renal insufficiency) Disposition: OP ADMIT IP TO THIS HOSP Is pt being admited?: Yes Condition: Stable Time of Disposition: 00:05
[2019-08-08 21:08] LABS: Basophils % (Auto) 1.1 % (0.0-1.8); Eosinophils # (Auto) 0.2 K/mm3 (0.0-0.4); Eosinophils % (Auto) 4.1 % (0.0-4.3); Hematocrit 32.7 % (35.5-45.6); Lymphocytes # (Auto) 0.8 K/mm3 (1.2-5.4); Lymphocytes % (Auto) 19.5 % (13.4-35.0); Mean Corpuscular HGB Conc 31 % (32-34); Mean Corpuscular Volume 73 fl (84-94); Monocytes # (Auto) 0.4 K/mm3 (0.0-0.8); Monocytes % (Auto) 10.6 % (0.0-7.3)
[2019-08-08 21:10] LABS: INR 1.48 (0.87-1.13)
[2019-08-08 21:11] LABS: Partial Thromboplastin Time 33.2 Sec. (24.2-36.6)
[2019-08-08 21:12] LABS: Platelet Count 124 K/mm3 (140-440); Red Cell Distribution Width 23.5 % (13.2-15.2)
--- NOTE | 2019-08-08 21:21 | XRay Report ---
CHEST 1 VIEW INDICATION / CLINICAL INFORMATION: sob. COMPARISON: 02/20/2019 FINDINGS: SUPPORT DEVICES: None. HEART / MEDIASTINUM: Stable moderate cardiomegaly with pulmonary venous hypertension. LUNGS / PLEURA: No significant pulmonary or pleural abnormality. No pneumothorax. ADDITIONAL FINDINGS: No significant additional findings. IMPRESSION: 1. Cardiomegaly and pulmonary venous hypertension, unchanged. Signer Name: Murtaza Lozano MD Signed: 08/08/2019 9:16 PM Workstation Name: [id number]
[2019-08-08 21:24] LABS: BUN/Creatinine Ratio 11; Blood Urea Nitrogen 19 mg/dL (9-20); Calcium 9.1 mg/dL (8.4-10.2); Hemolysis Index 15
[2019-08-08] MEDS ORDERED: FUROSEMIDE 40 MG/4 ML INJ IV ONE (21:32)
--- NOTE | 2019-08-09 00:51 | History and Physical Report ---
History of Present Illness History of present illness: [id number] man with a history of hypertension, diabetes, atrial fibrillation, pulmonary emboli, CHF, gout, COPD, BPH comes emergency room with complaints of shortness of breath. Patient also complained that his feet and abdomen were swollen, admits to dyspnea on exertion with decreased exercise tolerance, orthopnea and PND. He will be admitted for CHF exacerbation Review of systems Constitutional: no weight loss, chills Ears, eyes, nose, mouth and throat: no nasal congestion, no nasal discharge, no sinus pressure, no vision change, no red eye. Neck: No neck pain or rigidity. Cardiovascular: no palpitations, chest pain Respiratory: no cough Gastrointestinal: no hematochezia, abdominal pain Genitourinary : no frequency , no hematuria Musculoskeletal: no joint swelling or muscle ache Integumentary: no rash, no pruritis Neurological: no parathesias, no focal weakness Endocrine: no cold or heat intolerance, no polyuria or polydipsia Hematologic/Lymphatic: no easy bruising, no easy bleeding, no gland swelling Allergic/Immunologic: no urticaria, no angioedema. PAST MEDICAL HISTORY: hypertension, diabetes,atrial fibrillation, pulmonary emboli, CHF, gout, COPD, BPH PAST SURGICAL HISTORY: Neck and back SOCIAL HISTORY: Denies alcohol, drugs, tobacco FAMILY HISTORY: Hypertension Medications and Allergies Allergies Allergy/AdvReac Type Severity Reaction Status Date / Time No Known Allergies Allergy Verified 05/05/18 23:54 Home Medications Medication Instructions Recorded Confirmed Last Taken Type Apixaban [Eliquis] 5 mg PO Q12HR #60 tablet 01/28/19 04/21/19 04/21/19 17:01 Rx AtorvaSTATin [Lipitor] 40 mg PO QHS #30 tablet 01/28/19 04/21/19 Unknown Rx Colchicine 0.6 mg PO QDAY #30 capsule 01/28/19 04/21/19 04/21/19 17:01 Rx Insulin Aspart (Nf) [NovoLOG 100 5 units SUB-Q TIDAC #90 units 01/28/19 04/21/19 04/21/19 17:01 Rx UNITS/ML VIAL] Ipratropium/Albuterol Sulfate 1 puff IH BID #1 01/28/19 04/21/19 04/21/19 17:01 Rx [Combivent Respimat] Metoprolol [Lopressor TAB] 50 mg PO TID #90 tablet 01/28/19 04/21/19 04/21/19 17:01 Rx Pregabalin 50 mg PO BID #60 capsule 01/28/19 04/21/19 04/21/19 17:01 Rx Tamsulosin [Flomax] 0.4 mg PO QDAY #30 capsule 01/28/19 04/21/19 04/21/19 17:01 Rx oxyCODONE /ACETAMINOPHEN [Percocet 1 tab PO Q6H PRN #20 tablet 01/28/19 04/21/19 Unknown Rx 5/325 mg] polyethylene glycoL 3350 [Miralax 17 gm PO QDAY PRN #7 powd.pack 01/28/19 04/21/19 Unknown Rx 3350] predniSONE [Deltasone] 20 mg PO QDAY #7 tablet 01/28/19 04/21/19 Unknown Rx Pantoprazole [Protonix TAB] 40 mg PO QDAY #30 tablet 04/22/19 Unknown Rx Exam - Physical Exam Narrative exam: General Apperance: The patient sitting in bed no acute distress HEENT: Normocephalic, atraumatic. Pupils equally round and reactive to light, extraocular movement intact, and no sclericterus or JVD or thyromegaly or nodule. Neck supple, no carotid bruit, mucous membranes moist, no exudate or erythema Heart: S1-S2, regular is rhythm Lungs: Crackles to auscultation bilaterally, breathing comfortable Abdomen: Positive bowel sounds, soft, nontender, nondistended, no organomegaly Extremities:+ edema cyanosis clubbing, knee swelling Skin: no rash, nodule, warm and dry Neuro:CN 2 -12 intact, motor/sensory intact, speech is fluent - Constitutional Vitals: Temp Pulse Resp BP Pulse Ox 98.2 F 94 H 14 131/86 96 08/08/19 20:22 08/08/19 23:15 08/08/19 23:15 08/08/19 23:15 08/08/19 23:15 Results - Labs CBC & Chem 7: 08/08/19 20:48 08/08/19 20:48 Labs: Abnormal lab results 08/08/19 08/08/19 08/08/19 Range/Units 20:48 20:48 20:48 WBC 4.1 L (4.5-11.0) K/mm3 Hgb 10.0 L (11.8-15.2) gm/dl Hct 32.7 L (35.5-45.6) % MCV 73 L (84-94) fl MCH 22 L (28-32) pg MCHC 31 L (32-34) % RDW 23.5 H (13.2-15.2) % Plt Count 124 L (140-440) K/mm3 [place] % (Auto) 10.6 H (0.0-7.3) % Lymph # 0.8 L (1.2-5.4) K/mm3 PT 18.2 H (12.2-14.9) Sec. INR 1.48 H (0.87-1.13) Potassium 5.3 H (3.6-5.0) mmol/L Creatinine 1.8 H (0.8-1.5) mg/dL Glucose 145 H (75-100) mg/dL NT-Pro-B Natriuret Pep 3056 H (0-900) pg/mL - Imaging and Cardiology EKG: image reviewed Chest x-ray: report reviewed Assessment and Plan Assessment Acute on chronic systolic heart Failure, EF 25-50% Diuresed with IV Lasix, start ADRIAN inhibitor and beta elena, aspirin Consult cardiology consult, recent echo done in April atrial fibrillation Stable, continue Eliquis Diabetes Check fingersticks, start sliding scale insulin History of COPD; stable Hypertension, continue outpatient medications Chronic kidney disease stage III Thrombocytopenia DVT prophylaxis
[2019-08-09] MEDS ORDERED: ONDANSETRON 4 MG/2 ML INJ IV PRN (02:00)
[2019-08-09] MEDS ORDERED: oxyCODONE /ACETAMINOPHEN 5-325MG TAB PO PRN (02:00)
[2019-08-09 03:14] LABS: Basophils % (Auto) 0.9 % (0.0-1.8); Eosinophils # (Auto) 0.2 K/mm3 (0.0-0.4); Hematocrit 34.7 % (35.5-45.6); Hemoglobin 10.8 gm/dl (11.8-15.2); Lymphocytes # (Auto) 1.2 K/mm3 (1.2-5.4); Lymphocytes % (Auto) 27.6 % (13.4-35.0); Mean Corpuscular HGB Conc 31 % (32-34); Mean Corpuscular Volume 72 fl (84-94); Monocytes # (Auto) 0.5 K/mm3 (0.0-0.8); Monocytes % (Auto) 11.3 % (0.0-7.3); Red Blood Count 4.85 M/mm3 (3.65-5.03)
[2019-08-09 03:33] LABS: Platelet Count 141 K/mm3 (140-440); Red Cell Distribution Width 22.9 % (13.2-15.2)
[2019-08-09 03:39] LABS: Calcium 9.9 mg/dL (8.4-10.2)
[2019-08-09 03:41] LABS: Creatine Kinase MB 2.1 ng/mL (0.0-4.0)
[2019-08-09] MEDS: FUROSEMIDE 40 MG/4 ML INJ IV SCH ×2 (05:48→18:38)
--- NOTE | 2019-08-09 07:47 | Progress Note ---
Assessment and Plan Assessment and plan: Patient is a 69-year-old man with a history of atrial fibrillation, BPH, DVT (BLE), PE (bilateral lungs) on Eliquis, kidney stones, insulin-dependent diabetes with neuropathy, COPD, GERD, hypertension, gout and CHF with EF of 25 to 30% with LifeVest recommendation as per April discharge summary who pr esents to [facility] with worsening lower extremity edema, abdominal distention, and dyspnea exertion x3 days. Patient denies cough, fever, or chest pain or COVID-19 exposure. Patient states he is compliant with all his medications except he takes spirolactone instead of the lasix. Patient does not have his current medication list with him but admits to several changes made by the [facility] since last visit here. He had 1.3 L Urine output after Lasix 60mg IV given. * pCXR 1. Cardiomegaly and pulmonary venous hypertension, unchanged. Acute on chronic systolic heart Failure, EF 25-50% Diuresed with IV Lasix, start ADRIAN inhibitor and beta elena, aspirin Consult cardiology consult, recent echo done in April counseling done, Atrial fibrillation Stable, continue Eliquis Diabetes mellitus type 2 Check fingersticks, start sliding scale insulin, ada diet History of COPD; stable Hypertension, continue outpatient medications Chronic kidney disease stage III Thrombocytopenia DVT prophylaxis reviewed, on Eliquis History Interval history: Patient was seen and examined. Follow-up on current diagnosis of CHF. Overnight uneventful as no events directly reported to me. Patient denies any chest pain, nausea/vomiting or severe headaches. Imaging, nursing note, chart, labs and old chart reviewed. Discussed with patient. Hospitalist Physical - Physical exam Narrative exam: Gen: WDWN, NAD, Awake, Alert, Orientated HEENT: NCAT, EOMI, PERRL, OP Clear Neck: supple, no adenopathy, no thyromegaly, +JVD CVS/Heart: irreg irreg, normal S1S2, pulses present bilaterally Chest/Lungs: diminished bs bilaterally, Symmetrical chest expansion, good air entry bilaterally GI/Abdomen: soft, NTND, good bowel sounds, no guarding or rebound /Bladder: no suprapubic tenderness, no CVA or paraspinal tenderness Extermity/Skin: +ble edema, no obvious rash MSK: FROM x 4 Neuro: CN 2-12 grossly intact, no new focal deficits Psych: calm - Constitutional Vitals: Temp Pulse Resp BP Pulse Ox 98.9 F 61 18 149/94 95 08/09/19 02:49 08/09/19 02:49 08/09/19 02:49 08/09/19 02:49 08/09/19 02:49 Results - Labs CBC & Chem 7: 08/09/19 02:43 08/09/19 02:43 Labs: Laboratory Last Values WBC 4.5 K/mm3 (4.5-11.0) 08/09/19 02:43 RBC 4.85 M/mm3 (3.65-5.03) 08/09/19 02:43 Hgb 10.8 gm/dl (11.8-15.2) L 08/09/19 02:43 Hct 34.7 % (35.5-45.6) L 08/09/19 02:43 MCV 72 fl (84-94) L 08/09/19 02:43 MCH 22 pg (28-32) L 08/09/19 02:43 MCHC 31 % (32-34) L 08/09/19 02:43 RDW 22.9 % (13.2-15.2) H 08/09/19 02:43 Plt Count 141 K/mm3 (140-440) 08/09/19 02:43 Lymph % (Auto) 27.6 % (13.4-35.0) 08/09/19 02:43 [place] % (Auto) 11.3 % (0.0-7.3) H 08/09/19 02:43 Eos % (Auto) 4.0 % (0.0-4.3) 08/09/19 02:43 Baso % (Auto) 0.9 % (0.0-1.8) 08/09/19 02:43 Lymph # 1.2 K/mm3 (1.2-5.4) 08/09/19 02:43 [place] # 0.5 K/mm3 (0.0-0.8) 08/09/19 02:43 Eos # 0.2 K/mm3 (0.0-0.4) 08/09/19 02:43 Baso # 0.0 K/mm3 (0.0-0.1) 08/09/19 02:43 Seg Neutrophils % 56.2 % (40.0-70.0) 08/09/19 02:43 Seg Neutrophils # 2.5 K/mm3 (1.8-7.7) 08/09/19 02:43 PT 18.2 Sec. (12.2-14.9) H 08/08/19 20:48 INR 1.48 (0.87-1.13) H 08/08/19 20:48 APTT 33.2 Sec. (24.2-36.6) 08/08/19 20:48 Sodium 142 mmol/L (137-145) 08/09/19 02:43 Potassium 5.1 mmol/L (3.6-5.0) H 08/09/19 02:43 Chloride 103.2 mmol/L (98-107) 08/09/19 02:43 Carbon Dioxide 27 mmol/L (22-30) 08/09/19 02:43 Anion Gap 17 mmol/L 08/09/19 02:43 BUN 20 mg/dL (9-20) 08/09/19 02:43 Creatinine 1.9 mg/dL (0.8-1.5) H 08/09/19 02:43 Estimated GFR 42 ml/min 08/09/19 02:43 BUN/Creatinine Ratio 11 % 08/09/19 02:43 Glucose 93 mg/dL (75-100) 08/09/19 02:43 Calcium 9.9 mg/dL (8.4-10.2) 08/09/19 02:43 Magnesium 2.00 mg/dL (1.7-2.3) 08/08/19 20:48 Total Creatine Kinase 66 units/L (55-170) 08/09/19 02:43 CK-MB (CK-2) 2.1 ng/mL (0.0-4.0) 08/09/19 02:43 CK-MB (CK-2) Rel Index 3.1 (0-4) 08/09/19 02:43 Troponin T 0.013 ng/mL (0.00-0.029) 08/09/19 02:43 NT-Pro-B Natriuret Pep 3056 pg/mL (0-900) H 08/08/19 20:48 [place]/IV: Voiding Method Toilet IV Catheter Type [Right Hand] INT / Saline Lock Active Medications - Current Medications Current Medications: Generic Name Dose Route Start Last Admin Trade Name Freq PRN Reason Stop Dose Admin Acetaminophen 650 mg 08/09/19 02:00 Tylenol PO Q4H PRN Pain MILD(1-3)/Fever >100.5/LOPEZ Apixaban 5 mg 08/09/19 10:00 Eliquis PO Q12HR [facility] Protocol Aspirin 81 mg 08/09/19 10:00 Baby Aspirin PO QDAY [facility] Furosemide 40 mg 08/09/19 06:00 08/09/19 05:48 Lasix IV 40 mg BID@0600,1800 [facility] Administration Lisinopril 2.5 mg 08/09/19 10:00 Zestril PO QDAY [facility] Metoprolol Tartrate 25 mg 08/09/19 10:00 Metoprolol PO BID [facility] Ondansetron HCl 4 mg 08/09/19 02:00 Zofran IV Q8H PRN Nausea And Vomiting Oxycodone/Acetaminophen 1 tab 08/09/19 02:00 Percocet 5/325 PO Q6H PRN Pain, Moderate (4-6) Sodium Chloride 10 ml 08/09/19 10:00 Sodium Chloride Flush Syringe 10 Ml IV BID [facility] Sodium Chloride 10 ml 08/09/19 02:00 Sodium Chloride Flush Syringe 10 Ml IV PRN PRN LINE FLUSH
[2019-08-09] MEDS: METOPROLOL TARTRATE 25 MG TAB PO SCH ×2 (09:18→21:25)
[2019-08-09] MEDS: APIXABAN 5 MG TAB PO SCH ×2 (09:20→21:25)
[2019-08-09] MEDS: LISINOPRIL 5 MG TAB PO SCH (09:20)
[2019-08-09] MEDS: ASPIRIN 81 MG TAB CHEW PO SCH (09:20)
[2019-08-09] MEDS ORDERED: ENOXAPARIN 30 MG/0.3 ML INJ SUB-Q SCH (10:00)
--- NOTE | 2019-08-09 12:59 | Consultation ---
History of Present Illness Consult date: 08/09/19 Requesting physician: GUNNAR COPELAND Consult reason: shortness of breath, other (B/L leg edema) History of present illness: 69-year-old male with a past medical history of PE/DVT (on Eliquis), atrial fibrillation, chronic HFrEF EF 25 to 30%, GERD, anemia, diabetes, and COPD presents to the hospital complains of worsening lower extremity edema, abdominal distention, and dyspnea exertion x3 days. Patient denies cough, fever, or chest pain. Patient states he is compliant with all his medications. Past History Past Medical History: atrial fib, anemia, COPD, diabetes, DVT, GERD, heart failure, renal failure Social history: denies: prescription drug abuse, IV drug use Family history: CAD Medications and Allergies Allergies Allergy/AdvReac Type Severity Reaction Status Date / Time No Known Allergies Allergy Verified 05/05/18 23:54 Home Medications Medication Instructions Recorded Confirmed Last Taken Type Apixaban [Eliquis] 5 mg PO Q12HR #60 tablet 01/28/19 08/09/19 1 Day Ago Rx ~08/08/19 5 MG AtorvaSTATin [Lipitor] 40 mg PO QHS #30 tablet 01/28/19 08/09/19 1 Day Ago Rx ~08/08/19 40 MG Colchicine 0.6 mg PO QDAY #30 capsule 01/28/19 08/09/19 1 Day Ago Rx ~08/08/19 0.6 MG Insulin Aspart (Nf) [NovoLOG 100 5 units SUB-Q TIDAC #90 units 01/28/19 08/09/19 1 Day Ago Rx UNITS/ML VIAL] ~08/08/19 5 UNITS Ipratropium/Albuterol Sulfate 1 puff IH BID #1 01/28/19 08/09/19 1 Day Ago Rx [Combivent Respimat] ~08/08/19 1 PUFF Metoprolol [Lopressor TAB] 50 mg PO TID #90 tablet 01/28/19 08/09/19 1 Day Ago Rx ~08/08/19 50 MG Pregabalin 50 mg PO BID #60 capsule 01/28/19 08/09/19 1 Day Ago Rx ~08/08/19 50 MG Tamsulosin [Flomax] 0.4 mg PO QDAY #30 capsule 01/28/19 08/09/19 1 Day Ago Rx ~08/08/19 0.4 MG oxyCODONE /ACETAMINOPHEN [Percocet 1 tab PO Q6H PRN #20 tablet 01/28/19 08/09/19 1 Day Ago Rx 5/325 mg] ~08/08/19 1 TAB polyethylene glycoL 3350 [Miralax 17 gm PO QDAY PRN #7 powd.pack 01/28/19 08/09/19 1 Day Ago Rx 3350] ~08/08/19 17 GM predniSONE [Deltasone] 20 mg PO QDAY #7 tablet 01/28/19 08/09/19 1 Day Ago Rx ~08/08/19 20 MG Pantoprazole [Protonix TAB] 40 mg PO QDAY #30 tablet 04/22/19 08/09/19 1 Day Ago Rx ~08/08/19 40 MG Active Meds: Active Medications Acetaminophen (Tylenol) 650 mg PO Q4H PRN PRN Reason: Pain MILD(1-3)/Fever >100.5/LOPEZ Apixaban (Eliquis) 5 mg PO Q12HR [facility]; Protocol Last Admin: 08/09/19 09:20 Dose: 5 mg Documented by: Aspirin (Baby Aspirin) 81 mg PO QDAY [facility] Last Admin: 08/09/19 09:20 Dose: 81 mg Documented by: Furosemide (Lasix) 40 mg IV BID@0600,1800 [facility] Last Admin: 08/09/19 05:48 Dose: 40 mg Documented by: Lisinopril (Zestril) 2.5 mg PO QDAY [facility] Last Admin: 08/09/19 09:20 Dose: 2.5 mg Documented by: Metoprolol Tartrate (Metoprolol) 25 mg PO BID [facility] Last Admin: 08/09/19 09:18 Dose: 25 mg Documented by: Ondansetron HCl (Zofran) 4 mg IV Q8H PRN PRN Reason: Nausea And Vomiting Oxycodone/Acetaminophen (Percocet 5/325) 1 tab PO Q6H PRN PRN Reason: Pain, Moderate (4-6) Sodium Chloride (Sodium Chloride Flush Syringe 10 Ml) 10 ml IV BID [facility] Last Admin: 08/09/19 09:20 Dose: 10 ml Documented by: Sodium Chloride (Sodium Chloride Flush Syringe 10 Ml) 10 ml IV PRN PRN PRN Reason: LINE FLUSH Review of Systems Constitutional: weight gain, no fever, no chills, no night sweats Ears, nose, mouth and throat: no ear pain, no ear discharge Cardiovascular: orthopnea, edema, shortness of breath, no chest pain, no palpitations, no syncope, no lightheadedness Respiratory: dyspnea on exertion, no cough, no hemoptysis Gastrointestinal: no abdominal pain, no nausea, no vomiting Genitourinary Male: no dysuria, no hematuria, no flank pain Musculoskeletal: no neck stiffness, no neck pain Integumentary: no rash, no pruritis Neurological: no transient paralysis, no paralysis, no weakness Psychiatric: no anxiety, no memory loss Endocrine: no cold intolerance, no heat intolerance Hematologic/Lymphatic: no easy bruising, no easy bleeding Allergic/Immunologic: no urticaria, no allergic rhinitis Physical Examination Vital Signs Resp 08/08/19 20:17 General appearance: no acute distress HEENT: Positive: PERRL Neck: Positive: neck supple, trachea midline Cardiac: Positive: Irregularly Regular Lungs: Positive: Decreased Breath Sounds Neuro: Positive: Grossly Intact Abdomen: Positive: Soft, Active Bowel Sounds Male genitourinary: Positive: deferred Skin: Negative: Rash, Ulceration Musculoskeletal: Normal Range of Motion Extremities: Present: +1 Edema, warm Results 08/09/19 02:43 08/09/19 02:43 Cardiac Enzymes 08/09/19 08/09/19 Range/Units 02:43 09:44 CK-MB (CK-2) 2.1 2.0 (0.0-4.0) ng/mL Coagulation 08/08/19 Range/Units 20:48 PT 18.2 H (12.2-14.9) Sec. INR 1.48 H (0.87-1.13) APTT 33.2 (24.2-36.6) Sec. CBC 08/08/19 08/09/19 Range/Units 20:48 02:43 WBC 4.1 L 4.5 (4.5-11.0) K/mm3 RBC 4.50 4.85 (3.65-5.03) M/mm3 Hgb 10.0 L 10.8 L (11.8-15.2) gm/dl Hct 32.7 L 34.7 L (35.5-45.6) % Plt Count 124 L 141 (140-440) K/mm3 Lymph # 0.8 L 1.2 (1.2-5.4) K/mm3 Atkinson # 0.4 0.5 (0.0-0.8) K/mm3 Eos # 0.2 0.2 (0.0-0.4) K/mm3 Baso # 0.0 0.0 (0.0-0.1) K/mm3 Comprehensive Metabolic Panel 08/08/19 08/09/19 Range/Units 20:48 02:43 Sodium 141 142 (137-145) mmol/L Potassium 5.3 H 5.1 H (3.6-5.0) mmol/L Chloride 105.9 103.2 (98-107) mmol/L Carbon Dioxide 25 27 (22-30) mmol/L BUN 19 20 (9-20) mg/dL Creatinine 1.8 H 1.9 H (0.8-1.5) mg/dL Glucose 145 H 93 (75-100) mg/dL Calcium 9.1 9.9 (8.4-10.2) mg/dL - Imaging and Cardiology Echo: report reviewed (ECHO 05/05: mild LVH, EF 15-20%, mod LAE, mod-sev RAJEEV, mod-sev RVE, RVSP 42mmHg) Assessment and Plan 69 Male Admitted with acute on chronic HFrEF 15-20% (followed by [place] cardiology) Strict I's and O's Continue IV diuresis Continue lisinopril and metoprolol NICM Persistent atrial fibrillation Telemetry atrial fibrillation in the 70s Continue metoprolol Continue oral anticoagulation History of PE/DVT Hypertension Hyperlipidemia Chronic kidney disease Anemia Diabetes COPD GERD BPH Gout
[2019-08-09] MEDS: ACETAMINOPHEN 325 MG TAB PO PRN (16:52)
[2019-08-09] MEDS ORDERED: ALUM-MAG HYDROXIDE-SIMETHICONE 200-200-20MG/5ML ORAL LIQD 30 ML PO PRN (20:51)
[2019-08-10] MEDS: POLYETHYLENE GLYCOL 3350 17 GM POWDER PO PRN (02:01)
[2019-08-10] MEDS: FUROSEMIDE 40 MG/4 ML INJ IV SCH ×2 (05:00→17:05)
--- NOTE | 2019-08-10 07:51 | Progress Note ---
Assessment and Plan Assessment and plan: Patient is a 69-year-old man with a history of atrial fibrillation, BPH, DVT (BLE), PE (bilateral lungs) on Eliquis, kidney stones, insulin-dependent diabetes with neuropathy, COPD, GERD, hypertension, gout and CHF with EF of 25 to 30% with LifeVest recommendation as per April discharge summary who pr esents to [facility] ER with worsening lower extremity edema, abdominal distention, and dyspnea exertion x3 days. Patient denies cough, fever, or chest pain or COVID-19 exposure. Patient states he is compliant with all his medications except he takes spirolactone instead of the lasix. Patient does not have his current medication list with him but admits to several changes made by the since last visit here. He had 1.3 L Urine output after Lasix 60mg IV given. * pCXR 1. Cardiomegaly and pulmonary venous hypertension, unchanged. Acute on chronic systolic heart Failure, EF 25-30%: Diuresed with IV Lasix, start ADRIAN inhibitor and beta elena, aspirin, Cardiology input noted, counseling on compliance done, Atrial fibrillation: Stable, continue Eliquis, BBlocker Diabetes mellitus type 2: Check fingersticks, start sliding scale insulin, ada diet History of COPD; stable Hypertension, continue outpatient medications Chronic kidney disease stage III suspect NETO due to vasomotor nephrolology, poa defer to Nephrology Microcytic Anemia, appears chronic Thrombocytopenia: monitor CBC DVT prophylaxis reviewed, on Eliquis 08/10/19: Renal Creatinine worsening? in 2019 Cr was 1.5 and 1.9 on discharge, now Cr is 1.9, consulted Nephology and ordered Renal U/S. He complains of constipation and miralax not working, ordered Dulcolax suppository and advised he needs colonoscopy outpatient, he will consider after the Coronovirus pandemic, he has neuropathy but "aint taking it". He has a LifeVest but states, "aint using it" and states he heart functioning at 35% History Interval history: Patient was seen and examined. Follow-up on current diagnosis of CHF. Overnight uneventful as no events directly reported to me. Patient denies any chest pain, nausea/vomiting or severe headaches. Imaging, nursing note, chart, labs and old chart reviewed. Discussed with patient. Hospitalist Physical - Physical exam Narrative exam: Gen: WDWN, NAD, Awake, Alert, Orientated HEENT: NCAT, EOMI, PERRL, OP Clear Neck: supple, no adenopathy, no thyromegaly, +JVD CVS/Heart: irreg irreg, normal S1S2, pulses present bilaterally Chest/Lungs: diminished bs bilaterally, Symmetrical chest expansion, good air entry bilaterally GI/Abdomen: soft, NTND, good bowel sounds, no guarding or rebound /Bladder: no suprapubic tenderness, no CVA or paraspinal tenderness Extermity/Skin: +ble edema, no obvious rash MSK: FROM x 4 Neuro: CN 2-12 grossly intact, no new focal deficits Psych: calm - Constitutional Vitals: Temp Pulse Resp BP Pulse Ox 98.0 F 76 18 125/83 97 08/10/19 05:06 08/10/19 05:06 08/10/19 05:06 08/10/19 05:06 08/10/19 05:06 General appearance: Present: no acute distress Results - Labs CBC & Chem 7: 08/09/19 02:43 08/09/19 02:43 Labs: Laboratory Last Values WBC 4.5 K/mm3 (4.5-11.0) 08/09/19 02:43 RBC 4.85 M/mm3 (3.65-5.03) 08/09/19 02:43 Hgb 10.8 gm/dl (11.8-15.2) L 08/09/19 02:43 Hct 34.7 % (35.5-45.6) L 08/09/19 02:43 MCV 72 fl (84-94) L 08/09/19 02:43 MCH 22 pg (28-32) L 08/09/19 02:43 MCHC 31 % (32-34) L 08/09/19 02:43 RDW 22.9 % (13.2-15.2) H 08/09/19 02:43 Plt Count 141 K/mm3 (140-440) 08/09/19 02:43 Lymph % (Auto) 27.6 % (13.4-35.0) 08/09/19 02:43 Bucks % (Auto) 11.3 % (0.0-7.3) H 08/09/19 02:43 Eos % (Auto) 4.0 % (0.0-4.3) 08/09/19 02:43 Baso % (Auto) 0.9 % (0.0-1.8) 08/09/19 02:43 Lymph # 1.2 K/mm3 (1.2-5.4) 08/09/19 02:43 Bucks # 0.5 K/mm3 (0.0-0.8) 08/09/19 02:43 Eos # 0.2 K/mm3 (0.0-0.4) 08/09/19 02:43 Baso # 0.0 K/mm3 (0.0-0.1) 08/09/19 02:43 Seg Neutrophils % 56.2 % (40.0-70.0) 08/09/19 02:43 Seg Neutrophils # 2.5 K/mm3 (1.8-7.7) 08/09/19 02:43 PT 18.2 Sec. (12.2-14.9) H 08/08/19 20:48 INR 1.48 (0.87-1.13) H 08/08/19 20:48 APTT 33.2 Sec. (24.2-36.6) 08/08/19 20:48 Sodium 142 mmol/L (137-145) 08/09/19 02:43 Potassium 5.1 mmol/L (3.6-5.0) H 08/09/19 02:43 Chloride 103.2 mmol/L (98-107) 08/09/19 02:43 Carbon Dioxide 27 mmol/L (22-30) 08/09/19 02:43 Anion Gap 17 mmol/L 08/09/19 02:43 BUN 20 mg/dL (9-20) 08/09/19 02:43 Creatinine 1.9 mg/dL (0.8-1.5) H 08/09/19 02:43 Estimated GFR 42 ml/min 08/09/19 02:43 BUN/Creatinine Ratio 11 % 08/09/19 02:43 Glucose 93 mg/dL (75-100) 08/09/19 02:43 Calcium 9.9 mg/dL (8.4-10.2) 08/09/19 02:43 Magnesium 2.00 mg/dL (1.7-2.3) 08/08/19 20:48 Total Creatine Kinase 72 units/L (55-170) 08/09/19 09:44 CK-MB (CK-2) 2.0 ng/mL (0.0-4.0) 08/09/19 09:44 CK-MB (CK-2) Rel Index 2.7 (0-4) 08/09/19 09:44 Troponin T 0.013 ng/mL (0.00-0.029) 08/09/19 09:44 NT-Pro-B Natriuret Pep 3056 pg/mL (0-900) H 08/08/19 20:48 Galeana/IV: Voiding Method Toilet IV Catheter Type [Right Hand] INT / Saline Lock Active Medications - Current Medications Current Medications: Generic Name Dose Route Start Last Admin Trade Name Freq PRN Reason Stop Dose Admin Acetaminophen 650 mg 08/09/19 02:00 08/09/19 16:52 Tylenol PO 650 mg Q4H PRN Administration Pain MILD(1-3)/Fever >100.5/LOPEZ Al Hydrox/Mg Hydrox/Simethicone 30 ml 08/09/19 20:51 08/09/19 21:25 Alum-Mag Hydrox-Simeth [phone]/5ml PO 30 ml Q4H PRN Administration Indigestion Apixaban 5 mg 08/09/19 10:00 08/09/19 21:25 Eliquis PO 5 mg Q12HR JERRY Administration Protocol Aspirin 81 mg 08/09/19 10:00 08/09/19 09:20 Baby Aspirin PO 81 mg QDAY JERRY Administration Furosemide 40 mg 08/09/19 06:00 08/10/19 05:00 Lasix IV 40 mg BID@0600,1800 JERRY Administration Lisinopril 2.5 mg 08/09/19 10:00 08/09/19 09:20 Zestril PO 2.5 mg QDAY JERRY Administration Metoprolol Tartrate 25 mg 08/09/19 10:00 08/09/19 21:25 Metoprolol PO 25 mg BID JERRY Administration Ondansetron HCl 4 mg 08/09/19 02:00 Zofran IV Q8H PRN Nausea And Vomiting Oxycodone/Acetaminophen 1 tab 08/09/19 02:00 Percocet 5/325 PO Q6H PRN Pain, Moderate (4-6) Polyethylene Glycol 17 gm 08/10/19 01:38 08/10/19 02:01 Miralax 3350 PO 17 gm BID PRN Administration constipation Sodium Chloride 10 ml 08/09/19 10:00 08/09/19 21:26 Sodium Chloride Flush Syringe 10 Ml IV 10 ml BID JERRY Administration Sodium Chloride 10 ml 08/09/19 02:00 Sodium Chloride Flush Syringe 10 Ml IV PRN PRN LINE FLUSH
[2019-08-10] MEDS: APIXABAN 5 MG TAB PO SCH ×2 (09:30→22:17)
[2019-08-10] MEDS: ASPIRIN 81 MG TAB CHEW PO SCH (09:31)
[2019-08-10] MEDS: METOPROLOL TARTRATE 25 MG TAB PO SCH ×2 (09:32→22:18)
[2019-08-10] MEDS: LISINOPRIL 5 MG TAB PO SCH (09:33)
[2019-08-10] MEDS: ACETAMINOPHEN 325 MG TAB PO PRN (09:46)
--- NOTE | 2019-08-10 11:36 | Consultation ---
History of Present Illness - Reason for Consult Consult date: 08/10/19 acute renal failure - History of Present Illness Mr Robison is a 69 year old M with a PMH of HTN, DM2, Afib, PE, CHF, Gout, COPD, BPH who has been admitted to the [facility] with SHOB. Pt has also had swelling of his legs. His SHOB worsens with exertion. He has also had orthopnea and PND. His Cr is currently 2.5 while it was 1.9 in Apr 2019. He is making urine. ROS: As in HPI Past History Past Medical History: atrial fib, anemia, COPD, diabetes, DVT, GERD, heart failure, renal failure Social history: denies: prescription drug abuse, IV drug use Family history: CAD Medications and Allergies Allergies Allergy/AdvReac Type Severity Reaction Status Date / Time No Known Allergies Allergy Verified 05/05/18 23:54 Home Medications Medication Instructions Recorded Confirmed Last Taken Type Apixaban [Eliquis] 5 mg PO Q12HR #60 tablet 01/28/19 08/09/19 1 Day Ago Rx ~08/08/19 5 MG AtorvaSTATin [Lipitor] 40 mg PO QHS #30 tablet 01/28/19 08/09/19 1 Day Ago Rx ~08/08/19 40 MG Colchicine 0.6 mg PO QDAY #30 capsule 01/28/19 08/09/19 1 Day Ago Rx ~08/08/19 0.6 MG Insulin Aspart (Nf) [NovoLOG 100 5 units SUB-Q TIDAC #90 units 01/28/19 08/09/19 1 Day Ago Rx UNITS/ML VIAL] ~08/08/19 5 UNITS Ipratropium/Albuterol Sulfate 1 puff IH BID #1 01/28/19 08/09/19 1 Day Ago Rx [Combivent Respimat] ~08/08/19 1 PUFF Metoprolol [Lopressor TAB] 50 mg PO TID #90 tablet 01/28/19 08/09/19 1 Day Ago Rx ~08/08/19 50 MG Pregabalin 50 mg PO BID #60 capsule 01/28/19 08/09/19 1 Day Ago Rx ~08/08/19 50 MG Tamsulosin [Flomax] 0.4 mg PO QDAY #30 capsule 01/28/19 08/09/19 1 Day Ago Rx ~08/08/19 0.4 MG oxyCODONE /ACETAMINOPHEN [Percocet 1 tab PO Q6H PRN #20 tablet 01/28/19 08/09/19 1 Day Ago Rx 5/325 mg] ~08/08/19 1 TAB polyethylene glycoL 3350 [Miralax 17 gm PO QDAY PRN #7 powd.pack 01/28/19 08/09/19 1 Day Ago Rx 3350] ~08/08/19 17 GM predniSONE [Deltasone] 20 mg PO QDAY #7 tablet 01/28/19 08/09/19 1 Day Ago Rx ~08/08/19 20 MG Pantoprazole [Protonix TAB] 40 mg PO QDAY #30 tablet 04/22/19 08/09/19 1 Day Ago Rx ~08/08/19 40 MG Active Meds: Active Medications Acetaminophen (Tylenol) 650 mg PO Q4H PRN PRN Reason: Pain MILD(1-3)/Fever >100.5/LOPEZ Last Admin: 08/10/19 09:46 Dose: 650 mg Documented by: Al Hydrox/Mg Hydrox/Simethicone (Alum-Mag Hydrox-Simeth [phone]/5ml) 30 ml PO Q4H PRN PRN Reason: Indigestion Last Admin: 08/09/19 21:25 Dose: 30 ml Documented by: Apixaban (Eliquis) 5 mg PO Q12HR [facility]; Protocol Last Admin: 08/10/19 09:30 Dose: 5 mg Documented by: Aspirin (Baby Aspirin) 81 mg PO QDAY [facility] Last Admin: 08/10/19 09:31 Dose: 81 mg Documented by: Furosemide (Lasix) 40 mg IV BID@0600,1800 [facility] Last Admin: 08/10/19 05:00 Dose: 40 mg Documented by: Lisinopril (Zestril) 2.5 mg PO QDAY [facility] Last Admin: 08/10/19 09:33 Dose: Not Given Documented by: Metoprolol Tartrate (Metoprolol) 25 mg PO BID [facility] Last Admin: 08/10/19 09:32 Dose: 25 mg Documented by: Ondansetron HCl (Zofran) 4 mg IV Q8H PRN PRN Reason: Nausea And Vomiting Oxycodone/Acetaminophen (Percocet 5/325) 1 tab PO Q6H PRN PRN Reason: Pain, Moderate (4-6) Polyethylene Glycol (Miralax 3350) 17 gm PO BID PRN PRN Reason: constipation Last Admin: 08/10/19 02:01 Dose: 17 gm Documented by: Sodium Chloride (Sodium Chloride Flush Syringe 10 Ml) 10 ml IV BID JERRY Last Admin: 08/10/19 09:33 Dose: 10 ml Documented by: Sodium Chloride (Sodium Chloride Flush Syringe 10 Ml) 10 ml IV PRN PRN PRN Reason: LINE FLUSH Exam - Vital Signs Vital signs: Vital Signs Resp 22 08/08/19 20:17 - Physical Exam Narrative exam: General Apperance: The patient sitting in bed no acute distress HEENT: Normocephalic, atraumatic. Pupils equally round and reactive to light, extraocular movement intact, and no sclericterus or JVD or thyromegaly or nodule. Neck supple, no carotid bruit, mucous membranes moist, no exudate or erythema Heart: S1-S2, regular is rhythm Lungs: Crackles to auscultation bilaterally, breathing comfortable Abdomen: Positive bowel sounds, soft, nontender, nondistended, no organomegaly Extremities:+ 1-2 edema, no cyanosis clubbing, knee swelling Skin: no rash, nodule, warm and dry Neuro:CN 2 -12 intact, motor/sensory intact, speech is fluent Results - Lab Results 08/09/19 02:43 08/10/19 13:53 Most recent lab results Calcium 9.9 mg/dL (8.4-10.2) 08/09/19 02:43 Magnesium 2.00 mg/dL (1.7-2.3) 08/08/19 20:48 Assessment and Plan Acute Kidney injury on top of CKD: Acute on chronic systolic CHF: Hyperkalemia: Afib: DM2: HTN: COPD: Thrombocytopenia: -Cr was 1.9 in Apr 2019 -Check Urine studies, Renal US -Diurese with lasix 40 mg BID -Low K diet -Renally dose all meds -Avoid Nephrotoxic meds -Strict I/Os Edmundo Shanks MD [phone]
--- NOTE | 2019-08-10 12:17 | Progress Note ---
Assessment and Plan 69 Male Admitted with acute on chronic HFrEF 15-20% (followed by [place] cardiology) Strict I's and O's Okay to switch to PO diuresis Continue lisinopril and metoprolol NICM Persistent atrial fibrillation Telemetry atrial fibrillation in the 70s Continue metoprolol Continue oral anticoagulation NETO on Chronic kidney disease Monitor Cr History of PE/DVT Hypertension Hyperlipidemia Chronic kidney disease Anemia Diabetes COPD GERD BPH Gout Subjective Date of service: 08/10/19 Principal diagnosis: CHF Interval history: Sitting up in bed without complaints of shortness of breath or chest pain. The patient is complaining of constipation Objective Vital Signs Temp Pulse Resp BP Pulse Ox 08/10/19 10:00 82 08/10/19 09:32 82 103/72 08/10/19 09:06 99 08/10/19 07:26 98.0 F 18 103/72 08/10/19 05:06 98.0 F 76 18 125/83 97 08/10/19 00:40 97.6 F 53 L 18 113/62 95 08/09/19 22:34 78 08/09/19 21:25 66 132/71 08/09/19 21:21 97 08/09/19 20:01 97.7 F 66 20 132/71 97 08/09/19 18:00 82 08/09/19 16:48 98.1 F 18 133/77 - Physical Examination HEENT: Positive: PERRL Neck: Positive: neck supple, trachea midline Cardiac: Positive: Irregularly Regular Lungs: Positive: Normal Exam, Decreased Breath Sounds Neuro: Positive: Grossly Intact Abdomen: Positive: Soft, Active Bowel Sounds Skin: Negative: Rash, Ulceration Musculoskeletal: Normal Range of Motion Extremities: Present: edema (trace), warm - Imaging and Cardiology EKG: image reviewed Echo: report reviewed (ECHO 05/05: mild LVH, EF 15-20%, mod LAE, mod-sev RAJEEV, mod-sev RVE, RVSP 42mmHg)
[2019-08-10 14:46] LABS: Calcium 9.9 mg/dL (8.4-10.2)
[2019-08-10 19:27] LABS: Creatinine,Urine 43.2 mg/dL (0.1-20.0); Protein/Creatinine Ratio,Urine 0.21
[2019-08-10 19:29] LABS: Bilirubin,Urine NEG (Negative); Blood,Urine NEG (Negative); Color,Urine Straw (Yellow); Mucus,Urine FEW /HPF; Protein,Urine <15 mg/dL mg/dL (Negative); WBC,Urine < 1.0 /HPF (0.0-6.0)
[2019-08-10] MEDS: INSULIN LISPRO 100 UNIT/ML SUB-Q SCH (22:17)
[2019-08-11] MEDS: FUROSEMIDE 40 MG/4 ML INJ IV SCH (05:07)
[2019-08-11] MEDS: INSULIN LISPRO 100 UNIT/ML SUB-Q SCH ×4 (08:23→22:15)
[2019-08-11] MEDS: LISINOPRIL 5 MG TAB PO SCH (10:11)
[2019-08-11] MEDS: APIXABAN 5 MG TAB PO SCH ×2 (10:12→21:13)
[2019-08-11] MEDS: ASPIRIN 81 MG TAB CHEW PO SCH (10:12)
[2019-08-11] MEDS: METOPROLOL TARTRATE 25 MG TAB PO SCH ×2 (10:12→21:13)
--- NOTE | 2019-08-11 10:51 | Progress Note ---
Assessment and Plan 69 Male Admitted with acute on chronic HFrEF 15-20% (followed by [place] [facility]ology) Pt appears to be nearing/at euvolemia. Continue lisinopril, metoprolol, PO lasix. NICM Persistent atrial fibrillation Telemetry atrial fibrillation in the 70s - 80s Continue metoprolol Continue oral anticoagulation NETO on Chronic kidney disease Monitor Cr History of PE/DVT Hypertension Hyperlipidemia Chronic kidney disease Anemia Diabetes COPD GERD BPH Gout Pt may benefit from cardiac defibrillator in setting of NICMP. Pt was discharged from [facility] with LifeVest in 04/2019. However, pt discontinued LifeVest in 06/2019. Recommend for pt to address AICD candidacy as OP with [place] [facility]ology. Currently stable cardiac status. Pt may discharge from cardiology standpoint. Recommend follow up with [place] [facility] within 3-5 days of discharge. Pt verbalizes understanding. The patient has been seen in conjunction with Dr. Espinoza who agrees with the assessment and plan of care. Subjective Date of service: 08/11/19 Principal diagnosis: CHF Interval history: pt sitting at bedside, no current complaints, states SOB is resolved. tele reviewed - in AFib with CVR. Objective Last Vital Signs Temp 98.0 F 08/11/19 08:00 Pulse 73 08/11/19 10:12 Resp 20 08/11/19 08:00 BP 117/71 08/11/19 10:12 Pulse Ox 95 08/11/19 08:00 - Physical Examination General: No Apparent Distress HEENT: Positive: PERRL Neck: Positive: neck supple, trachea midline Cardiac: Positive: irregularly irregular, S1/S2 Lungs: Positive: Decreased Breath Sounds Neuro: Positive: Grossly Intact Abdomen: Positive: Soft, Active Bowel Sounds Skin: Negative: Rash, Ulceration Musculoskeletal: Normal Range of Motion Extremities: Present: edema (trace), warm - Labs and Meds Comprehensive Metabolic Panel 08/10/19 Range/Units 13:53 Sodium 141 (137-145) mmol/L Potassium 4.7 (3.6-5.0) mmol/L Chloride 96.7 L (98-107) mmol/L Carbon Dioxide 29 (22-30) mmol/L BUN 37 H (9-20) mg/dL Creatinine 2.5 H (0.8-1.5) mg/dL Glucose 98 (75-100) mg/dL Calcium 9.9 (8.4-10.2) mg/dL - Imaging and Cardiology EKG: image reviewed Echo: report reviewed (ECHO 05/05: mild LVH, EF 15-20%, mod LAE, mod-sev RAJEEV, mod-sev RVE, RVSP 42mmHg)
--- NOTE | 2019-08-11 11:07 | Progress Note ---
Assessment and Plan Assessment and plan: Patient is a 69-year-old man with a history of atrial fibrillation, BPH, DVT (BLE), PE (bilateral lungs) on Eliquis, kidney stones, insulin-dependent diabetes with neuropathy, COPD, GERD, hypertension, gout and CHF with EF of 25 to 30% with LifeVest recommendation as per April discharge summary who pr esents to [facility] ER with worsening lower extremity edema, abdominal distention, and dyspnea exertion x3 days. Patient denies cough, fever, or chest pain or COVID-19 exposure. Patient states he is compliant with all his medications except he takes spirolactone instead of the lasix. Patient does not have his current medication list with him but admits to several changes made by the [facility] since last visit here. He had 1.3 L Urine output after Lasix 60mg IV given. * pCXR 1. Cardiomegaly and pulmonary venous hypertension, unchanged. Acute on chronic systolic heart Failure, EF 25-30%: Diuresed with IV Lasix, start ADRIAN inhibitor and beta elena, aspirin, Cardiology input noted, counseling on compliance done, Atrial fibrillation: Stable, continue Eliquis, BBlocker Diabetes mellitus type 2: Check fingersticks, start sliding scale insulin, ada diet History of COPD; stable Hypertension, continue outpatient medications Chronic kidney disease stage III suspect NETO due to vasomotor nephrolology, poa defer to Nephrology Microcytic Anemia, appears chronic Thrombocytopenia: monitor CBC DVT prophylaxis reviewed, on Eliquis 08/10/19: Renal Creatinine worsening? in 2019 Cr was 1.5 and 1.9 on discharge, now Cr is 1.9, consulted Nephology and ordered Renal U/S. He complains of constipation and miralax not working, ordered Dulcolax suppository and advised he needs colonoscopy outpatient, he will consider after the Coronovirus pandemic, he has neuropathy but "aint taking it". He has a LifeVest but states, "aint using it" and it was returned in June 2019 and states he heart functioning at 35% 08/11/19: Renal function worsening, Cr up to 2.5 acute heart failure resolved, IV Lasix stopped and oral lasix reduced. Nephrology following, input noted. D/C once renal function improves History Interval history: Patient was seen and examined. Follow-up on current diagnosis of CHF. Overnight uneventful as no events directly reported to me. Patient denies any chest pain, nausea/vomiting or severe headaches. Imaging, nursing note, chart, labs and old chart reviewed. Discussed with patient. Hospitalist Physical - Physical exam Narrative exam: Gen: WDWN, NAD, Awake, Alert, Orientated HEENT: NCAT, EOMI, PERRL, OP Clear Neck: supple, no adenopathy, no thyromegaly, +JVD CVS/Heart: irreg irreg, normal S1S2, pulses present bilaterally Chest/Lungs: diminished bs bilaterally, Symmetrical chest expansion, good air entry bilaterally GI/Abdomen: soft, NTND, good bowel sounds, no guarding or rebound /Bladder: no suprapubic tenderness, no CVA or paraspinal tenderness Extermity/Skin: +ble edema, no obvious rash MSK: FROM x 4 Neuro: CN 2-12 grossly intact, no new focal deficits Psych: calm - Constitutional Vitals: Temp Pulse Resp BP Pulse Ox 98.0 F 73 20 117/71 95 08/11/19 08:00 08/11/19 10:12 08/11/19 08:00 08/11/19 10:12 08/11/19 08:00 General appearance: Present: no acute distress Results - Labs CBC & Chem 7: 08/09/19 02:43 08/10/19 13:53 Labs: Laboratory Last Values WBC 4.5 K/mm3 (4.5-11.0) 08/09/19 02:43 RBC 4.85 M/mm3 (3.65-5.03) 08/09/19 02:43 Hgb 10.8 gm/dl (11.8-15.2) L 08/09/19 02:43 Hct 34.7 % (35.5-45.6) L 08/09/19 02:43 MCV 72 fl (84-94) L 08/09/19 02:43 MCH 22 pg (28-32) L 08/09/19 02:43 MCHC 31 % (32-34) L 08/09/19 02:43 RDW 22.9 % (13.2-15.2) H 08/09/19 02:43 Plt Count 141 K/mm3 (140-440) 08/09/19 02:43 Lymph % (Auto) 27.6 % (13.4-35.0) 08/09/19 02:43 Oliver % (Auto) 11.3 % (0.0-7.3) H 08/09/19 02:43 Eos % (Auto) 4.0 % (0.0-4.3) 08/09/19 02:43 Baso % (Auto) 0.9 % (0.0-1.8) 08/09/19 02:43 Lymph # 1.2 K/mm3 (1.2-5.4) 08/09/19 02:43 Oliver # 0.5 K/mm3 (0.0-0.8) 08/09/19 02:43 Eos # 0.2 K/mm3 (0.0-0.4) 08/09/19 02:43 Baso # 0.0 K/mm3 (0.0-0.1) 08/09/19 02:43 Seg Neutrophils % 56.2 % (40.0-70.0) 08/09/19 02:43 Seg Neutrophils # 2.5 K/mm3 (1.8-7.7) 08/09/19 02:43 PT 18.2 Sec. (12.2-14.9) H 08/08/19 20:48 INR 1.48 (0.87-1.13) H 08/08/19 20:48 APTT 33.2 Sec. (24.2-36.6) 08/08/19 20:48 Sodium 141 mmol/L (137-145) 08/10/19 13:53 Potassium 4.7 mmol/L (3.6-5.0) 08/10/19 13:53 Chloride 96.7 mmol/L (98-107) L 08/10/19 13:53 Carbon Dioxide 29 mmol/L (22-30) 08/10/19 13:53 Anion Gap 20 mmol/L 08/10/19 13:53 BUN 37 mg/dL (9-20) H 08/10/19 13:53 Creatinine 2.5 mg/dL (0.8-1.5) H 08/10/19 13:53 Estimated GFR 31 ml/min 08/10/19 13:53 BUN/Creatinine Ratio 15 % 08/10/19 13:53 Glucose 98 mg/dL (75-100) 08/10/19 13:53 POC Glucose 114 (70-105) H 08/11/19 08:20 Calcium 9.9 mg/dL (8.4-10.2) 08/10/19 13:53 Magnesium 2.00 mg/dL (1.7-2.3) 08/08/19 20:48 Total Creatine Kinase 72 units/L (55-170) 08/09/19 09:44 CK-MB (CK-2) 2.0 ng/mL (0.0-4.0) 08/09/19 09:44 CK-MB (CK-2) Rel Index 2.7 (0-4) 08/09/19 09:44 Troponin T 0.013 ng/mL (0.00-0.029) 08/09/19 09:44 NT-Pro-B Natriuret Pep 3056 pg/mL (0-900) H 08/08/19 20:48 Urine Color Straw (Yellow) 08/10/19 15:10 Urine Turbidity Clear (Clear) 08/10/19 15:10 Urine pH 7.0 (5.0-7.0) 08/10/19 15:10 Ur Specific Kelly 1.008 (1.003-1.030) 08/10/19 15:10 Urine Protein <15 mg/dl mg/dL (Negative) 08/10/19 15:10 Urine Glucose (UA) Neg mg/dL (Negative) 08/10/19 15:10 Urine Ketones Neg mg/dL (Negative) 08/10/19 15:10 Urine Blood Neg (Negative) 08/10/19 15:10 Urine Nitrite Neg (Negative) 08/10/19 15:10 Urine Bilirubin Neg (Negative) 08/10/19 15:10 Urine Urobilinogen 2.0 mg/dL (<2.0) 08/10/19 15:10 Ur Leukocyte Esterase Neg (Negative) 08/10/19 15:10 Urine WBC (Auto) < 1.0 /HPF (0.0-6.0) 08/10/19 15:10 Urine RBC (Auto) 2.0 /HPF (0.0-6.0) 08/10/19 15:10 U Epithel Cells (Auto) 1.0 /HPF (0-13.0) 08/10/19 15:10 Urine Mucus Few /HPF 08/10/19 15:10 Urine Eosinophils None seen (None Seen) 08/10/19 15:10 Urine Creatinine 43.2 mg/dL (0.1-20.0) H 08/10/19 15:10 Protein/Creatinin Ratio 0.21 08/10/19 15:10 Urine Sodium 105 mmol/L 08/10/19 15:10 Urine Urea Nitrogen 278 08/10/19 15:10 Urine Total Protein 9 mg/dL (5-11.8) 08/10/19 15:10 Galeana/IV: Voiding Method Toilet IV Catheter Type [Right Hand] INT / Saline Lock Active Medications - Current Medications Current Medications: Generic Name Dose Route Start Last Admin Trade Name Freq PRN Reason Stop Dose Admin Acetaminophen 650 mg 08/09/19 02:00 08/10/19 09:46 Tylenol PO 650 mg Q4H PRN Administration Pain MILD(1-3)/Fever >100.5/LOPEZ Al Hydrox/Mg Hydrox/Simethicone 30 ml 08/09/19 20:51 08/09/19 21:25 Alum-Mag Hydrox-Simeth 481-917-84ed/5ml PO 30 ml Q4H PRN Administration Indigestion Apixaban 5 mg 08/09/19 10:00 08/11/19 10:12 Eliquis PO 5 mg Q12HR JERRY Administration Protocol Aspirin 81 mg 08/09/19 10:00 08/11/19 10:12 Baby Aspirin PO 81 mg QDAY JERRY Administration Furosemide 40 mg 08/12/19 10:00 Lasix PO QDAY [facility] Insulin Human Lispro 0 unit 08/10/19 22:00 08/11/19 08:23 Humalog SUB-Q Not Given ACHS [facility] Protocol Lisinopril 2.5 mg 08/09/19 10:00 08/11/19 10:11 Zestril PO Not Given QDAY [facility] Metoprolol Tartrate 25 mg 08/09/19 10:00 08/11/19 10:12 Metoprolol PO Not Given BID [facility] Ondansetron HCl 4 mg 08/09/19 02:00 Zofran IV Q8H PRN Nausea And Vomiting Oxycodone/Acetaminophen 1 tab 08/09/19 02:00 Percocet 5/325 PO Q6H PRN Pain, Moderate (4-6) Polyethylene Glycol 17 gm 08/10/19 01:38 08/10/19 02:01 Miralax 3350 PO 17 gm BID PRN Administration constipation Sodium Chloride 10 ml 08/09/19 10:00 08/11/19 10:12 Sodium Chloride Flush Syringe 10 Ml IV 10 ml BID JERRY Administration Sodium Chloride 10 ml 08/09/19 02:00 Sodium Chloride Flush Syringe 10 Ml IV PRN PRN LINE FLUSH
--- NOTE | 2019-08-11 13:15 | Progress Note ---
Assessment and Plan Assessment: Acute Kidney injury on top of CKD: Acute on chronic systolic CHF: Hyperkalemia: Afib: DM2: HTN: COPD: Thrombocytopenia: Plan: -No new renal labs noted for today. Serum creatinine yesterday was 2.5, admission serum creatinine was 1.8 -Serum creatinine was 1.9 in Apr 2019 -CHF-on Lasix 40 mg po BID now decreased to daily -May need to hold Lisinopril if serum creatinine continues to worsen -Renal ultrasound-pending -Urine studies reviewed, no proteinuria, no urine eosinophils seen -Low potassium diet -Renally dose all medications -Avoid Nephrotoxic meds -Monitor I/O's -Continue to monitor Subjective Date of service: 08/11/19 Principal diagnosis: CHF Interval history: Patient seen lying in bed. Reviewed renal plan of care. Objective - Vital Signs Vital signs: Vital Signs - 12hr 08/11/19 08/11/19 08/11/19 04:38 08:00 10:11 Temperature 97.9 F 98.0 F Pulse Rate 73 67 85 Respiratory 18 20 Rate Blood Pressure 117/71 109/73 Blood Pressure 124/69 [Right] O2 Sat by Pulse 98 95 Oximetry 08/11/19 10:12 Temperature Pulse Rate 73 Respiratory Rate Blood Pressure 117/71 Blood Pressure [Right] O2 Sat by Pulse Oximetry - General Appearance General appearance: well-developed, appears stated age EENT: ATNC, PERRL, hearing intact, vision intact Neck: no JVD, supple Respiratory: Present: Decreased Breath Sounds Cardiology: S1S2 Gastrointestinal: normoactive bowel sounds Integumentary: warm and dry Neurologic: alert and oriented x3 Musculoskeletal: joint swelling Psychiatric: mood/affect appropriate - Lab 08/09/19 02:43 08/10/19 13:53 Most recent lab results Calcium 9.9 mg/dL (8.4-10.2) 08/10/19 13:53 Magnesium 2.00 mg/dL (1.7-2.3) 08/08/19 20:48 Urine Creatinine 43.2 mg/dL (0.1-20.0) H 08/10/19 15:10 Urine Sodium 105 mmol/L 08/10/19 15:10 Urine Total Protein 9 mg/dL (5-11.8) 08/10/19 15:10 Medications & Allergies - Medications Allergies/Adverse Reactions: Allergies No Known Allergies Allergy (Verified 05/05/18 23:54) Home Medications: Home Medications Medication Instructions Recorded Confirmed Last Taken Type Apixaban [Eliquis] 5 mg PO Q12HR #60 tablet 01/28/19 08/09/19 1 Day Ago Rx ~08/08/19 5 MG AtorvaSTATin [Lipitor] 40 mg PO QHS #30 tablet 01/28/19 08/09/19 1 Day Ago Rx ~08/08/19 40 MG Colchicine 0.6 mg PO QDAY #30 capsule 01/28/19 08/09/19 1 Day Ago Rx ~08/08/19 0.6 MG Insulin Aspart (Nf) [NovoLOG 100 5 units SUB-Q TIDAC #90 units 01/28/19 08/09/19 1 Day Ago Rx UNITS/ML VIAL] ~08/08/19 5 UNITS Ipratropium/Albuterol Sulfate 1 puff IH BID #1 01/28/19 08/09/19 1 Day Ago Rx [Combivent Respimat] ~08/08/19 1 PUFF Metoprolol [Lopressor TAB] 50 mg PO TID #90 tablet 01/28/19 08/09/19 1 Day Ago Rx ~08/08/19 50 MG Pregabalin 50 mg PO BID #60 capsule 01/28/19 08/09/19 1 Day Ago Rx ~08/08/19 50 MG Tamsulosin [Flomax] 0.4 mg PO QDAY #30 capsule 01/28/19 08/09/19 1 Day Ago Rx ~08/08/19 0.4 MG oxyCODONE /ACETAMINOPHEN [Percocet 1 tab PO Q6H PRN #20 tablet 01/28/19 08/09/19 1 Day Ago Rx 5/325 mg] ~08/08/19 1 TAB polyethylene glycoL 3350 [Miralax 17 gm PO QDAY PRN #7 powd.pack 01/28/19 08/09/19 1 Day Ago Rx 3350] ~08/08/19 17 GM predniSONE [Deltasone] 20 mg PO QDAY #7 tablet 01/28/19 08/09/19 1 Day Ago Rx ~08/08/19 20 MG Pantoprazole [Protonix TAB] 40 mg PO QDAY #30 tablet 04/22/19 08/09/19 1 Day Ago Rx ~08/08/19 40 MG Active Medications: Generic Name Dose Route Start Last Admin Trade Name Freq PRN Reason Stop Dose Admin Acetaminophen 650 mg 08/09/19 02:00 08/10/19 09:46 Tylenol PO 650 mg Q4H PRN Administration Pain MILD(1-3)/Fever >100.5/LOPEZ Al Hydrox/Mg Hydrox/Simethicone 30 ml 08/09/19 20:51 08/09/19 21:25 Alum-Mag Hydrox-Simeth 038-412-85ms/5ml PO 30 ml Q4H PRN Administration Indigestion Apixaban 5 mg 08/09/19 10:00 08/11/19 10:12 Eliquis PO 5 mg Q12HR JERRY Administration Protocol Aspirin 81 mg 08/09/19 10:00 08/11/19 10:12 Baby Aspirin PO 81 mg QDAY JERRY Administration Furosemide 40 mg 08/12/19 10:00 Lasix PO QDAY [facility] Insulin Human Lispro 0 unit 08/10/19 22:00 08/11/19 11:56 Humalog SUB-Q Not Given ACHS [facility] Protocol Lisinopril 2.5 mg 08/09/19 10:00 08/11/19 10:11 Zestril PO Not Given QDAY [facility] Metoprolol Tartrate 25 mg 08/09/19 10:00 08/11/19 10:12 Metoprolol PO Not Given BID [facility] Ondansetron HCl 4 mg 08/09/19 02:00 Zofran IV Q8H PRN Nausea And Vomiting Oxycodone/Acetaminophen 1 tab 08/09/19 02:00 Percocet 5/325 PO Q6H PRN Pain, Moderate (4-6) Polyethylene Glycol 17 gm 08/10/19 01:38 08/10/19 02:01 Miralax 3350 PO 17 gm BID PRN Administration constipation Sodium Chloride 10 ml 08/09/19 10:00 08/11/19 10:12 Sodium Chloride Flush Syringe 10 Ml IV 10 ml BID JERRY Administration Sodium Chloride 10 ml 08/09/19 02:00 Sodium Chloride Flush Syringe 10 Ml IV PRN PRN LINE FLUSH
--- NOTE | 2019-08-11 21:45 | Ultrasound Report ---
ULTRASOUND RENAL INDICATION / CLINICAL INFORMATION: Acute kidney injury. Stage III chronic kidney disease. COMPARISON: None available. FINDINGS: RIGHT KIDNEY: - Length = 11.6 cm. [Normal > 9.0 cm] - Parenchymal Thickness = 1.5 cm. [Normal > 1.5 cm] - Echogenicity: Echogenic -- hyperechoic to liver/spleen. - Hydronephrosis: None. - Cyst or mass: Multiple simple cysts, the largest of which measures 5.3 cm. LEFT KIDNEY: - Length = 14.3 cm. [Normal > 9.0 cm] - Parenchymal Thickness = 1.8 cm. [Normal > 1.5 cm] - Echogenicity: Echogenic -- hyperechoic to liver/spleen. - Hydronephrosis: None. - Cyst or mass: Multiple simple cysts, the largest of which measures 6.3 cm. URINARY BLADDER: No significant abnormality. ADDITIONAL FINDINGS: None. IMPRESSION: 1. Findings characteristic of medical renal disease. No evidence of hydronephrosis. 2. Multiple simple renal cysts bilaterally. Renal Parenchymal Thickness Parenchyma = Cortex + Medullary Pyramid - Normal >= 1.5 cm - Mild thinning = 1.0-1.49 cm - Moderate thinning = 0.5-0.99 cm - Severe thinning < 0.5 cm Signer Name: John Colindres MD Signed: 08/11/2019 9:40 PM Workstation Name: [id number]
[2019-08-12 04:32] LABS: Basophils # (Auto) 0.1 K/mm3 (0.0-0.1); Basophils % (Auto) 1.2 % (0.0-1.8); Eosinophils # (Auto) 0.2 K/mm3 (0.0-0.4); Eosinophils % (Auto) 3.7 % (0.0-4.3); Hematocrit 38.9 % (35.5-45.6); Hemoglobin 12.3 gm/dl (11.8-15.2); Lymphocytes # (Auto) 1.4 K/mm3 (1.2-5.4); Lymphocytes % (Auto) 28.4 % (13.4-35.0); Mean Corpuscular HGB Conc 32 % (32-34); Mean Corpuscular Volume 71 fl (84-94); Monocytes # (Auto) 0.7 K/mm3 (0.0-0.8); Platelet Count 172 K/mm3 (140-440)
[2019-08-12 04:37] LABS: Red Cell Distribution Width 22.9 % (13.2-15.2)
[2019-08-12] MEDS: INSULIN LISPRO 100 UNIT/ML SUB-Q SCH ×2 (08:19→12:10)
[2019-08-12] MEDS ORDERED: FUROSEMIDE 40 MG TAB PO SCH (10:00)
[2019-08-12] MEDS: APIXABAN 5 MG TAB PO SCH (10:16)
[2019-08-12] MEDS: METOPROLOL TARTRATE 25 MG TAB PO SCH (10:16)
[2019-08-12] MEDS: ASPIRIN 81 MG TAB CHEW PO SCH (10:16)
[2019-08-12 10:17] VITALS: BP 117/70
[2019-08-12] MEDS: LISINOPRIL 5 MG TAB PO SCH (10:18)
--- NOTE | 2019-08-12 11:23 | Discharge Summary ---
Providers - Providers Date of Admission: 08/09/19 00:49 Attending physician: SAVANNAH ZELAYA MD 08/09/19 02:00 Consult to Physician [CONS] Routine Comment: Consulting Provider: JUVENAL MCCANN Physician Instructions: Reason For Exam: chf 08/10/19 07:44 Consult to Physician [CONS] Routine Comment: Consulting Provider: ALEXANDER ZAMBRANO Physician Instructions: Reason For Exam: ?ARF on CKD 3 Primary care physician: CHRIS VACA Hospitalization Reason for admission: Shortness of breath Condition: Stable Hospital course: Patient is a 69-year-old man with a history of atrial fibrillation, BPH, DVT (BLE), PE (bilateral lungs) on Eliquis, kidney stones, insulin-dependent diabetes with neuropathy, COPD, GERD, hypertension, gout and CHF with EF of 25 to 30% with LifeVest recommendation as per April discharge summary who presents to [facility] ER with worsening lower extremity edema, abdominal distention, and dyspnea exertion x3 days. Patient denies cough, fever, or chest pain or COVID-19 exposure. Patient states he is compliant with all his medications except he takes spirolactone instead of the lasix. Patient does not have his current medication list with him but admits to several changes made by the [facility] since last visit here. He had 1.3 L Urine output after Lasix 60mg IV given. * pCXR 1. Cardiomegaly and pulmonary venous hypertension, unchanged. 08/10/19: Renal Creatinine worsening? in 2019 Cr was 1.5 and 1.9 on discharge, now Cr is 1.9, consulted Nephology and ordered Renal U/S. He complains of constipation and miralax not working, ordered Dulcolax suppository and advised he needs colonoscopy outpatient, he will consider after the Coronovirus pandemic, he has neuropathy but "aint taking it". He has a LifeVest but states, "aint using it" and it was returned in June 2019 and states he heart functioning at 35% 08/11/19: Renal function worsening, Cr up to 2.5 acute heart failure resolved, IV Lasix stopped and oral lasix reduced. Nephrology following, input noted. D/C once renal function improves 08/11: Patient this a.m. continues to clinically improve. Lasix that was adjusted to p.o. yesterday with remarkable improvement in renal function showing a downward trend. Had extensive discussion with the patient about the LifeVest he continues to vehemently refused. I also advised him that he will need a discussion with his dry placer machine operator about AICD I discussed the risk of with the patient and the reason the LifeVest was recommended and ordered for him last time. He will review with his dry placer machine operator. He is clinically stable at this time for discharge I discussed changes in his medication with him he verbalized understanding he needs to follow-up with telephone lines repairer to ensure continued improvement in renal function. Acute on chronic systolic heart Failure, EF 25-30%: Diuresed with IV Lasix, subsequently changed to p.o. Lasix start ADRIAN inhibitor and beta elena, aspirin, Cardiology input noted, counseling on compliance done, Atrial fibrillation: Stable, continue Eliquis, BBlocker Diabetes mellitus type 2: Check fingersticks, start sliding scale insulin, ada diet History of COPD; stable Hypertension, continue outpatient medications Chronic kidney disease stage III suspect NETO due to vasomotor nephrolology, poa defer to Nephrology Microcytic Anemia, appears chronic Thrombocytopenia: monitor CBC Disposition: TO HOME OR SELFCARE Time spent for discharge: 35 MINS Core Measure Documentation - Palliative Care Palliative Care/ Comfort Measures: Not Applicable - Core Measures Any of the following diagnoses?: heart failure, none - Heart Failure Discharge Requirements ADRIAN/ARB for LVSD if EF <40%: Yes Reason for no ADRIAN/ARB: Renal impairment Beta elena at discharge: Yes Exam - Physical Exam Narrative exam: Narrative exam: Gen: WDWN, NAD, Awake, Alert, Orientated, not on oxygen no acute distress HEENT: NCAT, EOMI, PERRL, OP Clear Neck: supple, no adenopathy, no thyromegaly, +JVD CVS/Heart: irreg irreg, normal S1S2, pulses present bilaterally Chest/Lungs: diminished bs bilaterally, Symmetrical chest expansion, good air entry bilaterally GI/Abdomen: soft, NTND, good bowel sounds, no guarding or rebound /Bladder: no suprapubic tenderness, no CVA or paraspinal tenderness Extermity/Skin: +ble edema trace, no obvious rash MSK: FROM x 4 Neuro: CN 2-12 grossly intact, no new focal deficits Psych: calm - Constitutional Vitals: Temp Pulse Resp BP Pulse Ox 98.3 F 83 20 117/70 99 08/12/19 07:49 08/12/19 10:18 08/12/19 07:49 08/12/19 10:18 08/12/19 07:49 Plan Activity: advance as tolerated, fall precautions Diet: low salt, diabetic Special Instructions: restrict fluid intake to (1200CC/DAY), record daily weights Additional Instructions: FOLLOW WITH [facility] OR WITH DOCTORS THAT SAW PATIENT AT THE HOSPITAL IF UNABLE TO [facility]. outpatient evaluation for AICD recommended. Hold colchine for now untill renal doctor ok with taking it Follow up with: CHRIS VACA MD [Primary Care Provider] - 3-5 Days ANNABEL WILLARD MD [Staff Physician] - 7 Days BETITO MUÑIZ MD [Staff Physician] - 7 Days Prescriptions: Aspirin [Aspirin BABY CHEW TAB] 81 mg PO QDAY #30 tab.chew Furosemide [Lasix TAB] 40 mg PO QDAY #30 tablet Metoprolol [Lopressor TAB] 25 mg PO BID #60 tablet lisinopriL [Zestril TAB] 2.5 mg PO QDAY #30 tablet
[2019-08-12] MEDS: POLYETHYLENE GLYCOL 3350 17 GM POWDER PO PRN (13:20)
--- NOTE | 2019-08-12 14:32 | Progress Note ---
Assessment and Plan Assessment: Acute Kidney injury on top of CKD: Acute on chronic systolic CHF: Hyperkalemia: Afib: DM2 on insulin: HTN: COPD: Thrombocytopenia: Plan: -Renal function reviewed, SCr level was 2.2 today, yesterday's SCr level was 2.5 -Most recent serum creatinine level prior to admission was 1.9 on 04/22/19 -On lasix 40 mg po daily -On low dose lisinopril 2.5 mg po daily -Ok for pt to be discharged from nephrology standpoint if medically cleared, will need to follow up with us in the office -Renal ultrasound suggestive of CKD, showed bilateral simple renal cysts, no hydronephrosis -Urine studies reviewed, no proteinuria, no urine eosinophils seen -Low potassium diet -Renally dose all medications -Renal plan d/w Dr Olvera Subjective Date of service: 08/12/19 Principal diagnosis: CHF Interval history: Pt seen in bed, states his blood pressure was a little lower today at 107 sy stolic over 58, states he felt a little weak, most recent vital signs in computer were 117/50 at 1018 today, pt states he's starting to feel better now. Objective - Vital Signs Vital signs: Vital Signs - 12hr 08/12/19 08/12/19 08/12/19 04:00 04:29 07:49 Temperature 98.4 F 98.3 F Pulse Rate 82 76 Respiratory 16 20 Rate Blood Pressure 112/84 128/82 O2 Sat by Pulse 98 99 Oximetry 08/12/19 08/12/19 08/12/19 10:00 10:16 10:18 Temperature Pulse Rate 77 83 83 Respiratory 19 Rate Blood Pressure 117/70 117/70 O2 Sat by Pulse Oximetry - General Appearance General appearance: well-developed EENT: ATNC Neck: no JVD Respiratory: Present: Clear to Ascultation Cardiology: regular, S1S2 Gastrointestinal: normoactive bowel sounds, no tenderness Integumentary: warm and dry Neurologic: alert and oriented x3 Musculoskeletal: other (no edema to BLE) Psychiatric: cooperative - Lab 08/12/19 03:32 08/12/19 03:32 Most recent lab results Calcium 9.0 mg/dL (8.4-10.2) 08/12/19 03:32 Phosphorus 3.80 mg/dL (2.5-4.5) 08/12/19 03:32 Magnesium 2.00 mg/dL (1.7-2.3) 08/08/19 20:48 Urine Creatinine 43.2 mg/dL (0.1-20.0) H 08/10/19 15:10 Urine Sodium 105 mmol/L 08/10/19 15:10 Urine Total Protein 9 mg/dL (5-11.8) 08/10/19 15:10 Medications & Allergies - Medications Allergies/Adverse Reactions: Allergies No Known Allergies Allergy (Verified 05/05/18 23:54) Home Medications: Home Medications Medication Instructions Recorded Confirmed Last Taken Type Apixaban [Eliquis] 5 mg PO Q12HR #60 tablet 01/28/19 08/09/19 1 Day Ago Rx ~08/08/19 5 MG AtorvaSTATin [Lipitor] 40 mg PO QHS #30 tablet 01/28/19 08/09/19 1 Day Ago Rx ~08/08/19 40 MG Insulin Aspart (Nf) [NovoLOG 100 5 units SUB-Q TIDAC #90 units 01/28/19 08/09/19 1 Day Ago Rx UNITS/ML VIAL] ~08/08/19 5 UNITS Ipratropium/Albuterol Sulfate 1 puff IH BID #1 01/28/19 08/09/19 1 Day Ago Rx [Combivent Respimat] ~08/08/19 1 PUFF Pregabalin 50 mg PO BID #60 capsule 01/28/19 08/09/19 1 Day Ago Rx ~08/08/19 50 MG Tamsulosin [Flomax] 0.4 mg PO QDAY #30 capsule 01/28/19 08/09/19 1 Day Ago Rx ~08/08/19 0.4 MG oxyCODONE /ACETAMINOPHEN [Percocet 1 tab PO Q6H PRN #20 tablet 01/28/19 08/09/19 1 Day Ago Rx 5/325 mg] ~08/08/19 1 TAB polyethylene glycoL 3350 [Miralax 17 gm PO QDAY PRN #7 powd.pack 01/28/19 08/09/19 1 Day Ago Rx 3350] ~08/08/19 17 GM predniSONE [Deltasone] 20 mg PO QDAY #7 tablet 01/28/19 08/09/19 1 Day Ago Rx ~08/08/19 20 MG Pantoprazole [Protonix TAB] 40 mg PO QDAY #30 tablet 04/22/19 08/09/19 1 Day Ago Rx ~08/08/19 40 MG Aspirin [Aspirin BABY CHEW TAB] 81 mg PO QDAY #30 tab.chew 08/12/19 Unknown Rx Furosemide [Lasix TAB] 40 mg PO QDAY #30 tablet 08/12/19 Unknown Rx Metoprolol [Lopressor TAB] 25 mg PO BID #60 tablet 08/12/19 Unknown Rx lisinopriL [Zestril TAB] 2.5 mg PO QDAY #30 tablet 08/12/19 Unknown Rx Active Medications: Generic Name Dose Route Start Last Admin Trade Name Freq PRN Reason Stop Dose Admin Acetaminophen 650 mg 08/09/19 02:00 08/10/19 09:46 Tylenol PO 650 mg Q4H PRN Administration Pain MILD(1-3)/Fever >100.5/LOPEZ Al Hydrox/Mg Hydrox/Simethicone 30 ml 08/09/19 20:51 08/09/19 21:25 Alum-Mag Hydrox-Simeth 251-559-02db/5ml PO 30 ml Q4H PRN Administration Indigestion Apixaban 5 mg 08/09/19 10:00 08/12/19 10:16 Eliquis PO 5 mg Q12HR JERRY Administration Protocol Aspirin 81 mg 08/09/19 10:00 08/12/19 10:16 Baby Aspirin PO 81 mg QDAY JERRY Administration Furosemide 40 mg 08/12/19 10:00 08/12/19 10:17 Lasix PO 40 mg QDAY JERRY Administration Insulin Human Lispro 0 unit 08/10/19 22:00 08/12/19 12:10 Humalog SUB-Q Not Given ACHS JERRY Protocol Lisinopril 2.5 mg 08/09/19 10:00 08/12/19 10:18 Zestril PO Not Given QDAY JERRY Metoprolol Tartrate 25 mg 08/09/19 10:00 08/12/19 10:16 Metoprolol PO 25 mg BID JERRY Administration Ondansetron HCl 4 mg 08/09/19 02:00 Zofran IV Q8H PRN Nausea And Vomiting Oxycodone/Acetaminophen 1 tab 08/09/19 02:00 08/12/19 13:20 Percocet 5/325 PO 1 tab Q6H PRN Administration Pain, Moderate (4-6) Polyethylene Glycol 17 gm 08/10/19 01:38 08/12/19 13:20 Miralax 3350 PO 17 gm BID PRN Administration constipation Sodium Chloride 10 ml 08/09/19 10:00 08/12/19 10:17 Sodium Chloride Flush Syringe 10 Ml IV 10 ml BID JERRY Administration Sodium Chloride 10 ml 08/09/19 02:00 Sodium Chloride Flush Syringe 10 Ml IV PRN PRN LINE FLUSH
== END 2019-08-12 15:40 | disposition home or self-care (01) | DRG 291 ==
LOC: ED 20:08 → 4A 08-09 00:49
PROVIDERS: ADMIT Internal Medicine; ATTEND Internal Medicine
DX: I13.0 Hypertensive heart and chronic kidney disease with heart failure and stage 1 through stage 4 chronic kidney disease, or unspecified chronic kidney disease (principal); N17.0 Acute kidney failure with tubular necrosis; I50.23 Acute on chronic systolic (congestive) heart failure; I48.19 Other persistent atrial fibrillation; K21.9 Gastro-esophageal reflux disease without esophagitis; D64.9 Anemia, unspecified; J44.9 Chronic obstructive pulmonary disease, unspecified; M10.9 Gout, unspecified; R60.0 Localized edema; N40.0 Benign prostatic hyperplasia without lower urinary tract symptoms; D69.6 Thrombocytopenia, unspecified; E11.22 Type 2 diabetes mellitus with diabetic chronic kidney disease; N18.3 Chronic kidney disease, stage 3 (moderate); I42.8 Other cardiomyopathies; E78.5 Hyperlipidemia, unspecified; E11.40 Type 2 diabetes mellitus with diabetic neuropathy, unspecified; Z87.442 Personal history of urinary calculi; Z87.891 Personal history of nicotine dependence; Z79.01 Long term (current) use of anticoagulants; Z82.49 Family history of ischemic heart disease and other diseases of the circulatory system; Z86.718 Personal history of other venous thrombosis and embolism; Z86.711 Personal history of pulmonary embolism; Z79.4 Long term (current) use of insulin; Z79.899 Other long term (current) drug therapy
CPT/HCPCS: 36415; 71045; 76770; 80048; 81001; 82550; 82553; 82570; 82962; 83735; 83880; 84100; 84156; 84300; 84484; 84520; 85025; 85610; 85730; 89050; 93005; G0378; J1940

== ENCOUNTER 2019-12-08 01:35 | Inpatient (IN) | payer MEDICARE ==
--- NOTE | 2019-12-08 02:23 | Emergency Department Report ---
ED Psych HPI - General Chief Complaint: Psych Stated Complaint: HALLUCINATION Time Seen by Provider: 12/08/19 02:10 Source: patient, EMS Mode of arrival: Stretcher Limitations: No Limitations - History of Present Illness Initial Comments: Chief complaint: "I am seeing things that are not really there." This is a 69-year-old male with history of atrial fibrillation, DVT, pulmonary embolism, kidney stones, insulin-dependent diabetes, COPD, GERD, hypertension, CHF, gout who presents with visual hallucinations. He has seen ants bugs crawling on the floor. He saw a person that he knows that is not in the room. Today, he felt as if the [place] of his home was closing in on him. He states that he knows that these hallucinations are not real. He thinks that he "overdid it with the COPD medicine". He states that he does not currently have any hallucinations At this time after arriving to the ED via EMS. No history of mental health disease. He has been clean of substance abuse since 1993. 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 However he has abstained from polysubstance abuse for 26 years. He has been in his normal state of health. He denies headache. He denies numbness or weakness. He denies chest pain. He denies suicidal homicidal ideation. MD Complaint: other (Visual hallucinations) -: Gradual, This evening Associated Psychiatric Symptoms: visual hallucinations History of same: No Quality: resolved prior to arrival Improves With: none Worsens With: none Associated Symptoms: denies other symptoms Treatments Prior to Arrival: none - Related Data Previous Rx's Medication Instructions Recorded Last Taken Type Apixaban [Eliquis] 5 mg PO Q12HR #60 tablet 01/28/19 1 Day Ago Rx ~08/08/19 5 MG AtorvaSTATin [Lipitor] 40 mg PO QHS #30 tablet 01/28/19 1 Day Ago Rx ~08/08/19 40 MG Insulin Aspart (Nf) [NovoLOG 100 5 units SUB-Q TIDAC #90 units 01/28/19 1 Day Ago Rx UNITS/ML VIAL] ~08/08/19 5 UNITS Ipratropium/Albuterol Sulfate 1 puff IH BID #1 01/28/19 1 Day Ago Rx [Combivent Respimat] ~08/08/19 1 PUFF Pregabalin 50 mg PO BID #60 capsule 01/28/19 1 Day Ago Rx ~08/08/19 50 MG Tamsulosin [Flomax] 0.4 mg PO QDAY #30 capsule 01/28/19 1 Day Ago Rx ~08/08/19 0.4 MG oxyCODONE /ACETAMINOPHEN [Percocet 1 tab PO Q6H PRN #20 tablet 01/28/19 1 Day Ago Rx 5/325 mg] ~08/08/19 1 TAB polyethylene glycoL 3350 [Miralax 17 gm PO QDAY PRN #7 powd.pack 01/28/19 1 Day Ago Rx 3350] ~08/08/19 17 GM predniSONE [Deltasone] 20 mg PO QDAY #7 tablet 01/28/19 1 Day Ago Rx ~08/08/19 20 MG Pantoprazole [Protonix TAB] 40 mg PO QDAY #30 tablet 04/22/19 1 Day Ago Rx ~08/08/19 40 MG Aspirin [Aspirin BABY CHEW TAB] 81 mg PO QDAY #30 tab.chew 08/12/19 Unknown Rx Furosemide [Lasix TAB] 40 mg PO QDAY #30 tablet 08/12/19 Unknown Rx Metoprolol [Lopressor TAB] 25 mg PO BID #60 tablet 08/12/19 Unknown Rx lisinopriL [Zestril TAB] 2.5 mg PO QDAY #30 tablet 08/12/19 Unknown Rx Allergies Allergy/AdvReac Type Severity Reaction Status Date / Time No Known Allergies Allergy Verified 05/05/18 23:54 ED Review of Systems ROS: Stated complaint: HALLUCINATION Other details as noted in HPI Comment: All other systems reviewed and negative Constitutional: denies: fever, malaise Respiratory: denies: cough, shortness of breath Cardiovascular: denies: chest pain Psychiatric: visual hallucinations. denies: anxiety, depression, auditory hallucinations, homicidal thoughts, suicidal thoughts ED Past Medical Hx - Past Medical History Previous Medical History?: Yes Hx Hypertension: Yes Hx Congestive Heart Failure: Yes Hx Diabetes: Yes Hx Deep Vein Thrombosis: Yes (both legs) Hx Pulmonary Embolism: Yes (william lungs) Hx Kidney Stones: Yes Hx Asthma: No Hx COPD: Yes Additional medical history: neuropathy. a-fib : Chronic, persistent gout - Surgical History Past Surgical History?: Yes Additional Surgical History: neck and back surgery 2011 - Social History Smoking Status: Never Smoker Substance Use Type: None - Medications Home Medications: Home Medications Medication Instructions Recorded Confirmed Last Taken Type Apixaban [Eliquis] 5 mg PO Q12HR #60 tablet 01/28/19 08/09/19 1 Day Ago Rx ~08/08/19 5 MG AtorvaSTATin [Lipitor] 40 mg PO QHS #30 tablet 01/28/19 08/09/19 1 Day Ago Rx ~08/08/19 40 MG Insulin Aspart (Nf) [NovoLOG 100 5 units SUB-Q TIDAC #90 units 01/28/19 08/09/19 1 Day Ago Rx UNITS/ML VIAL] ~08/08/19 5 UNITS Ipratropium/Albuterol Sulfate 1 puff IH BID #1 01/28/19 08/09/19 1 Day Ago Rx [Combivent Respimat] ~08/08/19 1 PUFF Pregabalin 50 mg PO BID #60 capsule 01/28/19 08/09/19 1 Day Ago Rx ~08/08/19 50 MG Tamsulosin [Flomax] 0.4 mg PO QDAY #30 capsule 01/28/19 08/09/19 1 Day Ago Rx ~08/08/19 0.4 MG oxyCODONE /ACETAMINOPHEN [Percocet 1 tab PO Q6H PRN #20 tablet 01/28/19 08/09/19 1 Day Ago Rx 5/325 mg] ~08/08/19 1 TAB polyethylene glycoL 3350 [Miralax 17 gm PO QDAY PRN #7 powd.pack 01/28/19 08/09/19 1 Day Ago Rx 3350] ~08/08/19 17 GM predniSONE [Deltasone] 20 mg PO QDAY #7 tablet 01/28/19 08/09/19 1 Day Ago Rx ~08/08/19 20 MG Pantoprazole [Protonix TAB] 40 mg PO QDAY #30 tablet 04/22/19 08/09/19 1 Day Ago Rx ~08/08/19 40 MG Aspirin [Aspirin BABY CHEW TAB] 81 mg PO QDAY #30 tab.chew 08/12/19 Unknown Rx Furosemide [Lasix TAB] 40 mg PO QDAY #30 tablet 08/12/19 Unknown Rx Metoprolol [Lopressor TAB] 25 mg PO BID #60 tablet 08/12/19 Unknown Rx lisinopriL [Zestril TAB] 2.5 mg PO QDAY #30 tablet 08/12/19 Unknown Rx ED Physical Exam - General Limitations: Physical Limitation General appearance: alert, in no apparent distress, other (Pleasant jovial talkative insightful) - Head Head exam: Present: atraumatic, normocephalic - Eye Eye exam: Present: normal appearance - ENT ENT exam: Present: mucous membranes moist - Neck Neck exam: Present: normal inspection, full ROM - Respiratory Respiratory exam: Present: normal lung sounds bilaterally. Absent: respiratory distress, wheezes, rales, rhonchi - Cardiovascular Cardiovascular Exam: Present: regular rate, normal rhythm, normal heart sounds. Absent: systolic murmur, diastolic murmur, rubs, gallop - GI/Abdominal GI/Abdominal exam: Present: soft, normal bowel sounds. Absent: distended, tenderness, guarding, rebound - Rectal Rectal exam: Present: deferred - Extremities Exam Extremities exam: Present: pedal edema - Neurological Exam Neurological exam: Present: alert, oriented X3 - Psychiatric Psychiatric exam: Present: normal affect, normal mood, other (Patient is insightful. Not responding to internal stimuli). Absent: depressed, agitated, anxious, flat affect, manic, homicidal ideation, suicidal ideation - Skin Skin exam: Present: warm, dry, intact, normal color. Absent: rash ED Course Vital Signs 12/08/19 01:48 Temperature 98.0 F Pulse Rate 91 H Respiratory 18 Rate Blood Pressure 148/83 [Right] O2 Sat by Pulse 94 Oximetry ED Medical Decision Making - Lab Data Result diagrams: 12/08/19 01:50 12/08/19 01:50 - EKG Data 12/08/19 04:05 EKG obtained 0400 EKG interpreted by me Atrial fibrillation ventricular rate 80 bpm normal axis prolonged QTC no ST elevation nonspecific T wave pattern - Radiology Data Radiology results: report reviewed, image reviewed CT head: No acute process: - Medical Decision Making 1. Mr. Robison is a 69-year-old male with several medical conditions who presents with visual hallucinations. He is insightful. He is cooperative. I agree with patient's assessment. He likely experienced acute delirium due to medications. He currently is not a harm to himself or others. I do not suspect acute psychosis or dementia. He is quite articulate. I reviewed ABG results. No indication of hypercapnia 2. Acute CHF exacerbation: Pulmonary edema pleural effusion seen on chest radiograph Admitted to the hospital service for further treatment evaluation Critical care attestation.: If time is entered above; I have spent that time in minutes in the direct care of this critically ill patient, excluding procedure time. ED Disposition Clinical Impression: Acute delirium, Visual hallucinations, Polypharmacy, Acute exacerbation of CHF (congestive heart failure), Acute on chronic HFrEF (heart failure with reduced ejection fraction) Disposition: OP ADMIT IP TO THIS HOSP Is pt being admited?: Yes Does the pt Need Aspirin: No Condition: Stable Referrals: PRIMARY CARE, [Primary Care Provider] - 3-5 Days
[2019-12-08] MEDS ORDERED: oxyCODONE /ACETAMINOPHEN 5-325MG TAB PO ONE (02:35)
[2019-12-08 02:47] LABS: Basophils # (Auto) 0.1 K/mm3 (0.0-0.1); Basophils % (Auto) 1.1 % (0.0-1.8); Eosinophils # (Auto) 0.1 K/mm3 (0.0-0.4); Eosinophils % (Auto) 2.7 % (0.0-4.3); Hematocrit 33.4 % (35.5-45.6); Hemoglobin 10.5 gm/dl (11.8-15.2); Lymphocytes # (Auto) 0.8 K/mm3 (1.2-5.4); Lymphocytes % (Auto) 14.8 % (13.4-35.0); Mean Corpuscular HGB Conc 31 % (32-34); Mean Corpuscular Volume 77 fl (84-94); Monocytes # (Auto) 0.5 K/mm3 (0.0-0.8); Monocytes % (Auto) 10.1 % (0.0-7.3); Platelet Count 185 K/mm3 (140-440); Red Blood Count 4.32 M/mm3 (3.65-5.03)
[2019-12-08 02:51] LABS: Red Cell Distribution Width 24.3 % (13.2-15.2)
[2019-12-08 02:56] LABS: Albumin 3.9 g/dL (3.9-5); Calcium 8.9 mg/dL (8.4-10.2)
[2019-12-08 03:16] LABS: Amphetamine Screen,Urine PRESUMPTIVE NEGATIVE; Benzodiazepines Screen,Urine PRESUMPTIVE NEGATIVE; Cannabinoid Screen,Urine PRESUMPTIVE NEGATIVE; Cocaine Screen,Urine PRESUMPTIVE NEGATIVE; Methadone Screen,Urine PRESUMPTIVE NEGATIVE; Opiate Screen,Urine PRESUMPTIVE NEGATIVE
[2019-12-08 03:23] LABS: Bacteria,Urine 1+ /HPF (Negative); Bilirubin,Urine NEG (Negative); Blood,Urine SM (Negative); Color,Urine Yellow (Yellow); Mucus,Urine FEW /HPF
--- NOTE | 2019-12-08 03:25 | Cat Scan Report ---
Examination: CT of the head without contrast Clinical information: Altered mental status. Hallucinations. Comparison: CT of the head without contrast, 09/05/2018 Technical: Multiple axial CT images of the head were obtained without intravenous contrast. Sagittal and coronal reformats were obtained. All CTs at this facility utilize dose reduction techniques inc luding automated exposure control, iterative reconstruction and weight based dosing when appropriate to reduce patient radiation dose to as low as reasonable achievable. Findings: There is no CT evidence of acute intracranial hemorrhage or large territorial infarct. The ventricular system remains normal in size. Mild generalized parenchymal atrophy is again noted. There is no evidence of extra-axial fluid collection. Evaluation of bony structures demonstrates no evidence of acute bony abnormality. The visualized para nasal sinuses and mastoid air cells are clear. Impression: 1. No CT evidence of acute intracranial process. 2. Mild generalized atrophy. Signer Name: Emily Johnston MD Signed: 12/08/2019 3:21 AM Workstation Name: [id number]
[2019-12-08 03:34] LABS: ABG Base Excess -1.6 mmol/L (-2.0-3.0); ABG HCO3 23.3 mmol/L (20.0-26.0); ABG Methemoglobin 0.6 % (0.0-1.5); ABG Oxygen Saturation 87.5 % (95.0-99.0); ABG PCO2 39.9 mm Hg; ABG PH 7.383 pH Units (7.350-7.450); ABG PO2 56.8 mm Hg (80.0-90.0)
--- NOTE | 2019-12-08 03:40 | XRay Report ---
CHEST 1 VIEW, 12/08/2019 3:15 AM CLINICAL INFORMATION/INDICATION: Altered mental status COMPARISON: Chest radiograph, 08/08/2019 FINDINGS: SUPPORT DEVICES: None. HEART: There is stable moderate enlargement of the cardiac silhouette. LUNGS/PLEURA: Mild bilateral interstitial edema is again noted without focal airspace consolidation. There are trace bilateral pleural effusions. ADDITIONAL FINDINGS: No additional acute findings. IMPRESSION: 1. Stable moderate enlargement of the cardiac silhouette with mild interstitial edema and small bilat eral pleural effusions. Signer Name: Emily Johnston MD Signed: 12/08/2019 3:36 AM Workstation Name: [id number]
[2019-12-08] MEDS ORDERED: ONDANSETRON 4 MG/2 ML INJ IV PRN (05:05)
[2019-12-08] MEDS ORDERED: ACETAMINOPHEN 325 MG TAB PO PRN (05:05)
[2019-12-08] MEDS ORDERED: MAGNESIUM HYDROXIDE (MOM) ORAL LIQD UDC PO PRN (05:05)
--- NOTE | 2019-12-08 05:17 | History and Physical Report ---
History of Present Illness Date of examination: 12/08/19 Date of admission: 12/08/19 04:06 Chief complaint: Shortness of Breath History of present illness: 69-year-old -[place] male with known history of COPD, atrial fibrillation, CHF with ejection fraction of 15 to 20% as of April 2019, diabetes mellitus, gallops, presenting to the emergency room today stating that he has been having some visual hallucinations. He has seen bugs crawling on both on the wall and on the floor. He also feels that the [place] in his home is closing up on him. He states he may have taking more than enough of his COPD medication. Patient states his hallucination had resolved upon arrival in the emergency room. He has no known history of mental illness, no history of illicit drug use. He denies any fever or chills, no chest pain, no nausea vomiting, no abdominal pain no diarrhea. He denies any headache ,denies any suicidal or homicidal ideations. Work-up in the emergency room today reveals some pulmonary vascular congestion and pleural effusion on the chest x-ray, elevated BNP. Patient was also found to be is slightly hypoxic. Past History Past Medical History: atrial fib, COPD, diabetes, heart failure, hyperlipidemia Past Surgical History: Other (Neck and Back surgery) Social history: no significant social history Family history: hypertension Medications and Allergies Allergies Allergy/AdvReac Type Severity Reaction Status Date / Time No Known Allergies Allergy Verified 05/05/18 23:54 Home Medications Medication Instructions Recorded Confirmed Last Taken Type Apixaban [Eliquis] 5 mg PO Q12HR #60 tablet 01/28/19 08/09/19 1 Day Ago Rx ~08/08/19 5 MG AtorvaSTATin [Lipitor] 40 mg PO QHS #30 tablet 01/28/19 08/09/19 1 Day Ago Rx ~08/08/19 40 MG Insulin Aspart (Nf) [NovoLOG 100 5 units SUB-Q TIDAC #90 units 01/28/19 08/09/19 1 Day Ago Rx UNITS/ML VIAL] ~08/08/19 5 UNITS Ipratropium/Albuterol Sulfate 1 puff IH BID #1 01/28/19 08/09/19 1 Day Ago Rx [Combivent Respimat] ~08/08/19 1 PUFF Pregabalin 50 mg PO BID #60 capsule 01/28/19 08/09/19 1 Day Ago Rx ~08/08/19 50 MG Tamsulosin [Flomax] 0.4 mg PO QDAY #30 capsule 01/28/19 08/09/19 1 Day Ago Rx ~08/08/19 0.4 MG oxyCODONE /ACETAMINOPHEN [Percocet 1 tab PO Q6H PRN #20 tablet 01/28/19 08/09/19 1 Day Ago Rx 5/325 mg] ~08/08/19 1 TAB polyethylene glycoL 3350 [Miralax 17 gm PO QDAY PRN #7 powd.pack 01/28/19 08/09/19 1 Day Ago Rx 3350] ~08/08/19 17 GM predniSONE [Deltasone] 20 mg PO QDAY #7 tablet 01/28/19 08/09/19 1 Day Ago Rx ~08/08/19 20 MG Pantoprazole [Protonix TAB] 40 mg PO QDAY #30 tablet 04/22/19 08/09/19 1 Day Ago Rx ~08/08/19 40 MG Aspirin [Aspirin BABY CHEW TAB] 81 mg PO QDAY #30 tab.chew 08/12/19 Unknown Rx Furosemide [Lasix TAB] 40 mg PO QDAY #30 tablet 08/12/19 Unknown Rx Metoprolol [Lopressor TAB] 25 mg PO BID #60 tablet 08/12/19 Unknown Rx lisinopriL [Zestril TAB] 2.5 mg PO QDAY #30 tablet 08/12/19 Unknown Rx Active Meds: Active Medications Acetaminophen (Tylenol) 650 mg PO Q4H PRN PRN Reason: Pain MILD(1-3)/Fever >100.5/LOPEZ Furosemide (Lasix) 40 mg IV BID@0600,1800 JERRY Magnesium Hydroxide (Milk Of Magnesia) 30 ml PO Q4H PRN PRN Reason: Constipation Ondansetron HCl (Zofran) 4 mg IV Q8H PRN PRN Reason: Nausea And Vomiting Sodium Chloride (Sodium Chloride Flush Syringe 10 Ml) 10 ml IV BID JERRY Sodium Chloride (Sodium Chloride Flush Syringe 10 Ml) 10 ml IV PRN PRN PRN Reason: LINE FLUSH Review of Systems Constitutional: no fever, no chills Ears, nose, mouth and throat: no nasal congestion, no sore throat Cardiovascular: no chest pain, no palpitations Respiratory: no cough, no shortness of breath Gastrointestinal: no nausea, no vomiting, no diarrhea Genitourinary Male: no dysuria, no hematuria, no flank pain Musculoskeletal: no neck pain, no low back pain Integumentary: no rash, no pruritis Neurological: no headaches, no confusion Psychiatric: hallucinations (Visual), no anxiety, no depression Exam - Constitutional Vitals: Temp Pulse Resp BP Pulse Ox 98.0 F 91 H 18 143/86 91 12/08/19 01:48 12/08/19 04:20 12/08/19 04:20 12/08/19 04:20 12/08/19 04:20 General appearance: Present: no acute distress, well-nourished - EENT Eyes: Present: PERRL, EOM intact. Absent: scleral icterus ENT: hearing intact, clear oral mucosa, dentition normal - Neck Neck: Present: supple, normal ROM - Respiratory Respiratory effort: normal Respiratory: bilateral: rales - Cardiovascular Rhythm: regular Heart Sounds: Present: S1 & S2. Absent: gallop, systolic murmur, diastolic murmur, rub - Extremities Extremities: no ischemia, pulses intact, pulses symmetrical, Full ROM Extremity abnormal: edema (1+ bilateral ankle edema) Peripheral Pulses: within normal limits - Abdominal General gastrointestinal: Present: soft, non-tender, non-distended, normal bowel sounds. Absent: mass - Integumentary Integumentary: Present: clear, warm, dry. Absent: rash - Musculoskeletal Musculoskeletal: strength equal bilaterally - Psychiatric Psychiatric: appropriate mood/affect, intact judgment & insight, memory intact, cooperative - Neurologic Neurologic: CNII-XII intact, no focal deficits, moves all extremities Results - Labs CBC & Chem 7: 12/08/19 01:50 12/08/19 01:50 Labs: Abnormal lab results 12/08/19 12/08/19 12/08/19 Range/Units 01:50 01:50 01:50 Hgb (11.8-15.2) gm/dl Hct (35.5-45.6) % MCV (84-94) fl MCH (28-32) pg MCHC (32-34) % RDW (13.2-15.2) % Boundary % (Auto) (0.0-7.3) % Lymph # (1.2-5.4) K/mm3 Seg Neutrophils % (40.0-70.0) % ABG pO2 (80.0-90.0) mm Hg ABG O2 Saturation (95.0-99.0) % ABG Hemoglobin (14.0-18.0) gm/dl Oxyhemoglobin (95.0-99.0) % Chloride 107.5 H (98-107) mmol/L BUN 24 H (9-20) mg/dL Creatinine 1.9 H (0.8-1.3) mg/dL Glucose 128 H (75-100) mg/dL NT-Pro-B Natriuret Pep (0-900) pg/mL Salicylates < 0.3 L (2.8-20.0) mg/dL Acetaminophen 5.0 L (10.0-30.0) ug/mL 12/08/19 12/08/19 12/08/19 Range/Units 01:50 03:25 03:53 Hgb 10.5 L (11.8-15.2) gm/dl Hct 33.4 L (35.5-45.6) % MCV 77 L (84-94) fl MCH 24 L (28-32) pg MCHC 31 L (32-34) % RDW 24.3 H (13.2-15.2) % Boundary % (Auto) 10.1 H (0.0-7.3) % Lymph # 0.8 L (1.2-5.4) K/mm3 Seg Neutrophils % 71.3 H (40.0-70.0) % ABG pO2 56.8 L (80.0-90.0) mm Hg ABG O2 Saturation 87.5 L (95.0-99.0) % ABG Hemoglobin 10.5 L (14.0-18.0) gm/dl Oxyhemoglobin 84.9 L (95.0-99.0) % Chloride (98-107) mmol/L BUN (9-20) mg/dL Creatinine (0.8-1.3) mg/dL Glucose (75-100) mg/dL NT-Pro-B Natriuret Pep 8726 H (0-900) pg/mL Salicylates (2.8-20.0) mg/dL Acetaminophen (10.0-30.0) ug/mL Assessment and Plan - Patient Problems (1) CHF exacerbation Current Visit: Yes Status: Acute Plan to address problem: Patient placed on diuretics. Will monitor inputs and outputs and also monitor daily weight. Patient had an echocardiogram in April 2019 with an ejection fraction of 15 to 20%. Patient was last seen by Dr. Ceja the family literacy coordinator. We will place a consult to cardiology for further recommendation. (2) Visual hallucinations Current Visit: Yes Status: Acute Plan to address problem: Etiology is unclear. Possibly secondary to polypharmacy. Will monitor mental status. May consider mental health evaluation if hallucination continues (3) Chronic atrial fibrillation Current Visit: No Status: Acute (4) Diabetes Current Visit: No Status: Chronic Plan to address problem: We will monitor Accu-Chek. (5) Hyperlipidemia Current Visit: No Status: Chronic Plan to address problem: We will continue routine home medication and monitor lipid profile (6) Hypertension Current Visit: No Status: Chronic Qualifiers: Hypertension type: essential hypertension Qualified Code(s): I10 - Essential (primary) hypertension Plan to address problem: Blood pressure stable. We will continue to monitor vital signs and and continue routine home medication. (7) DVT prophylaxis Current Visit: No Status: Acute Plan to address problem: Patient already on anticoagulation- Eliquis (8) Full code status Current Visit: Yes Status: Acute
[2019-12-08] MEDS: FUROSEMIDE 40 MG/4 ML INJ IV SCH ×2 (06:08→17:55)
[2019-12-08] MEDS ORDERED: FUROSEMIDE 40 MG/4 ML INJ ONE (06:08)
--- NOTE | 2019-12-08 10:18 | Event Note ---
Date: 12/08/19 This is a follow-up from an admission earlier this morning. We will continue to plan as outlined in H&P. Cardiology has been consulted and await recommendations. Continue Lasix twice daily. Patient with acute hypoxic respiratory failure with a PO2 in the 50s and beta natruretic peptide of 8726. Total visit time = 35 minutes with greater than 50% spent on coordination of care and counseling
--- NOTE | 2019-12-08 10:42 | Consultation ---
History of Present Illness Consult date: 12/08/19 Requesting physician: J LUIS VALDERRAMA Consult reason: congestive heart failure History of present illness: The pt is a 68 YO male with a past medical history of HFrEF, NICMP, chronic atrial fibrillation on Eliquis, CKD, HTN, HLP, DM, DVT/PE. He has been seen by our practice on multiple prior admissions, is regularly followed at the [place]. He presented with c/o hallucinations. He has seen bugs crawling on both on the wall and on the floor. He has been seeing "people who aren't actually here". He also feels that the muñoz in his home is closing up on him. He states he may have taking too much his COPD medication. He denies any cardiac complaints, including chest pain, SOB, palpitations, n/v, diaphoresis, dizziness or syncope. Work-up in the ED reveals mild interstitial edema and small bilateral pleural effusions on CXR, elevated BNP. Patient was also found to be is slightly hypoxic. ECHO 05/05: mild LVH, EF 15-20%, mod LAE, mod-sev RAJEEV, mod-sev RVE, RVSP 42mmHg. Lexiscan MPI stress test done 10/2018 showed small mild fixed/distal inferior wall perfusion defect, EF 29%. Past History Past Medical History: atrial fib, COPD, diabetes, heart failure, hyperlipidemia, other (as per HPI) Past Surgical History: Other (Neck and Back surgery) Social history: no significant social history Family history: hypertension Medications and Allergies Allergies Allergy/AdvReac Type Severity Reaction Status Date / Time No Known Allergies Allergy Verified 05/05/18 23:54 Home Medications Medication Instructions Recorded Confirmed Last Taken Type Apixaban [Eliquis] 5 mg PO Q12HR #60 tablet 01/28/19 08/09/19 1 Day Ago Rx ~08/08/19 5 MG AtorvaSTATin [Lipitor] 40 mg PO QHS #30 tablet 01/28/19 08/09/19 1 Day Ago Rx ~08/08/19 40 MG Insulin Aspart (Nf) [NovoLOG 100 5 units SUB-Q TIDAC #90 units 01/28/19 08/09/19 1 Day Ago Rx UNITS/ML VIAL] ~08/08/19 5 UNITS Ipratropium/Albuterol Sulfate 1 puff IH BID #1 01/28/19 08/09/19 1 Day Ago Rx [Combivent Respimat] ~08/08/19 1 PUFF Pregabalin 50 mg PO BID #60 capsule 01/28/19 08/09/19 1 Day Ago Rx ~08/08/19 50 MG Tamsulosin [Flomax] 0.4 mg PO QDAY #30 capsule 01/28/19 08/09/19 1 Day Ago Rx ~08/08/19 0.4 MG oxyCODONE /ACETAMINOPHEN [Percocet 1 tab PO Q6H PRN #20 tablet 01/28/19 08/09/19 1 Day Ago Rx 5/325 mg] ~08/08/19 1 TAB polyethylene glycoL 3350 [Miralax 17 gm PO QDAY PRN #7 powd.pack 01/28/19 08/09/19 1 Day Ago Rx 3350] ~08/08/19 17 GM predniSONE [Deltasone] 20 mg PO QDAY #7 tablet 01/28/19 08/09/19 1 Day Ago Rx ~08/08/19 20 MG Pantoprazole [Protonix TAB] 40 mg PO QDAY #30 tablet 04/22/19 08/09/19 1 Day Ago Rx ~08/08/19 40 MG Aspirin [Aspirin BABY CHEW TAB] 81 mg PO QDAY #30 tab.chew 08/12/19 Unknown Rx Furosemide [Lasix TAB] 40 mg PO QDAY #30 tablet 08/12/19 Unknown Rx Metoprolol [Lopressor TAB] 25 mg PO BID #60 tablet 08/12/19 Unknown Rx lisinopriL [Zestril TAB] 2.5 mg PO QDAY #30 tablet 08/12/19 Unknown Rx Active Meds: Active Medications Acetaminophen (Tylenol) 650 mg PO Q4H PRN PRN Reason: Pain MILD(1-3)/Fever >100.5/LOPEZ Furosemide (Lasix) 40 mg IV BID@0600,1800 JERRY Last Admin: 12/08/19 06:08 Dose: 40 mg Documented by: Magnesium Hydroxide (Milk Of Magnesia) 30 ml PO Q4H PRN PRN Reason: Constipation Ondansetron HCl (Zofran) 4 mg IV Q8H PRN PRN Reason: Nausea And Vomiting Sodium Chloride (Sodium Chloride Flush Syringe 10 Ml) 10 ml IV BID [facility] Sodium Chloride (Sodium Chloride Flush Syringe 10 Ml) 10 ml IV PRN PRN PRN Reason: LINE FLUSH Review of Systems Constitutional: no fever, no chills, no sweats Ears, nose, mouth and throat: no ear pain, no nose pain, no sinus pressure, no sinus pain Cardiovascular: no chest pain, no orthopnea, no palpitations, no rapid/irregular heart beat, no edema, no syncope, no lightheadedness, no shortness of breath, no dyspnea on exertion, no high blood pressure, no leg edema Respiratory: no cough, no shortness of breath, no dyspnea on exertion, no congestion, no wheezing, no pain on inspiration Gastrointestinal: no abdominal pain, no nausea, no vomiting, no diarrhea, no constipation, no change in bowel habits Genitourinary Male: no dysuria, no hematuria, no flank pain, no discharge, no urinary frequency, no urinary hesitancy Musculoskeletal: no neck stiffness, no neck pain, no shooting arm pain, no arm numbness/tingling, no low back pain, no shooting leg pain Integumentary: no rash, no pruritis, no redness, no sores, no wounds Neurological: no head injury, no paralysis, no weakness, no parathesias, no numbness, no tingling, no seizures, no syncope Psychiatric: hallucinations, no anxiety Endocrine: no cold intolerance, no heat intolerance Hematologic/Lymphatic: no easy bruising Allergic/Immunologic: no urticaria Physical Examination Vital Signs Temp Pulse Resp BP Pulse Ox 98.0 F 91 H 18 148/83 94 12/08/19 01:48 12/08/19 01:48 12/08/19 01:48 12/08/19 01:48 12/08/19 01:48 General appearance: no acute distress HEENT: Positive: PERRL, Normocephaly, Mucus Membranes Moist Neck: Positive: neck supple, trachea midline Cardiac: Positive: irregularly irregular, S1/S2 Lungs: Positive: Decreased Breath Sounds Neuro: Positive: Grossly Intact Abdomen: Negative: Tender Skin: Negative: Rash Musculoskeletal: No Pain Extremities: Absent: edema Results 12/08/19 01:50 12/08/19 01:50 Cardiac Enzymes 12/08/19 Range/Units 01:50 AST 26 (5-40) units/L CBC 12/08/19 Range/Units 01:50 WBC 5.3 (4.5-11.0) K/mm3 RBC 4.32 (3.65-5.03) M/mm3 Hgb 10.5 L (11.8-15.2) gm/dl Hct 33.4 L (35.5-45.6) % Plt Count 185 (140-440) K/mm3 Lymph # 0.8 L (1.2-5.4) K/mm3 Walker # 0.5 (0.0-0.8) K/mm3 Eos # 0.1 (0.0-0.4) K/mm3 Baso # 0.1 (0.0-0.1) K/mm3 Comprehensive Metabolic Panel 12/08/19 Range/Units 01:50 Sodium 144 (137-145) mmol/L Potassium 4.5 (3.6-5.0) mmol/L Chloride 107.5 H (98-107) mmol/L Carbon Dioxide 23 (22-30) mmol/L BUN 24 H (9-20) mg/dL Creatinine 1.9 H (0.8-1.3) mg/dL Glucose 128 H (75-100) mg/dL Calcium 8.9 (8.4-10.2) mg/dL AST 26 (5-40) units/L ALT 38 (7-56) units/L Alkaline Phosphatase 94 (35-129) units/L Total Protein 7.5 (6.3-8.2) g/dL Albumin 3.9 (3.9-5) g/dL - Imaging and Cardiology Echo: report reviewed ( 05/05: mild LVH, EF 15-20%, mod LAE, mod-sev RAJEEV, mod- sev RVE, RVSP 42mmHg. ) EKG: report reviewed, image reviewed EKG interpretations - Telemetry EKG Rhythm: Atrial Fibrillation - EKG Supraventricular dysrhythmia: atrial fibrillation Assessment and Plan Pt with mild component acute on chronic HFrEF. Agree with IV lasix. Resume home GDMT - no ACEI/ARB at this time in setting of renal insufficiency. F/u BMP in AM. Anticipate d/c within next 24-48Hr. Will follow. The patient has been seen in conjunction with Dr. Oneill who agrees with the assessment and plan of care. - Patient Problems (1) Hallucinations Current Visit: Yes Status: Acute (2) Acute on chronic HFrEF (heart failure with reduced ejection fraction) Current Visit: Yes Status: Acute (3) Nonischemic cardiomyopathy Current Visit: Yes Status: Acute (4) Chronic atrial fibrillation Current Visit: Yes Status: Acute (5) History of cardioversion Current Visit: Yes Status: Acute (6) COPD (chronic obstructive pulmonary disease) Current Visit: No Status: Chronic Qualifiers: COPD type: unspecified COPD Qualified Code(s): J44.9 - Chronic obstructive pulmonary disease, unspecified (7) History of DVT (deep vein thrombosis) Current Visit: No Status: Chronic (8) History of pulmonary embolism Current Visit: No Status: Chronic (9) Hypertension Current Visit: No Status: Chronic Qualifiers: Hypertension type: essential hypertension Qualified Code(s): I10 - Es sential (primary) hypertension (10) CKD Current Visit: Yes Status: Chronic
[2019-12-08] MEDS: APIXABAN 5 MG TAB PO SCH (22:26)
[2019-12-08] MEDS: METOPROLOL TARTRATE 25 MG TAB PO SCH (22:26)
[2019-12-09] MEDS ORDERED: ALUM-MAG HYDROXIDE-SIMETHICONE 200-200-20MG/5ML ORAL LIQD 30 ML PO ONE (01:30)
[2019-12-09] MEDS: FUROSEMIDE 40 MG/4 ML INJ IV SCH (06:39)
--- NOTE | 2019-12-09 07:56 | Consultation ---
History of Present Illness - Reason for Consult Consult date: 12/09/19 Reason for consult: MHE Requesting physician: J LUIS VALDERRAMA - Chief Complaint Chief complaint: Shortness of Breath - History of Present Psychiatric Illness Per ED Provider: This is a 69-year-old male with history of atrial fibrillation, DVT, pulmonary embolism, kidney stones, insulin-dependent diabetes, COPD, GERD, hypertension, CHF, gout who presents with visual hallucinations. He has seen ants bugs crawling on the floor. He saw a person that he knows that is not in the room. Today, he felt as if the [place] of his home was closing in on him. He states that he knows that these hallucinations are not real. He thinks that he "overdid it with the COPD medicine". He states that he does not currently have any hallucinations At this time after arriving to the ED via EMS. No history of mental health disease. He has been clean of substance abuse since 1993. 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 However he has abstained from polysubstance abuse for 26 years. He has been in his normal state of health. He denies headache. He denies numbness or weakness. He denies chest pain. He denies suicidal homicidal ideation. PSYCH HPI Patient is a 69 year old single, disabled Male with no significant past psychiatric history with past medical history of A-fib, HTN, DM, COPD, and CHF who presented to ER by EMS with complaints of visual hallucination with subsequent work up revealing Acute CHF. Patient reports his symptoms has resolved since medical treatment, denies any new visual hallucinations. Patient states while at home, he noticed he was concerned about either seeing someone entering his car or someone being inside his house, he was having vision looking distorted hence why he called EMS. Patient describes a good and stable mood, denies being depressed or excessively nervous. Patient eats and sleeps well. Patient denies panic attacks, recurrent nightmares or flashbacks. Patient denies symptoms suggestive of OCD or PTSD. Patient denies hallucinations, paranoia, thought interference and no features suggestive of hypomania or marli. She completely denies suicidal or homicidal thoughts. PAST PSYCHIATRIC HISTORY Diagnoses: none Suicide attempts or Self-harm behavior: none reported Prior psychiatric hospitalizations: none reported Substance Abuse history: none reported Previous psychiatric medications tried: none reported Outpatient treatment: none reported PAST MEDICAL HISTORY: A-fib, HTN, DM, COPD, and CHF Family Psychiatric History: None reported or documented SOCIAL HISTORY Marital Status: Single Living Arrangements: with self Employment Status: disabled Access to guns/weapons: none reported Education: 9th grade History of Abuse: none reported Legal History: none reported REVIEW OF SYSTEMS Constitutional: Negative for weight loss ENT: Negative for stridor Respiratory: Negative for cough or hemoptysis All other systems reviewed and are negative MENTAL STATUS EXAMINATION General Appearance and Behavior: Age appropriate,good hygiene, wearing appropriate clothes, lying in bed, good eye contact, cooperative polite with questioning. Cooperation: Participating/engaged Psychomotor Behavior: unremarkable and within normal limits Mood: Good Affect and affective range: congruent with mood Thought Process: Fluent/Logical Thought Content: Within reality Speech: Normal volume, Regular rate and rhythm Intellectual Functioning: Average Suicidal Ideation: Denies SI Homicidal Ideation: Denies HI Impulse Control: Unimpaired Insight and Judgment: Normal insight and judgment Memory: Normal Attention: Normal Orientation: Alert, oriented RECOMMENDATIONS Isolated visual hallucination mostly a symptom of medical conditon, pt foudn to have acute CHF now resolved. denies any further symptom and no prior MH histroy. Assessment and Plan - Psychiatric problem (1) Mental health-related complaint Current Visit: Yes Status: Acute MEDICATIONS: Risks, benefits and alternatives of medications discussed with the patient, questions answered and consent obtained from patient. PSYCHOTHERAPY: Supportive psychotherapy provided MEDICAL: Per primary team DELIRIUM PRECAUTIONS: Please re-orient patient frequently, keep lights on during the day, and minimize benzodiazepines and opiates as these medications could worsen patient's confusion. ACCIDENT INVESTIGATOR: DISPOSITION: Per primary team; no indication for acute inpatient psychiatric hospitalization at this time LEGAL STATUS: Voluntary FOLLOW-UP: Will sign off Thank you for the consult. Please contact with any questions and/or concerns. Medications and Allergies Allergies Allergy/AdvReac Type Severity Reaction Status Date / Time No Known Allergies Allergy Verified 05/05/18 23:54 Home Medications Medication Instructions Recorded Confirmed Last Taken Type Apixaban [Eliquis] 5 mg PO Q12HR #60 tablet 01/28/19 12/08/19 1 Day Ago Rx ~12/07/19 AtorvaSTATin [Lipitor] 40 mg PO QHS #30 tablet 01/28/19 12/08/19 1 Day Ago Rx ~08/08/19 40 MG Ipratropium/Albuterol Sulfate 1 puff IH BID #1 01/28/19 12/08/19 1 Day Ago Rx [Combivent Respimat] ~08/08/19 1 PUFF Pregabalin 50 mg PO BID #60 capsule 01/28/19 12/08/19 1 Day Ago Rx ~08/08/19 50 MG oxyCODONE /ACETAMINOPHEN [Percocet 1 tab PO Q6H PRN #20 tablet 01/28/19 12/08/19 1 Day Ago Rx 5/325 mg] ~08/08/19 1 TAB polyethylene glycoL 3350 [Miralax 17 gm PO QDAY PRN #7 powd.pack 01/28/19 12/08/19 1 Day Ago Rx 3350] ~08/08/19 17 GM Pantoprazole [Protonix TAB] 40 mg PO QDAY #30 tablet 04/22/19 12/08/19 1 Day Ago Rx ~08/08/19 40 MG Furosemide [Lasix TAB] 40 mg PO QDAY #30 tablet 08/12/19 12/09/19 Unknown Rx Metoprolol [Lopressor TAB] 25 mg PO BID #60 tablet 08/12/19 12/08/19 Unknown Rx lisinopriL [Zestril TAB] 2.5 mg PO QDAY #30 tablet 08/12/19 12/08/19 Unknown Rx Insulin Aspart (Nf) [NovoLOG 100 5 units SUB-Q TIDAC PRN 12/09/19 12/09/19 Unknown History UNITS/ML VIAL] Active Meds: Active Medications Acetaminophen (Tylenol) 650 mg PO Q4H PRN PRN Reason: Pain MILD(1-3)/Fever >100.5/LOPEZ Apixaban (Eliquis) 5 mg PO Q12HR [facility]; Protocol Last Admin: 12/08/19 22:26 Dose: 5 mg Documented by: Atorvastatin Calcium (Lipitor) 40 mg PO QHS [facility] Last Admin: 12/08/19 22:26 Dose: 40 mg Documented by: Furosemide (Lasix) 40 mg IV BID@0600,1800 [facility] Last Admin: 12/09/19 06:39 Dose: 40 mg Documented by: Magnesium Hydroxide (Milk Of Magnesia) 30 ml PO Q4H PRN PRN Reason: Constipation Metoprolol Tartrate (Metoprolol) 25 mg PO BID [facility] Last Admin: 12/08/19 22:26 Dose: 25 mg Documented by: Ondansetron HCl (Zofran) 4 mg IV Q8H PRN PRN Reason: Nausea And Vomiting Pantoprazole Sodium (Protonix) 40 mg PO BID [facility] Sodium Chloride (Sodium Chloride Flush Syringe 10 Ml) 10 ml IV BID [facility] Last Admin: 12/08/19 22:27 Dose: 10 ml Documented by: Sodium Chloride (Sodium Chloride Flush Syringe 10 Ml) 10 ml IV PRN PRN PRN Reason: LINE FLUSH Mental Status Exam - Vital signs Last Vital Signs Temp 97.8 F 12/09/19 03:50 Pulse 92 H 12/09/19 03:50 Resp 16 12/09/19 03:50 BP 116/74 12/09/19 03:50 Pulse Ox 94 12/09/19 03:50 Results Result Diagrams: 12/08/19 01:50 12/08/19 01:50 Abnormal lab results 12/08/19 12/08/19 12/08/19 Range/Units 12:32 17:10 20:27 POC Glucose 119 H 116 H 125 H (70-105) All other labs normal. Assessment and Plan - Psychiatric problem (1) Mental health-related complaint Current Visit: Yes Status: Acute
[2019-12-09] MEDS ORDERED: PANTOPRAZOLE 40 MG TAB PO SCH (10:00)
[2019-12-09 10:06] LABS: Basophils % (Auto) 0.7 % (0.0-1.8); Eosinophils # (Auto) 0.4 K/mm3 (0.0-0.4); Eosinophils % (Auto) 6.3 % (0.0-4.3); Hematocrit 37.9 % (35.5-45.6); Hemoglobin 11.9 gm/dl (11.8-15.2); Lymphocytes # (Auto) 0.5 K/mm3 (1.2-5.4); Lymphocytes % (Auto) 8.4 % (13.4-35.0); Mean Corpuscular HGB Conc 32 % (32-34); Mean Corpuscular Volume 77 fl (84-94); Monocytes # (Auto) 0.4 K/mm3 (0.0-0.8); Monocytes % (Auto) 6.8 % (0.0-7.3); Platelet Count 172 K/mm3 (140-440); Red Blood Count 4.94 M/mm3 (3.65-5.03)
[2019-12-09] MEDS: APIXABAN 5 MG TAB PO SCH (10:12)
[2019-12-09] MEDS: METOPROLOL TARTRATE 25 MG TAB PO SCH (10:13)
[2019-12-09 10:29] LABS: Calcium 9.3 mg/dL (8.4-10.2); Red Cell Distribution Width 23.7 % (13.2-15.2)
[2019-12-09 10:51] LABS: INR 1.42 (0.87-1.13)
--- NOTE | 2019-12-09 10:55 | Progress Note ---
Assessment and Plan Currently stable cardiac status. Pt appears to be nearing/at euvolemia. Convert to PO lasix and cont GDMT - no ACEI/ARB at this time in setting of renal insufficiency. Pt may discharge from cardiology standpoint. Pt may benefit from cardiac defibrillator in setting of NICMP. Pt was discharged from [facility] with LifeVest in 04/2019. However, pt discontinued LifeVest in 06/2019. Recommend for pt to address AICD candidacy as OP with [place] [facility]. Recommend pt follow up with [place] [facility] team within 3-5 days. Pt verbalizes understanding. The patient has been seen in conjunction with Dr. Oneill who agrees with the assessment and plan of care. - Patient Problems (1) Hallucinations Current Visit: Yes Status: Acute (2) Acute on chronic HFrEF (heart failure with reduced ejection fraction) Current Visit: Yes Status: Acute (3) Nonischemic cardiomyopathy Current Visit: Yes Status: Acute (4) Chronic atrial fibrillation Current Visit: Yes Status: Acute (5) History of cardioversion Current Visit: Yes Status: Acute (6) COPD (chronic obstructive pulmonary disease) Current Visit: No Status: Chronic Qualifiers: COPD type: unspecified COPD Qualified Code(s): J44.9 - Chronic obstructive pulmonary disease, unspecified (7) History of DVT (deep vein thrombosis) Current Visit: No Status: Chronic (8) History of pulmonary embolism Current Visit: No Status: Chronic (9) Hypertension Current Visit: No Status: Chronic Qualifiers: Hypertension type: essential hypertension Qualified Code(s): I10 - Essential (primary) hypertension (10) CKD Current Visit: Yes Status: Chronic Subjective Date of service: 12/09/19 Principal diagnosis: hallucinations; HFrEF Interval history: pt resting in bed, no current cardiac complaints. denies any current hallucinations. in AFib on tele HR 90s. Objective Last Vital Signs Temp 98.2 F 12/09/19 07:15 Pulse 87 12/09/19 07:15 Resp 18 12/09/19 09:14 BP 136/90 12/09/19 07:15 Pulse Ox 96 12/09/19 09:14 - Physical Examination General: No Apparent Distress HEENT: Positive: PERRL, Normocephaly, Mucus Membranes Moist Neck: Positive: neck supple, trachea midline Cardiac: Positive: irregularly irregular, S1/S2 Lungs: Positive: Decreased Breath Sounds Neuro: Positive: Grossly Intact Abdomen: Negative: Tender Skin: Negative: Rash Musculoskeletal: No Pain Extremities: Absent: edema - Labs and Meds Coagulation 12/09/19 Range/Units 09:17 PT 17.6 H (12.2-14.9) Sec. INR 1.42 H (0.87-1.13) CBC 12/09/19 Range/Units 09:17 WBC 6.5 (4.5-11.0) K/mm3 RBC 4.94 (3.65-5.03) M/mm3 Hgb 11.9 (11.8-15.2) gm/dl Hct 37.9 (35.5-45.6) % Plt Count 172 (140-440) K/mm3 Lymph # 0.5 L (1.2-5.4) K/mm3 Ray # 0.4 (0.0-0.8) K/mm3 Eos # 0.4 (0.0-0.4) K/mm3 Baso # 0.0 (0.0-0.1) K/mm3 Comprehensive Metabolic Panel 12/09/19 Range/Units 09:17 Sodium 141 (137-145) mmol/L Potassium 4.3 (3.6-5.0) mmol/L Chloride 101.1 (98-107) mmol/L Carbon Dioxide 28 (22-30) mmol/L BUN 23 H (9-20) mg/dL Creatinine 1.8 H (0.8-1.3) mg/dL Glucose 110 H (75-100) mg/dL Calcium 9.3 (8.4-10.2) mg/dL - Imaging and Cardiology EKG: report reviewed, image reviewed Echo: report reviewed ( 05/05: mild LVH, EF 15-20%, mod LAE, mod-sev RAJEEV, mod- sev RVE, RVSP 42mmHg. ) - Telemetry EKG Rhythm: Atrial Fibrillation
--- NOTE | 2019-12-09 16:01 | Discharge Summary ---
Providers - Providers Date of Admission: 12/08/19 12:35 Date of discharge: 12/09/19 Attending physician: MAJO HARMON 12/08/19 05:05 Consult to Physician [CONS] Routine Comment: Consulting Provider: JUVENAL MCCANN Physician Instructions: Reason For Exam: CHF EXAC 12/09/19 01:45 Consult to Case Management [CONS] Routine Services Needed at Discharge: Information Technology Consultant Notified:: no Additional Physician Instructions: When dc'd needs assistance with transportation and nursing home. Primary care physician: PRODUCTION MAINTENANCE TECHNICIAN Hospitalization Condition: Stable Hospital course: 69-year-old -Turkmen male with known history of COPD, atrial fibrillation, CHF with ejection fraction of 15 to 20% as of April 2019, diabetes mellitus, gallops, presenting to the emergency room today stating that he has been having some visual hallucinations. He has seen bugs crawling on both on the wall and on the floor. He also feels that the [place] in his home is closing up on him. He states he may have taking more than enough of his COPD medication. Patient states his hallucination had resolved upon arrival in the emergency room. He has no known history of mental illness, no history of illicit drug use. He denies any fever or chills, no chest pain, no nausea vomiting, no abdominal pain no diarrhea. He denies any headache ,denies any suicidal or homicidal ideations. Work-up in the emergency room today reveals some pulmonary vascular congestion and pleural effusion on the chest x-ray, elevated BNP. Patient was also found to be is slightly hypoxic. Patient was started on diuretics for CHF and cardiology was consulted. He became euvolemic and his diuretics have been switched to PO. As per cardiology, he will discharged on oral lasix and follow up with [place] cardiology in 3-5 days. Pt may benefit from cardiac defibrillator in setting of NICMP. Pt was discharged from [facility] with LifeVest in 04/2019. However, pt discontinued LifeVest in 06/2019. Recommended for pt to address AICD candidacy as OP with [place] cardiology. For his hallucination, this has improved. he was seen by psychiatry team and as per psychiatry, he does not need inpatient psych admission. Disposition: DC-30 STILL A PATIENT Core Measure Documentation - Palliative Care Palliative Care/ Comfort Measures: Not Applicable - Core Measures Any of the following diagnoses?: none Exam - Constitutional Vitals: Temp Pulse Resp BP Pulse Ox 98.2 F 84 18 96/59 91 12/09/19 11:41 12/09/19 11:41 12/09/19 11:41 12/09/19 11:41 12/09/19 11:41 General appearance: Present: no acute distress, well-nourished - EENT Eyes: Present: PERRL ENT: hearing intact, clear oral mucosa - Neck Neck: Present: supple, normal ROM - Respiratory Respiratory effort: normal Respiratory: bilateral: CTA - Cardiovascular Heart Sounds: Present: S1 & S2. Absent: rub, click - Extremities Extremities: pulses symmetrical, No edema Peripheral Pulses: within normal limits - Abdominal General gastrointestinal: Present: soft, non-tender, non-distended, normal bowel sounds Male genitourinary: Present: normal - Integumentary Integumentary: Present: clear, warm, dry - Musculoskeletal Musculoskeletal: gait normal, strength equal bilaterally - Psychiatric Psychiatric: appropriate mood/affect, intact judgment & insight - Neurologic Neurologic: CNII-XII intact, moves all extremities Plan Diet: low fat, low salt Additional Instructions: Follow up with [place] cardiology in 3-5 days as discussed. You need to be evaluated for placement of AICD by your [place] cardiology. Ensure you follow up with cardiology immediately. Stop lisinopril for now as advised by cardiology. Continue medications as ordered Follow up with: PRIMARY CARE, [Primary Care Provider] - 3-5 Days Prescriptions: Furosemide [Lasix TAB] 40 mg PO QDAY #30 tablet Magnesium Hydroxide [Milk of Magnesia] 30 ml PO DAILY PRN #200 ml PRN Reason: Constipation
[2019-12-09 17:33] VITALS: BP 133/77
[2019-12-10] MEDS ORDERED: FUROSEMIDE 40 MG TAB PO SCH (10:00)
== END 2019-12-09 19:47 | disposition home or self-care (01) | DRG 291 ==
LOC: ED 01:35 → EEVIPCON 01:35 → 4A 04:06 → OBSVTOIN 12:35
PROVIDERS: ADMIT Internal Medicine Geriatric Medicine; ATTEND Internal Medicine
DX: I13.0 Hypertensive heart and chronic kidney disease with heart failure and stage 1 through stage 4 chronic kidney disease, or unspecified chronic kidney disease (principal); I50.23 Acute on chronic systolic (congestive) heart failure; J90 Pleural effusion, not elsewhere classified; I48.20 Chronic atrial fibrillation, unspecified; I42.8 Other cardiomyopathies; J44.9 Chronic obstructive pulmonary disease, unspecified; E78.5 Hyperlipidemia, unspecified; E11.22 Type 2 diabetes mellitus with diabetic chronic kidney disease; N18.9 Chronic kidney disease, unspecified; K21.9 Gastro-esophageal reflux disease without esophagitis; R44.1 Visual hallucinations; F19.10 Other psychoactive substance abuse, uncomplicated; R09.02 Hypoxemia; Z82.49 Family history of ischemic heart disease and other diseases of the circulatory system; Z79.82 Long term (current) use of aspirin; Z79.4 Long term (current) use of insulin; Z79.01 Long term (current) use of anticoagulants; Z86.711 Personal history of pulmonary embolism; Z86.718 Personal history of other venous thrombosis and embolism
CPT/HCPCS: 36415; 70450; 71045; 80048; 80053; 80307; 80320; 81001; 82803; 82962; 83880; 85025; 85610; 93005; G0378; A9270-GY; G0480; J1940

== ENCOUNTER 2021-07-30 15:18 | Inpatient (IN) | payer MEDICARE ==
[2021-07-30] MEDS ORDERED: HYDROcodone/ACETAMINOPHEN 5-325 MG TAB PO ONE (15:44)
--- NOTE | 2021-07-30 15:49 | Emergency Department Report ---
HPI - General Chief Complaint: Weakness Time Seen by Provider: 07/30/21 15:27 - HPI HPI: Room 3 Patient is a 71-year-old male presenting with chief complaint of feeling shaky. Patient states for the past 3 weeks whenever he gets up and moves around to exert himself he begins to tremor in all of his extremities. Patient states this afternoon he felt near syncopal and developed nausea without vomiting prompting EMS to be called. Patient admits to shortness of breath for 1 day but denies chest pain fever or cough. Patient denies paresthesia. Patient states she has had pain and weakness in his right lower extremity for the past week but denies any preceding trauma. EMS was called and arrived on scene to find the patient hypoxic to 88% on room air. Patient states he is not on home O2. Patient gives his bilateral lower extremity pain which he attributes to his neuropathy a score of 9/10. ED Past Medical Hx - Past Medical History Hx Hypertension: Yes Hx Congestive Heart Failure: Yes Hx Diabetes: Yes Hx Deep Vein Thrombosis: Yes (both legs) Hx Pulmonary Embolism: Yes Hx Kidney Stones: Yes Hx COPD: Yes Additional medical history: neuropathy. a-fib : Chronic, persistent gout - Surgical History Additional Surgical History: neck and back surgery 2011 - Family History Family history: no significant - Social History Smoking Status: Former Smoker (None x10 years) Substance Use Type: None - Medications Home Medications: Home Medications Medication Instructions Recorded Confirmed Last Taken Type Apixaban [Eliquis] 5 mg PO Q12HR #60 tablet 01/28/19 12/08/19 1 Day Ago Rx ~12/07/19 AtorvaSTATin [Lipitor] 40 mg PO QHS #30 tablet 01/28/19 12/08/19 1 Day Ago Rx ~08/08/19 40 MG Ipratropium/Albuterol Sulfate 1 puff IH BID #1 01/28/19 12/08/19 1 Day Ago Rx [Combivent Respimat] ~08/08/19 1 PUFF Pregabalin 50 mg PO BID #60 capsule 01/28/19 12/08/19 1 Day Ago Rx ~08/08/19 50 MG polyethylene glycoL 3350 [Miralax 17 gm PO QDAY PRN #7 powd.pack 01/28/19 08/08/03 1 Day Ago Rx 3350] ~08/08/19 17 GM Pantoprazole [Protonix TAB] 40 mg PO QDAY #30 tablet 04/22/19 12/08/19 1 Day Ago Rx ~08/08/19 40 MG Metoprolol [Lopressor TAB] 25 mg PO BID #60 tablet 08/12/19 12/08/19 Unknown Rx Furosemide [Lasix TAB] 40 mg PO QDAY #30 tablet 12/09/19 Unknown Rx Insulin Aspart (Nf) [NovoLOG 100 5 units SUB-Q TIDAC PRN 12/09/19 12/09/19 Unkno wn History UNITS/ML VIAL] Magnesium Hydroxide [Milk of 30 ml PO DAILY PRN #200 ml 12/09/19 Unknown Rx Magnesia] ED Review of Systems ROS: Stated complaint: WEAKNESS Other details as noted in HPI Constitutional: denies: fever Eyes: denies: eye pain ENT: denies: throat pain Respiratory: shortness of breath. denies: cough Cardiovascular: denies: chest pain Endocrine: no symptoms reported Gastrointestinal: nausea. denies: vomiting Genitourinary: denies: dysuria Musculoskeletal: denies: back pain Neurological: weakness. denies: headache, paresthesias Physical Exam - Physical Exam Vital Signs: Vital Signs 07/30/21 15:19 Pulse Rate 100 H Blood Pressure 120/60 [Left] O2 Sat by Pulse 93 Oximetry Physical Exam: GENERAL: The patient is well-developed well-nourished male lying on stretcher not appearing to be in acute distress. [] HEENT: Normocephalic. Atraumatic. Extraocular motions are intact. Patient has moist mucous membranes. NECK: Supple. Trachea midline CHEST/LUNGS: Clear to auscultation. There is no respiratory distress noted. HEART/CARDIOVASCULAR: Regular. There is no tachycardia. There is no gallop rub or murmur. 2+ DPs bilaterally ABDOMEN: Abdomen is soft, nontender. Patient has normal bowel sounds. There is no abdominal distention. SKIN: There is no rash. There is no edema. There is no diaphoresis. NEURO: The patient is awake, alert, and oriented. The patient is cooperative. The patient was able to bend the left lower extremity at the hip and knee but is unable to raise or bend right lower extremity off of structures secondary to "pain and weakness." The patient has normal speech. GCS 15 MUSCULOSKELETAL: There is no evidence of acute injury. ED Course Vital Signs 07/30/21 15:19 Pulse Rate 100 H Blood Pressure 120/60 [Left] O2 Sat by Pulse 93 Oximetry ED Medical Decision Making - Lab Data Result diagrams: 07/30/21 15:56 07/30/21 15:56 Laboratory Tests 07/30/21 07/30/21 07/30/21 15:56 15:56 15:56 WBC 10.3 RBC 4.78 Hgb 9.8 L Hct 32.5 L MCV 68 L MCH 21 L MCHC 30 L RDW 21.1 H Plt Count 263 Add Manual Diff Complete Total Counted 100 Seg Neuts % (Manual) 89.0 H Band Neutrophils % 0 Lymphocytes % (Manual) 6.0 L Reactive Lymphs % (Man) 0 Monocytes % (Manual) 5.0 Eosinophils % (Manual) 0 Basophils % (Manual) 0 Metamyelocytes % 0 Myelocytes % 0 Promyelocytes % 0 Blast Cells % 0 Nucleated RBC % Not Reportable Seg Neutrophils # Man 9.2 H Band Neutrophils # 0.0 Lymphocytes # (Manual) 0.6 L Abs React Lymphs (Man) 0.0 Monocytes # (Manual) 0.5 Eosinophils # (Manual) 0.0 Basophils # (Manual) 0.0 Metamyelocytes # 0.0 Myelocytes # 0.0 Promyelocytes # 0.0 Blast Cells # 0.0 WBC Morphology Not Reportable Hypersegmented Neuts Not Reportable Hyposegmented Neuts Not Reportable Hypogranular Neuts Not Reportable Smudge Cells Not Reportable Toxic Granulation Not Reportable Toxic Vacuolation Not Reportable Dohle Bodies Not Reportable Pelger-Huet Anomaly Not Reportable Chris Rods Not Reportable Platelet Estimate Consistent w auto Clumped Platelets Not Reportable Plt Clumps, EDTA Not Reportable Large Platelets Not Reportable Giant Platelets Not Reportable Platelet Satelliting Not Reportable Plt Morphology Comment Not Reportable RBC Morphology Not Reportable Dimorphic RBCs Not Reportable Polychromasia Not Reportable Hypochromasia 2+ Poikilocytosis Not Reportable Anisocytosis 1+ Microcytosis 1+ Macrocytosis Not Reportable Spherocytes Not Reportable Pappenheimer Bodies Not Reportable Sickle Cells Not Reportable Target Cells Not Reportable Tear Drop Cells Not Reportable Ovalocytes Not Reportable Helmet Cells Not Reportable Nguyen-[place] Bodies Not Reportable Felda Rings Not Reportable Yuliana Cells Not Reportable Bite Cells Not Reportable Crenated Cell Not Reportable Elliptocytes Not Reportable Acanthocytes (Spur) Not Reportable Rouleaux Not Reportable Hemoglobin C Crystals Not Reportable Schistocytes Not Reportable Malaria parasites Not Reportable Misbah Bodies Not Reportable Hem Pathologist Commnt No PT 28.3 H INR 2.30 H D-Dimer Sodium 138 Potassium 4.5 Chloride 100.5 Carbon Dioxide 23 Anion Gap 19 BUN 20 Creatinine 2.1 H Estimated GFR 38 BUN/Creatinine Ratio 10 Glucose 183 H Lactic Acid Calcium 8.4 Magnesium 1.80 Total Bilirubin 0.70 AST 18 ALT 5 L Alkaline Phosphatase 72 Total Creatine Kinase 46 L CK-MB (CK-2) < 1.0 CK-MB (CK-2) Rel Index 2.1 Troponin T 0.023 NT-Pro-B Natriuret Pep 3562 H Total Protein 8.4 H Albumin 2.8 L Albumin/Globulin Ratio 0.5 TSH Free T4 07/30/21 07/30/21 07/30/21 15:56 15:56 15:56 WBC RBC Hgb Hct MCV MCH MCHC RDW Plt Count Add Manual Diff Total Counted Seg Neuts % (Manual) Band Neutrophils % Lymphocytes % (Manual) Reactive Lymphs % (Man) Monocytes % (Manual) Eosinophils % (Manual) Basophils % (Manual) Metamyelocytes % Myelocytes % Promyelocytes % Blast Cells % Nucleated RBC % Seg Neutrophils # Man Band Neutrophils # Lymphocytes # (Manual) Abs React Lymphs (Man) Monocytes # (Manual) Eosinophils # (Manual) Basophils # (Manual) Metamyelocytes # Myelocytes # Promyelocytes # Blast Cells # WBC Morphology Hypersegmented Neuts Hyposegmented Neuts Hypogranular Neuts Smudge Cells Toxic Granulation Toxic Vacuolation Dohle Bodies Pelger-Huet Anomaly Chris Rods Platelet Estimate Clumped Platelets Plt Clumps, EDTA Large Platelets Giant Platelets Platelet Satelliting Plt Morphology Comment RBC Morphology Dimorphic RBCs Polychromasia Hypochromasia Poikilocytosis Anisocytosis Microcytosis Macrocytosis Spherocytes Pappenheimer Bodies Sickle Cells Target Cells Tear Drop Cells Ovalocytes Helmet Cells Nguyen-[place] Bodies Felda Rings [place] Cells Bite Cells Crenated Cell Elliptocytes Acanthocytes (Spur) Rouleaux Hemoglobin C Crystals Schistocytes Malaria parasites Misbah Bodies Hem Pathologist Commnt PT INR D-Dimer 1221.74 H Sodium Potassium Chloride Carbon Dioxide Anion Gap BUN Creatinine Estimated GFR BUN/Creatinine Ratio Glucose Lactic Acid 2.10 H* Calcium Magnesium Total Bilirubin AST ALT Alkaline Phosphatase Total Creatine Kinase CK-MB (CK-2) CK-MB (CK-2) Rel Index Troponin T NT-Pro-B Natriuret Pep Total Protein Albumin Albumin/Globulin Ratio TSH 2.790 Free T4 1.56 H 07/30/21 17:47 WBC RBC Hgb Hct MCV MCH MCHC RDW Plt Count Add Manual Diff Total Counted Seg Neuts % (Manual) Band Neutrophils % Lymphocytes % (Manual) Reactive Lymphs % (Man) Monocytes % (Manual) Eosinophils % (Manual) Basophils % (Manual) Metamyelocytes % Myelocytes % Promyelocytes % Blast Cells % Nucleated RBC % Seg Neutrophils # Man Band Neutrophils # Lymphocytes # (Manual) Abs React Lymphs (Man) Monocytes # (Manual) Eosinophils # (Manual) Basophils # (Manual) Metamyelocytes # Myelocytes # Promyelocytes # Blast Cells # WBC Morphology Hypersegmented Neuts Hyposegmented Neuts Hypogranular Neuts Smudge Cells Toxic Granulation Toxic Vacuolation Dohle Bodies Pelger-Huet Anomaly Chris Rods Platelet Estimate Clumped Platelets Plt Clumps, EDTA Large Platelets Giant Platelets Platelet Satelliting Plt Morphology Comment RBC Morphology Dimorphic RBCs Polychromasia Hypochromasia Poikilocytosis Anisocytosis Microcytosis Macrocytosis Spherocytes Pappenheimer Bodies Sickle Cells Target Cells Tear Drop Cells Ovalocytes Helmet Cells Nguyen-[place] Bodies Felda Rings Yuliana Cells Bite Cells Crenated Cell Elliptocytes Acanthocytes (Spur) Rouleaux Hemoglobin C Crystals Schistocytes Malaria parasites Misbah Bodies Hem Pathologist Commnt PT INR D-Dimer Sodium Potassium Chloride Carbon Dioxide Anion Gap BUN Creatinine Estimated GFR BUN/Creatinine Ratio Glucose Lactic Acid 1.50 Calcium Magnesium Total Bilirubin AST ALT Alkaline Phosphatase Total Creatine Kinase CK-MB (CK-2) CK-MB (CK-2) Rel Index Troponin T NT-Pro-B Natriuret Pep Total Protein Albumin Albumin/Globulin Ratio TSH Free T4 - EKG Data -: EKG Interpreted by Ok EKG shows normal: axis Rate: normal (97 bpm) - EKG Data When compared to previous EKG there are: previous EKG unavailable Interpretation: other (Atrial fibrillation) - Radiology Data Radiology results: report reviewed (Chest x-ray, VQ scan), image reviewed (Chest x-ray) interpreted by me: Chest [id number]. No definite focal infiltrates, no pneumothorax [facility] [address] [place] [address] XR ay Report Signed Patient: EDINSON DODD MR#: [id number] : 1950 Acct:[id number] Age/Sex: 71 / M ADM Date: 07/30/21 Loc: ED Attending Dr: Ordering Physician: DARLENE SORTO MD Date of Service: 07/30/21 Procedure(s): XR chest 1V ap Accession Number(s): [id number] cc: DARLENE SORTO MD Fluoro Time In Minutes: CHEST 1 VIEW INDICATION / CLINICAL INFORMATION: Hypoxia. COMPARISON: 12/08/2019 FINDINGS: SUPPORT DEVICES: Since the last chest radiograph, pacemaker device has been placed. HEART / MEDIASTINUM: Cardiac silhouette size remains mild to moderately enlarged but unchanged. LUNGS / PLEURA: No significant pulmonary or pleural abnormality. No pneumothorax. No significant pleural effusion or suggestion for interstitial pulmonary edema. ADDITIONAL FINDINGS: No significant additional findings. IMPRESSION: 1. Stable cardiomegaly. No acute pulmonary or pleural disease. Signer Name: Nydia Penn MD Signed: 07/30/2021 4:33 PM Workstation Name: [id number] Transcribed By: Dictated By: Nydia Penn MD Electronically Authenticated By: Nydia Penn MD Signed Date/Time: 07/30/21 163 DD/ 163 VQ scan (read by radiologist)-low probability - Differential Diagnosis Hypoxia, CHF exacerbation, COPD exacerbation, PE, CVA, Critical care attestation.: If time is entered above; I have spent that time in minutes in the direct care of this critically ill patient, excluding procedure time. ED Disposition Clinical Impression: Hypoxia, Fatigue Disposition: ADMITTED INPATIENT Is pt being admited?: Yes Does the pt Need Aspirin: No Condition: Fair Referrals: HELADIO GARZA [Other] - 3-5 Days Time of Disposition: 21:17 (Care transferred over to hospitalist (Dr. Chavez))
[2021-07-30 16:14] LABS: Hematocrit 32.5 % (35.5-45.6); Hemoglobin 9.8 gm/dl (11.8-15.2); Mean Corpuscular HGB Conc 30 % (32-34); Mean Corpuscular Volume 68 fl (84-94); Platelet Count 263 K/mm3 (140-440); Red Blood Count 4.78 M/mm3 (3.65-5.03); Red Cell Distribution Width 21.1 % (13.2-15.2)
[2021-07-30 16:21] LABS: INR 2.3 (0.87-1.13)
--- NOTE | 2021-07-30 16:37 | XRay Report ---
CHEST 1 VIEW INDICATION / CLINICAL INFORMATION: Hypoxia. COMPARISON: 12/08/2019 FINDINGS: SUPPORT DEVICES: Since the last chest radiograph, pacemaker device has been placed. HEART / MEDIASTINUM: Cardiac silhouette size remains mild to moderately enlarged but unchanged. LUNGS / PLEURA: No significant pulmonary or pleural abnormality. No pneumothorax. No significant pleu ral effusion or suggestion for interstitial pulmonary edema. ADDITIONAL FINDINGS: No significant additional findings. IMPRESSION: 1. Stable cardiomegaly. No acute pulmonary or pleural disease. Signer Name: Nydia Penn MD Signed: 07/30/2021 4:33 PM Workstation Name: [id number]
[2021-07-30 16:38] LABS: Alanine Aminotransferase 5 units/L (7-56); Albumin 2.8 g/dL (3.9-5); BUN/Creatinine Ratio 10; Blood Urea Nitrogen 20 mg/dL (9-20); Calcium 8.4 mg/dL (8.4-10.2); Hemolysis Index 71
[2021-07-30 16:40] LABS: Creatine Kinase MB < 1.0 ng/mL (0.0-4.0)
[2021-07-30 16:48] LABS: Free T4 (Free Thyroxine) 1.56 ng/dL (0.76-1.46)
[2021-07-30 17:34] LABS: Basophils % (Manual) 0 % (0.0-1.8); Eosinophils % (Manual) 0 % (0.0-4.3); Total Cells Counted 100
[2021-07-30 17:35] LABS: Anisocytosis 1+; Hypochromasia 2+; Platelet Estimate Consistent w Auto
--- NOTE | 2021-07-30 18:56 | Cat Scan Report ---
CT BRAIN: 07/30/2021 INDICATION / CLINICAL INFORMATION: Right leg weakness x1 week. COMPARISON: CT brain 12/08/2019 FINDINGS: BRAIN/INTRACRANIAL STRUCTURES: Unenhanced CT images of the brain demonstrate no evidence of acute abn ormality. Ventricles and sulci are prominent in size, consistent with age-related atrophic change. Diffuse chronic white matter hypoattenuation is present throughout the cerebral hemispheric white mat ter. There is no evidence of acute large vessel territory ischemic injury, hemorrhage, or mass. There are no abnormal extra-axial fluid collections. EXTRACRANIAL STRUCTURES: Unremarkable. IMPRESSION: No acute abnormality. Chronic and age-related changes. No significant change when compared to 12/08/[address] scans at this location are performed using dose reduction to ALARA by means of automated expos ure control. Signer Name: Jose Fontana MD Signed: 07/30/2021 6:51 PM Workstation Name: [id number]
--- NOTE | 2021-07-30 20:44 | Nuclear Medicine Report ---
NUCLEAR MEDICINE PERFUSION LUNG SCAN INDICATION / CLINICAL INFORMATION: Hypoxia. TECHNIQUE: 5.1 mCi of Tc-99m MAA were given by IV. COMPARISON: Chest radiograph dated 07/30/21. FINDINGS: PERFUSION: No significant perfusion defects. Decreased activity in the left lung likely due to soft t issue attenuation. ADDITIONAL FINDINGS: None. IMPRESSION: 1. Low probability for pulmonary embolism. Signer Name: Barry Hicks MD Signed: 07/30/2021 8:40 PM Workstation Name: [id number]
[2021-07-30] MEDS ORDERED: MAGNESIUM HYDROXIDE (MOM) ORAL LIQD UDC PO PRN (22:22)
[2021-07-30] MEDS ORDERED: DEXTROSE 50% IN WATER (25GM) 50 ML SYRINGE IV PRN (22:22)
[2021-07-30] MEDS ORDERED: ONDANSETRON 4 MG/2 ML INJ IV PRN (22:22)
[2021-07-30] MEDS ORDERED: ACETAMINOPHEN 325 MG TAB PO PRN (22:22)
[2021-07-30] MEDS ORDERED: MORPHINE 2 MG/1 ML INJ IV PRN (22:22)
--- NOTE | 2021-07-30 22:39 | History and Physical Report ---
History of Present Illness Date of examination: 07/30/21 Date of admission: 07/30/2021 Chief complaint: Nausea Tremors Shortness of breath History of present illness: 71-year-old male with known history of CHF, diabetes mellitus, COPD, lower extremity DVT and PE presenting to the emergency room today via EMS with multiple medical complaints including tremors in extremities, near syncope, nausea but no vomiting. He has also been having some shortness of breath but denies any chest pain. Symptoms has been ongoing for the past few days but got worse today. Upon arrival of EMS patient was hypoxic with with oxygen saturation of 88% on room air. Patient placed on oxygen by nasal cannula with significant improvement of oxygen saturation to the 90s. He denies any fever or chills, no headache or dizziness and no diaphoresis. Denies any abdominal pain, no hematuria or dysuria. Work-up in the emergency room today, labs were significant for lactic acid of 2.1, BNP of 3562, creatinine of 2.1, INR of 2.3. D-dimer of 1221. CT scanning of the head was unremarkable. Chest x-ray shows stable cardiomegaly. No acute pulmonary or pleural disease. VQ scan shows low probability for pulmonary embolism. Past History Past Medical History: COPD, diabetes, DVT, heart failure, hypertension, pulmonary embolism, other (Kidney stones, neuropathy. a-fib : Chronic, persistent gout) Past Surgical History: Other (neck and back surgery 2011) Social history: smoking (Former smoker- Quit about 10 years ago.) Family history: no significant family history Medications and Allergies Allergies Allergy/AdvReac Type Severity Reaction Status Date / Time No Known Allergies Allergy Verified 07/30/21 22:44 Home Medications Medication Instructions Recorded Confirmed Last Taken Type Ipratropium/Albuterol Sulfate 1 puff IH BID #1 01/28/19 07/31/21 1 Day Ago Rx [Combivent Respimat] ~08/08/19 1 PUFF Pregabalin 50 mg PO BID #60 capsule 01/28/19 07/31/21 1 Day Ago Rx ~08/08/19 50 MG Furosemide [Lasix TAB] 40 mg PO QDAY #30 tablet 12/09/19 07/31/21 Unknown Rx Insulin Aspart (Nf) [NovoLOG 100 5 units SUB-Q TIDAC 12/09/19 07/31/21 Unknown History UNITS/ML VIAL] Magnesium Hydroxide [Milk of 30 ml PO DAILY PRN #200 ml 12/09/19 07/31/21 Unk nown Rx Magnesia] Active Meds: Active Medications Acetaminophen (Acetaminophen 325 Mg Tab) 650 mg PO Q4H PRN PRN Reason: Pain MILD(1-3)/Fever >100.5/LOPEZ Dextrose (Dextrose 50% In Water (25gm) 50 Ml Syringe) 50 ml IV Q30MIN PRN; Protocol PRN Reason: Hypoglycemia Dextrose (Dextrose 50% In Water (25gm) 50 Ml Syringe) 50 ml IV Q30MIN PRN; Protocol PRN Reason: Hypoglycemia Insulin Human Lispro (Insulin Lispro 100 Unit/Ml) 0 unit SUB-Q ACHS JERRY; Protocol Insulin Human Lispro (Insulin Lispro 100 Unit/Ml) 0 unit SUB-Q ACHS JERRY; Protocol Magnesium Hydroxide (Magnesium Hydroxide (Mom) Oral Liqd Udc) 30 ml PO Q4H PRN PRN Reason: Constipation Methylprednisolone Sodium Succinate (Methylprednisolone Sod Succinate 40 Mg/1 Ml Inj) 40 mg IV QDAY JERRY Morphine Sulfate (Morphine 2 Mg/1 Ml Inj) 2 mg IV Q4H PRN PRN Reason: Pain, Moderate (4-6) Morphine Sulfate (Morphine 4 Mg/1 Ml Inj) 4 mg IV Q4H PRN PRN Reason: Pain , Severe (7-10) Ondansetron HCl (Ondansetron 4 Mg/2 Ml Inj) 4 mg IV Q8H PRN PRN Reason: Nausea And Vomiting Sodium Chloride (Sodium Chloride 0.9% 10 Ml Flush Syringe) 10 ml IV BID JERRY Sodium Chloride (Sodium Chloride 0.9% 10 Ml Flush Syringe) 10 ml IV PRN PRN PRN Reason: LINE FLUSH Review of Systems Constitutional: no fever, no chills Ears, nose, mouth and throat: no nasal congestion, no sore throat Cardiovascular: no chest pain, no palpitations Respiratory: shortness of breath, no cough Gastrointestinal: nausea, no abdominal pain, no vomiting, no diarrhea Genitourinary Male: no dysuria, no hematuria, no flank pain, no nocturia Musculoskeletal: no neck pain, no low back pain Integumentary: no rash, no pruritis Neurological: no headaches, no confusion Psychiatric: no anxiety, no depression Endocrine: no polyphagia, no polydipsia, no polyuria, no nocturia Exam - Constitutional Vitals: Temp Pulse Resp BP Pulse Ox 87 18 113/67 97 07/30/21 21:01 07/30/21 21:01 07/30/21 22:15 07/30/21 22:15 General appearance: Present: no acute distress, well-nourished - EENT Eyes: Present: PERRL, EOM intact. Absent: scleral icterus ENT: hearing intact, clear oral mucosa, dentition normal - Neck Neck: Present: supple, normal ROM - Respiratory Respiratory effort: normal Respiratory: bilateral: CTA - Cardiovascular Rhythm: regular Heart Sounds: Present: S1 & S2. Absent: gallop, systolic murmur, diastolic murmur, rub, click - Extremities Extremities: no ischemia, pulses intact, pulses symmetrical, No edema, normal temperature, normal color, Full ROM Peripheral Pulses: within normal limits - Abdominal General gastrointestinal: Present: soft, non-tender, non-distended, normal bowel sounds. Absent: mass - Integumentary Integumentary: Present: clear, warm, dry, normal turgor. Absent: rash - Musculoskeletal Musculoskeletal: strength equal bilaterally - Psychiatric Psychiatric: appropriate mood/affect, intact judgment & insight, memory intact, cooperative - Neurologic Neurologic: CNII-XII intact, no focal deficits, moves all extremities HEART Score - HEART Score Troponin: Troponin T 0.023 ng/mL (0.00-0.029) 07/30/21 15:56 Results - Labs CBC & Chem 7: 07/30/21 15:56 07/30/21 15:56 Labs: Abnormal lab results 07/30/21 07/30/21 07/30/21 Range/Units 15:56 15:56 15:56 Hgb 9.8 L (11.8-15.2) gm/dl Hct 32.5 L (35.5-45.6) % MCV 68 L (84-94) fl MCH 21 L (28-32) pg MCHC 30 L (32-34) % RDW 21.1 H (13.2-15.2) % Seg Neuts % (Manual) 89.0 H (40.0-70.0) % Lymphocytes % (Manual) 6.0 L (13.4-35.0) % Seg Neutrophils # Man 9.2 H (1.8-7.7) K/mm3 Lymphocytes # (Manual) 0.6 L (1.2-5.4) K/mm3 PT 28.3 H (12.2-14.9) Sec. INR 2.30 H (0.87-1.13) D-Dimer (0-234) ng/mlDDU Creatinine 2.1 H (0.8-1.3) mg/dL Glucose 183 H (75-100) mg/dL Lactic Acid (0.7-2.0) mmol/L ALT 5 L (7-56) units/L Total Creatine Kinase 46 L (55-170) units/L NT-Pro-B Natriuret Pep 3562 H (0-900) pg/mL Total Protein 8.4 H (6.3-8.2) g/dL Albumin 2.8 L (3.9-5) g/dL Free T4 (0.76-1.46) ng/dL 07/30/21 07/30/21 07/30/21 Range/Units 15:56 15:56 15:56 Hgb (11.8-15.2) gm/dl Hct (35.5-45.6) % MCV (84-94) fl MCH (28-32) pg MCHC (32-34) % RDW (13.2-15.2) % Seg Neuts % (Manual) (40.0-70.0) % Lymphocytes % (Manual) (13.4-35.0) % Seg Neutrophils # Man (1.8-7.7) K/mm3 Lymphocytes # (Manual) (1.2-5.4) K/mm3 PT (12.2-14.9) Sec. INR (0.87-1.13) D-Dimer 1221.74 H (0-234) ng/mlDDU Creatinine (0.8-1.3) mg/dL Glucose (75-100) mg/dL Lactic Acid 2.10 H* (0.7-2.0) mmol/L ALT (7-56) units/L Total Creatine Kinase (55-170) units/L NT-Pro-B Natriuret Pep (0-900) pg/mL Total Protein (6.3-8.2) g/dL Albumin (3.9-5) g/dL Free T4 1.56 H (0.76-1.46) ng/dL Assessment and Plan - Patient Problems (1) Dyspnea Current Visit: No Status: Acute Qualifiers: Dyspnea type: dyspnea on exertion Qualified Code(s): R06.00 - Dyspnea, unspecified Plan to address problem: Possibly secondary to underlying history of COPD and CHF. Will place patient on oxygen and keep O2 saturation greater or equal to 92%. (2) CRI (chronic renal insufficiency) Current Visit: No Status: Acute Plan to address problem: Will monitor BUN and creatinine. (3) COPD (chronic obstructive pulmonary disease) Current Visit: No Status: Chronic Plan to address problem: Patient will be placed on nebulizing treatments as needed. (4) Diabetes Current Visit: No Status: Chronic Plan to address problem: Patient on sliding scale insulin. Will monitor Accu-Cheks. (5) HTN (hypertension) Current Visit: No Status: Chronic Plan to address problem: Will resume routine home medications and monitor vital signs closely. (6) Chronic atrial fibrillation Current Visit: No Status: Acute Plan to address problem: Rate controlled. Will monitor EKG. (7) DVT prophylaxis Current Visit: No Status: Acute Plan to address problem: Will place on subcutaneous heparin. (8) Full code status Current Visit: No Status: Acute Plan to address problem: Patient is full code.
[2021-07-31] MEDS: MORPHINE 4 MG/1 ML INJ IV PRN ×2 (01:12→16:52)
[2021-07-31] MEDS ORDERED: INSULIN LISPRO 100 UNIT/ML SUB-Q SCH (07:30)
[2021-07-31] MEDS: INSULIN LISPRO 100 UNIT/ML SUB-Q SCH ×3 (08:36→17:10)
--- NOTE | 2021-07-31 09:44 | Consultation ---
History of Present Illness Reason for consult: dyspnea, cough, COPD, hypoxemia History of present illness: This is a gentleman with a hx of afib, cardiomyopathy, PE, CHF chronic renal failure htn, dm and copd who comes in with sob and hypoxia. He reports that he has been weak and has become more sob. In the er he was noted to be sob and hypoxic. He was started on o2 and neb tx. He also had le pain worsening since June w edema. He thinks that his pain is from neuropathy. He reports that he has been compliant w his meds and takes alb . He reports a hx of tobacco abuse but nobne recently. He reports some chest congestion. No sputum production, fever or chills. Past History Past Medical History: COPD, diabetes, DVT, heart failure, hypertension, pulmonary embolism, other (Kidney stones, neuropathy. a-fib : Chronic, persistent gout, CARDEIOMYOPATHY EF REPORTS 2 YRS AGO 25 TO 35%) Past Surgical History: Other (neck and back surgery 2011) Social history: lives with family, smoking (Former smoker- Quit about 10 years ago.) Family history: hypertension Medications and Allergies Allergies Allergy/AdvReac Type Severity Reaction Status Date / Time No Known Allergies Allergy Verified 07/30/21 22:44 Home Medications Medication Instructions Recorded Confirmed Last Taken Type Ipratropium/Albuterol Sulfate 1 puff IH BID #1 01/28/19 07/31/21 1 Day Ago Rx [Combivent Respimat] ~08/08/19 1 PUFF Pregabalin 50 mg PO BID #60 capsule 01/28/19 07/31/21 1 Day Ago Rx ~08/08/19 50 MG Furosemide [Lasix TAB] 40 mg PO QDAY #30 tablet 12/09/19 07/31/21 Unknown Rx Insulin Aspart (Nf) [NovoLOG 100 5 units SUB-Q TIDAC 12/09/19 07/31/21 Unknown History UNITS/ML VIAL] Magnesium Hydroxide [Milk of 30 ml PO DAILY PRN #200 ml 12/09/19 07/31/21 Unknown Rx Magnesia] Active Meds: Active Medications Acetaminophen (Acetaminophen 325 Mg Tab) 650 mg PO Q4H PRN PRN Reason: Pain MILD(1-3)/Fever >100.5/LOPEZ Dextrose (Dextrose 50% In Water (25gm) 50 Ml Syringe) 50 ml IV Q30MIN PRN; Protocol PRN Reason: Hypoglycemia Insulin Human Lispro (Insulin Lispro 100 Unit/Ml) 0 unit SUB-Q ACHS JERRY; Protocol Last Admin: 07/31/21 08:36 Dose: Not Given Magnesium Hydroxide (Magnesium Hydroxide (Mom) Oral Liqd Udc) 30 ml PO Q4H PRN PRN Reason: Constipation Methylprednisolone Sodium Succinate (Methylprednisolone Sod Succinate 40 Mg/1 Ml Inj) 40 mg IV QDAY JERRY Morphine Sulfate (Morphine 2 Mg/1 Ml Inj) 2 mg IV Q4H PRN PRN Reason: Pain, Moderate (4-6) Morphine Sulfate (Morphine 4 Mg/1 Ml Inj) 4 mg IV Q4H PRN PRN Reason: Pain , Severe (7-10) Last Admin: 07/31/21 01:12 Dose: 4 mg Ondansetron HCl (Ondansetron 4 Mg/2 Ml Inj) 4 mg IV Q8H PRN PRN Reason: Nausea And Vomiting Pneumococcal Polyvalent Vaccine (Pneumococcal 23 Valent 0.5 Ml Vial) 0.5 ml IM .ONCE ONE Stop: 07/31/21 10:01 Sodium Chloride (Sodium Chloride 0.9% 10 Ml Flush Syringe) 10 ml IV BID JERRY Sodium Chloride (Sodium Chloride 0.9% 10 Ml Flush Syringe) 10 ml IV PRN PRN PRN Reason: LINE FLUSH Review of Systems Constitutional: chronic pain Cardiovascular: lightheadedness, high blood pressure, leg edema, decreased exercise tolerance Respiratory: cough, congestion, respiratory infections Musculoskeletal: other (neuropathy) Integumentary: darkening of skin Physical Examination Vital signs: Vital Signs Pulse BP Pulse Ox 100 H 120/60 93 07/30/21 15:19 07/30/21 15:19 07/30/21 15:19 General appearance: no acute distress, alert Eyes: non-icteric ENT: oropharynx moist Neck: supple Ascultation: Bilateral: clear Cardiovascular: regular rate and rhythm Gastrointestinal: normoactive bowel sounds, non-tender Integumentary: other (hyperpimentation in le) Extremities: edema normal mental status, non-focal exam mood appropriate, affect normal Results - Laboratory Findings CBC and BMP: 07/30/21 15:56 07/30/21 15:56 PT/INR, D-dimer PT 28.3 Sec. (12.2-14.9) H 07/30/21 15:56 INR 2.30 (0.87-1.13) H 07/30/21 15:56 D-Dimer 1221.74 ng/mlDDU (0-234) H 07/30/21 15:56 Abnormal lab findings: Abnormal Labs 07/30/21 07/30/21 07/30/21 15:56 15:56 15:56 Hgb 9.8 L Hct 32.5 L MCV 68 L MCH 21 L MCHC 30 L RDW 21.1 H Seg Neuts % (Manual) 89.0 H Lymphocytes % (Manual) 6.0 L Seg Neutrophils # Man 9.2 H Lymphocytes # (Manual) 0.6 L PT 28.3 H INR 2.30 H D-Dimer Creatinine 2.1 H Glucose 183 H Lactic Acid ALT 5 L Total Creatine Kinase 46 L NT-Pro-B Natriuret Pep 3562 H Total Protein 8.4 H Albumin 2.8 L Free T4 07/30/21 07/30/21 07/30/21 15:56 15:56 15:56 Hgb Hct MCV MCH MCHC RDW Seg Neuts % (Manual) Lymphocytes % (Manual) Seg Neutrophils # Man Lymphocytes # (Manual) PT INR D-Dimer 1221.74 H Creatinine Glucose Lactic Acid 2.10 H* ALT Total Creatine Kinase NT-Pro-B Natriuret Pep Total Protein Albumin Free T4 1.56 H - Diagnostic Findings Chest x-ray: report reviewed, image reviewed Assessment and Plan - Patient Problems (1) Fatigue Current Visit: Yes Status: Acute (2) Hypoxia Current Visit: Yes Status: Acute (3) Afib Current Visit: Yes Status: Chronic (4) Acute HFrEF (heart failure with reduced ejection fraction) Current Visit: No Status: Acute (5) Acute on chronic HFrEF (heart failure with reduced ejection fraction) Current Visit: No Status: Acute (6) Anemia Current Visit: No Status: Acute Qualifiers: Anemia type: unspecified type Qualified Code(s): D64.9 - Anemia, unspecified (7) CHF (congestive heart failure) Current Visit: No Status: Acute Qualifiers: Heart failure type: combined systolic and diastolic Heart failure chronicity: chronic Qualified Code(s): I50.42 - Chronic combined systolic (congestive) and diastolic (congestive) heart failure (8) CRI (chronic renal insufficiency) Current Visit: No Status: Acute (9) Chronic atrial fibrillation Current Visit: No Status: Acute (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 Current Visit: No Status: Acute (11) Lower extremity edema Current Visit: No Status: Acute (12) Shortness of breath Current Visit: No Status: Acute (13) COPD (chronic obstructive pulmonary disease) Current Visit: No Status: Chronic (14) Diabetes Current Visit: No Status: Chronic (15) HTN (hypertension) Current Visit: No Status: Chronic (16) History of DVT (deep vein thrombosis) Current Visit: No Status: Chronic (17) History of pulmonary embolism Current Visit: No Status: Chronic (18) Peripheral neuropathy Current Visit: No Status: Chronic Qualifiers: Peripheral neuropathy type: polyneuropathy, unspecified Qualified Code(s): G62.9 - Polyneuropathy, unspecified (19) Gout Current Visit: No Status: Inactive
[2021-07-31] MEDS ORDERED: PNEUMOCOCCAL 23 Valent 0.5 ML VIAL IM ONE (10:00)
[2021-07-31] MEDS: methylPREDNISolone Sod Succinate 40 MG/1 ML INJ IV SCH (10:22)
[2021-07-31 10:39] LABS: Bacteria,Urine 1+ /HPF (Negative); Bilirubin,Urine NEG (Negative); Blood,Urine NEG (Negative); Color,Urine Yellow (Yellow); Hyaline Casts,Urine 16 /LPF; Mucus,Urine FEW /HPF
--- NOTE | 2021-07-31 10:44 | Consultation ---
History of Present Illness Consult date: 07/31/21 Requesting physician: JESSENIA OMER Consult reason: congestive heart failure History of present illness: 71-year-old male [facility] has poor cardiac follow- up has a [employer] AICD last interrogated 2 years ago at [facility]. History of atrial fibrillation nonischemic cardiomyopathy congestive heart failure DVT COPD dm-1 back issues. Was sent by the visiting nurse for hyp erkalemia and renal sufficiency. Patient has shortness of breath after 10 to 15 minutes which is baseline. Has no PND at this time. Has right foot pain. Morning neuropathy. Denies any fever chills nausea or syncope. States having AICD placed after syncope several years ago. Review of records from [facility] shows last ischemic evaluation 2018 no significant ischemia. An EF of 20- 25% in 2020. Review of the chart EMS was called for hypoxemia on 88% on room air. Negative VQ scan patient is a poor historian Past History Past Medical History: COPD, diabetes, DVT, heart failure, hypertension, pulmonary embolism, other (Kidney stones, neuropathy. a-fib : Chronic, persistent gout) Past Surgical History: Other (neck and back surgery [address] [facility] a[facility] 2014) Social history: smoking (Former smoker- Quit about 10 years ago.) Family history: no significant family history Medications and Allergies Allergies Allergy/AdvReac Type Severity Reaction Status Date / Time No Known Allergies Allergy Verified 07/30/21 22:44 Home Medications Medication Instructions Recorded Confirmed Last Taken Type Ipratropium/Albuterol Sulfate 1 puff IH BID #1 01/28/19 07/31/21 1 Day Ago Rx [Combivent Respimat] ~08/08/19 1 PUFF Pregabalin 50 mg PO BID #60 capsule 01/28/19 07/31/21 1 Day Ago Rx ~08/08/19 50 MG Furosemide [Lasix TAB] 40 mg PO QDAY #30 tablet 12/09/19 07/31/21 Unknown Rx Insulin Aspart (Nf) [NovoLOG 100 5 units SUB-Q TIDAC 12/09/19 07/31/21 Unknown History UNITS/ML VIAL] Magnesium Hydroxide [Milk of 30 ml PO DAILY PRN #200 ml 12/09/19 07/31/21 U nknown Rx Magnesia] Active Meds: Active Medications Acetaminophen (Acetaminophen 325 Mg Tab) 650 mg PO Q4H PRN PRN Reason: Pain MILD(1-3)/Fever >100.5/LOPEZ Dextrose (Dextrose 50% In Water (25gm) 50 Ml Syringe) 50 ml IV Q30MIN PRN; Protocol PRN Reason: Hypoglycemia Insulin Human Lispro (Insulin Lispro 100 Unit/Ml) 0 unit SUB-Q ACHS [facility]; Protocol Last Admin: 07/31/21 08:36 Dose: Not Given Magnesium Hydroxide (Magnesium Hydroxide (Mom) Oral Liqd Udc) 30 ml PO Q4H PRN PRN Reason: Constipation Methylprednisolone Sodium Succinate (Methylprednisolone Sod Succinate 40 Mg/1 Ml Inj) 40 mg IV QDAY [facility] Last Admin: 07/31/21 10:22 Dose: 40 mg Morphine Sulfate (Morphine 2 Mg/1 Ml Inj) 2 mg IV Q4H PRN PRN Reason: Pain, Moderate (4-6) Morphine Sulfate (Morphine 4 Mg/1 Ml Inj) 4 mg IV Q4H PRN PRN Reason: Pain , Severe (7-10) Last Admin: 07/31/21 01:12 Dose: 4 mg Ondansetron HCl (Ondansetron 4 Mg/2 Ml Inj) 4 mg IV Q8H PRN PRN Reason: Nausea And Vomiting Sodium Chloride (Sodium Chloride 0.9% 10 Ml Flush Syringe) 10 ml IV BID [facility] Last Admin: 07/31/21 10:23 Dose: 10 ml Sodium Chloride (Sodium Chloride 0.9% 10 Ml Flush Syringe) 10 ml IV PRN PRN PRN Reason: LINE FLUSH Review of Systems All systems: negative ([facility]) Physical Examination Vital Signs Pulse BP Pulse Ox 100 H 120/60 93 07/30/21 15:19 07/30/21 15:19 07/30/21 15:19 General appearance: no acute distress, well-nourished HEENT: Positive: PERRL, Mucus Membranes Moist Neck: Positive: neck supple, trachea midline Cardiac: Positive: Reg Rate and Rhythm, S1/S2. Negative: Audible Murmur Lungs: Positive: clear to auscultation, Normal Breath Sounds Neuro: Positive: Grossly Intact Abdomen: Positive: Soft, Active Bowel Sounds. Negative: Tender, Distended Male genitourinary: Positive: normal Skin: Positive: Clear Incision: Cardiac Cath Site Musculoskeletal: No Pain, Normal Range of Motion Extremities: Present: normal, Other (palable pd pulses bilaterally, ankle swelling and chronic changes ). Absent: edema Results 07/30/21 15:56 07/30/21 15:56 Cardiac Enzymes 07/30/21 Range/Units 15:56 AST 18 (5-40) units/L CK-MB (CK-2) < 1.0 (0.0-4.0) ng/mL Coagulation 07/30/21 Range/Units 15:56 PT 28.3 H (12.2-14.9) Sec. INR 2.30 H (0.87-1.13) CBC 07/30/21 Range/Units 15:56 WBC 10.3 (4.5-11.0) K/mm3 RBC 4.78 (3.65-5.03) M/mm3 Hgb 9.8 L (11.8-15.2) gm/dl Hct 32.5 L (35.5-45.6) % Plt Count 263 (140-440) K/mm3 Comprehensive Metabolic Panel 07/30/21 Range/Units 15:56 Sodium 138 (137-145) mmol/L Potassium 4.5 (3.6-5.0) mmol/L Chloride 100.5 (98-107) mmol/L Carbon Dioxide 23 (22-30) mmol/L BUN 20 (9-20) mg/dL Creatinine 2.1 H (0.8-1.3) mg/dL Glucose 183 H (75-100) mg/dL Calcium 8.4 (8.4-10.2) mg/dL AST 18 (5-40) units/L ALT 5 L (7-56) units/L Alkaline Phosphatase 72 (35-129) units/L Total Protein 8.4 H (6.3-8.2) g/dL Albumin 2.8 L (3.9-5) g/dL - Imaging and Cardiology Stress echo: report reviewed (2018 negative lexiscan for ischemia) Echo: report reviewed (2020 ef 20-25% mild to moderate mr and mild ai and mild tr) EKG interpretations - Telemetry EKG Rhythm: Atrial Fibrillation Assessment and Plan 71 y/o male with chf and AICD diabetes neuropathy acute on chronic renal sufficiency hyperkalemia had hypoxemia when he came into the hospital from EMS run. Patient is currently satting in the 90s. We will continue diuretic therapy low-dose carvedilol. No ADRIAN or ARB secondary to renal sufficiency. Patient's Pradaxa will be adjusted for renal insufficiency. Repeat echocardiogram. And pain management for patient's right foot pain. - Patient Problems (1) AICD (automatic cardioverter/defibrillator) present Current Visit: Yes Status: Chronic (2) Afib Current Visit: Yes Status: Chronic (3) Fatigue Current Visit: Yes Status: Acute (4) NETO (acute kidney injury) Current Visit: No Status: Acute (5) Acute HFrEF (heart failure with reduced ejection fraction) Current Visit: No Status: Acute (6) Hypoxia Current Visit: Yes Status: Acute
--- NOTE | 2021-07-31 11:14 | Progress Note ---
Subjective Date of service: 07/31/21 Interval history: 71-year-old male with known history of CHF, diabetes mellitus, COPD, lower extremity DVT and PE presenting to the emergency room today via EMS with multiple medical complaints including tremors in extremities, near syncope, nausea but no vomiting. He has also been having some shortness of breath but denies any chest pain. Symptoms has been ongoing for the past few days but got worse today. Upon arrival of EMS patient was hypoxic with with oxygen saturation of 88% on room air. Patient placed on oxygen by nasal cannula with significant improvement of oxygen saturation to the 90s. He denies any fever or chills, no headache or dizziness and no diaphoresis. Denies any abdominal pain, no hematuria or dysuria. Work-up in the emergency room today, labs were significant for lactic acid of 2.1, BNP of 3562, creatinine of 2.1, INR of 2.3. D-dimer of 1221. CT scanning of the head was unremarkable. Chest x-ray shows stable cardiomegaly. No acute pulmonary or pleural disease. VQ scan shows low probability for pulmonary embolism. 07/31 patient is alert and oriented. States he feels better. Complains of burning pain in the feet. Denies any chest pain or shortness of breath. No home medications listed. Discussed with patient's family over the phone r egarding medications but unable to get a list except that he is on Pradaxa 150 mg. Cardiology consulted. Lab results reviewed Assessment and plan COPD-not in exacerbation Pulmonary consulted Continue management per pulmonary 6-minute walk prior to discharge CHF-compensated EF 15 to 20% Patient denies any chest pain or shortness of breath Telemetry Cardiology consulted and discussed with Dr. Li We will start on Lasix p.o. Low-dose beta-elena Discussed with nursing staff to obtain home medication list s/p AICD placement Permanent atrial fibrillation-rate controlled Start on home medication Pradaxa but will reduce the dose to 75 mg due to chronic kidney disease Type 2 diabetes Continue insulin sliding scale coverage Check A1c Microcytic anemia Check stool for occult blood Burning pain in the legs and feet Suspect diabetic peripheral neuropathy Start on low-dose gabapentin Check iron, TIBC, ferritin and B12 levels Monitor H&H and transfuse as needed Objective - Constitutional Vitals: Vital Signs - 12hr 07/30/21 07/30/21 07/30/21 23:15 23:31 23:45 Temperature Pulse Rate Pulse Rate [ Right Brachial] Respiratory Rate Blood Pressure 118/72 118/72 118/72 O2 Sat by Pulse 98 99 98 Oximetry 07/31/21 07/31/21 07/31/21 00:01 00:15 00:31 Temperature Pulse Rate Pulse Rate [ Right Brachial] Respiratory Rate Blood Pressure 115/64 115/64 115/64 O2 Sat by Pulse 98 98 98 Oximetry 07/31/21 07/31/21 07/31/21 00:32 00:41 05:37 Temperature 97.6 F Pulse Rate 83 Pulse Rate [ 87 Right Brachial] Respiratory 18 Rate Blood Pressure 115/64 132/68 O2 Sat by Pulse 98 98 95 Oximetry General appearance: Present: no acute distress, well-nourished - EENT Eyes: PERRL, EOM intact ENT: hearing intact, clear oral mucosa - Neck Neck: supple, normal ROM, no masses or JVD - Respiratory Respiratory effort: normal Respiratory: bilateral: CTA - Cardiovascular Rhythm: irregularly irregular Heart Sounds: Present: S1 & S2 Extremities: pulses intact, No edema - Gastrointestinal General gastrointestinal: Present: soft, non-tender Rectal Exam: deferred - Genitourinary Male genitourinary: deferred - Integumentary Integumentary: clear - Musculoskeletal Musculoskeletal: strength equal bilaterally - Neurologic Neurologic: moves all extremities - Psychiatric Psychiatric: appropriate mood/affect - Labs CBC & Chem 7: 07/30/21 15:56 07/30/21 15:56 Labs: Abnormal lab results 07/30/21 07/30/21 07/30/21 Range/Units 15:56 15:56 15:56 Hgb 9.8 L (11.8-15.2) gm/dl Hct 32.5 L (35.5-45.6) % MCV 68 L (84-94) fl MCH 21 L (28-32) pg MCHC 30 L (32-34) % RDW 21.1 H (13.2-15.2) % Seg Neuts % (Manual) 89.0 H (40.0-70.0) % Lymphocytes % (Manual) 6.0 L (13.4-35.0) % Seg Neutrophils # Man 9.2 H (1.8-7.7) K/mm3 Lymphocytes # (Manual) 0.6 L (1.2-5.4) K/mm3 PT 28.3 H (12.2-14.9) Sec. INR 2.30 H (0.87-1.13) D-Dimer (0-234) ng/mlDDU Creatinine 2.1 H (0.8-1.3) mg/dL Glucose 183 H (75-100) mg/dL Lactic Acid (0.7-2.0) mmol/L ALT 5 L (7-56) units/L Total Creatine Kinase 46 L (55-170) units/L NT-Pro-B Natriuret Pep 3562 H (0-900) pg/mL Total Protein 8.4 H (6.3-8.2) g/dL Albumin 2.8 L (3.9-5) g/dL Free T4 (0.76-1.46) ng/dL Urine WBC (Auto) (0.0-6.0) /HPF 07/30/21 07/30/21 07/30/21 Range/Units 15:56 15:56 15:56 Hgb (11.8-15.2) gm/dl Hct (35.5-45.6) % MCV (84-94) fl MCH (28-32) pg MCHC (32-34) % RDW (13.2-15.2) % Seg Neuts % (Manual) (40.0-70.0) % Lymphocytes % (Manual) (13.4-35.0) % Seg Neutrophils # Man (1.8-7.7) K/mm3 Lymphocytes # (Manual) (1.2-5.4) K/mm3 PT (12.2-14.9) Sec. INR (0.87-1.13) D-Dimer 1221.74 H (0-234) ng/mlDDU Creatinine (0.8-1.3) mg/dL Glucose (75-100) mg/dL Lactic Acid 2.10 H* (0.7-2.0) mmol/L ALT (7-56) units/L Total Creatine Kinase (55-170) units/L NT-Pro-B Natriuret Pep (0-900) pg/mL Total Protein (6.3-8.2) g/dL Albumin (3.9-5) g/dL Free T4 1.56 H (0.76-1.46) ng/dL Urine WBC (Auto) (0.0-6.0) /HPF 07/31/21 Range/Units 09:50 Hgb (11.8-15.2) gm/dl Hct (35.5-45.6) % MCV (84-94) fl MCH (28-32) pg MCHC (32-34) % RDW (13.2-15.2) % Seg Neuts % (Manual) (40.0-70.0) % Lymphocytes % (Manual) (13.4-35.0) % Seg Neutrophils # Man (1.8-7.7) K/mm3 Lymphocytes # (Manual) (1.2-5.4) K/mm3 PT (12.2-14.9) Sec. INR (0.87-1.13) D-Dimer (0-234) ng/mlDDU Creatinine (0.8-1.3) mg/dL Glucose (75-100) mg/dL Lactic Acid (0.7-2.0) mmol/L ALT (7-56) units/L Total Creatine Kinase (55-170) units/L NT-Pro-B Natriuret Pep (0-900) pg/mL Total Protein (6.3-8.2) g/dL Albumin (3.9-5) g/dL Free T4 (0.76-1.46) ng/dL Urine WBC (Auto) 9.0 H (0.0-6.0) /HPF HEART Score - HEART Score Troponin: Troponin T 0.023 ng/mL (0.00-0.029) 07/30/21 15:56
[2021-07-31] MEDS: carvediloL 3.125 MG TAB PO SCH ×2 (11:42→23:00)
[2021-07-31] MEDS: FUROSEMIDE 40 MG TAB PO SCH (11:43)
[2021-07-31 12:00] LABS: Iron 11 ug/dL (49-181); Total Iron Binding Capacity 277 mcg/dL (250-450)
[2021-07-31] MEDS: DABIGATRAN 75 MG CAP PO SCH ×2 (13:40→23:12)
[2021-07-31] MEDS: GABAPENTIN 100 MG CAP PO SCH ×2 (13:43→23:12)
[2021-07-31] MEDS ORDERED: ALBUTEROL 2.5 MG/3 ML NEBU IH PRN (19:00)
[2021-08-01] MEDS: INSULIN LISPRO 100 UNIT/ML SUB-Q SCH ×5 (00:10→22:36)
[2021-08-01] MEDS: MORPHINE 4 MG/1 ML INJ IV PRN (00:12)
[2021-08-01] MEDS: BUDESONIDE 0.25 MG/2 ML NEBU IH SCH ×3 (01:40→20:25)
[2021-08-01] MEDS: ARFORMOTEROL 15 MCG/2 ML NEBU IH SCH ×3 (01:40→20:25)
[2021-08-01] MEDS: GABAPENTIN 100 MG CAP PO SCH ×3 (05:04→22:36)
[2021-08-01 08:17] LABS: Hematocrit 31.9 % (35.5-45.6); Hemoglobin 9.5 gm/dl (11.8-15.2); Mean Corpuscular HGB Conc 30 % (32-34); Mean Corpuscular Volume 68 fl (84-94); Platelet Count 324 K/mm3 (140-440); Red Blood Count 4.71 M/mm3 (3.65-5.03)
[2021-08-01 08:38] LABS: Calcium 9.6 mg/dL (8.4-10.2)
[2021-08-01] MEDS: carvediloL 3.125 MG TAB PO SCH ×2 (10:19→22:36)
[2021-08-01] MEDS: FUROSEMIDE 40 MG TAB PO SCH (10:20)
[2021-08-01] MEDS: methylPREDNISolone Sod Succinate 40 MG/1 ML INJ IV SCH (10:20)
[2021-08-01] MEDS: DABIGATRAN 75 MG CAP PO SCH ×2 (10:20→22:35)
--- NOTE | 2021-08-01 11:20 | Progress Note ---
Assessment and Plan 71 y/o male with hypoxic respiratory failure likely secondary to volume overload and possibly COPD exacerbation. 1. Suggest changing to oral prednisone and do 40mg daily for 5 days then stop 2. Suggest daily net negative fluid balance 3. Agree that walk test should be obtained prior to discharge 4. Will see PRN Subjective Date of service: 08/01/21 Interval history: Patient weaned to room air. Stable. Objective Vital Signs - 12hr 08/01/21 08/01/21 08/01/21 00:00 05:21 09:54 Temperature 97.5 F L Pulse Rate 82 Pulse Rate [ 74 Anterior Bilateral Throughout] Pulse Rate [ 74 Bilateral Throughout] Pulse Rate [ 80 Right Brachial] Respiratory 18 18 Rate Respiratory 18 Rate [Anterior Bilateral Throughout] Respiratory 18 Rate [Bilateral Throughout] Blood Pressure 136/78 O2 Sat by Pulse 95 93 Oximetry 08/01/21 08/01/21 09:58 10:19 Temperature Pulse Rate 82 Pulse Rate [ Anterior Bilateral Throughout] Pulse Rate [ Bilateral Throughout] Pulse Rate [ Right Brachial] Respiratory Rate Respiratory Rate [Anterior Bilateral Throughout] Respiratory Rate [Bilateral Throughout] Blood Pressure 132/66 O2 Sat by Pulse 93 Oximetry Constitutional: no acute distress, alert Eyes: non-icteric ENT: oropharynx moist Neck: supple Ascultation: Bilateral: clear Cardiovascular: regular rate and rhythm Gastrointestinal: normoactive bowel sounds, non-tender Integumentary: other (hyperpimentation in le) Extremities: edema Neurologic: normal mental status, non-focal exam Psychiatric: mood appropriate, affect normal CBC and BMP: 08/01/21 07:50 08/01/21 07:50 ABG, PT/INR, D-dimer: PT/INR, D-dimer PT 28.3 Sec. (12.2-14.9) H 07/30/21 15:56 INR 2.30 (0.87-1.13) H 07/30/21 15:56 D-Dimer 1221.74 ng/mlDDU (0-234) H 07/30/21 15:56 Abnormal lab findings: Abnormal Labs 07/30/21 07/30/21 07/30/21 15:56 15:56 15:56 Hgb 9.8 L Hct 32.5 L MCV 68 L MCH 21 L MCHC 30 L RDW 21.1 H Seg Neuts % (Manual) 89.0 H Lymphocytes % (Manual) 6.0 L Seg Neutrophils # Man 9.2 H Lymphocytes # (Manual) 0.6 L PT 28.3 H INR 2.30 H D-Dimer BUN Creatinine 2.1 H Glucose 183 H POC Glucose Lactic Acid Iron ALT 5 L Total Creatine Kinase 46 L NT-Pro-B Natriuret Pep 3562 H Total Protein 8.4 H Albumin 2.8 L Free T4 Urine WBC (Auto) 07/30/21 07/30/21 07/30/21 15:56 15:56 15:56 Hgb Hct MCV MCH MCHC RDW Seg Neuts % (Manual) Lymphocytes % (Manual) Seg Neutrophils # Man Lymphocytes # (Manual) PT INR D-Dimer 1221.74 H BUN Creatinine Glucose POC Glucose Lactic Acid 2.10 H* Iron ALT Total Creatine Kinase NT-Pro-B Natriuret Pep Total Protein Albumin Free T4 1.56 H Urine WBC (Auto) 07/31/21 07/31/21 07/31/21 01:53 09:50 10:52 Hgb Hct MCV MCH MCHC RDW Seg Neuts % (Manual) Lymphocytes % (Manual) Seg Neutrophils # Man Lymphocytes # (Manual) PT INR D-Dimer BUN Creatinine Glucose POC Glucose 132 H Lactic Acid Iron 11 L ALT Total Creatine Kinase NT-Pro-B Natriuret Pep Total Protein Albumin Free T4 Urine WBC (Auto) 9.0 H 07/31/21 07/31/21 08/01/21 16:10 21:39 07:50 Hgb 9.5 L Hct 31.9 L MCV 68 L MCH 20 L MCHC 30 L RDW 21.0 H Seg Neuts % (Manual) Lymphocytes % (Manual) Seg Neutrophils # Man Lymphocytes # (Manual) PT INR D-Dimer BUN Creatinine Glucose POC Glucose 173 H 159 H Lactic Acid Iron ALT Total Creatine Kinase NT-Pro-B Natriuret Pep Total Protein Albumin Free T4 Urine WBC (Auto) 08/01/21 08/01/21 07:50 07:59 Hgb Hct MCV MCH MCHC RDW Seg Neuts % (Manual) Lymphocytes % (Manual) Seg Neutrophils # Man Lymphocytes # (Manual) PT INR D-Dimer BUN 32 H Creatinine 2.0 H Glucose 119 H POC Glucose 117 H Lactic Acid Iron ALT Total Creatine Kinase NT-Pro-B Natriuret Pep Total Protein Albumin Free T4 Urine WBC (Auto)
--- NOTE | 2021-08-01 14:12 | Electrocardiograph Report ---
[facility] Test Date: 2021-07-30 Test Time: 17:17:48 Pat Name: EDINSON DODD Department: Room: A365 1 Gender: M [employer] Supervisor: SHAUN : [id number] Requested By: DARLENE SORTO Order Number: [id number] Reading MD: Norman Rodriguez Measurements Intervals [place] Rate: 97 P: [place]: QRS: 21 QRSD: 109 T: 33 QT: 381 QTc: 484 Interpretive Statements Atrial fibrillation No previous ECG available for comparison Electronically Signed On 08-01-2021 14:12:15 EDT by Norman Rodriguez
--- NOTE | 2021-08-01 15:40 | Discharge Summary ---
Providers - Providers Date of Admission: 07/30/21 22:26 Date of discharge: 08/01/21 Attending physician: NIRAJ HOUSE 07/30/21 22:34 Consult to Physician [CONS] Routine Comment: Consulting Provider: ARIC BUITRAGO Physician Instructions: Reason For Exam: Dyspnea, hypoxia, H/O COPD 07/31/21 07:52 Consult to Physician [CONS] Routine Comment: Consulting Provider: BAL GREENFIELD Physician Instructions: Reason For Exam: A Fib/ NICMP - not on OAC 08/01/21 08:44 Physical Therapy Evaluation and Treat [CONS] Routine Comment: Reason For Exam: Debility Hospitalization Condition: Good Hospital course: 71-year-old male with known history of CHFrEF 15%, diabetes mellitus, COPD, lower extremity DVT and PE presenting to the emergency room via EMS with multiple medical complaints including tremors in extremities, near syncope, nausea but no vomiting. He has also been having some shortness of breath but denies any chest pain. Symptoms has been ongoing for the past few days but got worse today. Upon arrival of EMS patient was hypoxic with with oxygen saturation of 88% on room air. Patient placed on oxygen by nasal cannula with significant improvement of oxygen saturation to the 90s. Work-up in the emergency room, labs were significant for lactic acid of 2.1, BNP of 3562, creatinine of 2.1, INR of 2.3. D-dimer of 1221. CT scanning of the head was unremarkable. Chest x-ray shows stable cardiomegaly. No acute pulmonary or pleural disease. VQ scan shows low probability for pulmonary embolism. Placed on lasix, nebs treatment and Admitted for further evaluation and Mx, 07/31 patient is alert and oriented. States he feels better. Complains of burning pain in the feet. Denies any chest pain or shortness of breath. No home medications listed. Discussed with patient's family over the phone regarding medications but unable to get a list except that he is on Pradaxa 150 mg. Cardiology consulted. Lab results reviewed. 08/01: cardiology recommended medical Mx. Patient resting on RA. PT recommended HH. Uric acid level elevated, initiated colchicine and steroid. will d/c home today with outpt f/u. medically stable for dc. I saw and evaluated the patient. 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 COPD. Acute on chronic HFrEF. Afib. AICD- [employer]. DM type 2. Hypoxia, resolved. Acute Gout Exam - Constitutional Vitals: Temp Pulse Resp BP Pulse Ox 98.2 F 82 18 121/64 93 08/01/21 11:05 08/01/21 11:05 08/01/21 11:05 08/01/21 11:05 08/01/21 11:19 Plan Activity: advance as tolerated, fall precautions Weight Bearing Status: Non-Weight Bearing Diet: low fat, low salt Special Instructions: physical therapy, home health RN Follow up with: HELADIO GARZA [Other] - 3-5 Days ANNAMARIE GOLDBERG MD [Staff Physician] - 7 Days Prescriptions: Colchicine [Colcrys] 0.6 mg PO BID #14 tablet Ipratropium/Albuterol Sulfate [Combivent Respimat] 1 puff IH BID #1 Ipratropium/Albuterol Sulfate [Combivent Respimat] 1 spray IH QID 30 Days #1 carvediloL [Coreg] 3.125 mg PO BID #60 tablet predniSONE [Deltasone] 20 mg PO QDAY #7 tablet Gabapentin 100 mg PO Q8HR #30 capsule Aspirin EC [Halfprin EC] 81 mg PO QDAY #30 tablet. Furosemide [Lasix TAB] 40 mg PO QDAY #30 tablet Dabigatran [Pradaxa] 75 mg PO BID #60 capsule
--- NOTE | 2021-08-01 16:12 | Progress Note ---
Assessment and Plan 71-year-old male follows in the [employer] [facility] has poor cardiac follow- up has a [employer] AICD last interrogated 2 years ago at [facility]. History of atrial fibrillation nonischemic cardiomyopathy congestive heart failure DVT COPD dm-1 back issues. Was sent by the visiting nurse for hyperkalemia and renal sufficiency. Assessment: NETO Acute on chronic HFrEF Afib AICD- [employer] Hypoxia Cardiographics Stress echo: report reviewed (2018 negative lexiscan for ischemia) Echo: report reviewed (2020 ef 20-25% mild to moderate mr and mild ai and mild tr) Recommendations/plan: Assessment/Plan: Continue low-dose carvedilol, 3.125 mg p.o. twice daily. Continue Lasix 40 mg p.o. daily No ADRIAN/ARB in setting of NETO Continue Pradaxa 75 mg p.o. twice daily. Stable from cardiac standpoint; okay for discharge. Outpatient follow-up appointments: Device check: 08/19/21 0930 [place] office and hospital follow-up 08/29/21 @ 1:00 pm in [place] with Dr. Li. Patient seen in conjunction with Dr. Li who agrees with the assessment and management of this patient. - Patient Problems (1) Shortness of breath Current Visit: Yes Status: Acute (2) Atrial fibrillation Current Visit: Yes Status: Chronic Qualifiers: Atrial fibrillation type: unspecified Qualified Code(s): I48.91 - Unspecified atrial fibrillation (3) NETO (acute kidney injury) Current Visit: Yes Status: Acute Subjective Date of service: 08/01/21 Principal diagnosis: AF, NETO Interval history: Seen and examined today. No acute distress. Doing better overall today Telemetry: Controlled A. fib, rate 80's Intake & Output 08/01/21 08/01/21 08/01/21 07:59 15:59 23:59 Intake Total 200 Output Total 200 Balance 0 Weight 106.8 kg Objective Vital Signs Temp Pulse Pulse Pulse Pulse Resp Resp 08/01/21 11:19 08/01/21 11:05 98.2 F 82 18 08/01/21 10:19 82 08/01/21 09:58 08/01/21 09:54 74 74 18 08/01/21 05:21 97.5 F L 82 18 08/01/21 00:00 80 18 07/31/21 23:00 61 07/31/21 21:30 97.8 F 84 18 07/31/21 17:00 98.6 F 93 H 22 Resp BP Pulse Ox 08/01/21 11:19 93 08/01/21 11:05 121/64 91 08/01/21 10:19 132/66 08/01/21 09:58 93 08/01/21 09:54 18 08/01/21 05:21 136/78 93 08/01/21 00:00 95 07/31/21 23:00 111/61 07/31/21 21:30 111/61 91 07/31/21 17:00 121/67 90 - Physical Examination General: No Apparent Distress HEENT: Positive: Normocephaly, Mucus Membranes Moist Neck: Positive: neck supple, trachea midline Cardiac: Positive: irregularly irregular Neuro: Positive: Grossly Intact Abdomen: Positive: Soft, Active Bowel Sounds. Negative: Tender, Distended Skin: Positive: Clear Musculoskeletal: Normal Range of Motion Extremities: Present: normal, Other (palable pd pulses bilaterally, ankle swelling and chronic changes ). Absent: edema - Labs and Meds CBC 08/01/21 Range/Units 07:50 WBC 7.1 (4.5-11.0) K/mm3 RBC 4.71 (3.65-5.03) M/mm3 Hgb 9.5 L (11.8-15.2) gm/dl Hct 31.9 L (35.5-45.6) % Plt Count 324 (140-440) K/mm3 Comprehensive Metabolic Panel 08/01/21 Range/Units 07:50 Sodium 140 (137-145) mmol/L Potassium 4.9 (3.6-5.0) mmol/L Chloride 101.6 (98-107) mmol/L Carbon Dioxide 26 (22-30) mmol/L BUN 32 H (9-20) mg/dL Creatinine 2.0 H (0.8-1.3) mg/dL Glucose 119 H (75-100) mg/dL Calcium 9.6 (8.4-10.2) mg/dL - Imaging and Cardiology Stress echo: report reviewed (2018 negative lexiscan for ischemia) Echo: report reviewed (2020 ef 20-25% mild to moderate mr and mild ai and mild tr) - Telemetry EKG Rhythm: Atrial Fibrillation - EKG Supraventricular dysrhythmia: atrial fibrillation
[2021-08-01] MEDS: predniSONE 20 MG TAB PO SCH (18:17)
[2021-08-01] MEDS: COLCHICINE 0.6 MG TAB PO SCH (22:35)
[2021-08-02 05:26] VITALS: BP 117/73
[2021-08-02] MEDS: GABAPENTIN 100 MG CAP PO SCH (06:00)
[2021-08-02] MEDS: FUROSEMIDE 40 MG TAB PO SCH (09:08)
[2021-08-02] MEDS: COLCHICINE 0.6 MG TAB PO SCH (09:08)
[2021-08-02] MEDS: INSULIN LISPRO 100 UNIT/ML SUB-Q SCH ×2 (09:08→11:41)
[2021-08-02] MEDS: carvediloL 3.125 MG TAB PO SCH (09:08)
[2021-08-02] MEDS: predniSONE 20 MG TAB PO SCH (09:09)
[2021-08-02] MEDS: DABIGATRAN 75 MG CAP PO SCH (09:09)
[2021-08-02] MEDS: BUDESONIDE 0.25 MG/2 ML NEBU IH SCH (10:41)
[2021-08-02] MEDS: ARFORMOTEROL 15 MCG/2 ML NEBU IH SCH (10:41)
[2021-08-02] MEDS ORDERED: METOPROLOL TARTRATE 25 MG TAB PO SCH (12:00)
--- NOTE | 2021-08-02 15:56 | Progress Note ---
Assessment and Plan 71-year-old male follows in the [employer] [facility] has poor cardiac follow- up has a [employer] AICD last interrogated 2 years ago at [facility]. History of atrial fibrillation nonischemic cardiomyopathy congestive heart failure DVT COPD dm-1 back issues. Was sent by the visiting nurse for hyperkalemia and renal sufficiency. Assessment: NETO Acute on chronic HFrEF Afib AICD- [employer] Hypoxia Cardiographics Stress echo: report reviewed (2018 negative lexiscan for ischemia) Echo: report reviewed (2020 ef 20-25% mild to moderate mr and mild ai and mild tr) Recommendations/plan: Assessment/Plan: Stop coreg. Initiate metoprolol 25 mg PO BID for better rate control. Continue Lasix 40 mg p.o. daily No ADRIAN/ARB in setting of NETO Continue Pradaxa 75 mg p.o. twice daily. Stable from cardiac standpoint; okay for discharge. Outpatient follow-up appointments: Device check: 08/19/21 0930 [place] office and hospital follow-up 08/29/21 @ 1:00 pm in [place] with Dr. Li. Patient seen in conjunction with Dr. Li who agrees with the assessment and management of this patient. - Patient Problems (1) Shortness of breath Status: Acute (2) Atrial fibrillation Status: Chronic Qualifiers: Atrial fibrillation type: unspecified Qualified Code(s): I48.91 - Unspecified atrial fibrillation (3) NETO (acute kidney injury) Status: Acute Subjective Date of service: 08/02/21 Principal diagnosis: AF, NETO Interval history: Seen and examined today. No acute distress. Doing better overall today Telemetry: Controlled A. fib Objective Vital Signs Temp Pulse Pulse Pulse Resp Resp Resp 08/02/21 10:00 68 19 08/02/21 04:44 97.9 F 86 18 08/01/21 22:36 89 08/01/21 22:00 08/01/21 21:33 08/01/21 21:24 98.0 F 89 18 08/01/21 20:25 80 82 18 18 08/01/21 19:21 18 08/01/21 17:19 97.4 F L 89 18 BP Pulse Ox 08/02/21 10:00 95 08/02/21 04:44 117/73 92 08/01/21 22:36 123/73 04/18/22 22:00 95 08/01/21 21:33 97 08/01/21 21:24 123/73 90 08/01/21 20:25 08/01/21 19:21 08/01/21 17:19 133/67 91 - Physical Examination General: No Apparent Distress HEENT: Positive: Normocephaly, Mucus Membranes Moist Neck: Positive: neck supple, trachea midline Cardiac: Positive: irregularly irregular, S1/S2 Lungs: Positive: clear to auscultation Neuro: Positive: Grossly Intact Abdomen: Positive: Soft, Active Bowel Sounds. Negative: Tender, Distended Skin: Positive: Clear Musculoskeletal: Normal Range of Motion Extremities: Present: normal, Other (palable pd pulses bilaterally, ankle swelling and chronic changes ). Absent: edema - Imaging and Cardiology Stress echo: report reviewed (2018 negative lexiscan for ischemia) Echo: report reviewed (2020 ef 20-25% mild to moderate mr and mild ai and mild tr)
--- NOTE | 2021-08-02 18:39 | Event Note ---
Date: 08/02/21 Patient was discharged yesterday by Dr. Enriquez , however due to unknown / technical reasons Patient did not leave, discussed with case management, and requested to assist with discharge Patient is being discharged home with home health.Patient is stable for discharge Please refer to the detailed discharge summary of yesterday
== END 2021-08-02 12:20 | disposition home health service (06) | DRG 291 ==
LOC: ED 15:18 → 3A 22:26
PROVIDERS: ADMIT Internal Medicine Geriatric Medicine; ATTEND Internal Medicine
DX: I13.0 Hypertensive heart and chronic kidney disease with heart failure and stage 1 through stage 4 chronic kidney disease, or unspecified chronic kidney disease (principal); I50.43 Acute on chronic combined systolic (congestive) and diastolic (congestive) heart failure; I48.20 Chronic atrial fibrillation, unspecified; N17.9 Acute kidney failure, unspecified; R06.00 Dyspnea, unspecified; N18.9 Chronic kidney disease, unspecified; E11.22 Type 2 diabetes mellitus with diabetic chronic kidney disease; J44.9 Chronic obstructive pulmonary disease, unspecified; E87.5 Hyperkalemia; D64.9 Anemia, unspecified; M10.9 Gout, unspecified; Z86.718 Personal history of other venous thrombosis and embolism; Z86.711 Personal history of pulmonary embolism; Z87.891 Personal history of nicotine dependence; Z95.810 Presence of automatic (implantable) cardiac defibrillator
CPT/HCPCS: 36415; 70450; 71045; 78580; 80048; 80053; 81001; 82140; 82270; 82550; 82553; 82607; 82728; 82962; 83550; 83735; 83880; 84439; 84443; 84484; 84550; 85007; 85025; 85027; 85379; 85610; 87086; 90732; 93005; 94640; G0378; Q9967; A9540; J1815; J2270; J2920

== ENCOUNTER 2021-12-05 09:29 | Emergency (ER) | payer MEDICARE ==
[2021-12-05] MEDS ORDERED: ONDANSETRON 4 MG/2 ML INJ IV ONE (09:36)
[2021-12-05] MEDS ORDERED: MORPHINE 4 MG/1 ML INJ IV ONE ×2 (09:36→13:47)
--- NOTE | 2021-12-05 09:39 | Emergency Department Report ---
ED Abdominal Pain HPI - General Chief Complaint: Abdominal Pain Stated Complaint: ABDOMINAL PAIN (LEFT) Time Seen by Provider: 12/05/21 09:35 Source: EMS Mode of arrival: Stretcher Limitations: No Limitations - History of Present Illness Initial Comments: 71-year-old male with known history of CHFrEF 15%, diabetes mellitus, COPD, lower extremity DVT and PE currently on anticoagulation presents to the hospital complaints of abdominal pain for 2 days. Patient states he feels like he has "food poisoning" because he has been having cramping abdominal pain with increased flatus. Pain also in the left abdomen, sharp in nature, moderate in intensity. Pain is worse with palpation. No alleviating factors reported. Patient denies previous abdominal surgeries, fever, nausea, vomiting, or diarrhea. Severity scale (0 -10): 4 - Related Data Previous Rx's Medication Instructions Recorded Last Taken Type Aspirin EC [Halfprin EC] 81 mg PO QDAY #30 tablet. 08/01/21 Unknown Rx Colchicine [Colcrys] 0.6 mg PO BID #14 tablet 08/01/21 Unknown Rx Dabigatran [Pradaxa] 75 mg PO BID #60 capsule 08/01/21 Unknown Rx Furosemide [Lasix TAB] 40 mg PO QDAY #30 tablet 08/01/21 Unknown Rx Gabapentin 100 mg PO Q8HR #30 capsule 08/01/21 Unknown Rx Ipratropium/Albuterol Sulfate 1 puff IH BID #1 08/01/21 Unknown Rx [Combivent Respimat] carvediloL [Coreg] 3.125 mg PO BID #60 tablet 08/01/21 Unknown Rx predniSONE [Deltasone] 20 mg PO QDAY #7 tablet 08/01/21 Unknown Rx Ipratropium/Albuterol Sulfate 1 spray IH QID 30 Days #1 08/02/21 Unknown Rx [Combivent Respimat] HYDROcodone/APAP 5-325 [[place] 1 each PO Q6HR PRN #12 tablet 12/05/21 Unknown Rx 5/325] Ondansetron [Zofran Odt] 4 mg PO Q8HR PRN #12 tab.rapdis 12/05/21 Unknown Rx Allergies Allergy/AdvReac Type Severity Reaction Status Date / Time No Known Allergies Allergy Verified 12/05/21 09:37 ED Review of Systems ROS: Stated complaint: ABDOMINAL PAIN (LEFT) Other details as noted in HPI Comment: All other systems reviewed and negative ED Past Medical Hx - Past Medical History Previous Medical History?: Yes Hx Hypertension: Yes Hx Congestive Heart Failure: Yes Hx Diabetes: Yes Hx Deep Vein Thrombosis: Yes (both legs) Hx Pulmonary Embolism: Yes Hx Kidney Stones: Yes Hx COPD: Yes Additional medical history: neuropathy. a-fib : Chronic, persistent gout - Surgical History Hx Pacemaker: Yes Additional Surgical History: neck and back surgery 2011 - Social History Smoking Status: Former Smoker - Medications Home Medications: Home Medications Medication Instructions Recorded Confirmed Last Taken Type Aspirin EC [Halfprin EC] 81 mg PO QDAY #30 tablet. 08/01/21 Unknown Rx Colchicine [Colcrys] 0.6 mg PO BID #14 tablet 08/01/21 Unknown Rx Dabigatran [Pradaxa] 75 mg PO BID #60 capsule 08/01/21 Unknown Rx Furosemide [Lasix TAB] 40 mg PO QDAY #30 tablet 08/01/21 Unknown Rx Gabapentin 100 mg PO Q8HR #30 capsule 08/01/21 Unknown Rx Ipratropium/Albuterol Sulfate 1 puff IH BID #1 08/01/21 Unknown Rx [Combivent Respimat] carvediloL [Coreg] 3.125 mg PO BID #60 tablet 08/01/21 Unknown Rx predniSONE [Deltasone] 20 mg PO QDAY #7 tablet 08/01/21 Unknown Rx Ipratropium/Albuterol Sulfate 1 spray IH QID 30 Days #1 08/02/21 Unknown Rx [Combivent Respimat] HYDROcodone/APAP 5-325 [[place] 1 each PO Q6HR PRN #12 tablet 12/05/21 Unknown Rx 5/325] Ondansetron [Zofran Odt] 4 mg PO Q8HR PRN #12 tab.rapdis 12/05/21 Unknown Rx ED Physical Exam - General Limitations: No Limitations - Other Other exam information: General: No acute distress Head: Atraumatic Eyes: normal appearance ENT: Moist mucous membranes Neck: Normal appearance, no midline tenderness Chest: Clear to auscultation bilaterally CV: Regular rate and rhythm Abdomen: Soft, normal bowel sounds, left lower abdominal tenderness, no rebound or guarding, increase bowel sounds Back: Normal inspection Extremity: Normal inspection, full range of motion Neuro: Alert O x 3, no facial asymmetry, speech clear, no gross motor sensory deficit Psych: Appropriate behavior Skin: No rash ED Course Vital Signs 12/05/21 12/05/21 12/05/21 09:31 09:49 10:01 Temperature 97.8 F Pulse Rate 70 67 60 Respiratory 16 18 20 Rate Blood Pressure 150/64 Blood Pressure 150/70 [Left] O2 Sat by Pulse 94 91 94 Oximetry 12/05/21 10:04 Temperature Pulse Rate Respiratory Rate Blood Pressure Blood Pressure [Left] O2 Sat by Pulse 95 Oximetry - Consultations Consultation #1: 12/05/21 14:36 Case discussed with on-call surgeon regarding CT findings of splenic margin. She recommends oral hydration, pain management, anticoagulation. Patient may return if symptoms worsen. No acute surgical intervention recommended ED Medical Decision Making - Lab Data Result diagrams: 12/05/21 09:48 12/05/21 09:48 Lab Results 12/05/21 12/05/21 12/05/21 Range/Units 09:48 09:48 13:21 WBC 6.5 (4.5-11.0) K/mm3 RBC 4.81 (3.65-5.03) M/mm3 Hgb 11.0 L (11.8-15.2) gm/dl Hct 35.0 L (35.5-45.6) % MCV 73 L (84-94) fl MCH 23 L (28-32) pg MCHC 31 L (32-34) % RDW 23.8 H (13.2-15.2) % Plt Count 299 (140-440) K/mm3 Lymph % (Auto) 16.8 (13.4-35.0) % [place] % (Auto) 10.7 H (0.0-7.3) % Eos % (Auto) 2.7 (0.0-4.3) % Baso % (Auto) 0.7 (0.0-1.8) % Lymph # (Auto) 1.1 L (1.2-5.4) K/mm3 [place] # (Auto) 0.7 (0.0-0.8) K/mm3 Eos # (Auto) 0.2 (0.0-0.4) K/mm3 Baso # (Auto) 0.0 (0.0-0.1) K/mm3 Seg Neutrophils % 69.1 (40.0-70.0) % Seg Neutrophils # 4.5 (1.8-7.7) K/mm3 Sodium 142 (137-145) mmol/L Potassium 3.9 (3.6-5.0) mmol/L Chloride 102.0 (98-107) mmol/L Carbon Dioxide 28 (22-30) mmol/L Anion Gap 16 mmol/L BUN 13 (9-20) mg/dL Creatinine 1.8 H (0.8-1.3) mg/dL Estimated GFR 45 ml/min BUN/Creatinine Ratio 7 % Glucose 96 (75-100) mg/dL Calcium 9.0 (8.4-10.2) mg/dL Total Bilirubin 0.50 (0.1-1.2) mg/dL AST 16 (5-40) units/L ALT 6 L (7-56) units/L Alkaline Phosphatase 94 (35-129) units/L Total Protein 7.2 (6.3-8.2) g/dL Albumin 3.7 L (3.9-5) g/dL Albumin/Globulin Ratio 1.1 % Lipase 15 (13-60) units/L Urine Color Yellow (Yellow) Urine Turbidity Clear (Clear) Specific [place] (Man) 1.010 (1.003-1.030) Ur Protein (Man) <30 mg dl (Negative) mg/dL Ur Ketones (Man) Negative (Negative) Urine Bilirubin (Man) Negative (Negative) Urine WBC (Auto) 1.0 (0.0-6.0) /HPF Urine RBC (Auto) 2.0 (0.0-6.0) /HPF Urine Bacteria (Auto) 1+ (Negative) /HPF Urine RBC (Manual) Negative (Negative) Urine Mucus Few /HPF - Radiology Data Radiology results: report reviewed CT ABDOMEN AND PELVIS WITH CONTRAST INDICATION / CLINICAL INFORMATION: left abd pain. TECHNIQUE: Axial CT images were obtained through the abdomen and pelvis after 100 cc of Omnipaque [address] scans at this location are performed using CT dose reduction for ALARA by means of automated exposure control. COMPARISON: 11/19/2018 FINDINGS: LOWER CHEST: There small bilateral pleural effusions left greater than right. There is mild atelectasis in the lung bases. LIVER: No acute abnormality. GALLBLADDER: Cholelithiasis BILE DUCTS: No significant abnormality. PANCREAS: No significant abnormality. SPLEEN: There are somewhat geographic appearing areas in the spleen which do not enhance. These are nonspecific but may represent areas of splenic infarction. ADRENALS: No significant abnormality. RIGHT KIDNEY / URETER: There are multiple cysts in the right kidney. There is a small nonobstructing calyceal stone in the lower pole. There is no hilar process. There are no ureteral calculi. LEFT KIDNEY / URETER: There are multiple cysts in the left kidney. There is no hydronephrosis. STOMACH / SMALL BOWEL: No significant abnormality. COLON: No significant abnormality. APPENDIX: No significant abnormality. PERITONEUM: No free fluid. No free air. No fluid collection. LYMPH NODES: There are enlarged lymph nodes in the retroperitoneum adjacent to the common iliac vessels. Largest node right measures approximately 2.3 cm in the short axis and on the left measures 2.1 cm. This adenopathy was not present previously. AORTA / ARTERIES: Mild atherosclerotic calcification without acute abnormality. IVC / VEINS: No significant abnormality. URINARY BLADDER: No significant abnormality. REPRODUCTIVE ORGANS: No significant abnormality. ADDITIONAL FINDINGS: None. SKELETAL SYSTEM: No acute abnormality IMPRESSION: 1. There is retroperitoneal adenopathy at the level of the common iliac ve ssels. This is concerning for neoplastic etiology. 2. There is cholelithiasis. 3. There is a small amount of pleural fluid with mild basilar atelectasis. 4. There is no bowel obstruction, inflammation, or free air. - Medical Decision Making 71 yo male presents to the hospital left sided abdominal pain. CT imaging results regarding his been discussed with general surgeon with symptomatic treatment outpatient follow-up recommended. Patient does have cholelithiasis without right upper quadrant pain and incidental finding of retroperitoneal adenopathy noted. Patient recommended to take the report to his primary care doctor for further work-up and evaluation to rule out cancer or other causes of retroperitoneal adenopathy. Patient labs unremarkable. Renal sufficiency chronic. There are no signs of UTI or leukocytosis. Pain improved with ED treatment of IV fluids and pain medications. Patient will be discharged with meds and follow-up. Patient's PMD is affiliated with the [facility] Critical Care Time: No Critical care attestation.: If time is entered above; I have spent that time in minutes in the direct care of this critically ill patient, excluding procedure time. ED Disposition Clinical Impression: Splenic infarct, Retroperitoneal lymphadenopathy, Left sided abdominal pain Disposition: 01 HOME / SELF CARE / HOMELESS Is pt being admited?: No Does the pt Need Aspirin: No Condition: Stable Instructions: Abdominal Pain, Adult Additional Instructions: Take the medication as prescribed. Follow-up with your doctor or doctor/clinic provided. Return if symptoms worsen as indicated by your discharge instructions. Prescriptions: HYDROcodone/APAP 5-325 [[place] 5/325] 1 each PO Q6HR PRN #12 tablet PRN Reason: Pain Ondansetron [Zofran Odt] 4 mg PO Q8HR PRN #12 tab.rapdis PRN Reason: Nausea And Vomiting Referrals: CESAR ALVAREZ MD [Primary Care Provider] - 3-5 Days your, primary care doctor [Other] - 3-5 Days Time of Disposition: 15:03
[2021-12-05 10:05] VITALS: BP 150/64
[2021-12-05 10:12] LABS: Basophils % (Auto) 0.7 % (0.0-1.8); Eosinophils # (Auto) 0.2 K/mm3 (0.0-0.4); Eosinophils % (Auto) 2.7 % (0.0-4.3); Lymphocytes # (Auto) 1.1 K/mm3 (1.2-5.4); Lymphocytes % (Auto) 16.8 % (13.4-35.0); Mean Corpuscular HGB Conc 31 % (32-34); Mean Corpuscular Volume 73 fl (84-94); Monocytes # (Auto) 0.7 K/mm3 (0.0-0.8); Monocytes % (Auto) 10.7 % (0.0-7.3); Platelet Count 299 K/mm3 (140-440); Red Blood Count 4.81 M/mm3 (3.65-5.03)
[2021-12-05 10:21] LABS: Red Cell Distribution Width 23.8 % (13.2-15.2)
[2021-12-05 10:28] LABS: Albumin 3.7 g/dL (3.9-5)
[2021-12-05] MEDS ORDERED: SODIUM CHLORIDE 0.9% 500 ML 500 ML IV ONE (11:04)
--- NOTE | 2021-12-05 12:45 | Cat Scan Report ---
CT ABDOMEN AND PELVIS WITH CONTRAST INDICATION / CLINICAL INFORMATION: left abd pain. TECHNIQUE: Axial CT images were obtained through the abdomen and pelvis after 100 cc of Omnipaque [address] scans at this location are performed using CT dose reduction for ALARA by means of automated exposure control. COMPARISON: 11/19/2018 FINDINGS: LOWER CHEST: There small bilateral pleural effusions left greater than right. There is mild atelectas is in the lung bases. LIVER: No acute abnormality. GALLBLADDER: Cholelithiasis BILE DUCTS: No significant abnormality. PANCREAS: No significant abnormality. SPLEEN: There are somewhat geographic appearing areas in the spleen which do not enhance. These are n onspecific but may represent areas of splenic infarction. ADRENALS: No significant abnormality. RIGHT KIDNEY / URETER: There are multiple cysts in the right kidney. There is a small nonobstructing calyceal stone in the lower pole. There is no hilar process. There are no ureteral calculi. LEFT KIDNEY / URETER: There are multiple cysts in the left kidney. There is no hydronephrosis. STOMACH / SMALL BOWEL: No significant abnormality. COLON: No significant abnormality. APPENDIX: No significant abnormality. PERITONEUM: No free fluid. No free air. No fluid collection. LYMPH NODES: There are enlarged lymph nodes in the retroperitoneum adjacent to the common iliac vesse ls. Largest node right measures approximately 2.3 cm in the short axis and on the left measures 2.1 c m. This adenopathy was not present previously. AORTA / ARTERIES: Mild atherosclerotic calcification without acute abnormality. IVC / VEINS: No significant abnormality. URINARY BLADDER: No significant abnormality. REPRODUCTIVE ORGANS: No significant abnormality. ADDITIONAL FINDINGS: None. SKELETAL SYSTEM: No acute abnormality IMPRESSION: 1. There is retroperitoneal adenopathy at the level of the common iliac vessels. This is concerning f or neoplastic etiology. 2. There is cholelithiasis. 3. There is a small amount of pleural fluid with mild basilar atelectasis. 4. There is no bowel obstruction, inflammation, or free air. Signer Name: Heriberto Carrizales MD Signed: 12/05/2021 12:41 PM Workstation Name: [employer]
[2021-12-05 13:39] LABS: Bacteria,Urine 1+ /HPF (Negative); Mucus,Urine FEW /HPF
[2021-12-05 14:17] LABS: Color,Urine Yellow (Yellow)
== END 2021-12-05 15:20 | disposition home or self-care (01) ==
LOC: ED 09:29
DX: D73.5 Infarction of spleen (principal); R59.1 Generalized enlarged lymph nodes; R10.9 Unspecified abdominal pain; I10 Essential (primary) hypertension; E11.9 Type 2 diabetes mellitus without complications
CPT/HCPCS: 36415; 74177; 80053; 81001; 83690; 85025; 96374; 96375; 96376; 99284; J2270; J2405; J7040; Q9967